=== PATIENT | female | born 1995 | race Caucasian/White ===

== ENCOUNTER 2024-02-25 18:43 | Emergency (ER) | payer OTHER, SELFPAY ==
[2024-02-25 18:45] VITALS: BP 138/60; PULSE 71; RESP 20; TEMP 36.5; O2SAT 100
[2024-02-25 21:34] LABS: Basophils Percent Auto 0.4 % (0.2-1.2); Eosinophils Absolute Auto 0.2 K/mm3 (0-0.3); Eosinophils Percent Auto 2.1 % (0-4.4); Hematocrit 33.5 % (37.0-47.0); Hemoglobin 10.7 g/dL (12.0-15.0); Immature Granulocyte Absolute 0.04 K/mm3 (0.00-0.031); Immature Granulocyte Percent A 0.4 % (0-0.5); Lymphocytes Absolute Auto 1.35 K/mm3 (0.9-3.2); Lymphocytes Percent Auto 12.9 % (18.3-44.2); Mean Corpuscular HGB Conc 31.9 g/dl (32-36); Mean Corpuscular Hemoglobin 25.5 pg (26-34); Mean Corpuscular Volume 79.8 fl (80-100); Mean Platelet Volume 9.2 fl (7.4-10.4); Monocytes Absolute Auto 0.5 K/mm3 (0.1-0.6); Monocytes Percent Auto 5.2 % (2.6-8.5); Neutrophils Absolute Auto 8.3 K/mm3 (1.3-6.7); Platelet Count Result 304 k/mm3 (150-375); Red Cell Distribution Width 14.7 % (11.5-14.5); White Blood Count 10.4 K/mm3 (4.5-10.0)
--- NOTE | 2024-02-25 21:38 | ED.GENADULT ---
HPI - General Adult General Chief complaint: Unspecified Stated complaint: muscle weakness after starting new med Time Seen by Provider: 02/25/24 20:38 History of Present Illness HPI narrative: This is a pleasant 28-year-old female who was recently started on Caplita by her psychiatrist over the weekend. She has taken 3 doses. She has now developed some lower extremity weakness and some thigh pain. Patient has not had uncontrollable movements or restlessness. She has never had side effects with this medication before. No other neurologic deficits. Exam Narrative: APPEARANCE: No apparent distress. Head: atraumatic. EYES: EOMI, NOSE: Atraumatic NECK: Trachea midline RESPIRATORY: No increased rate of breathing CARDIOVASCULAR: RRR, ABDOMINAL: Non-distended MUSCULOSKELETAl: Muscle tenderness to the thighs without skin changes NEURO: Alert. Cranial nerves 2-12 grossly intact. Sensation light touch, motor function cerebellar function intact for 4 extremities. Gait exam was normal. SKIN:: Warm, dry. Normal color PSYCHIATRIC: Normal affect Course Vital Signs Vital signs: Vital Signs Temperature 97.7 F 02/25/24 18:45 Pulse Rate 71 02/25/24 18:45 Respiratory Rate 20 02/25/24 18:45 Blood Pressure 138/60 02/25/24 18:45 Pulse Oximetry 100 02/25/24 18:45 Oxygen Delivery Room Air 02/25/24 18:45 Temperature 97.7 F 02/25/24 18:45 Pulse Rate 71 02/25/24 18:45 Respiratory Rate 20 02/25/24 18:45 Blood Pressure 138/60 02/25/24 18:45 Pulse Oximetry 100 02/25/24 18:45 Oxygen Delivery Room Air 02/25/24 18:45 Medical Decision Making [facility] Narrative Medical decision making narrative: -Course: 28-year-old female started on cap L presenting with subjective lower extremity weakness. No objective weakness on her physical exam. Laboratory studies including a CPK were unremarkable. Patient has been instructed to stop taking Caplita and follow-up with her psychiatrist. She is instructed return if her weakness is getting worse or she develops any other symptoms. -DDX includes but is not limited to: Rhabdomyolysis, medication side effects, MS, myopathy -Co-morbidities complicating care: Psychiatric illness -Independent interpretation of studies: -Shared decision making / Disposition: Discharged Vital Signs Vital Signs: Vital Signs Temperature 97.7 F 02/25/24 18:45 Pulse Rate 71 02/25/24 18:45 Respiratory Rate 20 02/25/24 18:45 Blood Pressure 138/60 02/25/24 18:45 Pulse Oximetry 100 02/25/24 18:45 Oxygen Delivery Room Air 02/25/24 18:45 Temperature 97.7 F 02/25/24 18:45 Pulse Rate 71 02/25/24 18:45 Respiratory Rate 20 02/25/24 18:45 Blood Pressure 138/60 02/25/24 18:45 Pulse Oximetry 100 02/25/24 18:45 Oxygen Delivery Room Air 02/25/24 18:45 Lab Data 02/25/24 21:28 02/25/24 21:28 Labs: Lab Results 02/25/24 Range/Units 21:28 WBC 10.4 H (4.5-10.0) K/mm3 RBC 4.20 (4.2-5.4) M/mm3 Hgb 10.7 L (12.0-15.0) g/dL Hct 33.5 L (37.0-47.0) % MCV 79.8 L (80-100) fl MCH 25.5 L (26-34) pg MCHC 31.9 L (32-36) g/dl RDW 14.7 H (11.5-14.5) % Plt Count 304 (150-375) k/mm3 MPV 9.2 (7.4-10.4) fl Immature Gran % (Auto) 0.4 (0-0.5) % Neut % (Auto) 79.0 H (45.5-73.1) % Lymph % (Auto) 12.9 L (18.3-44.2) % [place] % (Auto) 5.2 (2.6-8.5) % Eos % (Auto) 2.1 (0-4.4) % Baso % (Auto) 0.4 (0.2-1.2) % Lymph # (Auto) 1.35 (0.9-3.2) K/mm3 [place] # (Auto) 0.5 (0.1-0.6) K/mm3 Eos # (Auto) 0.2 (0-0.3) K/mm3 Baso # (Auto) 0.0 (0.0-0.1) K/mm3 Abs Immat Gran (auto) 0.04 H (0.00-0.031) K/mm3 Absolute Neuts (auto) 8.3 H (1.3-6.7) K/mm3 Absolute Nucleated RBC 0.000 (0.0-0.012) K/mm3 Nucleated RBC % 0.0 (0.0-0.2) % Sodium 134 L (137-145) mmol/L Potassium 4.0 (3.4-5.0) mmol/L Chloride 100 (98-107) mmol/L Carbon Dioxide 25 (22-30) mmol/L Anion Gap 9 (4-12)
[2024-02-25 21:46] LABS: Alanine Aminotransferase 12 U/L (6-35); Alkaline Phosphatase 73 U/L (38-126); Anion Gap 9 mmol/L (4-12); Aspartate Amino Transferase 15 U/L (14-36); Bilirubin,Total 0.3 mg/dL (0.2-1.3); Blood Urea Nitrogen 15 mg/dL (7-17); Calcium 8.5 mg/dL (8.4-10.2); Carbon Dioxide 25 mmol/L (22-30); Chloride 100 mmol/L (98-107); Creatine Kinase 41 U/L (30-135); Estimated CRCL calculation 76 ml/min; Estimated Glomerular Filt Rate > 60; Glucose 103 mg/dL (65-110); Sodium 134 mmol/L (137-145)
[2024-02-25 22:12] VITALS: BP 131/62; PULSE 69; RESP 19; O2SAT 97
== END 2024-02-25 22:14 | disposition home or self-care (01) ==
PROVIDERS: Emergency Provider Emergency Medicine
DX: R53.1 Weakness (principal); T43.595A Adverse effect of other antipsychotics and neuroleptics, initial encounter
CPT/HCPCS: 36415; 80053; 82550; 85025; 99283

== ENCOUNTER 2024-04-21 08:40 | Emergency (ER) | payer OTHER, SELFPAY ==
[2024-04-21] VITALS (28 sets, daily range): BP systolic 106–126; BP diastolic 52–70; PULSE 59–72; RESP 11–27; TEMP 36.6; O2SAT 96–99
--- NOTE | ~2024-04-21 | XR_ITS ---
XR chest 1V portable Ordering provider: Hector Maldonado MD History: 28 years Female with . SOB, GENERALIZED CP X 1WK. OPEN HEART 2019 . Comparison: December 24, 2012 FINDINGS: MEDIASTINUM: The cardiac silhouette is not enlarged. Postoperative changes in the mediastinum. LUNGS: No infiltrates, effusions or pneumothorax. OTHER: No free air under the diaphragm. IMPRESSION: No acute cardiopulmonary pathology. Reviewed, dictated and finalized at location A.
--- NOTE | 2024-04-21 08:47 | ECG_ITS ---
Test Date: 2024-04-21 08:55:06 Measurements Intervals [place] Rate: 61 P: 32 NH: 195 QRS: -18 QRSD: 120 T: 19 QT: 435 QTc: 440 Interpretive Statements SINUS RHYTHM INTRAVENTRICULAR CONDUCTION DELAY CONSIDER ANTEROSEPTAL INFARCT, AGE INDETERMINATE BASELINE ARTIFACT- II, III, V4-V6 ABNORMAL ECG No previous ECG available for comparison Electronically Signed On 04-21-2024 09:38:11 CDT by Leonel Calhoun D.O.
--- NOTE | 2024-04-21 08:59 | ED.CHESTPAIN ---
HPI - Chest Pain General Chief Complaint: Chest Pain Stated Complaint: CP, SOB, STATUS POST COVID Time Seen by Provider: 04/21/24 08:46 History of Present Illness HPI narrative: 28-year-old female presenting to the emergency department for evaluation for chest pain. Patient was diagnosed with COVID on April 06. Patient states she has had some worsening shortness of breath. Patient also had some left-sided chest pain on Sunday. Patient states then this morning she had onset of right-sided chest pain. 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 HEAD: normocephalic, atraumatic. EYES: PERRLA/EOMI, conjunctivae clear. NOSE: Normal no drainage EARS:TMS clear with good light reflex. THROAT: Pharynx clear, no exudate. NECK: Supple. No adenopathy, no masses. RESPIRATORY: Airway patent, respirations nonlabored. Clear to auscultation bilaterally, no rales, rhonchi, wheezing. CARDIOVASCULAR: Regular rate and rhythm without murmurs rubs or gallops. ABDOMINAL: Soft, nontender, nondistended, normal bowel sounds MUSCULOSKELETAL: Moves all extremities. Strength/ROM intact, No edema, No calf tenderness. NEURO: Alert. Cranial nerves II through XII intact. Grossly intact SKIN: Warm, dry. Normal Color Course Course Emergency Course: Patient was updated the results of her workup was comfortable the plan for discharge and close follow-up Vital Signs Vital signs: Vital Signs Temperature 98 F 04/21/24 08:51 Pulse Rate 62 04/21/24 08:51 Respiratory Rate 21 H 04/21/24 08:51 Blood Pressure 126/62 04/21/24 08:51 Pulse Oximetry 98 04/21/24 08:51 Oxygen Delivery Room Air 04/21/24 08:51 Temperature 98 F 09/16/24 08:51 Pulse Rate 61 04/21/24 13:33 Respiratory Rate 13 04/21/24 13:33 Blood Pressure 111/52 L 04/21/24 13:17 Pulse Oximetry 98 04/21/24 13:33 Oxygen Delivery Room Air 04/21/24 09:03 MDM - Chest Pain MDM Narrative Medical decision making narrative: 28-year-old female presented to the emergency department for evaluation for shortness of breath after recent COVID infection. Patient is afebrile with no leukocytosis and a stable hemoglobin 11.1. D-dimer was not elevated patient had negative serial troponins. Low concern for pulmonary embolism. Patient may just be and the recovery stage from her COVID. Patient was up to the results of the workup was comfortable the plan with close follow-up with primary care physician along with Cardiology. All questions concerns were addressed. Differential Diagnosis Differential diagnosis: Likely pneumothorax, atypical chest pain, chest pain and biliary colic Lab Data Attestation: I reviewed the patient's lab results. 04/21/24 09:01 04/21/24 09:01 Labs: Lab Results 04/21/24 04/21/24 Range/Units 09:01 11:50 WBC 9.1 (4.5-10.0) K/mm3 RBC 4.42 (4.2-5.4) M/mm3 Hgb 11.1 L (12.0-15.0) g/dL Hct 34.7 L (37.0-47.0) % MCV 78.5 L (80-100) fl MCH 25.1 L (26-34) pg MCHC 32.0 (32-36) g/dl RDW 15.4 H (11.5-14.5) % Plt Count 280 (150-375) k/mm3 MPV 9.4 (7.4-10.4) fl Immature Gran % (Auto) 0.3 (0-0.5) % Neut % (Auto) 77.4 H (45.5-73.1) % Lymph % (Auto) 13.7 L (18.3-44.2) % [place] % (Auto) 6.2 (2.6-8.5) % Eos % (Auto) 2.0 (0-4.4) % Baso % (Auto) 0.4 (0.2-1.2) % Lymph # (Auto) 1.24 (0.9-3.2) K/mm3 [place] # (Auto) 0.6 (0.1-0.6) K/mm3 Eos # (Auto) 0.2 (0-0.3) K/mm3 Baso # (A
[2024-04-21] MEDS: ASPIRIN 81 MG CHEWABLE TABLET 324 MG (09:02)
[2024-04-21 09:07] LABS: Basophils Percent Auto 0.4 % (0.2-1.2); Eosinophils Absolute Auto 0.2 K/mm3 (0-0.3); Hematocrit 34.7 % (37.0-47.0); Hemoglobin 11.1 g/dL (12.0-15.0); Immature Granulocyte Absolute 0.03 K/mm3 (0.00-0.031); Immature Granulocyte Percent A 0.3 % (0-0.5); Lymphocytes Absolute Auto 1.24 K/mm3 (0.9-3.2); Lymphocytes Percent Auto 13.7 % (18.3-44.2); Mean Corpuscular Hemoglobin 25.1 pg (26-34); Mean Corpuscular Volume 78.5 fl (80-100); Mean Platelet Volume 9.4 fl (7.4-10.4); Monocytes Absolute Auto 0.6 K/mm3 (0.1-0.6); Monocytes Percent Auto 6.2 % (2.6-8.5); Neutrophils Percent Auto 77.4 % (45.5-73.1); Platelet Count Result 280 k/mm3 (150-375); Red Blood Count 4.42 M/mm3 (4.2-5.4); Red Cell Distribution Width 15.4 % (11.5-14.5); White Blood Count 9.1 K/mm3 (4.5-10.0)
[2024-04-21 09:19] LABS: Partial Thromboplastin Time 25.8 Seconds (22.3-36.8); Prothrombin Time 13.1 Seconds (11.1-14.7)
[2024-04-21 09:26] LABS: Alanine Aminotransferase 11 U/L (6-35); Albumin Level 3.9 g/dL (3.5-5.1); Alkaline Phosphatase 62 U/L (38-126); Anion Gap 9 mmol/L (4-12); Aspartate Amino Transferase 17 U/L (14-36); Bilirubin,Total 0.2 mg/dL (0.2-1.3); Blood Urea Nitrogen 17 mg/dL (7-17); Calcium 8.8 mg/dL (8.4-10.2); Carbon Dioxide 23 mmol/L (22-30); Chloride 101 mmol/L (98-107); Estimated CRCL calculation 78 ml/min; Estimated Glomerular Filt Rate > 60; Glucose 107 mg/dL (65-110); Potassium 4.3 mmol/L (3.4-5.0); Sodium 133 mmol/L (137-145)
[2024-04-21 09:35] LABS: NT Pro B Type Natriuretic Pept 273 pg/mL (19.9-100); Troponin I < 0.012 ng/mL (0.000-0.034)
[2024-04-21 09:50] LABS: D Dimer 0.28 ug/mL (<0.48)
--- NOTE | 2024-04-21 12:02 | ECG_ITS ---
Test Date: 2024-04-21 12:07:39 Measurements Intervals [place] Rate: 58 P: 18 MN: 192 QRS: -21 QRSD: 123 T: 18 QT: 434 QTc: 429 Interpretive Statements SINUS BRADYCARDIA INTRAVENTRICULAR CONDUCTION DELAY BORDERLINE R WAVE PROGRESSION, ANTERIOR LEADS VOLTAGE CRITERIA FOR LVH BORDERLINE ECG Compared to ECG 04/21/2024 08:55:06 NO SIGNIFICANT CHANGE Electronically Signed On 04-21-2024 12:57:15 CDT by Leonel Calhoun D.O.
[2024-04-21 12:20] LABS: Troponin I < 0.012 ng/mL (0.000-0.034)
== END 2024-04-21 13:40 | disposition home or self-care (01) ==
PROVIDERS: Emergency Provider Emergency Medicine
DX: R06.02 Shortness of breath (principal); Q24.4 Congenital subaortic stenosis; Z86.16 Personal history of COVID-19; R00.1 Bradycardia, unspecified; I45.9 Conduction disorder, unspecified; R94.31 Abnormal electrocardiogram [ECG] [EKG]
CPT/HCPCS: 36415; 71045; 80053; 83880; 84484; 85025; 85380; 85610; 85730; 93005; 99284; A9270

== ENCOUNTER 2024-05-28 08:04 | Outpatient (CLI) | payer OTHER, SELFPAY ==
[2024-05-28 10:07] LABS: Lithium 0.4 mmol/L (0.6-1.2)
== END 2024-05-28 08:05 | disposition home or self-care (01) ==
PROVIDERS: Anesthesiology; Visit Provider Obstetrics & Gynecology
DX: Z79.899 Other long term (current) drug therapy (principal)
CPT/HCPCS: 36415; 80164; 80178

== ENCOUNTER 2024-05-30 00:38 | Day surgery (SDC) | payer OTHER, SELFPAY ==
[2024-05-15 14:39] VITALS: BMI 35.4
--- NOTE | 2024-05-15 14:39 | PC.NURSE ---
Report to the Outpatient Waiting Room, entrance under the green pavilion located off [facility], at time _0630__ on date _05/29/24___. Planned Procedure Time: _0830__.? Time changes happen often and if your time is changed the preop area will call you the afternoon before. - You and your visitor will be asked to self-screen and do not enter if you have any COVID symptoms. Please call surgeon if you need to reschedule. - A mask is optional within the hospital at this time. Patients may have clear liquids (water, carbonated beverages, clear teas, apple juice) until 3 hours prior to surgery with a maximum of 20 ounces. - No food from midnight until time of surgery and no smoking - Infants may have breast milk until 4 hours before surgery, infant formula 6 hours prior to surgery. - Children will be allowed to drink immediately following surgery.? If applicable, please bring a bottle or sippy cup to assist with drinking. Juice, water, soda, and popsicles are readily available.? For infants on formula, please bring formula the day of surgery.? Pacifiers are allowed. Take only the following medications with a SIP of water on the morning of surgery: __Divalproex and Lithium___ DO NOT STOP ANY OF YOUR OTHER PRESCRIPTION MEDICATIONS PRIOR TO SURGERY EXCEPT THE FOLLOWING Medications to discontinue per physician Vitamins and supplements 3 days prior to surgery Date to take last dose Please no make-up, nail vietnamese, hairspray, perfume, deodorant, or body powder the day of surgery.? No jewelry (including any body piercings) or valuables the day of surgery, leave them at home.? Please take a shower or bath the night before, or the morning of, surgery with an antibacterial soap.? Wear comfortable, loose fitting clothing.? Children are encouraged to wear pajamas. - Jewelry must be removed prior to entering the operating room.? Rings and piercings that are not removed may be cut off. - The hospital will not accept responsibility for valuables.? - Please leave all valuables, including medications, at home the day of surgery. If you are going home after surgery, a licensed personal driver must drive you home.? - NO public transportation without another adult if you receive anesthesia. - We recommend that an adult stay with you for 24 hours following discharge. - We also recommend that you do not drive, make important decision, drink alcoholic beverages, or take any drugs that were not prescribed by your health care provider for at least 24 hours after your discharge time. For Pediatric surgeries, we recommend two adults accompany the child home. Follow any additional instructions given to you from your surgeon. Telephone instructions given to _Mickie_and asked if any additional questions and then verbalized understanding. Patient advised to call surgeon office or pre surgery nurse liaison [phone] if any additional questions.
--- NOTE | 2024-05-26 08:18 | PC.NURSE ---
Report to the Outpatient Waiting Room, entrance under the green pavilion located off [facility], at time _1130_ on date _[id number]_. Planned Procedure Time: _130pm_.? Time changes happen often and if your time is changed the preop area will call you the afternoon before. - You and your visitor will be asked to self-screen and do not enter if you have any COVID symptoms. Please call surgeon if you need to reschedule. - A mask is optional within the hospital at this time. Patients may have clear liquids (water, carbonated beverages, clear teas, apple juice) until 3 hours prior to surgery with a maximum of 20 ounces. - No food from midnight until time of surgery and no smoking Take only the following medications with a SIP of water on the morning of surgery: ___Divalproex and Lithium____ DO NOT STOP ANY OF YOUR OTHER PRESCRIPTION MEDICATIONS PRIOR TO SURGERY EXCEPT THE FOLLOWING Medications to discontinue per physician ____Vitamins and supplements Date to take last [id number]___[phone] Please no make-up, nail upper sorbian, hairspray, perfume, deodorant, or body powder the day of surgery.? No jewelry (including any body piercings) or valuables the day of surgery, leave them at home.? Please take a shower or bath the night before, or the morning of, surgery with an antibacterial soap.? Wear comfortable, loose fitting clothing.? - Jewelry must be removed prior to entering the operating room.? Rings and piercings that are not removed may be cut off. - The hospital will not accept responsibility for valuables.? - Please leave all valuables, including medications, at home the day of surgery. If you are going home after surgery, a licensed four horse hitch driver must drive you home.? - NO public transportation without another adult if you receive anesthesia. - We recommend that an adult stay with you for 24 hours following discharge. - We also recommend that you do not drive, make important decision, drink alcoholic beverages, or take any drugs that were not prescribed by your health care provider for at least 24 hours after your discharge time. Follow any additional instructions given to you from your surgeon. Telephone instructions given to __Mickie__and asked if any additional questions and then verbalized understanding. Patient advised to call surgeon office or pre surgery nurse liaison [phone] if any additional questions.
--- NOTE | 2024-05-29 07:27 | PM.IMHP ---
H&P: HPI History of Present Illness Date/Time: 05/29/24 07:27 Chief Complaint: Desires permanent sterilization Narrative: 28-year-old nulliparous patient who is admitted laparoscopic tubal ligation. She has never had a baby in stage she firmly that she does not want to have a baby in the future. She has tried alternative medications including pills patches in injections and nothing has worked well. She understands this to be completely permanent and irreversible risks and benefits reviewed including not exclusive of , aspiration, bleeding, transfusion, perforation injury to bowel, bladder or other internal organs with need for open laparotomy. She received received the ACOG handout entitled sterilization for men and. She had all questions answered. She asked to proceed [facility] Social History Social History Smoking status: Never smoker Alcohol intake: never Substance use: never Substance use type: does not use Living arrangements: with family Spiritual care concerns: No Meds Home Medications and Allergies Home Medications Medication Instructions Recorded Confirmed Type divalproex 500 mg tablet,extended 500 mg PO BID 05/15/24 05/26/24 History release 24 hr fluvoxamine 100 mg tablet 100 mg PO DAILY 05/15/24 05/26/24 History hydroxyzine HCl 25 mg tablet 25 mg PO PRN PRN Anxiety 05/15/24 05/26/24 History lithium carbonate 150 mg capsule 150 mg PO BID 05/15/24 05/26/24 History melatonin 3 mg tablet 3 mg PO HS PRN Sleep 05/15/24 05/26/24 History propranolol 160 mg capsule,24 160 mg PO HS 05/15/24 05/26/24 History hr,extended release Allergies Allergy/AdvReac Type Severity Reaction Status Date / Time amoxicillin Allergy Hives Verified 05/26/24 08:24 clavulanic acid Allergy Hives Verified 05/26/24 08:24 [From Augmentin] rifamycin Allergy Hives Verified 05/26/24 08:24 Exam Const: General: cooperative, healthy appearing, comfortable and overweight Orientation/consciousness: oriented to person, oriented to place and oriented to time Chest: Chest palpation & inspection: normal inspection of the chest Resp: Effort & Inspection: normal respiratory effort Cardio: Rate: regular rate Rhythm: regular rhythm Heart sounds: S1 normal heart sound present and S2 normal heart sound present GI: Inspection: normal to inspection : External Female Exam: normal external appearance Speculum Exam - Vagina: normal appearance of the vagina Speculum Exam - Cervix: normal appearance of the cervix Bimanual exam- vagina & uterus: uterine size normal Bimanual Exam- Adnexa, other: normal adnexae Assessment and Plan Assessment and plan (1) Sterilization: Code(s): Z30.2 - Encounter for sterilization Status: Acute Plan Proceed with laparoscopic bilateral tubal ligation
[2024-05-30] VITALS (8 sets, daily range): BP systolic 122–147; BP diastolic 61–74; PULSE 63–75; RESP 12–21; TEMP 36.1–36.5; O2SAT 96–100
--- NOTE | 2024-05-30 06:32 | WPDHPUPDATE1 ---
History and Physical Update Update Date/Time: 05/30/24 06:32 History and Physical has been reviewed, including an updated exam of the patient. There are NO changes in the patient's condition. Risks, benefits, and alternatives have been discussed and questions answered. Patient agrees to proceed with procedure.
[2024-05-30] MEDS: LACTATED RINGERS 1,000 ML 30 ML IV CONT ×2 (11:38→13:47)
[2024-05-30] MEDS: ACETAMINOPHEN 500 MG TABLET 1000 MG PO (11:40)
[2024-05-30] MEDS: KETOROLAC 15 MG/ML VIAL (*BKC) IV PUSH ×2 (11:50→13:59)
[2024-05-30 11:52] LABS: BEDSIDEPREGUCG Negative (Negative)
--- NOTE | 2024-05-30 12:17 | P.PNAN_ITS ---
Anes - Initial Pre Proc Eval Procedure: Operation Date: 05/30/24 13:30 Proposed Procedures p Laparoscopic Bilateral Tubal Ligation with Fallopian Rings - Robert Maloney MD Date/Time: 05/30/24 12:17 Surgeon: Robert Maloney MD Pre Op Diagnosis: Desire Sterilization Patient Data Age: 28 Gender: F Height: 1.6 m Weight: 96.1 kg Last Vital Signs Temp 97.7 F 05/30/24 11:46 Pulse 63 05/30/24 11:46 Resp 16 05/30/24 11:46 BP 145/67 H 05/30/24 11:46 Pulse Ox 97 05/30/24 11:46 O2 Del Method Room Air 05/30/24 11:46 Allergies Allergy/AdvReac Type Severity Reaction Status Date / Time amoxicillin Allergy Hives Verified 05/30/24 11:24 clavulanic acid Allergy Hives Verified 05/30/24 11:24 [From Augmentin] rifamycin Allergy Hives Verified 05/30/24 11:24 Home Medications Medication Instructions Recorded Confirmed Type divalproex 500 mg tablet,extended 500 mg PO BID 05/15/24 05/26/24 History release 24 hr fluvoxamine 100 mg tablet 100 mg PO DAILY 05/15/24 05/26/24 History hydroxyzine HCl 25 mg tablet 25 mg PO PRN PRN Anxiety 05/15/24 05/26/24 History lithium carbonate 150 mg capsule 150 mg PO BID 05/15/24 05/26/24 History melatonin 3 mg tablet 3 mg PO HS PRN Sleep 05/15/24 05/26/24 History propranolol 160 mg capsule,24 160 mg PO HS 05/15/24 05/26/24 History hr,extended release hydrocodone 5 mg-acetaminophen 325 1 tablet PO Q4H PRN pain #20 tabs 05/30/24 Rx mg tablet hydrocodone 5 mg-acetaminophen 325 1 tablet PO Q4H PRN pain #20 tabs 05/30/24 Rx mg tablet Laboratory Tests 05/30/24 11:46 POC Urine HCG, Qual Negative (Negative) Patient hx anesthesia problems: none Family hx anesthesia problems: none Results Review: All pre-operative results and documents have been reviewed as part of the pre- operative evaluation. [facility] Social History Social History Smoking status: Never smoker Alcohol intake: never Substance use: never Substance use type: does not use Living arrangements: with family Spiritual care concerns: No Anes - Eval Final PreProcedure Day of Procedure 05/30/24 12:17 Patient weight: obese Heart: regular rate and rhythm Lungs: clear to auscultation Airway: Mallampati scale class II Neurological: alert and oriented Last oral intake: >/= 8 hours ASA classification: III Emergent: no Anesthetic plan: proceed Anesthesia type and monitoring: general ETT and standard monitoring Results Review: All pre-operative results and documents have been reviewed as part of the pre- operative evaluation. Hx of subaortic stenosis, sx x 3, most recent 2019 w good results. Pt active without cp or sob. MISA but noncompliant CPAP. Informed Consent: The patient's anesthetic plan and its attendant risks and benefits were discussed with the patient/family/POA. Questions were solicited and answers provided to the satisfaction of the patient/family/POA.
--- NOTE | 2024-05-30 13:01 | W.PM.PROC2 ---
Procedure Note - Detailed Date of Procedure 05/30/24 Pre-op Diagnosis Desire Sterilization Post-op Diagnosis Same Procedure Performed Laparoscopic bilateral tubal ligation via silastic rings Surgeon Robert Maloney MD Anesthesia General Indications 28-year-old female who desires permanent irreversible sterilization Findings normal appearing tubes and uterus as well as normal-appearing. appendix Gallbladder appeared Description of Procedure patient was prepped draped in the normal sterile fashion placed in the dorsal lithotomy position. Under excellent general endotracheal anesthesia speculum placed posterior fornix of vagina. Anterior lip of the cervix grasped with a single-tooth tenaculum. Rendon's cannula inserted the cervix and attached to the single-tooth to be used later for uterine manipulation. After emptying the bladder clear fluid the weighted speculum was removed the gloves were changed. An infraumbilical incision made and the Veress needle passed in the. Abdomen filled with CO2 gas to 15 of mercury. The 5mm trocar advanced under direct visualization with the Optiview no injury seen. Patient placed in Trendelenburg and a suprapubic incision. The 8 trocar advanced under visualization assuring injury the uterus was elevated in each tube and ovary were appeared. The right fallopian tube was grasped a good knuckle of tube was formed with the silastic ring photo documentation undertaken. In similar fashion the midportion left fallopian tube was grasped a good of tube formed photo documentation was with excellent blanching. No other abnormalities were seen in photo documentation was taken of the pelvis liver gallbladder appendix. Instruments withdrawn after gas was removed from the abdomen. Trocars removed the incisions closed with 4 Monocryl blood loss was 5cc. All sponge, needle, instrument counts were correct. There were no immediate complications noted Implants bilateral silastic bands Estimated Blood Loss 5 Drains No Packing No Pathology Yes Complications No immediate complications Condition Stable Disposition PACU
[2024-05-30] MEDS: fentaNYL CITRATE INJ (*CRX) 100 MCG/2 ML VIAL 25 MCG IV PUSH ×7 (13:26→13:49)
[2024-05-30] MEDS: oxyCODONE HCL (*CRX) 5 MG TAB IR PO (14:24)
== END 2024-05-30 15:10 | disposition home or self-care (01) ==
PROVIDERS: Visit Provider Obstetrics & Gynecology
PROC: (CPT 58671; principal; 2024-05-30 13:30)
DX: Z30.2 Encounter for sterilization (principal); E66.9 Obesity, unspecified; Z68.37 Body mass index [BMI] 37.0-37.9, adult; Z79.891 Long term (current) use of opiate analgesic
CPT/HCPCS: 58671; A4264; A9270; J1100; J1885; J2003; J2250; J2405; J2704; J3010; J7030; J7120

== ENCOUNTER 2024-09-11 13:07 | Outpatient (CLI) | payer OTHER, SELFPAY ==
--- NOTE | ~2024-09-11 | MMUS_ITS ---
EXAMINATION: MM diagnostic caty BI w aaron, US breast RT limited HISTORY: Right breast mass seen on recent CT. TECHNIQUE: Additional 3-D tomosynthesis images of the breasts were performed and synthetic 2-D images were generated. CAD analysis was submitted and interpreted. High resolution Limited right breast ult rasound was performed. COMPARISON: None BREAST PARENCHYMAL COMPOSITION: Not dense: There are scattered areas of fibroglandular density. FINDINGS: MAMMOGRAPHIC FINDINGS: There is no evidence for malignancy in the left breast. There is a irregular shaped poorly circumscri bed mass in the upper inner quadrant of the right breast, middle third. ULTRASOUND: Limited right breast ultrasound: At 2:00, 4 cm from the nipple there is a heterogeneous appearing pre dominantly hypoechoic lobulated mass with angular margins measuring 1.4 x 1.1 x 0.9 cm. No internal v ascularity or posterior features. This corresponds to the mammographic finding. IMPRESSION: 1. Complex 1.4 cm right breast mass at 2:00, 4 cm from the nipple. 2. Ultrasound-guided right breast biopsy recommended. BI-RADS category 4, suspicious findings. Reviewed, dictated and finalized at location B. ING MACHINE TENDER AUTOMATIC IMPRESSION: 1. Complex 1.4 cm right breast mass at 2:00, 4 cm from the nipple. 2. Ultrasound-guided right breast biopsy recommended. BI-RADS category 4, suspicious findings.
--- OUTSIDE RECORDS SUMMARY | 2024-09-11 13:14 | XMS_ITS | Encounter Summary ---
Author Organization [facility] Address [address] [place] [address] Care Team Providers Care Commercial Lending Vice President Name Role Phone Vj Flor MAURO Primary Care Provider [phone] Flora Ames MD Unavailable [phone] Jimmy Raphael Primary Care Provider Unavail able Encounter Details Date Type Department Care Team (Late st Contact Info) Description 04/30/2017 Abstract [facility] AT [address] [address] Yumiko Fletcher, [facility] Social History Tobacco Use Types Packs/Day Years Used Date Smoking Tobacco: Never Assessed Comments Unknown Sex and Gender Information Value Date Recorded Sex Assigned at Not on file Legal Sex Female 5:10 PM CDT Gender Identity Not on file Sexual Orientation Not on file documented as of this encounter Plan of Treatment Not on file documented as of this encounter Procedures Procedure Name Priority Date/Time Associated Diagnosis Comments VITAMIN D, 25 OH Routine 12/30/2016 CBC (OUTSIDE LAB) Routine 12/29/2016 BASIC METABOLIC PANEL Routine 12/29/2016 THYROID STIM HORMONE TSH Routine 12/29/2016 CBC (OUTSIDE LAB) Routine 07/21/2016 BNP Routine 07/21/2016 COMPREHENSIVE METABOLIC PANEL Routine 07/21/2016 documented in this encounter Results * VITAMIN D, 25 OH (12/30/2016) Pathologist [facility] VITAMIN D 25 HYDROXY S/P/B 80.5 12/30/2016 us Doc [facility] Abstract LABORATORY Final Result * CBC (OUTSIDE LAB) (12/29/2016) Pathologist [facility] WBC 4.3 HGB 13.2 HCT 39.5 PLT 265 RBC 4.95 12/29/2016 us Doc [facility] Abstract LAB-OUTSIDE/ABSTRACTED Final Result * (ABNORMAL) BASIC METABOLIC PANEL (12/29/2016) Pathologist [facility] SODIUM S/P/B 140 POTASSIUM S/P/B 4.6 CO2 22 CHLORIDE S/P/B 100 GLUCOSE 99 mg/dL CALCIUM S/P/B 9.7 BUN 15 CREATININE S/P/B 0.85 0.5 - 1.0 EGFR AFR. AMER. 112(A) <=90 EGFR NON-AFR. AMER. 97(A) <=90 12/29/2016 us Doc [facility] Abstract LABORATORY Final Result * THYROID STIM HORMONE, TSH (12/29/2016) Pathologist [facility] TSH 2.250 12/29/2016 us Doc [facility] Abstract LABORATORY Final Result * CBC (OUTSIDE LAB) (07/21/2016) Pathologist [facility] WBC 4.6 HGB 12.6 HCT 37.9 PLT 267 RBC 4.68 07/21/2016 us Doc [facility] Abstract LAB-OUTSIDE/ABSTRACTED Final Result * (ABNORMAL) COMPREHENSIVE METABOLIC PANEL (07/21/2016) SODIUM S/P/B 141 POTASSIUM S/P/B 4.3 CO2 22 CHLORIDE S/P/B 100 GLUCOSE 97 mg/dL CALCIUM S/P/B 9.2 BUN 14 CREATININE S/P/B 0.91 0.5 - 1.0 EGFR AFR. AMER. 104(A) <=90 EGFR NON-AFR. AMER. 90 <=90 ALKALINE PHOSPHATASE S/P/B 66 ALT 12 AST 18 BILIRUBIN TOTAL S/P/B <0.2 ALBUMIN S/P/B 4.9 3.5 - 5.0 TOTAL PROTEIN S/P/B 7.2 GLOBULIN 2.3 07/21/2016 us Doc [facility] Abstract LABORATORY Final Result * BNP (07/21/2016) B TYPE NATRIURETIC PEPTIDE 39.3 07/21/2016 us Doc [facility] Abstract LABORATORY Final Result documented in this encounter Visit Diagnoses Not on filedocumented in this encounter Care Teams Commercial Lending Vice President Relationship Specialty Start Date End Date Flor Zabala NP [address] [facility] [address] [place] [address] PCP - General FAMILY PRACTICE 01/05/16 09/24/22 Jimmy Raphael PA [address] [facility]. [facility] [address] [place] [address] PCP - General PHYSICIAN CHARTER SCHOOL EXECUTIVE DIRECTOR 09/25/22 Flora Ames MD Three [facility]. [facility] [address] [place] [address] Julio C Powder Nipper CARDIOVASCULAR DISEASE 05/02/17 documented as of this encounter
--- OUTSIDE RECORDS SUMMARY | 2024-09-11 13:14 | XMS_ITS | Encounter Summary ---
Author Organization [facility] Address [address] [place] [address] Care Team Providers Care Crusher Loader Operator Name Role Phone Flor Zabala SENIOR QUALITY ENGINEER Primary Care Provider [phone] Flora Ames MD Unavailable [phone] Jimmy Raphael Primary Care Provider Unavail able Encounter Details Date Type Department Care Team (Late st Contact Info) Description 01/20/2019 Discharge [facility] Physical Therapy [address] [place] [address] Roberta Vigil, BARBARA Social History Tobacco Use Types Packs/Day Years Used Date Smoking Tobacco: Never Smokeless Tobacco: Never Alcohol Use Standard Drinks/Week Comments Yes 0 (1 standard drink = 0.6 oz pur e alcohol) occasional Comments No Sex and Gender Information Value Date Recorded Sex Assigned at Not on file Legal Sex Female 5:10 PM CDT Gender Identity Not on file Sexual Orientation Not on file 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 [place] [address] PCP - General PHYSICIAN RV SERVICER 09/25/22 Flora Ames MD [address] [place] [address] [employer] Commercial Energy Rater CARDIOVASCULAR DISEASE 05/02/17 documented as of this encounter
--- OUTSIDE RECORDS SUMMARY | 2024-09-11 13:14 | XMS_ITS | Encounter Summary ---
Author Organization [facility] Address [address] [facility] [address] [place] [address] Phone Care Team Providers Care Shipmaster Name Role Phone VjFlor MAURO Primary Care Provider [phone] Angie Velazquez MD Unavailable [phone] Otto Potts MD, Leonardo Walden Primary Care Provide r [place] Stephanie Liz [facility] Unavailable [phone] Jimmy Raphael Primary Care Provider [phone] Unknown, Notinfile Primary Care Provider Unavail able Encounter Details Date Type Department Care Team (Late st Contact Info) Description 01/17/2018 Telephone [facility] Scheduling [address] [place], [place] [id number] [place] [address] [address] [place] [address] Social History Tobacco Use Types Packs/Day Years Used Date Smoking Tobacco: Never Comments Unknown Sex and Gender Information Value Date Recorded Sex Assigned at Not on file Legal Sex Female 1:47 AM PHOTOGRAPHER AERIAL Gender Identity Not on file Sexual Orientation Not on file documented as of this encounter Plan of Treatment Not on file documented as of this encounter Visit Diagnoses Not on filedocumented in this encounter Additional Health Concerns Infection Onset Date Last Indicated Resolved Time COVID: Suspected 03/20/2022 03/20/2022 03/21/2022 3:05 AM CDT COVID: Suspected 03/20/2022 03/20/2022 03/21/2022 3:39 AM CDT COVID: Suspected 05/19/2022 05/19/2022 05/20/2022 2:42 AM CDT COVID19 Comment:Added from the Screening question BPA, identifying patients that tested positive for COVID in the last 14 days and the result is from a facility outside [facility] . 07/23/2022 07/23/2022 08/02/2022 3:05 AM PHOTOGRAPHER AERIAL COVID: Recovered Comment:Added based on recent COVID infection. 08/02/2022 08/03/2022 10/31/2022 3:05 AM C DT documented as of this encounter Care Teams Shipmaster Relationship Specialty Start Date End Date Flor Zabala NP PCP - General 02/13/17 03/27/22 Leonardo Menjivar Jr., MD [address] [place] [address] PCP - General Internal Medicine 03/28/22 09/19/22 Jimmy Raphael PA [address] [place] [address] PCP - General Physician Internet Sales Director 09/20/22 04/20/24 Unknown, Notinfile PCP - General 04/29/24 Angie Velazquez MD Referring Physician Cardiology 07/25/18 Stephanie Anderson, BUDGET OFFICER [address] [place] [address] Nurse Practitioner Psychiatry 03/28/22 documented as of this encounter
--- OUTSIDE RECORDS SUMMARY | 2024-09-11 13:14 | XMS_ITS | Encounter Summary ---
Author Organization [facility] Address [address] [facility] [address] [place] [address] Phone Care Team Providers Care Appeals Representative Name Role Phone VjFlor MAURO Primary Care Provider [phone] Angie Velazquez MD Unavailable Otto Potts MD, Leonardo Walden Primary Care Provide r [place] Stephanie Liz [facility] Unavailable [phone] Jimmy Raphael Primary Care Provider [phone] Unknown, Notinfile Primary Care Provider Unavail able Encounter Details Date Type Department Care Team (Late st Contact Info) Description 11/06/2018 Telephone [facility] Cardiology [address] [facility] Advanced Medicine 8th [place] [address] [place] [address] Angie Velazquez MD [address] [place] [address] Social History Tobacco Use Types Packs/Day Years Used Date Smoking Tobacco: Never Smokeless Tobacco: Never Alcohol Use Standard Drinks/Week Comments No 0 (1 standard drink = 0.6 oz pur e alcohol) Comments Unknown Sex and Gender Information Value Date Recorded Sex Assigned at Not on file Legal Sex Female 1:47 AM STORE GIFT WRAP ASSOCIATE Gender Identity Not on file Sexual Orientation [...] the result is from a facility outside [facility] . 07/23/2022 07/23/2022 08/02/2022 3:05 AM STORE GIFT WRAP ASSOCIATE COVID: Recovered Comment:Added based on recent COVID infection. 08/02/2022 08/03/2022 10/31/2022 3:05 AM C DT documented as of this encounter Care Teams Appeals Representative Relationship Specialty Start Date End Date Flor Zabala NP PCP - General 02/13/17 03/27/22 Leonardo Menjivar Jr., MD [address] [place] [address] PCP - General Internal Medicine 03/28/22 09/19/22 Jimmy Raphael PA [address] [place] [address] PCP - General Physician Associate 09/20/22 04/20/24 Unknown, Notinfile PCP - General 04/29/24 Angie Velazquez MD Referring Physician Cardiology 07/25/18 Stephanie Anderson, CATALYTIC CASE OPERATOR [address] [place] [address] Nurse Practitioner Psychiatry 03/28/22 documented as of this encounter
--- OUTSIDE RECORDS SUMMARY | 2024-09-11 13:14 | XMS_ITS | Encounter Summary ---
Author Organization [facility] Address [address] [place] [address] Care Team Providers Care Managing Partner Digital Content Marketing [place] Name Role Phone Flor Zabala EQUIPMENT OPERATOR WAREHOUSE Primary Care Provider [phone] Flora Ames MD Unavailable [phone] Jimmy Raphael Primary Care Provider Unavail able Encounter Details Date Type Department Care Team (Late st Contact Info) Description 03/12/2019 Discharge [facility] Physical Therapy [address] [place] [address] Brandi Victoria, PT Social History Tobacco Use Types Packs/Day Years [...] 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 [place] [address] PCP - General PHYSICIAN HOD CARRIER 09/25/22 Flora Ames MD [address] [place] [address] [place] Nurse Midwife/Clinical Instructor CARDIOVASCULAR DISEASE 05/02/17 documented as of this encounter
--- OUTSIDE RECORDS SUMMARY | 2024-09-11 13:14 | XMS_ITS | Clinical Summary ---
Author Organization [facility] Care Team Providers Care Typesetter Apprentice Name Role Phone Unavailable Primary Care Provider Unavailabl e Social History Tobacco Use Types Packs/Day Years Used Date Smoking Tobacco: Never Assessed Comments Unknown Sex and Gender Information Value Date Recorded Sex Assigned at Not on file Legal Sex Female 9:20 AM STREETCAR STARTER Gender Identity Not on file Sexual Orientation Not on file Plan of Treatment Health Maintenance Due Date Last Done Comments Hepatitis C Virus (HCV) Screening 1993 Pap Smear 2014 Cervical Cancer Screening (CCS) 12/21/2023 HPV/Cotest 12/21/2023 Influenza Immunization (#1) 2024 09/0 08/2019, 05/01/2019, 05/07/2015, Additional history exists SARS-COV-2 Immunization ( season) 2024 06/07/2021, 09/09/2020, 08/09/2020, Additional history exists Respiratory Syncytial Virus (RSV) Immunization (Adult) (1 - 1-dose 75+ series) 2068 Hepatitis B Immunization Completed 998, 06/06/1994, 04/06/1994, Additional history exists Meningococcal Immunization (ACWY) Aged Out 06/11/2008 No longer eligible based on patient's age to complete this topic DTaP/Tdap/Td Immunization Discontinued 2016, 03/19/2009, 06/11/2008, Additional history exists TdaP Immunization Completed 11/10/2016, , 06/11/2008 Pneumococcal Immunization Combined Aged Out No longer eligible based on patient's age to complete this topic Rotavirus Immunization Aged Out No lo nger eligible based on patient's age to complete this topic
--- OUTSIDE RECORDS SUMMARY | 2024-09-11 13:14 | XMS_ITS | Clinical Summary ---
Author Organization [facility] Address [address] [place] [address] Care Team Providers Care Temp Recruiter Name Role Phone Flora Ames MD Unavailable [phone] Jimmy Raphael Primary Care Provider Unavail able Allergies Active Allergy Reactions Criticality Noted Date Comments Amoxicillin-Pot Clavulanate Hives 05/04/20 17 Erythromycin Hives 05/04/2017 Penicillins Hives 05/04/2017 Cefixime Hives 05/04/2017 Medications buPROPion 24 hr 150 MG 24 hr tablet Take 1 tablet (150 mg total) by mouth every morning. 1 05/07/2017 Active Cariprazine HCl (VRAYLAR) 4.5 MG Cap Take 4.5 mg by mouth daily. Active ARIPiprazole 10 MG tablet Take 5 mg by mouth daily. 06/12/2021 Active LORazepam 1 MG tablet Take 1 mg by mouth 3 (three) times daily as needed for Anxiety. Pt takes two at night 07/02/2021 Active propranolol 40 MG tablet Take 40 mg by mouth 3 (three) times a day. 07/01/2021 Active ibuprofen (MOTRIN) 600 MG tablet Take 1 tablet (600 mg total) by mouth every 6 (six) hours as needed. 20 tablet 04/24/2023 Active Active Problems Problem Noted Date Diagnosed Date Chest pain 07/15/2021 Carpal tunnel syndrome of right wrist 01/04/2021 Rotator cuff tendonitis, right 01/04/2021 Subaortic stenosis (HHS/HCC) 05/07/2017 Palpitations 05/07/2017 Congenital heart disease (HHS/HCC) Family History Medical History Relation Comments Diabetes Father Hyperlipidemia Father gerd Father Cancer Maternal Grandfather Hyperlipidemia Maternal Grandmother Hypertension Maternal Grandmother Fibromyalgia Mother Hypertension Mother degeneration of intervertebral disc Mother CABG Paternal Grandfather several CABG Paternal Grandmother carotid stenosis Paternal Grandmother Raynaud's Sister gerd Sister hip dysplasia Sister Relation Status Comments Father Alive Maternal Grandfather Maternal Grandmother Alive Mother Alive Paternal Grandfather (Age 67) Paternal Grandmother Alive Sister Alive Social History Tobacco Use Types Packs/Day Years Used Date Smoking Tobacco: Never Smokeless Tobacco: Never Tobacco Cessation:Counseling Given: Not Answered Alcohol Use Standard Drinks/Week Comments Not Currently 0 (1 standard drink = 0.6 oz pur e alcohol) PHQ-2 Answer Date Recorded PHQ-2 Score - If the patient scores above 3, please move on to questions 3-9 0 01/04/2021 Comments No Sex and Gender Information Value Date Recorded Sex Assigned at Not on file Legal Sex Female 5:10 PM CDT Gender Identity Not on file Sexual Orientation Not on file 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 Not on shannon e Last Filed Vital Signs Vital Sign Reading Time Taken Comments Blood Pressure 114/70 08/14/2023 2:48 PM NEUROPSYCHIATRIC AIDE Pulse 66 08/14/2023 2:48 PM NEUROPSYCHIATRIC AIDE Temperature 36.3 C (97.4 F) 08/14/2023 2:48 PM NEUROPSYCHIATRIC AIDE Respiratory Rate 18 08/14/2023 2:48 PM NEUROPSYCHIATRIC AIDE Oxygen Saturation 99% 08/14/2023 2:48 PM NEUROPSYCHIATRIC AIDE Inhaled Oxygen Concentration - - Weight 88.5 kg (195 lb) 08/14/2023 2:48 PM NEUROPSYCHIATRIC AIDE Height 157.5 cm (5' 2 ) 08/14/2023 2:48 PM NEUROPSYCHIATRIC AIDE Body Mass Index 35.67 08/14/2023 2:48 PM NEUROPSYCHIATRIC AIDE Plan of Treatment Health Maintenance Due Date Last Done Comments Cervical Cancer Screening Pap Smear (Age 30 to 64) Every 3 Years 1993 Annual Physical 1996 Hepatitis C 12/21/2011 Cervical Cancer Screening Pap with HPV Testing (Age 30 to 64) Every 5 Years 12/21/2023 Cervical Cancer Screening with HPV 12/21/2023 COVID-19 Vaccine ( season) 2024 09/09/2020, 08/09/2020, 08/09/2019 Influenza Adult (#1) 2024 05/03/2019, 05/07/2015, 06/01/2010 DTaP, Tdap and Td Vaccines (9 - Td or Tdap) 11/10/2026 11/10/2016, 03/19/2009, 06/11/2008, Additional history exists Hepatitis B Vaccines Completed 12/04/1997, 06/06/1994, 04/06/1994, Additional history exists Meningococcal Vaccine Aged Out 06/11/2008 No janene saji eligible based on patient's age to complete this topic HPV Vaccines Completed 11/12/2015, 09/2014, 06/01/2010 Meningococcal B Vaccine Aged Out No l onger eligible based on patient's age to complete this topic Pneumococcal Vaccine: Pediatrics (0 to 5 Years) and At-Risk Patients (6 to 64 Years) Aged Out No longer eligible based on patient's age to complete this topic RSV Immunizations Under 20 Months Aged Out No longer eligible based on patient's age to complete this topic Insurance Care Teams Temp Recruiter Relationship Specialty Start Date End Date Jimmy Raphael PA [address] [facility] [address] [place] [address] PCP - General PHYSICIAN MERCURY RECOVERER 09/25/22 Flora Ames MD [address] [facility] [address] [place] [address] [place] Antique Refinisher CARDIOVASCULAR DISEASE 05/02/17
--- OUTSIDE RECORDS SUMMARY | 2024-09-11 13:14 | XMS_ITS | Clinical Summary ---
Author Organization [facility] Address [address] [place] [address] Care Team Providers Care Nut Chopper Name Role Phone Angie Velazquez MD Unavailable [phone] Stephanie Anderson INTEGRATED MARKETING SPECIALIST Unavailable [phone] Unknown, Notinfile Primary Care Provider Unavail able Allergies Active Allergy Reactions Criticality Noted Date Comments Amoxicillin-Pot Clavulanate Unknown,Hives Medium 07/11 Cefixime Unknown,Hives High 07/11/2011 Erythromycin Hives High 05/04/2017 Erythromycin Base Hives Medium 07/11/2011 Erythromycin-Benzoyl Peroxide Rash Medium 2010 Lamotrigine Itching Low 09/03/2020 Penicillins Hives High 07/11/2011 Medications Estarylla 0.25-35 mg-mcg per tablet Take 1 tablet by mouth daily 28 tablet 12 2 Active propranolol LA (INDERAL LA) 160 mg 24 hr capsuleIndicati ons:Congenital heart disease in adult TAKE 1 CAPSULE(160 MG) BY MOUTH DAILY 30 capsule 11 4 Active melatonin tablet Take by mouth nightly as needed 4 Active divalproex ER (DEPAKOTE ER) 500 mg 24 hr tablet Take 1 tablet (500 mg total) by mouth 2 (two) times a day 4 Active lithium 150 mg capsule Take 1 capsule (150 mg total) by mouth 2 (two) times a day 4 Active fluvoxaMINE (LUVOX) 100 mg tablet Take 1 tablet (100 mg total) by mouth nightly 4 Active hydrOXYzine (ATARAX) 10 mg tablet every 8 hours 4 Active Invega 3 mg 24 hr tablet 5 Active guanFACINE (TENEX) 1 mg tablet 5 Active ARIPiprazole (ABILIFY) 20 mg tablet Take 1 tablet (20 mg total) by mouth daily Takes 30 mg daily 09/01/19 25 Discontinu ed(Therapy completed) Active Problems Problem Noted Date Diagnosed Date Spondylosis of lumbar region without myelopathy or radiculopathy 07/08/2024 Tremor 03/11/2024 Assessment & Plan (03/11/2024 4:41 PM CDT): Mickie is a 28 y.o. female with a history of OCD and Bipolar disorder on Winkelman and Congenital heart disease on propranolol who presents for tremor. Today, evaluation reveals a kinetic/action tremor that is concerning for drug- induced tremor vs rapid progression essential tremor. Discussed the possibility of drug-induced tremor with patient and reaching out to Abby Adam for alternative medications for mood and monitoring for improvement in tremor. Would rule out drug-induced tremor prior to diagnosis of essential tremor. If there is no improvement after medication change would address concerns for essential tremor that has progressed rapidly despite propranolol therapy. Mickie would prefer to address lithium medication rather than propranolol. Additionally, we will include a letter for her work explaining her diagnosis and required accommodations. Yuli Barker MD Department of Pediatric Neurology, [facility] Division of Movement Disorders Lumbar back pain 05/02/2022 Assessment & Plan (05/02/2022 4:56 PM CDT): Has done NSAIDs, flexeril and PT. No improvement in symptoms. We will request the MRI again. Multiple joint pain 03/28/2022 Positive MINDY (antinuclear antibody) 03/28/2022 POTS (postural orthostatic tachycardia syndrome) 04/27/2020 Class 3 severe obesity due t o excess calories without serious comorbidity with body mass index (BMI) of 40.0 to 44.9 in adult 04/27/2020 Subaortic membrane 07/25/2018 PCOS (polycystic ovarian syndrome) 06/12/2018 Congenital heart disease in adult 01/23/2018 Overview (01/23/2018): Subaortic membrane. Resected age 2 and again age 10. Echo showed moderate obstruction due to membrane (58 mm Hg). Anxiety 01/23/2018 Assessment & Plan (05/02/2022 4:56 PM CDT): Has been on ativan for several years, of note, 1-2 weeks before her seizure episode she tried stopping her ativan because she has always wanted to come off of it. I will let neurology know about this information Depression 01/23/2018 Palpitations 01/23/2018 Encounters Date Type Department Care Team Description 09/01/2024 7:34 AM CAR DELIVERER - 09/01/2024 11:59 PM [facility] Hospital Encounter [facility] at [address], [address] [place] [address] Kiara Pollock MD Spondylosis of lumbar region without myelopathy or radiculopathy Discharge Disposition: Discharge to home or self care 08/29/2024 Telephone [facility] at [address], [address] [place] [address] Kiara Pollock MD pre sedation call 07/10/2024 Orders Only [facility] at [address], [address] [place] [address] Kiara Pollock MD Spondylosis of lumbar region without myelopathy or radiculopathy (Primary Dx) 07/08/2024 2:43 PM CAR DELIVERER - 07/08/2024 11:59 PM [facility] Hospital Encounter [facility] at [address], [address] [place] [address] Kiara Pollock MD Spondylosis of lumbar region without myelopathy or radiculopathy Discharge Disposition: Discharge to home or self care 07/08/2024 Telephone [facility] at [address], [address] [place] [address] Kiara Pollock MD POST LMBB #2 from Last 3 Months Immunizations Name Administration Dates Next Due DTaP, Unspecified 12/25/1997, 5,07/06/1994,04/06/1994, 02/03/1994 HPV, Quadrivalent 06/01/2010 HPV9 11/12/2015,05/07/2015 Hep A, Pediatric 03/19/2009,06/11/2008 Hep B, Adolescent or Pediatric 12/04/1997,1993,04/06/1994,02/03/1994 HiB 12/25/1997,07/06/1994,04/06/1994 ,02/03/1994 Influenza, Unspecified 05/02/2022(Deferr ed: Patient Refused),05/07/2015,06/01/2010 MMR 12/25/1997,07/06/1994 Meningococcal ACWY, Unspecified 06/11/2008 Polio, Unspecified 12/25/1997, 5,07/06/1994,04/06/1994, 02/03/1994 Tdap 11/10/2016,03/19/2009,06/11/2008 Varicella 08/22/2011,09/06/1997 Surgical History Surgery Date Site/Laterality Comments SUBAORTIC STENOSIS REPAIR Intiially in 09/1998 ([place]) and then in 01/02/06 ([facility]) KONNO PROCEDURE 01/02/2006 modified EXAMINATION UNDER ANESTHESIA 08/12/2018 NAUN Medical History Medical History Date Comments Palpitations 01/23/2018 treated with met oprolol; Prior Holter monitor showed rare PACs and PVCs. She has noted some improvement with higher dosing of metoprolol. 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/25/2018 Resection at age of 2 years of age in 1998 and repeated in 2005 with modified Konno procedure Arthritis Heart disease Abnormal ECG Aortic stenosis Asthma Bipolar disorder (HCC) Chest pain Kidney infection Disc disorder of lumbar region Lumbar stenosis Mitral valve regurgitation Chronic pain disorder Low back pain Family History Medical History Relation Name Comments Diabetes Father Breast cancer Maternal Grandfather Cancer Maternal Grandfather Hypertension Maternal Grandmother Hypertension Mother Irritable bowel syndrome Other 1 Asthma Other 2 Diabetes Other 3 Gallbladder disease Other 4 Lung cancer Other 5 Migraines Other 5 Throat cancer Other 5 oral cancer Other 5 Diabetes Paternal Grandfather Heart disease Paternal Grandfather Diabetes Paternal Grandmother Heart disease Paternal Grandmother Relation Name Status Comments Father Alive Maternal Grandfather Maternal Grandmother Mother Alive Other 1 Other 2 Other 3 Other 4 Other 5 Paternal Grandfather Paternal Grandmother Social History Tobacco Use Types Packs/Day Years Used Date Smoking Tobacco: Never Smokeless Tobacco: Never Tobacco Cessation:Counseling Given: Not Answered Alcohol Use Standard Drinks/Week Comments No 0 (1 standard drink = 0.6 oz pur e alcohol) AUDIT-C Answer Date Recorded Q1: How often do you have a drink containing alcohol? Never 07/08/2024 Q2: How many drinks containi ng alcohol do you have on a typical day when you are drinking? Patient does not drink Q3: How often do you have si x or more drinks on one occasion? Never 07/08/2024 PHQ-2 Answer Date Recorded PHQ-2 Total Score (If total score is 3 or more points, staff should administer the PHQ-9) 2 08/03/2022 Personal Safety Answer Date Recorded Have you ever been in or are you currently in a harmful physical or emotional relationship or is someone making you feel afraid or unsafe? Denies 04/11/2023 Comments No Sex and Gender Information Value Date Recorded Sex Assigned at Not on file Legal Sex Female 1:47 AM CAR DELIVERER Gender Identity Not on file Sexual Orientation Not on file Obstetrics History Para Term AB IAB SAB Ectopic Multiple Livin g Live Births 0 0 0 0 0 0 0 0 0 0 0 Comments Menarche 10 Last Filed Vital Signs Vital Sign Reading Time Taken Comments Blood Pressure 110/57 09/01/2024 9:24 AM CAR DELIVERER Pulse 69 09/01/2024 9:24 AM CAR DELIVERER Temperature 36 C (96.8 F) 09/01/2024 7:43 AM CAR DELIVERER Respiratory Rate 15 09/01/2024 9:24 AM CAR DELIVERER Oxygen Saturation 98% 09/01/2024 9:24 AM CAR DELIVERER Inhaled Oxygen Concentration - - Weight 99.8 kg (220 lb) 09/01/2024 7:43 AM CAR DELIVERER Height 157.5 cm (5' 2 ) 09/01/2024 7:43 AM CAR DELIVERER Body Mass Index 40.24 09/01/2024 7:43 AM CAR DELIVERER Plan of Treatment Health Maintenance Due Date Last Done Comments Cervical Cancer Screening 1993 Hepatitis C Screening 1993 Regular Well Visit/Exam 18-64 12/21/2011 Influenza Vaccine (#1) 2024 05/07/2015, 2009 Depression Screening 03/11/2025 03/11/2024, 08/03/2022, 05/02/2022, Additional history exists DTaP/Tdap/Td Vaccine (9 - Td or Tdap) 11/10/2026 11/10/2016, 03/19/2009, 06/11/2008, Additional history exists Hepatitis B Screening Completed 12/04/1997 , 06/06/1994, 04/06/1994, Additional history exists Varicella Vaccines Completed 08/22/2011, 09/06/1997 HPV Vaccines Completed 11/12/2015, 09/2014, 06/01/2010 Pneumococcal vaccine <65 Aged Out No longer eligible based on patient's age to complete this topic Goals Goal Patient Goal Type Associated Problems Recent Progress Patient-Stated? Author CCM Chronic Pain Care Plan Chronic Care Management No Amparo Talley, MAYR Note: Problem: Chronic Pain Goals: 1. Minimize further functional decline 2. Maximize quality of life 3. Control pain Strategies: - Activity/exercise program recommendation - Conservative stepwise pain medicine strategy with multi-disciplinary approach - Recommend healthy lifestyle strategies and compensatory methods as needed Reduce the likelihood of falling Lifestyle No Amparo Talley, RN Note: Below are four things you can do to prevent falls: Begin an exercise program to improve your leg strength & balance Ask your doctor or pharmacist to review your medicines Get annual eye check-ups & update your eyeglasses Make your home safer by: Removing clutter & tripping hazards Putting railings on all stairs & adding grab bars in the bathroom Having good lighting, especially on stairs Contact your local community or senior center for information on exercise, fall prevention programs, or options for improving home safety. Procedures Procedure Name Priority Date/Time Associated Diagnosis Comments PAIN MGMT IMAGING LUMBAR/SACRAL ABLATION BILATERAL Schedule Routine, Read Routine (OP Routine) 09/01/2024 9:02 AM CAR DELIVERER Spondylosis of lumbar region without myelopathy or radiculopathy PAIN MGMT IMAGING LUMBAR/SACRAL FACET/ MEDIAL BRANCH BLOCK BILATERAL Schedule Routine, Read Routine (OP Routine) 07/08/2024 4:25 PM CAR DELIVERER Spondylosis of lumbar region without myelopathy or radiculopathy from Last 3 Months Results * Imaging Lumbar/Sacral Medial Branch RFA Bilateral ([id number]) (09/01/2024 9:02 AM CAR DELIVERER) Narrative [facility] - 09/01/2024 9:03 AM CAR DELIVERER The images from this study are not interpreted by Radiology. Please refer to the physician's procedure / OR operative note. Kiara FERRELL PAIN MGMT PROCEDURES F inal Result Performing Organization Address [facility] de Phone Number [facility] * Imaging Lumbar/Sacral Facet Medial Branch Block Bilateral ([id number]) (07/08/2024 4:25 PM CAR DELIVERER) Narrative [facility] - 07/08/2024 4:25 PM CAR DELIVERER The images from this study are not interpreted by Radiology. Please refer to the physician's procedure / OR operative note. Kiara Pollock MD Roberto PAIN MGMT PROCEDURES F inal Result Performing Organization Address [facility] de Phone Number [facility] from Last 3 Months Insurance [employer] HEALTHLINK OPEN ACCESS HEALTHLINK OPEN ACCESS [email or web address] OPEN ACCESS HEALTHLINK OPEN ACCESS HEALTHLINK OPEN ACCESS Advance Directives For more information, please contact: [phone] Documents on File Type Date Recorded Patient Edge Gluer Expl anation ADVANCE DIRECTIVE 09/03/2018 5:49 AM ADVANCE DIRECTIVE 08/28/2018 12:47 PM * Full Code (Latest Code Status on File) Date Activated Date Inactivated Comments 09/03/2018 12:59 PM 09/06/2018 9:00 PM Care Teams Nut Chopper Relationship Specialty Start Date End Date Unknown, Notinfile PCP - General 04/29/24 Angie Velazquez MD Referring Physician Cardiology 07/25/18 Stephanie Anderson, BARBIE [address] [place] [address] Nurse Practitioner Psychiatry 03/28/22
--- OUTSIDE RECORDS SUMMARY | 2024-09-11 13:14 | XMS_ITS | Encounter Summary ---
Author Organization [facility] Address [address] [place] [address] Care Team Providers Care Downstream Biomanufacturing Technician Name Role Phone Vj Flor WADE Primary Care Provider [phone] Flora Ames MD Unavailable [phone] Jimmy Raphael Primary Care Provider Unavail able Encounter Details Date Type Department Care Team (Late st Contact Info) Description 06/21/2021 Marvint Message Enc [facility] - [facility] [address] [facility], [address] [place] [address] Roberta Roman, FACILITY SALES AND ADMIN-C RE: Other Social History Tobacco Use Types Packs/Day Years Used Date Smoking Tobacco: Never Smokeless Tobacco: Never Alcohol Use Standard Drinks/Week Comments Yes 0 (1 standard drink = 0.6 oz pur e alcohol) occasional PHQ-2 Answer Date Recorded PHQ-2 Score - If the patient scores above 3, please move on to questions 3-9 0 01/04/2021 Comments No Sex and Gender Information Value Date Recorded Sex Assigned at Not on file Legal Sex Female 5:10 PM CDT Gender Identity Not on file Sexual Orientation Not on file 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 No / Unsure 06/22/2021 2:59 PM PATCH WASHER documented as of this encounter Plan of Treatment Not on file documented as of this encounter Visit Diagnoses Not on filedocumented in this encounter Care Teams Downstream Biomanufacturing Technician Relationship Specialty Start Date End Date Flor Zabala NP [address] [facility] [address] [place] [address] PCP - General FAMILY PRACTICE 01/05/16 09/24/22 Jimmy Raphael PA [address] [facility]. [address] [place] [address] PCP - General PHYSICIAN SCIENCE EDUCATION PROFESSOR 09/25/22 Flora Ames MD [facility]. [address] [place], [place] [address] Julio C University Archivist CARDIOVASCULAR DISEASE 05/02/17 documented as of this encounter
--- OUTSIDE RECORDS SUMMARY | 2024-09-11 13:14 | XMS_ITS | Clinical Summary ---
Author Organization [facility] Address [address] [facility] [place] [address] Phone Care Team Providers Care Burn Crew Member Name Role Phone Kassidy Miller MD Primary Care Provider [phone] Allergies Active Allergy Reactions Criticality Noted Date Comments Amoxicillin-Pot Clavulanate Hives High 07/11/20 11 Cefixime Hives High 05/04/2017 Erythromycin Hives High 05/04/2017 Penicillins Hives High 05/04/2017 Medications ARIPiprazole (ABILIFY) 20 mg tablet TK 1 T PO D 0 8 Active buPROPion HCl (WELLBUTRIN XL) 150 mg Extended Release 24 hour tablet Take 150 mg by mouth. 7 Active LORazepam (ATIVAN) 0.5 mg tablet Take 0.5 mg by mouth. 7 Active metoprolol succinate (TOPROL XL) 100 mg Extended Release 24 hour tablet 11 8 Active nystatin (MYCOSTATIN) 100,000 unit/gram Cream JOELLE EXT TO THE CHEST BID FOR 10 DAYS 1 8 Active etonogestrel (NEXPLANON SDRM) by Subdermal route. Active metoprolol succinate (TOPROL XL) 25 mg Extended Release 24 hour tablet Take 1 Tablet (25 mg) by mouth daily Take in addition to 100 mg dose for total dose of 125 mg. 30 Tablet 3 8 Active Active Problems Problem Noted Date Diagnosed Date Subaortic membrane 06/13/2018 PCOS (polycystic ovarian syndrome) 06/12/2018 Anxiety 06/12/2018 Overview (06/12/2018): Well controlled Family History Medical History Relation Name Comments Diabetes Father Joel High Cholesterol Mother Hilary Hypertension Mother Hilary Relation Name Status Comments Father Joel Alive Mother Hilary Alive Sister Alive Social History Tobacco Use Types Packs/Day Years Used Date Smoking Tobacco: Never Smokeless Tobacco: Never Alcohol Use Standard Drinks/Week Comments No 0 (1 standard drink = 0.6 oz pur e alcohol) Comments No Sex and Gender Information Value Date Recorded Sex Assigned at Not on file Legal Sex Female 4:42 PM CDT Gender Identity Not on file Sexual Orientation Not on file Last Filed Vital Signs Vital Sign Reading Time Taken Comments Blood Pressure 131/75 06/17/2018 6:45 PM LOCOMOTIVE LUBRICATING SYSTEMS CLERK Pulse 77 06/17/2018 6:45 PM LOCOMOTIVE LUBRICATING SYSTEMS CLERK Temperature 36.7 C (98.1 F) 06/17/2018 2:07 PM LOCOMOTIVE LUBRICATING SYSTEMS CLERK Respiratory Rate 18 06/17/2018 2:07 PM LOCOMOTIVE LUBRICATING SYSTEMS CLERK Oxygen Saturation 99% 06/17/2018 6:45 PM LOCOMOTIVE LUBRICATING SYSTEMS CLERK Inhaled Oxygen Concentration - - Weight 82.6 kg (182 lb) 06/17/2018 2:07 PM LOCOMOTIVE LUBRICATING SYSTEMS CLERK Height 158.8 cm (5' 2.5 ) 06/17/2018 2:07 PM LOCOMOTIVE LUBRICATING SYSTEMS CLERK Body Mass Index 32.76 06/17/2018 2:07 PM LOCOMOTIVE LUBRICATING SYSTEMS CLERK Plan of Treatment Health Maintenance Due Date Last Done Comments DTAP/TDAP/TD VACCINES (1 - Tdap) 2012 HEPATITIS B VACCINES (1 of 3 - 19+ 3-dose series) 2012 CERVICAL CANCER SCREENING 12/21/2023 INFLUENZA VACCINE (#1) 2024 04/19/2018 HPV VACCINES Aged Out No longer eligi ble based on patient's age to complete this topic Insurance Care Teams Burn Crew Member Relationship Specialty Start Date End Date Kassidy Miller MD [address] [place] [phone] PCP - General Genetics 05/22/18
--- OUTSIDE RECORDS SUMMARY | 2024-09-11 13:14 | XMS_ITS | Encounter Summary ---
Author Organization [facility] Address [address] [place] [address] Care Team Providers Care Dough Raiser Name Role Phone Angie Velazquez MD Unavailable [phone] Stephanie Anderson TOOL AND DIE TECHNICIAN Unavailable [phone] Unknown, Notinfile Primary Care Provider Unavail able Reason for Visit * Reason Onset Date Comments Scheduling Appointments 06/02/2024 Schedule patient for Imaging Lumbar/Sacral Facet Medial Branch Block Bilateral ([id number]) Encounter Details Date Type Department Care Team (Late st Contact Info) Description 06/02/2024 Telephone [facility] at [facility] [address] [address], [address] [place] [id number] Kiara Pollock MD [address] [place] [address] Scheduling Appointments (Schedule patient for Imaging Lumbar/Sacral Facet Medial Branch Block Bilateral ([id number]) ) Social History Tobacco Use Types Packs/Day Years Used Date Smoking Tobacco: Never Smokeless Tobacco: Never Alcohol Use Standard Drinks/Week Comments No 0 (1 standard drink = 0.6 oz pur e alcohol) AUDIT-C Answer Date Recorded Frequency of Alcohol Consumption Not on file 05/28/2024 Q2: How many drinks containi ng alcohol do you have on a typical day when you are drinking? Patient does not drink Frequency of Binge Drinking Not on file 05/07 PHQ-2 Answer Date Recorded PHQ-2 Total Score [...] on file Legal Sex Female 1:47 AM PATTERN MARKER Gender Identity Not on file Sexual Orientation Not on file documented as of this encounter Plan of Treatment Not on file documented as of this encounter Goals Goal Patient Goal Type Associated Problems Recent Progress Patient-Stated? Author CCM Chronic Pain Care Plan Chronic Care Management No Amparo Talley RN Note: Problem: Chronic Pain Goals: 1. Minimize further functional decline 2. Maximize quality of life 3. Control pain Strategies: - Activity/exercise program recommendation - Conservative stepwise pain medicine strategy with multi-disciplinary approach - Recommend healthy lifestyle strategies and compensatory methods as needed Reduce the likelihood of falling Lifestyle No Amparo Talley RN Note: Below are four things you [...] programs, or options for improving home safety. documented as of this encounter Visit Diagnoses Not on filedocumented in this encounter Care Teams Dough Raiser Relationship Specialty Start Date End Date Unknown, Notinfile PCP - General 04/29/24 Angie Velazquez MD Referring Physician Cardiology 07/25/18 Stephanie Anderson, TOOL AND DIE TECHNICIAN [address] [place] [address] Nurse Practitioner Psychiatry 03/28/22 documented as of this encounter
--- OUTSIDE RECORDS SUMMARY | 2024-09-11 13:14 | XMS_ITS | Referral Summary ---
Author Organization [facility] Address [address] [place] [address] Care Team Providers Care Automatic Machines Supervisor Name Role Phone Angie Velazquez MD Unavailable Stephanie Anderson CLEANING MATRON Unavailable [phone] Unknown, Notinfile Primary Care Provider Unavail able Encounters Date Type Department Care Team Description 09/01/2024 7:34 AM ASSIGNMENT MANAGER - 09/01/2024 11:59 PM ASSIGNMENT MANAGER Hospital Encounter [facility] at [address] [place] [address] Kiara Pollock MD Spondylosis of lumbar region without myelopathy or radiculopathy Discharge Disposition: Discharge to home or self care 08/29/2024 Telephone [facility] [address] [place] [address] Kiara Pollock MD pre sedation call 07/10/2024 Orders Only [facility] at [address] [place] [address] Kiara Pollock MD Spondylosis of lumbar region without myelopathy or radiculopathy (Primary Dx) 07/08/2024 Telephone [facility] at [facility] [address] [place] [address] [address] [place] [address] Kiara Pollock MD POST LMBB #2 07/08/2024 2:43 PM ASSIGNMENT MANAGER - 07/08/2024 11:59 PM ASSIGNMENT MANAGER Hospital Encounter [facility] at [facility] [address] [facility] [address] [place] [id number] Kiara Pollock MD Spondylosis of lumbar region without myelopathy or radiculopathy Discharge Disposition: Discharge to home or self care from Last 3 Months Allergies Active Allergy Reactions Criticality Noted Date [...] history of OCD and Bipolar disorder on [place] and Congenital heart disease on propranolol who [...] Yuli Barker MD Department of Pediatric Neurology, [facility] Division of Movement Disorders Lumbar back [...] about this information Depression 01/23/2018 Palpitations 01/23/2018 Immunizations Name Administration Dates Next Due DTaP, Unspecified 12/25/1997, 5,07/06/1994,04/06/1994, 02/03/1994 HPV, Quadrivalent 06/01/2010 HPV9 11/12/2015,05/07/2015 Hep A, Pediatric 03/19/2009,06/11/2008 Hep B, Adolescent or Pediatric 12/04/1997,1993,04/06/1994,02/03/1994 HiB 12/25/1997,07/06/1994,04/06/1994 ,02/03/1994 Influenza, Unspecified 05/02/2022(Deferr ed: Patient Refused),05/07/2015,06/01/2010 MMR 12/25/1997,07/06/1994 Meningococcal ACWY, Unspecified 06/11/2008 Polio, Unspecified 12/25/1997, 5,07/06/1994,04/06/1994, 02/03/1994 Tdap 11/10/2016,03/19/2009,06/11/2008 Varicella 08/22/2011,09/06/1997 Social History Tobacco Use Types Packs/Day Years [...] on file Legal Sex Female 1:47 AM ASSIGNMENT MANAGER Gender Identity Not on file Sexual Orientation Not on file Last Filed Vital Signs Vital Sign Reading Time Taken Comments Blood Pressure 110/57 09/01/2024 9:24 AM ASSIGNMENT MANAGER Pulse 69 09/01/2024 9:24 AM ASSIGNMENT MANAGER Temperature 36 C (96.8 F) 09/01/2024 7:43 AM ASSIGNMENT MANAGER Respiratory Rate 15 09/01/2024 9:24 AM ASSIGNMENT MANAGER Oxygen Saturation 98% 09/01/2024 9:24 AM ASSIGNMENT MANAGER Inhaled Oxygen Concentration - - Weight 99.8 kg (220 lb) 09/01/2024 7:43 AM ASSIGNMENT MANAGER Height 157.5 cm (5' 2 ) 09/01/2024 7:43 AM ASSIGNMENT MANAGER Body Mass Index 40.24 09/01/2024 7:43 AM ASSIGNMENT MANAGER Plan of Treatment Not on file Goals Goal Patient Goal Type Associated Problems Recent Progress Patient-Stated? Author CCM Chronic Pain Care Plan Chronic Care Management No Amparo Talley, MARY Note: Problem: Chronic Pain Goals: 1. Minimize further functional decline 2. Maximize quality of life 3. Control pain Strategies: - Activity/exercise program recommendation - Conservative stepwise pain medicine strategy with multi-disciplinary approach - Recommend healthy lifestyle strategies and compensatory methods as needed Reduce the likelihood of falling Lifestyle No Amparo Talley, MARY Note: Below are four things you can [...] stairs Contact your local community or senior melrude for information on exercise, fall prevention programs, or options for improving home safety. Procedures Procedure Name Priority Date/Time Associated Diagnosis Comments PAIN MGMT IMAGING LUMBAR/SACRAL ABLATION BILATERAL Schedule Routine, Read Routine (OP Routine) 09/01/2024 9:02 AM ASSIGNMENT MANAGER Spondylosis of lumbar region without myelopathy or radiculopathy PAIN MGMT IMAGING LUMBAR/SACRAL FACET/ MEDIAL BRANCH BLOCK BILATERAL Schedule Routine, Read Routine (OP Routine) 07/08/2024 4:25 PM ASSIGNMENT MANAGER Spondylosis of lumbar region without myelopathy or radiculopathy from Last 3 Months Results * Imaging Lumbar/Sacral Medial Branch RFA Bilateral ([id number]) (09/01/2024 9:02 AM ASSIGNMENT MANAGER) Narrative RAD_PACS_[facility] - 09/01/2024 9:03 AM ASSIGNMENT MANAGER The images from this study are not interpreted by Radiology. Please refer to the physician's procedure / OR operative note. Kiara Pollock MD [facility] PA[place] MGMT PROCEDURES F inal Result Performing Organization Address [facility] de Phone Number RAD_PACS_[facility] * Imaging Lumbar/Sacral Facet Medial Branch Block Bilateral ([id number]) (07/08/2024 4:25 PM ASSIGNMENT MANAGER) Narrative RAD_PACS[facility] - 07/08/2024 4:25 PM ASSIGNMENT MANAGER The images from this study are not interpreted by Radiology. Please refer to the physician's procedure / OR operative note. Kiara Pollock MD [facility] PAIN MGMT PROCEDURES F inal Result Performing Organization Address [facility] de Phone Number RAD_PACS_[facility] from Last 3 Months Insurance [facility] OPEN ACCESS HE[facility]LINK OPEN ACCESS [facility] OPEN ACCESS HE[facility]LINK OPEN ACCESS [facility] OPEN ACCESS Advance Directives For more information, please contact: [phone] Documents on File Type Date Recorded Patient Ladle Liner Helper Expl anation ADVANCE DIRECTIVE 09/03/2018 5:49 AM ADVANCE DIRECTIVE 08/28/2018 12:47 PM * Full Code (Latest Code Status on File) Date Activated Date Inactivated Comments 09/03/2018 12:59 PM 09/06/2018 9:00 PM Care Teams Automatic Machines Supervisor Relationship Specialty Start Date End Date Unknown, Notinfile PCP - General 04/29/24 Angie Velazquez MD Referring Physician Cardiology 07/25/18 Stephanie Anderson, CLEANING MATRON [address] [place] [address] Nurse Practitioner Psychiatry 03/28/22
--- OUTSIDE RECORDS SUMMARY | 2024-09-11 13:14 | XMS_ITS | Encounter Summary ---
Author Organization [facility] Address [address] [facility] [address] [place] [address] Phone Care Team Providers Care Brushing Operator Name Role Phone Keanu Zabalay MAURO Primary Care Provider [phone] Angie Velazquez MD Unavailable [phone] Otto Potts MD, Leonardo Walden Primary Care Provide r [place] Stephanie Liz [facility] Unavailable [phone] Jimmy Raphael Primary Care Provider [phone] Unknown, Notinfile Primary Care Provider Unavail able Encounter Details Date Type Department Care Team (Latest Contact Info) Description 11/13/2018 Orders Only [facility] Scanning, Provider Social History Tobacco Use Types Packs/Day Years Used Date Smoking Tobacco: Never Smokeless Tobacco: Never Alcohol Use Standard Drinks/Week Comments No 0 (1 standard drink = 0.6 oz pur e alcohol) Comments Unknown Sex and Gender Information Value Date Recorded Sex Assigned at Not on file Legal Sex Female 1:47 AM SURGICAL SUPERVISOR Gender Identity Not on file Sexual Orientation Not on file documented as of this encounter Plan of Treatment Not on file documented as of this encounter Procedures Procedure Name Priority Date/Time Associated Diagnosis Comments CARDIOLOGY DOCUMENT SCAN 11/13/2018 documented in this encounter Results * SCAN - CARDIOLOGY (11/13/2018) Anatomical Region Laterality Modality Other us Provider Scanning CV CARDIAC SERVICES PROCEDURES Final Result documented in this encounter Visit [...] the result is from a facility outside [facility] . 07/23/2022 07/23/2022 08/02/2022 3:05 AM SURGICAL SUPERVISOR COVID: Recovered Comment:Added based on recent COVID infection. 08/02/2022 08/03/2022 10/31/2022 3:05 AM C DT documented as of this encounter Care Teams Brushing Operator Relationship Specialty Start Date End Date Flor Zabala NP PCP - General 02/13/17 03/27/22 Leonardo Menjivar Jr., MD [address] [place] [id number] PCP - General Internal Medicine 03/28/22 09/19/22 Jimmy Raphael PA [address] [place] [address] PCP - General Physician Regulatory Compliance Specialist 09/20/22 04/20/24 Unknown, Notinfile PCP - General 04/29/24 Angie Velazquez MD Referring Physician Cardiology 07/25/18 Stephanie Anderson, TONG CARRIER [address] [place] [address] Nurse Practitioner Psychiatry 03/28/22 documented as of this encounter
== END 2024-09-11 13:08 | disposition home or self-care (01) ==
PROVIDERS: PCP Family Medicine; Visit Provider Family Medicine
DX: N63.12 Unspecified lump in the right breast, upper inner quadrant (principal)
CPT/HCPCS: 76642; 77062; 77066; G0279

== ENCOUNTER 2024-10-06 08:41 | Outpatient (CLI) | payer OTHER, SELFPAY | END 2024-10-06 08:42 | disposition home or self-care (01) | PROVIDERS: PCP Family Medicine; Visit Provider Family Medicine | DX: N60.21 Fibroadenosis of right breast (principal) | CPT/HCPCS: 19083; 77065; 88305 ==

== ENCOUNTER 2025-02-12 14:29 | Emergency (ER) | payer OTHER, SELFPAY ==
--- NOTE | ~2025-02-12 | XR_ITS ---
EXAM/PROCEDURE: XR chest 2V - 02/12/2025 15:10 CDT HISTORY: 29 years old Female with palpitations TECHNIQUE: Two view(s) of the chest. COMPARISON: 06/08/2025 FINDINGS: LUNGS/ PLEURA: No focal consolidation. No appreciable pneumothorax or large pleural effusion. HEART/ MEDIASTINUM: Cardiomediastinal silhouette is unchanged. Findings of prior median sternotomy ar e noted. BONES: No acute osseous abnormality. OTHER: Visualized upper abdomen is unremarkable. IMPRESSION: No acute process. Reviewed, dictated and finalized at location A. IMPRESSION: No acute process.
[2025-02-12 14:31] VITALS: BP 143/71; PULSE 66; RESP 16; TEMP 36.6; O2SAT 100
--- NOTE | 2025-02-12 14:34 | ECG_ITS ---
Test Date: 2025-02-12 20:21:45 Measurements Intervals [place] Rate: 59 P: 28 DE: 190 QRS: -17 QRSD: 123 T: 27 QT: 427 QTc: 425 Interpretive Statements SINUS BRADYCARDIA MODERATE INTRAVENTRICULAR CONDUCTION DELAY [105+ ms QRS DURATION, 80+ ms Q/S IN V1/V2, NO Q AND 60+ ms R IN I/aVL/V5/V6] MODERATE VOLTAGE CRITERIA FOR LVH, CONSIDER NORMAL VARIANT [MEETS CRITERIA IN ONE OF: R(aVL), S(V1), R(V5), R(V5/V6)+S(V1)] Compared to ECG 04/21/2024 12:07:39 No significant changes Electronically Signed On 02-13-2025 07:09:07 CDT by Houston Sofia M.D.
--- OUTSIDE RECORDS SUMMARY | 2025-02-12 14:34 | XMS_ITS | Encounter Summary ---
Author Organization [facility] Address [address] [place] [address] Care Team Providers Care Bill Adjuster Name Role Phone Flor Zabala NP Primary Care Provider [phone] Flora Ames MD Unavailable [phone] Jimmy Raphael Primary Care Provider Unavail able Encounter Details Date Type Department Care Team (Late st Contact Info) Description 04/30/2017 Abstract [facility] AT [address] [address] Yumiko Fletcher, STAMP COLLECTOR Social History Tobacco Use Types Packs/Day Years Used Date Smoking Tobacco: Never Assessed Comments Unknown Sex and Gender Information Value Date Recorded Sex Assigned at Female 01/20/2025 7:46 AM CDT Legal Sex Female 5:10 PM CDT Gender [...] * VITAMIN D, 25 OH (12/30/2016) Pathologist [facility] VITAMIN D 25 HYDROXY S/P/B 80.5 12/30/2016 us Doc [facility] Abstract LABORATORY Final Result * CBC (OUTSIDE LAB) (12/29/2016) Pathologist [facility] WBC 4.3 HGB 13.2 HCT 39.5 PLT 265 RBC 4.95 12/29/2016 us Doc [facility] Abstract LAB-OUTSIDE/ABSTRACTED Final Result * (ABNORMAL) BASIC METABOLIC PANEL (12/29/2016) Pathologist [facility] SODIUM S/P/B 140 POTASSIUM S/P/B 4.6 CO2 22 CHLORIDE S/P/B 100 GLUCOSE 99 mg/dL CALCIUM S/P/B 9.7 BUN 15 CREATININE S/P/B 0.85 0.5 - 1.0 EGFR AFR. AMER. 112(A) <=90 EGFR NON-AFR. AMER. 97(A) <=90 12/29/2016 us Doc [facility] Abstract LABORATORY Final Result * THYROID STIM HORMONE, TSH (12/29/2016) Pathologist [facility] TSH 2.250 12/29/2016 us Doc [facility] Abstract LABORATORY Final Result * CBC (OUTSIDE LAB) (07/21/2016) Pathologist [facility] WBC 4.6 HGB 12.6 HCT 37.9 PLT [...] on filedocumented in this encounter Care Teams Bill Adjuster Relationship Specialty Start Date End Date Flor Zabala NP PCP - General FAMILY PRACTICE 01/05/16 09/24/22 Jimmy Raphael PA [address] [facility] [address] [place] [address] PCP - General PHYSICIAN CHANNEL CEMENTER 09/25/22 Flora Ames MD [address] [facility] [address] [place] [address] Julio C Polisher Implant CARDIOVASCULAR DISEASE 05/02/17 documented as of this encounter
--- OUTSIDE RECORDS SUMMARY | 2025-02-12 14:34 | XMS_ITS | Encounter Summary ---
Author Organization [facility] Address [address] [place] [address] Care Team Providers Care Aluminum Siding Installer Name Role Phone Flor Zabala NP Primary Care Provider [phone] Flora Ames MD Unavailable [phone] Jimmy Raphael Primary Care Provider Unavail able Encounter Details Date Type Department Care Team (Late st Contact Info) Description 06/21/[address] 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 No / Unsure 06/22/2021 2:59 PM MACHINE CAGE MAKER documented as of this encounter Plan of Treatment Not on file documented as of this encounter Visit Diagnoses Not on filedocumented in this encounter Care Teams Aluminum Siding Installer Relationship Specialty Start Date End Date Flor Zabala NP PCP - General FAMILY PRACTICE 01/05/16 09/24/22 Jimmy Raphael PA [facility]. [address] [place] [address] PCP - General PHYSICIAN LIVESTOCK INSPECTOR 09/25/22 Flora Ames MD [facility]. [address] [place] [address] Julio C Medical Records Field Technician CARDIOVASCULAR DISEASE 05/02/17 documented as of this encounter
--- OUTSIDE RECORDS SUMMARY | 2025-02-12 14:34 | XMS_ITS | Encounter Summary ---
Author Organization [facility] Address [address] [place] [address] Care Team Providers Care Flower Buncher Or Picker Name Role Phone Flor Zabala NP Primary Care Provider [phone] Flora Ames MD Unavailable [phone] Jimmy Raphael Primary Care Provider Unavail able Encounter Details Date Type Department Care Team (Late st Contact Info) Description 01/20/2019 Discharge [facility] [address] [place] [address] Roberta Vigil, VOCATIONAL ED INSTRUCTOR Social History Tobacco Use Types Packs/Day Years [...] 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 [address] [place] [address] PCP - General PHYSICIAN AIRCRAFT WORKER 09/25/22 Flora Ames MD [facility] [address] [place], [place] [id number] [employer] Clerk CARDIOVASCULAR DISEASE 05/02/17 documented as of this encounter
--- OUTSIDE RECORDS SUMMARY | 2025-02-12 14:34 | XMS_ITS | Patient Health Record ---
Author Organization [facility] [employer] Address [address] [facility] [address] [place] [address] Care Team Providers Care Oncology Social Worker Name Role Phone Alex VALENCIA, Roberta Primary Care Provider Unavailable Abby Adam Unavailable [phone] Oelg Pang Unavailable [phone] Alfonzo Olea Unavailable [phone] Allergies Allergen (clinical drug ingredient) Drug/Non Drug Allergy documented on EMR Reaction Allergy Type Onset Date Status Augmentin Unknown Drug Allergy Active Suprax Unknown Drug Allergy Active amoxicillin Amoxicillin Unknown Drug Allergy Act leandra erythromycin Erythromycin Unknown Drug Allergy A ctive Results Component Value Reference Range Notes VALPROIC ACID (916) Reviewed date:09/29/2024 04:18:19 PM Interpretation: Performing Lab:[facility]-[id number] Pam [id number] Homar Scott MD Notes/Report: VALPROIC ACID 33.6 50.0-100.0 mg/L LITHIUM (613) Reviewed date:09/29/2024 04:28:47 PM Interpretation: Performing Lab:[id number] Pam [id number] Homar Scott MD Notes/Report: LITHIUM <0.3 0.6-1.2 mmol/L Test Reviewed date:02/22/2024 04:23:53 PM Interpretation: Performing Lab: Notes/Report: Test urine Negative 0 - 0 UDT Reviewed date:02/22/2024 04:23:53 PM Interpretation: Performing Lab: Notes/Report: THC N 0 - 50 ng/ml Cocaine N 0 - 300 ng/ml Amphetamine N 0 - 1000 ng/ml Buprenorphine (BUP) N 0 - 10 ng/ml Secobarbital (Bar) N 0 - 300 ng/ml Oxazepam (BZO) N 0 - 300 ng/ml 7-vwizyesvjb-1,0-dstjdqpp-9, 3-diphenylpyrrolidine (EDDP) N 0 - 300 ng/ml Methamphetamine (MET) N 0 - 1000 ng/ml Methylenedioxymethamphetamine (MDMA) N 0 - 500 ng/ml Morphine (MOP 300/GZO1905) N 0 - 300 ng/ml Methadone (MTD) N 0 - 300 ng/ml Phencyclidine (PCP) N 0 - 25 ng/ml Nortriptyline (TCA) N 0 - 1000 ng/ml Oxycodone N 0 - 300 ng/ml x N 0 - 300 ng/ml Reason For Referral No Information Medications Medication SIG (Take, Route, Frequency, Duration) Notes Start Date End Date Status [place] Carbonate 150 MG TAKE 1 CAPSULE BY MOUTH TWICE DAILY Oral Twice a day; Duration: 30 days Active hydrOXYzine HCl 10 MG 1 tablet Orally three times a day; Duration: 30 days d/c 25 mg dose Active Melatonin 3 MG 1 tablet at bedtime as needed Orally bedtime; Duration: 90 days Active guanFACINE HCl 1 MG 1 tablet Orally Once a day; Duration: 30 days d/c 2 mg dose Active Biotin 70781 MCG 1 tablet Orally once a day 05/15/2024 Not-Taking fluvoxaMINE Maleate 100 MG 1 tablet at bedtime Orally Once a day; Duration: 30 days Active Estarylla 0.25-35 MG-MCG 1 tablet Orally Once a day Active Paliperidone ER 3 MG 1 tablet in the morning Orally Once a day; Duration: 30 days Active Propranolol HCl ER 160 MG 1 capsule Orally Once a day Active Divalproex Sodium ER 500 MG TAKE 1 TABLET BY MOUTH TWICE DAILY Oral twice a day; Duration: 30 days Active Estarylla 0.25-35 MG-MCG TAKE 1 TABLET BY MOUTH DAILY Oral; Duration: 28 Days Active Social History Tobacco Use: Social History Observation Description Date Details (start date - stop date) Never Smoker NA - NA Sex Assigned At : Social History Observation Description Sex Assigned At Female Household Question Answer Notes Marital status: Number of adults in household: 4 l maty in parents basement Number of children in household: 0 Level of education: not finished college MA 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 Yes with Men only Prevention strategies discussed: Other Tobacco Control (Standard) Question Answer Notes Tobacco use: Nonsmoker Additional Findings: Tobacco non-user Current no nsmoker AUDIT-C (Standard) Question Answer Notes Did you have a drink containing alcohol in the p ast year? No Problems Problem Type SNOMED Code ICD Code Onset Dates Problem Status W/U Status Risk Notes Problem Severe depressed bipolar I disorder without psychotic features (36214144) Bipolar disorder, current episode depressed, severe, without psychotic features (F31.4) Active confirmed Problem Primary insomnia (0726816) Primary insomnia (F51.01) Active confirmed Problem Obsessive-compuls leandra disorder (994855754) Mixed obsessional thoughts and acts (F42.2) Active confirmed Problem Depression Screening (177043993) Encounter for screening for depression (Z13.31) Active confirmed Problem Generalized anxiety disorder (54504701) FAITH (generalized anxiety disorder) (F41.1) Active confirmed Problem Attention deficit hyperactivity disorder (277842256) ADHD (attention deficit hyperactivity disorder), combined type (F90.2) Active confirmed Problem Insomnia disorder related to another mental disorder (75106884) Insomnia related to another mental disorder (F51.05) Active confirmed Problem Bipolar disorder (35838000) Bipolar disorder with depression (F31.9) Active confirmed Problem Bipolar disorder (83088422) Bipolar depression (F31.9) Active confirmed Problem Mild mixed bipolar I disorder (83286717) Mild mixed bipolar I disorder (F31.61) Active confirmed Problem Essential hypertension (88263540) Hypertension, unspecified type (401.9) Active confirmed Vital Signs Heart Rate 65 /min 11/13/2024 Temperature 97.8 degrees Fahrenheit 05/05/2024 Height-cm 158.75 cm 11/13/2024 Blood pressure diastolic 83 mm Hg 11/13/2024 Weight-kg 104.33 kg 11/13/2024 Height 62.5 in 11/13/2024 Blood pressure systolic 138 mm Hg 11/13/2024 Weight 230 lbs 11/13/2024 BMI 41.39 kg/m2 11/13/2024 Procedures Procedure Date Ordered Date Performed Result Body Sit e ADHD Testing 07/24/2024 N/A Encounters Encounter Location Date Provider Diagnosis [facility] [employer] [facility] [address] [address] 02/22/2024 Abby Thery Mild mixed bipolar I disorder F31.61 ; FAITH (generalized anxiety disorder) F41.1 ; Insomnia related to another mental disorder F51.05 and Mixed obsessional thoughts and acts F42.2 [facility] [address] [address] 02/29/2024 Abby Thery Mild mixed bipolar I disorder F31.61 ; FAITH (generalized anxiety disorder) F41.1 ; Primary insomnia F51.01 and Mixed obsessional thoughts and acts F42.2 [facility] [address] [address] 03/13/2024 Abby Thery Mild mixed bipolar I disorder F31.61 ; FAITH (generalized anxiety disorder) F41.1 ; Primary insomnia F51.01 and Mixed obsessional thoughts and acts F42.2 [facility] [employer] [facility], [facility] [address] [address] 03/19/2024 Alfonzo Clubb Mild mixed bipolar I disorder F31.61 ; FAITH (generalized anxiety disorder) F41.1 ; Primary insomnia F51.01 and Mixed obsessional thoughts and acts F42.2 [facility] [address] [address] 04/01/2024 Abby Thery Mild mixed bipolar I disorder F31.61 ; FAITH (generalized anxiety disorder) F41.1 ; Primary insomnia F51.01 and Mixed obsessional thoughts and acts F42.2 [facility] [employer] [facility] [address] [address] 04/10/2024 Abby Thery Mild mixed bipolar I disorder F31.61 ; FAITH (generalized anxiety disorder) F41.1 ; Primary insomnia F51.01 and Mixed obsessional thoughts and acts F42.2 [facility] [employer] [facility] [address] [place] [address] 04/24/2024 Abby Thery FAITH (generalized anxiety disorder) F41.1 ; Bipolar depression F31.9 ; Primary insomnia F51.01 and Mixed obsessional thoughts and acts F42.2 [facility] [address] [place] [address] 05/05/2024 Alfonzo Clubb Mild mixed bipolar I disorder F31.61 ; FAITH (generalized anxiety disorder) F41.1 ; Primary insomnia F51.01 and Mixed obsessional thoughts and acts F42.2 [facility] [address] [place] [address] 05/06/2024 Abby Thery Mild mixed bipolar I disorder F31.61 ; FAITH (generalized anxiety disorder) F41.1 ; Primary insomnia F51.01 and Mixed obsessional thoughts and acts F42.2 [facility] [address] [place] [address] 05/15/2024 Abby Thery FAITH (generalized anxiety disorder) F41.1 ; Bipolar disorder, current episode depressed, severe, without psychotic features F31.4 ; Primary insomnia F51.01 ; Mixed obsessional thoughts and acts F42.2 and Hypertension, unspecified type 401.9 [facility] [address] [place] [address] 06/03/2024 Abby Thery FAITH (generalized anxiety disorder) F41.1 ; Bipolar disorder with depression F31.9 ; Primary insomnia F51.01 and Mixed obsessional thoughts and acts F42.2 [facility] [address] [place] [address] 06/17/2024 Abby Thery FAITH (generalized anxiety disorder) F41.1 ; Primary insomnia F51.01 ; Bipolar disorder with depression F31.9 and Mixed obsessional thoughts and acts F42.2 [facility] [address] [place] [address] 07/17/2024 Abby Thery FAITH (generalized anxiety disorder) F41.1 ; Primary insomnia F51.01 ; Mixed obsessional thoughts and acts F42.2 ; Bipolar disorder with depression F31.9 and ADHD (attention deficit hyperactivity disorder), combined type F90.2 [facility] [address] [place] [address] 07/24/2024 Oleg Pang ADHD (attention deficit hyperactivity disorder), combined type F90.2 [facility] [employer] [facility] [address] [place] [address] 08/25/2024 Abby Thery FAITH (generalized anxiety disorder) F41.1 ; Primary insomnia F51.01 ; Mixed obsessional thoughts and acts F42.2 ; Bipolar disorder with depression F31.9 and ADHD (attention deficit hyperactivity disorder), combined type F90.2 [facility] [address] [place] [address] 09/15/2024 Abby Thery FAITH (generalized anxiety disorder) F41.1 ; Primary insomnia F51.01 ; Mixed obsessional thoughts and acts F42.2 ; Bipolar disorder with depression F31.9 and ADHD (attention deficit hyperactivity disorder), combined type F90.2 [facility] [employer] [facility] [address] [place] [address] 09/17/2024 Alfonzo Clubb Bipolar depression F31.9 ; FAITH (generalized anxiety disorder) F41.1 ; Primary insomnia F51.01 ; Mixed obsessional thoughts and acts F42.2 and ADHD (attention deficit hyperactivity disorder), combined type F90.2 [facility] [employer] [facility] [address] [place] [address] 10/06/2024 Abby Thery Bipolar depression F31.9 ; FAITH (generalized anxiety disorder) F41.1 ; Primary insomnia F51.01 ; Mixed obsessional thoughts and acts F42.2 ; ADHD (attention deficit hyperactivity disorder), combined type F90.2 and Bipolar disorder with depression F31.9 [facility] [address] [place] [address] 11/13/2024 Abby Thery Bipolar depression F31.9 ; FAITH (generalized anxiety disorder) F41.1 ; Primary insomnia F51.01 ; Mixed obsessional thoughts and acts F42.2 ; ADHD (attention deficit hyperactivity disorder), combined type F90.2 ; Bipolar disorder with depression F31.9 and Encounter for screening for depression Z13.31 [facility] [employer] [facility] [address] [place] [address] 01/30/2025 Abby Thery FAITH (generalized anxiety disorder) F41.1 ; Primary insomnia F51.01 ; Mixed obsessional thoughts and acts F42.2 ; ADHD (attention deficit hyperactivity disorder), combined type F90.2 ; Encounter for screening for depression Z13.31 ; Bipolar disorder with depression F31.9 and Negative depression screening Z13.31 [facility], [facility] [address] [place] [address] 02/28/2024 Abby Adam Mild mixed bipolar I disorder F31.61 [facility], [facility] [address] [place] [address] 03/07/2024 Abby Adam [facility], [facility] [address] [place] [address] 05/15/2024 Abby Therrod [facility], [facility] [address] [place] [address] 06/17/2024 Abby Therrod [facility], [facility] [address] [place] [address] 09/17/2024 Abby Adam [facility], [facility] [address] [place] [address] 02/25/2024 Abbyshalini Adam [facility], [facility] [address] [place] [address] 03/17/2024 Abby Therrod [facility], [facility] [address] [place] [address] 05/07/2024 Abby Therrod [facility], [facility] [address] [place] [address] 05/12/2024 Abby Therrod [facility], [facility] [address] [place] [address] 05/14/2024 Abby Therrod [facility], [facility] [address] [place] [address] 06/09/2024 Abby Therrod [facility], [facility] [address] [place] [address] 06/09/2024 Abby Therrod [facility], [facility] [address] [place] [address] 06/27/2024 Abby Therrod [facility], [facility] [address] [place] [address] 08/02/2024 Abby Thery [facility], [facility] [address] [facility] [address] [place] [address] 08/28/2024 Abby Thery [facility], [facility] [address] [facility] [address] [place] [address] 09/03/2024 Abby Therrod Bipolar disorder wit h depression F31.9 [facility] [address] [address] 09/17/2024 Abby Therrod [facility], [facility] [address] [address] 10/14/2024 Abby Thery [facility], [facility] [address] [address] 10/14/2024 Abby Therrod [facility], [facility] [address] [address] 10/14/2024 Abby Therrod [facility], [facility] [address] [address] 12/12/2024 Abby Adam Assessments Encounter Date Diagnosis (ICD Code) Assessment Notes Treatment Notes Treatment Clinical Notes Section Notes 05/05/2024 Mild mixed bipolar I disorder (ICD-10 - F31.61) 1. Anxiety - Patient reports 7/10 anxiety level with intrusive thoughts. - Medications don't seem effective. - Plan: a. increase aripiprazole to 30mg. b. Decrease fluvoxamine to 50mg. c. Monitor medication response. d. Encourage suicide hotline (958) use if needed. e. advised when to seek emergency services. 2. Bipolar Disorder - Transitioning from lithium to Depakote for manic depression. - No changes noticed with adjustment. - Plan: a. Continue Depakote 500mg BID and lithium 150mg BID until therapeutic Depakote level. b. Follow up on to assess progress. 3. Insomnia - Reports 9-10 hours sleep with 2am awakenings. Trazodone not helping. - Plan: a. Discontinue trazodone. b. Continue melatonin 30min before bed. c. Add melatonin at 2am if awake. d. Monitor sleep quality. 4. Suicidal Ideation - Reports passive suicidal thoughts 4x/day. - Denies plan/intent. - Plan: a. Close monitoring. b. Encourage 988 hotline use if needed. c. Follow up on for medication effect. e. advised to go to the emergency room if thoughts get worse or unmanageable. 5. Increased Appetite - Reports constant hunger. - Plan: a. Monitor appetite/weight. b. Discuss healthy eating habits. 6. Headache - Reports headaches, not severe. - Plan: a. Monitor frequency/severity. b. Consider medication side effects. c. Recommend OTC relief as needed. 7. Medication Refill - Fluvoxamine refill needed, 3 pills left. - increase Aripiprazole to 30 mg HS. - Plan: Send refill to [facility] 8. Follow-up - Appointment with [facility] on . - Plan: Continue monitoring progress and medication response. 05/15/2024 FAITH (generalized anxiety disorder) (ICD-10 - F41.1) Learning About Generalized Anxiety Disorder material was published, Generalized Anxiety Disorder: Care Instructions material was published, Learning About Anxiety Disorders material was published Learning About Generalized Anxiety Disorder material was published, Generalized Anxiety Disorder: Care Instructions material was published, Learning About Anxiety Disorders material was published 1. Anxiety -a. Patient reports anxiety level with intrusive thoughts.- therapy b. discuss and educated on Vistaril 10 mg three tmes a day PRN for anxiety and may take 1/2 dose (5 mg) in day if make tired - therapy continue - Plan: a. b. fluvoxamine to 100mg. - anxiety and OCD c. Monitor medication response. d. Encourage suicide hotline (988) use if needed. e. advised when to seek emergency services. 2. Bipolar Disorder - lithium and Depakote for manic and depression - reported tolerating well and helping mood. - No changes - Plan: a. Continue Depakote 500mg BID and lithium 150mg BID - educated on labs for [place] and Depakote level. b. Follow up [facility] and therapy scheduled C. Abilify 30 mg at bedtime- patient reported has not picked up yet - prescribed 05/05/24 from [facility] walk in clinic planned Tubal 05/29/24 3. Insomnia - Reports 9-10 hours - Plan: a.. sleep hygiene b. Continue melatonin 30min before bed. c. melatonin 3 mg OTC d. Monitor sleep quality. Trazodone 50 mg PRN 4. Suicidal Ideation- stable - Reports no passive suicidal thoughts - Denies plan/intent. - Plan: a. Close monitoring. b. Encourage 988 hotline use if needed. c. Follow up [facility] and seeing therapist e. advised to go to the emergency room if thoughts get worse or unmanageable. 5. OCD- increase thoughts and behaviors on 50 mg dose A. increase fluvoxamine to 100mg. 6. Appetite normal now - Reports constant hunger. - Plan: a. Monitor appetite/weight. b. Discuss healthy eating habits. c. heart healthy diet and excise 7. Headache - Reports headaches, improved - Plan: see PCP patient will schedule appt and discuss HTN a. Monitor frequency/severity. b. Consider medication side effects. c. Recommend OTC relief as needed. d. sleep hygiene education 8. Medication Refill - Plan: Send refill to [facility]. Recommend decrease/stop cannabis use as it can negatively impact mood, motivation, anxiety, sleep, focus/concentration /memory (vigilance, elasticity, processing and attention); can also contribute to development of psychosis. Cannabis/marijuana information: http_s://shaheed.nih.g ov/publications/janice gfacts/cannabis-mar ijuana http_s://www.Weight Wins/cannabis- vqp-yxvhqsiw-uhazkr avinash-adhd/ http_s://www.maribel.o rg/Ejtkj-Oudvef-Rar ness/Mental-Health- Conditions http_s://psychcentr Isotera.com/depression/t ox-xysvxthuv-brmzze hj-kx-xbmylrgmam#tr eatments http__s://www.nimh. nih.gov/health/topi cs/tqmvbz-vrikml-rh dications http__s://www.maribel. org/Zzofk-Npppdi-Ia lness/Treatments/Me bkvd-Hpnsio-Mxslqbv ions educated on all medications, benefits, side effects and risk, and educated on depression, anxiety, and ADHD, mood d/o and educated on compliance of medications, metabolic and movement d/o education appointment's, continue therapy discussion with patient about course of treatment and patient instructions. education on serotonin syndrome Discussed and educated pt regarding benzodiazepines are generally not intended for prolonged use and that use can cause tolerance, dependence, depression, and associated memory issues including dementias (this list is not exhaustive). Benzodiazepine use is generally not recommended concurrently with pain medications and/or other controlled substances educated on all medications, benefits, side effects and risk, and educated on depression, anxiety, and ADHD, mood d/o and educated on compliance of medications, metabolic and movement d/o education appointment is, continue therapy discussion with patient about course of treatment and patient instructions. education on serotonin syndrome SSRI/SNRI side effects discussed including but not limited to, gastric upset, nausea, vomiting, diarrhea and/or constipation, weight changes, sexual side effects including loss of libido, increased suicidal thoughts/behaviors in children and young adults, and serotonin syndrome. Second generation antipsychotics (SGAs) have metabolic syndrome issues with weight gain, increase in prolactin, increased waist circumference, increased lipids, and increased glucose. Thus routine monitoring of weight, metabolic labs, etc. is indicated. A general rank ordering of antipsychotics that have the greatest to the least risk of metabolic effects is olanzapine, quetiapine, risperidone, ziprasidone, and aripiprazole. However, weight gain can occur with all of these drugs and considerable variability exists among patients receiving the same drug regarding the risk of metabolic effects. Anti-psychotic agents not only increase the risk of metabolic disorder, they also increase the risk of CVA, akathisia, and movement disorders including EPS or tardive dyskinesia (more common with first generation antipsychotics) and more. 06/03/2024 FAITH (generalized anxiety disorder) (ICD-10 - F41.1) Learning About Generalized Anxiety Disorder material was published, Generalized Anxiety Disorder: Care Instructions material was published, Learning About Anxiety Disorders material was published Learning About Generalized Anxiety Disorder material was published, Generalized Anxiety Disorder: Care Instructions material was published, Learning About Anxiety Disorders material was published 1. Anxiety -a. Patient reports improved anxiety level with intrusive thoughts.- therapy b. discuss and educated on Vistaril 10 mg at bedtime for anxiety and may take 1/2 dose (5 mg) in day if make tired - therapy continue - Plan: continue rx no refills needed today insurance requires 30 days at a time with refills OCD A. fluvoxamine to 100mg. - anxiety and OCD- improved B. Monitor medication response. C. Encourage suicide hotline (555) use if needed. D. advised when to seek emergency services. 2. Bipolar Disorder - lithium and Depakote for manic and depression - reported tolerating well and helping mood. - No changes - Plan: a. Continue Depakote 500mg BID and lithium 150mg BID - educated on labs for [place] and Depakote level. b. Follow up [facility] and therapy scheduled C. Abilify 30 mg at bedtime- prescribed 05/05/24 from [facility] walk in clinic labs completed 05/28/24 Valporic acid 36, [place] 0.4, WBC, CMP, CARDIAC enzymes scanned into chart Tubal 05/30/24- recovery well 3. Insomnia - Reports sleep apnea no CPAP presently using average sleep 9-10 hours - Plan: a.. sleep hygiene b. Continue melatonin 30min before bed. c. melatonin 3 mg OTC d. Monitor sleep quality. Trazodone 50 mg PRN- reported not taking last month 4. Suicidal Ideation- stable - Reports no passive suicidal thoughts - Denies plan/intent. - Plan: a. Close monitoring. b. Encourage 988 hotline use if needed. c. Follow up [facility] and seeing therapist e. advised to go to the emergency room if thoughts get worse or unmanageable. 5. OCD- increase thoughts and behaviors on 50 mg dose A. fluvoxamine to 100mg. 6. Appetite normal now - Reports improved - Plan: a. Monitor appetite/weight. b. Discuss healthy eating habits. c. heart healthy diet and excise 7. Headache - Reports headaches, improved - Plan: see PCP patient will schedule appt and discuss HTN a. Monitor frequency/severity. b. Consider medication side effects. c. Recommend OTC relief as needed. d. sleep hygiene education 8. Medication Refill - Plan: Send refill to [facility] no refill needed today and need 30 days at a time r/t insurance Recommend decrease/stop cannabis use as it can negatively impact mood, motivation, anxiety, sleep, focus/concentration /memory (vigilance, elasticity, processing and attention); can also contribute to development of psychosis. Cannabis/marijuana information: http_s://shaheed.nih.g ov/publications/janice gfacts/cannabis-mar ijuana http_s://www.[employer] Rewards.Safecare/cannabis- gxp-nljnjled-zoopmi avinash-adhd/ http_s://www.maribel.o rg/Gugei-Nurhcx-Gvi ness/Mental-Health- Conditions http_s://psychcentr Isotera.com/depression/t fs-uevcttvsj-pevjuc qn-op-tnnozocwkh#tr eatments http__s://www.nimh. nih.gov/health/topi cs/dwqrgk-nlwkhq-os dications http__s://www.maribel. org/Ooxky-Kffccd-Hj lness/Treatments/Me iszg-Avxsof-Wflejvc ions educated on all medications, benefits, side effects and risk, and educated on depression, anxiety, and ADHD, mood d/o and educated on compliance of medications, metabolic and movement d/o education appointment's, continue therapy discussion with patient about course of treatment and patient instructions. education on serotonin syndrome Discussed and educated pt regarding benzodiazepines are generally not intended for prolonged use and that use can cause tolerance, dependence, depression, and associated memory issues including dementias (this list is not exhaustive). Benzodiazepine use is generally not recommended concurrently with pain medications and/or other controlled substances educated on all medications, benefits, side effects and risk, and educated on depression, anxiety, and ADHD, mood d/o and educated on compliance of medications, metabolic and movement d/o education appointment is, continue therapy discussion with patient about course of treatment and patient instructions. education on serotonin syndrome SSRI/SNRI side effects discussed including but not limited to, gastric upset, nausea, vomiting, diarrhea and/or constipation, weight changes, sexual side effects including loss of libido, increased suicidal thoughts/behaviors in children and young adults, and serotonin syndrome. Second generation antipsychotics (SGAs) have metabolic syndrome issues with weight gain, increase in prolactin, increased waist circumference, increased lipids, and increased glucose. Thus routine monitoring of weight, metabolic labs, etc. is indicated. A general rank ordering of antipsychotics that have the greatest to the least risk of metabolic effects is olanzapine, quetiapine, risperidone, ziprasidone, and aripiprazole. However, weight gain can occur with all of these drugs and considerable variability exists among patients receiving the same drug regarding the risk of metabolic effects. Anti-psychotic agents not only increase the risk of metabolic disorder, they also increase the risk of CVA, akathisia, and movement disorders including EPS or tardive dyskinesia (more common with first generation antipsychotics) and more. 06/03/2024 Bipolar disorder with depression (ICD-10 - F31.9) 1. Anxiety -a. Patient reports improved anxiety level with intrusive thoughts.- therapy b. discuss and educated on Vistaril 10 mg at bedtime for anxiety and may take 1/2 dose (5 mg) in day if make tired - therapy continue - Plan: continue rx no refills needed today insurance requires 30 days at a time with refills OCD A. fluvoxamine to 100mg. - anxiety and OCD- improved B. Monitor medication response. C. Encourage suicide hotline (988) use if needed. D. advised when to seek emergency services. 2. Bipolar Disorder - lithium and Depakote for manic and depression - reported tolerating well and helping mood. - No changes - Plan: a. Continue Depakote 500mg BID and lithium 150mg BID - educated on labs for [place] and Depakote level. b. Follow up [facility] and therapy scheduled C. Abilify 30 mg at bedtime- prescribed 05/05/24 from [facility] labs completed 05/28/24 Valporic acid 36, [place] 0.4, WBC, CMP, CARDIAC enzymes scanned into chart Tubal 05/30/24- recovery well 3. Insomnia - Reports sleep apnea no CPAP presently using average sleep 9-10 hours - Plan: a.. sleep hygiene b. Continue melatonin 30min before bed. c. melatonin 3 mg OTC d. Monitor sleep quality. Trazodone 50 mg PRN- reported not taking last month 4. Suicidal Ideation- stable - Reports no passive suicidal thoughts - Denies plan/intent. - Plan: a. Close monitoring. b. Encourage 988 hotline use if needed. c. Follow up [facility] and seeing therapist e. advised to go to the emergency room if thoughts get worse or unmanageable. 5. OCD- increase thoughts and behaviors on 50 mg dose A. fluvoxamine to 100mg. 6. Appetite normal now - Reports improved - Plan: a. Monitor appetite/weight. b. Discuss healthy eating habits. c. heart healthy diet and excise 7. Headache - Reports headaches, improved - Plan: see PCP patient will schedule appt and discuss HTN a. Monitor frequency/severity. b. Consider medication side effects. c. Recommend OTC relief as needed. d. sleep hygiene education 8. Medication Refill - Plan: Send refill to [facility] no refill needed today and need 30 days at a time r/t insurance Recommend decrease/stop cannabis use as it can negatively impact mood, motivation, anxiety, sleep, focus/concentration /memory (vigilance, elasticity, processing and attention); can also contribute to development of psychosis. Cannabis/marijuana information: http_s://shaheed.nih.g ov/publications/janice gfacts/cannabis-mar ijuana http_s://www.Weight Wins/cannabis- ije-kwuoszhi-iyfqug avinash-adhd/ http_s://www.maribel.o rg/Fjiaj-Itfqvu-Qpv ness/Mental-Health- Conditions http_s://psychFaction Skis.com/depression/t ej-hxdxiocod-reermr yg-tu-sadubizuzv#tr eatments http__s://www.nimh. nih.gov/health/topi cs/hrraio-ysiuva-bs dications http__s://www.maribel. org/Tksvd-Qgvqln-Ny lness/Treatments/Me xkja-Gtsgdt-Gzdoplj ions educated on all medications, benefits, side effects and risk, and educated on depression, anxiety, and ADHD, mood d/o and educated on compliance of medications, metabolic and movement d/o education appointment's, continue therapy discussion with patient about course of treatment and patient instructions. education on serotonin syndrome Discussed and educated pt regarding benzodiazepines are generally not intended for prolonged use and that use can cause tolerance, dependence, depression, and associated memory issues including dementias (this list is not exhaustive). Benzodiazepine use is generally not recommended concurrently with pain medications and/or other controlled substances educated on all medications, benefits, side effects and risk, and educated on depression, anxiety, and ADHD, mood d/o and educated on compliance of medications, metabolic and movement d/o education appointment is, continue therapy discussion with patient about course of treatment and patient instructions. education on serotonin syndrome SSRI/SNRI side effects discussed including but not limited to, gastric upset, nausea, vomiting, diarrhea and/or constipation, weight changes, sexual side effects including loss of libido, increased suicidal thoughts/behaviors in children and young adults, and serotonin syndrome. Second generation antipsychotics (SGAs) have metabolic syndrome issues with weight gain, increase in prolactin, increased waist circumference, increased lipids, and increased glucose. Thus routine monitoring of weight, metabolic labs, etc. is indicated. A general rank ordering of antipsychotics that have the greatest to the least risk of metabolic effects is olanzapine, quetiapine, risperidone, ziprasidone, and aripiprazole. However, weight gain can occur with all of these drugs and considerable variability exists among patients receiving the same drug regarding the risk of metabolic effects. Anti-psychotic agents not only increase the risk of metabolic disorder, they also increase the risk of CVA, akathisia, and movement disorders including EPS or tardive dyskinesia (more common with first generation antipsychotics) and more. 06/17/2024 FAITH (generalized anxiety disorder) (ICD-10 - F41.1) Learning About Generalized Anxiety Disorder material was published, Generalized Anxiety Disorder: Care Instructions material was published, Learning About Anxiety Disorders material was published Learning About Generalized Anxiety Disorder material was published, Generalized Anxiety Disorder: Care Instructions material was published, Learning About Anxiety Disorders material was published 1. Anxiety -a. Patient reports improved anxiety level with intrusive thoughts.- therapy b. discuss and educated on Vistaril 10 mg at bedtime for anxiety and may take 1/2 dose (5 mg) in day if make tired - therapy continue - Plan: continue rx no refills needed today insurance requires 30 days at a time with refills OCD A. fluvoxamine to 100mg. - anxiety and OCD- improved B. Monitor medication response. C. Encourage suicide hotline (009) use if needed. D. advised when to seek emergency services. 2. Bipolar Disorder educated on therapy and CBT/DBT. EDMR- will work on situational stressors and fears in therapy Educated on proper use light box and not to stay in basement in day and come upstairs in day and open curtains, and outside help depression - lithium and Depakote for manic and depression - reported tolerating well and helping mood. - No changes - Plan: a. Continue Depakote 500mg BID and lithium 150mg BID - educated on labs for [place] and Depakote level. b. Follow up [facility] and therapy scheduled- will make list of concerns for therapy and work on situational stressors, fears, and emotions in therapy C. Abilify 30 mg at bedtime- prescribed 05/05/24 from [facility] walk in [facility] labs completed 05/28/24 Valporic acid 36, [place] 0.4, WBC, CMP, CARDIAC enzymes scanned into chart Tubal 05/30/24- recovery well 3. Insomnia - Reports sleep apnea no CPAP presently using - Plan: a.. sleep hygiene b. Continue melatonin 30min before bed. c. melatonin 3 mg OTC d. Monitor sleep quality. Trazodone 50 mg PRN- reported not taking 4. Suicidal Ideation- stable - Reports no passive suicidal thoughts - Denies plan/intent. a. Close monitoring. b. Encourage 988/911 hotline use if needed. c. Follow up [facility] and seeing therapist e. advised to go to the emergency room if thoughts get worse or unmanageable. 5. OCD- thoughts and behaviors A. fluvoxamine to 100mg. 6. appetite - Reports varies a. Monitor appetite/weight. b. Discuss healthy eating habits. c. heart healthy diet and excise 7. Headache - Reports headaches same - Plan: see PCP patient will schedule appt and discuss HTN- new patient appt schedules and seen licensed nursing assistant with HTN and adjusting rx a. Monitor frequency/severity. b. Consider medication side effects. c. Recommend OTC relief as needed. d. sleep hygiene education 8. Medication Refill - Plan: Send refill to [facility] no refill needed today and need 30 days at a time r/t insurance [facility] discuss and ordered Recommend decrease/stop cannabis use as it can negatively impact mood, motivation, anxiety, sleep, focus/concentration /memory (vigilance, elasticity, processing and attention); can also contribute to development of psychosis. Cannabis/marijuana information: http_s://shaheed.nih.g ov/publications/janice gfacts/cannabis-mar ijuana http_s://www.Social Rewards.Safecare/cannabis- blk-htrwbuqh-hueqal avinash-adhd/ http_s://www.maribel.o rg/Eswpm-Lqfsao-Yfc ness/Mental-Health- Conditions http_s://psychcentr al.com/depression/t gs-qipfplqzq-zhwcsd ln-va-hclgwtggkb#tr eatments http__s://www.nimh. nih.gov/health/topi cs/xgpcyz-txppmf-um dications http__s://www.maribel. org/Fhwbr-Tdvyiz-Nm lness/Treatments/Me bvvj-Xgdwfj-Fvropbw ions educated on all medications, benefits, side effects and risk, and educated on depression, anxiety, and ADHD, mood d/o and educated on compliance of medications, metabolic and movement d/o education appointment's, continue therapy discussion with patient about course of treatment and patient instructions. education on serotonin syndrome Discussed and educated pt regarding benzodiazepines are generally not intended for prolonged use and that use can cause tolerance, dependence, depression, and associated memory issues including dementias (this list is not exhaustive). Benzodiazepine use is generally not recommended concurrently with pain medications and/or other controlled substances educated on all medications, benefits, side effects and risk, and educated on depression, anxiety, and ADHD, mood d/o and educated on compliance of medications, metabolic and movement d/o education appointment is, continue therapy discussion with patient about course of treatment and patient instructions. education on serotonin syndrome SSRI/SNRI side effects discussed including but not limited to, gastric upset, nausea, vomiting, diarrhea and/or constipation, weight changes, sexual side effects including loss of libido, increased suicidal thoughts/behaviors in children and young adults, and serotonin syndrome. Second generation antipsychotics (SGAs) have metabolic syndrome issues with weight gain, increase in prolactin, increased waist circumference, increased lipids, and increased glucose. Thus routine monitoring of weight, metabolic labs, etc. is indicated. A general rank ordering of antipsychotics that have the greatest to the least risk of metabolic effects is olanzapine, quetiapine, risperidone, ziprasidone, and aripiprazole. However, weight gain can occur with all of these drugs and considerable variability exists among patients receiving the same drug regarding the risk of metabolic effects. Anti-psychotic agents not only increase the risk of metabolic disorder, they also increase the risk of CVA, akathisia, and movement disorders including EPS or tardive dyskinesia (more common with first generation antipsychotics) and more. 07/17/2024 FAITH (generalized anxiety disorder) (ICD-10 - F41.1) Learning About Generalized Anxiety Disorder material was published, Generalized Anxiety Disorder: Care Instructions material was published, Learning About Anxiety Disorders material was published Learning About Generalized Anxiety Disorder material was published, Generalized Anxiety Disorder: Care Instructions material was published, Learning About Anxiety Disorders material was published 1. Anxiety -a. Patient reports improved anxiety level with intrusive thoughts.- therapy b. discuss and educated on Vistaril 10 mg at bedtime for anxiety and may take 1/2 dose (5 mg) in day if make tired - therapy continue - Plan: continue rx no refills needed today insurance requires 30 days at a time with refills OCD A. fluvoxamine to 100mg. - anxiety and OCD- improved B. Monitor medication response. C. Encourage suicide hotline (988) use if needed. D. advised when to seek emergency services. 2. Bipolar Disorder educated on therapy and CBT/DBT. ED- will work on situational stressors and fears in therapy Educated on proper use light box and not to stay in basement in day and come upstairs in day and open curtains, and outside help depression - lithium and Depakote for manic and depression - reported tolerating well and helping mood. - No changes - Plan: Continue Depakote 500 mg BID will decrease lithium 150 mg in am and monitor tremors in hands - plan to taper off [place] - educated on labs for [place] and Depakote level. . Follow up [facility] and therapy scheduled- will make list of concerns for therapy and work on situational stressors, fears, and emotions in therapy Abilify 30 mg at bedtime- prescribed 05/05/24 from [facility] walk in clinic- discuss may plan to decrease dose in furture - patient has had recent eduardo/hypomania and depression recently labs completed 05/28/24 Valporic acid 36, [place] 0.4, WBC, CMP, CARDIAC enzymes scanned into chart Gene sight reviewed and Abilify may need to be decrease in future - patient reported been working well Tubal 05/30/24- recovery well 3. Insomnia - Reports sleep apnea no CPAP presently using - Plan: a.. sleep hygiene b. Continue melatonin 30min before bed. c. melatonin 3 mg OTC d. Monitor sleep quality. Trazodone 50 mg PRN- reported not taking 4. Suicidal Ideation- stable - Reports no passive suicidal thoughts - Denies plan/intent. a. Close monitoring. b. Encourage 988/911 hotline use if needed. c. Follow up [facility] and seeing therapist e. advised to go to the emergency room if thoughts get worse or unmanageable. 5. OCD- thoughts and behaviors A. fluvoxamine to 100mg. 6. appetite - Reports varies a. Monitor appetite/weight. b. Discuss healthy eating habits. c. heart healthy diet and excise 7. Headache - Reports headaches same - Plan: see PCP patient will schedule appt and discuss HTN- new patient appt schedules and seen licensed nursing assistant with HTN and adjusting rx a. Monitor frequency/severity. b. Consider medication side effects. c. Recommend OTC relief as needed. d. sleep hygiene education no NSAIDS ADHD Comination hx since childhood and rx at childhood and adult LIDIA-2 TEST SCHEDULED - Plan: Send refill to [facility] need 30 days at a time r/t insurance [facility] Sight discuss Follow up [facility] and therapy scheduled- will make list of concerns for therapy and work on situational stressors, fears, and emotions in therapy Recommend decrease/stop cannabis use as it can negatively impact mood, motivation, anxiety, sleep, focus/concentration /memory (vigilance, elasticity, processing and attention); can also contribute to development of psychosis. Cannabis/marijuana information: http_s://shaheed.nih.g ov/publications/janice gfacts/cannabis-mar ijuana http_s://www.Weight Wins/cannabis- lsf-nwaqshnh-cgpnky avinash-adhd/ http_s://www.maribel.o rg/Xtgrm-Htgvic-Sjc ness/Mental-Health- Conditions http_s://psychcentr Isotera.com/depression/t ne-xktihsqpj-vpyflk fi-cs-meqgnftrhg#tr eatments http__s://www.nimh. nih.gov/health/topi cs/tvxhsi-ptgxke-mu dications http__s://www.maribel. org/Zywld-Vhffej-Az lness/Treatments/Me kabm-Sjyvfl-Fxamjvu ions educated on all medications, benefits, side effects and risk, and educated on depression, anxiety, and ADHD, mood d/o and educated on compliance of medications, metabolic and movement d/o education appointment's, continue therapy discussion with patient about course of treatment and patient instructions. education on serotonin syndrome Discussed and educated pt regarding benzodiazepines are generally not intended for prolonged use and that use can cause tolerance, dependence, depression, and associated memory issues including dementias (this list is not exhaustive). Benzodiazepine use is generally not recommended concurrently with pain medications and/or other controlled substances educated on all medications, benefits, side effects and risk, and educated on depression, anxiety, and ADHD, mood d/o and educated on compliance of medications, metabolic and movement d/o education appointment is, continue therapy discussion with patient about course of treatment and patient instructions. education on serotonin syndrome SSRI/SNRI side effects discussed including but not limited to, gastric upset, nausea, vomiting, diarrhea and/or constipation, weight changes, sexual side effects including loss of libido, increased suicidal thoughts/behaviors in children and young adults, and serotonin syndrome. Second generation antipsychotics (SGAs) have metabolic syndrome issues with weight gain, increase in prolactin, increased waist circumference, increased lipids, and increased glucose. Thus routine monitoring of weight, metabolic labs, etc. is indicated. A general rank ordering of antipsychotics that have the greatest to the least risk of metabolic effects is olanzapine, quetiapine, risperidone, ziprasidone, and aripiprazole. However, weight gain can occur with all of these drugs and considerable variability exists among patients receiving the same drug regarding the risk of metabolic effects. Anti-psychotic agents not only increase the risk of metabolic disorder, they also increase the risk of CVA, akathisia, and movement disorders including EPS or tardive dyskinesia (more common with first generation antipsychotics) and more. 07/24/2024 ADHD (attention deficit hyperactivity disorder), combined type (ICD-10 - F90.2) 08/25/2024 FAITH (generalized anxiety disorder) (ICD-10 - F41.1) Learning About Generalized Anxiety Disorder material was published, Generalized Anxiety Disorder: Care Instructions material was published, Learning About Anxiety Disorders material was published Learning About Generalized Anxiety Disorder material was published, Generalized Anxiety Disorder: Care Instructions material was published, Learning About Anxiety Disorders material was published, Learning About Generalized Anxiety Disorder material was published, Generalized Anxiety Disorder: Care Instructions material was published, Learning About Anxiety Disorders material was published, Learning About Transcranial Magnetic Stimulation (TMS) material was published 1. Anxiety -a. Patient reports improved anxiety level with intrusive thoughts.- therapy b. discuss and educated on Vistaril 10 mg at bedtime for anxiety and may take 1/2 dose (5 mg) in day if make tired - therapy continue - Plan: continue insurance requires 30 days at a time with refills OCD A. fluvoxamine to 100mg. - anxiety and OCD- improved B. Monitor medication response. C. Encourage suicide hotline (988) use if needed. D. advised when to seek emergency services. 2. Bipolar Disorder educated on therapy and CBT/DBT. EDMR- will work on situational stressors and fears in therapy Educated on proper use light box and not to stay in basement in day and come upstairs in day and open curtains, and outside help depression - lithium and Depakote for manic and depression - reported tolerating well and helping mood. Continue Depakote 500 mg BID Patient increased lithium 150 mg twice a day r/t eduardo s/s at once a day and improved and monitor tremors in hands - Discuss Gene sight and switch from Abilify to Invega for Bipolar to control symptoms - will decrease Abilify to 20 mg daily and add Invega 3 mg daily patient will be on 2 anti-psychotics at tthis time while tapering off Abilify to control s/s discuss and educated on Invega injections for near future plan to taper off [place] r/t tremors - educated on labs for [place] and Depakote level. . Follow up [facility] and therapy scheduled- will make list of concerns for therapy and work on situational stressors, fears, and emotions in therapy labs completed 05/28/24 Valporic acid 36, [place] 0.4, WBC, CMP, CARDIAC enzymes scanned into chart LABS SCHEDULED today PCP will add [place] and Depakote Gene sight reviewed and Abilify may need to be decrease in future - patient reported been working well Tubal 05/30/24- 3. Insomnia - Reports sleep apnea -no CPAP presently not using- plan on getting new CPAP - Plan: a.. sleep hygiene b. Continue melatonin 30min before bed. c. melatonin 3 mg OTC d. Monitor sleep quality. 4. Suicidal Ideation- stable - Reports no passive suicidal thoughts - Denies plan/intent. a. Close monitoring. b. Encourage 988/911 hotline use if needed. c. Follow up [facility] and seeing therapist e. advised to go to the emergency room if thoughts get worse or unmanageable. 5. OCD- thoughts and behaviors fluvoxamine to 100mg. 6.ADHD Comination hx since childhood and rx at childhood and adult LIDIA-AE 2 TEST Reviewed test results are congruent for ADHD combination discuss and educated on non-stimulates and stimualtes reviewed Gene sight - Vyvanse, Dextroamphetamine, and Adderall has no proven genetic markers Focalin and Concerta moderate gene- drug interaction and genotype may impact drug mechanism of action and result in moderate reduce efficacy Plan: Guanfacine use as directed discuss and educated and will add Guanfacine 1 mg daily in am Qelbree- Moderate gene interaction- serum levls may be too low and lower doses may be needed Straterra- significant gene and drug interaction- serum levels too high and lower dose may be needed, CYP2D6 indicate increase side effects, but also greater symptom improvement with those find tx toleratable, potential gene interaction ADHD stimulates education Discuss with patient risk of misuse, abuse, and addiction before prescribing stimulant medicines. 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 Educate patients and their families on these serious risks, proper storage of the medicine, and proper disposal of any unused medicine. Educated patient will monitor Throughout treatment, regularly assess and monitor them for signs and symptoms of nonmedical use, addiction, and potential diversion, which may be evidenced by more frequent renewal. requests than warranted by the prescribed dosage. Random [facility] prescription reviewed local pharmacy in [facility], no early refills on control substance educated on non-stimulate and stimulates - Plan: Send refill to [facility] need 30 days at a time r/t insurance Gene Sight discuss Follow up MIRELA and therapy scheduled- will make list of concerns for therapy and work on situational stressors, fears, and emotions in therapy educated on cannabis use as it can negatively impact mood, motivation, anxiety, sleep, focus/concentration /memory (vigilance, elasticity, processing and attention); can also contribute to development of psychosis. Cannabis/marijuana information: http_s://shaheed.nih.g ov/publications/janice gfacts/cannabis-mar ijuana http_s://www.[employer].Safecare/cannabis- ihg-lkbafezv-sgltlc avinash-adhd/ http_s://www.maribel.o rg/Buody-Zkwxke-Tkz ness/Mental-Health- Conditions http_s://psychcentr al.com/depression/t st-hpmbjmpsa-rhugfe an-yx-aprhgornuk#tr eatments http__s://www.nimh. nih.gov/health/topi cs/zkgmvu-okbgdp-lj dications http__s://www.maribel. org/Ftidz-Ylhqfq-Ku lness/Treatments/Me qbyx-Qoavms-Nsnmagu ions educated on all medications, benefits, side effects and risk, and educated on depression, anxiety, and ADHD, mood d/o and educated on compliance of medications, metabolic and movement d/o education appointment's, continue therapy discussion with patient about course of treatment and patient instructions. education on serotonin syndrome Discussed and educated pt regarding benzodiazepines are generally not intended for prolonged use and that use can cause tolerance, dependence, depression, and associated memory issues including dementias (this list is not exhaustive). Benzodiazepine use is generally not recommended concurrently with pain medications and/or other controlled substances educated on all medications, benefits, side effects and risk, and educated on depression, anxiety, and ADHD, mood d/o and educated on compliance of medications, metabolic and movement d/o education appointment is, continue therapy discussion with patient about course of treatment and patient instructions. education on serotonin syndrome SSRI/SNRI side effects discussed including but not limited to, gastric upset, nausea, vomiting, diarrhea and/or constipation, weight changes, sexual side effects including loss of libido, increased suicidal thoughts/behaviors in children and young adults, and serotonin syndrome. Second generation antipsychotics (SGAs) have metabolic syndrome issues with weight gain, increase in prolactin, increased waist circumference, increased lipids, and increased glucose. Thus routine monitoring of weight, metabolic labs, etc. is indicated. A general rank ordering of antipsychotics that have the greatest to the least risk of metabolic effects is olanzapine, quetiapine, risperidone, ziprasidone, and aripiprazole. However, weight gain can occur with all of these drugs and considerable variability exists among patients receiving the same drug regarding the risk of metabolic effects. Anti-psychotic agents not only increase the risk of metabolic disorder, they also increase the risk of CVA, akathisia, and movement disorders including EPS or tardive dyskinesia (more common with first generation antipsychotics) and more. 09/03/2024 Bipolar disorder with depression (ICD-10 - F31.9) 09/15/2024 FAITH (generalized anxiety disorder) (ICD-10 - F41.1) Learning About Generalized Anxiety Disorder material was published, Generalized Anxiety Disorder: Care Instructions material was published, Learning About Anxiety Disorders material was published Learning About Generalized Anxiety Disorder material was published, Generalized Anxiety Disorder: Care Instructions material was published, Learning About Anxiety Disorders material was published, Learning About Generalized Anxiety Disorder material was published, Generalized Anxiety Disorder: Care Instructions material was published, Learning About Anxiety Disorders material was published, Learning About Transcranial Magnetic Stimulation (TMS) material was published 1. Anxiety -a. Patient reports improved anxiety level with intrusive thoughts.- therapy b. discuss and educated on all rx Increase Vistaril 10 mg up to three times a day for anxiety - therapy continue - Plan: continue insurance requires 30 days at a time with refills OCD A. fluvoxamine to 100mg. - anxiety and OCD- improved B. Monitor medication response. C. Encourage suicide hotline (054) use if needed. D. advised when to seek emergency services. 2. Bipolar Disorder educated on therapy and CBT/DBT. EDMR- will work on situational stressors and fears in therapy Educated on proper use light box and not to stay in basement in day and come upstairs in day and open curtains, and outside help depression - lithium and Depakote for manic and depression - reported tolerating well and helping mood. Continue Depakote 500 mg BID lithium 150 mg twice a day hx r/t eduardo s/s at once a day and improved and monitor tremors in hands - Discuss Gene sight and Invega for Bipolar to control symptoms - Invega 3 mg daily contiue discuss and educated on Invega injections for near future- pateint agreed plan to taper off [place] r/t tremors - educated on labs for [place] and Depakote level.- patient reported will have done Sunday . Follow up MIRELA and therapy scheduled- will make list of concerns for therapy and work on situational stressors, fears, and emotions in therapy labs completed 05/28/24 Valporic acid 36, [place] 0.4, WBC, CMP, CARDIAC enzymes scanned into chart Gene sight reviewed and Abilify may need to be decrease in future - patient reported been working well Tubal 05/30/24- 3. Insomnia - Reports sleep apnea -no CPAP presently not using- plan on getting new CPAP PCP ordered - Plan: a.. sleep hygiene b. Continue melatonin 30min before bed. c. melatonin 3 mg OTC d. Monitor sleep quality. 4. Suicidal Ideation- stable - Reports no passive suicidal thoughts - Denies plan/intent. a. Close monitoring. b. Encourage 714/[id number] hotline use if needed. c. Follow up MIRELA and seeing therapist e. advised to go to the emergency room if thoughts get worse or unmanageable. 5. OCD- thoughts and behaviors fluvoxamine to 100mg. 6.ADHD Comination hx since childhood and rx at childhood and adult LIDIA-AE 2 TEST Reviewed test results are congruent for ADHD combination discuss and educated on non-stimulates and stimualtes reviewed Gene sight - Vyvanse, Dextroamphetamine, and Adderall has no proven genetic markers Focalin and Concerta moderate gene- drug interaction and genotype may impact drug mechanism of action and result in moderate reduce efficacy Plan: Guanfacine use as directed discuss and educated and will add Guanfacine 1 mg daily in am Qelbree- Moderate gene interaction- serum levls may be too low and lower doses may be needed Straterra- significant gene and drug interaction- serum levels too high and lower dose may be needed, CYP2D6 indicate increase side effects, but also greater symptom improvement with those find tx toleratable, potential gene interaction ADHD stimulates education Discuss with patient risk of misuse, abuse, and addiction before prescribing stimulant medicines. 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 Educate patients and their families on these serious risks, proper storage of the medicine, and proper disposal of any unused medicine. Educated patient will monitor Throughout treatment, regularly assess and monitor them for signs and symptoms of nonmedical use, addiction, and potential diversion, which may be evidenced by more frequent renewal. requests than warranted by the prescribed dosage. Random [facility] [place] prescription reviewed local pharmacy in [facility], no early refills on control substance educated on non-stimulate and stimulates - Plan: Send refill to [facility] need 30 days at a time r/t insurance Gene Sight discuss Follow up MIRELA and therapy scheduled- will make list of concerns for therapy and work on situational stressors, fears, and emotions in therapy educated on cannabis use as it can negatively impact mood, motivation, anxiety, sleep, focus/concentration /memory (vigilance, elasticity, processing and attention); can also contribute to development of psychosis. Cannabis/marijuana information: http_s://shaheed.nih.g ov/publications/janice gfacts/cannabis-mar ijuana http_s://www.[employer].com/cannabis- krq-roftbdmc-rstpqt avinash-adhd/ http_s://www.maribel.o rg/Lrojh-Uqeliu-Uwt ness/Mental-Health- Conditions http_s://psychcentr Isotera.com/depression/t bc-cepsojakl-hshzyi ej-mc-lfhqwutgoq#tr eatcarissa http__s://www.nimh. nih.gov/health/topi cs/ewygzh-kdmzch-ax dications http__s://www.maribel. org/Yaeyb-Tfnpfp-Wu lness/Treatments/Me aiha-Hdahxh-Upjclhn ions educated on all medications, benefits, side effects and risk, and educated on depression, anxiety, and ADHD, mood d/o and educated on compliance of medications, metabolic and movement d/o education appointment's, continue therapy discussion with patient about course of treatment and patient instructions. education on serotonin syndrome Discussed and educated pt regarding benzodiazepines are generally not intended for prolonged use and that use can cause tolerance, dependence, depression, and associated memory issues including dementias (this list is not exhaustive). Benzodiazepine use is generally not recommended concurrently with pain medications and/or other controlled substances educated on all medications, benefits, side effects and risk, and educated on depression, anxiety, and ADHD, mood d/o and educated on compliance of medications, metabolic and movement d/o education appointment is, continue therapy discussion with patient about course of treatment and patient instructions. education on serotonin syndrome SSRI/SNRI side effects discussed including but not limited to, gastric upset, nausea, vomiting, diarrhea and/or constipation, weight changes, sexual side effects including loss of libido, increased suicidal thoughts/behaviors in children and young adults, and serotonin syndrome. Second generation antipsychotics (SGAs) have metabolic syndrome issues with weight gain, increase in prolactin, increased waist circumference, increased lipids, and increased glucose. Thus routine monitoring of weight, metabolic labs, etc. is indicated. A general rank ordering of antipsychotics that have the greatest to the least risk of metabolic effects is olanzapine, quetiapine, risperidone, ziprasidone, and aripiprazole. However, weight gain can occur with all of these drugs and considerable variability exists among patients receiving the same drug regarding the risk of metabolic effects. Anti-psychotic agents not only increase the risk of metabolic disorder, they also increase the risk of CVA, akathisia, and movement disorders including EPS or tardive dyskinesia (more common with first generation antipsychotics) and more. 02/22/2024 Mild mixed bipolar I disorder (ICD-10 - F31.61) Bipolar Disorder: Care Instructions material was published, Learning About Movement Disorders From Antipsychotic Medicines material was published, Learning About Mood Disorders material was published, Learning About How to Get Help During a Mental Health Crisis material was published Bipolar I mix episode- reviewed rx hx per patient list discuss and educated on Caplyta will add Caplyta 42 mg daily samples given # 28 copay card given presently on [place] 150 mg twice a day HX Sun[place]ony toxicty 2022 obtain labs recently done Anxiety - educated on anxiety and therapy hx Ativan - stopped, Visatril- depression took rx x1 no control substance Insomnia r/t mental d/o- Tazodone presently taking 50 mg nightly not helping Add Melatonin 3-5 mg OTC Educated on rx OCD - continue therapy http_s://www.[facility].n ih.gov/health/topic s/htvbrc-prshsq-eem ications http_s://www.maribel.o rg/Wlisi-Abzequ-Fie ness/Treatments/Men qsx-Qawrov-Azvuhicm ons Recommend decrease/stop cannabis use as it may be negatively impacting mood, motivation, anxiety, sleep, focus; can also contribute to development of psychosis Patient educated on all medications including potential benefits, side effects, risks. Educated on proper dosing schedule and importance of compliance educated on all medications, benefits, side effects and risk, and educated on depression, anxiety, and ADHD, mood d/o and educated on compliance of medications, metabolic and movement d/o education appointment is, continue therapy discussion with patient about course of treatment and patient instructions. education on serotonin syndrome SSRI/SNRI side effects discussed including but not limited to, gastric upset, nausea, vomiting, diarrhea and/or constipation, weight changes, sexual side effects including loss of libido, increased suicidal thoughts/behaviors in children and young adults, and serotonin syndrome. Second generation antipsychotics (SGAs) have metabolic syndrome issues with weight gain, increase in prolactin, increased waist circumference, increased lipids, and increased glucose. Thus routine monitoring of weight, metabolic labs, etc. is indicated. A general rank ordering of antipsychotics that have the greatest to the least risk of metabolic effects is olanzapine, quetiapine, risperidone, ziprasidone, and aripiprazole. However, weight gain can occur with all of these drugs and considerable variability exists among patients receiving the same drug regarding the risk of metabolic effects. Anti-psychotic agents not only increase the risk of metabolic disorder, they also increase the risk of CVA, akathisia, and movement disorders including EPS or tardive dyskinesia (more common with first generation antipsychotics) and more. Medication Management and Follow-Up - Plan: - Schedule follow-up appointments every 1-3 months to monitor the patient's response to the medication regimen. - Reinforce the importance of avoiding recreational drug use due to potential neurotoxicity and interactions with prescribed medications. [place] education [place] use reviewed. Risks include risks of toxicity, arrhythmias, cognitive impairment, changes in muscle coordination, weight gain, thyroid and parathyroid changes, polydipsia and polyuria, alopecia, tremor and teratogenicity ( defects). Recommend avoid in females (use contraception consistently). Routine lab monitoring may be required. Patient consented to treatment. Indications: acute eduardo (euphoric eduardo), bipolar prophylaxis, bipolar depression treatment or augmentation, unipolar depression as augmentation with antidepressants Average dose = I,500 mg/day, target serum level 0.8 [place] is known to reduce risk of suicide. 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,000 Renal: chronic renal insufficiency (after 10-20 years), acute renal failure, polyuria occurs in 50-70% [lithium antagonizes anti-diuretic hormone (ADH)], diabetes insipidus in 10% (treat with amiloride) Drug-drug interactions: increase in lithium: NSAIDs, GRZEGORZ inhibitors, angiotensin II antagonists 02/28/2024 Mild mixed bipolar I disorder (ICD-10 - F31.61) 02/22/2024 FAITH (generalized anxiety disorder) (ICD-10 - F41.1) Generalized Anxiety Disorder: Care Instructions material was published, Learning About Generalized Anxiety Disorder material was published, Learning About Anxiety Disorders material was published Bipolar I mix episode- reviewed rx hx per patient list discuss and educated on Caplyta will add Caplyta 42 mg daily samples given # 28 copay card given presently on [place] 150 mg twice a day HX [place] toxicty 2022 obtain labs recently done Anxiety - educated on anxiety and therapy hx Ativan - stopped, Visatril- depression took rx x1 no control substance Insomnia r/t mental d/o- Tazodone presently taking 50 mg nightly not helping Add Melatonin 3-5 mg OTC Educated on rx OCD - continue therapy http_s://www.[facility].n ih.gov/health/topic s/pbptgq-eltbev-ccw ications http_s://www.maribel.o rg/Fmoud-Psjzgw-Sbx ness/Treatments/Men fgc-Dsjwey-Atydftuu ons Recommend decrease/stop cannabis use as it may be negatively impacting mood, motivation, anxiety, sleep, focus; can also contribute to development of psychosis Patient educated on all medications including potential benefits, side effects, risks. Educated on proper dosing schedule and importance of compliance educated on all medications, benefits, side effects and risk, and educated on depression, anxiety, and ADHD, mood d/o and educated on compliance of medications, metabolic and movement d/o education appointment is, continue therapy discussion with patient about course of treatment and patient instructions. education on serotonin syndrome SSRI/SNRI side effects discussed including but not limited to, gastric upset, nausea, vomiting, diarrhea and/or constipation, weight changes, sexual side effects including loss of libido, increased suicidal thoughts/behaviors in children and young adults, and serotonin syndrome. Second generation antipsychotics (SGAs) have metabolic syndrome issues with weight gain, increase in prolactin, increased waist circumference, increased lipids, and increased glucose. Thus routine monitoring of weight, metabolic labs, etc. is indicated. A general rank ordering of antipsychotics that have the greatest to the least risk of metabolic effects is olanzapine, quetiapine, risperidone, ziprasidone, and aripiprazole. However, weight gain can occur with all of these drugs and considerable variability exists among patients receiving the same drug regarding the risk of metabolic effects. Anti-psychotic agents not only increase the risk of metabolic disorder, they also increase the risk of CVA, akathisia, and movement disorders including EPS or tardive dyskinesia (more common with first generation antipsychotics) and more. Medication Management and Follow-Up - Plan: - Schedule follow-up appointments every 1-3 months to monitor the patient's response to the medication regimen. - Reinforce the importance of avoiding recreational drug use due to potential neurotoxicity and interactions with prescribed medications. Sunset [place] education [place] use reviewed. Risks include risks of toxicity, arrhythmias, cognitive impairment, changes in muscle coordination, weight gain, thyroid and parathyroid changes, polydipsia and polyuria, alopecia, tremor and teratogenicity ( defects). Recommend avoid in females (use contraception consistently). Routine lab monitoring may be required. Patient consented to treatment. Indications: acute eduardo (euphoric eduardo), bipolar prophylaxis, bipolar depression treatment or augmentation, unipolar depression as augmentation with antidepressants Average dose = I,500 mg/day, target serum level 0.8 [place] is known to reduce risk of suicide. 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,000 Renal: chronic renal insufficiency (after 10-20 years), acute renal failure, polyuria occurs in 50-70% [lithium antagonizes anti-diuretic hormone (ADH)], diabetes insipidus in 10% (treat with amiloride) Drug-drug interactions: increase in lithium: NSAIDs, GRZEGORZ inhibitors, angiotensin II antagonists 02/29/2024 Mild mixed bipolar I disorder (ICD-10 - F31.61) Bipolar Disorder: Care Instructions material was published, Learning About How to Get Help During a Mental Health Crisis material was published, Learning About Mood Disorders material was published, Learning About Movement Disorders From Antipsychotic Medicines material was published mixed Bipolar- patient had a god response to Abilify 20 mg 2013 Will add Abilify 10 mg daily for Bipolar - educated on rx [place] 450 mg twice a day Continue therapy denies SI/HI no plans or intent educated on 988 and 911 go to nearest ER if have passive/active SI or plan or intent hx [place] toxicity at higher doses [place] education [place] use reviewed. Risks include risks of toxicity, arrhythmias, cognitive impairment, changes in muscle coordination, weight gain, thyroid and parathyroid changes, polydipsia and polyuria, alopecia, tremor and teratogenicity ( defects). Recommend avoid in females (use contraception consistently). Routine lab monitoring may be required. Patient consented to treatment. Indications: acute eduardo (euphoric eduardo), bipolar prophylaxis, bipolar depression treatment or augmentation, unipolar depression as augmentation with antidepressants Average dose = I,500 mg/day, target serum level 0.8 [place] is known to reduce risk of suicide. 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,000 Renal: chronic renal insufficiency (after 10-20 years), acute renal failure, polyuria occurs in 50-70% [lithium antagonizes anti-diuretic hormone (ADH)], diabetes insipidus in 10% (treat with amiloride) Drug-drug interactions: increase in lithium: NSAIDs, GRZEGORZ inhibitors, angiotensin II antagonists patient stopped Caplyta (muscle weaknes after 3 days and seenn in [place] [facility]) Anxiety- monitor in therapy primary Insomnia - Trazodone 50 mg at bedtime OCD- Patient had cardiac hx and 3 surgeries currently on Clomipramine 75 MG daily and will slowly decrease to stopping rx will decrease to Clomipramine 50 mg daily for next month then to 25 mg for a month on next visit discuss and educated on Fluxoxamine 50 mg daily for OCD Monitor for SI http_s://www.[facility].n ih.gov/health/topic s/zhuclq-dkvsdc-ngh ications http_s://www.maribel.o rg/Ynlqv-Lkyyfg-Xiv ness/Treatments/Men caw-Bxvnru-Rxlytrqi ons discuss and educated pharmacogenomic panel- patient will have test next visit Patient educated on all medications including potential benefits, side effects, risks. Educated on proper dosing schedule and importance of compliance educated on all medications, benefits, side effects and risk, and educated on depression, anxiety, and ADHD, mood d/o and educated on compliance of medications, metabolic and movement d/o education appointment is, continue therapy discussion with patient about course of treatment and patient instructions. education on serotonin syndrome SSRI/SNRI side effects discussed including but not limited to, gastric upset, nausea, vomiting, diarrhea and/or constipation, weight changes, sexual side effects including loss of libido, increased suicidal thoughts/behaviors in children and young adults, and serotonin syndrome. Second generation antipsychotics (SGAs) have metabolic syndrome issues with weight gain, increase in prolactin, increased waist circumference, increased lipids, and increased glucose. Thus routine monitoring of weight, metabolic labs, etc. is indicated. A general rank ordering of antipsychotics that have the greatest to the least risk of metabolic effects is olanzapine, quetiapine, risperidone, ziprasidone, and aripiprazole. However, weight gain can occur with all of these drugs and considerable variability exists among patients receiving the same drug regarding the risk of metabolic effects. Anti-psychotic agents not only increase the risk of metabolic disorder, they also increase the risk of CVA, akathisia, and movement disorders including EPS or tardive dyskinesia (more common with first generation antipsychotics) and more. Medication Management and Follow-Up - Plan: - Schedule follow-up appointments every 1-3 months to monitor the patient's response to the medication regimen. - Reinforce the importance of avoiding recreational drug use due to potential neurotoxicity and interactions with prescribed medications. 03/13/2024 Mild mixed bipolar I disorder (ICD-10 - F31.61) Bipolar Disorder: Care Instructions material was published, Learning About How to Get Help During a Mental Health Crisis material was published, Learning About Mood Disorders material was published, Learning About Movement Disorders From Antipsychotic Medicines material was published, Bipolar Disorder: Care Instructions material was published, Learning About Movement Disorders From Antipsychotic Medicines material was published, Learning About Mood Disorders material was published, Learning About How to Get Help During a Mental Health Crisis material was published mixed Bipolar- patient had a good response to Abilify 20 mg 2013 Increase Abilify 15 mg daily for Bipolar eduardo - educated on rx Decrease [place] 300 mg twice a day- seen neuropsychiatry- r/o hand tremors to [place] Continue therapy denies SI/HI no plans or intent educated on 988 and 911 go to nearest ER if have passive/active SI or plan or intent hx [place] toxicity at higher doses [place] education [place] use reviewed. Risks include risks of toxicity, arrhythmias, cognitive impairment, changes in muscle coordination, weight gain, thyroid and parathyroid changes, polydipsia and polyuria, alopecia, tremor and teratogenicity ( defects). Recommend avoid in females (use contraception consistently). Routine lab monitoring may be required. Patient consented to treatment. Indications: acute eduardo (euphoric eduardo), bipolar prophylaxis, bipolar depression treatment or augmentation, unipolar depression as augmentation with antidepressants Average dose = I,500 mg/day, target serum level 0.8 [place] is known to reduce risk of suicide. 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,000 Renal: chronic renal insufficiency (after 10-20 years), acute renal failure, polyuria occurs in 50-70% [lithium antagonizes anti-diuretic hormone (ADH)], diabetes insipidus in 10% (treat with amiloride) Drug-drug interactions: increase in lithium: NSAIDs, GRZEGORZ inhibitors, angiotensin II antagonists Anxiety- monitor in therapy primary Insomnia - Trazodone 50 mg at bedtime OCD- Patient had cardiac hx and 3 surgeries decrease Clomipramine 25 mg for a month plan to stop in a month discuss and educated on increase Fluxoxamine 100 mg daily for OCD- tolerating well no s/e Monitor for SI http_s://www.[facility].n ih.gov/health/topic s/yodztr-ewqmak-cef ications http_s://www.maribel.o rg/Roawb-Iuvysj-Nlx ness/Treatments/Men pby-Gatqie-Udwnzxgy ons discuss and educated pharmacogenomic panel- patient will have test next visit Patient educated on all medications including potential benefits, side effects, risks. Educated on proper dosing schedule and importance of compliance educated on all medications, benefits, side effects and risk, and educated on depression, anxiety, and ADHD, mood d/o and educated on compliance of medications, metabolic and movement d/o education appointment is, continue therapy discussion with patient about course of treatment and patient instructions. education on serotonin syndrome SSRI/SNRI side effects discussed including but not limited to, gastric upset, nausea, vomiting, diarrhea and/or constipation, weight changes, sexual side effects including loss of libido, increased suicidal thoughts/behaviors in children and young adults, and serotonin syndrome. Second generation antipsychotics (SGAs) have metabolic syndrome issues with weight gain, increase in prolactin, increased waist circumference, increased lipids, and increased glucose. Thus routine monitoring of weight, metabolic labs, etc. is indicated. A general rank ordering of antipsychotics that have the greatest to the least risk of metabolic effects is olanzapine, quetiapine, risperidone, ziprasidone, and aripiprazole. However, weight gain can occur with all of these drugs and considerable variability exists among patients receiving the same drug regarding the risk of metabolic effects. Anti-psychotic agents not only increase the risk of metabolic disorder, they also increase the risk of CVA, akathisia, and movement disorders including EPS or tardive dyskinesia (more common with first generation antipsychotics) and more. Medication Management and Follow-Up - Plan: - Schedule follow-up appointments every 1-3 months to monitor the patient's response to the medication regimen. - Reinforce the importance of avoiding recreational drug use due to potential neurotoxicity and interactions with prescribed medications. 03/19/2024 FAITH (generalized anxiety disorder) (ICD-10 - F41.1) Learning About Generalized Anxiety Disorder material was published, Generalized Anxiety Disorder: Care Instructions material was published, Learning About Anxiety Disorders material was published, Learning About Generalized Anxiety Disorder material was published, Generalized Anxiety Disorder: Care Instructions material was published, Learning About Anxiety Disorders material was published 1. Bipolar Disorder - Manic Episode: - [place] dose was reduced to 300 mg twice daily due to worsening tremor; however, this has led to a manic episode. -monitor lithium level - Encourage the patient to avoid excessive caffeine intake, such as energy drinks, as this may exacerbate eduardo. - Reevaluate the need for medication adjustments if manic symptoms persist or worsen. 3. Depression: - Current depression score is 5 out of 10, an improvement from the usual 8 or 9. - Continue fluvoxamine 100 mg at bedtime and clomipramine 25 mg as prescribed. - Collaborate with Abby to adjust antidepressant medications if needed, ensuring they do not push the patient back into eduardo. 4. Anxiety: - Continue aripiprazole 15 mg at bedtime as prescribed for anxiety management. 5. Insomnia: - Continue estazolam, melatonin, and trazodone 50 mg as prescribed for sleep management. - Monitor sleep patterns and adjust medications if needed. 6. Impulsive Spending: - Encourage the patient to develop strategies for managing impulsive spending, such as seeking support from a therapist or financial counselor. - Monitor the impact of lithium on impulsive behavior and adjust the dose if necessary. Follow-up: - Schedule a follow-up appointment with Abby to reevaluate the patient's progress and make any necessary medication adjustments. 03/19/2024 Mild mixed bipolar I disorder (ICD-10 - F31.61) Bipolar Disorder: Care Instructions material was published, Learning About How to Get Help During a Mental Health Crisis material was published, Learning About Mood Disorders material was published, Learning About Movement Disorders From Antipsychotic Medicines material was published, Bipolar Disorder: Care Instructions material was published, Learning About Movement Disorders From Antipsychotic Medicines material was published, Learning About Mood Disorders material was published, Learning About How to Get Help During a Mental Health Crisis material was published 1. Bipolar Disorder - Manic Episode: - [place] dose was reduced to 300 mg twice daily due to worsening tremor; however, this has led to a manic episode. -monitor lithium level - Encourage the patient to avoid excessive caffeine intake, such as energy drinks, as this may exacerbate eduardo. - Reevaluate the need for medication adjustments if manic symptoms persist or worsen. 3. Depression: - Current depression score is 5 out of 10, an improvement from the usual 8 or 9. - Continue fluvoxamine 100 mg at bedtime and clomipramine 25 mg as prescribed. - Collaborate with Abby to adjust antidepressant medications if needed, ensuring they do not push the patient back into eduardo. 4. Anxiety: - Continue aripiprazole 15 mg at bedtime as prescribed for anxiety management. 5. Insomnia: - Continue estazolam, melatonin, and trazodone 50 mg as prescribed for sleep management. - Monitor sleep patterns and adjust medications if needed. 6. Impulsive Spending: - Encourage the patient to develop strategies for managing impulsive spending, such as seeking support from a therapist or financial counselor. - Monitor the impact of lithium on impulsive behavior and adjust the dose if necessary. Follow-up: - Schedule a follow-up appointment with Abby to reevaluate the patient's progress and make any necessary medication adjustments. 04/01/2024 Mild mixed bipolar I disorder (ICD-10 - F31.61) Bipolar Disorder: Care Instructions material was published, Learning About How to Get Help During a Mental Health Crisis material was published, Learning About Mood Disorders material was published, Learning About Movement Disorders From Antipsychotic Medicines material was published, Bipolar Disorder: Care Instructions material was published, Learning About Movement Disorders From Antipsychotic Medicines material was published, Learning About Mood Disorders material was published, Learning About How to Get Help During a Mental Health Crisis material was published 1. Bipolar Disorder - Manic Episode: - [place] dose was reduced to 300 mg twice daily due to worsening tremor; however, this has led to a manic episode continue over last month increase aripiprazole 20 mg at bedtime -monitor lithium level - Encourage the patient to avoid excessive caffeine intake, such as energy drinks, as this may exacerbate eduardo. - Reevaluate the need for medication adjustments if manic symptoms persist or worsen. 3. Depression: - Continue fluvoxamine 100 mg at bedtime and d/c clomipramine 25 mg as prescribed. 4. Anxiety: - increase aripiprazole 20 mg at bedtime as prescribed for anxiety management. 5. Insomnia: - Continue estazolam, melatonin, and trazodone 50 mg as prescribed for sleep management. - Monitor sleep patterns and adjust medications if needed. hx heart issues rx hx Vraylar, Abilify, Caplyta (muscle weakness), [place] (tremors) Fluvoxamine, Clomipramine, estazolam, melatonin, and trazodone 50 mg 6. Impulsive Spending: - Encourage the patient to develop strategies for managing impulsive spending, such as seeking support from a therapist or financial counselor. - Monitor the impact of lithium on impulsive behavior and adjust the dose if necessary. Follow-up: 04/24/2024 FAITH (generalized anxiety disorder) (ICD-10 - F41.1) Learning About Generalized Anxiety Disorder material was published, Generalized Anxiety Disorder: Care Instructions material was published, Learning About Anxiety Disorders material was published, Learning About Generalized Anxiety Disorder material was published, Generalized Anxiety Disorder: Care Instructions material was published, Learning About Anxiety Disorders material was published 1. Bipolar Disorder - discuss Depakote for eduardo and educated on rx will increase Depakote ER 500 MG TWICE a day for Bipolar eduardo - improved on Depakote since 04/10/24 (out of eduardo) educated on labs with Depakote and BCP presently on planning on tubal plan to titrate off [place] in near future Risk- Depakote can cause major congenital malformations incl. neural tube defects, decr. IQ scores, neurodevelopmental disorders after in utero exposure; contraindicated for migraine prophylaxis use in and women of reproductive potential w/o effective contraception; should not be used for epilepsy or bipolar disorder use in and women planning to become unless other tx options have failed or are unacceptable; women should use effective contraception during tx - [place] will decrease dose to 150 mg twice daily aripiprazole 20 mg at bedtime -monitor lithium level and Depakote levels - Encourage the patient to avoid excessive caffeine intake, such as energy drinks, as this may exacerbate eduardo. - Reevaluate the need for medication adjustments if manic symptoms persist or worsen. 3. Depression: - Continue fluvoxamine 100 mg at bedtime 4. Anxiety: - aripiprazole 20 mg at bedtime as prescribed for anxiety management. 5. Insomnia: - Continue estazolam, melatonin, and trazodone 50 mg as prescribed for sleep management. - Monitor sleep patterns and adjust medications if needed. hx heart issues rx hx Vraylar, Abilify, Caplyta (muscle weakness), [place] (tremors) Fluvoxamine, Clomipramine, estazolam, melatonin, and trazodone 50 mg 6. Impulsive Spending: with eduardo - improved with Depakote - Encourage the patient to develop strategies for managing impulsive spending, such as seeking support from a therapist or financial counselor. - Monitor the impact of lithium and Depakote, Abilify on impulsive behavior and adjust the dose if necessary. labs reviewd 01/27 scanned into chart Follow-up: 2 weeks 04/24/2024 Bipolar depression (ICD-10 - F31.9) 1. Bipolar Disorder - discuss Depakote for eduardo and educated on rx will increase Depakote ER 500 MG TWICE a day for Bipolar eduardo - improved on Depakote since 04/10/24 (out of eduardo) educated on labs with Depakote and BCP presently on planning on tubal plan to titrate off [place] in near future Risk- Depakote can cause major congenital malformations incl. neural tube defects, decr. IQ scores, neurodevelopmental disorders after in utero exposure; contraindicated for migraine prophylaxis use in and women of reproductive potential w/o effective contraception; should not be used for epilepsy or bipolar disorder use in and women planning to become unless other tx options have failed or are unacceptable; women should use effective contraception during tx - [place] will decrease dose to 150 mg twice daily aripiprazole 20 mg at bedtime -monitor lithium level and Depakote levels - Encourage the patient to avoid excessive caffeine intake, such as energy drinks, as this may exacerbate eduardo. - Reevaluate the need for medication adjustments if manic symptoms persist or worsen. 3. Depression: - Continue fluvoxamine 100 mg at bedtime 4. Anxiety: - aripiprazole 20 mg at bedtime as prescribed for anxiety management. 5. Insomnia: - Continue estazolam, melatonin, and trazodone 50 mg as prescribed for sleep management. - Monitor sleep patterns and adjust medications if needed. hx heart issues rx hx Vraylar, Abilify, Caplyta (muscle weakness), [place] (tremors) Fluvoxamine, Clomipramine, estazolam, melatonin, and trazodone 50 mg 6. Impulsive Spending: with eduardo - improved with Depakote - Encourage the patient to develop strategies for managing impulsive spending, such as seeking support from a therapist or financial counselor. - Monitor the impact of lithium and Depakote, Abilify on impulsive behavior and adjust the dose if necessary. labs reviewd 01/27 scanned into chart Follow-up: 2 weeks 04/10/2024 Mild mixed bipolar I disorder (ICD-10 - F31.61) Bipolar Disorder: Care Instructions material was published, Learning About How to Get Help During a Mental Health Crisis material was published, Learning About Mood Disorders material was published, Learning About Movement Disorders From Antipsychotic Medicines material was published, Bipolar Disorder: Care Instructions material was published, Learning About Movement Disorders From Antipsychotic Medicines material was published, Learning About Mood Disorders material was published, Learning About How to Get Help During a Mental Health Crisis material was published, Bipolar Disorder: Care Instructions material was published, Learning About Movement Disorders From Antipsychotic Medicines material was published, Learning About How to Get Help During a Mental Health Crisis material was published, Learning About Mood Disorders material was published 1. Bipolar Disorder - Manic Episode: discuss Depakote for eduarod and educated on rx will add Depakote ER 250 MG TWICE a day for Bipolar eduardo - educated on labs with Depakote and BCP presently on planning on tubal plan to titrate off [place] next visit Risk- Depakote can cause major congenital malformations incl. neural tube defects, decr. IQ scores, neurodevelopmental disorders after in utero exposure; contraindicated for migraine prophylaxis use in and women of reproductive potential w/o effective contraception; should not be used for epilepsy or bipolar disorder use in and women planning to become unless other tx options have failed or are unacceptable; women should use effective contraception during tx - [place] dose was reduced to 300 mg twice daily due to worsening tremor; however, this has led to a manic episode continue over last 6 weeks aripiprazole 20 mg at bedtime recently increased -monitor lithium level - Encourage the patient to avoid excessive caffeine intake, such as energy drinks, as this may exacerbate eduardo. - Reevaluate the need for medication adjustments if manic symptoms persist or worsen. 3. Depression: - Continue fluvoxamine 100 mg at bedtime 4. Anxiety: - aripiprazole 20 mg at bedtime as prescribed for anxiety management. 5. Insomnia: - Continue estazolam, melatonin, and trazodone 50 mg as prescribed for sleep management. - Monitor sleep patterns and adjust medications if needed. hx heart issues rx hx Vraylar, Abilify, Caplyta (muscle weakness), [place] (tremors) Fluvoxamine, Clomipramine, estazolam, melatonin, and trazodone 50 mg 6. Impulsive Spending: - Encourage the patient to develop strategies for managing impulsive spending, such as seeking support from a therapist or financial counselor. - Monitor the impact of lithium on impulsive behavior and adjust the dose if necessary. labs reviewd 01/27 scanned into chart Follow-up: 05/05/2024 FAITH (generalized anxiety disorder) (ICD-10 - F41.1) 1. Anxiety - Patient reports 7/10 anxiety level with intrusive thoughts. - Medications don't seem effective. - Plan: a. increase aripiprazole to 30mg. b. Decrease fluvoxamine to 50mg. c. Monitor medication response. d. Encourage suicide hotline (687) use if needed. e. advised when to seek emergency services. 2. Bipolar Disorder - Transitioning from lithium to Depakote for manic depression. - No changes noticed with adjustment. - Plan: a. Continue Depakote 500mg BID and lithium 150mg BID until therapeutic Depakote level. b. Follow up on to assess progress. 3. Insomnia - Reports 9-10 hours sleep with 2am awakenings. Trazodone not helping. - Plan: a. Discontinue trazodone. b. Continue melatonin 30min before bed. c. Add melatonin at 2am if awake. d. Monitor sleep quality. 4. Suicidal Ideation - Reports passive suicidal thoughts 4x/day. - Denies plan/intent. - Plan: a. Close monitoring. b. Encourage 988 hotline use if needed. c. Follow up on for medication effect. e. advised to go to the emergency room if thoughts get worse or unmanageable. 5. Increased Appetite - Reports constant hunger. - Plan: a. Monitor appetite/weight. b. Discuss healthy eating habits. 6. Headache - Reports headaches, not severe. - Plan: a. Monitor frequency/severity. b. Consider medication side effects. c. Recommend OTC relief as needed. 7. Medication Refill - Fluvoxamine refill needed, 3 pills left. - increase Aripiprazole to 30 mg HS. - Plan: Send refill to [facility]. 8. Follow-up - Appointment with [facility] on . - Plan: Continue monitoring progress and medication response. 05/06/2024 Mild mixed bipolar I disorder (ICD-10 - F31.61) Bipolar Disorder: Care Instructions material was published, Learning About Movement Disorders From Antipsychotic Medicines material was published, Learning About How to Get Help During a Mental Health Crisis material was published, Learning About Mood Disorders material was published 1. Anxiety -a. Patient reports anxiety level with intrusive thoughts.- therapy b. discuss and educated on Vistaril 10 mg three tmes a day PRN for anxiety and may take 1/2 dose (5 mg) in day if make tired - therapy continue - Plan: a. b. fluvoxamine to 50mg. - anxiety and OCD c. Monitor medication response. d. Encourage suicide hotline (988) use if needed. e. advised when to seek emergency services. 2. Bipolar Disorder - Transitioning from lithium to Depakote for manic depression. - No changes noticed with adjustment. - Plan: a. Continue Depakote 500mg BID and lithium 150mg BID until therapeutic Depakote level. b. Follow up on to assess progress. C. Abilify 30 mg at bedtime- patient reported has not picked up yet - prescribed 05/05/24 from [facility] walk in clinic 3. Insomnia - Reports 9-10 hours in bed and 8 hours sleep with awakenings. - Plan: a.. sleep hygiene b. Continue melatonin 30min before bed. c. melatonin 3 mg OTC d. Monitor sleep quality. 4. Suicidal Ideation - Reports no passive suicidal thoughts - Denies plan/intent. - Plan: a. Close monitoring. b. Encourage 988 hotline use if needed. c. Follow up on for medication effect. e. advised to go to the emergency room if thoughts get worse or unmanageable. 5. OCD A. fluvoxamine to 50mg. 6. Increased Appetite - Reports constant hunger. - Plan: a. Monitor appetite/weight. b. Discuss healthy eating habits. c. heart healthy diet and excise 7. Headache - Reports headaches, not severe. - Plan: see PCP patient will schedule appt a. Monitor frequency/severity. b. Consider medication side effects. c. Recommend OTC relief as needed. d. sleep hygiene education 8. Medication Refill - Fluvoxamine sent 05/05/24 - Aripiprazole to 30 mg HS.- RX SENT 05/05/24 - Plan: Send refill to [facility]. 8. Follow-up - Appointment with [facility] on . - Plan: Continue monitoring progress and medication response. Recommend decrease/stop cannabis use as it can negatively impact mood, motivation, anxiety, sleep, focus/concentration /memory (vigilance, elasticity, processing and attention); can also contribute to development of psychosis. Cannabis/marijuana information: http_s://shaheed.nih.g ov/publications/janice gfacts/cannabis-mar ijuana http_s://www.[employer]/cannabis- bov-gqnccsqm-eipwfx avinash-adhd/ http_s://www.maribel.o rg/Rnsjx-Ckppnf-Jsj ness/Mental-Health- Conditions http_s://psychcentr Isotera.com/depression/t ma-pslmygyyz-ueqicm vz-ka-xnvkgypfyk#tr eatments http__s://www.nimh. nih.gov/health/topi cs/qpewud-bmauss-nz dications http__s://www.maribel. org/Oylpl-Nbtavn-Pv lness/Treatments/Me zakx-Ilqbzr-Kyaxmdu ions educated on all medications, benefits, side effects and risk, and educated on depression, anxiety, and ADHD, mood d/o and educated on compliance of medications, metabolic and movement d/o education appointment's, continue therapy discussion with patient about course of treatment and patient instructions. education on serotonin syndrome Discussed and educated pt regarding benzodiazepines are generally not intended for prolonged use and that use can cause tolerance, dependence, depression, and associated memory issues including dementias (this list is not exhaustive). Benzodiazepine use is generally not recommended concurrently with pain medications and/or other controlled substances educated on all medications, benefits, side effects and risk, and educated on depression, anxiety, and ADHD, mood d/o and educated on compliance of medications, metabolic and movement d/o education appointment is, continue therapy discussion with patient about course of treatment and patient instructions. education on serotonin syndrome SSRI/SNRI side effects discussed including but not limited to, gastric upset, nausea, vomiting, diarrhea and/or constipation, weight changes, sexual side effects including loss of libido, increased suicidal thoughts/behaviors in children and young adults, and serotonin syndrome. Second generation antipsychotics (SGAs) have metabolic syndrome issues with weight gain, increase in prolactin, increased waist circumference, increased lipids, and increased glucose. Thus routine monitoring of weight, metabolic labs, etc. is indicated. A general rank ordering of antipsychotics that have the greatest to the least risk of metabolic effects is olanzapine, quetiapine, risperidone, ziprasidone, and aripiprazole. However, weight gain can occur with all of these drugs and considerable variability exists among patients receiving the same drug regarding the risk of metabolic effects. Anti-psychotic agents not only increase the risk of metabolic disorder, they also increase the risk of CVA, akathisia, and movement disorders including EPS or tardive dyskinesia (more common with first generation antipsychotics) and more. Medication Management and Follow-Up - Plan: - Schedule follow-up appointments every 1-3 months to monitor the patient's response to the medication regimen. - Reinforce the importance of avoiding recreational drug use due to potential neurotoxicity and interactions with prescribed medications. Risk- Depakote can cause major congenital malformations incl. neural tube defects, decr. IQ scores, neurodevelopmental disorders after in utero exposure; contraindicated for migraine prophylaxis use in and women of reproductive potential w/o effective contraception; should not be used for epilepsy or bipolar disorder use in and women planning to become unless other tx options have failed or are unacceptable; women should use effective contraception during tx 05/15/2024 Bipolar disorder, current episode depressed, severe, without psychotic features (ICD-10 - F31.4) 1. Anxiety -a. Patient reports anxiety level with intrusive thoughts.- therapy b. discuss and educated on Vistaril 10 mg three tmes a day PRN for anxiety and may take 1/2 dose (5 mg) in day if make tired - therapy continue - Plan: a. b. fluvoxamine to 100mg. - anxiety and OCD c. Monitor medication response. d. Encourage suicide hotline (988) use if needed. e. advised when to seek emergency services. 2. Bipolar Disorder - lithium and Depakote for manic and depression - reported tolerating well and helping mood. - No changes - Plan: a. Continue Depakote 500mg BID and lithium 150mg BID - educated on labs for [place] and Depakote level. b. Follow up [facility] and therapy scheduled C. Abilify 30 mg at bedtime- patient reported has not picked up yet - prescribed 05/05/24 from [facility] walk in clinic planned Tubal 05/29/24 3. Insomnia - Reports 9-10 hours - Plan: a.. sleep hygiene b. Continue melatonin 30min before bed. c. melatonin 3 mg OTC d. Monitor sleep quality. Trazodone 50 mg PRN 4. Suicidal Ideation- stable - Reports no passive suicidal thoughts - Denies plan/intent. - Plan: a. Close monitoring. b. Encourage 988 hotline use if needed. c. Follow up [facility] and seeing therapist e. advised to go to the emergency room if thoughts get worse or unmanageable. 5. OCD- increase thoughts and behaviors on 50 mg dose A. increase fluvoxamine to 100mg. 6. Appetite normal now - Reports constant hunger. - Plan: a. Monitor appetite/weight. b. Discuss healthy eating habits. c. heart healthy diet and excise 7. Headache - Reports headaches, improved - Plan: see PCP patient will schedule appt and discuss HTN a. Monitor frequency/severity. b. Consider medication side effects. c. Recommend OTC relief as needed. d. sleep hygiene education 8. Medication Refill - Plan: Send refill to [facility] Recommend decrease/stop cannabis use as it can negatively impact mood, motivation, anxiety, sleep, focus/concentration /memory (vigilance, elasticity, processing and attention); can also contribute to development of psychosis. Cannabis/marijuana information: http_s://shaheed.nih.g ov/publications/jnaice gfacts/cannabis-mar prosper http_s://www.Weight Wins/cannabis- yjk-lwieyxux-rrnltn avinash-adhd/ http_s://www.maribel.o /Yzony-Opkvgr-Sbc ness/Mental-Health- Conditions http_s://psychcentr Isotera.com/depression/t hb-ismzhgkfm-xjfuhz nc-ch-akqtkdmxkd#tr eatments http__s://www.nimh. nih.gov/health/topi cs/xyxmpk-jakzyc-dn dications http__s://www.maribel. org/Erswt-Dmuxlm-Fx lness/Treatments/Me amwk-Mcteim-Sghohul ions educated on all medications, benefits, side effects and risk, and educated on depression, anxiety, and ADHD, mood d/o and educated on compliance of medications, metabolic and movement d/o education appointment's, continue therapy discussion with patient about course of treatment and patient instructions. education on serotonin syndrome Discussed and educated pt regarding benzodiazepines are generally not intended for prolonged use and that use can cause tolerance, dependence, depression, and associated memory issues including dementias (this list is not exhaustive). Benzodiazepine use is generally not recommended concurrently with pain medications and/or other controlled substances educated on all medications, benefits, side effects and risk, and educated on depression, anxiety, and ADHD, mood d/o and educated on compliance of medications, metabolic and movement d/o education appointment is, continue therapy discussion with patient about course of treatment and patient instructions. education on serotonin syndrome SSRI/SNRI side effects discussed including but not limited to, gastric upset, nausea, vomiting, diarrhea and/or constipation, weight changes, sexual side effects including loss of libido, increased suicidal thoughts/behaviors in children and young adults, and serotonin syndrome. Second generation antipsychotics (SGAs) have metabolic syndrome issues with weight gain, increase in prolactin, increased waist circumference, increased lipids, and increased glucose. Thus routine monitoring of weight, metabolic labs, etc. is indicated. A general rank ordering of antipsychotics that have the greatest to the least risk of metabolic effects is olanzapine, quetiapine, risperidone, ziprasidone, and aripiprazole. However, weight gain can occur with all of these drugs and considerable variability exists among patients receiving the same drug regarding the risk of metabolic effects. Anti-psychotic agents not only increase the risk of metabolic disorder, they also increase the risk of CVA, akathisia, and movement disorders including EPS or tardive dyskinesia (more common with first generation antipsychotics) and more. 09/17/2024 Bipolar depression (ICD-10 - F31.9) If you are planning on becoming , notify your health care provider so that he/she can best manage your medications. People living with bipolar disorder who wish to become face important decisions. It is important to discuss the risks and benefits of treatment with your doctor and caregivers. [place] has been associated with an increased risk of Ebstein's anomaly, a heart valve defect. Even though data suggest that the risk of Ebstein's anomaly from first trimester use of lithium is very low, an ultrasound of the heart is recommended at 16 to 20 weeks of gestation. [place] levels should be monitored monthly in early and weekly near delivery. Do not stop taking lithium without first speaking to your health care provider. Discontinuing mood stabilizer medications during has been associated with a significant increase in symptom relapse. If an overdose occurs call your doctor or 911. You may need urgent medical care. You may also contact the poison control center at . A specific treatment to reverse the effects of lithium does not exist, but there are treatments to decrease the effects of the medication. Only a doctor can determine if you require treatment. Avoid drinking alcohol or using illegal drugs while you are taking lithium. They may decrease the benefits (e.g., worsen your condition) and increase adverse effects (e.g., sedation) of the medication. Avoid low sodium diets and dehydration because this can increase the risk of lithium toxicity. Avoid over the counter and prescription pain medications that contain nonsteroidal anti-inflammatory medications (NSAIDS) such as ibuprofen (Motrin, Advil) or naproxen (Aleve, Naprosyn) because these medications can increase the risk of toxicity from lithium. Avoid excessive intake of caffeinated beverages, such as coffee, tea, cola or energy drinks, since these may decrease levels of lithium and decrease effectiveness of the medication. Discontinuing caffeine use may increase lithium levels. Consult your health care provider before reducing or stopping caffeine use. What are the possible side effects of lithium? Common side effects Headache Nausea or vomiting Diarrhea Dizziness or drowsiness Changes in appetite Hand tremors Dry mouth Increased thirst Increased urination Thinning of hair or hair loss Acne-like rash Rare/Serious side effects Signs of lithium toxicity include severe nausea and vomiting, severe hand tremors, confusion, vision changes, and unsteadiness while standing or walking. These symptoms need to be addressed immediately with a medical doctor to ensure your lithium level is not dangerously high. In rare cases, lithium may lead to a reversible condition known as diabetes insipidus. If this occurs you would notice a significant increase in thirst and how much fluid you drink and how much you urinate. Talk to your doctor if you notice you are urinating more frequently than usual. Are There Any Risks For Taking [place] For Long Periods Of Time? Hypothyroidism (low levels of thyroid hormone) may occur with long-term lithium use. Rare kidney problems have been associated with long-term use of lithium. The risk increases with high levels of lithium. Your doctor will monitor your kidney function at routine check-ups to ensure this does not occur. Summary of Black Box Warnings [place] Toxicity [place] toxicity is closely related to lithium blood levels and can occur at doses close to therapeutic levels; lithium levels should be monitored closely when starting the medication or if individuals experience side effects of the medication. 10/06/2024 Bipolar depression (ICD-10 - F31.9) If you are planning on becoming , notify your health care provider so that he/she can best manage your medications. People living with bipolar disorder who wish to become face important decisions. It is important to discuss the risks and benefits of treatment with your doctor and caregivers. [place] has been associated with an increased risk of Ebstein's anomaly, a heart valve defect. Even though data suggest that the risk of Ebstein's anomaly from first trimester use of lithium is very low, an ultrasound of the heart is recommended at 16 to 20 weeks of gestation. [place] levels should be monitored monthly in early and weekly near delivery. Do not stop taking lithium without first speaking to your health care provider. Discontinuing mood stabilizer medications during has been associated with a significant increase in symptom relapse. If an overdose occurs call your doctor or 911. You may need urgent medical care. You may also contact the poison control center at . A specific treatment to reverse the effects of lithium does not exist, but there are treatments to decrease the effects of the medication. Only a doctor can determine if you require treatment. Avoid drinking alcohol or using illegal drugs while you are taking lithium. They may decrease the benefits (e.g., worsen your condition) and increase adverse effects (e.g., sedation) of the medication. Avoid low sodium diets and dehydration because this can increase the risk of lithium toxicity. Avoid over the counter and prescription pain medications that contain nonsteroidal anti-inflammatory medications (NSAIDS) such as ibuprofen (Motrin, Advil) or naproxen (Aleve, Naprosyn) because these medications can increase the risk of toxicity from lithium. Avoid excessive intake of caffeinated beverages, such as coffee, tea, cola or energy drinks, since these may decrease levels of lithium and decrease effectiveness of the medication. Discontinuing caffeine use may increase lithium levels. Consult your health care provider before reducing or stopping caffeine use. What are the possible side effects of lithium? Common side effects Headache Nausea or vomiting Diarrhea Dizziness or drowsiness Changes in appetite Hand tremors Dry mouth Increased thirst Increased urination Thinning of hair or hair loss Acne-like rash Rare/Serious side effects Signs of lithium toxicity include severe nausea and vomiting, severe hand tremors, confusion, vision changes, and unsteadiness while standing or walking. These symptoms need to be addressed immediately with a medical doctor to ensure your lithium level is not dangerously high. In rare cases, lithium may lead to a reversible condition known as diabetes insipidus. If this occurs you would notice a significant increase in thirst and how much fluid you drink and how much you urinate. Talk to your doctor if you notice you are urinating more frequently than usual. Are There Any Risks For Taking [place] For Long Periods Of Time? Hypothyroidism (low levels of thyroid hormone) may occur with long-term lithium use. Rare kidney problems have been associated with long-term use of lithium. The risk increases with high levels of lithium. Your doctor will monitor your kidney function at routine check-ups to ensure this does not occur. Summary of Black Box Warnings [place] Toxicity [place] toxicity is closely related to lithium blood levels and can occur at doses close to therapeutic levels; lithium levels should be monitored closely when starting the medication or if individuals experience side effects of the medication. 1. Anxiety -a. Patient reports anxiety level with intrusive thoughts.- therapy b. discuss and educated on all rx Increase Vistaril 25 mg three time a day for anxiety- reported 10 mg dose not helping - therapy continue- discuss DBT/CBT therapy discuss IOP program discuss journaling, coping skills, and identify triggers insurance requires 30 days at a time with refills 2. OCD A. fluvoxamine to 100mg. - anxiety and OCD- B. Monitor medication response. C. Encourage suicide hotline (988) use if needed. D. advised when to seek emergency services. 3. Bipolar Disorder educated on therapy and CBT/DBT. EDMR- will work on situational stressors and fears in therapy Educated on proper use light box and not to stay in basement in day and come upstairs in day and open curtains, and outside help depression - lithium and Depakote for manic and depression - reported tolerating well and helping mood. Continue Depakote 500 mg BID lithium 150 mg twice a day hx r/t eduardo s/s at once a day and improved and monitor tremors in hands - labs 09/30 [place] 0.3 Depakote 33.6 Discuss Gene sight and Invega for Bipolar to control symptoms - Invega 3 mg daily continue discuss and educated on Invega injections for near future- pateint agreed plan to taper off [place] r/t tremors - educated on labs for [place] and Depakote level.- [facility] . Follow up [facility] and therapy scheduled- will make list of concerns for therapy and work on situational stressors, fears, and emotions in therapy labs completed 09/30 Gene sight reviewed and Abilify may need to be decrease in future - patient reported been working well Tubal 05/30/24- 3. Insomnia - Reports sleep apnea -no CPAP presently not using- plan on getting new CPAP- PCP ordered - Plan: a.. sleep hygiene b. Continue melatonin 30min before bed. c. melatonin 3 mg OTC d. Monitor sleep quality. 4. Suicidal Ideation- stable - Reports no passive suicidal thoughts - Denies plan/intent. a. Close monitoring. b. Encourage 988/911 hotline use if needed. c. Follow up [facility] and seeing therapist e. advised to go to the emergency room if thoughts get worse or unmanageable. 5. OCD- thoughts and behaviors fluvoxamine to 100mg. 6.ADHD Comination hx since childhood and rx at childhood and adult LIDIA-AE 2 TEST Reviewed test results are congruent for ADHD combination discuss and educated on non-stimulates and stimualtes reviewed Gene sight - Vyvanse, Dextroamphetamine, and Adderall has no proven genetic markers Focalin and Concerta moderate gene- drug interaction and genotype may impact drug mechanism of action and result in moderate reduce efficacy discuss and educated ] Guanfacine 1 mg daily in am Qelbree- Moderate gene interaction- serum levls may be too low and lower doses may be needed Straterra- significant gene and drug interaction- serum levels too high and lower dose may be needed, CYP2D6 indicate increase side effects, but also greater symptom improvement with those find tx toleratable, potential gene interaction ADHD stimulates education Discuss with patient risk of misuse, abuse, and addiction before prescribing stimulant medicines. 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 Educate patients and their families on these serious risks, proper storage of the medicine, and proper disposal of any unused medicine. Educated patient will monitor Throughout treatment, regularly assess and monitor them for signs and symptoms of nonmedical use, addiction, and potential diversion, which may be evidenced by more frequent renewal. requests than warranted by the prescribed dosage. [facility] [place] prescription reviewed local pharmacy in [facility], no early refills on control substance educated on non-stimulate and stimulates - Plan: Send refill to [facility] need 30 days at a time r/t insurance Gene Sight discuss Follow up [facility] and therapy scheduled- will make list of concerns for therapy and work on situational stressors, fears, and emotions in therapy educated on cannabis use as it can negatively impact mood, motivation, anxiety, sleep, focus/concentration /memory (vigilance, elasticity, processing and attention); can also contribute to development of psychosis. Cannabis/marijuana information: http_s://shaheed.nih.g ov/publications/janice gfacts/cannabis-mar ijuana http_s://www.[employer]care/cannabis- obu-qhrtoepd-bzknwc avinash-adhd/ http_s://www.maribel.o rg/Btbgl-Opswmb-Xga ness/Mental-Health- Conditions http_s://psychcentr Isotera.com/depression/t mg-wwprimzgq-hgczii se-di-qfwgwlpkwh#tr eatments http__s://www.nimh. nih.gov/health/topi cs/mnztug-oahjty-fq dications http__s://www.maribel. org/Amamw-Scqfbf-Ym lness/Treatments/Me eoba-Dmdpxb-Qlbxkzz ions educated on all medications, benefits, side effects and risk, and educated on depression, anxiety, and ADHD, mood d/o and educated on compliance of medications, metabolic and movement d/o education appointment's, continue therapy discussion with patient about course of treatment and patient instructions. education on serotonin syndrome Discussed and educated pt regarding benzodiazepines are generally not intended for prolonged use and that use can cause tolerance, dependence, depression, and associated memory issues including dementias (this list is not exhaustive). Benzodiazepine use is generally not recommended concurrently with pain medications and/or other controlled substances educated on all medications, benefits, side effects and risk, and educated on depression, anxiety, and ADHD, mood d/o and educated on compliance of medications, metabolic and movement d/o education appointment is, continue therapy discussion with patient about course of treatment and patient instructions. education on serotonin syndrome SSRI/SNRI side effects discussed including but not limited to, gastric upset, nausea, vomiting, diarrhea and/or constipation, weight changes, sexual side effects including loss of libido, increased suicidal thoughts/behaviors in children and young adults, and serotonin syndrome. Second generation antipsychotics (SGAs) have metabolic syndrome issues with weight gain, increase in prolactin, increased waist circumference, increased lipids, and increased glucose. Thus routine monitoring of weight, metabolic labs, etc. is indicated. A general rank ordering of antipsychotics that have the greatest to the least risk of metabolic effects is olanzapine, quetiapine, risperidone, ziprasidone, and aripiprazole. However, weight gain can occur with all of these drugs and considerable variability exists among patients receiving the same drug regarding the risk of metabolic effects. Anti-psychotic agents not only increase the risk of metabolic disorder, they also increase the risk of CVA, akathisia, and movement disorders including EPS or tardive dyskinesia (more common with first generation antipsychotics) and more. 11/13/2024 Bipolar depression (ICD-10 - F31.9) If you are planning on becoming , notify your health care provider so that he/she can best manage your medications. People living with bipolar disorder who wish to become face important decisions. It is important to discuss the risks and benefits of treatment with your doctor and caregivers. [place] has been associated with an increased risk of Ebstein's anomaly, a heart valve defect. Even though data suggest that the risk of Ebstein's anomaly from first trimester use of lithium is very low, an ultrasound of the heart is recommended at 16 to 20 weeks of gestation. [place] levels should be monitored monthly in early and weekly near delivery. Do not stop taking lithium without first speaking to your health care provider. Discontinuing mood stabilizer medications during has been associated with a significant increase in symptom relapse. If an overdose occurs call your doctor or 911. You may need urgent medical care. You may also contact the poison control center at . A specific treatment to reverse the effects of lithium does not exist, but there are treatments to decrease the effects of the medication. Only a doctor can determine if you require treatment. Avoid drinking alcohol or using illegal drugs while you are taking lithium. They may decrease the benefits (e.g., worsen your condition) and increase adverse effects (e.g., sedation) of the medication. Avoid low sodium diets and dehydration because this can increase the risk of lithium toxicity. Avoid over the counter and prescription pain medications that contain nonsteroidal anti-inflammatory medications (NSAIDS) such as ibuprofen (Motrin, Advil) or naproxen (Aleve, Naprosyn) because these medications can increase the risk of toxicity from lithium. Avoid excessive intake of caffeinated beverages, such as coffee, tea, cola or energy drinks, since these may decrease levels of lithium and decrease effectiveness of the medication. Discontinuing caffeine use may increase lithium levels. Consult your health care provider before reducing or stopping caffeine use. What are the possible side effects of lithium? Common side effects Headache Nausea or vomiting Diarrhea Dizziness or drowsiness Changes in appetite Hand tremors Dry mouth Increased thirst Increased urination Thinning of hair or hair loss Acne-like rash Rare/Serious side effects Signs of lithium toxicity include severe nausea and vomiting, severe hand tremors, confusion, vision changes, and unsteadiness while standing or walking. These symptoms need to be addressed immediately with a medical doctor to ensure your lithium level is not dangerously high. In rare cases, lithium may lead to a reversible condition known as diabetes insipidus. If this occurs you would notice a significant increase in thirst and how much fluid you drink and how much you urinate. Talk to your doctor if you notice you are urinating more frequently than usual. Are There Any Risks For Taking [place] For Long Periods Of Time? Hypothyroidism (low levels of thyroid hormone) may occur with long-term lithium use. Rare kidney problems have been associated with long-term use of lithium. The risk increases with high levels of lithium. Your doctor will monitor your kidney function at routine check-ups to ensure this does not occur. Summary of Black Box Warnings [place] Toxicity [place] toxicity is closely related to lithium blood levels and can occur at doses close to therapeutic levels; lithium levels should be monitored closely when starting the medication or if individuals experience side effects of the medication. 1. Anxiety -a. Patient reports anxiety level with intrusive thoughts and fear of night and sleep, and being alone discuss making list of thoughts, goals, plans and place in action discuss activity for day sleep hygiene education continue therapy . discuss and educated on all rx Decrease Vistaril 10 mg three time a day for anxiety- reported 25 mg dose more on edge - therapy continue- discuss DBT/CBT therapy discuss IOP program discuss journaling, coping skills, and identify triggers insurance requires 30 days at a time with refills 2. OCD A. fluvoxamine to 100mg. - anxiety and OCD- helping B. Monitor medication response. Encourage suicide hotline (549) use if needed.. advised when to seek emergency services. 3. Bipolar Disorder educated on therapy and CBT/DBT. ED- will work on situational stressors and fears in therapy Educated on proper use light box and not to stay in basement in day and come upstairs in day and open curtains, and outside help depression - lithium and Depakote for manic and depression - reported tolerating well and helping mood. Continue Depakote 500 mg BID lithium 150 mg twice a day hx r/t eduardo s/s at once a day and improved and monitor tremors in hands - labs 09/30 [place] 0.3 Depakote 33.6 Discuss Gene sight and Invega for Bipolar to control symptoms - Invega 3 mg daily continue discuss and educated on Invega injections for near future- Risk- Depakote can cause major congenital malformations incl. neural tube defects, decr. IQ scores, neurodevelopmental disorders after in utero exposure; contraindicated for migraine prophylaxis use in and women of reproductive potential w/o effective contraception; should not be used for epilepsy or bipolar disorder use in and women planning to become unless other tx options have failed or are unacceptable; women should use effective contraception during tx plan to taper off [place] r/t tremors - educated on labs for [place] and Depakote level.- [facility] . Follow up MIRELA and therapy scheduled- will make list of concerns for therapy and work on situational stressors, fears, and emotions in therapy labs completed 09/30 Gene sight reviewed and Abilify may need to be decrease in future - patient reported been working well Tubal 05/30/24- 3. Insomnia - Reports sleep apnea -no CPAP presently not using- plan on getting new CPAP- PCP ordered- still waiting on CPAP 11/13/24 - Plan: a.. sleep hygiene b. Continue melatonin 30 min before bed. c. melatonin 5-10 mg OTC d. Monitor sleep quality. discuss sleep hygeine habits 4. Suicidal Ideation- stable - Reports no passive suicidal thoughts - Denies plan/intent. a. Close monitoring. b. Encourage [place]/[employer] hotline use if needed. c. Follow up MIRELA and seeing therapist e. advised to go to the emergency room if thoughts get worse or unmanageable. 5. OCD- thoughts and behaviors fluvoxamine to 100mg. 6.ADHD Comination hx since childhood and rx at childhood and adult LIDIA-AE 2 TEST Reviewed test results are congruent for ADHD combination hx Wellbutrin 300 mg dose - SI and eduardo discuss and educated on non-stimulates and stimualtes reviewed Gene sight - Vyvanse, Dextroamphetamine, and Adderall has no proven genetic markers Focalin and Concerta moderate gene- drug interaction and genotype may impact drug mechanism of action and result in moderate reduce efficacy discuss and educated Guanfacine 1 mg daily in am- reported not helping- Qelbree- Moderate gene interaction- serum levls may be too low and lower doses may be needed Straterra- significant gene and drug interaction- serum levels too high and lower dose may be needed, CYP2D6 indicate increase side effects, but also greater symptom improvement with those find tx toleratable, potential gene interaction ADHD stimulates education Discuss with patient risk of misuse, abuse, and addiction before prescribing stimulant medicines. 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 Educate patients and their families on these serious risks, proper storage of the medicine, and proper disposal of any unused medicine. Educated patient will monitor Throughout treatment, regularly assess and monitor them for signs and symptoms of nonmedical use, addiction, and potential diversion, which may be evidenced by more frequent renewal. requests than warranted by the prescribed dosage. Random [facility] [place] prescription reviewed local pharmacy in [place], no early refills on control substance educated on non-stimulate and stimulates - Plan: Send refill to [facility] need 30 days at a time r/t insurance Gene Sight discuss Follow up MIRELA and therapy scheduled- will make list of concerns for therapy and work on situational stressors, fears, and emotions in therapy educated on cannabis use as it can negatively impact mood, motivation, anxiety, sleep, focus/concentration /memory (vigilance, elasticity, processing and attention); can also contribute to development of psychosis. Cannabis/marijuana information: http_s://shaheed.nih.g ov/publications/janice gfacts/cannabis-mar ijuana http_s://www.Weight Wins/cannabis- jub-bizkdzks-hadezu avinash-adhd/ http_s://www.maribel.o /Hsnrm-Llooyj-Bbu ness/Mental-Health- Conditions http_s://psych5 CUPS and some sugarr Isotera.Safecare/depression/t ym-weyczdpoe-lvorak qt-sp-byhumtjoos#tr eatments http__s://www.nimh. nih.gov/health/topi cs/wujaev-itrfvn-zz dications http__s://www.maribel. org/Sfdtj-Scamtg-Bl lness/Treatments/Me mwac-Fojnxs-Vofmtno ions educated on all medications, benefits, side effects and risk, and educated on depression, anxiety, and ADHD, mood d/o and educated on compliance of medications, metabolic and movement d/o education appointment's, continue therapy discussion with patient about course of treatment and patient instructions. education on serotonin syndrome Discussed and educated pt regarding benzodiazepines are generally not intended for prolonged use and that use can cause tolerance, dependence, depression, and associated memory issues including dementias (this list is not exhaustive). Benzodiazepine use is generally not recommended concurrently with pain medications and/or other controlled substances educated on all medications, benefits, side effects and risk, and educated on depression, anxiety, and ADHD, mood d/o and educated on compliance of medications, metabolic and movement d/o education appointment is, continue therapy discussion with patient about course of treatment and patient instructions. education on serotonin syndrome SSRI/SNRI side effects discussed including but not limited to, gastric upset, nausea, vomiting, diarrhea and/or constipation, weight changes, sexual side effects including loss of libido, increased suicidal thoughts/behaviors in children and young adults, and serotonin syndrome. Second generation antipsychotics (SGAs) have metabolic syndrome issues with weight gain, increase in prolactin, increased waist circumference, increased lipids, and increased glucose. Thus routine monitoring of weight, metabolic labs, etc. is indicated. A general rank ordering of antipsychotics that have the greatest to the least risk of metabolic effects is olanzapine, quetiapine, risperidone, ziprasidone, and aripiprazole. However, weight gain can occur with all of these drugs and considerable variability exists among patients receiving the same drug regarding the risk of metabolic effects. Anti-psychotic agents not only increase the risk of metabolic disorder, they also increase the risk of CVA, akathisia, and movement disorders including EPS or tardive dyskinesia (more common with first generation antipsychotics) and more. 01/30/2025 FAITH (generalized anxiety disorder) (ICD-10 - F41.1) Learning About Generalized Anxiety Disorder material was published, Generalized Anxiety Disorder: Care Instructions material was published, Learning About Anxiety Disorders material was published Learning About Generalized Anxiety Disorder material was published, Generalized Anxiety Disorder: Care Instructions material was published, Learning About Anxiety Disorders material was published, Learning About Generalized Anxiety Disorder material was published, Generalized Anxiety Disorder: Care Instructions material was published, Learning About Anxiety Disorders material was published, Learning About Transcranial Magnetic Stimulation (TMS) material was published Learning About Generalized Anxiety Disorder material was published, Generalized Anxiety Disorder: Care Instructions material was published, Learning About Anxiety Disorders material was published Learning About Generalized Anxiety Disorder material was published, Generalized Anxiety Disorder: Care Instructions material was published, Learning About Anxiety Disorders material was published, Learning About Generalized Anxiety Disorder material was published, Generalized Anxiety Disorder: Care Instructions material was published, Learning About Anxiety Disorders material was published, Learning About Transcranial Magnetic Stimulation (TMS) material was published 1. Anxiety hx Patient reports anxiety level with intrusive thoughts and fear of night and sleep, and being alone discuss making list of thoughts, goals, plans and place in action discuss activity for day sleep hygiene education continue therapy discuss and educated on all rx Vistaril 10 mg three time a day for anxiety- HX Vistaril reported 25 mg dose more on edge - therapy continue- discuss DBT/CBT therapy discuss IOP program discuss journaling, coping skills, and identify triggers insurance requires 30 days at a time with refills 2. OCD A. fluvoxamine to 100mg. - anxiety and OCD- helping B. Monitor medication response. Encourage suicide hotline (078) use if needed.. advised when to seek emergency services. 3. Bipolar Disorder educated on therapy and CBT/DBT. [facility]- will work on situational stressors and fears in therapy Educated on proper use light box and not to stay in basement in day and come upstairs in day and open curtains, and outside help depression - lithium and Depakote for manic and depression - reported tolerating well and helping mood. Continue Depakote 500 mg BID lithium 150 mg twice a day hx r/t eduardo s/s at once a day and improved and monitor tremors in hands - labs 10/28 [place] 0.3 Depakote 33.6 Discuss Gene sight and Invega for Bipolar to control symptoms - Invega 3 mg daily continue discuss and educated on Invega injections for near future- Risk- Depakote can cause major congenital malformations incl. neural tube defects, decr. IQ scores, neurodevelopmental disorders after in utero exposure; contraindicated for migraine prophylaxis use in and women of reproductive potential w/o effective contraception; should not be used for epilepsy or bipolar disorder use in and women planning to become unless other tx options have failed or are unacceptable; women should use effective contraception during tx plan to taper off [place] r/t tremors - educated on labs for [place] and Depakote level.- [facility] . Follow up MIRELA and therapy scheduled- will make list of concerns for therapy and work on situational stressors, fears, and emotions in therapy labs completed 09/30 Gene sight reviewed and Abilify may need to be decrease in future - patient reported been working well Tubal 05/30/24- 3. Insomnia - Reports sleep apnea -no CPAP presently not using- plan on getting new CPAP- PCP ordered- still waiting on CPAP 11/13/24 - Plan: a.. sleep hygiene b. Continue melatonin 30 min before bed. c. melatonin 5-10 mg OTC d. Monitor sleep quality. discuss sleep hygeine habits 4. Suicidal Ideation- stable - Reports no passive suicidal thoughts - Denies plan/intent. a. Close monitoring. b. Encourage 988/911 hotline use if needed. c. Follow up MIRELA and seeing therapist e. advised to go to the emergency room if thoughts get worse or unmanageable. 5. OCD- thoughts and behaviors fluvoxamine to 100mg. 6.ADHD Comination hx since childhood and rx at childhood and adult LIDIA-AE 2 TEST Reviewed test results are congruent for ADHD combination hx Wellbutrin 300 mg dose - SI and eduardo discuss and educated on non-stimulates and stimualtes reviewed Gene sight - Vyvanse, Dextroamphetamine, and Adderall has no proven genetic markers Focalin and Concerta moderate gene- drug interaction and genotype may impact drug mechanism of action and result in moderate reduce efficacy discuss and educated Guanfacine 1 mg daily in am- reported wants to restart at 1 mg dose since 2 mg dose caused dry mouth- Qelbree- Moderate gene interaction- serum levls may be too low and lower doses may be needed Straterra- significant gene and drug interaction- serum levels too high and lower dose may be needed, CYP2D6 indicate increase side effects, but also greater symptom improvement with those find tx toleratable, potential gene interaction ADHD stimulates education Discuss with patient risk of misuse, abuse, and addiction before prescribing stimulant medicines. 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 Educate patients and their families on these serious risks, proper storage of the medicine, and proper disposal of any unused medicine. Educated patient will monitor Throughout treatment, regularly assess and monitor them for signs and symptoms of nonmedical use, addiction, and potential diversion, which may be evidenced by more frequent renewal. requests than warranted by the prescribed dosage. Random [facility] prescription reviewed local pharmacy in [facility], no early refills on control substance educated on non-stimulate and stimulates - Plan: Send refill to [facility] need 30 days at a time r/t insurance Gene Sight discuss Follow up MIRELA and therapy scheduled- will make list of concerns for therapy and work on situational stressors, fears, and emotions in therapy educated on cannabis use as it can negatively impact mood, motivation, anxiety, sleep, focus/concentration /memory (vigilance, elasticity, processing and attention); can also contribute to development of psychosis. Cannabis/marijuana information: http_s://shaheed.nih.g ov/publications/janice gfacts/cannabis-mar ijuana http_s://www.[employer] Rewards.Safecare/cannabis- pei-pcssesbb-baqgpy avinash-adhd/ http_s://www.maribel.o /Heyyq-Dwhlxe-Qwu ness/Mental-Health- Conditions http_s://psychcentr Isotera.com/depression/t ya-jqyewveee-attjod hn-ft-ybnilosxeu#tr eatments http__s://www.nimh. nih.gov/health/topi cs/xjqita-kcarqb-ar dications http__s://www.maribel. org/Bcdyr-Qbwevp-Sv lness/Treatments/Me nmbo-Phhcuz-Vaarcxg ions educated on all medications, benefits, side effects and risk, and educated on depression, anxiety, and ADHD, mood d/o and educated on compliance of medications, metabolic and movement d/o education appointment's, continue therapy discussion with patient about course of treatment and patient instructions. education on serotonin syndrome Discussed and educated pt regarding benzodiazepines are generally not intended for prolonged use and that use can cause tolerance, dependence, depression, and associated memory issues including dementias (this list is not exhaustive). Benzodiazepine use is generally not recommended concurrently with pain medications and/or other controlled substances educated on all medications, benefits, side effects and risk, and educated on depression, anxiety, and ADHD, mood d/o and educated on compliance of medications, metabolic and movement d/o education appointment is, continue therapy discussion with patient about course of treatment and patient instructions. education on serotonin syndrome SSRI/SNRI side effects discussed including but not limited to, gastric upset, nausea, vomiting, diarrhea and/or constipation, weight changes, sexual side effects including loss of libido, increased suicidal thoughts/behaviors in children and young adults, and serotonin syndrome. Second generation antipsychotics (SGAs) have metabolic syndrome issues with weight gain, increase in prolactin, increased waist circumference, increased lipids, and increased glucose. Thus routine monitoring of weight, metabolic labs, etc. is indicated. A general rank ordering of antipsychotics that have the greatest to the least risk of metabolic effects is olanzapine, quetiapine, risperidone, ziprasidone, and aripiprazole. However, weight gain can occur with all of these drugs and considerable variability exists among patients receiving the same drug regarding the risk of metabolic effects. Anti-psychotic agents not only increase the risk of metabolic disorder, they also increase the risk of CVA, akathisia, and movement disorders including EPS or tardive dyskinesia (more common with first generation antipsychotics) and more. 01/30/2025 Primary insomnia (ICD-10 - F51.01) Insomnia: Care Instructions material was published, Learning About Sleeping Well material was published Insomnia: Care Instructions material was published, Learning About Sleeping Well material was published, Insomnia: Care Instructions material was published, Learning About Sleeping Well material was published Insomnia: Care Instructions material was published, Learning About Sleeping Well material was published Insomnia: Care Instructions material was published, Learning About Sleeping Well material was published, Insomnia: Care Instructions material was published, Learning About Sleeping Well material was published 1. Anxiety hx Patient reports anxiety level with intrusive thoughts and fear of night and sleep, and being alone discuss making list of thoughts, goals, plans and place in action discuss activity for day sleep hygiene education continue therapy discuss and educated on all rx Vistaril 10 mg three time a day for anxiety- HX Vistaril reported 25 mg dose more on edge - therapy continue- discuss DBT/CBT therapy discuss IOP program discuss journaling, coping skills, and identify triggers insurance requires 30 days at a time with refills 2. OCD A. fluvoxamine to 100mg. - anxiety and OCD- helping B. Monitor medication response. Encourage suicide hotline (188) use if needed.. advised when to seek emergency services. 3. Bipolar Disorder educated on therapy and CBT/DBT. [facility]- will work on situational stressors and fears in therapy Educated on proper use light box and not to stay in basement in day and come upstairs in day and open curtains, and outside help depression - lithium and Depakote for manic and depression - reported tolerating well and helping mood. Continue Depakote 500 mg BID lithium 150 mg twice a day hx r/t eduardo s/s at once a day and improved and monitor tremors in hands - labs 10/28 [place] 0.3 Depakote 33.6 Discuss Gene sight and Invega for Bipolar to control symptoms - Invega 3 mg daily continue discuss and educated on Invega injections for near future- Risk- Depakote can cause major congenital malformations incl. neural tube defects, decr. IQ scores, neurodevelopmental disorders after in utero exposure; contraindicated for migraine prophylaxis use in and women of reproductive potential w/o effective contraception; should not be used for epilepsy or bipolar disorder use in and women planning to become unless other tx options have failed or are unacceptable; women should use effective contraception during tx plan to taper off [place] r/t tremors - educated on labs for [place] and Depakote level.- [facility] . Follow up MIRELA and therapy scheduled- will make list of concerns for therapy and work on situational stressors, fears, and emotions in therapy labs completed 09/30 Gene sight reviewed and Abilify may need to be decrease in future - patient reported been working well Tubal 05/30/24- 3. Insomnia - Reports sleep apnea -no CPAP presently not using- plan on getting new CPAP- PCP ordered- still waiting on CPAP 11/13/24 - Plan: a.. sleep hygiene b. Continue melatonin 30 min before bed. c. melatonin 5-10 mg OTC d. Monitor sleep quality. discuss sleep hygeine habits 4. Suicidal Ideation- stable - Reports no passive suicidal thoughts - Denies plan/intent. a. Close monitoring. b. Encourage [email or web address]/838 hotline use if needed. c. Follow up MIRELA and seeing therapist e. advised to go to the emergency room if thoughts get worse or unmanageable. 5. OCD- thoughts and behaviors fluvoxamine to 100mg. 6.ADHD Comination hx since childhood and rx at childhood and adult LIDIA-AE 2 TEST Reviewed test results are congruent for ADHD combination hx Wellbutrin 300 mg dose - SI and eduardo discuss and educated on non-stimulates and stimualtes reviewed Gene sight - Vyvanse, Dextroamphetamine, and Adderall has no proven genetic markers Focalin and Concerta moderate gene- drug interaction and genotype may impact drug mechanism of action and result in moderate reduce efficacy discuss and educated Guanfacine 1 mg daily in am- reported wants to restart at 1 mg dose since 2 mg dose caused dry mouth- Qelbree- Moderate gene interaction- serum levls may be too low and lower doses may be needed Straterra- significant gene and drug interaction- serum levels too high and lower dose may be needed, CYP2D6 indicate increase side effects, but also greater symptom improvement with those find tx toleratable, potential gene interaction ADHD stimulates education Discuss with patient risk of misuse, abuse, and addiction before prescribing stimulant medicines. 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 Educate patients and their families on these serious risks, proper storage of the medicine, and proper disposal of any unused medicine. Educated patient will monitor Throughout treatment, regularly assess and monitor them for signs and symptoms of nonmedical use, addiction, and potential diversion, which may be evidenced by more frequent renewal. requests than warranted by the prescribed dosage. Random [facility] [place] prescription reviewed local pharmacy in [place], no early refills on control substance educated on non-stimulate and stimulates - Plan: Send refill to [facility] need 30 days at a time r/t insurance Gene Sight discuss Follow up MIRELA and therapy scheduled- will make list of concerns for therapy and work on situational stressors, fears, and emotions in therapy educated on cannabis use as it can negatively impact mood, motivation, anxiety, sleep, focus/concentration /memory (vigilance, elasticity, processing and attention); can also contribute to development of psychosis. Cannabis/marijuana information: http_s://shaheed.nih.g ov/publications/janice gfacts/cannabis-mar ijuana http_s://www.Weight Wins/cannabis- dkp-kraphpqd-mtitdr avinash-adhd/ http_s://www.maribel.o rg/Vsuls-Egtpba-Vhb ness/Mental-Health- Conditions http_s://psych5 CUPS and some sugarr Isotera.Safecare/depression/t dy-kpknfxyuo-wepgrc pl-db-bktaprtejj#tr eatments http__s://www.nimh. nih.gov/health/topi cs/ngmhxm-ziewte-qf dications http__s://www.maribel. org/Eiaji-Bspvku-Ea lness/Treatments/Me olfg-Gakqvi-Zdpmvha ions educated on all medications, benefits, side effects and risk, and educated on depression, anxiety, and ADHD, mood d/o and educated on compliance of medications, metabolic and movement d/o education appointment's, continue therapy discussion with patient about course of treatment and patient instructions. education on serotonin syndrome Discussed and educated pt regarding benzodiazepines are generally not intended for prolonged use and that use can cause tolerance, dependence, depression, and associated memory issues including dementias (this list is not exhaustive). Benzodiazepine use is generally not recommended concurrently with pain medications and/or other controlled substances educated on all medications, benefits, side effects and risk, and educated on depression, anxiety, and ADHD, mood d/o and educated on compliance of medications, metabolic and movement d/o education appointment is, continue therapy discussion with patient about course of treatment and patient instructions. education on serotonin syndrome SSRI/SNRI side effects discussed including but not limited to, gastric upset, nausea, vomiting, diarrhea and/or constipation, weight changes, sexual side effects including loss of libido, increased suicidal thoughts/behaviors in children and young adults, and serotonin syndrome. Second generation antipsychotics (SGAs) have metabolic syndrome issues with weight gain, increase in prolactin, increased waist circumference, increased lipids, and increased glucose. Thus routine monitoring of weight, metabolic labs, etc. is indicated. A general rank ordering of antipsychotics that have the greatest to the least risk of metabolic effects is olanzapine, quetiapine, risperidone, ziprasidone, and aripiprazole. However, weight gain can occur with all of these drugs and considerable variability exists among patients receiving the same drug regarding the risk of metabolic effects. Anti-psychotic agents not only increase the risk of metabolic disorder, they also increase the risk of CVA, akathisia, and movement disorders including EPS or tardive dyskinesia (more common with first generation antipsychotics) and more. 10/06/2024 FAITH (generalized anxiety disorder) (ICD-10 - F41.1) Learning About Generalized Anxiety Disorder material was published, Generalized Anxiety Disorder: Care Instructions material was published, Learning About Anxiety Disorders material was published Learning About Generalized Anxiety Disorder material was published, Generalized Anxiety Disorder: Care Instructions material was published, Learning About Anxiety Disorders material was published, Learning About Generalized Anxiety Disorder material was published, Generalized Anxiety Disorder: Care Instructions material was published, Learning About Anxiety Disorders material was published, Learning About Transcranial Magnetic Stimulation (TMS) material was published Learning About Generalized Anxiety Disorder material was published, Generalized Anxiety Disorder: Care Instructions material was published, Learning About Anxiety Disorders material was published Learning About Generalized Anxiety Disorder material was published, Generalized Anxiety Disorder: Care Instructions material was published, Learning About Anxiety Disorders material was published, Learning About Generalized Anxiety Disorder material was published, Generalized Anxiety Disorder: Care Instructions material was published, Learning About Anxiety Disorders material was published, Learning About Transcranial Magnetic Stimulation (TMS) material was published 1. Anxiety -a. Patient reports anxiety level with intrusive thoughts.- therapy b. discuss and educated on all rx Increase Vistaril 25 mg three time a day for anxiety- reported 10 mg dose not helping - therapy continue- discuss DBT/CBT therapy discuss IOP program discuss journaling, coping skills, and identify triggers insurance requires 30 days at a time with refills 2. OCD A. fluvoxamine to 100mg. - anxiety and OCD- B. Monitor medication response. C. Encourage suicide hotline (988) use if needed. D. advised when to seek emergency services. 3. Bipolar Disorder educated on therapy and CBT/DBT. EDMR- will work on situational stressors and fears in therapy Educated on proper use light box and not to stay in basement in day and come upstairs in day and open curtains, and outside help depression - lithium and Depakote for manic and depression - reported tolerating well and helping mood. Continue Depakote 500 mg BID lithium 150 mg twice a day hx r/t eduardo s/s at once a day and improved and monitor tremors in hands - labs 09/30 [place] 0.3 Depakote 33.6 Discuss Gene sight and Invega for Bipolar to control symptoms - Invega 3 mg daily continue discuss and educated on Invega injections for near future- pateint agreed plan to taper off [place] r/t tremors - educated on labs for [place] and Depakote level.- [facility] . Follow up [facility] and therapy scheduled- will make list of concerns for therapy and work on situational stressors, fears, and emotions in therapy labs completed 09/30 Gene sight reviewed and Abilify may need to be decrease in future - patient reported been working well Tubal 05/30/24- 3. Insomnia - Reports sleep apnea -no CPAP presently not using- plan on getting new CPAP- PCP ordered - Plan: a.. sleep hygiene b. Continue melatonin 30min before bed. c. melatonin 3 mg OTC d. Monitor sleep quality. 4. Suicidal Ideation- stable - Reports no passive suicidal thoughts - Denies plan/intent. a. Close monitoring. b. Encourage 988/911 hotline use if needed. c. Follow up [facility] and seeing therapist e. advised to go to the emergency room if thoughts get worse or unmanageable. 5. OCD- thoughts and behaviors fluvoxamine to 100mg. 6.ADHD Comination hx since childhood and rx at childhood and adult LIDIA-AE 2 TEST Reviewed test results are congruent for ADHD combination discuss and educated on non-stimulates and stimualtes reviewed Gene sight - Vyvanse, Dextroamphetamine, and Adderall has no proven genetic markers Focalin and Concerta moderate gene- drug interaction and genotype may impact drug mechanism of action and result in moderate reduce efficacy discuss and educated ] Guanfacine 1 mg daily in am Qelbree- Moderate gene interaction- serum levls may be too low and lower doses may be needed Straterra- significant gene and drug interaction- serum levels too high and lower dose may be needed, CYP2D6 indicate increase side effects, but also greater symptom improvement with those find tx toleratable, potential gene interaction ADHD stimulates education Discuss with patient risk of misuse, abuse, and addiction before prescribing stimulant medicines. 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 Educate patients and their families on these serious risks, proper storage of the medicine, and proper disposal of any unused medicine. Educated patient will monitor Throughout treatment, regularly assess and monitor them for signs and symptoms of nonmedical use, addiction, and potential diversion, which may be evidenced by more frequent renewal. requests than warranted by the prescribed dosage. Random [facility] prescription reviewed local pharmacy in [facility], no early refills on control substance educated on non-stimulate and stimulates - Plan: Send refill to [facility] need 30 days at a time r/t insurance Gene Sight discuss Follow up [facility] and therapy scheduled- will make list of concerns for therapy and work on situational stressors, fears, and emotions in therapy educated on cannabis use as it can negatively impact mood, motivation, anxiety, sleep, focus/concentration /memory (vigilance, elasticity, processing and attention); can also contribute to development of psychosis. Cannabis/marijuana information: http_s://shaheed.nih.g ov/publications/janice gfacts/cannabis-mar ijuana http_s://www.[employer].Safecare/cannabis- dex-lbjfiodl-xqlhjj avinash-adhd/ http_s://www.maribel.o rg/Ztrvp-Zhzfku-Utm ness/Mental-Health- Conditions http_s://psychcentr al.com/depression/t pz-gcffplnrz-cgbeif td-ib-gpntkrshrb#tr eatments http__s://www.nimh. nih.gov/health/topi cs/joytjh-daswhp-qb dications http__s://www.maribel. org/Mwwbd-Jgydjj-Iv lness/Treatments/La wcnp-Htyxll-Zshgewd ions educated on all medications, benefits, side effects and risk, and educated on depression, anxiety, and ADHD, mood d/o and educated on compliance of medications, metabolic and movement d/o education appointment's, continue therapy discussion with patient about course of treatment and patient instructions. education on serotonin syndrome Discussed and educated pt regarding benzodiazepines are generally not intended for prolonged use and that use can cause tolerance, dependence, depression, and associated memory issues including dementias (this list is not exhaustive). Benzodiazepine use is generally not recommended concurrently with pain medications and/or other controlled substances educated on all medications, benefits, side effects and risk, and educated on depression, anxiety, and ADHD, mood d/o and educated on compliance of medications, metabolic and movement d/o education appointment is, continue therapy discussion with patient about course of treatment and patient instructions. education on serotonin syndrome SSRI/SNRI side effects discussed including but not limited to, gastric upset, nausea, vomiting, diarrhea and/or constipation, weight changes, sexual side effects including loss of libido, increased suicidal thoughts/behaviors in children and young adults, and serotonin syndrome. Second generation antipsychotics (SGAs) have metabolic syndrome issues with weight gain, increase in prolactin, increased waist circumference, increased lipids, and increased glucose. Thus routine monitoring of weight, metabolic labs, etc. is indicated. A general rank ordering of antipsychotics that have the greatest to the least risk of metabolic effects is olanzapine, quetiapine, risperidone, ziprasidone, and aripiprazole. However, weight gain can occur with all of these drugs and considerable variability exists among patients receiving the same drug regarding the risk of metabolic effects. Anti-psychotic agents not only increase the risk of metabolic disorder, they also increase the risk of CVA, akathisia, and movement disorders including EPS or tardive dyskinesia (more common with first generation antipsychotics) and more. 11/13/2024 FAITH (generalized anxiety disorder) (ICD-10 - F41.1) Learning About Generalized Anxiety Disorder material was published, Generalized Anxiety Disorder: Care Instructions material was published, Learning About Anxiety Disorders material was published Learning About Generalized Anxiety Disorder material was published, Generalized Anxiety Disorder: Care Instructions material was published, Learning About Anxiety Disorders material was published, Learning About Generalized Anxiety Disorder material was published, Generalized Anxiety Disorder: Care Instructions material was published, Learning About Anxiety Disorders material was published, Learning About Transcranial Magnetic Stimulation (TMS) material was published Learning About Generalized Anxiety Disorder material was published, Generalized Anxiety Disorder: Care Instructions material was published, Learning About Anxiety Disorders material was published Learning About Generalized Anxiety Disorder material was published, Generalized Anxiety Disorder: Care Instructions material was published, Learning About Anxiety Disorders material was published, Learning About Generalized Anxiety Disorder material was published, Generalized Anxiety Disorder: Care Instructions material was published, Learning About Anxiety Disorders material was published, Learning About Transcranial Magnetic Stimulation (TMS) material was published 1. Anxiety -a. Patient reports anxiety level with intrusive thoughts and fear of night and sleep, and being alone discuss making list of thoughts, goals, plans and place in action discuss activity for day sleep hygiene education continue therapy . discuss and educated on all rx Decrease Vistaril 10 mg three time a day for anxiety- reported 25 mg dose more on edge - therapy continue- discuss DBT/CBT therapy discuss IOP program discuss journaling, coping skills, and identify triggers insurance requires 30 days at a time with refills 2. OCD A. fluvoxamine to 100mg. - anxiety and OCD- helping B. Monitor medication response. Encourage suicide hotline (510) use if needed.. advised when to seek emergency services. 3. Bipolar Disorder educated on therapy and CBT/DBT. EDMR- will work on situational stressors and fears in therapy Educated on proper use light box and not to stay in basement in day and come upstairs in day and open curtains, and outside help depression - lithium and Depakote for manic and depression - reported tolerating well and helping mood. Continue Depakote 500 mg BID lithium 150 mg twice a day hx r/t eduardo s/s at once a day and improved and monitor tremors in hands - labs 09/30 [place] 0.3 Depakote 33.6 Discuss Gene sight and Invega for Bipolar to control symptoms - Invega 3 mg daily continue discuss and educated on Invega injections for near future- Risk- Depakote can cause major congenital malformations incl. neural tube defects, decr. IQ scores, neurodevelopmental disorders after in utero exposure; contraindicated for migraine prophylaxis use in and women of reproductive potential w/o effective contraception; should not be used for epilepsy or bipolar disorder use in and women planning to become unless other tx options have failed or are unacceptable; women should use effective contraception during tx plan to taper off [place] r/t tremors - educated on labs for [place] and Depakote level.- [facility] . Follow up MIRELA and therapy scheduled- will make list of concerns for therapy and work on situational stressors, fears, and emotions in therapy labs completed 09/30 Gene sight reviewed and Abilify may need to be decrease in future - patient reported been working well Tubal 05/30/24- 3. Insomnia - Reports sleep apnea -no CPAP presently not using- plan on getting new CPAP- PCP ordered- still waiting on CPAP 11/13/24 - Plan: a.. sleep hygiene b. Continue melatonin 30 min before bed. c. melatonin 5-10 mg OTC d. Monitor sleep quality. discuss sleep hygeine habits 4. Suicidal Ideation- stable - Reports no passive suicidal thoughts - Denies plan/intent. a. Close monitoring. b. Encourage 616/415 hotline use if needed. c. Follow up MIRELA and seeing therapist e. advised to go to the emergency room if thoughts get worse or unmanageable. 5. OCD- thoughts and behaviors fluvoxamine to 100mg. 6.ADHD Comination hx since childhood and rx at childhood and adult LIDIA-AE 2 TEST Reviewed test results are congruent for ADHD combination hx Wellbutrin 300 mg dose - SI and eduardo discuss and educated on non-stimulates and stimualtes reviewed Gene sight - Vyvanse, Dextroamphetamine, and Adderall has no proven genetic markers Focalin and Concerta moderate gene- drug interaction and genotype may impact drug mechanism of action and result in moderate reduce efficacy discuss and educated Guanfacine 1 mg daily in am- reported not helping- Qelbree- Moderate gene interaction- serum levls may be too low and lower doses may be needed Straterra- significant gene and drug interaction- serum levels too high and lower dose may be needed, CYP2D6 indicate increase side effects, but also greater symptom improvement with those find tx toleratable, potential gene interaction ADHD stimulates education Discuss with patient risk of misuse, abuse, and addiction before prescribing stimulant medicines. 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 Educate patients and their families on these serious risks, proper storage of the medicine, and proper disposal of any unused medicine. Educated patient will monitor Throughout treatment, regularly assess and monitor them for signs and symptoms of nonmedical use, addiction, and potential diversion, which may be evidenced by more frequent renewal. requests than warranted by the prescribed dosage. Random [facility] [place] prescription reviewed local pharmacy in [place], no early refills on control substance educated on non-stimulate and stimulates - Plan: Send refill to [facility] need 30 days at a time r/t insurance Gene Sight discuss Follow up MIRELA and therapy scheduled- will make list of concerns for therapy and work on situational stressors, fears, and emotions in therapy educated on cannabis use as it can negatively impact mood, motivation, anxiety, sleep, focus/concentration /memory (vigilance, elasticity, processing and attention); can also contribute to development of psychosis. Cannabis/marijuana information: http_s://shaheed.nih.g ov/publications/janice gfacts/cannabis-mar ijuana http_s://www.Weight Wins/cannabis- bvx-ilnrndox-fnkzfk avinash-adhd/ http_s://www.maribel.o rg/Pchrz-Aacsxr-Dyw ness/Mental-Health- Conditions http_s://psych5 CUPS and some sugarr Isotera.com/depression/t zl-nykecgnos-zolwik qn-hh-mpvucptesc#tr eatments http__s://www.nimh. nih.gov/health/topi cs/obodhq-swjfsv-hs dications http__s://www.maribel. org/Kuajv-Fpwzdp-Ts lness/Treatments/Me dzbh-Avscut-Pmmqech ions educated on all medications, benefits, side effects and risk, and educated on depression, anxiety, and ADHD, mood d/o and educated on compliance of medications, metabolic and movement d/o education appointment's, continue therapy discussion with patient about course of treatment and patient instructions. education on serotonin syndrome Discussed and educated pt regarding benzodiazepines are generally not intended for prolonged use and that use can cause tolerance, dependence, depression, and associated memory issues including dementias (this list is not exhaustive). Benzodiazepine use is generally not recommended concurrently with pain medications and/or other controlled substances educated on all medications, benefits, side effects and risk, and educated on depression, anxiety, and ADHD, mood d/o and educated on compliance of medications, metabolic and movement d/o education appointment is, continue therapy discussion with patient about course of treatment and patient instructions. education on serotonin syndrome SSRI/SNRI side effects discussed including but not limited to, gastric upset, nausea, vomiting, diarrhea and/or constipation, weight changes, sexual side effects including loss of libido, increased suicidal thoughts/behaviors in children and young adults, and serotonin syndrome. Second generation antipsychotics (SGAs) have metabolic syndrome issues with weight gain, increase in prolactin, increased waist circumference, increased lipids, and increased glucose. Thus routine monitoring of weight, metabolic labs, etc. is indicated. A general rank ordering of antipsychotics that have the greatest to the least risk of metabolic effects is olanzapine, quetiapine, risperidone, ziprasidone, and aripiprazole. However, weight gain can occur with all of these drugs and considerable variability exists among patients receiving the same drug regarding the risk of metabolic effects. Anti-psychotic agents not only increase the risk of metabolic disorder, they also increase the risk of CVA, akathisia, and movement disorders including EPS or tardive dyskinesia (more common with first generation antipsychotics) and more. 05/15/2024 Primary insomnia (ICD-10 - F51.01) Insomnia: Care Instructions material was published, Learning About Sleeping Well material was published Insomnia: Care Instructions material was published, Learning About Sleeping Well material was published 1. Anxiety -a. Patient reports anxiety level with intrusive thoughts.- therapy b. discuss and educated on Vistaril 10 mg three tmes a day PRN for anxiety and may take 1/2 dose (5 mg) in day if make tired - therapy continue - Plan: a. b. fluvoxamine to 100mg. - anxiety and OCD c. Monitor medication response. d. Encourage suicide hotline (963) use if needed. e. advised when to seek emergency services. 2. Bipolar Disorder - lithium and Depakote for manic and depression - reported tolerating well and helping mood. - No changes - Plan: a. Continue Depakote 500mg BID and lithium 150mg BID - educated on labs for [place] and Depakote level. b. Follow up MIRELA and therapy scheduled C. Abilify 30 mg at bedtime- patient reported has not picked up yet - prescribed 05/05/24 from [facility] walk in clinic planned Tubal 05/29/24 3. Insomnia - Reports 9-10 hours - Plan: a.. sleep hygiene b. Continue melatonin 30min before bed. c. melatonin 3 mg OTC d. Monitor sleep quality. Trazodone 50 mg PRN 4. Suicidal Ideation- stable - Reports no passive suicidal thoughts - Denies plan/intent. - Plan: a. Close monitoring. b. Encourage 988 hotline use if needed. c. Follow up [facility]RELA and seeing therapist e. advised to go to the emergency room if thoughts get worse or unmanageable. 5. OCD- increase thoughts and behaviors on 50 mg dose A. increase fluvoxamine to 100mg. 6. Appetite normal now - Reports constant hunger. - Plan: a. Monitor appetite/weight. b. Discuss healthy eating habits. c. heart healthy diet and excise 7. Headache - Reports headaches, improved - Plan: see PCP patient will schedule appt and discuss HTN a. Monitor frequency/severity. b. Consider medication side effects. c. Recommend OTC relief as needed. d. sleep hygiene education 8. Medication Refill - Plan: Send refill to [facility] Recommend decrease/stop cannabis use as it can negatively impact mood, motivation, anxiety, sleep, focus/concentration /memory (vigilance, elasticity, processing and attention); can also contribute to development of psychosis. Cannabis/marijuana information: http_s://shaheed.nih.g ov/publications/janice gfacts/cannabis-mar ijuana http_s://www.Weight Wins/cannabis- ybl-yksagiss-stdvbs avinash-adhd/ http_s://www.maribel.o rg/Eodgm-Ikrpzf-Mrd ness/Mental-Health- Conditions http_s://psychcentr Isotera.com/depression/t fq-wawvnrcwo-zegrjc fh-ik-vbjklvzodw#tr eatments http__s://www.nimh. nih.gov/health/topi cs/uevrlm-ffylla-rp dications http__s://www.maribel. org/Vkvoc-Vztgpf-Kp lness/Treatments/Me ftdy-Tgowxw-Enbzzmy ions educated on all medications, benefits, side effects and risk, and educated on depression, anxiety, and ADHD, mood d/o and educated on compliance of medications, metabolic and movement d/o education appointment's, continue therapy discussion with patient about course of treatment and patient instructions. education on serotonin syndrome Discussed and educated pt regarding benzodiazepines are generally not intended for prolonged use and that use can cause tolerance, dependence, depression, and associated memory issues including dementias (this list is not exhaustive). Benzodiazepine use is generally not recommended concurrently with pain medications and/or other controlled substances educated on all medications, benefits, side effects and risk, and educated on depression, anxiety, and ADHD, mood d/o and educated on compliance of medications, metabolic and movement d/o education appointment is, continue therapy discussion with patient about course of treatment and patient instructions. education on serotonin syndrome SSRI/SNRI side effects discussed including but not limited to, gastric upset, nausea, vomiting, diarrhea and/or constipation, weight changes, sexual side effects including loss of libido, increased suicidal thoughts/behaviors in children and young adults, and serotonin syndrome. Second generation antipsychotics (SGAs) have metabolic syndrome issues with weight gain, increase in prolactin, increased waist circumference, increased lipids, and increased glucose. Thus routine monitoring of weight, metabolic labs, etc. is indicated. A general rank ordering of antipsychotics that have the greatest to the least risk of metabolic effects is olanzapine, quetiapine, risperidone, ziprasidone, and aripiprazole. However, weight gain can occur with all of these drugs and considerable variability exists among patients receiving the same drug regarding the risk of metabolic effects. Anti-psychotic agents not only increase the risk of metabolic disorder, they also increase the risk of CVA, akathisia, and movement disorders including EPS or tardive dyskinesia (more common with first generation antipsychotics) and more. 04/10/2024 FAITH (generalized anxiety disorder) (ICD-10 - F41.1) Learning About Generalized Anxiety Disorder material was published, Generalized Anxiety Disorder: Care Instructions material was published, Learning About Anxiety Disorders material was published, Learning About Generalized Anxiety Disorder material was published, Generalized Anxiety Disorder: Care Instructions material was published, Learning About Anxiety Disorders material was published 1. Bipolar Disorder - Manic Episode: discuss Depakote for eduardo and educated on rx will add Depakote ER 250 MG TWICE a day for Bipolar eduardo - educated on labs with Depakote and BCP presently on planning on tubal plan to titrate off [place] next visit Risk- Depakote can cause major congenital malformations incl. neural tube defects, decr. IQ scores, neurodevelopmental disorders after in utero exposure; contraindicated for migraine prophylaxis use in and women of reproductive potential w/o effective contraception; should not be used for epilepsy or bipolar disorder use in and women planning to become unless other tx options have failed or are unacceptable; women should use effective contraception during tx - [place] dose was reduced to 300 mg twice daily due to worsening tremor; however, this has led to a manic episode continue over last 6 weeks aripiprazole 20 mg at bedtime recently increased -monitor lithium level - Encourage the patient to avoid excessive caffeine intake, such as energy drinks, as this may exacerbate eduardo. - Reevaluate the need for medication adjustments if manic symptoms persist or worsen. 3. Depression: - Continue fluvoxamine 100 mg at bedtime 4. Anxiety: - aripiprazole 20 mg at bedtime as prescribed for anxiety management. 5. Insomnia: - Continue estazolam, melatonin, and trazodone 50 mg as prescribed for sleep management. - Monitor sleep patterns and adjust medications if needed. hx heart issues rx hx Vraylar, Abilify, Caplyta (muscle weakness), [place] (tremors) Fluvoxamine, Clomipramine, estazolam, melatonin, and trazodone 50 mg 6. Impulsive Spending: - Encourage the patient to develop strategies for managing impulsive spending, such as seeking support from a therapist or financial counselor. - Monitor the impact of lithium on impulsive behavior and adjust the dose if necessary. labs reviewd 01/27 scanned into chart Follow-up: 04/24/2024 Primary insomnia (ICD-10 - F51.01) Insomnia: Care Instructions material was published, Learning About Sleeping Well material was published, Insomnia: Care Instructions material was published, Learning About Sleeping Well material was published 1. Bipolar Disorder - discuss Depakote for eduardo and educated on rx will increase Depakote ER 500 MG TWICE a day for Bipolar eduardo - improved on Depakote since 04/10/24 (out of eduardo) educated on labs with Depakote and BCP presently on planning on tubal plan to titrate off [place] in near future Risk- Depakote can cause major congenital malformations incl. neural tube defects, decr. IQ scores, neurodevelopmental disorders after in utero exposure; contraindicated for migraine prophylaxis use in and women of reproductive potential w/o effective contraception; should not be used for epilepsy or bipolar disorder use in and women planning to become unless other tx options have failed or are unacceptable; women should use effective contraception during tx - [place] will decrease dose to 150 mg twice daily aripiprazole 20 mg at bedtime -monitor lithium level and Depakote levels - Encourage the patient to avoid excessive caffeine intake, such as energy drinks, as this may exacerbate eduardo. - Reevaluate the need for medication adjustments if manic symptoms persist or worsen. 3. Depression: - Continue fluvoxamine 100 mg at bedtime 4. Anxiety: - aripiprazole 20 mg at bedtime as prescribed for anxiety management. 5. Insomnia: - Continue estazolam, melatonin, and trazodone 50 mg as prescribed for sleep management. - Monitor sleep patterns and adjust medications if needed. hx heart issues rx hx Vraylar, Abilify, Caplyta (muscle weakness), [place] (tremors) Fluvoxamine, Clomipramine, estazolam, melatonin, and trazodone 50 mg 6. Impulsive Spending: with eduardo - improved with Depakote - Encourage the patient to develop strategies for managing impulsive spending, such as seeking support from a therapist or financial counselor. - Monitor the impact of lithium and Depakote, Abilify on impulsive behavior and adjust the dose if necessary. labs reviewd 01/27 scanned into chart Follow-up: 2 weeks 05/05/2024 Primary insomnia (ICD-10 - F51.01) 1. Anxiety - Patient reports 02/12 anxiety level with intrusive thoughts. - Medications don't seem effective. - Plan: a. increase aripiprazole to 30mg. b. Decrease fluvoxamine to 50mg. c. Monitor medication response. d. Encourage suicide hotline (578) use if needed. e. advised when to seek emergency services. 2. Bipolar Disorder - Transitioning from lithium to Depakote for manic depression. - No changes noticed with adjustment. - Plan: a. Continue Depakote 500mg BID and lithium 150mg BID until therapeutic Depakote level. b. Follow up on to assess progress. 3. Insomnia - Reports 9-10 hours sleep with 2am awakenings. Trazodone not helping. - Plan: a. Discontinue trazodone. b. Continue melatonin 30min before bed. c. Add melatonin at 2am if awake. d. Monitor sleep quality. 4. Suicidal Ideation - Reports passive suicidal thoughts 4x/day. - Denies plan/intent. - Plan: a. Close monitoring. b. Encourage 988 hotline use if needed. c. Follow up on for medication effect. e. advised to go to the emergency room if thoughts get worse or unmanageable. 5. Increased Appetite - Reports constant hunger. - Plan: a. Monitor appetite/weight. b. Discuss healthy eating habits. 6. Headache - Reports headaches, not severe. - Plan: a. Monitor frequency/severity. b. Consider medication side effects. c. Recommend OTC relief as needed. 7. Medication Refill - Fluvoxamine refill needed, 3 pills left. - increase Aripiprazole to 30 mg HS. - Plan: Send refill to [facility]. Follow-up - Appointment with [facility] on . - Plan: Continue monitoring progress and medication response. 03/13/2024 FAITH (generalized anxiety disorder) (ICD-10 - F41.1) Learning About Generalized Anxiety Disorder material was published, Generalized Anxiety Disorder: Care Instructions material was published, Learning About Anxiety Disorders material was published, Learning About Generalized Anxiety Disorder material was published, Generalized Anxiety Disorder: Care Instructions material was published, Learning About Anxiety Disorders material was published mixed Bipolar- patient had a good response to Abilify 20 mg 2013 Increase Abilify 15 mg daily for Bipolar eduardo - educated on rx Decrease [place] 300 mg twice a day- seen neuropsychiatry- r/o hand tremors to [place] Continue therapy denies SI/HI no plans or intent educated on 988 and 911 go to nearest ER if have passive/active SI or plan or intent hx [place] toxicity at higher doses [place] education [place] use reviewed. Risks include risks of toxicity, arrhythmias, cognitive impairment, changes in muscle coordination, weight gain, thyroid and parathyroid changes, polydipsia and polyuria, alopecia, tremor and teratogenicity ( defects). Recommend avoid in females (use contraception consistently). Routine lab monitoring may be required. Patient consented to treatment. Indications: acute eduardo (euphoric eduardo), bipolar prophylaxis, bipolar depression treatment or augmentation, unipolar depression as augmentation with antidepressants Average dose = I,500 mg/day, target serum level 0.8 [place] is known to reduce risk of suicide. 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,000 Renal: chronic renal insufficiency (after 10-20 years), acute renal failure, polyuria occurs in 50-70% [lithium antagonizes anti-diuretic hormone (ADH)], diabetes insipidus in 10% (treat with amiloride) Drug-drug interactions: increase in lithium: NSAIDs, GRZEGORZ inhibitors, angiotensin II antagonists Anxiety- monitor in therapy primary Insomnia - Trazodone 50 mg at bedtime OCD- Patient had cardiac hx and 3 surgeries decrease Clomipramine 25 mg for a month plan to stop in a month discuss and educated on increase Fluxoxamine 100 mg daily for OCD- tolerating well no s/e Monitor for SI http_s://www.[facility].n ih.gov/health/topic s/gpubba-kitygl-nxw ications http_s://www.[facility].o rg/Cdpir-Ngznsj-Fpz ness/Treatments/Men hwm-Amgsry-Mhuapzmm ons discuss and educated pharmacogenomic panel- patient will have test next visit Patient educated on all medications including potential benefits, side effects, risks. Educated on proper dosing schedule and importance of compliance educated on all medications, benefits, side effects and risk, and educated on depression, anxiety, and ADHD, mood d/o and educated on compliance of medications, metabolic and movement d/o education appointment is, continue therapy discussion with patient about course of treatment and patient instructions. education on serotonin syndrome SSRI/SNRI side effects discussed including but not limited to, gastric upset, nausea, vomiting, diarrhea and/or constipation, weight changes, sexual side effects including loss of libido, increased suicidal thoughts/behaviors in children and young adults, and serotonin syndrome. Second generation antipsychotics (SGAs) have metabolic syndrome issues with weight gain, increase in prolactin, increased waist circumference, increased lipids, and increased glucose. Thus routine monitoring of weight, metabolic labs, etc. is indicated. A general rank ordering of antipsychotics that have the greatest to the least risk of metabolic effects is olanzapine, quetiapine, risperidone, ziprasidone, and aripiprazole. However, weight gain can occur with all of these drugs and considerable variability exists among patients receiving the same drug regarding the risk of metabolic effects. Anti-psychotic agents not only increase the risk of metabolic disorder, they also increase the risk of CVA, akathisia, and movement disorders including EPS or tardive dyskinesia (more common with first generation antipsychotics) and more. Medication Management and Follow-Up - Plan: - Schedule follow-up appointments every 1-3 months to monitor the patient's response to the medication regimen. - Reinforce the importance of avoiding recreational drug use due to potential neurotoxicity and interactions with prescribed medications. 04/01/2024 FAITH (generalized anxiety disorder) (ICD-10 - F41.1) Learning About Generalized Anxiety Disorder material was published, Generalized Anxiety Disorder: Care Instructions material was published, Learning About Anxiety Disorders material was published, Learning About Generalized Anxiety Disorder material was published, Generalized Anxiety Disorder: Care Instructions material was published, Learning About Anxiety Disorders material was published 1. Bipolar Disorder - Manic Episode: - [place] dose was reduced to 300 mg twice daily due to worsening tremor; however, this has led to a manic episode continue over last month increase aripiprazole 20 mg at bedtime -monitor lithium level - Encourage the patient to avoid excessive caffeine intake, such as energy drinks, as this may exacerbate eduardo. - Reevaluate the need for medication adjustments if manic symptoms persist or worsen. 3. Depression: - Continue fluvoxamine 100 mg at bedtime and d/c clomipramine 25 mg as prescribed. 4. Anxiety: - increase aripiprazole 20 mg at bedtime as prescribed for anxiety management. 5. Insomnia: - Continue estazolam, melatonin, and trazodone 50 mg as prescribed for sleep management. - Monitor sleep patterns and adjust medications if needed. hx heart issues rx hx Vraylar, Abilify, Caplyta (muscle weakness), [place] (tremors) Fluvoxamine, Clomipramine, estazolam, melatonin, and trazodone 50 mg 6. Impulsive Spending: - Encourage the patient to develop strategies for managing impulsive spending, such as seeking support from a therapist or financial counselor. - Monitor the impact of lithium on impulsive behavior and adjust the dose if necessary. Follow-up: 03/19/2024 Primary insomnia (ICD-10 - F51.01) Insomnia: Care Instructions material was published, Learning About Sleeping Well material was published, Insomnia: Care Instructions material was published, Learning About Sleeping Well material was published 1. Bipolar Disorder - Manic Episode: - [place] dose was reduced to 300 mg twice daily due to worsening tremor; however, this has led to a manic episode. -monitor lithium level - Encourage the patient to avoid excessive caffeine intake, such as energy drinks, as this may exacerbate eduardo. - Reevaluate the need for medication adjustments if manic symptoms persist or worsen. 3. Depression: - Current depression score is 5 out of 10, an improvement from the usual 8 or 9. - Continue fluvoxamine 100 mg at bedtime and clomipramine 25 mg as prescribed. - Collaborate with Abby to adjust antidepressant medications if needed, ensuring they do not push the patient back into eduardo. 4. Anxiety: - Continue aripiprazole 15 mg at bedtime as prescribed for anxiety management. 5. Insomnia: - Continue estazolam, melatonin, and trazodone 50 mg as prescribed for sleep management. - Monitor sleep patterns and adjust medications if needed. 6. Impulsive Spending: - Encourage the patient to develop strategies for managing impulsive spending, such as seeking support from a therapist or financial counselor. - Monitor the impact of lithium on impulsive behavior and adjust the dose if necessary. Follow-up: - Schedule a follow-up appointment with Abby to reevaluate the patient's progress and make any necessary medication adjustments. 02/22/2024 Insomnia related to another mental disorder (ICD-10 - F51.05) Bipolar I mix episode- reviewed rx hx per patient list discuss and educated on Caplyta will add Caplyta 42 mg daily samples given # 28 copay card given presently on [place] 150 mg twice a day HX [place] toxicty 2022 obtain labs recently done Anxiety - educated on anxiety and therapy hx Ativan - stopped, Visatril- depression took rx x1 no control substance Insomnia r/t mental d/o- Tazodone presently taking 50 mg nightly not helping Add Melatonin 3-5 mg OTC Educated on rx OCD - continue therapy http_s://www.[facility].n ih.gov/health/topic s/eoikzb-ttdkip-cih ications http_s://www.[facility].o rg/Qvbzu-Msamkg-Jji ness/Treatments/Men vnp-Yvpvnd-Jwljomcb ons Recommend decrease/stop cannabis use as it may be negatively impacting mood, motivation, anxiety, sleep, focus; can also contribute to development of psychosis Patient educated on all medications including potential benefits, side effects, risks. Educated on proper dosing schedule and importance of compliance educated on all medications, benefits, side effects and risk, and educated on depression, anxiety, and ADHD, mood d/o and educated on compliance of medications, metabolic and movement d/o education appointment is, continue therapy discussion with patient about course of treatment and patient instructions. education on serotonin syndrome SSRI/SNRI side effects discussed including but not limited to, gastric upset, nausea, vomiting, diarrhea and/or constipation, weight changes, sexual side effects including loss of libido, increased suicidal thoughts/behaviors in children and young adults, and serotonin syndrome. Second generation antipsychotics (SGAs) have metabolic syndrome issues with weight gain, increase in prolactin, increased waist circumference, increased lipids, and increased glucose. Thus routine monitoring of weight, metabolic labs, etc. is indicated. A general rank ordering of antipsychotics that have the greatest to the least risk of metabolic effects is olanzapine, quetiapine, risperidone, ziprasidone, and aripiprazole. However, weight gain can occur with all of these drugs and considerable variability exists among patients receiving the same drug regarding the risk of metabolic effects. Anti-psychotic agents not only increase the risk of metabolic disorder, they also increase the risk of CVA, akathisia, and movement disorders including EPS or tardive dyskinesia (more common with first generation antipsychotics) and more. Medication Management and Follow-Up - Plan: - Schedule follow-up appointments every 1-3 months to monitor the patient's response to the medication regimen. - Reinforce the importance of avoiding recreational drug use due to potential neurotoxicity and interactions with prescribed medications. [place] education [place] use reviewed. Risks include risks of toxicity, arrhythmias, cognitive impairment, changes in muscle coordination, weight gain, thyroid and parathyroid changes, polydipsia and polyuria, alopecia, tremor and teratogenicity ( defects). Recommend avoid in females (use contraception consistently). Routine lab monitoring may be required. Patient consented to treatment. Indications: acute eduardo (euphoric eduardo), bipolar prophylaxis, bipolar depression treatment or augmentation, unipolar depression as augmentation with antidepressants Average dose = I,500 mg/day, target serum level 0.8 [place] is known to reduce risk of suicide. 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,000 Renal: chronic renal insufficiency (after 10-20 years), acute renal failure, polyuria occurs in 50-70% [lithium antagonizes anti-diuretic hormone (ADH)], diabetes insipidus in 10% (treat with amiloride) Drug-drug interactions: increase in lithium: NSAIDs, GRZEGORZ inhibitors, angiotensin II antagonists 02/29/2024 FAITH (generalized anxiety disorder) (ICD-10 - F41.1) Learning About Generalized Anxiety Disorder material was published, Generalized Anxiety Disorder: Care Instructions material was published, Learning About Anxiety Disorders material was published mixed Bipolar- patient had a god response to Abilify 20 mg 2013 Will add Abilify 10 mg daily for Bipolar - educated on rx [place] 450 mg twice a day Continue therapy denies SI/HI no plans or intent educated on 988 and 911 go to nearest ER if have passive/active SI or plan or intent hx [place] toxicity at higher doses [place] education [place] use reviewed. Risks include risks of toxicity, arrhythmias, cognitive impairment, changes in muscle coordination, weight gain, thyroid and parathyroid changes, polydipsia and polyuria, alopecia, tremor and teratogenicity ( defects). Recommend avoid in females (use contraception consistently). Routine lab monitoring may be required. Patient consented to treatment. Indications: acute eduardo (euphoric eduardo), bipolar prophylaxis, bipolar depression treatment or augmentation, unipolar depression as augmentation with antidepressants Average dose = I,500 mg/day, target serum level 0.8 [place] is known to reduce risk of suicide. 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,000 Renal: chronic renal insufficiency (after 10-20 years), acute renal failure, polyuria occurs in 50-70% [lithium antagonizes anti-diuretic hormone (ADH)], diabetes insipidus in 10% (treat with amiloride) Drug-drug interactions: increase in lithium: NSAIDs, GRZEGORZ inhibitors, angiotensin II antagonists patient stopped Caplyta (muscle weaknes after 3 days and seenn in [facility]) Anxiety- monitor in therapy primary Insomnia - Trazodone 50 mg at bedtime OCD- Patient had cardiac hx and 3 surgeries currently on Clomipramine 75 MG daily and will slowly decrease to stopping rx will decrease to Clomipramine 50 mg daily for next month then to 25 mg for a month on next visit discuss and educated on Fluxoxamine 50 mg daily for OCD Monitor for SI http_s://www.[facility].n ih.gov/health/topic s/esbgin-stmwim-vef ications http_s://www.[facility].o rg/Gqzeh-Rjktxz-Ynd ness/Treatments/Men xck-Gstxtn-Zgpbfaqu ons discuss and educated pharmacogenomic panel- patient will have test next visit Patient educated on all medications including potential benefits, side effects, risks. Educated on proper dosing schedule and importance of compliance educated on all medications, benefits, side effects and risk, and educated on depression, anxiety, and ADHD, mood d/o and educated on compliance of medications, metabolic and movement d/o education appointment is, continue therapy discussion with patient about course of treatment and patient instructions. education on serotonin syndrome SSRI/SNRI side effects discussed including but not limited to, gastric upset, nausea, vomiting, diarrhea and/or constipation, weight changes, sexual side effects including loss of libido, increased suicidal thoughts/behaviors in children and young adults, and serotonin syndrome. Second generation antipsychotics (SGAs) have metabolic syndrome issues with weight gain, increase in prolactin, increased waist circumference, increased lipids, and increased glucose. Thus routine monitoring of weight, metabolic labs, etc. is indicated. A general rank ordering of antipsychotics that have the greatest to the least risk of metabolic effects is olanzapine, quetiapine, risperidone, ziprasidone, and aripiprazole. However, weight gain can occur with all of these drugs and considerable variability exists among patients receiving the same drug regarding the risk of metabolic effects. Anti-psychotic agents not only increase the risk of metabolic disorder, they also increase the risk of CVA, akathisia, and movement disorders including EPS or tardive dyskinesia (more common with first generation antipsychotics) and more. Medication Management and Follow-Up - Plan: - Schedule follow-up appointments every 1-3 months to monitor the patient's response to the medication regimen. - Reinforce the importance of avoiding recreational drug use due to potential neurotoxicity and interactions with prescribed medications. 09/17/2024 FAITH (generalized anxiety disorder) (ICD-10 - F41.1) Learning About Generalized Anxiety Disorder material was published, Generalized Anxiety Disorder: Care Instructions material was published, Learning About Anxiety Disorders material was published Learning About Generalized Anxiety Disorder material was published, Generalized Anxiety Disorder: Care Instructions material was published, Learning About Anxiety Disorders material was published, Learning About Generalized Anxiety Disorder material was published, Generalized Anxiety Disorder: Care Instructions material was published, Learning About Anxiety Disorders material was published, Learning About Transcranial Magnetic Stimulation (TMS) material was published 09/15/2024 Primary insomnia (ICD-10 - F51.01) Insomnia: Care Instructions material was published, Learning About Sleeping Well material was published Insomnia: Care Instructions material was published, Learning About Sleeping Well material was published, Insomnia: Care Instructions material was published, Learning About Sleeping Well material was published 1. Anxiety -a. Patient reports improved anxiety level with intrusive thoughts.- therapy b. discuss and educated on all rx Increase Vistaril 10 mg up to three times a day for anxiety - therapy continue - Plan: continue insurance requires 30 days at a time with refills OCD A. fluvoxamine to 100mg. - anxiety and OCD- improved B. Monitor medication response. C. Encourage suicide hotline (183) use if needed. D. advised when to seek emergency services. 2. Bipolar Disorder educated on therapy and CBT/DBT. [facility]- will work on situational stressors and fears in therapy Educated on proper use light box and not to stay in basement in day and come upstairs in day and open curtains, and outside help depression - lithium and Depakote for manic and depression - reported tolerating well and helping mood. Continue Depakote 500 mg BID lithium 150 mg twice a day hx r/t eduardo s/s at once a day and improved and monitor tremors in hands - Discuss Gene sight and Invega for Bipolar to control symptoms - Invega 3 mg daily contiue discuss and educated on Invega injections for near future- pateint agreed plan to taper off [place] r/t tremors - educated on labs for [place] and Depakote level.- patient reported will have done Sunday . Follow up [facility] and therapy scheduled- will make list of concerns for therapy and work on situational stressors, fears, and emotions in therapy labs completed 05/28/24 Valporic acid 36, [place] 0.4, WBC, CMP, CARDIAC enzymes scanned into chart Gene sight reviewed and Abilify may need to be decrease in future - patient reported been working well Tubal 05/30/24- 3. Insomnia - Reports sleep apnea -no CPAP presently not using- plan on getting new CPAP PCP ordered - Plan: a.. sleep hygiene b. Continue melatonin 30min before bed. c. melatonin 3 mg OTC d. Monitor sleep quality. 4. Suicidal Ideation- stable - Reports no passive suicidal thoughts - Denies plan/intent. a. Close monitoring. b. Encourage 838/511 hotline use if needed. c. Follow up [facility] and seeing therapist e. advised to go to the emergency room if thoughts get worse or unmanageable. 5. OCD- thoughts and behaviors fluvoxamine to 100mg. 6.ADHD Comination hx since childhood and rx at childhood and adult LIDIA-AE 2 TEST Reviewed test results are congruent for ADHD combination discuss and educated on non-stimulates and stimualtes reviewed Gene sight - Vyvanse, Dextroamphetamine, and Adderall has no proven genetic markers Focalin and Concerta moderate gene- drug interaction and genotype may impact drug mechanism of action and result in moderate reduce efficacy Plan: Guanfacine use as directed discuss and educated and will add Guanfacine 1 mg daily in am Qelbree- Moderate gene interaction- serum levls may be too low and lower doses may be needed Straterra- significant gene and drug interaction- serum levels too high and lower dose may be needed, CYP2D6 indicate increase side effects, but also greater symptom improvement with those find tx toleratable, potential gene interaction ADHD stimulates education Discuss with patient risk of misuse, abuse, and addiction before prescribing stimulant medicines. 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 Educate patients and their families on these serious risks, proper storage of the medicine, and proper disposal of any unused medicine. Educated patient will monitor Throughout treatment, regularly assess and monitor them for signs and symptoms of nonmedical use, addiction, and potential diversion, which may be evidenced by more frequent renewal. requests than warranted by the prescribed dosage. Random UDS [place] prescription reviewed local pharmacy in [place], no early refills on control substance educated on non-stimulate and stimulates - Plan: Send refill to [facility] need 30 days at a time r/t insurance Gene Sight discuss Follow up [facility] and therapy scheduled- will make list of concerns for therapy and work on situational stressors, fears, and emotions in therapy educated on cannabis use as it can negatively impact mood, motivation, anxiety, sleep, focus/concentration /memory (vigilance, elasticity, processing and attention); can also contribute to development of psychosis. Cannabis/marijuana information: http_s://shaheed.nih.g ov/publications/janice gfacts/cannabis-mar ijuana http_s://www.Weight Wins/cannabis- xqn-bvxiwktw-hfqfzo avinash-adhd/ http_s://www.maribel.o rg/Cwtxg-Mtgkbh-Jgs ness/Mental-Health- Conditions http_s://psych5 CUPS and some sugarr Isotera.com/depression/t dv-ezmguqfxj-hfwhwa qg-tp-xikejtnzzm#tr eatments http__s://www.nimh. nih.gov/health/topi cs/xpqfdi-hscibx-yc dications http__s://www.maribel. org/Drwjn-Uqvslt-Gb lness/Treatments/Me ekmz-Cpwhvl-Obkvqid ions educated on all medications, benefits, side effects and risk, and educated on depression, anxiety, and ADHD, mood d/o and educated on compliance of medications, metabolic and movement d/o education appointment's, continue therapy discussion with patient about course of treatment and patient instructions. education on serotonin syndrome Discussed and educated pt regarding benzodiazepines are generally not intended for prolonged use and that use can cause tolerance, dependence, depression, and associated memory issues including dementias (this list is not exhaustive). Benzodiazepine use is generally not recommended concurrently with pain medications and/or other controlled substances educated on all medications, benefits, side effects and risk, and educated on depression, anxiety, and ADHD, mood d/o and educated on compliance of medications, metabolic and movement d/o education appointment is, continue therapy discussion with patient about course of treatment and patient instructions. education on serotonin syndrome SSRI/SNRI side effects discussed including but not limited to, gastric upset, nausea, vomiting, diarrhea and/or constipation, weight changes, sexual side effects including loss of libido, increased suicidal thoughts/behaviors in children and young adults, and serotonin syndrome. Second generation antipsychotics (SGAs) have metabolic syndrome issues with weight gain, increase in prolactin, increased waist circumference, increased lipids, and increased glucose. Thus routine monitoring of weight, metabolic labs, etc. is indicated. A general rank ordering of antipsychotics that have the greatest to the least risk of metabolic effects is olanzapine, quetiapine, risperidone, ziprasidone, and aripiprazole. However, weight gain can occur with all of these drugs and considerable variability exists among patients receiving the same drug regarding the risk of metabolic effects. Anti-psychotic agents not only increase the risk of metabolic disorder, they also increase the risk of CVA, akathisia, and movement disorders including EPS or tardive dyskinesia (more common with first generation antipsychotics) and more. 08/25/2024 Primary insomnia (ICD-10 - F51.01) Insomnia: Care Instructions material was published, Learning About Sleeping Well material was published Insomnia: Care Instructions material was published, Learning About Sleeping Well material was published, Insomnia: Care Instructions material was published, Learning About Sleeping Well material was published 1. Anxiety -a. Patient reports improved anxiety level with intrusive thoughts.- therapy b. discuss and educated on Vistaril 10 mg at bedtime for anxiety and may take 1/2 dose (5 mg) in day if make tired - therapy continue - Plan: continue insurance requires 30 days at a time with refills OCD A. fluvoxamine to 100mg. - anxiety and OCD- improved B. Monitor medication response. C. Encourage suicide hotline (462) use if needed. D. advised when to seek emergency services. 2. Bipolar Disorder educated on therapy and CBT/DBT. ED- will work on situational stressors and fears in therapy Educated on proper use light box and not to stay in basement in day and come upstairs in day and open curtains, and outside help depression - lithium and Depakote for manic and depression - reported tolerating well and helping mood. Continue Depakote 500 mg BID Patient increased lithium 150 mg twice a day r/t eduardo s/s at once a day and improved and monitor tremors in hands - Discuss Gene sight and switch from Abilify to Invega for Bipolar to control symptoms - will decrease Abilify to 20 mg daily and add Invega 3 mg daily patient will be on 2 anti-psychotics at tthis time while tapering off Abilify to control s/s discuss and educated on Invega injections for near future plan to taper off [place] r/t tremors - educated on labs for [place] and Depakote level. . Follow up [facility] and therapy scheduled- will make list of concerns for therapy and work on situational stressors, fears, and emotions in therapy labs completed 05/28/24 Valporic acid 36, [place] 0.4, WBC, CMP, CARDIAC enzymes scanned into chart LABS SCHEDULED today PCP will add [place] and Depakote Gene sight reviewed and Abilify may need to be decrease in future - patient reported been working well Tubal 05/30/24- 3. Insomnia - Reports sleep apnea -no CPAP presently not using- plan on getting new CPAP - Plan: a.. sleep hygiene b. Continue melatonin 30min before bed. c. melatonin 3 mg OTC d. Monitor sleep quality. 4. Suicidal Ideation- stable - Reports no passive suicidal thoughts - Denies plan/intent. a. Close monitoring. b. Encourage 734/855 hotline use if needed. c. Follow up [facility] and seeing therapist e. advised to go to the emergency room if thoughts get worse or unmanageable. 5. OCD- thoughts and behaviors fluvoxamine to 100mg. 6.ADHD Comination hx since childhood and rx at childhood and adult LIDIA-AE 2 TEST Reviewed test results are congruent for ADHD combination discuss and educated on non-stimulates and stimualtes reviewed Gene sight - Vyvanse, Dextroamphetamine, and Adderall has no proven genetic markers Focalin and Concerta moderate gene- drug interaction and genotype may impact drug mechanism of action and result in moderate reduce efficacy Plan: Guanfacine use as directed discuss and educated and will add Guanfacine 1 mg daily in am Qel[place]ree- Moderate gene interaction- serum levls may be too low and lower doses may be needed Straterra- significant gene and drug interaction- serum levels too high and lower dose may be needed, CYP2D6 indicate increase side effects, but also greater symptom improvement with those find tx toleratable, potential gene interaction ADHD stimulates education Discuss with patient risk of misuse, abuse, and addiction before prescribing stimulant medicines. 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 Educate patients and their families on these serious risks, proper storage of the medicine, and proper disposal of any unused medicine. Educated patient will monitor Throughout treatment, regularly assess and monitor them for signs and symptoms of nonmedical use, addiction, and potential diversion, which may be evidenced by more frequent renewal. requests than warranted by the prescribed dosage. Random UDS [place] prescription reviewed local pharmacy in [facility], no early refills on control substance educated on non-stimulate and stimulates - Plan: Send refill to [facility] need 30 days at a time r/t insurance Gene Sight discuss Follow up MIRELA and therapy scheduled- will make list of concerns for therapy and work on situational stressors, fears, and emotions in therapy educated on cannabis use as it can negatively impact mood, motivation, anxiety, sleep, focus/concentration /memory (vigilance, elasticity, processing and attention); can also contribute to development of psychosis. Cannabis/marijuana information: http_s://shaheed.nih.g ov/publications/janice gfacts/cannabis-mar ijuana http_s://www.Social Rewards.Safecare/cannabis- rbb-avwfxylz-agdges avinash-adhd/ http_s://www.maribel.o rg/Fvrtd-Ftqloy-Zmd ness/Mental-Health- Conditions http_s://psychcentr Isotera.com/depression/t jc-ofvmijdgf-qrivem zp-sw-advhftzvms#tr eatments http__s://www.nimh. nih.gov/health/topi cs/ntzvss-ewyern-lu dications http__s://www.maribel. org/Awecs-Lvorrl-Vt lness/Treatments/Me jwoc-Pfdynq-Deudepu ions educated on all medications, benefits, side effects and risk, and educated on depression, anxiety, and ADHD, mood d/o and educated on compliance of medications, metabolic and movement d/o education appointment's, continue therapy discussion with patient about course of treatment and patient instructions. education on serotonin syndrome Discussed and educated pt regarding benzodiazepines are generally not intended for prolonged use and that use can cause tolerance, dependence, depression, and associated memory issues including dementias (this list is not exhaustive). Benzodiazepine use is generally not recommended concurrently with pain medications and/or other controlled substances educated on all medications, benefits, side effects and risk, and educated on depression, anxiety, and ADHD, mood d/o and educated on compliance of medications, metabolic and movement d/o education appointment is, continue therapy discussion with patient about course of treatment and patient instructions. education on serotonin syndrome SSRI/SNRI side effects discussed including but not limited to, gastric upset, nausea, vomiting, diarrhea and/or constipation, weight changes, sexual side effects including loss of libido, increased suicidal thoughts/behaviors in children and young adults, and serotonin syndrome. Second generation antipsychotics (SGAs) have metabolic syndrome issues with weight gain, increase in prolactin, increased waist circumference, increased lipids, and increased glucose. Thus routine monitoring of weight, metabolic labs, etc. is indicated. A general rank ordering of antipsychotics that have the greatest to the least risk of metabolic effects is olanzapine, quetiapine, risperidone, ziprasidone, and aripiprazole. However, weight gain can occur with all of these drugs and considerable variability exists among patients receiving the same drug regarding the risk of metabolic effects. Anti-psychotic agents not only increase the risk of metabolic disorder, they also increase the risk of CVA, akathisia, and movement disorders including EPS or tardive dyskinesia (more common with first generation antipsychotics) and more. 05/06/2024 FAITH (generalized anxiety disorder) (ICD-10 - F41.1) Learning About Generalized Anxiety Disorder material was published, Generalized Anxiety Disorder: Care Instructions material was published, Learning About Anxiety Disorders material was published 1. Anxiety -a. Patient reports anxiety level with intrusive thoughts.- therapy b. discuss and educated on Vistaril 10 mg three tmes a day PRN for anxiety and may take 1/2 dose (5 mg) in day if make tired - therapy continue - Plan: a. b. fluvoxamine to 50mg. - anxiety and OCD c. Monitor medication response. d. Encourage suicide hotline (860) use if needed. e. advised when to seek emergency services. 2. Bipolar Disorder - Transitioning from lithium to Depakote for manic depression. - No changes noticed with adjustment. - Plan: a. Continue Depakote 500mg BID and lithium 150mg BID until therapeutic Depakote level. b. Follow up on to assess progress. C. Abilify 30 mg at bedtime- patient reported has not picked up yet - prescribed 05/05/24 from [facility] walk in clinic 3. Insomnia - Reports 9-10 hours in bed and 8 hours sleep with awakenings. - Plan: a.. sleep hygiene b. Continue melatonin 30min before bed. c. melatonin 3 mg OTC d. Monitor sleep quality. 4. Suicidal Ideation - Reports no passive suicidal thoughts - Denies plan/intent. - Plan: a. Close monitoring. b. Encourage 988 hotline use if needed. c. Follow up on for medication effect. e. advised to go to the emergency room if thoughts get worse or unmanageable. 5. OCD A. fluvoxamine to 50mg. 6. Increased Appetite - Reports constant hunger. - Plan: a. Monitor appetite/weight. b. Discuss healthy eating habits. c. heart healthy diet and excise 7. Headache - Reports headaches, not severe. - Plan: see PCP patient will schedule appt a. Monitor frequency/severity. b. Consider medication side effects. c. Recommend OTC relief as needed. d. sleep hygiene education 8. Medication Refill - Fluvoxamine sent 05/05/24 - Aripiprazole to 30 mg HS.- RX SENT 05/05/24 - Plan: Send refill to [facility]. 8. Follow-up - Appointment with [facility] on . - Plan: Continue monitoring progress and medication response. Recommend decrease/stop cannabis use as it can negatively impact mood, motivation, anxiety, sleep, focus/concentration /memory (vigilance, elasticity, processing and attention); can also contribute to development of psychosis. Cannabis/marijuana information: http_s://shaheed.nih.g ov/publications/janice gfacts/cannabis-mar ijuana http_s://www.Social Rewards.Safecare/cannabis- vjr-ajqzzijt-ojxfgf avinash-adhd/ http_s://www.maribel.o rg/Ecpaj-Jvzwee-Abl ness/Mental-Health- Conditions http_s://psychcentr al.com/depression/t so-jtzpzjtkv-vmeuty lm-ez-ugzbnyelby#tr eatments http__s://www.nimh. nih.gov/health/topi cs/lmbtvo-chzlnx-gu dications http__s://www.maribel. org/Egakj-Hnqboh-Lw lness/Treatments/Me pzpv-Ahhpwc-Xrtbjal ions educated on all medications, benefits, side effects and risk, and educated on depression, anxiety, and ADHD, mood d/o and educated on compliance of medications, metabolic and movement d/o education appointment's, continue therapy discussion with patient about course of treatment and patient instructions. education on serotonin syndrome Discussed and educated pt regarding benzodiazepines are generally not intended for prolonged use and that use can cause tolerance, dependence, depression, and associated memory issues including dementias (this list is not exhaustive). Benzodiazepine use is generally not recommended concurrently with pain medications and/or other controlled substances educated on all medications, benefits, side effects and risk, and educated on depression, anxiety, and ADHD, mood d/o and educated on compliance of medications, metabolic and movement d/o education appointment is, continue therapy discussion with patient about course of treatment and patient instructions. education on serotonin syndrome SSRI/SNRI side effects discussed including but not limited to, gastric upset, nausea, vomiting, diarrhea and/or constipation, weight changes, sexual side effects including loss of libido, increased suicidal thoughts/behaviors in children and young adults, and serotonin syndrome. Second generation antipsychotics (SGAs) have metabolic syndrome issues with weight gain, increase in prolactin, increased waist circumference, increased lipids, and increased glucose. Thus routine monitoring of weight, metabolic labs, etc. is indicated. A general rank ordering of antipsychotics that have the greatest to the least risk of metabolic effects is olanzapine, quetiapine, risperidone, ziprasidone, and aripiprazole. However, weight gain can occur with all of these drugs and considerable variability exists among patients receiving the same drug regarding the risk of metabolic effects. Anti-psychotic agents not only increase the risk of metabolic disorder, they also increase the risk of CVA, akathisia, and movement disorders including EPS or tardive dyskinesia (more common with first generation antipsychotics) and more. Medication Management and Follow-Up - Plan: - Schedule follow-up appointments every 1-3 months to monitor the patient's response to the medication regimen. - Reinforce the importance of avoiding recreational drug use due to potential neurotoxicity and interactions with prescribed medications. Risk- Depakote can cause major congenital malformations incl. neural tube defects, decr. IQ scores, neurodevelopmental disorders after in utero exposure; contraindicated for migraine prophylaxis use in and women of reproductive potential w/o effective contraception; should not be used for epilepsy or bipolar disorder use in and women planning to become unless other tx options have failed or are unacceptable; women should use effective contraception during tx 07/17/2024 Primary insomnia (ICD-10 - F51.01) Insomnia: Care Instructions material was published, Learning About Sleeping Well material was published Insomnia: Care Instructions material was published, Learning About Sleeping Well material was published 1. Anxiety -a. Patient reports improved anxiety level with intrusive thoughts.- therapy b. discuss and educated on Vistaril 10 mg at bedtime for anxiety and may take 1/2 dose (5 mg) in day if make tired - therapy continue - Plan: continue rx no refills needed today insurance requires 30 days at a time with refills OCD A. fluvoxamine to 100mg. - anxiety and OCD- improved B. Monitor medication response. C. Encourage suicide hotline (276) use if needed. D. advised when to seek emergency services. 2. Bipolar Disorder educated on therapy and CBT/DBT. [facility]- will work on situational stressors and fears in therapy Educated on proper use light box and not to stay in basement in day and come upstairs in day and open curtains, and outside help depression - lithium and Depakote for manic and depression - reported tolerating well and helping mood. - No changes - Plan: Continue Depakote 500 mg BID will decrease lithium 150 mg in am and monitor tremors in hands - plan to taper off [place] - educated on labs for [place] and Depakote level. . Follow up [facility]RE[facility] and therapy scheduled- will make list of concerns for therapy and work on situational stressors, fears, and emotions in therapy Abilify 30 mg at bedtime- prescribed 05/05/24 from [facility]- discuss may plan to decrease dose in furture - patient has had recent eduardo/hypomania and depression recently labs completed 05/28/24 Valporic acid 36, [place] 0.4, WBC, CMP, CARDIAC enzymes scanned into chart Gene sight reviewed and Abilify may need to be decrease in future - patient reported been working well Tubal 05/30/24- recovery well 3. Insomnia - Reports sleep apnea no CPAP presently using - Plan: a.. sleep hygiene b. Continue melatonin 30min before bed. c. melatonin 3 mg OTC d. Monitor sleep quality. Trazodone 50 mg PRN- reported not taking 4. Suicidal Ideation- stable - Reports no passive suicidal thoughts - Denies plan/intent. a. Close monitoring. b. Encourage 258/911 hotline use if needed. c. Follow up MIRELA and seeing therapist e. advised to go to the emergency room if thoughts get worse or unmanageable. 5. OCD- thoughts and behaviors A. fluvoxamine to 100mg. 6. appetite - Reports varies a. Monitor appetite/weight. b. Discuss healthy eating habits. c. heart healthy diet and excise 7. Headache - Reports headaches same - Plan: see PCP patient will schedule appt and discuss HTN- new patient appt schedules and seen licensed nursing assistant with HTN and adjusting rx a. Monitor frequency/severity. b. Consider medication side effects. c. Recommend OTC relief as needed. d. sleep hygiene education no NSAIDS ADHD Comination hx since childhood and rx at childhood and adult LIDIA-2 TEST SCHEDULED - Plan: Send refill to [facility] need 30 days at a time r/t insurance [employer] discuss Follow up [facility] and therapy scheduled- will make list of concerns for therapy and work on situational stressors, fears, and emotions in therapy Recommend decrease/stop cannabis use as it can negatively impact mood, motivation, anxiety, sleep, focus/concentration /memory (vigilance, elasticity, processing and attention); can also contribute to development of psychosis. Cannabis/marijuana information: http_s://shaheed.nih.g ov/publications/janice gfacts/cannabis-mar ijuana http_s://www.Social Rewards.[employer]care/cannabis- ole-dzeyehla-hvucmf avinash-adhd/ http_s://www.maribel.o rg/Wpykd-Bvwxqh-Rzg ness/Mental-Health- Conditions http_s://psychcentr Isotera.com/depression/t hg-tlkytnial-ufhbvb dy-du-nhuxuxajsc#tr eatments http__s://www.nimh. nih.gov/health/topi cs/hfxbhg-bncoaj-ce dications http__s://www.maribel. org/Hjbuu-Aiaeuu-Ny lness/Treatments/Me koam-Dwauyk-Zhngecu ions educated on all medications, benefits, side effects and risk, and educated on depression, anxiety, and ADHD, mood d/o and educated on compliance of medications, metabolic and movement d/o education appointment's, continue therapy discussion with patient about course of treatment and patient instructions. education on serotonin syndrome Discussed and educated pt regarding benzodiazepines are generally not intended for prolonged use and that use can cause tolerance, dependence, depression, and associated memory issues including dementias (this list is not exhaustive). Benzodiazepine use is generally not recommended concurrently with pain medications and/or other controlled substances educated on all medications, benefits, side effects and risk, and educated on depression, anxiety, and ADHD, mood d/o and educated on compliance of medications, metabolic and movement d/o education appointment is, continue therapy discussion with patient about course of treatment and patient instructions. education on serotonin syndrome SSRI/SNRI side effects discussed including but not limited to, gastric upset, nausea, vomiting, diarrhea and/or constipation, weight changes, sexual side effects including loss of libido, increased suicidal thoughts/behaviors in children and young adults, and serotonin syndrome. Second generation antipsychotics (SGAs) have metabolic syndrome issues with weight gain, increase in prolactin, increased waist circumference, increased lipids, and increased glucose. Thus routine monitoring of weight, metabolic labs, etc. is indicated. A general rank ordering of antipsychotics that have the greatest to the least risk of metabolic effects is olanzapine, quetiapine, risperidone, ziprasidone, and aripiprazole. However, weight gain can occur with all of these drugs and considerable variability exists among patients receiving the same drug regarding the risk of metabolic effects. Anti-psychotic agents not only increase the risk of metabolic disorder, they also increase the risk of CVA, akathisia, and movement disorders including EPS or tardive dyskinesia (more common with first generation antipsychotics) and more. 06/03/2024 Primary insomnia (ICD-10 - F51.01) Insomnia: Care Instructions material was published, Learning About Sleeping Well material was published Insomnia: Care Instructions material was published, Learning About Sleeping Well material was published 1. Anxiety -a. Patient reports improved anxiety level with intrusive thoughts.- therapy b. discuss and educated on Vistaril 10 mg at bedtime for anxiety and may take 1/2 dose (5 mg) in day if make tired - therapy continue - Plan: continue rx no refills needed today insurance requires 30 days at a time with refills OCD A. fluvoxamine to 100mg. - anxiety and OCD- improved B. Monitor medication response. C. Encourage suicide hotline (988) use if needed. D. advised when to seek emergency services. 2. Bipolar Disorder - lithium and Depakote for manic and depression - reported tolerating well and helping mood. - No changes - Plan: a. Continue Depakote 500mg BID and lithium 150mg BID - educated on labs for [place] and Depakote level. b. Follow up [facility] and therapy scheduled C. Abilify 30 mg at bedtime- prescribed 05/05/24 from [facility] labs completed 05/28/24 Valporic acid 36, [place] 0.4, WBC, CMP, CARDIAC enzymes scanned into chart Tubal 05/30/24- [facility] 3. Insomnia - Reports sleep apnea no CPAP presently using average sleep 9-10 hours - Plan: a.. sleep hygiene b. Continue melatonin 30min before bed. c. melatonin 3 mg OTC d. Monitor sleep quality. Trazodone 50 mg PRN- reported not taking last month 4. Suicidal Ideation- stable - Reports no passive suicidal thoughts - Denies plan/intent. - Plan: a. Close monitoring. b. Encourage 988 hotline use if needed. c. Follow up [facility] and seeing therapist e. advised to go to the emergency room if thoughts get worse or unmanageable. 5. OCD- increase thoughts and behaviors on 50 mg dose A. fluvoxamine to 100mg. 6. Appetite normal now - Reports improved - Plan: a. Monitor appetite/weight. b. Discuss healthy eating habits. c. heart healthy diet and excise 7. Headache - Reports headaches, improved - Plan: see PCP patient will schedule appt and discuss HTN a. Monitor frequency/severity. b. Consider medication side effects. c. Recommend OTC relief as needed. d. sleep hygiene education 8. Medication Refill - Plan: Send refill to [facility] no refill needed today and need 30 days at a time r/t insurance Recommend decrease/stop cannabis use as it can negatively impact mood, motivation, anxiety, sleep, focus/concentration /memory (vigilance, elasticity, processing and attention); can also contribute to development of psychosis. Cannabis/marijuana information: http_s://shaheed.nih.g ov/publications/janice gfacts/cannabis-mar lopezuana http_s://www.additu demag.com/cannabis- igu-jlabjcyn-uttjqe avinash-adhd/ http_s://www.maribel.o /Vhxae-Ndgilz-Ihi ness/Mental-Health- Conditions http_s://psychcentr Isotera.com/depression/t wt-vbddncbjl-dfekvk gv-zi-xtxtnzugxt#tr eatments http__s://www.nimh. nih.gov/health/topi cs/quvmiw-fxbhzb-it dications http__s://www.maribel. org/Pibuw-Txqjps-Uq lness/Treatments/Me dceu-Zojzya-Utfhiok ions educated on all medications, benefits, side effects and risk, and educated on depression, anxiety, and ADHD, mood d/o and educated on compliance of medications, metabolic and movement d/o education appointment's, continue therapy discussion with patient about course of treatment and patient instructions. education on serotonin syndrome Discussed and educated pt regarding benzodiazepines are generally not intended for prolonged use and that use can cause tolerance, dependence, depression, and associated memory issues including dementias (this list is not exhaustive). Benzodiazepine use is generally not recommended concurrently with pain medications and/or other controlled substances educated on all medications, benefits, side effects and risk, and educated on depression, anxiety, and ADHD, mood d/o and educated on compliance of medications, metabolic and movement d/o education appointment is, continue therapy discussion with patient about course of treatment and patient instructions. education on serotonin syndrome SSRI/SNRI side effects discussed including but not limited to, gastric upset, nausea, vomiting, diarrhea and/or constipation, weight changes, sexual side effects including loss of libido, increased suicidal thoughts/behaviors in children and young adults, and serotonin syndrome. Second generation antipsychotics (SGAs) have metabolic syndrome issues with weight gain, increase in prolactin, increased waist circumference, increased lipids, and increased glucose. Thus routine monitoring of weight, metabolic labs, etc. is indicated. A general rank ordering of antipsychotics that have the greatest to the least risk of metabolic effects is olanzapine, quetiapine, risperidone, ziprasidone, and aripiprazole. However, weight gain can occur with all of these drugs and considerable variability exists among patients receiving the same drug regarding the risk of metabolic effects. Anti-psychotic agents not only increase the risk of metabolic disorder, they also increase the risk of CVA, akathisia, and movement disorders including EPS or tardive dyskinesia (more common with first generation antipsychotics) and more. 06/17/2024 Primary insomnia (ICD-10 - F51.01) Insomnia: Care Instructions material was published, Learning About Sleeping Well material was published Insomnia: Care Instructions material was published, Learning About Sleeping Well material was published 1. Anxiety -a. Patient reports improved anxiety level with intrusive thoughts.- therapy b. discuss and educated on Vistaril 10 mg at bedtime for anxiety and may take 1/2 dose (5 mg) in day if make tired - therapy continue - Plan: continue rx no refills needed today insurance requires 30 days at a time with refills OCD A. fluvoxamine to 100mg. - anxiety and OCD- improved B. Monitor medication response. C. Encourage suicide hotline (118) use if needed. D. advised when to seek emergency services. 2. Bipolar Disorder educated on therapy and CBT/DBT. EDMR- will work on situational stressors and fears in therapy Educated on proper use light box and not to stay in basement in day and come upstairs in day and open curtains, and outside help depression - lithium and Depakote for manic and depression - reported tolerating well and helping mood. - No changes - Plan: a. Continue Depakote 500mg BID and lithium 150mg BID - educated on labs for [place] and Depakote level. b. Follow up [facility] and therapy scheduled- will make list of concerns for therapy and work on situational stressors, fears, and emotions in therapy C. Abilify 30 mg at bedtime- prescribed 05/05/24 from [facility] walk in clinic labs completed 05/28/24 Valporic acid 36, [place] 0.4, WBC, CMP, CARDIAC enzymes scanned into chart Tubal 05/30/24- [facility] 3. Insomnia - Reports sleep apnea no CPAP presently using - Plan: a.. sleep hygiene b. Continue melatonin 30min before bed. c. melatonin 3 mg OTC d. Monitor sleep quality. Trazodone 50 mg PRN- reported not taking 4. Suicidal Ideation- stable - Reports no passive suicidal thoughts - Denies plan/intent. a. Close monitoring. b. Encourage 988/911 hotline use if needed. c. Follow up [facility] and seeing therapist e. advised to go to the emergency room if thoughts get worse or unmanageable. 5. OCD- thoughts and behaviors A. fluvoxamine to 100mg. 6. appetite - Reports varies a. Monitor appetite/weight. b. Discuss healthy eating habits. c. heart healthy diet and excise 7. Headache - Reports headaches same - Plan: see PCP patient will schedule appt and discuss HTN- new patient appt schedules and seen licensed nursing assistant with HTN and adjusting rx a. Monitor frequency/severity. b. Consider medication side effects. c. Recommend OTC relief as needed. d. sleep hygiene education 8. Medication Refill - Plan: Send refill to [facility] no refill needed today and need 30 days at a time r/t insurance [employer] discuss and ordered Recommend decrease/stop cannabis use as it can negatively impact mood, motivation, anxiety, sleep, focus/concentration /memory (vigilance, elasticity, processing and attention); can also contribute to development of psychosis. Cannabis/marijuana information: http_s://shaheed.nih.g ov/publications/janice gfacts/cannabis-mar ijuana http_s://www.Weight Wins/cannabis- lfw-xzrkpxsj-orwyln avinash-adhd/ http_s://www.maribel.o rg/Pbumg-Atkaaf-Zoy ness/Mental-Health- Conditions http_s://psych5 CUPS and some sugarr Isotera.com/depression/t aw-mnzqxgyxm-lshhvg ml-wn-uuimoklimh#tr eatments http__s://www.nimh. nih.gov/health/topi cs/vlwicp-dlcgcm-ow dications http__s://www.maribel. org/Cqglq-Vgluug-Tz lness/Treatments/Me zpgo-Djiqlg-Enqatmw ions educated on all medications, benefits, side effects and risk, and educated on depression, anxiety, and ADHD, mood d/o and educated on compliance of medications, metabolic and movement d/o education appointment's, continue therapy discussion with patient about course of treatment and patient instructions. education on serotonin syndrome Discussed and educated pt regarding benzodiazepines are generally not intended for prolonged use and that use can cause tolerance, dependence, depression, and associated memory issues including dementias (this list is not exhaustive). Benzodiazepine use is generally not recommended concurrently with pain medications and/or other controlled substances educated on all medications, benefits, side effects and risk, and educated on depression, anxiety, and ADHD, mood d/o and educated on compliance of medications, metabolic and movement d/o education appointment is, continue therapy discussion with patient about course of treatment and patient instructions. education on serotonin syndrome SSRI/SNRI side effects discussed including but not limited to, gastric upset, nausea, vomiting, diarrhea and/or constipation, weight changes, sexual side effects including loss of libido, increased suicidal thoughts/behaviors in children and young adults, and serotonin syndrome. Second generation antipsychotics (SGAs) have metabolic syndrome issues with weight gain, increase in prolactin, increased waist circumference, increased lipids, and increased glucose. Thus routine monitoring of weight, metabolic labs, etc. is indicated. A general rank ordering of antipsychotics that have the greatest to the least risk of metabolic effects is olanzapine, quetiapine, risperidone, ziprasidone, and aripiprazole. However, weight gain can occur with all of these drugs and considerable variability exists among patients receiving the same drug regarding the risk of metabolic effects. Anti-psychotic agents not only increase the risk of metabolic disorder, they also increase the risk of CVA, akathisia, and movement disorders including EPS or tardive dyskinesia (more common with first generation antipsychotics) and more. 06/17/2024 Mixed obsessional thoughts and acts (ICD-10 - F42.2) Obsessive-Compulsiv e Disorder: Care Instructions material was published Obsessive-Compulsiv e Disorder: Care Instructions material was published 1. Anxiety -a. Patient reports improved anxiety level with intrusive thoughts.- therapy b. discuss and educated on Vistaril 10 mg at bedtime for anxiety and may take 1/2 dose (5 mg) in day if make tired - therapy continue - Plan: continue rx no refills needed today insurance requires 30 days at a time with refills OCD A. fluvoxamine to 100mg. - anxiety and OCD- improved B. Monitor medication response. C. Encourage suicide hotline (719) use if needed. D. advised when to seek emergency services. 2. Bipolar Disorder educated on therapy and CBT/DBT. EDMR- will work on situational stressors and fears in therapy Educated on proper use light box and not to stay in basement in day and come upstairs in day and open curtains, and outside help depression - lithium and Depakote for manic and depression - reported tolerating well and helping mood. - No changes - Plan: a. Continue Depakote 500mg BID and lithium 150mg BID - educated on labs for [place] and Depakote level. b. Follow up [facility] and therapy scheduled- will make list of concerns for therapy and work on situational stressors, fears, and emotions in therapy C. Abilify 30 mg at bedtime- prescribed 05/05/24 from [facility] walk in clinic labs completed 05/28/24 Valporic acid 36, [place] 0.4, WBC, CMP, CARDIAC enzymes scanned into chart Tubal 05/30/24- recovery [facility] 3. Insomnia - Reports sleep apnea no CPAP presently using - Plan: a.. sleep hygiene b. Continue melatonin 30min before bed. c. melatonin 3 mg OTC d. Monitor sleep quality. Trazodone 50 mg PRN- reported not taking 4. Suicidal Ideation- stable - Reports no passive suicidal thoughts - Denies plan/intent. a. Close monitoring. b. Encourage 933/961 hotline use if needed. c. Follow up [facility] and seeing therapist e. advised to go to the emergency room if thoughts get worse or unmanageable. 5. OCD- thoughts and behaviors A. fluvoxamine to 100mg. 6. appetite - Reports varies a. Monitor appetite/weight. b. Discuss healthy eating habits. c. heart healthy diet and excise 7. Headache - Reports headaches same - Plan: see PCP patient will schedule appt and discuss HTN- new patient appt schedules and seen licensed nursing assistant with HTN and adjusting rx a. Monitor frequency/severity. b. Consider medication side effects. c. Recommend OTC relief as needed. d. sleep hygiene education 8. Medication Refill - Plan: Send refill to [facility] no refill needed today and need 30 days at a time r/t insurance [facility] [employer] discuss and ordered Recommend decrease/stop cannabis use as it can negatively impact mood, motivation, anxiety, sleep, focus/concentration /memory (vigilance, elasticity, processing and attention); can also contribute to development of psychosis. Cannabis/marijuana information: http_s://shaheed.nih.g ov/publications/janice gfacts/cannabis-mar prosper http_s://www.Social Rewards.com/cannabis- taa-smomczgt-rvqrvb avinash-adhd/ http_s://www.maribel.o rg/Jkgfc-Dprora-Jlg ness/Mental-Health- Conditions http_s://psychcentr Isotera.com/depression/t zf-khpzrjyde-tzfpse wa-or-lbkfybdqna#tr eatments http__s://www.nimh. nih.gov/health/topi cs/hatqpi-ucayzl-cr dications http__s://www.maribel. org/Bnazp-Qgfflz-Mv lness/Treatments/Me bseg-Wbrbio-Ozatrzo ions educated on all medications, benefits, side effects and risk, and educated on depression, anxiety, and ADHD, mood d/o and educated on compliance of medications, metabolic and movement d/o education appointment's, continue therapy discussion with patient about course of treatment and patient instructions. education on serotonin syndrome Discussed and educated pt regarding benzodiazepines are generally not intended for prolonged use and that use can cause tolerance, dependence, depression, and associated memory issues including dementias (this list is not exhaustive). Benzodiazepine use is generally not recommended concurrently with pain medications and/or other controlled substances educated on all medications, benefits, side effects and risk, and educated on depression, anxiety, and ADHD, mood d/o and educated on compliance of medications, metabolic and movement d/o education appointment is, continue therapy discussion with patient about course of treatment and patient instructions. education on serotonin syndrome SSRI/SNRI side effects discussed including but not limited to, gastric upset, nausea, vomiting, diarrhea and/or constipation, weight changes, sexual side effects including loss of libido, increased suicidal thoughts/behaviors in children and young adults, and serotonin syndrome. Second generation antipsychotics (SGAs) have metabolic syndrome issues with weight gain, increase in prolactin, increased waist circumference, increased lipids, and increased glucose. Thus routine monitoring of weight, metabolic labs, etc. is indicated. A general rank ordering of antipsychotics that have the greatest to the least risk of metabolic effects is olanzapine, quetiapine, risperidone, ziprasidone, and aripiprazole. However, weight gain can occur with all of these drugs and considerable variability exists among patients receiving the same drug regarding the risk of metabolic effects. Anti-psychotic agents not only increase the risk of metabolic disorder, they also increase the risk of CVA, akathisia, and movement disorders including EPS or tardive dyskinesia (more common with first generation antipsychotics) and more. 05/06/2024 Primary insomnia (ICD-10 - F51.01) Insomnia: Care Instructions material was published, Learning About Sleeping Well material was published 1. Anxiety -a. Patient reports anxiety level with intrusive thoughts.- therapy b. discuss and educated on Vistaril 10 mg three tmes a day PRN for anxiety and may take 1/2 dose (5 mg) in day if make tired - therapy continue - Plan: a. b. fluvoxamine to 50mg. - anxiety and OCD c. Monitor medication response. d. Encourage suicide hotline (988) use if needed. e. advised when to seek emergency services. 2. Bipolar Disorder - Transitioning from lithium to Depakote for manic depression. - No changes noticed with adjustment. - Plan: a. Continue Depakote 500mg BID and lithium 150mg BID until therapeutic Depakote level. b. Follow up on to assess progress. C. Abilify 30 mg at bedtime- patient reported has not picked up yet - prescribed 05/05/24 from [facility] walk in clinic 3. Insomnia - Reports 9-10 hours in bed and 8 hours sleep with awakenings. - Plan: a.. sleep hygiene b. Continue melatonin 30min before bed. c. melatonin 3 mg OTC d. Monitor sleep quality. 4. Suicidal Ideation - Reports no passive suicidal thoughts - Denies plan/intent. - Plan: a. Close monitoring. b. Encourage 988 hotline use if needed. c. Follow up on for medication effect. e. advised to go to the emergency room if thoughts get worse or unmanageable. 5. OCD A. fluvoxamine to 50mg. 6. Increased Appetite - Reports constant hunger. - Plan: a. Monitor appetite/weight. b. Discuss healthy eating habits. c. heart healthy diet and excise 7. Headache - Reports headaches, not severe. - Plan: see PCP patient will schedule appt a. Monitor frequency/severity. b. Consider medication side effects. c. Recommend OTC relief as needed. d. sleep hygiene education 8. Medication Refill - Fluvoxamine sent 05/05/24 - Aripiprazole to 30 mg HS.- RX SENT 05/05/24 - Plan: Send refill to [facility], [place]. 8. Follow-up - Appointment with [facility] on . - Plan: Continue monitoring progress and medication response. Recommend decrease/stop cannabis use as it can negatively impact mood, motivation, anxiety, sleep, focus/concentration /memory (vigilance, elasticity, processing and attention); can also contribute to development of psychosis. Cannabis/marijuana information: http_s://shaheed.nih.g ov/publications/janice gfacts/cannabis-mar ijuana http_s://www.Weight Wins/cannabis- uxp-tfrqbztk-mxodoh avinash-adhd/ http_s://www.maribel.o rg/Gvnzs-Qpupoq-Xjh ness/Mental-Health- Conditions http_s://psych5 CUPS and some sugarr Isotera.com/depression/t bg-tzmvalsxn-vimkan vz-ya-zxigdbtsnj#tr eatments http__s://www.nimh. nih.gov/health/topi cs/aiepea-dyrtqf-gk dications http__s://www.maribel. org/Oeenc-Btzeio-Ew lness/Treatments/Me mflk-Mpbnuj-Kdebahq ions educated on all medications, benefits, side effects and risk, and educated on depression, anxiety, and ADHD, mood d/o and educated on compliance of medications, metabolic and movement d/o education appointment's, continue therapy discussion with patient about course of treatment and patient instructions. education on serotonin syndrome Discussed and educated pt regarding benzodiazepines are generally not intended for prolonged use and that use can cause tolerance, dependence, depression, and associated memory issues including dementias (this list is not exhaustive). Benzodiazepine use is generally not recommended concurrently with pain medications and/or other controlled substances educated on all medications, benefits, side effects and risk, and educated on depression, anxiety, and ADHD, mood d/o and educated on compliance of medications, metabolic and movement d/o education appointment is, continue therapy discussion with patient about course of treatment and patient instructions. education on serotonin syndrome SSRI/SNRI side effects discussed including but not limited to, gastric upset, nausea, vomiting, diarrhea and/or constipation, weight changes, sexual side effects including loss of libido, increased suicidal thoughts/behaviors in children and young adults, and serotonin syndrome. Second generation antipsychotics (SGAs) have metabolic syndrome issues with weight gain, increase in prolactin, increased waist circumference, increased lipids, and increased glucose. Thus routine monitoring of weight, metabolic labs, etc. is indicated. A general rank ordering of antipsychotics that have the greatest to the least risk of metabolic effects is olanzapine, quetiapine, risperidone, ziprasidone, and aripiprazole. However, weight gain can occur with all of these drugs and considerable variability exists among patients receiving the same drug regarding the risk of metabolic effects. Anti-psychotic agents not only increase the risk of metabolic disorder, they also increase the risk of CVA, akathisia, and movement disorders including EPS or tardive dyskinesia (more common with first generation antipsychotics) and more. Medication Management and Follow-Up - Plan: - Schedule follow-up appointments every 1-3 months to monitor the patient's response to the medication regimen. - Reinforce the importance of avoiding recreational drug use due to potential neurotoxicity and interactions with prescribed medications. Risk- Depakote can cause major congenital malformations incl. neural tube defects, decr. IQ scores, neurodevelopmental disorders after in utero exposure; contraindicated for migraine prophylaxis use in and women of reproductive potential w/o effective contraception; should not be used for epilepsy or bipolar disorder use in and women planning to become unless other tx options have failed or are unacceptable; women should use effective contraception during tx 06/03/2024 Mixed obsessional thoughts and acts (ICD-10 - F42.2) Obsessive-Compulsiv e Disorder: Care Instructions material was published Obsessive-Compulsiv e Disorder: Care Instructions material was published 1. Anxiety -a. Patient reports improved anxiety level with intrusive thoughts.- therapy b. discuss and educated on Vistaril 10 mg at bedtime for anxiety and may take 1/2 dose (5 mg) in day if make tired - therapy continue - Plan: continue rx no refills needed today insurance requires 30 days at a time with refills OCD A. fluvoxamine to 100mg. - anxiety and OCD- improved B. Monitor medication response. C. Encourage suicide hotline (789) use if needed. D. advised when to seek emergency services. 2. Bipolar Disorder - lithium and Depakote for manic and depression - reported tolerating well and helping mood. - No changes - Plan: a. Continue Depakote 500mg BID and lithium 150mg BID - educated on labs for [place] and Depakote level. b. Follow up [facility] and therapy scheduled Kristi Cedeño 30 mg at bedtime- prescribed 05/05/24 from [facility] labs completed 05/28/24 Valporic acid 36, [place] 0.4, WBC, CMP, CARDIAC enzymes scanned into chart Tubal 05/30/24- recovery well 3. Insomnia - Reports sleep apnea no CPAP presently using average sleep 9-10 hours - Plan: a.. sleep hygiene b. Continue melatonin 30min before bed. c. melatonin 3 mg OTC d. Monitor sleep quality. Trazodone 50 mg PRN- reported not taking last month 4. Suicidal Ideation- stable - Reports no passive suicidal thoughts - Denies plan/intent. - Plan: a. Close monitoring. b. Encourage 988 hotline use if needed. c. Follow up [facility] and seeing therapist e. advised to go to the emergency room if thoughts get worse or unmanageable. 5. OCD- increase thoughts and behaviors on 50 mg dose A. fluvoxamine to 100mg. 6. Appetite normal now - Reports improved - Plan: a. Monitor appetite/weight. b. Discuss healthy eating habits. c. heart healthy diet and excise 7. Headache - Reports headaches, improved - Plan: see PCP patient will schedule appt and discuss HTN a. Monitor frequency/severity. b. Consider medication side effects. c. Recommend OTC relief as needed. d. sleep hygiene education 8. Medication Refill - Plan: Send refill to [facility] no refill needed today and need 30 days at a time r/t insurance Recommend decrease/stop cannabis use as it can negatively impact mood, motivation, anxiety, sleep, focus/concentration /memory (vigilance, elasticity, processing and attention); can also contribute to development of psychosis. Cannabis/marijuana information: http_s://shaheed.nih.g ov/publications/janice gfacts/cannabis-mar ijuana http_s://www.Social Rewards.Safecare/cannabis- zww-jciexncq-dildlv avinash-adhd/ http_s://www.maribel.o rg/Zujnd-Ioubqd-Moc ness/Mental-Health- Conditions http_s://psychcentr Isotera.com/depression/t vu-zifszevlc-kwfcoi xs-ew-kvjqiaueob#tr eatments http__s://www.nimh. nih.gov/health/topi cs/ytuibw-xnvcek-hr dications http__s://www.maribel. org/Ohrxo-Kxnsnp-Ez lness/Treatments/Me fgnh-Hsqokj-Tvnffmg ions educated on all medications, benefits, side effects and risk, and educated on depression, anxiety, and ADHD, mood d/o and educated on compliance of medications, metabolic and movement d/o education appointment's, continue therapy discussion with patient about course of treatment and patient instructions. education on serotonin syndrome Discussed and educated pt regarding benzodiazepines are generally not intended for prolonged use and that use can cause tolerance, dependence, depression, and associated memory issues including dementias (this list is not exhaustive). Benzodiazepine use is generally not recommended concurrently with pain medications and/or other controlled substances educated on all medications, benefits, side effects and risk, and educated on depression, anxiety, and ADHD, mood d/o and educated on compliance of medications, metabolic and movement d/o education appointment is, continue therapy discussion with patient about course of treatment and patient instructions. education on serotonin syndrome SSRI/SNRI side effects discussed including but not limited to, gastric upset, nausea, vomiting, diarrhea and/or constipation, weight changes, sexual side effects including loss of libido, increased suicidal thoughts/behaviors in children and young adults, and serotonin syndrome. Second generation antipsychotics (SGAs) have metabolic syndrome issues with weight gain, increase in prolactin, increased waist circumference, increased lipids, and increased glucose. Thus routine monitoring of weight, metabolic labs, etc. is indicated. A general rank ordering of antipsychotics that have the greatest to the least risk of metabolic effects is olanzapine, quetiapine, risperidone, ziprasidone, and aripiprazole. However, weight gain can occur with all of these drugs and considerable variability exists among patients receiving the same drug regarding the risk of metabolic effects. Anti-psychotic agents not only increase the risk of metabolic disorder, they also increase the risk of CVA, akathisia, and movement disorders including EPS or tardive dyskinesia (more common with first generation antipsychotics) and more. 06/17/2024 Bipolar disorder with depression (ICD-10 - F31.9) 1. Anxiety -a. Patient reports improved anxiety level with intrusive thoughts.- therapy b. discuss and educated on Vistaril 10 mg at bedtime for anxiety and may take 1/2 dose (5 mg) in day if make tired - therapy continue - Plan: continue rx no refills needed today insurance requires 30 days at a time with refills OCD A. fluvoxamine to 100mg. - anxiety and OCD- improved B. Monitor medication response. C. Encourage suicide hotline (688) use if needed. D. advised when to seek emergency services. 2. Bipolar Disorder educated on therapy and CBT/DBT. EDMR- will work on situational stressors and fears in therapy Educated on proper use light box and not to stay in basement in day and come upstairs in day and open curtains, and outside help depression - lithium and Depakote for manic and depression - reported tolerating well and helping mood. - No changes - Plan: a. Continue Depakote 500mg BID and lithium 150mg BID - educated on labs for [place] and Depakote level. b. Follow up [facility] and therapy scheduled- will make list of concerns for therapy and work on situational stressors, fears, and emotions in therapy C. Abilify 30 mg at bedtime- prescribed 05/05/24 from [facility] walk in clinic labs completed 05/28/24 Valporic acid 36, [place] 0.4, WBC, CMP, CARDIAC enzymes scanned into chart Tubal 05/30/24- recovery well 3. Insomnia - Reports sleep apnea no CPAP presently using - Plan: a.. sleep hygiene b. Continue melatonin 30min before bed. c. melatonin 3 mg OTC d. Monitor sleep quality. Trazodone 50 mg PRN- reported not taking 4. Suicidal Ideation- stable - Reports no passive suicidal thoughts - Denies plan/intent. a. Close monitoring. b. Encourage 988/911 hotline use if needed. c. Follow up [facility] and seeing therapist e. advised to go to the emergency room if thoughts get worse or unmanageable. 5. OCD- thoughts and behaviors A. fluvoxamine to 100mg. 6. appetite - Reports varies a. Monitor appetite/weight. b. Discuss healthy eating habits. c. heart healthy diet and excise 7. Headache - Reports headaches same - Plan: see PCP patient will schedule appt and discuss HTN- new patient appt schedules and seen licensed nursing assistant with HTN and adjusting rx a. Monitor frequency/severity. b. Consider medication side effects. c. Recommend OTC relief as needed. d. sleep hygiene education 8. Medication Refill - Plan: Send refill to [facility] no refill needed today and need 30 days at a time r/t insurance [facility] discuss and ordered Recommend decrease/stop cannabis use as it can negatively impact mood, motivation, anxiety, sleep, focus/concentration /memory (vigilance, elasticity, processing and attention); can also contribute to development of psychosis. Cannabis/marijuana information: http_s://shaheed.nih.g ov/publications/janice gfacts/cannabis-mar ijuana http_s://www.Weight Wins/cannabis- mqc-spgavgki-ojgpxk avinash-adhd/ http_s://www.maribel.o rg/Ljbwq-Mysmod-Eom ness/Mental-Health- Conditions http_s://psych5 CUPS and some sugarr Isotera.com/depression/t zu-kqviyuajx-ucixve ee-bx-zfbgyrqqam#tr eatments http__s://www.nimh. nih.gov/health/topi cs/djsbew-bscfir-xw dications http__s://www.maribel. org/Rwyff-Lectin-Qw lness/Treatments/Me rdhc-Htheze-Sjkampn ions educated on all medications, benefits, side effects and risk, and educated on depression, anxiety, and ADHD, mood d/o and educated on compliance of medications, metabolic and movement d/o education appointment's, continue therapy discussion with patient about course of treatment and patient instructions. education on serotonin syndrome Discussed and educated pt regarding benzodiazepines are generally not intended for prolonged use and that use can cause tolerance, dependence, depression, and associated memory issues including dementias (this list is not exhaustive). Benzodiazepine use is generally not recommended concurrently with pain medications and/or other controlled substances educated on all medications, benefits, side effects and risk, and educated on depression, anxiety, and ADHD, mood d/o and educated on compliance of medications, metabolic and movement d/o education appointment is, continue therapy discussion with patient about course of treatment and patient instructions. education on serotonin syndrome SSRI/SNRI side effects discussed including but not limited to, gastric upset, nausea, vomiting, diarrhea and/or constipation, weight changes, sexual side effects including loss of libido, increased suicidal thoughts/behaviors in children and young adults, and serotonin syndrome. Second generation antipsychotics (SGAs) have metabolic syndrome issues with weight gain, increase in prolactin, increased waist circumference, increased lipids, and increased glucose. Thus routine monitoring of weight, metabolic labs, etc. is indicated. A general rank ordering of antipsychotics that have the greatest to the least risk of metabolic effects is olanzapine, quetiapine, risperidone, ziprasidone, and aripiprazole. However, weight gain can occur with all of these drugs and considerable variability exists among patients receiving the same drug regarding the risk of metabolic effects. Anti-psychotic agents not only increase the risk of metabolic disorder, they also increase the risk of CVA, akathisia, and movement disorders including EPS or tardive dyskinesia (more common with first generation antipsychotics) and more. 07/17/2024 Mixed obsessional thoughts and acts (ICD-10 - F42.2) Obsessive-Compulsiv e Disorder: Care Instructions material was published Obsessive-Compulsiv e Disorder: Care Instructions material was published 1. Anxiety -a. Patient reports improved anxiety level with intrusive thoughts.- therapy b. discuss and educated on Vistaril 10 mg at bedtime for anxiety and may take 1/2 dose (5 mg) in day if make tired - therapy continue - Plan: continue rx no refills needed today insurance requires 30 days at a time with refills OCD A. fluvoxamine to 100mg. - anxiety and OCD- improved B. Monitor medication response. C. Encourage suicide hotline (185) use if needed. D. advised when to seek emergency services. 2. Bipolar Disorder educated on therapy and CBT/DBT. EDMR- will work on situational stressors and fears in therapy Educated on proper use light box and not to stay in basement in day and come upstairs in day and open curtains, and outside help depression - lithium and Depakote for manic and depression - reported tolerating well and helping mood. - No changes - Plan: Continue Depakote 500 mg BID will decrease lithium 150 mg in am and monitor tremors in hands - plan to taper off [place] - educated on labs for [place] and Depakote level. . Follow up [facility] and therapy scheduled- will make list of concerns for therapy and work on situational stressors, fears, and emotions in therapy Abilify 30 mg at bedtime- prescribed 05/05/24 from [facility] walk in clinic- discuss may plan to decrease dose in furture - patient has had recent eduardo/hypomania and depression recently labs completed 05/28/24 Valporic acid 36, [place] 0.4, WBC, CMP, CARDIAC enzymes scanned into chart Gene sight reviewed and Abilify may need to be decrease in future - patient reported been working well Tubal 05/30/24- recovery well 3. Insomnia - Reports sleep apnea no CPAP presently using - Plan: a.. sleep hygiene b. Continue melatonin 30min before bed. c. melatonin 3 mg OTC d. Monitor sleep quality. Trazodone 50 mg PRN- reported not taking 4. Suicidal Ideation- stable - Reports no passive suicidal thoughts - Denies plan/intent. a. Close monitoring. b. Encourage 988/911 hotline use if needed. c. Follow up [facility] and seeing therapist e. advised to go to the emergency room if thoughts get worse or unmanageable. 5. OCD- thoughts and behaviors A. fluvoxamine to 100mg. 6. appetite - Reports varies a. Monitor appetite/weight. b. Discuss healthy eating habits. c. heart healthy diet and excise 7. Headache - Reports headaches same - Plan: see PCP patient will schedule appt and discuss HTN- new patient appt schedules and seen licensed nursing assistant with HTN and adjusting rx a. Monitor frequency/severity. b. Consider medication side effects. c. Recommend OTC relief as needed. d. sleep hygiene education no NSAIDS ADHD Comination hx since childhood and rx at childhood and adult LIDIA-2 TEST SCHEDULED - Plan: Send refill to [facility] need 30 days at a time r/t insurance [facility] discuss Follow up [facility] and therapy scheduled- will make list of concerns for therapy and work on situational stressors, fears, and emotions in therapy Recommend decrease/stop cannabis use as it can negatively impact mood, motivation, anxiety, sleep, focus/concentration /memory (vigilance, elasticity, processing and attention); can also contribute to development of psychosis. Cannabis/marijuana information: http_s://shaheed.nih.g ov/publications/janice gfacts/cannabis-mar ijuana http_s://www.Social Rewards.Safecare/cannabis- qld-tauywlze-gtasqq avinash-adhd/ http_s://www.maribel.o rg/Kqxmx-Aoesch-Nlm ness/Mental-Health- Conditions http_s://psychcentr al.com/depression/t yc-ddxgcvxff-yykchz cd-gk-ebaypfqstg#tr eatments http__s://www.nimh. nih.gov/health/topi cs/ljyejg-yccglv-ub dications http__s://www.maribel. org/Nppkj-Uygzdo-Jd lness/Treatments/Me hynj-Szmkhh-Vmwzksq ions educated on all medications, benefits, side effects and risk, and educated on depression, anxiety, and ADHD, mood d/o and educated on compliance of medications, metabolic and movement d/o education appointment's, continue therapy discussion with patient about course of treatment and patient instructions. education on serotonin syndrome Discussed and educated pt regarding benzodiazepines are generally not intended for prolonged use and that use can cause tolerance, dependence, depression, and associated memory issues including dementias (this list is not exhaustive). Benzodiazepine use is generally not recommended concurrently with pain medications and/or other controlled substances educated on all medications, benefits, side effects and risk, and educated on depression, anxiety, and ADHD, mood d/o and educated on compliance of medications, metabolic and movement d/o education appointment is, continue therapy discussion with patient about course of treatment and patient instructions. education on serotonin syndrome SSRI/SNRI side effects discussed including but not limited to, gastric upset, nausea, vomiting, diarrhea and/or constipation, weight changes, sexual side effects including loss of libido, increased suicidal thoughts/behaviors in children and young adults, and serotonin syndrome. Second generation antipsychotics (SGAs) have metabolic syndrome issues with weight gain, increase in prolactin, increased waist circumference, increased lipids, and increased glucose. Thus routine monitoring of weight, metabolic labs, etc. is indicated. A general rank ordering of antipsychotics that have the greatest to the least risk of metabolic effects is olanzapine, quetiapine, risperidone, ziprasidone, and aripiprazole. However, weight gain can occur with all of these drugs and considerable variability exists among patients receiving the same drug regarding the risk of metabolic effects. Anti-psychotic agents not only increase the risk of metabolic disorder, they also increase the risk of CVA, akathisia, and movement disorders including EPS or tardive dyskinesia (more common with first generation antipsychotics) and more. 08/25/2024 Mixed obsessional thoughts and acts (ICD-10 - F42.2) Obsessive-Compulsiv e Disorder: Care Instructions material was published Obsessive-Compulsiv e Disorder: Care Instructions material was published, Obsessive-Compulsiv e Disorder: Care Instructions material was published 1. Anxiety -a. Patient reports improved anxiety level with intrusive thoughts.- therapy b. discuss and educated on Vistaril 10 mg at bedtime for anxiety and may take 1/2 dose (5 mg) in day if make tired - therapy continue - Plan: continue insurance requires 30 days at a time with refills OCD A. fluvoxamine to 100mg. - anxiety and OCD- improved B. Monitor medication response. C. Encourage suicide hotline (483) use if needed. D. advised when to seek emergency services. 2. Bipolar Disorder educated on therapy and CBT/DBT. EDMR- will work on situational stressors and fears in therapy Educated on proper use light box and not to stay in basement in day and come upstairs in day and open curtains, and outside help depression - lithium and Depakote for manic and depression - reported tolerating well and helping mood. Continue Depakote 500 mg BID Patient increased lithium 150 mg twice a day r/t eduardo s/s at once a day and improved and monitor tremors in hands - Discuss Gene sight and switch from Abilify to Invega for Bipolar to control symptoms - will decrease Abilify to 20 mg daily and add Invega 3 mg daily patient will be on 2 anti-psychotics at tthis time while tapering off Abilify to control s/s discuss and educated on Invega injections for near future plan to taper off [place] r/t tremors - educated on labs for [place] and Depakote level. . Follow up [facility] and therapy scheduled- will make list of concerns for therapy and work on situational stressors, fears, and emotions in therapy labs completed 05/28/24 Valporic acid 36, [place] 0.4, WBC, CMP, CARDIAC enzymes scanned into chart LABS SCHEDULED today PCP will add [place] and Depakote Gene sight reviewed and Abilify may need to be decrease in future - patient reported been working well Tubal 05/30/24- 3. Insomnia - Reports sleep apnea -no CPAP presently not using- plan on getting new CPAP - Plan: a.. sleep hygiene b. Continue melatonin 30min before bed. c. melatonin 3 mg OTC d. Monitor sleep quality. 4. Suicidal Ideation- stable - Reports no passive suicidal thoughts - Denies plan/intent. a. Close monitoring. b. Encourage 428/911 hotline use if needed. c. Follow up [facility] and seeing therapist e. advised to go to the emergency room if thoughts get worse or unmanageable. 5. OCD- thoughts and behaviors fluvoxamine to 100mg. 6.ADHD Comination hx since childhood and rx at childhood and adult LIDIA-AE 2 TEST Reviewed test results are congruent for ADHD combination discuss and educated on non-stimulates and stimualtes reviewed Gene sight - Vyvanse, Dextroamphetamine, and Adderall has no proven genetic markers Focalin and Concerta moderate gene- drug interaction and genotype may impact drug mechanism of action and result in moderate reduce efficacy Plan: Guanfacine use as directed discuss and educated and will add Guanfacine 1 mg daily in am Qelbree- Moderate gene interaction- serum levls may be too low and lower doses may be needed Straterra- significant gene and drug interaction- serum levels too high and lower dose may be needed, CYP2D6 indicate increase side effects, but also greater symptom improvement with those find tx toleratable, potential gene interaction ADHD stimulates education Discuss with patient risk of misuse, abuse, and addiction before prescribing stimulant medicines. 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 Educate patients and their families on these serious risks, proper storage of the medicine, and proper disposal of any unused medicine. Educated patient will monitor Throughout treatment, regularly assess and monitor them for signs and symptoms of nonmedical use, addiction, and potential diversion, which may be evidenced by more frequent renewal. requests than warranted by the prescribed dosage. [facility] [place] prescription reviewed local pharmacy in [place], no early refills on control substance educated on non-stimulate and stimulates - Plan: Send refill to [facility] need 30 days at a time r/t insurance [facility] discuss Follow up [facility] and therapy scheduled- will make list of concerns for therapy and work on situational stressors, fears, and emotions in therapy educated on cannabis use as it can negatively impact mood, motivation, anxiety, sleep, focus/concentration /memory (vigilance, elasticity, processing and attention); can also contribute to development of psychosis. Cannabis/marijuana information: http_s://shaheed.nih.g ov/publications/janice gfacts/cannabis-mar ijuana http_s://www.Weight Wins/cannabis- gmn-fvnlibaz-opfrrz avinash-adhd/ http_s://www.maribel.o /Buqry-Nglgzy-Bxp ness/Mental-Health- Conditions http_s://psychcentr Isotera.com/depression/t fy-mzrdxrcso-jbchta xx-bp-ohrmvukwdk#tr eatments http__s://www.nimh. nih.gov/health/topi cs/pojmkb-wrumuw-ix dications http__s://www.maribel. org/Vtlvq-Chupmd-Zj lness/Treatments/Me ekqd-Jbdanw-Xfoapnz ions educated on all medications, benefits, side effects and risk, and educated on depression, anxiety, and ADHD, mood d/o and educated on compliance of medications, metabolic and movement d/o education appointment's, continue therapy discussion with patient about course of treatment and patient instructions. education on serotonin syndrome Discussed and educated pt regarding benzodiazepines are generally not intended for prolonged use and that use can cause tolerance, dependence, depression, and associated memory issues including dementias (this list is not exhaustive). Benzodiazepine use is generally not recommended concurrently with pain medications and/or other controlled substances educated on all medications, benefits, side effects and risk, and educated on depression, anxiety, and ADHD, mood d/o and educated on compliance of medications, metabolic and movement d/o education appointment is, continue therapy discussion with patient about course of treatment and patient instructions. education on serotonin syndrome SSRI/SNRI side effects discussed including but not limited to, gastric upset, nausea, vomiting, diarrhea and/or constipation, weight changes, sexual side effects including loss of libido, increased suicidal thoughts/behaviors in children and young adults, and serotonin syndrome. Second generation antipsychotics (SGAs) have metabolic syndrome issues with weight gain, increase in prolactin, increased waist circumference, increased lipids, and increased glucose. Thus routine monitoring of weight, metabolic labs, etc. is indicated. A general rank ordering of antipsychotics that have the greatest to the least risk of metabolic effects is olanzapine, quetiapine, risperidone, ziprasidone, and aripiprazole. However, weight gain can occur with all of these drugs and considerable variability exists among patients receiving the same drug regarding the risk of metabolic effects. Anti-psychotic agents not only increase the risk of metabolic disorder, they also increase the risk of CVA, akathisia, and movement disorders including EPS or tardive dyskinesia (more common with first generation antipsychotics) and more. 09/15/2024 Mixed obsessional thoughts and acts (ICD-10 - F42.2) Obsessive-Compulsiv e Disorder: Care Instructions material was published Obsessive-Compulsiv e Disorder: Care Instructions material was published, Obsessive-Compulsiv e Disorder: Care Instructions material was published 1. Anxiety -a. Patient reports improved anxiety level with intrusive thoughts.- therapy b. discuss and educated on all rx Increase Vistaril 10 mg up to three times a day for anxiety - therapy continue - Plan: continue insurance requires 30 days at a time with refills OCD A. fluvoxamine to 100mg. - anxiety and OCD- improved B. Monitor medication response. C. Encourage suicide hotline (381) use if needed. D. advised when to seek emergency services. 2. Bipolar Disorder educated on therapy and CBT/DBT. EDMR- will work on situational stressors and fears in therapy Educated on proper use light box and not to stay in basement in day and come upstairs in day and open curtains, and outside help depression - lithium and Depakote for manic and depression - reported tolerating well and helping mood. Continue Depakote 500 mg BID lithium 150 mg twice a day hx r/t eduardo s/s at once a day and improved and monitor tremors in hands - Discuss Gene sight and Invega for Bipolar to control symptoms - Invega 3 mg daily contiue discuss and educated on Invega injections for near future- pateint agreed plan to taper off [place] r/t tremors - educated on labs for [place] and Depakote level.- patient reported will have done Sunday . Follow up MIRELA and therapy scheduled- will make list of concerns for therapy and work on situational stressors, fears, and emotions in therapy labs completed 05/28/24 Valporic acid 36, [place] 0.4, WBC, CMP, CARDIAC enzymes scanned into chart Gene sight reviewed and Abilify may need to be decrease in future - patient reported been working well Tubal 05/30/24- 3. Insomnia - Reports sleep apnea -no CPAP presently not using- plan on getting new CPAP PCP ordered - Plan: a.. sleep hygiene b. Continue melatonin 30min before bed. c. melatonin 3 mg OTC d. Monitor sleep quality. 4. Suicidal Ideation- stable - Reports no passive suicidal thoughts - Denies plan/intent. a. Close monitoring. b. Encourage 988/911 hotline use if needed. c. Follow up MIRELA and seeing therapist e. advised to go to the emergency room if thoughts get worse or unmanageable. 5. OCD- thoughts and behaviors fluvoxamine to 100mg. 6.ADHD Comination hx since childhood and rx at childhood and adult LIDIA-AE 2 TEST Reviewed test results are congruent for ADHD combination discuss and educated on non-stimulates and stimualtes reviewed Gene sight - Vyvanse, Dextroamphetamine, and Adderall has no proven genetic markers Focalin and Concerta moderate gene- drug interaction and genotype may impact drug mechanism of action and result in moderate reduce efficacy Plan: Guanfacine use as directed discuss and educated and will add Guanfacine 1 mg daily in am Qelbree- Moderate gene interaction- serum levls may be too low and lower doses may be needed Straterra- significant gene and drug interaction- serum levels too high and lower dose may be needed, CYP2D6 indicate increase side effects, but also greater symptom improvement with those find tx toleratable, potential gene interaction ADHD stimulates education Discuss with patient risk of misuse, abuse, and addiction before prescribing stimulant medicines. 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 Educate patients and their families on these serious risks, proper storage of the medicine, and proper disposal of any unused medicine. Educated patient will monitor Throughout treatment, regularly assess and monitor them for signs and symptoms of nonmedical use, addiction, and potential diversion, which may be evidenced by more frequent renewal. requests than warranted by the prescribed dosage. Random UDS [place] prescription reviewed local pharmacy in [place], no early refills on control substance educated on non-stimulate and stimulates - Plan: Send refill to [facility] need 30 days at a time r/t insurance Gene Sight discuss Follow up MIRELA and therapy scheduled- will make list of concerns for therapy and work on situational stressors, fears, and emotions in therapy educated on cannabis use as it can negatively impact mood, motivation, anxiety, sleep, focus/concentration /memory (vigilance, elasticity, processing and attention); can also contribute to development of psychosis. Cannabis/marijuana information: http_s://shaheed.nih.g ov/publications/janice gfacts/cannabis-mar lopezuana http_s://www.Weight Wins/cannabis- wxj-fpaqwajh-qykydj avinash-adhd/ http_s://www.maribel.o rg/Yfdxu-Nebivi-Csp ness/Mental-Health- Conditions http_s://psychcentr Isotera.com/depression/t ua-ssmmdrzye-qvmxbv wq-uf-mgiqtapwzp#tr eatments http__s://www.nimh. nih.gov/health/topi cs/ipmaog-khjdxn-bn dications http__s://www.maribel. org/Ndjaj-Ahwhcc-It lness/Treatments/Me kvto-Dkhjwj-Jmxdxlh ions educated on all medications, benefits, side effects and risk, and educated on depression, anxiety, and ADHD, mood d/o and educated on compliance of medications, metabolic and movement d/o education appointment's, continue therapy discussion with patient about course of treatment and patient instructions. education on serotonin syndrome Discussed and educated pt regarding benzodiazepines are generally not intended for prolonged use and that use can cause tolerance, dependence, depression, and associated memory issues including dementias (this list is not exhaustive). Benzodiazepine use is generally not recommended concurrently with pain medications and/or other controlled substances educated on all medications, benefits, side effects and risk, and educated on depression, anxiety, and ADHD, mood d/o and educated on compliance of medications, metabolic and movement d/o education appointment is, continue therapy discussion with patient about course of treatment and patient instructions. education on serotonin syndrome SSRI/SNRI side effects discussed including but not limited to, gastric upset, nausea, vomiting, diarrhea and/or constipation, weight changes, sexual side effects including loss of libido, increased suicidal thoughts/behaviors in children and young adults, and serotonin syndrome. Second generation antipsychotics (SGAs) have metabolic syndrome issues with weight gain, increase in prolactin, increased waist circumference, increased lipids, and increased glucose. Thus routine monitoring of weight, metabolic labs, etc. is indicated. A general rank ordering of antipsychotics that have the greatest to the least risk of metabolic effects is olanzapine, quetiapine, risperidone, ziprasidone, and aripiprazole. However, weight gain can occur with all of these drugs and considerable variability exists among patients receiving the same drug regarding the risk of metabolic effects. Anti-psychotic agents not only increase the risk of metabolic disorder, they also increase the risk of CVA, akathisia, and movement disorders including EPS or tardive dyskinesia (more common with first generation antipsychotics) and more. 09/17/2024 Primary insomnia (ICD-10 - F51.01) Insomnia: Care Instructions material was published, Learning About Sleeping Well material was published Insomnia: Care Instructions material was published, Learning About Sleeping Well material was published, Insomnia: Care Instructions material was published, Learning About Sleeping Well material was published 02/22/2024 Mixed obsessional thoughts and acts (ICD-10 - F42.2) Obsessive-Compulsiv e Disorder: Care Instructions material was published Bipolar I mix episode- reviewed rx hx per patient list discuss and educated on Caplyta will add Caplyta 42 mg daily samples given # 28 copay card given presently on [place] 150 mg twice a day HX [place] toxicty 2022 obtain labs recently done Anxiety - educated on anxiety and therapy hx Ativan - stopped, Visatril- depression took rx x1 no control substance Insomnia r/t mental d/o- Tazodone presently taking 50 mg nightly not helping Add Melatonin 3-5 mg OTC Educated on rx OCD - continue therapy http_s://www.nimh.n ih.gov/health/topic s/xzfapd-elvyqw-voa ications http_s://www.maribel.o rg/Zvodl-Ybornk-Cij ness/Treatments/Men szx-Hfgrwj-Aiwbssrd ons Recommend decrease/stop cannabis use as it may be negatively impacting mood, motivation, anxiety, sleep, focus; can also contribute to development of psychosis Patient educated on all medications including potential benefits, side effects, risks. Educated on proper dosing schedule and importance of compliance educated on all medications, benefits, side effects and risk, and educated on depression, anxiety, and ADHD, mood d/o and educated on compliance of medications, metabolic and movement d/o education appointment is, continue therapy discussion with patient about course of treatment and patient instructions. education on serotonin syndrome SSRI/SNRI side effects discussed including but not limited to, gastric upset, nausea, vomiting, diarrhea and/or constipation, weight changes, sexual side effects including loss of libido, increased suicidal thoughts/behaviors in children and young adults, and serotonin syndrome. Second generation antipsychotics (SGAs) have metabolic syndrome issues with weight gain, increase in prolactin, increased waist circumference, increased lipids, and increased glucose. Thus routine monitoring of weight, metabolic labs, etc. is indicated. A general rank ordering of antipsychotics that have the greatest to the least risk of metabolic effects is olanzapine, quetiapine, risperidone, ziprasidone, and aripiprazole. However, weight gain can occur with all of these drugs and considerable variability exists among patients receiving the same drug regarding the risk of metabolic effects. Anti-psychotic agents not only increase the risk of metabolic disorder, they also increase the risk of CVA, akathisia, and movement disorders including EPS or tardive dyskinesia (more common with first generation antipsychotics) and more. Medication Management and Follow-Up - Plan: - Schedule follow-up appointments every 1-3 months to monitor the patient's response to the medication regimen. - Reinforce the importance of avoiding recreational drug use due to potential neurotoxicity and interactions with prescribed medications. [place] education [place] use reviewed. Risks include risks of toxicity, arrhythmias, cognitive impairment, changes in muscle coordination, weight gain, thyroid and parathyroid changes, polydipsia and polyuria, alopecia, tremor and teratogenicity ( defects). Recommend avoid in females (use contraception consistently). Routine lab monitoring may be required. Patient consented to treatment. Indications: acute eduardo (euphoric eduardo), bipolar prophylaxis, bipolar depression treatment or augmentation, unipolar depression as augmentation with antidepressants Average dose = I,500 mg/day, target serum level 0.8 [place] is known to reduce risk of suicide. 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,000 Renal: chronic renal insufficiency (after 10-20 years), acute renal failure, polyuria occurs in 50-70% [lithium antagonizes anti-diuretic hormone (ADH)], diabetes insipidus in 10% (treat with amiloride) Drug-drug interactions: increase in lithium: NSAIDs, GRZEGORZ inhibitors, angiotensin II antagonists 02/29/2024 Primary insomnia (ICD-10 - F51.01) Insomnia: Care Instructions material was published, Learning About Sleeping Well material was published mixed Bipolar- patient had a god response to Abilify 20 mg 2013 Will add Abilify 10 mg daily for Bipolar - educated on rx [place] 450 mg twice a day Continue therapy denies SI/HI no plans or intent educated on 988 and 911 go to nearest ER if have passive/active SI or plan or intent hx [place] toxicity at higher doses [place] education [place] use reviewed. Risks include risks of toxicity, arrhythmias, cognitive impairment, changes in muscle coordination, weight gain, thyroid and parathyroid changes, polydipsia and polyuria, alopecia, tremor and teratogenicity ( defects). Recommend avoid in females (use contraception consistently). Routine lab monitoring may be required. Patient consented to treatment. Indications: acute eduardo (euphoric eduardo), bipolar prophylaxis, bipolar depression treatment or augmentation, unipolar depression as augmentation with antidepressants Average dose = I,500 mg/day, target serum level 0.8 [place] is known to reduce risk of suicide. 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,000 Renal: chronic renal insufficiency (after 10-20 years), acute renal failure, polyuria occurs in 50-70% [lithium antagonizes anti-diuretic hormone (ADH)], diabetes insipidus in 10% (treat with amiloride) Drug-drug interactions: increase in lithium: NSAIDs, GRZEGORZ inhibitors, angiotensin II antagonists patient stopped Caplyta (muscle weaknes after 3 days and seenn in [place] [facility]) Anxiety- monitor in therapy primary Insomnia - Trazodone 50 mg at bedtime OCD- Patient had cardiac hx and 3 surgeries currently on Clomipramine 75 MG daily and will slowly decrease to stopping rx will decrease to Clomipramine 50 mg daily for next month then to 25 mg for a month on next visit discuss and educated on Fluxoxamine 50 mg daily for OCD Monitor for SI http_s://www.[facility].n ih.gov/health/topic s/nyyxqn-pfbtlj-gql ications http_s://www.maribel.o rg/Pattt-Lbkkby-Kxv ness/Treatments/Men kbe-Ppdqxv-Kwndgfvg ons discuss and educated pharmacogenomic panel- patient will have test next visit Patient educated on all medications including potential benefits, side effects, risks. Educated on proper dosing schedule and importance of compliance educated on all medications, benefits, side effects and risk, and educated on depression, anxiety, and ADHD, mood d/o and educated on compliance of medications, metabolic and movement d/o education appointment is, continue therapy discussion with patient about course of treatment and patient instructions. education on serotonin syndrome SSRI/SNRI side effects discussed including but not limited to, gastric upset, nausea, vomiting, diarrhea and/or constipation, weight changes, sexual side effects including loss of libido, increased suicidal thoughts/behaviors in children and young adults, and serotonin syndrome. Second generation antipsychotics (SGAs) have metabolic syndrome issues with weight gain, increase in prolactin, increased waist circumference, increased lipids, and increased glucose. Thus routine monitoring of weight, metabolic labs, etc. is indicated. A general rank ordering of antipsychotics that have the greatest to the least risk of metabolic effects is olanzapine, quetiapine, risperidone, ziprasidone, and aripiprazole. However, weight gain can occur with all of these drugs and considerable variability exists among patients receiving the same drug regarding the risk of metabolic effects. Anti-psychotic agents not only increase the risk of metabolic disorder, they also increase the risk of CVA, akathisia, and movement disorders including EPS or tardive dyskinesia (more common with first generation antipsychotics) and more. Medication Management and Follow-Up - Plan: - Schedule follow-up appointments every 1-3 months to monitor the patient's response to the medication regimen. - Reinforce the importance of avoiding recreational drug use due to potential neurotoxicity and interactions with prescribed medications. 03/19/2024 Mixed obsessional thoughts and acts (ICD-10 - F42.2) Obsessive-Compulsiv e Disorder: Care Instructions material was published, Obsessive-Compulsiv e Disorder: Care Instructions material was published 1. Bipolar Disorder - Manic Episode: - [place] dose was reduced to 300 mg twice daily due to worsening tremor; however, this has led to a manic episode. -monitor lithium level - Encourage the patient to avoid excessive caffeine intake, such as energy drinks, as this may exacerbate eduardo. - Reevaluate the need for medication adjustments if manic symptoms persist or worsen. 3. Depression: - Current depression score is 5 out of 10, an improvement from the usual 8 or 9. - Continue fluvoxamine 100 mg at bedtime and clomipramine 25 mg as prescribed. - Collaborate with Abby to adjust antidepressant medications if needed, ensuring they do not push the patient back into eduardo. 4. Anxiety: - Continue aripiprazole 15 mg at bedtime as prescribed for anxiety management. 5. Insomnia: - Continue estazolam, melatonin, and trazodone 50 mg as prescribed for sleep management. - Monitor sleep patterns and adjust medications if needed. 6. Impulsive Spending: - Encourage the patient to develop strategies for managing impulsive spending, such as seeking support from a therapist or financial counselor. - Monitor the impact of lithium on impulsive behavior and adjust the dose if necessary. Follow-up: - Schedule a follow-up appointment with Abby to reevaluate the patient's progress and make any necessary medication adjustments. 03/13/2024 Primary insomnia (ICD-10 - F51.01) Insomnia: Care Instructions material was published, Learning About Sleeping Well material was published, Insomnia: Care Instructions material was published, Learning About Sleeping Well material was published mixed Bipolar- patient had a good response to Abilify 20 mg 2013 Increase Abilify 15 mg daily for Bipolar eduardo - educated on rx Decrease [place] 300 mg twice a day- seen neuropsychiatry- r/o hand tremors to [place] Continue therapy denies SI/HI no plans or intent educated on 988 and 911 go to nearest ER if have passive/active SI or plan or intent hx [place] toxicity at higher doses [place] education [place] use reviewed. Risks include risks of toxicity, arrhythmias, cognitive impairment, changes in muscle coordination, weight gain, thyroid and parathyroid changes, polydipsia and polyuria, alopecia, tremor and teratogenicity ( defects). Recommend avoid in females (use contraception consistently). Routine lab monitoring may be required. Patient consented to treatment. Indications: acute eduardo (euphoric eduardo), bipolar prophylaxis, bipolar depression treatment or augmentation, unipolar depression as augmentation with antidepressants Average dose = I,500 mg/day, target serum level 0.8 [place] is known to reduce risk of suicide. 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,000 Renal: chronic renal insufficiency (after 10-20 years), acute renal failure, polyuria occurs in 50-70% [lithium antagonizes anti-diuretic hormone (ADH)], diabetes insipidus in 10% (treat with amiloride) Drug-drug interactions: increase in lithium: NSAIDs, GRZEGORZ inhibitors, angiotensin II antagonists Anxiety- monitor in therapy primary Insomnia - Trazodone 50 mg at bedtime OCD- Patient had cardiac hx and 3 surgeries decrease Clomipramine 25 mg for a month plan to stop in a month discuss and educated on increase Fluxoxamine 100 mg daily for OCD- tolerating well no s/e Monitor for SI http_s://www.[facility].n ih.gov/health/topic s/fmwcfz-ukicwh-efv ications http_s://www.maribel.o rg/Utdxy-Dcyoci-Ful ness/Treatments/Men qzh-Owkgdo-Pnhlpitq ons discuss and educated pharmacogenomic panel- patient will have test next visit Patient educated on all medications including potential benefits, side effects, risks. Educated on proper dosing schedule and importance of compliance educated on all medications, benefits, side effects and risk, and educated on depression, anxiety, and ADHD, mood d/o and educated on compliance of medications, metabolic and movement d/o education appointment is, continue therapy discussion with patient about course of treatment and patient instructions. education on serotonin syndrome SSRI/SNRI side effects discussed including but not limited to, gastric upset, nausea, vomiting, diarrhea and/or constipation, weight changes, sexual side effects including loss of libido, increased suicidal thoughts/behaviors in children and young adults, and serotonin syndrome. Second generation antipsychotics (SGAs) have metabolic syndrome issues with weight gain, increase in prolactin, increased waist circumference, increased lipids, and increased glucose. Thus routine monitoring of weight, metabolic labs, etc. is indicated. A general rank ordering of antipsychotics that have the greatest to the least risk of metabolic effects is olanzapine, quetiapine, risperidone, ziprasidone, and aripiprazole. However, weight gain can occur with all of these drugs and considerable variability exists among patients receiving the same drug regarding the risk of metabolic effects. Anti-psychotic agents not only increase the risk of metabolic disorder, they also increase the risk of CVA, akathisia, and movement disorders including EPS or tardive dyskinesia (more common with first generation antipsychotics) and more. Medication Management and Follow-Up - Plan: - Schedule follow-up appointments every 1-3 months to monitor the patient's response to the medication regimen. - Reinforce the importance of avoiding recreational drug use due to potential neurotoxicity and interactions with prescribed medications. 04/01/2024 Primary insomnia (ICD-10 - F51.01) Insomnia: Care Instructions material was published, Learning About Sleep[facility] Well material was published, Insomnia: Care Instructions material was published, Learning [employer] [facility] Well material was published 1. Bipolar Disorder - Manic Episode: - [place] dose was reduced to 300 mg twice daily due to worsening tremor; however, this has led to a manic episode continue over last month increase aripiprazole 20 mg at bedtime -monitor lithium level - Encourage the patient to avoid excessive caffeine intake, such as energy drinks, as this may exacerbate eduardo. - Reevaluate the need for medication adjustments if manic symptoms persist or worsen. 3. Depression: - Continue fluvoxamine 100 mg at bedtime and d/c clomipramine 25 mg as prescribed. 4. Anxiety: - increase aripiprazole 20 mg at bedtime as prescribed for anxiety management. 5. Insomnia: - Continue estazolam, melatonin, and trazodone 50 mg as prescribed for sleep management. - Monitor sleep patterns and adjust medications if needed. hx heart issues rx hx Vraylar, Abilify, Caplyta (muscle weakness), [place] (tremors) Fluvoxamine, Clomipramine, estazolam, melatonin, and trazodone 50 mg 6. Impulsive Spending: - Encourage the patient to develop strategies for managing impulsive spending, such as seeking support from a therapist or financial counselor. - Monitor the impact of lithium on impulsive behavior and adjust the dose if necessary. Follow-up: 04/10/2024 Primary insomnia (ICD-10 - F51.01) Insomnia: Care Instructions material was published, Learning About Sleeping Well material was published, Insomnia: Care Instructions material was published, [facility] Well material was published 1. Bipolar Disorder - Manic Episode: discuss Depakote for eduardo and educated on rx will add Depakote ER 250 MG TWICE a day for Bipolar eduardo - educated on labs with Depakote and BCP presently on planning on tubal plan to titrate off [place] next visit Risk- Depakote can cause major congenital malformations incl. neural tube defects, decr. IQ scores, neurodevelopmental disorders after in utero exposure; contraindicated for migraine prophylaxis use in and women of reproductive potential w/o effective contraception; should not be used for epilepsy or bipolar disorder use in and women planning to become unless other tx options have failed or are unacceptable; women should use effective contraception during tx - [place] dose was reduced to 300 mg twice daily due to worsening tremor; however, this has led to a manic episode continue over last 6 weeks aripiprazole 20 mg at bedtime recently increased -monitor lithium level - Encourage the patient to avoid excessive caffeine intake, such as energy drinks, as this may exacerbate eduardo. - Reevaluate the need for medication adjustments if manic symptoms persist or worsen. 3. Depression: - Continue fluvoxamine 100 mg at bedtime 4. Anxiety: - aripiprazole 20 mg at bedtime as prescribed for anxiety management. 5. Insomnia: - Continue estazolam, melatonin, and trazodone 50 mg as prescribed for sleep management. - Monitor sleep patterns and adjust medications if needed. hx heart issues rx hx Vraylar, Abilify, Caplyta (muscle weakness), [place] (tremors) Fluvoxamine, Clomipramine, estazolam, melatonin, and trazodone 50 mg 6. Impulsive Spending: - Encourage the patient to develop strategies for managing impulsive spending, such as seeking support from a therapist or financial counselor. - Monitor the impact of lithium on impulsive behavior and adjust the dose if necessary. labs reviewd 01/27 scanned into chart Follow-up: 05/05/2024 Mixed obsessional thoughts and acts (ICD-10 - F42.2) 1. Anxiety - Patient reports 7/10 anxiety level with intrusive thoughts. - Medications don't seem effective. - Plan: a. increase aripiprazole to 30mg. b. Decrease fluvoxamine to 50mg. c. Monitor medication response. d. Encourage suicide hotline (988) use if needed. e. advised when to seek emergency services. 2. Bipolar Disorder - Transitioning from lithium to Depakote for manic depression. - No changes noticed with adjustment. - Plan: a. Continue Depakote 500mg BID and lithium 150mg BID until therapeutic Depakote level. b. Follow up on to assess progress. 3. Insomnia - Reports 9-10 hours sleep with 2am awakenings. Trazodone not helping. - Plan: a. Discontinue trazodone. b. Continue melatonin 30min before bed. c. Add melatonin at 2am if awake. d. Monitor sleep quality. 4. Suicidal Ideation - Reports passive suicidal thoughts 4x/day. - Denies plan/intent. - Plan: a. Close monitoring. b. Encourage 988 hotline use if needed. c. Follow up on for medication effect. e. advised to go to the emergency room if thoughts get worse or unmanageable. 5. Increased Appetite - Reports constant hunger. - Plan: a. Monitor appetite/weight. b. Discuss healthy eating habits. 6. Headache - Reports headaches, not severe. - Plan: a. Monitor frequency/severity. b. Consider medication side effects. c. Recommend OTC relief as needed. 7. Medication Refill - Fluvoxamine refill needed, 3 pills left. - increase Aripiprazole to 30 mg HS. - Plan: Send refill to [facility]. 8. Follow-up - Appointment with [facility] on . - Plan: Continue monitoring progress and medication response. 04/24/2024 Mixed obsessional thoughts and acts (ICD-10 - F42.2) Obsessive-Compulsiv e Disorder: Care Instructions material was published, Obsessive-Compulsiv e Disorder: Care Instructions material was published 1. Bipolar Disorder - discuss Depakote for eduardo and educated on rx will increase Depakote ER 500 MG TWICE a day for Bipolar eduardo - improved on Depakote since 04/10/24 (out of eduardo) educated on labs with Depakote and BCP presently on planning on tubal plan to titrate off [place] in near future Risk- Depakote can cause major congenital malformations incl. neural tube defects, decr. IQ scores, neurodevelopmental disorders after in utero exposure; contraindicated for migraine prophylaxis use in and women of reproductive potential w/o effective contraception; should not be used for epilepsy or bipolar disorder use in and women planning to become unless other tx options have failed or are unacceptable; women should use effective contraception during tx - [place] will decrease dose to 150 mg twice daily aripiprazole 20 mg at bedtime -monitor lithium level and Depakote levels - Encourage the patient to avoid excessive caffeine intake, such as energy drinks, as this may exacerbate eduardo. - Reevaluate the need for medication adjustments if manic symptoms persist or worsen. 3. Depression: - Continue fluvoxamine 100 mg at bedtime 4. Anxiety: - aripiprazole 20 mg at bedtime as prescribed for anxiety management. 5. Insomnia: - Continue estazolam, melatonin, and trazodone 50 mg as prescribed for sleep management. - Monitor sleep patterns and adjust medications if needed. hx heart issues rx hx Vraylar, Abilify, Caplyta (muscle weakness), [place] (tremors) Fluvoxamine, Clomipramine, estazolam, melatonin, and trazodone 50 mg 6. Impulsive Spending: with eduardo - improved with Depakote - Encourage the patient to develop strategies for managing impulsive spending, such as seeking support from a therapist or financial counselor. - Monitor the impact of lithium and Depakote, Abilify on impulsive behavior and adjust the dose if necessary. labs reviewd 01/27 scanned into chart Follow-up: 2 weeks 05/15/2024 Mixed obsessional thoughts and acts (ICD-10 - F42.2) Obsessive-Compulsiv e Disorder: Care Instructions material was published Obsessive-Compulsiv e Disorder: Care Instructions material was published 1. Anxiety -a. Patient reports anxiety level with intrusive thoughts.- therapy b. discuss and educated on Vistaril 10 mg three tmes a day PRN for anxiety and may take 1/2 dose (5 mg) in day if make tired - therapy continue - Plan: a. b. fluvoxamine to 100mg. - anxiety and OCD c. Monitor medication response. d. Encourage suicide hotline (724) use if needed. e. advised when to seek emergency services. 2. Bipolar Disorder - lithium and Depakote for manic and depression - reported tolerating well and helping mood. - No changes - Plan: a. Continue Depakote 500mg BID and lithium 150mg BID - educated on labs for [place] and Depakote level. b. Follow up [facility] and therapy scheduled C. Abilify 30 mg at bedtime- patient reported has not picked up yet - prescribed 05/05/24 from [facility] walk in clinic planned Tubal 05/29/24 3. Insomnia - Reports 9-10 hours - Plan: a.. sleep hygiene b. Continue melatonin 30min before bed. c. melatonin 3 mg OTC d. Monitor sleep quality. Trazodone 50 mg PRN 4. Suicidal Ideation- stable - Reports no passive suicidal thoughts - Denies plan/intent. - Plan: a. Close monitoring. b. Encourage 988 hotline use if needed. c. Follow up [facility] and seeing therapist e. advised to go to the emergency room if thoughts get worse or unmanageable. 5. OCD- increase thoughts and behaviors on 50 mg dose A. increase fluvoxamine to 100mg. 6. Appetite normal now - Reports constant hunger. - Plan: a. Monitor appetite/weight. b. Discuss healthy eating habits. c. heart healthy diet and excise 7. Headache - Reports headaches, improved - Plan: see PCP patient will schedule appt and discuss HTN a. Monitor frequency/severity. b. Consider medication side effects. c. Recommend OTC relief as needed. d. sleep hygiene education 8. Medication Refill - Plan: Send refill to [facility] Recommend decrease/stop cannabis use as it can negatively impact mood, motivation, anxiety, sleep, focus/concentration /memory (vigilance, elasticity, processing and attention); can also contribute to development of psychosis. Cannabis/marijuana information: http_s://shaheed.nih.g ov/publications/janice gfacts/cannabis-mar ijuana http_s://www.[employer] Rew[employer].Safecare/cannabis- ctu-oqdfbquy-ahkdhp avinash-adhd/ http_s://www.maribel.o rg/Zwahg-Ltabep-Uev ness/Mental-Health- Conditions http_s://psychcentr al.com/depression/t oy-vhuljpmky-bbiwbk bc-yf-rnewsuinit#tr eatments http__s://www.nimh. nih.gov/health/topi cs/yeuant-vqvibt-vx dications http__s://www.maribel. org/Necke-Bzgizm-Yq lness/Treatments/Me svqa-Qhbqjw-Pdrawut ions educated on all medications, benefits, side effects and risk, and educated on depression, anxiety, and ADHD, mood d/o and educated on compliance of medications, metabolic and movement d/o education appointment's, continue therapy discussion with patient about course of treatment and patient instructions. education on serotonin syndrome Discussed and educated pt regarding benzodiazepines are generally not intended for prolonged use and that use can cause tolerance, dependence, depression, and associated memory issues including dementias (this list is not exhaustive). Benzodiazepine use is generally not recommended concurrently with pain medications and/or other controlled substances educated on all medications, benefits, side effects and risk, and educated on depression, anxiety, and ADHD, mood d/o and educated on compliance of medications, metabolic and movement d/o education appointment is, continue therapy discussion with patient about course of treatment and patient instructions. education on serotonin syndrome SSRI/SNRI side effects discussed including but not limited to, gastric upset, nausea, vomiting, diarrhea and/or constipation, weight changes, sexual side effects including loss of libido, increased suicidal thoughts/behaviors in children and young adults, and serotonin syndrome. Second generation antipsychotics (SGAs) have metabolic syndrome issues with weight gain, increase in prolactin, increased waist circumference, increased lipids, and increased glucose. Thus routine monitoring of weight, metabolic labs, etc. is indicated. A general rank ordering of antipsychotics that have the greatest to the least risk of metabolic effects is olanzapine, quetiapine, risperidone, ziprasidone, and aripiprazole. However, weight gain can occur with all of these drugs and considerable variability exists among patients receiving the same drug regarding the risk of metabolic effects. Anti-psychotic agents not only increase the risk of metabolic disorder, they also increase the risk of CVA, akathisia, and movement disorders including EPS or tardive dyskinesia (more common with first generation antipsychotics) and more. 10/06/2024 Primary insomnia (ICD-10 - F51.01) Insomnia: Care Instructions material was published, [facility] About [facility] Well material was published Insomnia: Care Instructions material was published, [facility] About [facility] Well material was published, Insomnia: Care Instructions material was published, [facility] material was published Insomnia: Care Instructions material was published, [facility] material was published Insomnia: Care Instructions material was published, [facility] Well material was published, Insomnia: Care Instructions material was published, [facility] material was published 1. Anxiety -a. Patient reports anxiety level with intrusive thoughts.- therapy b. discuss and educated on all rx Increase Vistaril 25 mg three time a day for anxiety- reported 10 mg dose not helping - therapy continue- discuss DBT/CBT therapy discuss IOP program discuss journaling, coping skills, and identify triggers insurance requires 30 days at a time with refills 2. OCD A. fluvoxamine to 100mg. - anxiety and OCD- B. Monitor medication response. C. Encourage suicide hotline (078) use if needed. D. advised when to seek emergency services. 3. Bipolar Disorder educated on therapy and CBT/DBT. EDMR- will work on situational stressors and fears in therapy Educated on proper use light box and not to stay in basement in day and come upstairs in day and open curtains, and outside help depression - lithium and Depakote for manic and depression - reported tolerating well and helping mood. Continue Depakote 500 mg BID lithium 150 mg twice a day hx r/t eduardo s/s at once a day and improved and monitor tremors in hands - labs 09/30 [place] 0.3 Depakote 33.6 Discuss Gene sight and Invega for Bipolar to control symptoms - Invega 3 mg daily continue discuss and educated on Invega injections for near future- pateint agreed plan to taper off [place] r/t tremors - educated on labs for [place] and Depakote level.- [facility] . Follow up [facility] and therapy scheduled- will make list of concerns for therapy and work on situational stressors, fears, and emotions in therapy labs completed 09/30 Gene sight reviewed and Abilify may need to be decrease in future - patient reported been working well Tubal 05/30/24- 3. Insomnia - Reports sleep apnea -no CPAP presently not using- plan on getting new CPAP- PCP ordered - Plan: a.. sleep hygiene b. Continue melatonin 30min before bed. c. melatonin 3 mg OTC d. Monitor sleep quality. 4. Suicidal Ideation- stable - Reports no passive suicidal thoughts - Denies plan/intent. a. Close monitoring. b. Encourage 988/911 hotline use if needed. c. Follow up [facility] and seeing therapist e. advised to go to the emergency room if thoughts get worse or unmanageable. 5. OCD- thoughts and behaviors fluvoxamine to 100mg. 6.ADHD Comination hx since childhood and rx at childhood and adult LIDIA-AE 2 TEST Reviewed test results are congruent for ADHD combination discuss and educated on non-stimulates and stimualtes reviewed Gene sight - Vyvanse, Dextroamphetamine, and Adderall has no proven genetic markers Focalin and Concerta moderate gene- drug interaction and genotype may impact drug mechanism of action and result in moderate reduce efficacy discuss and educated ] Guanfacine 1 mg daily in am Qelbree- Moderate gene interaction- serum levls may be too low and lower doses may be needed Straterra- significant gene and drug interaction- serum levels too high and lower dose may be needed, CYP2D6 indicate increase side effects, but also greater symptom improvement with those find tx toleratable, potential gene interaction ADHD stimulates education Discuss with patient risk of misuse, abuse, and addiction before prescribing stimulant medicines. 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 Educate patients and their families on these serious risks, proper storage of the medicine, and proper disposal of any unused medicine. Educated patient will monitor Throughout treatment, regularly assess and monitor them for signs and symptoms of nonmedical use, addiction, and potential diversion, which may be evidenced by more frequent renewal. requests than warranted by the prescribed dosage. [facility] prescription reviewed local pharmacy in [facility], no early refills on control substance educated on non-stimulate and stimulates - Plan: Send refill to [facility] need 30 days at a time r/t insurance Gene Sight discuss Follow up [facility] and therapy scheduled- will make list of concerns for therapy and work on situational stressors, fears, and emotions in therapy educated on cannabis use as it can negatively impact mood, motivation, anxiety, sleep, focus/concentration /memory (vigilance, elasticity, processing and attention); can also contribute to development of psychosis. Cannabis/marijuana information: http_s://shaheed.nih.g ov/publications/janice gfacts/cannabis-mar ijuana http_s://www.[employer].Safecare/cannabis- kqt-wqhkgibu-pltqff aivnash-adhd/ http_s://www.maribel.o rg/Xmbyx-Mmejgv-Dsc ness/Mental-Health- Conditions http_s://psychcentr al.com/depression/t xg-qhfkmfunk-vylitg we-ky-awsjdqfzyz#tr eatments http__s://www.nimh. nih.gov/health/topi cs/pcyyjx-zjwbdk-iq dications http__s://www.maribel. org/Ezwms-Vmxdlt-Gh lness/Treatments/Me vcwy-Pizvmt-Momtsnp ions educated on all medications, benefits, side effects and risk, and educated on depression, anxiety, and ADHD, mood d/o and educated on compliance of medications, metabolic and movement d/o education appointment's, continue therapy discussion with patient about course of treatment and patient instructions. education on serotonin syndrome Discussed and educated pt regarding benzodiazepines are generally not intended for prolonged use and that use can cause tolerance, dependence, depression, and associated memory issues including dementias (this list is not exhaustive). Benzodiazepine use is generally not recommended concurrently with pain medications and/or other controlled substances educated on all medications, benefits, side effects and risk, and educated on depression, anxiety, and ADHD, mood d/o and educated on compliance of medications, metabolic and movement d/o education appointment is, continue therapy discussion with patient about course of treatment and patient instructions. education on serotonin syndrome SSRI/SNRI side effects discussed including but not limited to, gastric upset, nausea, vomiting, diarrhea and/or constipation, weight changes, sexual side effects including loss of libido, increased suicidal thoughts/behaviors in children and young adults, and serotonin syndrome. Second generation antipsychotics (SGAs) have metabolic syndrome issues with weight gain, increase in prolactin, increased waist circumference, increased lipids, and increased glucose. Thus routine monitoring of weight, metabolic labs, etc. is indicated. A general rank ordering of antipsychotics that have the greatest to the least risk of metabolic effects is olanzapine, quetiapine, risperidone, ziprasidone, and aripiprazole. However, weight gain can occur with all of these drugs and considerable variability exists among patients receiving the same drug regarding the risk of metabolic effects. Anti-psychotic agents not only increase the risk of metabolic disorder, they also increase the risk of CVA, akathisia, and movement disorders including EPS or tardive dyskinesia (more common with first generation antipsychotics) and more. 11/13/2024 Primary insomnia (ICD-10 - F51.01) Insomnia: Care Instructions material was published, Learning About Sleeping Well material was published Insomnia: Care Instructions material was published, Learning About Sleeping Well material was published, Insomnia: Care Instructions material was published, Learning About Sleep[facility] Well material was published Insomnia: Care Instructions material was published, Learning About Sleep[facility] Well material was published Insomnia: Care Instructions material was published, Learning About Sleeping Well material was published, Insomnia: Care Instructions material was published, Learning About Sleeping Well material was published 1. Anxiety -a. Patient reports anxiety level with intrusive thoughts and fear of night and sleep, and being alone discuss making list of thoughts, goals, plans and place in action discuss activity for day sleep hygiene education continue therapy . discuss and educated on all rx Decrease Vistaril 10 mg three time a day for anxiety- reported 25 mg dose more on edge - therapy continue- discuss DBT/CBT therapy discuss IOP program discuss journaling, coping skills, and identify triggers insurance requires 30 days at a time with refills 2. OCD A. fluvoxamine to 100mg. - anxiety and OCD- helping B. Monitor medication response. Encourage suicide hotline (068) use if needed.. advised when to seek emergency services. 3. Bipolar Disorder educated on therapy and CBT/DBT. ED- will work on situational stressors and fears in therapy Educated on proper use light box and not to stay in basement in day and come upstairs in day and open curtains, and outside help depression - lithium and Depakote for manic and depression - reported tolerating well and helping mood. Continue Depakote 500 mg BID lithium 150 mg twice a day hx r/t eduardo s/s at once a day and improved and monitor tremors in hands - labs 09/30 [place] 0.3 Depakote 33.6 Discuss Gene sight and Invega for Bipolar to control symptoms - Invega 3 mg daily continue discuss and educated on Invega injections for near future- Risk- Depakote can cause major congenital malformations incl. neural tube defects, decr. IQ scores, neurodevelopmental disorders after in utero exposure; contraindicated for migraine prophylaxis use in and women of reproductive potential w/o effective contraception; should not be used for epilepsy or bipolar disorder use in and women planning to become unless other tx options have failed or are unacceptable; women should use effective contraception during tx plan to taper off [place] r/t tremors - educated on labs for [place] and Depakote level.- [facility] . Follow up [facility] and therapy scheduled- will make list of concerns for therapy and work on situational stressors, fears, and emotions in therapy labs completed 09/30 Gene sight reviewed and Abilify may need to be decrease in future - patient reported been working well Tubal 05/30/24- 3. Insomnia - Reports sleep apnea -no CPAP presently not using- plan on getting new CPAP- PCP ordered- still waiting on CPAP 11/13/24 - Plan: a.. sleep hygiene b. Continue melatonin 30 min before bed. c. melatonin 5-10 mg OTC d. Monitor sleep quality. discuss sleep hygeine habits 4. Suicidal Ideation- stable - Reports no passive suicidal thoughts - Denies plan/intent. a. Close monitoring. b. Encourage 805/491 hotline use if needed. c. Follow up [facility] and seeing therapist e. advised to go to the emergency room if thoughts get worse or unmanageable. 5. OCD- thoughts and behaviors fluvoxamine to 100mg. 6.ADHD Comination hx since childhood and rx at childhood and adult LIDIA-AE 2 TEST Reviewed test results are congruent for ADHD combination hx Wellbutrin 300 mg dose - SI and eduardo discuss and educated on non-stimulates and stimualtes reviewed Gene sight - Vyvanse, Dextroamphetamine, and Adderall has no proven genetic markers Focalin and Concerta moderate gene- drug interaction and genotype may impact drug mechanism of action and result in moderate reduce efficacy discuss and educated Guanfacine 1 mg daily in am- reported not helping- Qelbree- Moderate gene interaction- serum levls may be too low and lower doses may be needed Straterra- significant gene and drug interaction- serum levels too high and lower dose may be needed, CYP2D6 indicate increase side effects, but also greater symptom improvement with those find tx toleratable, potential gene interaction ADHD stimulates education Discuss with patient risk of misuse, abuse, and addiction before prescribing stimulant medicines. 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 Educate patients and their families on these serious risks, proper storage of the medicine, and proper disposal of any unused medicine. Educated patient will monitor Throughout treatment, regularly assess and monitor them for signs and symptoms of nonmedical use, addiction, and potential diversion, which may be evidenced by more frequent renewal. requests than warranted by the prescribed dosage. [facility] [place], no early refills on control substance educated on non-stimulate and stimulates - Plan: Send refill to [facility] need 30 days at a time r/t insurance Gene Sight discuss Follow up MIRELA and therapy scheduled- will make list of concerns for therapy and work on situational stressors, fears, and emotions in therapy educated on cannabis use as it can negatively impact mood, motivation, anxiety, sleep, focus/concentration /memory (vigilance, elasticity, processing and attention); can also contribute to development of psychosis. Cannabis/marijuana information: http_s://shaheed.nih.g ov/publications/janice gfacts/cannabis-mar ijuana http_s://www.Weight Wins/cannabis- inh-xmmqazfu-hjbyjg avinash-adhd/ http_s://www.maribel.o rg/Qbdzr-Zvyqmi-Yoj ness/Mental-Health- Conditions http_s://psych5 CUPS and some sugarr Isotera.Safecare/depression/t jg-mcbqnjvxk-hxlovb yt-mq-usltybauvz#tr eatments http__s://www.nimh. nih.gov/health/topi cs/lplibs-matukf-bu dications http__s://www.maribel. org/Fhplf-Cyjfsl-Vx lness/Treatments/Me bebh-Ybusju-Hygacae ions educated on all medications, benefits, side effects and risk, and educated on depression, anxiety, and ADHD, mood d/o and educated on compliance of medications, metabolic and movement d/o education appointment's, continue therapy discussion with patient about course of treatment and patient instructions. education on serotonin syndrome Discussed and educated pt regarding benzodiazepines are generally not intended for prolonged use and that use can cause tolerance, dependence, depression, and associated memory issues including dementias (this list is not exhaustive). Benzodiazepine use is generally not recommended concurrently with pain medications and/or other controlled substances educated on all medications, benefits, side effects and risk, and educated on depression, anxiety, and ADHD, mood d/o and educated on compliance of medications, metabolic and movement d/o education appointment is, continue therapy discussion with patient about course of treatment and patient instructions. education on serotonin syndrome SSRI/SNRI side effects discussed including but not limited to, gastric upset, nausea, vomiting, diarrhea and/or constipation, weight changes, sexual side effects including loss of libido, increased suicidal thoughts/behaviors in children and young adults, and serotonin syndrome. Second generation antipsychotics (SGAs) have metabolic syndrome issues with weight gain, increase in prolactin, increased waist circumference, increased lipids, and increased glucose. Thus routine monitoring of weight, metabolic labs, etc. is indicated. A general rank ordering of antipsychotics that have the greatest to the least risk of metabolic effects is olanzapine, quetiapine, risperidone, ziprasidone, and aripiprazole. However, weight gain can occur with all of these drugs and considerable variability exists among patients receiving the same drug regarding the risk of metabolic effects. Anti-psychotic agents not only increase the risk of metabolic disorder, they also increase the risk of CVA, akathisia, and movement disorders including EPS or tardive dyskinesia (more common with first generation antipsychotics) and more. 01/30/2025 Mixed obsessional thoughts and acts (ICD-10 - F42.2) Obsessive-Compulsiv e Disorder: Care Instructions material was published Obsessive-Compulsiv e Disorder: Care Instructions material was published, Obsessive-Compulsiv e Disorder: Care Instructions material was published Obsessive-Compulsiv e Disorder: Care Instructions material was published Obsessive-Compulsiv e Disorder: Care Instructions material was published, Obsessive-Compulsiv e Disorder: Care Instructions material was published 1. Anxiety hx Patient reports anxiety level with intrusive thoughts and fear of night and sleep, and being alone discuss making list of thoughts, goals, plans and place in action discuss activity for day sleep hygiene education continue therapy discuss and educated on all rx Vistaril 10 mg three time a day for anxiety- HX Vistaril reported 25 mg dose more on edge - therapy continue- discuss DBT/CBT therapy discuss IOP program discuss journaling, coping skills, and identify triggers insurance requires 30 days at a time with refills 2. OCD A. fluvoxamine to 100mg. - anxiety and OCD- helping B. Monitor medication response. Encourage suicide hotline (555) use if needed.. advised when to seek emergency services. 3. Bipolar Disorder educated on therapy and CBT/DBT. EDMR- will work on situational stressors and fears in therapy Educated on proper use light box and not to stay in basement in day and come upstairs in day and open curtains, and outside help depression - lithium and Depakote for manic and depression - reported tolerating well and helping mood. Continue Depakote 500 mg BID lithium 150 mg twice a day hx r/t eduardo s/s at once a day and improved and monitor tremors in hands - labs 10/28 [place] 0.3 Depakote 33.6 Discuss Gene sight and Invega for Bipolar to control symptoms - Invega 3 mg daily continue discuss and educated on Invega injections for near future- Risk- Depakote can cause major congenital malformations incl. neural tube defects, decr. IQ scores, neurodevelopmental disorders after in utero exposure; contraindicated for migraine prophylaxis use in and women of reproductive potential w/o effective contraception; should not be used for epilepsy or bipolar disorder use in and women planning to become unless other tx options have failed or are unacceptable; women should use effective contraception during tx plan to taper off [place] r/t tremors - educated on labs for [place] and Depakote level.- [facility] . Follow up MIRELA and therapy scheduled- will make list of concerns for therapy and work on situational stressors, fears, and emotions in therapy labs completed 09/30 Gene sight reviewed and Abilify may need to be decrease in future - patient reported been working well Tubal 05/30/24- 3. Insomnia - Reports sleep apnea -no CPAP presently not using- plan on getting new CPAP- PCP ordered- still waiting on CPAP 11/13/24 - Plan: a.. sleep hygiene b. Continue melatonin 30 min before bed. c. melatonin 5-10 mg OTC d. Monitor sleep quality. discuss sleep hygeine habits 4. Suicidal Ideation- stable - Reports no passive suicidal thoughts - Denies plan/intent. a. Close monitoring. b. Encourage 865/1 hotline use if needed. c. Follow up MIRELA and seeing therapist e. advised to go to the emergency room if thoughts get worse or unmanageable. 5. OCD- thoughts and behaviors fluvoxamine to 100mg. 6.ADHD Comination hx since childhood and rx at childhood and adult LIDIA-AE 2 TEST Reviewed test results are congruent for ADHD combination hx Wellbutrin 300 mg dose - SI and eduardo discuss and educated on non-stimulates and stimualtes reviewed Gene sight - Vyvanse, Dextroamphetamine, and Adderall has no proven genetic markers Focalin and Concerta moderate gene- drug interaction and genotype may impact drug mechanism of action and result in moderate reduce efficacy discuss and educated Guanfacine 1 mg daily in am- reported wants to restart at 1 mg dose since 2 mg dose caused dry mouth- Qelbree- Moderate gene interaction- serum levls may be too low and lower doses may be needed Straterra- significant gene and drug interaction- serum levels too high and lower dose may be needed, CYP2D6 indicate increase side effects, but also greater symptom improvement with those find tx toleratable, potential gene interaction ADHD stimulates education Discuss with patient risk of misuse, abuse, and addiction before prescribing stimulant medicines. 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 Educate patients and their families on these serious risks, proper storage of the medicine, and proper disposal of any unused medicine. Educated patient will monitor Throughout treatment, regularly assess and monitor them for signs and symptoms of nonmedical use, addiction, and potential diversion, which may be evidenced by more frequent renewal. requests than warranted by the prescribed dosage. Random [facility] [place] prescription reviewed local pharmacy in [facility], no early refills on control substance educated on non-stimulate and stimulates - Plan: Send refill to [facility] need 30 days at a time r/t insurance Gene Sight discuss Follow up MIRELA and therapy scheduled- will make list of concerns for therapy and work on situational stressors, fears, and emotions in therapy educated on cannabis use as it can negatively impact mood, motivation, anxiety, sleep, focus/concentration /memory (vigilance, elasticity, processing and attention); can also contribute to development of psychosis. Cannabis/marijuana information: http_s://shaheed.nih.g ov/publications/janice gfacts/cannabis-mar ijuana http_s://www.[employer].Safecare/cannabis- fvh-qdufywaw-vtxtxn avinash-adhd/ http_s://www.maribel.o rg/Zmldx-Rxixez-Uua ness/Mental-Health- Conditions http_s://psychcentr al.com/depression/t po-aeunwtsme-ypknub ba-zd-lyzioxufzd#tr eatments http__s://www.nimh. nih.gov/health/topi cs/addrwo-xsyaqq-yk dications http__s://www.maribel. org/Cpfxv-Sxubzk-Qh lness/Treatments/Me lols-Znkcml-Kchigci ions educated on all medications, benefits, side effects and risk, and educated on depression, anxiety, and ADHD, mood d/o and educated on compliance of medications, metabolic and movement d/o education appointment's, continue therapy discussion with patient about course of treatment and patient instructions. education on serotonin syndrome Discussed and educated pt regarding benzodiazepines are generally not intended for prolonged use and that use can cause tolerance, dependence, depression, and associated memory issues including dementias (this list is not exhaustive). Benzodiazepine use is generally not recommended concurrently with pain medications and/or other controlled substances educated on all medications, benefits, side effects and risk, and educated on depression, anxiety, and ADHD, mood d/o and educated on compliance of medications, metabolic and movement d/o education appointment is, continue therapy discussion with patient about course of treatment and patient instructions. education on serotonin syndrome SSRI/SNRI side effects discussed including but not limited to, gastric upset, nausea, vomiting, diarrhea and/or constipation, weight changes, sexual side effects including loss of libido, increased suicidal thoughts/behaviors in children and young adults, and serotonin syndrome. Second generation antipsychotics (SGAs) have metabolic syndrome issues with weight gain, increase in prolactin, increased waist circumference, increased lipids, and increased glucose. Thus routine monitoring of weight, metabolic labs, etc. is indicated. A general rank ordering of antipsychotics that have the greatest to the least risk of metabolic effects is olanzapine, quetiapine, risperidone, ziprasidone, and aripiprazole. However, weight gain can occur with all of these drugs and considerable variability exists among patients receiving the same drug regarding the risk of metabolic effects. Anti-psychotic agents not only increase the risk of metabolic disorder, they also increase the risk of CVA, akathisia, and movement disorders including EPS or tardive dyskinesia (more common with first generation antipsychotics) and more. 01/30/2025 ADHD (attention deficit hyperactivity disorder), combined type (ICD-10 - F90.2) Attention Deficit Hyperactivity Disorder (ADHD) in Adults: Care Instructions material was published, Learning About Attention Deficit Hyperactivity Disorder (ADHD) in Adults material was published, Learning About Stimulant Medicines for Attention Deficit Hyperactivity Disorder (ADHD) material was published Attention Deficit Hyperactivity Disorder (ADHD) in Adults: Care Instructions material was published, Learning About Attention Deficit Hyperactivity Disorder (ADHD) in Adults material was published, Learning About Stimulant Medicines for Attention Deficit Hyperactivity Disorder (ADHD) material was published 1. Anxiety hx Patient reports anxiety level with intrusive thoughts and fear of night and sleep, and being alone discuss making list of thoughts, goals, plans and place in action discuss activity for day sleep hygiene education continue therapy discuss and educated on all rx Vistaril 10 mg three time a day for anxiety- HX Vistaril reported 25 mg dose more on edge - therapy continue- discuss DBT/CBT therapy discuss IOP program discuss journaling, coping skills, and identify triggers insurance requires 30 days at a time with refills 2. OCD A. fluvoxamine to 100mg. - anxiety and OCD- helping B. Monitor medication response. Encourage suicide hotline (108) use if needed.. advised when to seek emergency services. 3. Bipolar Disorder educated on therapy and CBT/DBT. EDMR- will work on situational stressors and fears in therapy Educated on proper use light box and not to stay in basement in day and come upstairs in day and open curtains, and outside help depression - lithium and Depakote for manic and depression - reported tolerating well and helping mood. Continue Depakote 500 mg BID lithium 150 mg twice a day hx r/t eduardo s/s at once a day and improved and monitor tremors in hands - labs 10/28 [place] 0.3 Depakote 33.6 Discuss Gene sight and Invega for Bipolar to control symptoms - Invega 3 mg daily continue discuss and educated on Invega injections for near future- Risk- Depakote can cause major congenital malformations incl. neural tube defects, decr. IQ scores, neurodevelopmental disorders after in utero exposure; contraindicated for migraine prophylaxis use in and women of reproductive potential w/o effective contraception; should not be used for epilepsy or bipolar disorder use in and women planning to become unless other tx options have failed or are unacceptable; women should use effective contraception during tx plan to taper off [place] r/t tremors - educated on labs for [place] and Depakote level.- [facility] . Follow up MIRELA and therapy scheduled- will make list of concerns for therapy and work on situational stressors, fears, and emotions in therapy labs completed 09/30 Gene sight reviewed and Abilify may need to be decrease in future - patient reported been working well Tubal 05/30/24- 3. Insomnia - Reports sleep apnea -no CPAP presently not using- plan on getting new CPAP- PCP ordered- still waiting on CPAP 11/13/24 - Plan: a.. sleep hygiene b. Continue melatonin 30 min before bed. c. melatonin 5-10 mg OTC d. Monitor sleep quality. discuss sleep hygeine habits 4. Suicidal Ideation- stable - Reports no passive suicidal thoughts - Denies plan/intent. a. Close monitoring. b. Encourage 688/081 hotline use if needed. c. Follow up MIRELA and seeing therapist e. advised to go to the emergency room if thoughts get worse or unmanageable. 5. OCD- thoughts and behaviors fluvoxamine to 100mg. 6.ADHD Comination hx since childhood and rx at childhood and adult LIDIA-AE 2 TEST Reviewed test results are congruent for ADHD combination hx Wellbutrin 300 mg dose - SI and eduardo discuss and educated on non-stimulates and stimualtes reviewed Gene sight - Vyvanse, Dextroamphetamine, and Adderall has no proven genetic markers Focalin and Concerta moderate gene- drug interaction and genotype may impact drug mechanism of action and result in moderate reduce efficacy discuss and educated Guanfacine 1 mg daily in am- reported wants to restart at 1 mg dose since 2 mg dose caused dry mouth- Qelbree- Moderate gene interaction- serum levls may be too low and lower doses may be needed Straterra- significant gene and drug interaction- serum levels too high and lower dose may be needed, CYP2D6 indicate increase side effects, but also greater symptom improvement with those find tx toleratable, potential gene interaction ADHD stimulates education Discuss with patient risk of misuse, abuse, and addiction before prescribing stimulant medicines. 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 Educate patients and their families on these serious risks, proper storage of the medicine, and proper disposal of any unused medicine. Educated patient will monitor Throughout treatment, regularly assess and monitor them for signs and symptoms of nonmedical use, addiction, and potential diversion, which may be evidenced by more frequent renewal. requests than warranted by the prescribed dosage. Random [facility] prescription reviewed local pharmacy in [place], no early refills on control substance educated on non-stimulate and stimulates - Plan: Send refill to [facility] need 30 days at a time r/t insurance Gene Sight discuss Follow up MIRELA and therapy scheduled- will make list of concerns for therapy and work on situational stressors, fears, and emotions in therapy educated on cannabis use as it can negatively impact mood, motivation, anxiety, sleep, focus/concentration /memory (vigilance, elasticity, processing and attention); can also contribute to development of psychosis. Cannabis/marijuana information: http_s://shaheed.nih.g ov/publications/janice gfacts/cannabis-mar lopezuana http_s://www.Weight Wins/cannabis- cuk-jopvmzqb-qrwvob avinash-adhd/ http_s://www.maribel.o /Atubx-Dygsuw-Mfh ness/Mental-Health- Conditions http_s://psych5 CUPS and some sugarr Isotera.com/depression/t zq-drzqjpdix-gwwnbk uo-cm-myllkvfneo#tr eatments http__s://www.nimh. nih.gov/health/topi cs/nixkmf-wilfft-yc dications http__s://www.maribel. org/Ffibg-Uddslw-Sb lness/Treatments/Me jmiz-Vvvjsy-Djoccas ions educated on all medications, benefits, side effects and risk, and educated on depression, anxiety, and ADHD, mood d/o and educated on compliance of medications, metabolic and movement d/o education appointment's, continue therapy discussion with patient about course of treatment and patient instructions. education on serotonin syndrome Discussed and educated pt regarding benzodiazepines are generally not intended for prolonged use and that use can cause tolerance, dependence, depression, and associated memory issues including dementias (this list is not exhaustive). Benzodiazepine use is generally not recommended concurrently with pain medications and/or other controlled substances educated on all medications, benefits, side effects and risk, and educated on depression, anxiety, and ADHD, mood d/o and educated on compliance of medications, metabolic and movement d/o education appointment is, continue therapy discussion with patient about course of treatment and patient instructions. education on serotonin syndrome SSRI/SNRI side effects discussed including but not limited to, gastric upset, nausea, vomiting, diarrhea and/or constipation, weight changes, sexual side effects including loss of libido, increased suicidal thoughts/behaviors in children and young adults, and serotonin syndrome. Second generation antipsychotics (SGAs) have metabolic syndrome issues with weight gain, increase in prolactin, increased waist circumference, increased lipids, and increased glucose. Thus routine monitoring of weight, metabolic labs, etc. is indicated. A general rank ordering of antipsychotics that have the greatest to the least risk of metabolic effects is olanzapine, quetiapine, risperidone, ziprasidone, and aripiprazole. However, weight gain can occur with all of these drugs and considerable variability exists among patients receiving the same drug regarding the risk of metabolic effects. Anti-psychotic agents not only increase the risk of metabolic disorder, they also increase the risk of CVA, akathisia, and movement disorders including EPS or tardive dyskinesia (more common with first generation antipsychotics) and more. 11/13/2024 Mixed obsessional thoughts and acts (ICD-10 - F42.2) Obsessive-Compulsiv e Disorder: Care Instructions material was published Obsessive-Compulsiv e Disorder: Care Instructions material was published, Obsessive-Compulsiv e Disorder: Care Instructions material was published Obsessive-Compulsiv e Disorder: Care Instructions material was published Obsessive-Compulsiv e Disorder: Care Instructions material was published, Obsessive-Compulsiv e Disorder: Care Instructions material was published 1. Anxiety -a. Patient reports anxiety level with intrusive thoughts and fear of night and sleep, and being alone discuss making list of thoughts, goals, plans and place in action discuss activity for day sleep hygiene education continue therapy . discuss and educated on all rx Decrease Vistaril 10 mg three time a day for anxiety- reported 25 mg dose more on edge - therapy continue- discuss DBT/CBT therapy discuss IOP program discuss journaling, coping skills, and identify triggers insurance requires 30 days at a time with refills 2. OCD A. fluvoxamine to 100mg. - anxiety and OCD- helping B. Monitor medication response. Encourage suicide hotline (610) use if needed.. advised when to seek emergency services. 3. Bipolar Disorder educated on therapy and CBT/DBT. ED- will work on situational stressors and fears in therapy Educated on proper use light box and not to stay in basement in day and come upstairs in day and open curtains, and outside help depression - lithium and Depakote for manic and depression - reported tolerating well and helping mood. Continue Depakote 500 mg BID lithium 150 mg twice a day hx r/t eduardo s/s at once a day and improved and monitor tremors in hands - labs 09/30 [place] 0.3 Depakote 33.6 Discuss Gene sight and Invega for Bipolar to control symptoms - Invega 3 mg daily continue discuss and educated on Invega injections for near future- Risk- Depakote can cause major congenital malformations incl. neural tube defects, decr. IQ scores, neurodevelopmental disorders after in utero exposure; contraindicated for migraine prophylaxis use in and women of reproductive potential w/o effective contraception; should not be used for epilepsy or bipolar disorder use in and women planning to become unless other tx options have failed or are unacceptable; women should use effective contraception during tx plan to taper off [place] r/t tremors - educated on labs for [place] and Depakote level.- [facility] . Follow up MIRELA and therapy scheduled- will make list of concerns for therapy and work on situational stressors, fears, and emotions in therapy labs completed 09/30 Gene sight reviewed and Abilify may need to be decrease in future - patient reported been working well Tubal 05/30/24- 3. Insomnia - Reports sleep apnea -no CPAP presently not using- plan on getting new CPAP- PCP ordered- still waiting on CPAP 11/13/24 - Plan: a.. sleep hygiene b. Continue melatonin 30 min before bed. c. melatonin 5-10 mg OTC d. Monitor sleep quality. discuss sleep hygeine habits 4. Suicidal Ideation- stable - Reports no passive suicidal thoughts - Denies plan/intent. a. Close monitoring. b. Encourage 566/840 hotline use if needed. c. Follow up MIRELA and seeing therapist e. advised to go to the emergency room if thoughts get worse or unmanageable. 5. OCD- thoughts and behaviors fluvoxamine to 100mg. 6.ADHD Comination hx since childhood and rx at childhood and adult LIDIA-AE 2 TEST Reviewed test results are congruent for ADHD combination hx Wellbutrin 300 mg dose - SI and eduardo discuss and educated on non-stimulates and stimualtes reviewed Gene sight - Vyvanse, Dextroamphetamine, and Adderall has no proven genetic markers Focalin and Concerta moderate gene- drug interaction and genotype may impact drug mechanism of action and result in moderate reduce efficacy discuss and educated Guanfacine 1 mg daily in am- reported not helping- Qelbree- Moderate gene interaction- serum levls may be too low and lower doses may be needed Straterra- significant gene and drug interaction- serum levels too high and lower dose may be needed, CYP2D6 indicate increase side effects, but also greater symptom improvement with those find tx toleratable, potential gene interaction ADHD stimulates education Discuss with patient risk of misuse, abuse, and addiction before prescribing stimulant medicines. 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 Educate patients and their families on these serious risks, proper storage of the medicine, and proper disposal of any unused medicine. Educated patient will monitor Throughout treatment, regularly assess and monitor them for signs and symptoms of nonmedical use, addiction, and potential diversion, which may be evidenced by more frequent renewal. requests than warranted by the prescribed dosage. Random [facility] [place] prescription reviewed local pharmacy in [facility], no early refills on control substance educated on non-stimulate and stimulates - Plan: Send refill to [facility] need 30 days at a time r/t insurance Gene Sight discuss Follow up MIRELA and therapy scheduled- will make list of concerns for therapy and work on situational stressors, fears, and emotions in therapy educated on cannabis use as it can negatively impact mood, motivation, anxiety, sleep, focus/concentration /memory (vigilance, elasticity, processing and attention); can also contribute to development of psychosis. Cannabis/marijuana information: http_s://shaheed.nih.g ov/publications/janice gfacts/cannabis-mar ijuana http_s://www.Weight Wins/cannabis- atq-wpuprpjt-vlptjn avinash-adhd/ http_s://www.maribel.o rg/Eqcux-Hajqft-Zwp ness/Mental-Health- Conditions http_s://psychcentr Isotera.com/depression/t il-lwbteiudh-fpkica ak-li-fgybpujclw#tr eatments http__s://www.nimh. nih.gov/health/topi cs/rbkztl-moybxm-ir dications http__s://www.maribel. org/Yvqwv-Xmxlev-Jx lness/Treatments/Me zqax-Kmtgqg-Cafrshk ions educated on all medications, benefits, side effects and risk, and educated on depression, anxiety, and ADHD, mood d/o and educated on compliance of medications, metabolic and movement d/o education appointment's, continue therapy discussion with patient about course of treatment and patient instructions. education on serotonin syndrome Discussed and educated pt regarding benzodiazepines are generally not intended for prolonged use and that use can cause tolerance, dependence, depression, and associated memory issues including dementias (this list is not exhaustive). Benzodiazepine use is generally not recommended concurrently with pain medications and/or other controlled substances educated on all medications, benefits, side effects and risk, and educated on depression, anxiety, and ADHD, mood d/o and educated on compliance of medications, metabolic and movement d/o education appointment is, continue therapy discussion with patient about course of treatment and patient instructions. education on serotonin syndrome SSRI/SNRI side effects discussed including but not limited to, gastric upset, nausea, vomiting, diarrhea and/or constipation, weight changes, sexual side effects including loss of libido, increased suicidal thoughts/behaviors in children and young adults, and serotonin syndrome. Second generation antipsychotics (SGAs) have metabolic syndrome issues with weight gain, increase in prolactin, increased waist circumference, increased lipids, and increased glucose. Thus routine monitoring of weight, metabolic labs, etc. is indicated. A general rank ordering of antipsychotics that have the greatest to the least risk of metabolic effects is olanzapine, quetiapine, risperidone, ziprasidone, and aripiprazole. However, weight gain can occur with all of these drugs and considerable variability exists among patients receiving the same drug regarding the risk of metabolic effects. Anti-psychotic agents not only increase the risk of metabolic disorder, they also increase the risk of CVA, akathisia, and movement disorders including EPS or tardive dyskinesia (more common with first generation antipsychotics) and more. 10/06/2024 Mixed obsessional thoughts and acts (ICD-10 - F42.2) Obsessive-Compulsiv e Disorder: Care Instructions material was published Obsessive-Compulsiv e Disorder: Care Instructions material was published, Obsessive-Compulsiv e Disorder: Care Instructions material was published Obsessive-Compulsiv e Disorder: Care Instructions material was published Obsessive-Compulsiv e Disorder: Care Instructions material was published, Obsessive-Compulsiv e Disorder: Care Instructions material was published 1. Anxiety -a. Patient reports anxiety level with intrusive thoughts.- therapy b. discuss and educated on all rx Increase Vistaril 25 mg three time a day for anxiety- reported 10 mg dose not helping - therapy continue- discuss DBT/CBT therapy discuss IOP program discuss journaling, coping skills, and identify triggers insurance requires 30 days at a time with refills 2. OCD A. fluvoxamine to 100mg. - anxiety and OCD- B. Monitor medication response. C. Encourage suicide hotline (988) use if needed. D. advised when to seek emergency services. 3. Bipolar Disorder educated on therapy and CBT/DBT. EDMR- will work on situational stressors and fears in therapy Educated on proper use light box and not to stay in basement in day and come upstairs in day and open curtains, and outside help depression - lithium and Depakote for manic and depression - reported tolerating well and helping mood. Continue Depakote 500 mg BID lithium 150 mg twice a day hx r/t eduardo s/s at once a day and improved and monitor tremors in hands - labs 09/30 [place] 0.3 Depakote 33.6 Discuss Gene sight and Invega for Bipolar to control symptoms - Invega 3 mg daily continue discuss and educated on Invega injections for near future- pateint agreed plan to taper off [place] r/t tremors - educated on labs for [place] and Depakote level.- [facility] . Follow up MIRELA and therapy scheduled- will make list of concerns for therapy and work on situational stressors, fears, and emotions in therapy labs completed 09/30 Gene sight reviewed and Abilify may need to be decrease in future - patient reported been working well Tubal 05/30/24- 3. Insomnia - Reports sleep apnea -no CPAP presently not using- plan on getting new CPAP- PCP ordered - Plan: a.. sleep hygiene b. Continue melatonin 30min before bed. c. melatonin 3 mg OTC d. Monitor sleep quality. 4. Suicidal Ideation- stable - Reports no passive suicidal thoughts - Denies plan/intent. a. Close monitoring. b. Encourage 988/911 hotline use if needed. c. Follow up MIRELA and seeing therapist e. advised to go to the emergency room if thoughts get worse or unmanageable. 5. OCD- thoughts and behaviors fluvoxamine to 100mg. 6.ADHD Comination hx since childhood and rx at childhood and adult LIDIA-AE 2 TEST Reviewed test results are congruent for ADHD combination discuss and educated on non-stimulates and stimualtes reviewed Gene sight - Vyvanse, Dextroamphetamine, and Adderall has no proven genetic markers Focalin and Concerta moderate gene- drug interaction and genotype may impact drug mechanism of action and result in moderate reduce efficacy discuss and educated ] Guanfacine 1 mg daily in am Qelbree- Moderate gene interaction- serum levls may be too low and lower doses may be needed Straterra- significant gene and drug interaction- serum levels too high and lower dose may be needed, CYP2D6 indicate increase side effects, but also greater symptom improvement with those find tx toleratable, potential gene interaction ADHD stimulates education Discuss with patient risk of misuse, abuse, and addiction before prescribing stimulant medicines. 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 Educate patients and their families on these serious risks, proper storage of the medicine, and proper disposal of any unused medicine. Educated patient will monitor Throughout treatment, regularly assess and monitor them for signs and symptoms of nonmedical use, addiction, and potential diversion, which may be evidenced by more frequent renewal. requests than warranted by the prescribed dosage. Random [facility] prescription reviewed local pharmacy in [facility], no early refills on control substance educated on non-stimulate and stimulates - Plan: Send refill to [facility] need 30 days at a time r/t insurance Gene Sight discuss Follow up MIRELA and therapy scheduled- will make list of concerns for therapy and work on situational stressors, fears, and emotions in therapy educated on cannabis use as it can negatively impact mood, motivation, anxiety, sleep, focus/concentration /memory (vigilance, elasticity, processing and attention); can also contribute to development of psychosis. Cannabis/marijuana information: http_s://shaheed.nih.g ov/publications/janice gfacts/cannabis-mar ijuana http_s://www.[employer].Safecare/cannabis- nax-kqrciibh-ggkxdf avinash-adhd/ http_s://www.maribel.o rg/Clizw-Jshrrt-Ebo ness/Mental-Health- Conditions http_s://psychcentr Isotera.com/depression/t qv-zqlaviqdt-hagaym dd-wi-cncysmzjsq#tr eatments http__s://www.nimh. nih.gov/health/topi cs/evlgai-axxtjj-xz dications http__s://www.maribel. org/Hgjth-Fpuitd-Qn lness/Treatments/Me nfbu-Zvawln-Sqgzboy ions educated on all medications, benefits, side effects and risk, and educated on depression, anxiety, and ADHD, mood d/o and educated on compliance of medications, metabolic and movement d/o education appointment's, continue therapy discussion with patient about course of treatment and patient instructions. education on serotonin syndrome Discussed and educated pt regarding benzodiazepines are generally not intended for prolonged use and that use can cause tolerance, dependence, depression, and associated memory issues including dementias (this list is not exhaustive). Benzodiazepine use is generally not recommended concurrently with pain medications and/or other controlled substances educated on all medications, benefits, side effects and risk, and educated on depression, anxiety, and ADHD, mood d/o and educated on compliance of medications, metabolic and movement d/o education appointment is, continue therapy discussion with patient about course of treatment and patient instructions. education on serotonin syndrome SSRI/SNRI side effects discussed including but not limited to, gastric upset, nausea, vomiting, diarrhea and/or constipation, weight changes, sexual side effects including loss of libido, increased suicidal thoughts/behaviors in children and young adults, and serotonin syndrome. Second generation antipsychotics (SGAs) have metabolic syndrome issues with weight gain, increase in prolactin, increased waist circumference, increased lipids, and increased glucose. Thus routine monitoring of weight, metabolic labs, etc. is indicated. A general rank ordering of antipsychotics that have the greatest to the least risk of metabolic effects is olanzapine, quetiapine, risperidone, ziprasidone, and aripiprazole. However, weight gain can occur with all of these drugs and considerable variability exists among patients receiving the same drug regarding the risk of metabolic effects. Anti-psychotic agents not only increase the risk of metabolic disorder, they also increase the risk of CVA, akathisia, and movement disorders including EPS or tardive dyskinesia (more common with first generation antipsychotics) and more. 04/10/2024 Mixed obsessional thoughts and acts (ICD-10 - F42.2) Obsessive-Compulsiv e Disorder: Care Instructions material was published, Obsessive-Compulsiv e Disorder: Care Instructions material was published 1. Bipolar Disorder - Manic Episode: discuss Depakote for eduardo and educated on rx will add Depakote ER 250 MG TWICE a day for Bipolar eduardo - educated on labs with Depakote and BCP presently on planning on tubal plan to titrate off [place] next visit Risk- Depakote can cause major congenital malformations incl. neural tube defects, decr. IQ scores, neurodevelopmental disorders after in utero exposure; contraindicated for migraine prophylaxis use in and women of reproductive potential w/o effective contraception; should not be used for epilepsy or bipolar disorder use in and women planning to become unless other tx options have failed or are unacceptable; women should use effective contraception during tx - [place] dose was reduced to 300 mg twice daily due to worsening tremor; however, this has led to a manic episode continue over last 6 weeks aripiprazole 20 mg at bedtime recently increased -monitor lithium level - Encourage the patient to avoid excessive caffeine intake, such as energy drinks, as this may exacerbate eduardo. - Reevaluate the need for medication adjustments if manic symptoms persist or worsen. 3. Depression: - Continue fluvoxamine 100 mg at bedtime 4. Anxiety: - aripiprazole 20 mg at bedtime as prescribed for anxiety management. 5. Insomnia: - Continue estazolam, melatonin, and trazodone 50 mg as prescribed for sleep management. - Monitor sleep patterns and adjust medications if needed. hx heart issues rx hx Vraylar, Abilify, Caplyta (muscle weakness), [place] (tremors) Fluvoxamine, Clomipramine, estazolam, melatonin, and trazodone 50 mg 6. Impulsive Spending: - Encourage the patient to develop strategies for managing impulsive spending, such as seeking support from a therapist or financial counselor. - Monitor the impact of lithium on impulsive behavior and adjust the dose if necessary. labs reviewd 01/27 scanned into chart Follow-up: 04/01/2024 Mixed obsessional thoughts and acts (ICD-10 - F42.2) Obsessive-Compulsiv e Disorder: Care Instructions material was published, Obsessive-Compulsiv e Disorder: Care Instructions material was published 1. Bipolar Disorder - Manic Episode: - [place] dose was reduced to 300 mg twice daily due to worsening tremor; however, this has led to a manic episode continue over last month increase aripiprazole 20 mg at bedtime -monitor lithium level - Encourage the patient to avoid excessive caffeine intake, such as energy drinks, as this may exacerbate eduardo. - Reevaluate the need for medication adjustments if manic symptoms persist or worsen. 3. Depression: - Continue fluvoxamine 100 mg at bedtime and d/c clomipramine 25 mg as prescribed. 4. Anxiety: - increase aripiprazole 20 mg at bedtime as prescribed for anxiety management. 5. Insomnia: - Continue estazolam, melatonin, and trazodone 50 mg as prescribed for sleep management. - Monitor sleep patterns and adjust medications if needed. hx heart issues rx hx Vraylar, Abilify, Caplyta (muscle weakness), [place] (tremors) Fluvoxamine, Clomipramine, estazolam, melatonin, and trazodone 50 mg 6. Impulsive Spending: - Encourage the patient to develop strategies for managing impulsive spending, such as seeking support from a therapist or financial counselor. - Monitor the impact of lithium on impulsive behavior and adjust the dose if necessary. Follow-up: 03/13/2024 Mixed obsessional thoughts and acts (ICD-10 - F42.2) Obsessive-Compulsiv e Disorder: Care Instructions material was published, Obsessive-Compulsiv e Disorder: Care Instructions material was published mixed Bipolar- patient had a good response to Abilify 20 mg 2013 Increase Abilify 15 mg daily for Bipolar eduardo - educated on rx Decrease [place] 300 mg twice a day- seen neuropsychiatry- r/o hand tremors to [place] Continue therapy denies SI/HI no plans or intent educated on 988 and 911 go to nearest ER if have passive/active SI or plan or intent hx [place] toxicity at higher doses [place] education [place] use reviewed. Risks include risks of toxicity, arrhythmias, cognitive impairment, changes in muscle coordination, weight gain, thyroid and parathyroid changes, polydipsia and polyuria, alopecia, tremor and teratogenicity ( defects). Recommend avoid in females (use contraception consistently). Routine lab monitoring may be required. Patient consented to treatment. Indications: acute eduardo (euphoric eduardo), bipolar prophylaxis, bipolar depression treatment or augmentation, unipolar depression as augmentation with antidepressants Average dose = I,500 mg/day, target serum level 0.8 [place] is known to reduce risk of suicide. 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,000 Renal: chronic renal insufficiency (after 10-20 years), acute renal failure, polyuria occurs in 50-70% [lithium antagonizes anti-diuretic hormone (ADH)], diabetes insipidus in 10% (treat with amiloride) Drug-drug interactions: increase in lithium: NSAIDs, GRZGEORZ inhibitors, angiotensin II antagonists Anxiety- monitor in therapy primary Insomnia - Trazodone 50 mg at bedtime OCD- Patient had cardiac hx and 3 surgeries decrease Clomipramine 25 mg for a month plan to stop in a month discuss and educated on increase Fluxoxamine 100 mg daily for OCD- tolerating well no s/e Monitor for SI http_s://www.[facility].n ih.gov/health/topic s/gqtmcd-hpwggi-tdv ications http_s://www.maribel.o rg/Ycmjh-Xxxalo-Uwk ness/Treatments/Men ifq-Mfdzar-Tfkpzprv ons discuss and educated pharmacogenomic panel- patient will have test next visit Patient educated on all medications including potential benefits, side effects, risks. Educated on proper dosing schedule and importance of compliance educated on all medications, benefits, side effects and risk, and educated on depression, anxiety, and ADHD, mood d/o and educated on compliance of medications, metabolic and movement d/o education appointment is, continue therapy discussion with patient about course of treatment and patient instructions. education on serotonin syndrome SSRI/SNRI side effects discussed including but not limited to, gastric upset, nausea, vomiting, diarrhea and/or constipation, weight changes, sexual side effects including loss of libido, increased suicidal thoughts/behaviors in children and young adults, and serotonin syndrome. Second generation antipsychotics (SGAs) have metabolic syndrome issues with weight gain, increase in prolactin, increased waist circumference, increased lipids, and increased glucose. Thus routine monitoring of weight, metabolic labs, etc. is indicated. A general rank ordering of antipsychotics that have the greatest to the least risk of metabolic effects is olanzapine, quetiapine, risperidone, ziprasidone, and aripiprazole. However, weight gain can occur with all of these drugs and considerable variability exists among patients receiving the same drug regarding the risk of metabolic effects. Anti-psychotic agents not only increase the risk of metabolic disorder, they also increase the risk of CVA, akathisia, and movement disorders including EPS or tardive dyskinesia (more common with first generation antipsychotics) and more. Medication Management and Follow-Up - Plan: - Schedule follow-up appointments every 1-3 months to monitor the patient's response to the medication regimen. - Reinforce the importance of avoiding recreational drug use due to potential neurotoxicity and interactions with prescribed medications. 02/29/2024 Mixed obsessional thoughts and acts (ICD-10 - F42.2) Obsessive-Compulsiv e Disorder: Care Instructions material was published mixed Bipolar- patient had a god response to Abilify 20 mg 2013 Will add Abilify 10 mg daily for Bipolar - educated on rx [place] 450 mg twice a day Continue therapy denies SI/HI no plans or intent educated on 988 and 911 go to nearest ER if have passive/active SI or plan or intent hx [place] toxicity at higher doses [place] education [place] use reviewed. Risks include risks of toxicity, arrhythmias, cognitive impairment, changes in muscle coordination, weight gain, thyroid and parathyroid changes, polydipsia and polyuria, alopecia, tremor and teratogenicity ( defects). Recommend avoid in females (use contraception consistently). Routine lab monitoring may be required. Patient consented to treatment. Indications: acute eduardo (euphoric eduardo), bipolar prophylaxis, bipolar depression treatment or augmentation, unipolar depression as augmentation with antidepressants Average dose = I,500 mg/day, target serum level 0.8 [place] is known to reduce risk of suicide. 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,000 Renal: chronic renal insufficiency (after 10-20 years), acute renal failure, polyuria occurs in 50-70% [lithium antagonizes anti-diuretic hormone (ADH)], diabetes insipidus in 10% (treat with amiloride) Drug-drug interactions: increase in lithium: NSAIDs, GRZEGORZ inhibitors, angiotensin II antagonists patient stopped Caplyta (muscle weaknes after 3 days and seenn in [place] [facility]) Anxiety- monitor in therapy primary Insomnia - Trazodone 50 mg at bedtime OCD- Patient had cardiac hx and 3 surgeries currently on Clomipramine 75 MG daily and will slowly decrease to stopping rx will decrease to Clomipramine 50 mg daily for next month then to 25 mg for a month on next visit discuss and educated on Fluxoxamine 50 mg daily for OCD Monitor for SI http_s://www.[facility].n ih.gov/health/topic s/uvnscn-whibkd-agc ications http_s://www.maribel.o rg/Svdef-Fapefg-Kcs ness/Treatments/Men fpe-Plsiwf-Mvciyxlz ons discuss and educated pharmacogenomic panel- patient will have test next visit Patient educated on all medications including potential benefits, side effects, risks. Educated on proper dosing schedule and importance of compliance educated on all medications, benefits, side effects and risk, and educated on depression, anxiety, and ADHD, mood d/o and educated on compliance of medications, metabolic and movement d/o education appointment is, continue therapy discussion with patient about course of treatment and patient instructions. education on serotonin syndrome SSRI/SNRI side effects discussed including but not limited to, gastric upset, nausea, vomiting, diarrhea and/or constipation, weight changes, sexual side effects including loss of libido, increased suicidal thoughts/behaviors in children and young adults, and serotonin syndrome. Second generation antipsychotics (SGAs) have metabolic syndrome issues with weight gain, increase in prolactin, increased waist circumference, increased lipids, and increased glucose. Thus routine monitoring of weight, metabolic labs, etc. is indicated. A general rank ordering of antipsychotics that have the greatest to the least risk of metabolic effects is olanzapine, quetiapine, risperidone, ziprasidone, and aripiprazole. However, weight gain can occur with all of these drugs and considerable variability exists among patients receiving the same drug regarding the risk of metabolic effects. Anti-psychotic agents not only increase the risk of metabolic disorder, they also increase the risk of CVA, akathisia, and movement disorders including EPS or tardive dyskinesia (more common with first generation antipsychotics) and more. Medication Management and Follow-Up - Plan: - Schedule follow-up appointments every 1-3 months to monitor the patient's response to the medication regimen. - Reinforce the importance of avoiding recreational drug use due to potential neurotoxicity and interactions with prescribed medications. 09/17/2024 Mixed obsessional thoughts and acts (ICD-10 - F42.2) Obsessive-Compulsiv e Disorder: Care Instructions material was published Obsessive-Compulsiv e Disorder: Care Instructions material was published, Obsessive-Compulsiv e Disorder: Care Instructions material was published 08/25/2024 Bipolar disorder with depression (ICD-10 - F31.9) Bipolar Disorder: Care Instructions material was published, Learning About Mood Disorders material was published, Learning About How to Get Help During a Mental Health Crisis material was published, Learning About Movement Disorders From Antipsychotic Medicines material was published 1. Anxiety -a. Patient reports improved anxiety level with intrusive thoughts.- therapy b. discuss and educated on Vistaril 10 mg at bedtime for anxiety and may take 1/2 dose (5 mg) in day if make tired - therapy continue - Plan: continue insurance requires 30 days at a time with refills OCD A. fluvoxamine to 100mg. - anxiety and OCD- improved B. Monitor medication response. C. Encourage suicide hotline (474) use if needed. D. advised when to seek emergency services. 2. Bipolar Disorder educated on therapy and CBT/DBT. EDMR- will work on situational stressors and fears in therapy Educated on proper use light box and not to stay in basement in day and come upstairs in day and open curtains, and outside help depression - lithium and Depakote for manic and depression - reported tolerating well and helping mood. Continue Depakote 500 mg BID Patient increased lithium 150 mg twice a day r/t eduardo s/s at once a day and improved and monitor tremors in hands - Discuss Gene sight and switch from Abilify to Invega for Bipolar to control symptoms - will decrease Abilify to 20 mg daily and add Invega 3 mg daily patient will be on 2 anti-psychotics at tthis time while tapering off Abilify to control s/s discuss and educated on Invega injections for near future plan to taper off [place] r/t tremors - educated on labs for [place] and Depakote level. . Follow up [facility] and therapy scheduled- will make list of concerns for therapy and work on situational stressors, fears, and emotions in therapy labs completed 05/28/24 Valporic acid 36, [place] 0.4, WBC, CMP, CARDIAC enzymes scanned into chart LABS SCHEDULED today PCP will add [place] and Depakote Gene sight reviewed and Abilify may need to be decrease in future - patient reported been working well Tubal 05/30/24- 3. Insomnia - Reports sleep apnea -no CPAP presently not using- plan on getting new CPAP - Plan: a.. sleep hygiene b. Continue melatonin 30min before bed. c. melatonin 3 mg OTC d. Monitor sleep quality. 4. Suicidal Ideation- stable - Reports no passive suicidal thoughts - Denies plan/intent. a. Close monitoring. b. Encourage 988/911 hotline use if needed. c. Follow up [facility] and seeing therapist e. advised to go to the emergency room if thoughts get worse or unmanageable. 5. OCD- thoughts and behaviors fluvoxamine to 100mg. 6.ADHD Comination hx since childhood and rx at childhood and adult LIDIA-AE 2 TEST Reviewed test results are congruent for ADHD combination discuss and educated on non-stimulates and stimualtes reviewed Gene sight - Vyvanse, Dextroamphetamine, and Adderall has no proven genetic markers Focalin and Concerta moderate gene- drug interaction and genotype may impact drug mechanism of action and result in moderate reduce efficacy Plan: Guanfacine use as directed discuss and educated and will add Guanfacine 1 mg daily in am Qelbree- Moderate gene interaction- serum levls may be too low and lower doses may be needed Straterra- significant gene and drug interaction- serum levels too high and lower dose may be needed, CYP2D6 indicate increase side effects, but also greater symptom improvement with those find tx toleratable, potential gene interaction ADHD stimulates education Discuss with patient risk of misuse, abuse, and addiction before prescribing stimulant medicines. 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 Educate patients and their families on these serious risks, proper storage of the medicine, and proper disposal of any unused medicine. Educated patient will monitor Throughout treatment, regularly assess and monitor them for signs and symptoms of nonmedical use, addiction, and potential diversion, which may be evidenced by more frequent renewal. requests than warranted by the prescribed dosage. Random [facility] [place] prescription reviewed local pharmacy in [place], no early refills on control substance educated on non-stimulate and stimulates - Plan: Send refill to [facility] need 30 days at a time r/t insurance Gene Sight discuss Follow up [facility] and therapy scheduled- will make list of concerns for therapy and work on situational stressors, fears, and emotions in therapy educated on cannabis use as it can negatively impact mood, motivation, anxiety, sleep, focus/concentration /memory (vigilance, elasticity, processing and attention); can also contribute to development of psychosis. Cannabis/marijuana information: http_s://shaheed.nih.g ov/publications/janice gfacts/cannabis-cara cheng http_s://www.Weight Wins/cannabis- vrh-ssgpsafq-dplyip avinash-adhd/ http_s://www.maribel.o /Ivnsu-Arnkzy-Ugv ness/Mental-Health- Conditions http_s://psychcentr Isotera.com/depression/t yh-tnagwjxno-ictdin nt-xi-qnlbbmjikr#tr eatments http__s://www.nimh. nih.gov/health/topi cs/arxvgs-eumuwd-al dications http__s://www.maribel. org/Zbfef-Fzxlzp-Xc lness/Treatments/Me yqfn-Qjflnq-Putuzuo ions educated on all medications, benefits, side effects and risk, and educated on depression, anxiety, and ADHD, mood d/o and educated on compliance of medications, metabolic and movement d/o education appointment's, continue therapy discussion with patient about course of treatment and patient instructions. education on serotonin syndrome Discussed and educated pt regarding benzodiazepines are generally not intended for prolonged use and that use can cause tolerance, dependence, depression, and associated memory issues including dementias (this list is not exhaustive). Benzodiazepine use is generally not recommended concurrently with pain medications and/or other controlled substances educated on all medications, benefits, side effects and risk, and educated on depression, anxiety, and ADHD, mood d/o and educated on compliance of medications, metabolic and movement d/o education appointment is, continue therapy discussion with patient about course of treatment and patient instructions. education on serotonin syndrome SSRI/SNRI side effects discussed including but not limited to, gastric upset, nausea, vomiting, diarrhea and/or constipation, weight changes, sexual side effects including loss of libido, increased suicidal thoughts/behaviors in children and young adults, and serotonin syndrome. Second generation antipsychotics (SGAs) have metabolic syndrome issues with weight gain, increase in prolactin, increased waist circumference, increased lipids, and increased glucose. Thus routine monitoring of weight, metabolic labs, etc. is indicated. A general rank ordering of antipsychotics that have the greatest to the least risk of metabolic effects is olanzapine, quetiapine, risperidone, ziprasidone, and aripiprazole. However, weight gain can occur with all of these drugs and considerable variability exists among patients receiving the same drug regarding the risk of metabolic effects. Anti-psychotic agents not only increase the risk of metabolic disorder, they also increase the risk of CVA, akathisia, and movement disorders including EPS or tardive dyskinesia (more common with first generation antipsychotics) and more. 09/15/2024 Bipolar disorder with depression (ICD-10 - F31.9) Bipolar Disorder: Care Instructions material was published, Learning About Mood Disorders material was published, Learning About How to Get Help During a Mental Health Crisis material was published, Learning About Movement Disorders From Antipsychotic Medicines material was published 1. Anxiety -a. Patient reports improved anxiety level with intrusive thoughts.- therapy b. discuss and educated on all rx Increase Vistaril 10 mg up to three times a day for anxiety - therapy continue - Plan: continue insurance requires 30 days at a time with refills OCD A. fluvoxamine to 100mg. - anxiety and OCD- improved B. Monitor medication response. C. Encourage suicide hotline (401) use if needed. D. advised when to seek emergency services. 2. Bipolar Disorder educated on therapy and CBT/DBT. EDMR- will work on situational stressors and fears in therapy Educated on proper use light box and not to stay in basement in day and come upstairs in day and open curtains, and outside help depression - lithium and Depakote for manic and depression - reported tolerating well and helping mood. Continue Depakote 500 mg BID lithium 150 mg twice a day hx r/t eduardo s/s at once a day and improved and monitor tremors in hands - Discuss Gene sight and Invega for Bipolar to control symptoms - Invega 3 mg daily contiue discuss and educated on Invega injections for near future- pateint agreed plan to taper off [place] r/t tremors - educated on labs for [place] and Depakote level.- patient reported will have done Sunday . Follow up [facility] and therapy scheduled- will make list of concerns for therapy and work on situational stressors, fears, and emotions in therapy labs completed 05/28/24 Valporic acid 36, [place] 0.4, WBC, CMP, CARDIAC enzymes scanned into chart Gene sight reviewed and Abilify may need to be decrease in future - patient reported been working well Tubal 05/30/24- 3. Insomnia - Reports sleep apnea -no CPAP presently not using- plan on getting new CPAP PCP ordered - Plan: a.. sleep hygiene b. Continue melatonin 30min before bed. c. melatonin 3 mg OTC d. Monitor sleep quality. 4. Suicidal Ideation- stable - Reports no passive suicidal thoughts - Denies plan/intent. a. Close monitoring. b. Encourage 118/841 hotline use if needed. c. Follow up [facility] and seeing therapist e. advised to go to the emergency room if thoughts get worse or unmanageable. 5. OCD- thoughts and behaviors fluvoxamine to 100mg. 6.ADHD Comination hx since childhood and rx at childhood and adult LIDIA-AE 2 TEST Reviewed test results are congruent for ADHD combination discuss and educated on non-stimulates and stimualtes reviewed Gene sight - Vyvanse, Dextroamphetamine, and Adderall has no proven genetic markers Focalin and Concerta moderate gene- drug interaction and genotype may impact drug mechanism of action and result in moderate reduce efficacy Plan: Guanfacine use as directed discuss and educated and will add Guanfacine 1 mg daily in am [place]- Moderate gene interaction- serum levls may be too low and lower doses may be needed Straterra- significant gene and drug interaction- serum levels too high and lower dose may be needed, CYP2D6 indicate increase side effects, but also greater symptom improvement with those find tx toleratable, potential gene interaction ADHD stimulates education Discuss with patient risk of misuse, abuse, and addiction before prescribing stimulant medicines. 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 Educate patients and their families on these serious risks, proper storage of the medicine, and proper disposal of any unused medicine. Educated patient will monitor Throughout treatment, regularly assess and monitor them for signs and symptoms of nonmedical use, addiction, and potential diversion, which may be evidenced by more frequent renewal. requests than warranted by the prescribed dosage. Random [facility] prescription reviewed local pharmacy in [place], no early refills on control substance educated on non-stimulate and stimulates - Plan: Send refill to [facility] need 30 days at a time r/t insurance Gene Sight discuss Follow up MIRELA and therapy scheduled- will make list of concerns for therapy and work on situational stressors, fears, and emotions in therapy educated on cannabis use as it can negatively impact mood, motivation, anxiety, sleep, focus/concentration /memory (vigilance, elasticity, processing and attention); can also contribute to development of psychosis. Cannabis/marijuana information: http_s://shaheed.nih.g ov/publications/janice gfacts/cannabis-mar lopezuana http_s://www.Weight Wins/cannabis- ykg-tqmsskfd-zjgpiu avinash-adhd/ http_s://www.maribel.o /Fkjip-Vgxuor-Rot ness/Mental-Health- Conditions http_s://psychcentr Isotera.com/depression/t mx-tvjywdopz-rbyslc eg-ho-iaofuccrbj#tr eatments http__s://www.nimh. nih.gov/health/topi cs/yfituo-hgmefw-vb dications http__s://www.maribel. org/Nqicb-Lmnujr-Ej lness/Treatments/Me yphm-Gdchrj-Vnfgxid ions educated on all medications, benefits, side effects and risk, and educated on depression, anxiety, and ADHD, mood d/o and educated on compliance of medications, metabolic and movement d/o education appointment's, continue therapy discussion with patient about course of treatment and patient instructions. education on serotonin syndrome Discussed and educated pt regarding benzodiazepines are generally not intended for prolonged use and that use can cause tolerance, dependence, depression, and associated memory issues including dementias (this list is not exhaustive). Benzodiazepine use is generally not recommended concurrently with pain medications and/or other controlled substances educated on all medications, benefits, side effects and risk, and educated on depression, anxiety, and ADHD, mood d/o and educated on compliance of medications, metabolic and movement d/o education appointment is, continue therapy discussion with patient about course of treatment and patient instructions. education on serotonin syndrome SSRI/SNRI side effects discussed including but not limited to, gastric upset, nausea, vomiting, diarrhea and/or constipation, weight changes, sexual side effects including loss of libido, increased suicidal thoughts/behaviors in children and young adults, and serotonin syndrome. Second generation antipsychotics (SGAs) have metabolic syndrome issues with weight gain, increase in prolactin, increased waist circumference, increased lipids, and increased glucose. Thus routine monitoring of weight, metabolic labs, etc. is indicated. A general rank ordering of antipsychotics that have the greatest to the least risk of metabolic effects is olanzapine, quetiapine, risperidone, ziprasidone, and aripiprazole. However, weight gain can occur with all of these drugs and considerable variability exists among patients receiving the same drug regarding the risk of metabolic effects. Anti-psychotic agents not only increase the risk of metabolic disorder, they also increase the risk of CVA, akathisia, and movement disorders including EPS or tardive dyskinesia (more common with first generation antipsychotics) and more. 07/17/2024 Bipolar disorder with depression (ICD-10 - F31.9) 1. Anxiety -a. Patient reports improved anxiety level with intrusive thoughts.- therapy b. discuss and educated on Vistaril 10 mg at bedtime for anxiety and may take 1/2 dose (5 mg) in day if make tired - therapy continue - Plan: continue rx no refills needed today insurance requires 30 days at a time with refills OCD A. fluvoxamine to 100mg. - anxiety and OCD- improved B. Monitor medication response. C. Encourage suicide hotline (949) use if needed. D. advised when to seek emergency services. 2. Bipolar Disorder educated on therapy and CBT/DBT. EDMR- will work on situational stressors and fears in therapy Educated on proper use light box and not to stay in basement in day and come upstairs in day and open curtains, and outside help depression - lithium and Depakote for manic and depression - reported tolerating well and helping mood. - No changes - Plan: Continue Depakote 500 mg BID will decrease lithium 150 mg in am and monitor tremors in hands - plan to taper off [place] - educated on labs for [place] and Depakote level. . Follow up [facility] and therapy scheduled- will make list of concerns for therapy and work on situational stressors, fears, and emotions in therapy Abilify 30 mg at bedtime- prescribed 05/05/24 from [facility]- discuss may plan to decrease dose in furture - patient has had recent eduardo/hypomania and depression recently labs completed 05/28/24 Valporic acid 36, [place] 0.4, WBC, CMP, CARDIAC enzymes scanned into chart Gene sight reviewed and Abilify may need to be decrease in future - patient reported been working well Tubal 05/30/24- recovery well 3. Insomnia - Reports sleep apnea no CPAP presently using - Plan: a.. sleep hygiene b. Continue melatonin 30min before bed. c. melatonin 3 mg OTC d. Monitor sleep quality. Trazodone 50 mg PRN- reported not taking 4. Suicidal Ideation- stable - Reports no passive suicidal thoughts - Denies plan/intent. a. Close monitoring. b. Encourage 988/911 hotline use if needed. c. Follow up [facility]RELA and seeing therapist e. advised to go to the emergency room if thoughts get worse or unmanageable. 5. OCD- thoughts and behaviors A. fluvoxamine to 100mg. 6. appetite - Reports varies a. Monitor appetite/weight. b. Discuss healthy eating habits. c. heart healthy diet and excise 7. Headache - Reports headaches same - Plan: see PCP patient will schedule appt and discuss HTN- new patient appt schedules and seen licensed nursing assistant with HTN and adjusting rx a. Monitor frequency/severity. b. Consider medication side effects. c. Recommend OTC relief as needed. d. sleep hygiene education no NSAIDS ADHD Comination hx since childhood and rx at childhood and adult LIDIA-2 TEST SCHEDULED - Plan: Send refill to [facility]- need 30 days at a time r/t insurance Gene Sight discuss Follow up MIRELA and therapy scheduled- will make list of concerns for therapy and work on situational stressors, fears, and emotions in therapy Recommend decrease/stop cannabis use as it can negatively impact mood, motivation, anxiety, sleep, focus/concentration /memory (vigilance, elasticity, processing and attention); can also contribute to development of psychosis. Cannabis/marijuana information: http_s://shaheed.nih.g ov/publications/janice gfacts/cannabis-mar ijuana http_s://www.Social Rewards.Safecare/cannabis- ldg-yxvzyrze-brtaka avinash-adhd/ http_s://www.maribel.o rg/Arplk-Cdepsz-Rpp ness/Mental-Health- Conditions http_s://psychcentr al.com/depression/t xt-desajnxdo-ffbkiz yv-yj-aalgmkoznz#tr eatments http__s://www.nimh. nih.gov/health/topi cs/ikcokq-dycokg-dq dications http__s://www.maribel. org/Ejpso-Sqlqtl-Kn lness/Treatments/Me zaiw-Menkfe-Nxwkqtl ions educated on all medications, benefits, side effects and risk, and educated on depression, anxiety, and ADHD, mood d/o and educated on compliance of medications, metabolic and movement d/o education appointment's, continue therapy discussion with patient about course of treatment and patient instructions. education on serotonin syndrome Discussed and educated pt regarding benzodiazepines are generally not intended for prolonged use and that use can cause tolerance, dependence, depression, and associated memory issues including dementias (this list is not exhaustive). Benzodiazepine use is generally not recommended concurrently with pain medications and/or other controlled substances educated on all medications, benefits, side effects and risk, and educated on depression, anxiety, and ADHD, mood d/o and educated on compliance of medications, metabolic and movement d/o education appointment is, continue therapy discussion with patient about course of treatment and patient instructions. education on serotonin syndrome SSRI/SNRI side effects discussed including but not limited to, gastric upset, nausea, vomiting, diarrhea and/or constipation, weight changes, sexual side effects including loss of libido, increased suicidal thoughts/behaviors in children and young adults, and serotonin syndrome. Second generation antipsychotics (SGAs) have metabolic syndrome issues with weight gain, increase in prolactin, increased waist circumference, increased lipids, and increased glucose. Thus routine monitoring of weight, metabolic labs, etc. is indicated. A general rank ordering of antipsychotics that have the greatest to the least risk of metabolic effects is olanzapine, quetiapine, risperidone, ziprasidone, and aripiprazole. However, weight gain can occur with all of these drugs and considerable variability exists among patients receiving the same drug regarding the risk of metabolic effects. Anti-psychotic agents not only increase the risk of metabolic disorder, they also increase the risk of CVA, akathisia, and movement disorders including EPS or tardive dyskinesia (more common with first generation antipsychotics) and more. 05/06/2024 Mixed obsessional thoughts and acts (ICD-10 - F42.2) Obsessive-Compulsiv e Disorder: Care Instructions material was published 1. Anxiety -a. Patient reports anxiety level with intrusive thoughts.- therapy b. discuss and educated on Vistaril 10 mg three tmes a day PRN for anxiety and may take 1/2 dose (5 mg) in day if make tired - therapy continue - Plan: a. b. fluvoxamine to 50mg. - anxiety and OCD c. Monitor medication response. d. Encourage suicide hotline (988) use if needed. e. advised when to seek emergency services. 2. Bipolar Disorder - Transitioning from lithium to Depakote for manic depression. - No changes noticed with adjustment. - Plan: a. Continue Depakote 500mg BID and lithium 150mg BID until therapeutic Depakote level. b. Follow up on to assess progress. C. Abilify 30 mg at bedtime- patient reported has not picked up yet - prescribed 05/05/24 from [facility] walk in clinic 3. Insomnia - Reports 9-10 hours in bed and 8 hours sleep with awakenings. - Plan: a.. sleep hygiene b. Continue melatonin 30min before bed. c. melatonin 3 mg OTC d. Monitor sleep quality. 4. Suicidal Ideation - Reports no passive suicidal thoughts - Denies plan/intent. - Plan: a. Close monitoring. b. Encourage 988 hotline use if needed. c. Follow up on for medication effect. e. advised to go to the emergency room if thoughts get worse or unmanageable. 5. OCD A. fluvoxamine to 50mg. 6. Increased Appetite - Reports constant hunger. - Plan: a. Monitor appetite/weight. b. Discuss healthy eating habits. c. heart healthy diet and excise 7. Headache - Reports headaches, not severe. - Plan: see PCP patient will schedule appt a. Monitor frequency/severity. b. Consider medication side effects. c. Recommend OTC relief as needed. d. sleep hygiene education 8. Medication Refill - Fluvoxamine sent 05/05/24 - Aripiprazole to 30 mg HS.- RX SENT 05/05/24 - Plan: Send refill to [facility] 8. Follow-up - Appointment with [facility] on . - Plan: Continue monitoring progress and medication response. Recommend decrease/stop cannabis use as it can negatively impact mood, motivation, anxiety, sleep, focus/concentration /memory (vigilance, elasticity, processing and attention); can also contribute to development of psychosis. Cannabis/marijuana information: http_s://shaheed.nih.g ov/publications/janice gfacts/cannabis-mar lopezuana http_s://www.Social Rewards.Safecare/cannabis- osj-hoorqqvs-uwmeiy avinash-adhd/ http_s://www.maribel.o /Gubmh-Oirwbn-Dxp ness/Mental-Health- Conditions http_s://psychcentr Isotera.com/depression/t pq-jwnktdbxm-qevbqb hg-lt-ugqjolhrfi#tr eatments http__s://www.nimh. nih.gov/health/topi cs/fhueyt-fmjonb-bo dications http__s://www.maribel. org/Cclfd-Eubyza-Bw lness/Treatments/Me ecmi-Xbyuxd-Hyoalhx ions educated on all medications, benefits, side effects and risk, and educated on depression, anxiety, and ADHD, mood d/o and educated on compliance of medications, metabolic and movement d/o education appointment's, continue therapy discussion with patient about course of treatment and patient instructions. education on serotonin syndrome Discussed and educated pt regarding benzodiazepines are generally not intended for prolonged use and that use can cause tolerance, dependence, depression, and associated memory issues including dementias (this list is not exhaustive). Benzodiazepine use is generally not recommended concurrently with pain medications and/or other controlled substances educated on all medications, benefits, side effects and risk, and educated on depression, anxiety, and ADHD, mood d/o and educated on compliance of medications, metabolic and movement d/o education appointment is, continue therapy discussion with patient about course of treatment and patient instructions. education on serotonin syndrome SSRI/SNRI side effects discussed including but not limited to, gastric upset, nausea, vomiting, diarrhea and/or constipation, weight changes, sexual side effects including loss of libido, increased suicidal thoughts/behaviors in children and young adults, and serotonin syndrome. Second generation antipsychotics (SGAs) have metabolic syndrome issues with weight gain, increase in prolactin, increased waist circumference, increased lipids, and increased glucose. Thus routine monitoring of weight, metabolic labs, etc. is indicated. A general rank ordering of antipsychotics that have the greatest to the least risk of metabolic effects is olanzapine, quetiapine, risperidone, ziprasidone, and aripiprazole. However, weight gain can occur with all of these drugs and considerable variability exists among patients receiving the same drug regarding the risk of metabolic effects. Anti-psychotic agents not only increase the risk of metabolic disorder, they also increase the risk of CVA, akathisia, and movement disorders including EPS or tardive dyskinesia (more common with first generation antipsychotics) and more. Medication Management and Follow-Up - Plan: - Schedule follow-up appointments every 1-3 months to monitor the patient's response to the medication regimen. - Reinforce the importance of avoiding recreational drug use due to potential neurotoxicity and interactions with prescribed medications. Risk- Depakote can cause major congenital malformations incl. neural tube defects, decr. IQ scores, neurodevelopmental disorders after in utero exposure; contraindicated for migraine prophylaxis use in and women of reproductive potential w/o effective contraception; should not be used for epilepsy or bipolar disorder use in and women planning to become unless other tx options have failed or are unacceptable; women should use effective contraception during tx 05/15/2024 Hypertension, unspecified type (ICD9-CM - 401.9) 1. Anxiety -a. Patient reports anxiety level with intrusive thoughts.- therapy b. discuss and educated on Vistaril 10 mg three tmes a day PRN for anxiety and may take 1/2 dose (5 mg) in day if make tired - therapy continue - Plan: a. b. fluvoxamine to 100mg. - anxiety and OCD c. Monitor medication response. d. Encourage suicide hotline (BackOps8) use if needed. e. advised when to seek emergency services. 2. Bipolar Disorder - lithium and Depakote for manic and depression - reported tolerating well and helping mood. - No changes - Plan: a. Continue Depakote 500mg BID and lithium 150mg BID - educated on labs for [place] and Depakote level. b. Follow up [facility] and therapy scheduled C. Abilify 30 mg at bedtime- patient reported has not picked up yet - prescribed 05/05/24 from [facility] walk in clinic planned Tubal 05/29/24 3. Insomnia - Reports 9-10 hours - Plan: a.. sleep hygiene b. Continue melatonin 30min before bed. c. melatonin 3 mg OTC d. Monitor sleep quality. Trazodone 50 mg PRN 4. Suicidal Ideation- stable - Reports no passive suicidal thoughts - Denies plan/intent. - Plan: a. Close monitoring. b. Encourage 988 hotline use if needed. c. Follow up [facility] and seeing therapist e. advised to go to the emergency room if thoughts get worse or unmanageable. 5. OCD- increase thoughts and behaviors on 50 mg dose A. increase fluvoxamine to 100mg. 6. Appetite normal now - Reports constant hunger. - Plan: a. Monitor appetite/weight. b. Discuss healthy eating habits. c. heart healthy diet and excise 7. Headache - Reports headaches, improved - Plan: see PCP patient will schedule appt and discuss HTN a. Monitor frequency/severity. b. Consider medication side effects. c. Recommend OTC relief as needed. d. sleep hygiene education 8. Medication Refill - Plan: Send refill to [facility]. Recommend decrease/stop cannabis use as it can negatively impact mood, motivation, anxiety, sleep, focus/concentration /memory (vigilance, elasticity, processing and attention); can also contribute to development of psychosis. Cannabis/marijuana information: http_s://shaheed.nih.g ov/publications/janice gfacts/cannabis-mar ijuana http_s://www.Weight Wins/cannabis- voh-ckauljwl-hbdcuq avinash-adhd/ http_s://www.maribel.o rg/Rnsqs-Vowazq-Zvg ness/Mental-Health- Conditions http_s://psychcentr Isotera.com/depression/t oj-yrmutpdss-dipjkl rn-ez-oyfjulhfqd#tr eatments http__s://www.nimh. nih.gov/health/topi cs/tgtcrd-knpquj-lk dications http__s://www.maribel. org/Cswbf-Nxdtpr-Js lness/Treatments/Me bbrk-Uwvmgr-Vidlpmw ions educated on all medications, benefits, side effects and risk, and educated on depression, anxiety, and ADHD, mood d/o and educated on compliance of medications, metabolic and movement d/o education appointment's, continue therapy discussion with patient about course of treatment and patient instructions. education on serotonin syndrome Discussed and educated pt regarding benzodiazepines are generally not intended for prolonged use and that use can cause tolerance, dependence, depression, and associated memory issues including dementias (this list is not exhaustive). Benzodiazepine use is generally not recommended concurrently with pain medications and/or other controlled substances educated on all medications, benefits, side effects and risk, and educated on depression, anxiety, and ADHD, mood d/o and educated on compliance of medications, metabolic and movement d/o education appointment is, continue therapy discussion with patient about course of treatment and patient instructions. education on serotonin syndrome SSRI/SNRI side effects discussed including but not limited to, gastric upset, nausea, vomiting, diarrhea and/or constipation, weight changes, sexual side effects including loss of libido, increased suicidal thoughts/behaviors in children and young adults, and serotonin syndrome. Second generation antipsychotics (SGAs) have metabolic syndrome issues with weight gain, increase in prolactin, increased waist circumference, increased lipids, and increased glucose. Thus routine monitoring of weight, metabolic labs, etc. is indicated. A general rank ordering of antipsychotics that have the greatest to the least risk of metabolic effects is olanzapine, quetiapine, risperidone, ziprasidone, and aripiprazole. However, weight gain can occur with all of these drugs and considerable variability exists among patients receiving the same drug regarding the risk of metabolic effects. Anti-psychotic agents not only increase the risk of metabolic disorder, they also increase the risk of CVA, akathisia, and movement disorders including EPS or tardive dyskinesia (more common with first generation antipsychotics) and more. 07/17/2024 ADHD (attention deficit hyperactivity disorder), combined type (ICD-10 - F90.2) 1. Anxiety -a. Patient reports improved anxiety level with intrusive thoughts.- therapy b. discuss and educated on Vistaril 10 mg at bedtime for anxiety and may take 1/2 dose (5 mg) in day if make tired - therapy continue - Plan: continue rx no refills needed today insurance requires 30 days at a time with refills OCD A. fluvoxamine to 100mg. - anxiety and OCD- improved B. Monitor medication response. C. Encourage suicide hotline (097) use if needed. D. advised when to seek emergency services. 2. Bipolar Disorder educated on therapy and CBT/DBT. EDMR- will work on situational stressors and fears in therapy Educated on proper use light box and not to stay in basement in day and come upstairs in day and open curtains, and outside help depression - lithium and Depakote for manic and depression - reported tolerating well and helping mood. - No changes - Plan: Continue Depakote 500 mg BID will decrease lithium 150 mg in am and monitor tremors in hands - plan to taper off [place] - educated on labs for [place] and Depakote level. . Follow up [facility] and therapy scheduled- will make list of concerns for therapy and work on situational stressors, fears, and emotions in therapy Abilify 30 mg at bedtime- prescribed 05/05/24 from [facility] walk in clinic- discuss may plan to decrease dose in furture - patient has had recent eduardo/hypomania and depression recently labs completed 05/28/24 Valporic acid 36, [place] 0.4, WBC, CMP, CARDIAC enzymes scanned into chart Gene [employer] reviewed and Abilify may need to be decrease in future - patient reported been working well Tubal 05/30/24- recovery well 3. Insomnia - Reports sleep apnea no CPAP presently using - Plan: a.. sleep hygiene b. Continue melatonin 30min before bed. c. melatonin 3 mg OTC d. Monitor sleep quality. Trazodone 50 mg PRN- reported not taking 4. Suicidal Ideation- stable - Reports no passive suicidal thoughts - Denies plan/intent. a. Close monitoring. b. Encourage 569/961 hotline use if needed. c. Follow up [facility] and seeing therapist e. advised to go to the emergency room if thoughts get worse or unmanageable. 5. OCD- thoughts and behaviors A. fluvoxamine to 100mg. 6. appetite - Reports varies a. Monitor appetite/weight. b. Discuss healthy eating habits. c. heart healthy diet and excise 7. Headache - Reports headaches same - Plan: see PCP patient will schedule appt and discuss HTN- new patient appt schedules and seen licensed nursing assistant with HTN and adjusting rx a. Monitor frequency/severity. b. Consider medication side effects. c. Recommend OTC relief as needed. d. sleep hygiene education no NSAIDS ADHD Comination hx since childhood and rx at childhood and adult LIDIA-2 TEST SCHEDULED - Plan: Send refill to [facility]- need 30 days at a time r/t insurance Gene [employer] discuss Follow up [facility] and therapy scheduled- will make list of concerns for therapy and work on situational stressors, fears, and emotions in therapy Recommend decrease/stop cannabis use as it can negatively impact mood, motivation, anxiety, sleep, focus/concentration /memory (vigilance, elasticity, processing and attention); can also contribute to development of psychosis. Cannabis/marijuana information: http_s://shaheed.nih.g ov/publications/janice gfacts/cannabis-mar ijuana http_s://www.Weight Wins/cannabis- cac-aasntvqw-fowqqe avinash-adhd/ http_s://www.maribel.o /Jimuh-Ztprfp-Yjo ness/Mental-Health- Conditions http_s://psychcentr Isotera.com/depression/t nf-callqfiam-ehsfck zi-od-kczdjxgbdz#tr eatments http__s://www.nimh. nih.gov/health/topi cs/puvdsk-ffmrai-xn dications http__s://www.maribel. org/Edqvl-Knkpta-Ef lness/Treatments/Me voki-Lkswvf-Zchjssl ions educated on all medications, benefits, side effects and risk, and educated on depression, anxiety, and ADHD, mood d/o and educated on compliance of medications, metabolic and movement d/o education appointment's, continue therapy discussion with patient about course of treatment and patient instructions. education on serotonin syndrome Discussed and educated pt regarding benzodiazepines are generally not intended for prolonged use and that use can cause tolerance, dependence, depression, and associated memory issues including dementias (this list is not exhaustive). Benzodiazepine use is generally not recommended concurrently with pain medications and/or other controlled substances educated on all medications, benefits, side effects and risk, and educated on depression, anxiety, and ADHD, mood d/o and educated on compliance of medications, metabolic and movement d/o education appointment is, continue therapy discussion with patient about course of treatment and patient instructions. education on serotonin syndrome SSRI/SNRI side effects discussed including but not limited to, gastric upset, nausea, vomiting, diarrhea and/or constipation, weight changes, sexual side effects including loss of libido, increased suicidal thoughts/behaviors in children and young adults, and serotonin syndrome. Second generation antipsychotics (SGAs) have metabolic syndrome issues with weight gain, increase in prolactin, increased waist circumference, increased lipids, and increased glucose. Thus routine monitoring of weight, metabolic labs, etc. is indicated. A general rank ordering of antipsychotics that have the greatest to the least risk of metabolic effects is olanzapine, quetiapine, risperidone, ziprasidone, and aripiprazole. However, weight gain can occur with all of these drugs and considerable variability exists among patients receiving the same drug regarding the risk of metabolic effects. Anti-psychotic agents not only increase the risk of metabolic disorder, they also increase the risk of CVA, akathisia, and movement disorders including EPS or tardive dyskinesia (more common with first generation antipsychotics) and more. 08/25/2024 ADHD (attention deficit hyperactivity disorder), combined type (ICD-10 - F90.2) Attention Deficit Hyperactivity Disorder (ADHD) in Adults: Care Instructions material was published, Learning About Attention Deficit Hyperactivity Disorder (ADHD) in Adults material was published, Learning About Stimulant Medicines for Attention Deficit Hyperactivity Disorder (ADHD) material was published 1. Anxiety -a. Patient reports improved anxiety level with intrusive thoughts.- therapy b. discuss and educated on Vistaril 10 mg at bedtime for anxiety and may take 1/2 dose (5 mg) in day if make tired - therapy continue - Plan: continue insurance requires 30 days at a time with refills OCD A. fluvoxamine to 100mg. - anxiety and OCD- improved B. Monitor medication response. C. Encourage suicide hotline (735) use if needed. D. advised when to seek emergency services. 2. Bipolar Disorder educated on therapy and CBT/DBT. EDMR- will work on situational stressors and fears in therapy Educated on proper use light box and not to stay in basement in day and come upstairs in day and open curtains, and outside help depression - lithium and Depakote for manic and depression - reported tolerating well and helping mood. Continue Depakote 500 mg BID Patient increased lithium 150 mg twice a day r/t eduardo s/s at once a day and improved and monitor tremors in hands - Discuss Gene sight and switch from Abilify to Invega for Bipolar to control symptoms - will decrease Abilify to 20 mg daily and add Invega 3 mg daily patient will be on 2 anti-psychotics at tthis time while tapering off Abilify to control s/s discuss and educated on Invega injections for near future plan to taper off [place] r/t tremors - educated on labs for [place] and Depakote level. . Follow up [facility] and therapy scheduled- will make list of concerns for therapy and work on situational stressors, fears, and emotions in therapy labs completed 05/28/24 Valporic acid 36, [place] 0.4, WBC, CMP, CARDIAC enzymes scanned into chart LABS SCHEDULED today PCP will add [place] and Depakote Gene sight reviewed and Abilify may need to be decrease in future - patient reported been working well Tubal 05/30/24- 3. Insomnia - Reports sleep apnea -no CPAP presently not using- plan on getting new CPAP - Plan: a.. sleep hygiene b. Continue melatonin 30min before bed. c. melatonin 3 mg OTC d. Monitor sleep quality. 4. Suicidal Ideation- stable - Reports no passive suicidal thoughts - Denies plan/intent. a. Close monitoring. b. Encourage 888/891 hotline use if needed. c. Follow up [facility] and seeing therapist e. advised to go to the emergency room if thoughts get worse or unmanageable. 5. OCD- thoughts and behaviors fluvoxamine to 100mg. 6.ADHD Comination hx since childhood and rx at childhood and adult LIDIA-AE 2 TEST Reviewed test results are congruent for ADHD combination discuss and educated on non-stimulates and stimualtes reviewed Gene sight - Vyvanse, Dextroamphetamine, and Adderall has no proven genetic markers Focalin and Concerta moderate gene- drug interaction and genotype may impact drug mechanism of action and result in moderate reduce efficacy Plan: Guanfacine use as directed discuss and educated and will add Guanfacine 1 mg daily in am Qelbree- Moderate gene interaction- serum levls may be too low and lower doses may be needed Straterra- significant gene and drug interaction- serum levels too high and lower dose may be needed, CYP2D6 indicate increase side effects, but also greater symptom improvement with those find tx toleratable, potential gene interaction ADHD stimulates education Discuss with patient risk of misuse, abuse, and addiction before prescribing stimulant medicines. 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 Educate patients and their families on these serious risks, proper storage of the medicine, and proper disposal of any unused medicine. Educated patient will monitor Throughout treatment, regularly assess and monitor them for signs and symptoms of nonmedical use, addiction, and potential diversion, which may be evidenced by more frequent renewal. requests than warranted by the prescribed dosage. Random UDS [place] prescription reviewed local pharmacy in [place], no early refills on control substance educated on non-stimulate and stimulates - Plan: Send refill to [facility] need 30 days at a time r/t insurance Gene [employer] discuss Follow up [facility] and therapy scheduled- will make list of concerns for therapy and work on situational stressors, fears, and emotions in therapy educated on cannabis use as it can negatively impact mood, motivation, anxiety, sleep, focus/concentration /memory (vigilance, elasticity, processing and attention); can also contribute to development of psychosis. Cannabis/marijuana information: http_s://shaheed.nih.g ov/publications/janice gfacts/cannabis-mar ijuana http_s://www.Weight Wins/cannabis- kvq-uqkpkhhx-yizkfm avinash-adhd/ http_s://www.maribel.o rg/Cnbrh-Xwnruk-Dvs ness/Mental-Health- Conditions http_s://psych5 CUPS and some sugarr Isotera.com/depression/t tg-sokcnabfv-qinpwo fw-nq-gxabqtteej#tr eatments http__s://www.nimh. nih.gov/health/topi cs/zxcdqw-izuock-ma dications http__s://www.maribel. org/Lwubs-Rtmljt-Ur lness/Treatments/Me gwrw-Bxzouv-Tdxyxye ions educated on all medications, benefits, side effects and risk, and educated on depression, anxiety, and ADHD, mood d/o and educated on compliance of medications, metabolic and movement d/o education appointment's, continue therapy discussion with patient about course of treatment and patient instructions. education on serotonin syndrome Discussed and educated pt regarding benzodiazepines are generally not intended for prolonged use and that use can cause tolerance, dependence, depression, and associated memory issues including dementias (this list is not exhaustive). Benzodiazepine use is generally not recommended concurrently with pain medications and/or other controlled substances educated on all medications, benefits, side effects and risk, and educated on depression, anxiety, and ADHD, mood d/o and educated on compliance of medications, metabolic and movement d/o education appointment is, continue therapy discussion with patient about course of treatment and patient instructions. education on serotonin syndrome SSRI/SNRI side effects discussed including but not limited to, gastric upset, nausea, vomiting, diarrhea and/or constipation, weight changes, sexual side effects including loss of libido, increased suicidal thoughts/behaviors in children and young adults, and serotonin syndrome. Second generation antipsychotics (SGAs) have metabolic syndrome issues with weight gain, increase in prolactin, increased waist circumference, increased lipids, and increased glucose. Thus routine monitoring of weight, metabolic labs, etc. is indicated. A general rank ordering of antipsychotics that have the greatest to the least risk of metabolic effects is olanzapine, quetiapine, risperidone, ziprasidone, and aripiprazole. However, weight gain can occur with all of these drugs and considerable variability exists among patients receiving the same drug regarding the risk of metabolic effects. Anti-psychotic agents not only increase the risk of metabolic disorder, they also increase the risk of CVA, akathisia, and movement disorders including EPS or tardive dyskinesia (more common with first generation antipsychotics) and more. 09/15/2024 ADHD (attention deficit hyperactivity disorder), combined type (ICD-10 - F90.2) Attention Deficit Hyperactivity Disorder (ADHD) in Adults: Care Instructions material was published, Learning About Attention Deficit Hyperactivity Disorder (ADHD) in Adults material was published, Learning About Stimulant Medicines for Attention Deficit Hyperactivity Disorder (ADHD) material was published 1. Anxiety -a. Patient reports improved anxiety level with intrusive thoughts.- therapy b. discuss and educated on all rx Increase Vistaril 10 mg up to three times a day for anxiety - therapy continue - Plan: continue insurance requires 30 days at a time with refills OCD A. fluvoxamine to 100mg. - anxiety and OCD- improved B. Monitor medication response. C. Encourage suicide hotline (669) use if needed. D. advised when to seek emergency services. 2. Bipolar Disorder educated on therapy and CBT/DBT. EDMR- will work on situational stressors and fears in therapy Educated on proper use light box and not to stay in basement in day and come upstairs in day and open curtains, and outside help depression - lithium and Depakote for manic and depression - reported tolerating well and helping mood. Continue Depakote 500 mg BID lithium 150 mg twice a day hx r/t eduardo s/s at once a day and improved and monitor tremors in hands - Discuss Gene sight and Invega for Bipolar to control symptoms - Invega 3 mg daily contiue discuss and educated on Invega injections for near future- pateint agreed plan to taper off [place] r/t tremors - educated on labs for [place] and Depakote level.- patient reported will have done Sunday . Follow up [facility] and therapy scheduled- will make list of concerns for therapy and work on situational stressors, fears, and emotions in therapy labs completed 05/28/24 Valporic acid 36, [place] 0.4, WBC, CMP, CARDIAC enzymes scanned into chart Gene sight reviewed and Abilify may need to be decrease in future - patient reported been working well Tubal 05/30/24- 3. Insomnia - Reports sleep apnea -no CPAP presently not using- plan on getting new CPAP PCP ordered - Plan: a.. sleep hygiene b. Continue melatonin 30min before bed. c. melatonin 3 mg OTC d. Monitor sleep quality. 4. Suicidal Ideation- stable - Reports no passive suicidal thoughts - Denies plan/intent. a. Close monitoring. b. Encourage 568/261 hotline use if needed. c. Follow up [facility] and seeing therapist e. advised to go to the emergency room if thoughts get worse or unmanageable. 5. OCD- thoughts and behaviors fluvoxamine to 100mg. 6.ADHD Comination hx since childhood and rx at childhood and adult LIDIA-AE 2 TEST Reviewed test results are congruent for ADHD combination discuss and educated on non-stimulates and stimualtes reviewed Gene sight - Vyvanse, Dextroamphetamine, and Adderall has no proven genetic markers Focalin and Concerta moderate gene- drug interaction and genotype may impact drug mechanism of action and result in moderate reduce efficacy Plan: Guanfacine use as directed discuss and educated and will add Guanfacine 1 mg daily in am [place]ree- Moderate gene interaction- serum levls may be too low and lower doses may be needed Straterra- significant gene and drug interaction- serum levels too high and lower dose may be needed, CYP2D6 indicate increase side effects, but also greater symptom improvement with those find tx toleratable, potential gene interaction ADHD stimulates education Discuss with patient risk of misuse, abuse, and addiction before prescribing stimulant medicines. 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 Educate patients and their families on these serious risks, proper storage of the medicine, and proper disposal of any unused medicine. Educated patient will monitor Throughout treatment, regularly assess and monitor them for signs and symptoms of nonmedical use, addiction, and potential diversion, which may be evidenced by more frequent renewal. requests than warranted by the prescribed dosage. Random UDS [place] prescription reviewed local pharmacy in [place], no early refills on control substance educated on non-stimulate and stimulates - Plan: Send refill to [facility] need 30 days at a time r/t insurance Gene Sight discuss Follow up MIRELA and therapy scheduled- will make list of concerns for therapy and work on situational stressors, fears, and emotions in therapy educated on cannabis use as it can negatively impact mood, motivation, anxiety, sleep, focus/concentration /memory (vigilance, elasticity, processing and attention); can also contribute to development of psychosis. Cannabis/marijuana information: http_s://shaheed.nih.g ov/publications/janice gfacts/cannabis-mar ijuana http_s://www.Weight Wins/cannabis- jor-xeiddzjg-wohflg avinash-adhd/ http_s://www.maribel.o rg/Ttjpf-Iehzon-Cfy ness/Mental-Health- Conditions http_s://psych5 CUPS and some sugarr Isotera.Safecare/depression/t rg-srxrrcudu-cgfchg qx-kl-gkgdbqvyuy#tr eatments http__s://www.nimh. nih.gov/health/topi cs/secyhk-ohyyoy-hu dications http__s://www.maribel. org/Trrne-Tviywy-Mi lness/Treatments/Me lmul-Hobqwp-Bojxbcp ions educated on all medications, benefits, side effects and risk, and educated on depression, anxiety, and ADHD, mood d/o and educated on compliance of medications, metabolic and movement d/o education appointment's, continue therapy discussion with patient about course of treatment and patient instructions. education on serotonin syndrome Discussed and educated pt regarding benzodiazepines are generally not intended for prolonged use and that use can cause tolerance, dependence, depression, and associated memory issues including dementias (this list is not exhaustive). Benzodiazepine use is generally not recommended concurrently with pain medications and/or other controlled substances educated on all medications, benefits, side effects and risk, and educated on depression, anxiety, and ADHD, mood d/o and educated on compliance of medications, metabolic and movement d/o education appointment is, continue therapy discussion with patient about course of treatment and patient instructions. education on serotonin syndrome SSRI/SNRI side effects discussed including but not limited to, gastric upset, nausea, vomiting, diarrhea and/or constipation, weight changes, sexual side effects including loss of libido, increased suicidal thoughts/behaviors in children and young adults, and serotonin syndrome. Second generation antipsychotics (SGAs) have metabolic syndrome issues with weight gain, increase in prolactin, increased waist circumference, increased lipids, and increased glucose. Thus routine monitoring of weight, metabolic labs, etc. is indicated. A general rank ordering of antipsychotics that have the greatest to the least risk of metabolic effects is olanzapine, quetiapine, risperidone, ziprasidone, and aripiprazole. However, weight gain can occur with all of these drugs and considerable variability exists among patients receiving the same drug regarding the risk of metabolic effects. Anti-psychotic agents not only increase the risk of metabolic disorder, they also increase the risk of CVA, akathisia, and movement disorders including EPS or tardive dyskinesia (more common with first generation antipsychotics) and more. 09/17/2024 ADHD (attention deficit hyperactivity disorder), combined type (ICD-10 - F90.2) Attention Deficit Hyperactivity Disorder (ADHD) in Adults: Care Instructions material was published, Learning About Attention Deficit Hyperactivity Disorder (ADHD) in Adults material was published, Learning About Stimulant Medicines for Attention Deficit Hyperactivity Disorder (ADHD) material was published 10/06/2024 ADHD (attention deficit hyperactivity disorder), combined type (ICD-10 - F90.2) Attention Deficit Hyperactivity Disorder (ADHD) in Adults: Care Instructions material was published, Learning About Attention Deficit Hyperactivity Disorder (ADHD) in Adults material was published, Learning About Stimulant Medicines for Attention Deficit Hyperactivity Disorder (ADHD) material was published Attention Deficit Hyperactivity Disorder (ADHD) in Adults: Care Instructions material was published, Learning About Attention Deficit Hyperactivity Disorder (ADHD) in Adults material was published, Learning About Stimulant Medicines for Attention Deficit Hyperactivity Disorder (ADHD) material was published 1. Anxiety -a. Patient reports anxiety level with intrusive thoughts.- therapy b. discuss and educated on all rx Increase Vistaril 25 mg three time a day for anxiety- reported 10 mg dose not helping - therapy continue- discuss DBT/CBT therapy discuss IOP program discuss journaling, coping skills, and identify triggers insurance requires 30 days at a time with refills 2. OCD A. fluvoxamine to 100mg. - anxiety and OCD- B. Monitor medication response. C. Encourage suicide hotline (563) use if needed. D. advised when to seek emergency services. 3. Bipolar Disorder educated on therapy and CBT/DBT. ED- will work on situational stressors and fears in therapy Educated on proper use light box and not to stay in basement in day and come upstairs in day and open curtains, and outside help depression - lithium and Depakote for manic and depression - reported tolerating well and helping mood. Continue Depakote 500 mg BID lithium 150 mg twice a day hx r/t eduardo s/s at once a day and improved and monitor tremors in hands - labs 09/30 [place] 0.3 Depakote 33.6 Discuss Gene sight and Invega for Bipolar to control symptoms - Invega 3 mg daily continue discuss and educated on Invega injections for near future- pateint agreed plan to taper off [place] r/t tremors - educated on labs for [place] and Depakote level.- [facility] . Follow up MIRELA and therapy scheduled- will make list of concerns for therapy and work on situational stressors, fears, and emotions in therapy labs completed 09/30 Gene sight reviewed and Abilify may need to be decrease in future - patient reported been working well Tubal 05/30/24- 3. Insomnia - Reports sleep apnea -no CPAP presently not using- plan on getting new CPAP- PCP ordered - Plan: a.. sleep hygiene b. Continue melatonin 30min before bed. c. melatonin 3 mg OTC d. Monitor sleep quality. 4. Suicidal Ideation- stable - Reports no passive suicidal thoughts - Denies plan/intent. a. Close monitoring. b. Encourage 898/191 hotline use if needed. c. Follow up MIRELA and seeing therapist e. advised to go to the emergency room if thoughts get worse or unmanageable. 5. OCD- thoughts and behaviors fluvoxamine to 100mg. 6.ADHD Comination hx since childhood and rx at childhood and adult LIDIA-AE 2 TEST Reviewed test results are congruent for ADHD combination discuss and educated on non-stimulates and stimualtes reviewed Gene sight - Vyvanse, Dextroamphetamine, and Adderall has no proven genetic markers Focalin and Concerta moderate gene- drug interaction and genotype may impact drug mechanism of action and result in moderate reduce efficacy discuss and educated ] Guanfacine 1 mg daily in am [place]- Moderate gene interaction- serum levls may be too low and lower doses may be needed Straterra- significant gene and drug interaction- serum levels too high and lower dose may be needed, CYP2D6 indicate increase side effects, but also greater symptom improvement with those find tx toleratable, potential gene interaction ADHD stimulates education Discuss with patient risk of misuse, abuse, and addiction before prescribing stimulant medicines. 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 Educate patients and their families on these serious risks, proper storage of the medicine, and proper disposal of any unused medicine. Educated patient will monitor Throughout treatment, regularly assess and monitor them for signs and symptoms of nonmedical use, addiction, and potential diversion, which may be evidenced by more frequent renewal. requests than warranted by the prescribed dosage. Random UDS [place] prescription reviewed local pharmacy in [facility], no early refills on control substance educated on non-stimulate and stimulates - Plan: Send refill to [facility] need 30 days at a time r/t insurance Gene Sight discuss Follow up MIRELA and therapy scheduled- will make list of concerns for therapy and work on situational stressors, fears, and emotions in therapy educated on cannabis use as it can negatively impact mood, motivation, anxiety, sleep, focus/concentration /memory (vigilance, elasticity, processing and attention); can also contribute to development of psychosis. Cannabis/marijuana information: http_s://shaheed.nih.g ov/publications/janice gfacts/cannabis-mar ijuana http_s://www.Weight Wins/cannabis- cup-siesnlub-uhfjnz avinash-adhd/ http_s://www.maribel.o rg/Ljtpv-Ohmktx-Tjh ness/Mental-Health- Conditions http_s://psychcentr Isotera.com/depression/t iw-ierjrjftn-knttsi fi-ni-ytweyowvwz#tr eatments http__s://www.nimh. nih.gov/health/topi cs/nlnijw-tmobcw-sd dications http__s://www.maribel. org/Rmpmh-Pssbxe-Vv lness/Treatments/Me syvl-Zikjch-Hkrdbge ions educated on all medications, benefits, side effects and risk, and educated on depression, anxiety, and ADHD, mood d/o and educated on compliance of medications, metabolic and movement d/o education appointment's, continue therapy discussion with patient about course of treatment and patient instructions. education on serotonin syndrome Discussed and educated pt regarding benzodiazepines are generally not intended for prolonged use and that use can cause tolerance, dependence, depression, and associated memory issues including dementias (this list is not exhaustive). Benzodiazepine use is generally not recommended concurrently with pain medications and/or other controlled substances educated on all medications, benefits, side effects and risk, and educated on depression, anxiety, and ADHD, mood d/o and educated on compliance of medications, metabolic and movement d/o education appointment is, continue therapy discussion with patient about course of treatment and patient instructions. education on serotonin syndrome SSRI/SNRI side effects discussed including but not limited to, gastric upset, nausea, vomiting, diarrhea and/or constipation, weight changes, sexual side effects including loss of libido, increased suicidal thoughts/behaviors in children and young adults, and serotonin syndrome. Second generation antipsychotics (SGAs) have metabolic syndrome issues with weight gain, increase in prolactin, increased waist circumference, increased lipids, and increased glucose. Thus routine monitoring of weight, metabolic labs, etc. is indicated. A general rank ordering of antipsychotics that have the greatest to the least risk of metabolic effects is olanzapine, quetiapine, risperidone, ziprasidone, and aripiprazole. However, weight gain can occur with all of these drugs and considerable variability exists among patients receiving the same drug regarding the risk of metabolic effects. Anti-psychotic agents not only increase the risk of metabolic disorder, they also increase the risk of CVA, akathisia, and movement disorders including EPS or tardive dyskinesia (more common with first generation antipsychotics) and more. 01/30/2025 Encounter for screening for depression (ICD-10 - Z13.31) 1. Anxiety hx Patient reports anxiety level with intrusive thoughts and fear of night and sleep, and being alone discuss making list of thoughts, goals, plans and place in action discuss activity for day sleep hygiene education continue therapy discuss and educated on all rx Vistaril 10 mg three time a day for anxiety- HX Vistaril reported 25 mg dose more on edge - therapy continue- discuss DBT/CBT therapy discuss IOP program discuss journaling, coping skills, and identify triggers insurance requires 30 days at a time with refills 2. OCD A. fluvoxamine to 100mg. - anxiety and OCD- helping B. Monitor medication response. Encourage suicide hotline (316) use if needed.. advised when to seek emergency services. 3. Bipolar Disorder educated on therapy and CBT/DBT. EDMR- will work on situational stressors and fears in therapy Educated on proper use light box and not to stay in basement in day and come upstairs in day and open curtains, and outside help depression - lithium and Depakote for manic and depression - reported tolerating well and helping mood. Continue Depakote 500 mg BID lithium 150 mg twice a day hx r/t eduardo s/s at once a day and improved and monitor tremors in hands - labs 10/28 [place] 0.3 Depakote 33.6 Discuss Gene sight and Invega for Bipolar to control symptoms - Invega 3 mg daily continue discuss and educated on Invega injections for near future- Risk- Depakote can cause major congenital malformations incl. neural tube defects, decr. IQ scores, neurodevelopmental disorders after in utero exposure; contraindicated for migraine prophylaxis use in and women of reproductive potential w/o effective contraception; should not be used for epilepsy or bipolar disorder use in and women planning to become unless other tx options have failed or are unacceptable; women should use effective contraception during tx plan to taper off [place] r/t tremors - educated on labs for [place] and Depakote level.- [facility] . Follow up MIRELA and therapy scheduled- will make list of concerns for therapy and work on situational stressors, fears, and emotions in therapy labs completed 09/30 Gene sight reviewed and Abilify may need to be decrease in future - patient reported been working well Tubal 05/30/24- 3. Insomnia - Reports sleep apnea -no CPAP presently not using- plan on getting new CPAP- PCP ordered- still waiting on CPAP 11/13/24 - Plan: a.. sleep hygiene b. Continue melatonin 30 min before bed. c. melatonin 5-10 mg OTC d. Monitor sleep quality. discuss sleep hygeine habits 4. Suicidal Ideation- stable - Reports no passive suicidal thoughts - Denies plan/intent. a. Close monitoring. b. Encourage 078/911 hotline use if needed. c. Follow up MIRELA and seeing therapist e. advised to go to the emergency room if thoughts get worse or unmanageable. 5. OCD- thoughts and behaviors fluvoxamine to 100mg. 6.ADHD Comination hx since childhood and rx at childhood and adult LIDIA-AE 2 TEST Reviewed test results are congruent for ADHD combination hx Wellbutrin 300 mg dose - SI and eduardo discuss and educated on non-stimulates and stimualtes reviewed Gene sight - Vyvanse, Dextroamphetamine, and Adderall has no proven genetic markers Focalin and Concerta moderate gene- drug interaction and genotype may impact drug mechanism of action and result in moderate reduce efficacy discuss and educated Guanfacine 1 mg daily in am- reported wants to restart at 1 mg dose since 2 mg dose caused dry mouth- [place]- Moderate gene interaction- serum levls may be too low and lower doses may be needed Straterra- significant gene and drug interaction- serum levels too high and lower dose may be needed, CYP2D6 indicate increase side effects, but also greater symptom improvement with those find tx toleratable, potential gene interaction ADHD stimulates education Discuss with patient risk of misuse, abuse, and addiction before prescribing stimulant medicines. 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 Educate patients and their families on these serious risks, proper storage of the medicine, and proper disposal of any unused medicine. Educated patient will monitor Throughout treatment, regularly assess and monitor them for signs and symptoms of nonmedical use, addiction, and potential diversion, which may be evidenced by more frequent renewal. requests than warranted by the prescribed dosage. Random S [place] prescription reviewed local pharmacy in [facility], no early refills on control substance educated on non-stimulate and stimulates - Plan: Send refill to [facility] need 30 days at a time r/t insurance Gene Sight discuss Follow up MIRELA and therapy scheduled- will make list of concerns for therapy and work on situational stressors, fears, and emotions in therapy educated on cannabis use as it can negatively impact mood, motivation, anxiety, sleep, focus/concentration /memory (vigilance, elasticity, processing and attention); can also contribute to development of psychosis. Cannabis/marijuana information: http_s://shaheed.nih.g ov/publications/janice gfacts/cannabis-mar ijuana http_s://www.[employer] Rewards.Safecare/cannabis- mkv-oqgpkouu-ysnzik avinash-adhd/ http_s://www.maribel.o rg/Gootb-Mbjirm-Ygp ness/Mental-Health- Conditions http_s://psychcentr Isotera.com/depression/t la-omzjrxhps-yalool jr-ar-xusbeydzko#tr eatments http__s://www.nimh. nih.gov/health/topi cs/qsoonr-ityiwm-mt dications http__s://www.maribel. org/Stxfa-Fagnds-Oc lness/Treatments/Me gnup-Bqzxkb-[place] ions educated on all medications, benefits, side effects and risk, and educated on depression, anxiety, and ADHD, mood d/o and educated on compliance of medications, metabolic and movement d/o education appointment's, continue therapy discussion with patient about course of treatment and patient instructions. education on serotonin syndrome Discussed and educated pt regarding benzodiazepines are generally not intended for prolonged use and that use can cause tolerance, dependence, depression, and associated memory issues including dementias (this list is not exhaustive). Benzodiazepine use is generally not recommended concurrently with pain medications and/or other controlled substances educated on all medications, benefits, side effects and risk, and educated on depression, anxiety, and ADHD, mood d/o and educated on compliance of medications, metabolic and movement d/o education appointment is, continue therapy discussion with patient about course of treatment and patient instructions. education on serotonin syndrome SSRI/SNRI side effects discussed including but not limited to, gastric upset, nausea, vomiting, diarrhea and/or constipation, weight changes, sexual side effects including loss of libido, increased suicidal thoughts/behaviors in children and young adults, and serotonin syndrome. Second generation antipsychotics (SGAs) have metabolic syndrome issues with weight gain, increase in prolactin, increased waist circumference, increased lipids, and increased glucose. Thus routine monitoring of weight, metabolic labs, etc. is indicated. A general rank ordering of antipsychotics that have the greatest to the least risk of metabolic effects is olanzapine, quetiapine, risperidone, ziprasidone, and aripiprazole. However, weight gain can occur with all of these drugs and considerable variability exists among patients receiving the same drug regarding the risk of metabolic effects. Anti-psychotic agents not only increase the risk of metabolic disorder, they also increase the risk of CVA, akathisia, and movement disorders including EPS or tardive dyskinesia (more common with first generation antipsychotics) and more. 11/13/2024 ADHD (attention deficit hyperactivity disorder), combined type (ICD-10 - F90.2) Attention Deficit Hyperactivity Disorder (ADHD) in Adults: Care Instructions material was published, Learning About Attention Deficit Hyperactivity Disorder (ADHD) in Adults material was published, Learning About Stimulant Medicines for Attention Deficit Hyperactivity Disorder (ADHD) material was published Attention Deficit Hyperactivity Disorder (ADHD) in Adults: Care Instructions material was published, Learning About Attention Deficit Hyperactivity Disorder (ADHD) in Adults material was published, Learning About Stimulant Medicines for Attention Deficit Hyperactivity Disorder (ADHD) material was published 1. Anxiety -a. Patient reports anxiety level with intrusive thoughts and fear of night and sleep, and being alone discuss making list of thoughts, goals, plans and place in action discuss activity for day sleep hygiene education continue therapy . discuss and educated on all rx Decrease Vistaril 10 mg three time a day for anxiety- reported 25 mg dose more on edge - therapy continue- discuss DBT/CBT therapy discuss IOP program discuss journaling, coping skills, and identify triggers insurance requires 30 days at a time with refills 2. OCD A. fluvoxamine to 100mg. - anxiety and OCD- helping B. Monitor medication response. Encourage suicide hotline (282) use if needed.. advised when to seek emergency services. 3. Bipolar Disorder educated on therapy and CBT/DBT. EDMR- will work on situational stressors and fears in therapy Educated on proper use light box and not to stay in basement in day and come upstairs in day and open curtains, and outside help depression - lithium and Depakote for manic and depression - reported tolerating well and helping mood. Continue Depakote 500 mg BID lithium 150 mg twice a day hx r/t eduardo s/s at once a day and improved and monitor tremors in hands - labs 09/30 [place] 0.3 Depakote 33.6 Discuss Gene sight and Invega for Bipolar to control symptoms - Invega 3 mg daily continue discuss and educated on Invega injections for near future- Risk- Depakote can cause major congenital malformations incl. neural tube defects, decr. IQ scores, neurodevelopmental disorders after in utero exposure; contraindicated for migraine prophylaxis use in and women of reproductive potential w/o effective contraception; should not be used for epilepsy or bipolar disorder use in and women planning to become unless other tx options have failed or are unacceptable; women should use effective contraception during tx plan to taper off [place] r/t tremors - educated on labs for [place] and Depakote level.- [facility] . Follow up MIRELA and therapy scheduled- will make list of concerns for therapy and work on situational stressors, fears, and emotions in therapy labs completed 09/30 Gene sight reviewed and Abilify may need to be decrease in future - patient reported been working well Tubal 05/30/24- 3. Insomnia - Reports sleep apnea -no CPAP presently not using- plan on getting new CPAP- PCP ordered- still waiting on CPAP 11/13/24 - Plan: a.. sleep hygiene b. Continue melatonin 30 min before bed. c. melatonin 5-10 mg OTC d. Monitor sleep quality. discuss sleep hygeine habits 4. Suicidal Ideation- stable - Reports no passive suicidal thoughts - Denies plan/intent. a. Close monitoring. b. Encourage 030/601 hotline use if needed. c. Follow up MIRELA and seeing therapist e. advised to go to the emergency room if thoughts get worse or unmanageable. 5. OCD- thoughts and behaviors fluvoxamine to 100mg. 6.ADHD Comination hx since childhood and rx at childhood and adult LIDIA-AE 2 TEST Reviewed test results are congruent for ADHD combination hx Wellbutrin 300 mg dose - SI and eduardo discuss and educated on non-stimulates and stimualtes reviewed Gene sight - Vyvanse, Dextroamphetamine, and Adderall has no proven genetic markers Focalin and Concerta moderate gene- drug interaction and genotype may impact drug mechanism of action and result in moderate reduce efficacy discuss and educated Guanfacine 1 mg daily in am- reported not helping- Qelbree- Moderate gene interaction- serum levls may be too low and lower doses may be needed Straterra- significant gene and drug interaction- serum levels too high and lower dose may be needed, CYP2D6 indicate increase side effects, but also greater symptom improvement with those find tx toleratable, potential gene interaction ADHD stimulates education Discuss with patient risk of misuse, abuse, and addiction before prescribing stimulant medicines. 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 Educate patients and their families on these serious risks, proper storage of the medicine, and proper disposal of any unused medicine. Educated patient will monitor Throughout treatment, regularly assess and monitor them for signs and symptoms of nonmedical use, addiction, and potential diversion, which may be evidenced by more frequent renewal. requests than warranted by the prescribed dosage. Random [facility] [place] prescription reviewed local pharmacy in [facility], no early refills on control substance educated on non-stimulate and stimulates - Plan: Send refill to [facility] need 30 days at a time r/t insurance Gene Sight discuss Follow up MIRELA and therapy scheduled- will make list of concerns for therapy and work on situational stressors, fears, and emotions in therapy educated on cannabis use as it can negatively impact mood, motivation, anxiety, sleep, focus/concentration /memory (vigilance, elasticity, processing and attention); can also contribute to development of psychosis. Cannabis/marijuana information: http_s://shaheed.nih.g ov/publications/janice gfacts/cannabis-mar ijuana http_s://www.Weight Wins/cannabis- oqo-gisqkbiv-diwtzj avinash-adhd/ http_s://www.maribel.o rg/Hlxxp-Qbobrm-Tbo ness/Mental-Health- Conditions http_s://psych5 CUPS and some sugarr Isotera.com/depression/t hk-bestxdsif-fcorpu gd-gd-lucjfkferu#tr eatments http__s://www.nimh. nih.gov/health/topi cs/zrauzu-evdycz-za dications http__s://www.maribel. org/Qqzba-Xvngyq-Ak lness/Treatments/Me fhpy-Ogywnb-Zfxulqe ions educated on all medications, benefits, side effects and risk, and educated on depression, anxiety, and ADHD, mood d/o and educated on compliance of medications, metabolic and movement d/o education appointment's, continue therapy discussion with patient about course of treatment and patient instructions. education on serotonin syndrome Discussed and educated pt regarding benzodiazepines are generally not intended for prolonged use and that use can cause tolerance, dependence, depression, and associated memory issues including dementias (this list is not exhaustive). Benzodiazepine use is generally not recommended concurrently with pain medications and/or other controlled substances educated on all medications, benefits, side effects and risk, and educated on depression, anxiety, and ADHD, mood d/o and educated on compliance of medications, metabolic and movement d/o education appointment is, continue therapy discussion with patient about course of treatment and patient instructions. education on serotonin syndrome SSRI/SNRI side effects discussed including but not limited to, gastric upset, nausea, vomiting, diarrhea and/or constipation, weight changes, sexual side effects including loss of libido, increased suicidal thoughts/behaviors in children and young adults, and serotonin syndrome. Second generation antipsychotics (SGAs) have metabolic syndrome issues with weight gain, increase in prolactin, increased waist circumference, increased lipids, and increased glucose. Thus routine monitoring of weight, metabolic labs, etc. is indicated. A general rank ordering of antipsychotics that have the greatest to the least risk of metabolic effects is olanzapine, quetiapine, risperidone, ziprasidone, and aripiprazole. However, weight gain can occur with all of these drugs and considerable variability exists among patients receiving the same drug regarding the risk of metabolic effects. Anti-psychotic agents not only increase the risk of metabolic disorder, they also increase the risk of CVA, akathisia, and movement disorders including EPS or tardive dyskinesia (more common with first generation antipsychotics) and more. 11/13/2024 Bipolar disorder with depression (ICD-10 - F31.9) Bipolar Disorder: Care Instructions material was published, Learning About Mood Disorders material was published, Learning About How to Get Help During a Mental Health Crisis material was published, Learning About Movement Disorders From Antipsychotic Medicines material was published 1. Anxiety -a. Patient reports anxiety level with intrusive thoughts and fear of night and sleep, and being alone discuss making list of thoughts, goals, plans and place in action discuss activity for day sleep hygiene education continue therapy . discuss and educated on all rx Decrease Vistaril 10 mg three time a day for anxiety- reported 25 mg dose more on edge - therapy continue- discuss DBT/CBT therapy discuss IOP program discuss journaling, coping skills, and identify triggers insurance requires 30 days at a time with refills 2. OCD A. fluvoxamine to 100mg. - anxiety and OCD- helping B. Monitor medication response. Encourage suicide hotline (031) use if needed.. advised when to seek emergency services. 3. Bipolar Disorder educated on therapy and CBT/DBT. ED- will work on situational stressors and fears in therapy Educated on proper use light box and not to stay in basement in day and come upstairs in day and open curtains, and outside help depression - lithium and Depakote for manic and depression - reported tolerating well and helping mood. Continue Depakote 500 mg BID lithium 150 mg twice a day hx r/t eduardo s/s at once a day and improved and monitor tremors in hands - labs 09/30 [place] 0.3 Depakote 33.6 Discuss Gene sight and Invega for Bipolar to control symptoms - Invega 3 mg daily continue discuss and educated on Invega injections for near future- Risk- Depakote can cause major congenital malformations incl. neural tube defects, decr. IQ scores, neurodevelopmental disorders after in utero exposure; contraindicated for migraine prophylaxis use in and women of reproductive potential w/o effective contraception; should not be used for epilepsy or bipolar disorder use in and women planning to become unless other tx options have failed or are unacceptable; women should use effective contraception during tx plan to taper off [place] r/t tremors - educated on labs for [place] and Depakote level.- [facility] . Follow up MIRELA and therapy scheduled- will make list of concerns for therapy and work on situational stressors, fears, and emotions in therapy labs completed 09/30 Gene sight reviewed and Abilify may need to be decrease in future - patient reported been working well Tubal 05/30/24- 3. Insomnia - Reports sleep apnea -no CPAP presently not using- plan on getting new CPAP- PCP ordered- still waiting on CPAP 11/13/24 - Plan: a.. sleep hygiene b. Continue melatonin 30 min before bed. c. melatonin 5-10 mg OTC d. Monitor sleep quality. discuss sleep hygeine habits 4. Suicidal Ideation- stable - Reports no passive suicidal thoughts - Denies plan/intent. a. Close monitoring. b. Encourage 848/661 hotline use if needed. c. Follow up MIRELA and seeing therapist e. advised to go to the emergency room if thoughts get worse or unmanageable. 5. OCD- thoughts and behaviors fluvoxamine to 100mg. 6.ADHD Comination hx since childhood and rx at childhood and adult LIDIA-AE 2 TEST Reviewed test results are congruent for ADHD combination hx Wellbutrin 300 mg dose - SI and eduardo discuss and educated on non-stimulates and stimualtes reviewed Gene sight - Vyvanse, Dextroamphetamine, and Adderall has no proven genetic markers Focalin and Concerta moderate gene- drug interaction and genotype may impact drug mechanism of action and result in moderate reduce efficacy discuss and educated Guanfacine 1 mg daily in am- reported not helping- Qelbree- Moderate gene interaction- serum levls may be too low and lower doses may be needed Straterra- significant gene and drug interaction- serum levels too high and lower dose may be needed, CYP2D6 indicate increase side effects, but also greater symptom improvement with those find tx toleratable, potential gene interaction ADHD stimulates education Discuss with patient risk of misuse, abuse, and addiction before prescribing stimulant medicines. 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 Educate patients and their families on these serious risks, proper storage of the medicine, and proper disposal of any unused medicine. Educated patient will monitor Throughout treatment, regularly assess and monitor them for signs and symptoms of nonmedical use, addiction, and potential diversion, which may be evidenced by more frequent renewal. requests than warranted by the prescribed dosage. Random [facility] prescription reviewed local pharmacy in [place], no early refills on control substance educated on non-stimulate and stimulates - Plan: Send refill to [facility] need 30 days at a time r/t insurance Gene Sight discuss Follow up MIRELA and therapy scheduled- will make list of concerns for therapy and work on situational stressors, fears, and emotions in therapy educated on cannabis use as it can negatively impact mood, motivation, anxiety, sleep, focus/concentration /memory (vigilance, elasticity, processing and attention); can also contribute to development of psychosis. Cannabis/marijuana information: http_s://shaheed.nih.g ov/publications/janice gfacts/cannabis-mar ijuana http_s://www.Social Rewards.Safecare/cannabis- igw-cruckrpk-bdrrgg avinash-adhd/ http_s://www.maribel.o rg/Rxhaw-Ezdhch-Cde ness/Mental-Health- Conditions http_s://psychcentr Isotera.com/depression/t am-nfrqpsoyv-avkhzz ex-jj-nwbrlgyztc#tr eatments http__s://www.nimh. nih.gov/health/topi cs/empuyw-ixtics-uy dications http__s://www.maribel. org/Vqjjs-Qmoelj-Yj lness/Treatments/Me xiky-Mdgdrs-Ujciakm ions educated on all medications, benefits, side effects and risk, and educated on depression, anxiety, and ADHD, mood d/o and educated on compliance of medications, metabolic and movement d/o education appointment's, continue therapy discussion with patient about course of treatment and patient instructions. education on serotonin syndrome Discussed and educated pt regarding benzodiazepines are generally not intended for prolonged use and that use can cause tolerance, dependence, depression, and associated memory issues including dementias (this list is not exhaustive). Benzodiazepine use is generally not recommended concurrently with pain medications and/or other controlled substances educated on all medications, benefits, side effects and risk, and educated on depression, anxiety, and ADHD, mood d/o and educated on compliance of medications, metabolic and movement d/o education appointment is, continue therapy discussion with patient about course of treatment and patient instructions. education on serotonin syndrome SSRI/SNRI side effects discussed including but not limited to, gastric upset, nausea, vomiting, diarrhea and/or constipation, weight changes, sexual side effects including loss of libido, increased suicidal thoughts/behaviors in children and young adults, and serotonin syndrome. Second generation antipsychotics (SGAs) have metabolic syndrome issues with weight gain, increase in prolactin, increased waist circumference, increased lipids, and increased glucose. Thus routine monitoring of weight, metabolic labs, etc. is indicated. A general rank ordering of antipsychotics that have the greatest to the least risk of metabolic effects is olanzapine, quetiapine, risperidone, ziprasidone, and aripiprazole. However, weight gain can occur with all of these drugs and considerable variability exists among patients receiving the same drug regarding the risk of metabolic effects. Anti-psychotic agents not only increase the risk of metabolic disorder, they also increase the risk of CVA, akathisia, and movement disorders including EPS or tardive dyskinesia (more common with first generation antipsychotics) and more. 01/30/2025 Bipolar disorder with depression (ICD-10 - F31.9) Bipolar Disorder: Care Instructions material was published, Learning About Mood Disorders material was published, Learning About How to Get Help During a Mental Health Crisis material was published, Learning About Movement Disorders From Antipsychotic Medicines material was published 1. Anxiety hx Patient reports anxiety level with intrusive thoughts and fear of night and sleep, and being alone discuss making list of thoughts, goals, plans and place in action discuss activity for day sleep hygiene education continue therapy discuss and educated on all rx Vistaril 10 mg three time a day for anxiety- HX Vistaril reported 25 mg dose more on edge - therapy continue- discuss DBT/CBT therapy discuss IOP program discuss journaling, coping skills, and identify triggers insurance requires 30 days at a time with refills 2. OCD A. fluvoxamine to 100mg. - anxiety and OCD- helping B. Monitor medication response. Encourage suicide hotline (988) use if needed.. advised when to seek emergency services. 3. Bipolar Disorder educated on therapy and CBT/DBT. ED- will work on situational stressors and fears in therapy Educated on proper use light box and not to stay in basement in day and come upstairs in day and open curtains, and outside help depression - lithium and Depakote for manic and depression - reported tolerating well and helping mood. Continue Depakote 500 mg BID lithium 150 mg twice a day hx r/t eduardo s/s at once a day and improved and monitor tremors in hands - labs 10/28 [place] 0.3 Depakote 33.6 Discuss Gene sight and Invega for Bipolar to control symptoms - Invega 3 mg daily continue discuss and educated on Invega injections for near future- Risk- Depakote can cause major congenital malformations incl. neural tube defects, decr. IQ scores, neurodevelopmental disorders after in utero exposure; contraindicated for migraine prophylaxis use in and women of reproductive potential w/o effective contraception; should not be used for epilepsy or bipolar disorder use in and women planning to become unless other tx options have failed or are unacceptable; women should use effective contraception during tx plan to taper off [place] r/t tremors - educated on labs for [place] and Depakote level.- [facility] . Follow up MIRELA and therapy scheduled- will make list of concerns for therapy and work on situational stressors, fears, and emotions in therapy labs completed 09/30 Gene sight reviewed and Abilify may need to be decrease in future - patient reported been working well Tubal 05/30/24- 3. Insomnia - Reports sleep apnea -no CPAP presently not using- plan on getting new CPAP- PCP ordered- still waiting on CPAP 11/13/24 - Plan: a.. sleep hygiene b. Continue melatonin 30 min before bed. c. melatonin 5-10 mg OTC d. Monitor sleep quality. discuss sleep hygeine habits 4. Suicidal Ideation- stable - Reports no passive suicidal thoughts - Denies plan/intent. a. Close monitoring. b. Encourage 988/911 hotline use if needed. c. Follow up MIRELA and seeing therapist e. advised to go to the emergency room if thoughts get worse or unmanageable. 5. OCD- thoughts and behaviors fluvoxamine to 100mg. 6.ADHD Comination hx since childhood and rx at childhood and adult LIDIA-AE 2 TEST Reviewed test results are congruent for ADHD combination hx Wellbutrin 300 mg dose - SI and eduardo discuss and educated on non-stimulates and stimualtes reviewed Gene sight - Vyvanse, Dextroamphetamine, and Adderall has no proven genetic markers Focalin and Concerta moderate gene- drug interaction and genotype may impact drug mechanism of action and result in moderate reduce efficacy discuss and educated Guanfacine 1 mg daily in am- reported wants to restart at 1 mg dose since 2 mg dose caused dry mouth- Qelbree- Moderate gene interaction- serum levls may be too low and lower doses may be needed Straterra- significant gene and drug interaction- serum levels too high and lower dose may be needed, CYP2D6 indicate increase side effects, but also greater symptom improvement with those find tx toleratable, potential gene interaction ADHD stimulates education Discuss with patient risk of misuse, abuse, and addiction before prescribing stimulant medicines. 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 Educate patients and their families on these serious risks, proper storage of the medicine, and proper disposal of any unused medicine. Educated patient will monitor Throughout treatment, regularly assess and monitor them for signs and symptoms of nonmedical use, addiction, and potential diversion, which may be evidenced by more frequent renewal. requests than warranted by the prescribed dosage. Random [facility] prescription reviewed local pharmacy in [facility], no early refills on control substance educated on non-stimulate and stimulates - Plan: Send refill to [facility] need 30 days at a time r/t insurance Gene Sight discuss Follow up MIRELA and therapy scheduled- will make list of concerns for therapy and work on situational stressors, fears, and emotions in therapy educated on cannabis use as it can negatively impact mood, motivation, anxiety, sleep, focus/concentration /memory (vigilance, elasticity, processing and attention); can also contribute to development of psychosis. Cannabis/marijuana information: http_s://shaheed.nih.g ov/publications/janice gfacts/cannabis-mar ijuana http_s://www.Social Rewards.Safecare/cannabis- pfl-grlnszls-trfxkc avinash-adhd/ http_s://www.maribel.o rg/Tqkda-Iwensb-Gjb ness/Mental-Health- Conditions http_s://psychcentr al.com/depression/t jv-xnhvqkvhd-pkvfat sy-rz-sycwaqyjjz#tr eatments http__s://www.nimh. nih.gov/health/topi cs/jmiinn-jcbquw-ln dications http__s://www.maribel. org/Rhxth-Pnmmfb-Cj lness/Treatments/Me kqgf-Saojry-Neuewyx ions educated on all medications, benefits, side effects and risk, and educated on depression, anxiety, and ADHD, mood d/o and educated on compliance of medications, metabolic and movement d/o education appointment's, continue therapy discussion with patient about course of treatment and patient instructions. education on serotonin syndrome Discussed and educated pt regarding benzodiazepines are generally not intended for prolonged use and that use can cause tolerance, dependence, depression, and associated memory issues including dementias (this list is not exhaustive). Benzodiazepine use is generally not recommended concurrently with pain medications and/or other controlled substances educated on all medications, benefits, side effects and risk, and educated on depression, anxiety, and ADHD, mood d/o and educated on compliance of medications, metabolic and movement d/o education appointment is, continue therapy discussion with patient about course of treatment and patient instructions. education on serotonin syndrome SSRI/SNRI side effects discussed including but not limited to, gastric upset, nausea, vomiting, diarrhea and/or constipation, weight changes, sexual side effects including loss of libido, increased suicidal thoughts/behaviors in children and young adults, and serotonin syndrome. Second generation antipsychotics (SGAs) have metabolic syndrome issues with weight gain, increase in prolactin, increased waist circumference, increased lipids, and increased glucose. Thus routine monitoring of weight, metabolic labs, etc. is indicated. A general rank ordering of antipsychotics that have the greatest to the least risk of metabolic effects is olanzapine, quetiapine, risperidone, ziprasidone, and aripiprazole. However, weight gain can occur with all of these drugs and considerable variability exists among patients receiving the same drug regarding the risk of metabolic effects. Anti-psychotic agents not only increase the risk of metabolic disorder, they also increase the risk of CVA, akathisia, and movement disorders including EPS or tardive dyskinesia (more common with first generation antipsychotics) and more. 10/06/2024 Bipolar disorder with depression (ICD-10 - F31.9) Bipolar Disorder: Care Instructions material was published, Learning About Mood Disorders material was published, Learning About How to Get Help During a Mental Health Crisis material was published, Learning About Movement Disorders From Antipsychotic Medicines material was published 1. Anxiety -a. Patient reports anxiety level with intrusive thoughts.- therapy b. discuss and educated on all rx Increase Vistaril 25 mg three time a day for anxiety- reported 10 mg dose not helping - therapy continue- discuss DBT/CBT therapy discuss IOP program discuss journaling, coping skills, and identify triggers insurance requires 30 days at a time with refills 2. OCD A. fluvoxamine to 100mg. - anxiety and OCD- B. Monitor medication response. C. Encourage suicide hotline (988) use if needed. D. advised when to seek emergency services. 3. Bipolar Disorder educated on therapy and CBT/DBT. EDMR- will work on situational stressors and fears in therapy Educated on proper use light box and not to stay in basement in day and come upstairs in day and open curtains, and outside help depression - lithium and Depakote for manic and depression - reported tolerating well and helping mood. Continue Depakote 500 mg BID lithium 150 mg twice a day hx r/t eduardo s/s at once a day and improved and monitor tremors in hands - labs 09/30 [place] 0.3 Depakote 33.6 Discuss Gene sight and Invega for Bipolar to control symptoms - Invega 3 mg daily continue discuss and educated on Invega injections for near future- pateint agreed plan to taper off [place] r/t tremors - educated on labs for [place] and Depakote level.- [facility] . Follow up MIRELA and therapy scheduled- will make list of concerns for therapy and work on situational stressors, fears, and emotions in therapy labs completed 09/30 Gene sight reviewed and Abilify may need to be decrease in future - patient reported been working well Tubal 05/30/24- 3. Insomnia - Reports sleep apnea -no CPAP presently not using- plan on getting new CPAP- PCP ordered - Plan: a.. sleep hygiene b. Continue melatonin 30min before bed. c. melatonin 3 mg OTC d. Monitor sleep quality. 4. Suicidal Ideation- stable - Reports no passive suicidal thoughts - Denies plan/intent. a. Close monitoring. b. Encourage 988/911 hotline use if needed. c. Follow up MIRELA and seeing therapist e. advised to go to the emergency room if thoughts get worse or unmanageable. 5. OCD- thoughts and behaviors fluvoxamine to 100mg. 6.ADHD Comination hx since childhood and rx at childhood and adult LIDIA-AE 2 TEST Reviewed test results are congruent for ADHD combination discuss and educated on non-stimulates and stimualtes reviewed Gene sight - Vyvanse, Dextroamphetamine, and Adderall has no proven genetic markers Focalin and Concerta moderate gene- drug interaction and genotype may impact drug mechanism of action and result in moderate reduce efficacy discuss and educated ] Guanfacine 1 mg daily in am Qelbree- Moderate gene interaction- serum levls may be too low and lower doses may be needed Straterra- significant gene and drug interaction- serum levels too high and lower dose may be needed, CYP2D6 indicate increase side effects, but also greater symptom improvement with those find tx toleratable, potential gene interaction ADHD stimulates education Discuss with patient risk of misuse, abuse, and addiction before prescribing stimulant medicines. 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 Educate patients and their families on these serious risks, proper storage of the medicine, and proper disposal of any unused medicine. Educated patient will monitor Throughout treatment, regularly assess and monitor them for signs and symptoms of nonmedical use, addiction, and potential diversion, which may be evidenced by more frequent renewal. requests than warranted by the prescribed dosage. [facility] prescription reviewed local pharmacy in [facility], no early refills on control substance educated on non-stimulate and stimulates - Plan: Send refill to [facility] need 30 days at a time r/t insurance Gene Sight discuss Follow up MIRELA and therapy scheduled- will make list of concerns for therapy and work on situational stressors, fears, and emotions in therapy educated on cannabis use as it can negatively impact mood, motivation, anxiety, sleep, focus/concentration /memory (vigilance, elasticity, processing and attention); can also contribute to development of psychosis. Cannabis/marijuana information: http_s://shaheed.nih.g ov/publications/janice gfacts/cannabis-mar ijuana http_s://www.[employer].Safecare/cannabis- oux-nmjkcvgl-othqdn avinash-adhd/ http_s://www.maribel.o rg/Tsuyp-Iwezir-Nni ness/Mental-Health- Conditions http_s://psychcentr al.com/depression/t ar-pmlmauwva-lmbdrc zv-hk-xgvotkckwy#tr eatments http__s://www.nimh. nih.gov/health/topi cs/qhsqpk-znxbft-cc dications http__s://www.maribel. org/Ccxlm-Hllkvz-Nw lness/Treatments/Me jgid-Ireplm-Hmdzizw ions educated on all medications, benefits, side effects and risk, and educated on depression, anxiety, and ADHD, mood d/o and educated on compliance of medications, metabolic and movement d/o education appointment's, continue therapy discussion with patient about course of treatment and patient instructions. education on serotonin syndrome Discussed and educated pt regarding benzodiazepines are generally not intended for prolonged use and that use can cause tolerance, dependence, depression, and associated memory issues including dementias (this list is not exhaustive). Benzodiazepine use is generally not recommended concurrently with pain medications and/or other controlled substances educated on all medications, benefits, side effects and risk, and educated on depression, anxiety, and ADHD, mood d/o and educated on compliance of medications, metabolic and movement d/o education appointment is, continue therapy discussion with patient about course of treatment and patient instructions. education on serotonin syndrome SSRI/SNRI side effects discussed including but not limited to, gastric upset, nausea, vomiting, diarrhea and/or constipation, weight changes, sexual side effects including loss of libido, increased suicidal thoughts/behaviors in children and young adults, and serotonin syndrome. Second generation antipsychotics (SGAs) have metabolic syndrome issues with weight gain, increase in prolactin, increased waist circumference, increased lipids, and increased glucose. Thus routine monitoring of weight, metabolic labs, etc. is indicated. A general rank ordering of antipsychotics that have the greatest to the least risk of metabolic effects is olanzapine, quetiapine, risperidone, ziprasidone, and aripiprazole. However, weight gain can occur with all of these drugs and considerable variability exists among patients receiving the same drug regarding the risk of metabolic effects. Anti-psychotic agents not only increase the risk of metabolic disorder, they also increase the risk of CVA, akathisia, and movement disorders including EPS or tardive dyskinesia (more common with first generation antipsychotics) and more. 11/13/2024 Encounter for screening for depression (ICD-10 - Z13.31) 1. Anxiety -a. Patient reports anxiety level with intrusive thoughts and fear of night and sleep, and being alone discuss making list of thoughts, goals, plans and place in action discuss activity for day sleep hygiene education continue therapy . discuss and educated on all rx Decrease Vistaril 10 mg three time a day for anxiety- reported 25 mg dose more on edge - therapy continue- discuss DBT/CBT therapy discuss IOP program discuss journaling, coping skills, and identify triggers insurance requires 30 days at a time with refills 2. OCD A. fluvoxamine to 100mg. - anxiety and OCD- helping B. Monitor medication response. Encourage suicide hotline (555) use if needed.. advised when to seek emergency services. 3. Bipolar Disorder educated on therapy and CBT/DBT. EDMR- will work on situational stressors and fears in therapy Educated on proper use light box and not to stay in basement in day and come upstairs in day and open curtains, and outside help depression - lithium and Depakote for manic and depression - reported tolerating well and helping mood. Continue Depakote 500 mg BID lithium 150 mg twice a day hx r/t eduardo s/s at once a day and improved and monitor tremors in hands - labs 09/30 [place] 0.3 Depakote 33.6 Discuss Gene sight and Invega for Bipolar to control symptoms - Invega 3 mg daily continue discuss and educated on Invega injections for near future- Risk- Depakote can cause major congenital malformations incl. neural tube defects, decr. IQ scores, neurodevelopmental disorders after in utero exposure; contraindicated for migraine prophylaxis use in and women of reproductive potential w/o effective contraception; should not be used for epilepsy or bipolar disorder use in and women planning to become unless other tx options have failed or are unacceptable; women should use effective contraception during tx plan to taper off [place] r/t tremors - educated on labs for [place] and Depakote level.- [facility] . Follow up MIRELA and therapy scheduled- will make list of concerns for therapy and work on situational stressors, fears, and emotions in therapy labs completed 09/30 Gene sight reviewed and Abilify may need to be decrease in future - patient reported been working well Tubal 05/30/24- 3. Insomnia - Reports sleep apnea -no CPAP presently not using- plan on getting new CPAP- PCP ordered- still waiting on CPAP 11/13/24 - Plan: a.. sleep hygiene b. Continue melatonin 30 min before bed. c. melatonin 5-10 mg OTC d. Monitor sleep quality. discuss sleep hygeine habits 4. Suicidal Ideation- stable - Reports no passive suicidal thoughts - Denies plan/intent. a. Close monitoring. b. Encourage 680/411 hotline use if needed. c. Follow up MIRELA and seeing therapist e. advised to go to the emergency room if thoughts get worse or unmanageable. 5. OCD- thoughts and behaviors fluvoxamine to 100mg. 6.ADHD Comination hx since childhood and rx at childhood and adult LIDIA-AE 2 TEST Reviewed test results are congruent for ADHD combination hx Wellbutrin 300 mg dose - SI and eduardo discuss and educated on non-stimulates and stimualtes reviewed Gene sight - Vyvanse, Dextroamphetamine, and Adderall has no proven genetic markers Focalin and Concerta moderate gene- drug interaction and genotype may impact drug mechanism of action and result in moderate reduce efficacy discuss and educated Guanfacine 1 mg daily in am- reported not helping- Qelbree- Moderate gene interaction- serum levls may be too low and lower doses may be needed Straterra- significant gene and drug interaction- serum levels too high and lower dose may be needed, CYP2D6 indicate increase side effects, but also greater symptom improvement with those find tx toleratable, potential gene interaction ADHD stimulates education Discuss with patient risk of misuse, abuse, and addiction before prescribing stimulant medicines. 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 Educate patients and their families on these serious risks, proper storage of the medicine, and proper disposal of any unused medicine. Educated patient will monitor Throughout treatment, regularly assess and monitor them for signs and symptoms of nonmedical use, addiction, and potential diversion, which may be evidenced by more frequent renewal. requests than warranted by the prescribed dosage. [facility] prescription reviewed local pharmacy in [place], no early refills on control substance educated on non-stimulate and stimulates - Plan: Send refill to [facility] need 30 days at a time r/t insurance Gene Sight discuss Follow up MIRELA and therapy scheduled- will make list of concerns for therapy and work on situational stressors, fears, and emotions in therapy educated on cannabis use as it can negatively impact mood, motivation, anxiety, sleep, focus/concentration /memory (vigilance, elasticity, processing and attention); can also contribute to development of psychosis. Cannabis/marijuana information: http_s://shaheed.nih.g ov/publications/janice gfacts/cannabis-cara cheng http_s://www.Weight Wins/cannabis- rcu-fyafksld-yybpgp avinash-adhd/ http_s://www.maribel.o /Vgukt-Qffmkl-[place] ness/Mental-Health- Conditions http_s://psychcentr Isotera.com/depression/t hl-iigludown-nbtlrr ao-vp-urcygivnum#tr eatments http__s://www.nimh. nih.gov/health/topi cs/memrue-zmcrmd-iy dications http__s://www.maribel. org/Llmti-Bhghzn-Dw lness/Treatments/Me lvto-Ypbrha-Ajyfbph ions educated on all medications, benefits, side effects and risk, and educated on depression, anxiety, and ADHD, mood d/o and educated on compliance of medications, metabolic and movement d/o education appointment's, continue therapy discussion with patient about course of treatment and patient instructions. education on serotonin syndrome Discussed and educated pt regarding benzodiazepines are generally not intended for prolonged use and that use can cause tolerance, dependence, depression, and associated memory issues including dementias (this list is not exhaustive). Benzodiazepine use is generally not recommended concurrently with pain medications and/or other controlled substances educated on all medications, benefits, side effects and risk, and educated on depression, anxiety, and ADHD, mood d/o and educated on compliance of medications, metabolic and movement d/o education appointment is, continue therapy discussion with patient about course of treatment and patient instructions. education on serotonin syndrome SSRI/SNRI side effects discussed including but not limited to, gastric upset, nausea, vomiting, diarrhea and/or constipation, weight changes, sexual side effects including loss of libido, increased suicidal thoughts/behaviors in children and young adults, and serotonin syndrome. Second generation antipsychotics (SGAs) have metabolic syndrome issues with weight gain, increase in prolactin, increased waist circumference, increased lipids, and increased glucose. Thus routine monitoring of weight, metabolic labs, etc. is indicated. A general rank ordering of antipsychotics that have the greatest to the least risk of metabolic effects is olanzapine, quetiapine, risperidone, ziprasidone, and aripiprazole. However, weight gain can occur with all of these drugs and considerable variability exists among patients receiving the same drug regarding the risk of metabolic effects. Anti-psychotic agents not only increase the risk of metabolic disorder, they also increase the risk of CVA, akathisia, and movement disorders including EPS or tardive dyskinesia (more common with first generation antipsychotics) and more. 01/30/2025 Negative depression screening (ICD-10 - Z13.31) 1. Anxiety hx Patient reports anxiety level with intrusive thoughts and fear of night and sleep, and being alone discuss making list of thoughts, goals, plans and place in action discuss activity for day sleep hygiene education continue therapy discuss and educated on all rx Vistaril 10 mg three time a day for anxiety- HX Vistaril reported 25 mg dose more on edge - therapy continue- discuss DBT/CBT therapy discuss IOP program discuss journaling, coping skills, and identify triggers insurance requires 30 days at a time with refills 2. OCD A. fluvoxamine to 100mg. - anxiety and OCD- helping B. Monitor medication response. Encourage suicide hotline (311) use if needed.. advised when to seek emergency services. 3. Bipolar Disorder educated on therapy and CBT/DBT. EDMR- will work on situational stressors and fears in therapy Educated on proper use light box and not to stay in basement in day and come upstairs in day and open curtains, and outside help depression - lithium and Depakote for manic and depression - reported tolerating well and helping mood. Continue Depakote 500 mg BID lithium 150 mg twice a day hx r/t eduardo s/s at once a day and improved and monitor tremors in hands - labs 10/28 [place] 0.3 Depakote 33.6 Discuss Gene sight and Invega for Bipolar to control symptoms - Invega 3 mg daily continue discuss and educated on Invega injections for near future- Risk- Depakote can cause major congenital malformations incl. neural tube defects, decr. IQ scores, neurodevelopmental disorders after in utero exposure; contraindicated for migraine prophylaxis use in and women of reproductive potential w/o effective contraception; should not be used for epilepsy or bipolar disorder use in and women planning to become unless other tx options have failed or are unacceptable; women should use effective contraception during tx plan to taper off [place] r/t tremors - educated on labs for [place] and Depakote level.- [facility] . Follow up MIRELA and therapy scheduled- will make list of concerns for therapy and work on situational stressors, fears, and emotions in therapy labs completed 09/30 Gene sight reviewed and Abilify may need to be decrease in future - patient reported been working well Tubal 05/30/24- 3. Insomnia - Reports sleep apnea -no CPAP presently not using- plan on getting new CPAP- PCP ordered- still waiting on CPAP 11/13/24 - Plan: a.. sleep hygiene b. Continue melatonin 30 min before bed. c. melatonin 5-10 mg OTC d. Monitor sleep quality. discuss sleep hygeine habits 4. Suicidal Ideation- stable - Reports no passive suicidal thoughts - Denies plan/intent. a. Close monitoring. b. Encourage [phone] hotline use if needed. c. Follow up MIRELA and seeing therapist e. advised to go to the emergency room if thoughts get worse or unmanageable. 5. OCD- thoughts and behaviors fluvoxamine to 100mg. 6.ADHD Comination hx since childhood and rx at childhood and adult LIDIA-AE 2 TEST Reviewed test results are congruent for ADHD combination hx Wellbutrin 300 mg dose - SI and eduardo discuss and educated on non-stimulates and stimualtes reviewed Gene sight - Vyvanse, Dextroamphetamine, and Adderall has no proven genetic markers Focalin and Concerta moderate gene- drug interaction and genotype may impact drug mechanism of action and result in moderate reduce efficacy discuss and educated Guanfacine 1 mg daily in am- reported wants to restart at 1 mg dose since 2 mg dose caused dry mouth- Qelbree- Moderate gene interaction- serum levls may be too low and lower doses may be needed Straterra- significant gene and drug interaction- serum levels too high and lower dose may be needed, CYP2D6 indicate increase side effects, but also greater symptom improvement with those find tx toleratable, potential gene interaction ADHD stimulates education Discuss with patient risk of misuse, abuse, and addiction before prescribing stimulant medicines. 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 Educate patients and their families on these serious risks, proper storage of the medicine, and proper disposal of any unused medicine. Educated patient will monitor Throughout treatment, regularly assess and monitor them for signs and symptoms of nonmedical use, addiction, and potential diversion, which may be evidenced by more frequent renewal. requests than warranted by the prescribed dosage. Random [facility] [place] prescription reviewed local pharmacy in [place], no early refills on control substance educated on non-stimulate and stimulates - Plan: Send refill to [facility] need 30 days at a time r/t insurance Gene Sight discuss Follow up MIRELA and therapy scheduled- will make list of concerns for therapy and work on situational stressors, fears, and emotions in therapy educated on cannabis use as it can negatively impact mood, motivation, anxiety, sleep, focus/concentration /memory (vigilance, elasticity, processing and attention); can also contribute to development of psychosis. Cannabis/marijuana information: http_s://shaheed.nih.g ov/publications/janice gfacts/cannabis-mar ijuana http_s://www.Weight Wins/cannabis- tfd-qxnuhrer-ltgnwk avinash-adhd/ http_s://www.maribel.o /Bwbqb-Pzpyue-Nmx ness/Mental-Health- Conditions http_s://psych5 CUPS and some sugarr [facility]/depression/t vp-hsmrmnqfl-ccqlgc qu-jo-kfzoepjhsa#tr eatments http__s://www.nimh. nih.gov/health/topi cs/tbczyr-cvckzl-qf dications http__s://www.maribel. org/Dyfhm-Yuzbtj-Ga lness/Treatments/Me eatm-Mpbywl-Cgqodhi ions educated on all medications, benefits, side effects and risk, and educated on depression, anxiety, and ADHD, mood d/o and educated on compliance of medications, metabolic and movement d/o education appointment's, continue therapy discussion with patient about course of treatment and patient instructions. education on serotonin syndrome Discussed and educated pt regarding benzodiazepines are generally not intended for prolonged use and that use can cause tolerance, dependence, depression, and associated memory issues including dementias (this list is not exhaustive). Benzodiazepine use is generally not recommended concurrently with pain medications and/or other controlled substances educated on all medications, benefits, side effects and risk, and educated on depression, anxiety, and ADHD, mood d/o and educated on compliance of medications, metabolic and movement d/o education appointment is, continue therapy discussion with patient about course of treatment and patient instructions. education on serotonin syndrome SSRI/SNRI side effects discussed including but not limited to, gastric upset, nausea, vomiting, diarrhea and/or constipation, weight changes, sexual side effects including loss of libido, increased suicidal thoughts/behaviors in children and young adults, and serotonin syndrome. Second generation antipsychotics (SGAs) have metabolic syndrome issues with weight gain, increase in prolactin, increased waist circumference, increased lipids, and increased glucose. Thus routine monitoring of weight, metabolic labs, etc. is indicated. A general rank ordering of antipsychotics that have the greatest to the least risk of metabolic effects is olanzapine, quetiapine, risperidone, ziprasidone, and aripiprazole. However, weight gain can occur with all of these drugs and considerable variability exists among patients receiving the same drug regarding the risk of metabolic effects. Anti-psychotic agents not only increase the risk of metabolic disorder, they also increase the risk of CVA, akathisia, and movement disorders including EPS or tardive dyskinesia (more common with first generation antipsychotics) and more. 02/22/2024 Other Learning About Depression Screening material was printed, [place] Carbonate Oral Tablet (LITHIUM - ORAL) material was published, Lumateperone Oral Capsule (LUMATEPERONE - ORAL) material was published, Trazodone Oral Tablet (TRAZODONE - ORAL) material was published Bipolar I mix episode- reviewed rx hx per patient list discuss and educated on Caplyta will add Caplyta 42 mg daily samples given # 28 copay card given presently on [place] 150 mg twice a day HX [place] toxicty 2022 obtain labs recently done Anxiety - educated on anxiety and therapy hx Ativan - stopped, Visatril- depression took rx x1 no control substance Insomnia r/t mental d/o- Tazodone presently taking 50 mg nightly not helping Add Melatonin 3-5 mg OTC Educated on rx OCD - continue therapy http_s://www.nimh.n ih.gov/health/topic s/lhdagr-lulenx-ztt ications http_s://www.maribel.o rg/Uafre-Qbcwsq-Gfc ness/Treatments/Men bkm-Cwzlfg-Rdsqxxay ons Recommend decrease/stop cannabis use as it may be negatively impacting mood, motivation, anxiety, sleep, focus; can also contribute to development of psychosis Patient educated on all medications including potential benefits, side effects, risks. Educated on proper dosing schedule and importance of compliance educated on all medications, benefits, side effects and risk, and educated on depression, anxiety, and ADHD, mood d/o and educated on compliance of medications, metabolic and movement d/o education appointment is, continue therapy discussion with patient about course of treatment and patient instructions. education on serotonin syndrome SSRI/SNRI side effects discussed including but not limited to, gastric upset, nausea, vomiting, diarrhea and/or constipation, weight changes, sexual side effects including loss of libido, increased suicidal thoughts/behaviors in children and young adults, and serotonin syndrome. Second generation antipsychotics (SGAs) have metabolic syndrome issues with weight gain, increase in prolactin, increased waist circumference, increased lipids, and increased glucose. Thus routine monitoring of weight, metabolic labs, etc. is indicated. A general rank ordering of antipsychotics that have the greatest to the least risk of metabolic effects is olanzapine, quetiapine, risperidone, ziprasidone, and aripiprazole. However, weight gain can occur with all of these drugs and considerable variability exists among patients receiving the same drug regarding the risk of metabolic effects. Anti-psychotic agents not only increase the risk of metabolic disorder, they also increase the risk of CVA, akathisia, and movement disorders including EPS or tardive dyskinesia (more common with first generation antipsychotics) and more. Medication Management and Follow-Up - Plan: - Schedule follow-up appointments every 1-3 months to monitor the patient's response to the medication regimen. - Reinforce the importance of avoiding recreational drug use due to potential neurotoxicity and interactions with prescribed medications. [place] education [place] use reviewed. Risks include risks of toxicity, arrhythmias, cognitive impairment, changes in muscle coordination, weight gain, thyroid and parathyroid changes, polydipsia and polyuria, alopecia, tremor and teratogenicity ( defects). Recommend avoid in females (use contraception consistently). Routine lab monitoring may be required. Patient consented to treatment. Indications: acute eduardo (euphoric eduardo), bipolar prophylaxis, bipolar depression treatment or augmentation, unipolar depression as augmentation with antidepressants Average dose = I,500 mg/day, target serum level 0.8 [place] is known to reduce risk of suicide. 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,000 Renal: chronic renal insufficiency (after 10-20 years), acute renal failure, polyuria occurs in 50-70% [lithium antagonizes anti-diuretic hormone (ADH)], diabetes insipidus in 10% (treat with amiloride) Drug-drug interactions: increase in lithium: NSAIDs, GRZEGORZ inhibitors, angiotensin II antagonists 02/29/2024 Other [place] Carbona te Extended Release Oral Tablet (LITHIUM CONTROLLED-RELEASE - ORAL) material was published, Aripiprazole Oral Tablet 10 mg (ARIPIPRAZOLE - ORAL) material was published, Trazodone Oral Tablet (TRAZODONE - ORAL) material was published, Fluvoxamine Oral Tablet (FLUVOXAMINE - ORAL) material was published, Clomipramine Oral Capsule (CLOMIPRAMINE - ORAL) material was published mixed Bipolar- patient had a god response to Abilify 20 mg 2013 Will add Abilify 10 mg daily for Bipolar - educated on rx [place] 450 mg twice a day Continue therapy denies SI/HI no plans or intent educated on 988 and 911 go to nearest ER if have passive/active SI or plan or intent hx [place] toxicity at higher doses [place] education [place] use reviewed. Risks include risks of toxicity, arrhythmias, cognitive impairment, changes in muscle coordination, weight gain, thyroid and parathyroid changes, polydipsia and polyuria, alopecia, tremor and teratogenicity ( defects). Recommend avoid in females (use contraception consistently). Routine lab monitoring may be required. Patient consented to treatment. Indications: acute eduardo (euphoric eduardo), bipolar prophylaxis, bipolar depression treatment or augmentation, unipolar depression as augmentation with antidepressants Average dose = I,500 mg/day, target serum level 0.8 [place] is known to reduce risk of suicide. 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,000 Renal: chronic renal insufficiency (after 10-20 years), acute renal failure, polyuria occurs in 50-70% [lithium antagonizes anti-diuretic hormone (ADH)], diabetes insipidus in 10% (treat with amiloride) Drug-drug interactions: increase in lithium: NSAIDs, GRZEGORZ inhibitors, angiotensin II antagonists patient stopped Caplyta (muscle weaknes after 3 days and seenn in [facility]) Anxiety- monitor in therapy primary Insomnia - Trazodone 50 mg at bedtime OCD- Patient had cardiac hx and 3 surgeries currently on Clomipramine 75 MG daily and will slowly decrease to stopping rx will decrease to Clomipramine 50 mg daily for next month then to 25 mg for a month on next visit discuss and educated on Fluxoxamine 50 mg daily for OCD Monitor for SI http_s://www.[facility].n ih.gov/health/topic s/kiltsd-bdqdzz-ary ications http_s://www.maribel.o rg/Gxkby-Jqjomx-Nus ness/Treatments/Men bld-Iteebd-Fhoopvzb ons discuss and educated pharmacogenomic panel- patient will have test next visit Patient educated on all medications including potential benefits, side effects, risks. Educated on proper dosing schedule and importance of compliance educated on all medications, benefits, side effects and risk, and educated on depression, anxiety, and ADHD, mood d/o and educated on compliance of medications, metabolic and movement d/o education appointment is, continue therapy discussion with patient about course of treatment and patient instructions. education on serotonin syndrome SSRI/SNRI side effects discussed including but not limited to, gastric upset, nausea, vomiting, diarrhea and/or constipation, weight changes, sexual side effects including loss of libido, increased suicidal thoughts/behaviors in children and young adults, and serotonin syndrome. Second generation antipsychotics (SGAs) have metabolic syndrome issues with weight gain, increase in prolactin, increased waist circumference, increased lipids, and increased glucose. Thus routine monitoring of weight, metabolic labs, etc. is indicated. A general rank ordering of antipsychotics that have the greatest to the least risk of metabolic effects is olanzapine, quetiapine, risperidone, ziprasidone, and aripiprazole. However, weight gain can occur with all of these drugs and considerable variability exists among patients receiving the same drug regarding the risk of metabolic effects. Anti-psychotic agents not only increase the risk of metabolic disorder, they also increase the risk of CVA, akathisia, and movement disorders including EPS or tardive dyskinesia (more common with first generation antipsychotics) and more. Medication Management and Follow-Up - Plan: - Schedule follow-up appointments every 1-3 months to monitor the patient's response to the medication regimen. - Reinforce the importance of avoiding recreational drug use due to potential neurotoxicity and interactions with prescribed medications. 03/13/2024 Other Aripiprazole Or al Tablet 15 mg (ARIPIPRAZOLE - ORAL) material was published, [place] Carbonate Extended Release Oral Tablet (LITHIUM CONTROLLED-RELEASE - ORAL) material was published, Trazodone Oral Tablet (TRAZODONE - ORAL) material was published, Fluvoxamine Oral Tablet (FLUVOXAMINE - ORAL) material was published, Clomipramine Oral Capsule (CLOMIPRAMINE - ORAL) material was published mixed Bipolar- patient had a good response to Abilify 20 mg 2013 Increase Abilify 15 mg daily for Bipolar eduardo - educated on rx Decrease [place] 300 mg twice a day- seen neuropsychiatry- r/o hand tremors to [place] Continue therapy denies SI/HI no plans or intent educated on 988 and 911 go to nearest ER if have passive/active SI or plan or intent hx [place] toxicity at higher doses [place] education [place] use reviewed. Risks include risks of toxicity, arrhythmias, cognitive impairment, changes in muscle coordination, weight gain, thyroid and parathyroid changes, polydipsia and polyuria, alopecia, tremor and teratogenicity ( defects). Recommend avoid in females (use contraception consistently). Routine lab monitoring may be required. Patient consented to treatment. Indications: acute eduardo (euphoric eduardo), bipolar prophylaxis, bipolar depression treatment or augmentation, unipolar depression as augmentation with antidepressants Average dose = I,500 mg/day, target serum level 0.8 [place] is known to reduce risk of suicide. 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,000 Renal: chronic renal insufficiency (after 10-20 years), acute renal failure, polyuria occurs in 50-70% [lithium antagonizes anti-diuretic hormone (ADH)], diabetes insipidus in 10% (treat with amiloride) Drug-drug interactions: increase in lithium: NSAIDs, GRZEGORZ inhibitors, angiotensin II antagonists Anxiety- monitor in therapy primary Insomnia - Trazodone 50 mg at bedtime OCD- Patient had cardiac hx and 3 surgeries decrease Clomipramine 25 mg for a month plan to stop in a month discuss and educated on increase Fluxoxamine 100 mg daily for OCD- tolerating well no s/e Monitor for SI http_s://www.[facility].n ih.gov/health/topic s/vcnspc-inmpta-bbi ications http_s://www.maribel.o rg/Zuwqb-Zuhjme-Cdj ness/Treatments/Men gjv-Pylhdh-Fhpsknrx ons discuss and educated pharmacogenomic panel- patient will have test next visit Patient educated on all medications including potential benefits, side effects, risks. Educated on proper dosing schedule and importance of compliance educated on all medications, benefits, side effects and risk, and educated on depression, anxiety, and ADHD, mood d/o and educated on compliance of medications, metabolic and movement d/o education appointment is, continue therapy discussion with patient about course of treatment and patient instructions. education on serotonin syndrome SSRI/SNRI side effects discussed including but not limited to, gastric upset, nausea, vomiting, diarrhea and/or constipation, weight changes, sexual side effects including loss of libido, increased suicidal thoughts/behaviors in children and young adults, and serotonin syndrome. Second generation antipsychotics (SGAs) have metabolic syndrome issues with weight gain, increase in prolactin, increased waist circumference, increased lipids, and increased glucose. Thus routine monitoring of weight, metabolic labs, etc. is indicated. A general rank ordering of antipsychotics that have the greatest to the least risk of metabolic effects is olanzapine, quetiapine, risperidone, ziprasidone, and aripiprazole. However, weight gain can occur with all of these drugs and considerable variability exists among patients receiving the same drug regarding the risk of metabolic effects. Anti-psychotic agents not only increase the risk of metabolic disorder, they also increase the risk of CVA, akathisia, and movement disorders including EPS or tardive dyskinesia (more common with first generation antipsychotics) and more. Medication Management and Follow-Up - Plan: - Schedule follow-up appointments every 1-3 months to monitor the patient's response to the medication regimen. - Reinforce the importance of avoiding recreational drug use due to potential neurotoxicity and interactions with prescribed medications. 04/10/2024 Other [place] Carbona te Extended Release Oral Tablet (LITHIUM CONTROLLED-RELEASE - ORAL) material was published, Valproate Extended Release Oral Tablet (DIVALPROEX SODIUM EXTENDED-RELEASE - ORAL) material was published 1. Bipolar Disorder - Manic Episode: discuss Depakote for eduardo and educated on rx will add Depakote ER 250 MG TWICE a day for Bipolar eduardo - educated on labs with Depakote and BCP presently on planning on tubal plan to titrate off [place] next visit Risk- Depakote can cause major congenital malformations incl. neural tube defects, decr. IQ scores, neurodevelopmental disorders after in utero exposure; contraindicated for migraine prophylaxis use in and women of reproductive potential w/o effective contraception; should not be used for epilepsy or bipolar disorder use in and women planning to become unless other tx options have failed or are unacceptable; women should use effective contraception during tx - [place] dose was reduced to 300 mg twice daily due to worsening tremor; however, this has led to a manic episode continue over last 6 weeks aripiprazole 20 mg at bedtime recently increased -monitor lithium level - Encourage the patient to avoid excessive caffeine intake, such as energy drinks, as this may exacerbate eduardo. - Reevaluate the need for medication adjustments if manic symptoms persist or worsen. 3. Depression: - Continue fluvoxamine 100 mg at bedtime 4. Anxiety: - aripiprazole 20 mg at bedtime as prescribed for anxiety management. 5. Insomnia: - Continue estazolam, melatonin, and trazodone 50 mg as prescribed for sleep management. - Monitor sleep patterns and adjust medications if needed. hx heart issues rx hx Vraylar, Abilify, Caplyta (muscle weakness), [place] (tremors) Fluvoxamine, Clomipramine, estazolam, melatonin, and trazodone 50 mg 6. Impulsive Spending: - Encourage the patient to develop strategies for managing impulsive spending, such as seeking support from a therapist or financial counselor. - Monitor the impact of lithium on impulsive behavior and adjust the dose if necessary. labs reviewd 01/27 scanned into chart Follow-up: 04/24/2024 Other Bipolar Disorde r: Care Instructions material was published, Learning About How to Get Help During a Mental Health Crisis material was published, Learning About Mood Disorders material was published, Learning About Movement Disorders From Antipsychotic Medicines material was published, Bipolar Disorder: Care Instructions material was published, Learning About Movement Disorders From Antipsychotic Medicines material was published, Learning About Mood Disorders material was published, Learning About How to Get Help During a Mental Health Crisis material was published, Bipolar Disorder: Care Instructions material was published, Learning About Movement Disorders From Antipsychotic Medicines material was published, Learning About How to Get Help During a Mental Health Crisis material was published, Learning About Mood Disorders material was published 1. Bipolar Disorder - discuss Depakote for eduardo and educated on rx will increase Depakote ER 500 MG TWICE a day for Bipolar eduardo - improved on Depakote since 04/10/24 (out of eduardo) educated on labs with Depakote and BCP presently on planning on tubal plan to titrate off [place] in near future Risk- Depakote can cause major congenital malformations incl. neural tube defects, decr. IQ scores, neurodevelopmental disorders after in utero exposure; contraindicated for migraine prophylaxis use in and women of reproductive potential w/o effective contraception; should not be used for epilepsy or bipolar disorder use in and women planning to become unless other tx options have failed or are unacceptable; women should use effective contraception during tx - [place] will decrease dose to 150 mg twice daily aripiprazole 20 mg at bedtime -monitor lithium level and Depakote levels - Encourage the patient to avoid excessive caffeine intake, such as energy drinks, as this may exacerbate eduardo. - Reevaluate the need for medication adjustments if manic symptoms persist or worsen. 3. Depression: - Continue fluvoxamine 100 mg at bedtime 4. Anxiety: - aripiprazole 20 mg at bedtime as prescribed for anxiety management. 5. Insomnia: - Continue estazolam, melatonin, and trazodone 50 mg as prescribed for sleep management. - Monitor sleep patterns and adjust medications if needed. hx heart issues rx hx Vraylar, Abilify, Caplyta (muscle weakness), [place] (tremors) Fluvoxamine, Clomipramine, estazolam, melatonin, and trazodone 50 mg 6. Impulsive Spending: with eduardo - improved with Depakote - Encourage the patient to develop strategies for managing impulsive spending, such as seeking support from a therapist or financial counselor. - Monitor the impact of lithium and DepakoteDavidson on impulsive behavior and adjust the dose if necessary. labs reviewd 01/27 scanned into chart Follow-up: 2 weeks 05/05/2024 Other can cause major congenital malformations incl. neural tube defects, decr. IQ scores, neurodevelopmental disorders after in utero exposure; contraindicated for migraine prophylaxis use in and women of reproductive potential w/o effective contraception; should not be used for epilepsy or bipolar disorder use in and women planning to become unless other tx options have failed or are unacceptable; women should use effective contraception during tx Assessment and plan reviewed with patient Call for problems with medication, side effects or need for dosage change Compliance issues reviewed Discussed the risks/benefits of this medication Discussed medication side effects Return if symptoms worsen Treatment options reviewed. discussed that it can take weeks to see full therapeutic effects of psychotropic medications. discussed when to seek emergency services. discussed crisis prevention hotline 988. 1. Anxiety - Patient reports 7/10 anxiety level with intrusive thoughts. - Medications don't seem effective. - Plan: a. increase aripiprazole to 30mg. b. Decrease fluvoxamine to 50mg. c. Monitor medication response. d. Encourage suicide hotline (988) use if needed. e. advised when to seek emergency services. 2. Bipolar Disorder - Transitioning from lithium to Depakote for manic depression. - No changes noticed with adjustment. - Plan: a. Continue Depakote 500mg BID and lithium 150mg BID until therapeutic Depakote level. b. Follow up on to assess progress. 3. Insomnia - Reports 9-10 hours sleep with 2am awakenings. Trazodone not helping. - Plan: a. Discontinue trazodone. b. Continue melatonin 30min before bed. c. Add melatonin at 2am if awake. d. Monitor sleep quality. 4. Suicidal Ideation - Reports passive suicidal thoughts 4x/day. - Denies plan/intent. - Plan: a. Close monitoring. b. Encourage 988 hotline use if needed. c. Follow up on for medication effect. e. advised to go to the emergency room if thoughts get worse or unmanageable. 5. Increased Appetite - Reports constant hunger. - Plan: a. Monitor appetite/weight. b. Discuss healthy eating habits. 6. Headache - Reports headaches, not severe. - Plan: a. Monitor frequency/severity. b. Consider medication side effects. c. Recommend OTC relief as needed. 7. Medication Refill - Fluvoxamine refill needed, 3 pills left. - increase Aripiprazole to 30 mg HS. - Plan: Send refill to [facility]. Follow-up - Appointment with [facility] on . - Plan: Continue monitoring progress and medication response. 05/06/2024 Other Hydroxyzine Ora l Tablet (HYDROXYZINE HYDROCHLORIDE - ORAL) material was published 1. Anxiety -a. Patient reports anxiety level with intrusive thoughts.- therapy b. discuss and educated on Vistaril 10 mg three tmes a day PRN for anxiety and may take 1/2 dose (5 mg) in day if make tired - therapy continue - Plan: a. b. fluvoxamine to 50mg. - anxiety and OCD c. Monitor medication response. d. Encourage suicide hotline ([place]) use if needed. e. advised when to seek emergency services. 2. Bipolar Disorder - Transitioning from lithium to Depakote for manic depression. - No changes noticed with adjustment. - Plan: a. Continue Depakote 500mg BID and lithium 150mg BID until therapeutic Depakote level. b. Follow up on to assess progress. C. Abilify 30 mg at bedtime- patient reported has not picked up yet - prescribed 05/05/24 from [facility] walk in clinic 3. Insomnia - Reports 9-10 hours in bed and 8 hours sleep with awakenings. - Plan: a.. sleep hygiene b. Continue melatonin 30min before bed. c. melatonin 3 mg OTC d. Monitor sleep quality. 4. Suicidal Ideation - Reports no passive suicidal thoughts - Denies plan/intent. - Plan: a. Close monitoring. b. Encourage 988 hotline use if needed. c. Follow up on for medication effect. e. advised to go to the emergency room if thoughts get worse or unmanageable. 5. OCD A. fluvoxamine to 50mg. 6. Increased Appetite - Reports constant hunger. - Plan: a. Monitor appetite/weight. b. Discuss healthy eating habits. c. heart healthy diet and excise 7. Headache - Reports headaches, not severe. - Plan: see PCP patient will schedule appt a. Monitor frequency/severity. b. Consider medication side effects. c. Recommend OTC relief as needed. d. sleep hygiene education 8. Medication Refill - Fluvoxamine sent 05/05/24 - Aripiprazole to 30 mg HS.- RX SENT 05/05/24 - Plan: Send refill to [facility] 8. Follow-up - Appointment with [facility] on . - Plan: Continue monitoring progress and medication response. Recommend decrease/stop cannabis use as it can negatively impact mood, motivation, anxiety, sleep, focus/concentration /memory (vigilance, elasticity, processing and attention); can also contribute to development of psychosis. Cannabis/marijuana information: http_s://shaheed.nih.g ov/publications/janice gfacts/cannabis-mar ijuana http_s://www.[employer]/cannabis- xwx-eqwfrufl-npfril avinash-adhd/ http_s://www.maribel.o /Mtdtl-Ixzwds-Ivr ness/Mental-Health- Conditions http_s://psychcentr Isotera.com/depression/t jt-hvhueryzm-vdlcsx uc-bp-offqsvnpez#tr eatments http__s://www.nimh. nih.gov/health/topi cs/frlpky-rsznis-pn dications http__s://www.maribel. org/Gufoe-Ejiaaw-Kw lness/Treatments/Me lihu-Miumdm-Lwmgils ions educated on all medications, benefits, side effects and risk, and educated on depression, anxiety, and ADHD, mood d/o and educated on compliance of medications, metabolic and movement d/o education appointment's, continue therapy discussion with patient about course of treatment and patient instructions. education on serotonin syndrome Discussed and educated pt regarding benzodiazepines are generally not intended for prolonged use and that use can cause tolerance, dependence, depression, and associated memory issues including dementias (this list is not exhaustive). Benzodiazepine use is generally not recommended concurrently with pain medications and/or other controlled substances educated on all medications, benefits, side effects and risk, and educated on depression, anxiety, and ADHD, mood d/o and educated on compliance of medications, metabolic and movement d/o education appointment is, continue therapy discussion with patient about course of treatment and patient instructions. education on serotonin syndrome SSRI/SNRI side effects discussed including but not limited to, gastric upset, nausea, vomiting, diarrhea and/or constipation, weight changes, sexual side effects including loss of libido, increased suicidal thoughts/behaviors in children and young adults, and serotonin syndrome. Second generation antipsychotics (SGAs) have metabolic syndrome issues with weight gain, increase in prolactin, increased waist circumference, increased lipids, and increased glucose. Thus routine monitoring of weight, metabolic labs, etc. is indicated. A general rank ordering of antipsychotics that have the greatest to the least risk of metabolic effects is olanzapine, quetiapine, risperidone, ziprasidone, and aripiprazole. However, weight gain can occur with all of these drugs and considerable variability exists among patients receiving the same drug regarding the risk of metabolic effects. Anti-psychotic agents not only increase the risk of metabolic disorder, they also increase the risk of CVA, akathisia, and movement disorders including EPS or tardive dyskinesia (more common with first generation antipsychotics) and more. Medication Management and Follow-Up - Plan: - Schedule follow-up appointments every 1-3 months to monitor the patient's response to the medication regimen. - Reinforce the importance of avoiding recreational drug use due to potential neurotoxicity and interactions with prescribed medications. Risk- Depakote can cause major congenital malformations incl. neural tube defects, decr. IQ scores, neurodevelopmental disorders after in utero exposure; contraindicated for migraine prophylaxis use in and women of reproductive potential w/o effective contraception; should not be used for epilepsy or bipolar disorder use in and women planning to become unless other tx options have failed or are unacceptable; women should use effective contraception during tx 05/15/2024 Other Bipolar Disorde r: Care Instructions material was published, Learning About Movement Disorders From Antipsychotic Medicines material was published, Learning About How to Get Help During a Mental Health Crisis material was published, Learning About Mood Disorders material was published Bipolar Disorder: Care Instructions material was published, Learning About Movement Disorders From Antipsychotic Medicines material was published, Learning About How to Get Help During a Mental Health Crisis material was published, Learning About Mood Disorders material was published 1. Anxiety -a. Patient reports anxiety level with intrusive thoughts.- therapy b. discuss and educated on Vistaril 10 mg three tmes a day PRN for anxiety and may take 1/2 dose (5 mg) in day if make tired - therapy continue - Plan: a. b. fluvoxamine to 100mg. - anxiety and OCD c. Monitor medication response. d. Encourage suicide hotline (988) use if needed. e. advised when to seek emergency services. 2. Bipolar Disorder - lithium and Depakote for manic and depression - reported tolerating well and helping mood. - No changes - Plan: a. Continue Depakote 500mg BID and lithium 150mg BID - educated on labs for [place] and Depakote level. b. Follow up [facility] and therapy scheduled C. Abilify 30 mg at bedtime- patient reported has not picked up yet - prescribed 05/05/24 from [facility] walk in clinic planned Tubal 05/29/24 3. Insomnia - Reports 9-10 hours - Plan: a.. sleep hygiene b. Continue melatonin 30min before bed. c. melatonin 3 mg OTC d. Monitor sleep quality. Trazodone 50 mg PRN 4. Suicidal Ideation- stable - Reports no passive suicidal thoughts - Denies plan/intent. - Plan: a. Close monitoring. b. Encourage 988 hotline use if needed. c. Follow up [facility] and seeing therapist e. advised to go to the emergency room if thoughts get worse or unmanageable. 5. OCD- increase thoughts and behaviors on 50 mg dose A. increase fluvoxamine to 100mg. 6. Appetite normal now - Reports constant hunger. - Plan: a. Monitor appetite/weight. b. Discuss healthy eating habits. c. heart healthy diet and excise 7. Headache - Reports headaches, improved - Plan: see PCP patient will schedule appt and discuss HTN a. Monitor frequency/severity. b. Consider medication side effects. c. Recommend OTC relief as needed. d. sleep hygiene education 8. Medication Refill - Plan: Send refill to [facility] Recommend decrease/stop cannabis use as it can negatively impact mood, motivation, anxiety, sleep, focus/concentration /memory (vigilance, elasticity, processing and attention); can also contribute to development of psychosis. Cannabis/marijuana information: http_s://shaheed.nih.g ov/publications/janice gfacts/cannabis-mar ijuana http_s://www.[employer].Safecare/cannabis- qmi-fimjgrlq-wgqhpt avinash-adhd/ http_s://www.maribel.o rg/[place]-Mpirfd-Gxy ness/Mental-Health- Conditions http_s://psychcentr Isotera.com/depression/t zj-dfcoptqou-sxgkbp os-qo-rmdgdufbny#tr eatments http__s://www.nimh. nih.gov/health/topi cs/lsvnvd-rsqyft-we dications http__s://www.maribel. org/Ptqgc-Pgglgs-Yh lness/Treatments/Me ctou-Rcfkyy-Ykjkfmi ions educated on all medications, benefits, side effects and risk, and educated on depression, anxiety, and ADHD, mood d/o and educated on compliance of medications, metabolic and movement d/o education appointment's, continue therapy discussion with patient about course of treatment and patient instructions. education on serotonin syndrome Discussed and educated pt regarding benzodiazepines are generally not intended for prolonged use and that use can cause tolerance, dependence, depression, and associated memory issues including dementias (this list is not exhaustive). Benzodiazepine use is generally not recommended concurrently with pain medications and/or other controlled substances educated on all medications, benefits, side effects and risk, and educated on depression, anxiety, and ADHD, mood d/o and educated on compliance of medications, metabolic and movement d/o education appointment is, continue therapy discussion with patient about course of treatment and patient instructions. education on serotonin syndrome SSRI/SNRI side effects discussed including but not limited to, gastric upset, nausea, vomiting, diarrhea and/or constipation, weight changes, sexual side effects including loss of libido, increased suicidal thoughts/behaviors in children and young adults, and serotonin syndrome. Second generation antipsychotics (SGAs) have metabolic syndrome issues with weight gain, increase in prolactin, increased waist circumference, increased lipids, and increased glucose. Thus routine monitoring of weight, metabolic labs, etc. is indicated. A general rank ordering of antipsychotics that have the greatest to the least risk of metabolic effects is olanzapine, quetiapine, risperidone, ziprasidone, and aripiprazole. However, weight gain can occur with all of these drugs and considerable variability exists among patients receiving the same drug regarding the risk of metabolic effects. Anti-psychotic agents not only increase the risk of metabolic disorder, they also increase the risk of CVA, akathisia, and movement disorders including EPS or tardive dyskinesia (more common with first generation antipsychotics) and more. 08/25/2024 Other Aripiprazole Or al Tablet 20 mg (ARIPIPRAZOLE - ORAL) material was published, Valproate Extended Release Oral Tablet (DIVALPROEX SODIUM EXTENDED-RELEASE - ORAL) material was published, [place] Carbonate Oral Capsule (LITHIUM - ORAL) material was published, Paliperidone Extended Release Oral Tablet (PALIPERIDONE EXTENDED-RELEASE - ORAL) material was published, Hydroxyzine Oral Tablet (HYDROXYZINE HYDROCHLORIDE - ORAL) material was published, Fluvoxamine Oral Tablet (FLUVOXAMINE - ORAL) material was published 1. Anxiety -a. Patient reports improved anxiety level with intrusive thoughts.- therapy b. discuss and educated on Vistaril 10 mg at bedtime for anxiety and may take 1/2 dose (5 mg) in day if make tired - therapy continue - Plan: continue insurance requires 30 days at a time with refills OCD A. fluvoxamine to 100mg. - anxiety and OCD- improved B. Monitor medication response. C. Encourage suicide hotline (454) use if needed. D. advised when to seek emergency services. 2. Bipolar Disorder educated on therapy and CBT/DBT. ED- will work on situational stressors and fears in therapy Educated on proper use light box and not to stay in basement in day and come upstairs in day and open curtains, and outside help depression - lithium and Depakote for manic and depression - reported tolerating well and helping mood. Continue Depakote 500 mg BID Patient increased lithium 150 mg twice a day r/t eduardo s/s at once a day and improved and monitor tremors in hands - Discuss Gene sight and switch from Abilify to Invega for Bipolar to control symptoms - will decrease Abilify to 20 mg daily and add Invega 3 mg daily patient will be on 2 anti-psychotics at tthis time while tapering off Abilify to control s/s discuss and educated on Invega injections for near future plan to taper off [place] r/t tremors - educated on labs for [place] and Depakote level. . Follow up [facility] and therapy scheduled- will make list of concerns for therapy and work on situational stressors, fears, and emotions in therapy labs completed 05/28/24 Valporic acid 36, [place] 0.4, WBC, CMP, CARDIAC enzymes scanned into chart LABS SCHEDULED today PCP will add [place] and Depakote Gene sight reviewed and Abilify may need to be decrease in future - patient reported been working well Tubal 05/30/24- 3. Insomnia - Reports sleep apnea -no CPAP presently not using- plan on getting new CPAP - Plan: a.. sleep hygiene b. Continue melatonin 30min before bed. c. melatonin 3 mg OTC d. Monitor sleep quality. 4. Suicidal Ideation- stable - Reports no passive suicidal thoughts - Denies plan/intent. a. Close monitoring. b. Encourage 938/911 hotline use if needed. c. Follow up MIRELA and seeing therapist e. advised to go to the emergency room if thoughts get worse or unmanageable. 5. OCD- thoughts and behaviors fluvoxamine to 100mg. 6.ADHD Comination hx since childhood and rx at childhood and adult LIDIA-AE 2 TEST Reviewed test results are congruent for ADHD combination discuss and educated on non-stimulates and stimualtes reviewed Gene sight - Vyvanse, Dextroamphetamine, and Adderall has no proven genetic markers Focalin and Concerta moderate gene- drug interaction and genotype may impact drug mechanism of action and result in moderate reduce efficacy Plan: Guanfacine use as directed discuss and educated and will add Guanfacine 1 mg daily in am Qelbree- Moderate gene interaction- serum levls may be too low and lower doses may be needed Straterra- significant gene and drug interaction- serum levels too high and lower dose may be needed, CYP2D6 indicate increase side effects, but also greater symptom improvement with those find tx toleratable, potential gene interaction ADHD stimulates education Discuss with patient risk of misuse, abuse, and addiction before prescribing stimulant medicines. 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 Educate patients and their families on these serious risks, proper storage of the medicine, and proper disposal of any unused medicine. Educated patient will monitor Throughout treatment, regularly assess and monitor them for signs and symptoms of nonmedical use, addiction, and potential diversion, which may be evidenced by more frequent renewal. requests than warranted by the prescribed dosage. Random [facility] [place] prescription reviewed local pharmacy in [place], no early refills on control substance educated on non-stimulate and stimulates - Plan: Send refill to [facility] need 30 days at a time r/t insurance Gene Sight discuss Follow up MIRELA and therapy scheduled- will make list of concerns for therapy and work on situational stressors, fears, and emotions in therapy educated on cannabis use as it can negatively impact mood, motivation, anxiety, sleep, focus/concentration /memory (vigilance, elasticity, processing and attention); can also contribute to development of psychosis. Cannabis/marijuana information: http_s://shaheed.nih.g ov/publications/janice gfacts/cannabis-mar ijuana http_s://www.Weight Wins/cannabis- tkj-ibtnnunh-frmudk avinash-adhd/ http_s://www.maribel.o rg/Enocq-Yhskhc-Yil ness/Mental-Health- Conditions http_s://psych5 CUPS and some sugarr Isotera.com/depression/t bt-mljbzzefy-lwtjce us-to-krgnqhvffc#tr eatments http__s://www.nimh. nih.gov/health/topi cs/vfhdhp-qlnkxm-cb dications http__s://www.maribel. org/Oaajs-Biniyy-Sm lness/Treatments/Me ciut-Rwsdnp-Sehpwiy ions educated on all medications, benefits, side effects and risk, and educated on depression, anxiety, and ADHD, mood d/o and educated on compliance of medications, metabolic and movement d/o education appointment's, continue therapy discussion with patient about course of treatment and patient instructions. education on serotonin syndrome Discussed and educated pt regarding benzodiazepines are generally not intended for prolonged use and that use can cause tolerance, dependence, depression, and associated memory issues including dementias (this list is not exhaustive). Benzodiazepine use is generally not recommended concurrently with pain medications and/or other controlled substances educated on all medications, benefits, side effects and risk, and educated on depression, anxiety, and ADHD, mood d/o and educated on compliance of medications, metabolic and movement d/o education appointment is, continue therapy discussion with patient about course of treatment and patient instructions. education on serotonin syndrome SSRI/SNRI side effects discussed including but not limited to, gastric upset, nausea, vomiting, diarrhea and/or constipation, weight changes, sexual side effects including loss of libido, increased suicidal thoughts/behaviors in children and young adults, and serotonin syndrome. Second generation antipsychotics (SGAs) have metabolic syndrome issues with weight gain, increase in prolactin, increased waist circumference, increased lipids, and increased glucose. Thus routine monitoring of weight, metabolic labs, etc. is indicated. A general rank ordering of antipsychotics that have the greatest to the least risk of metabolic effects is olanzapine, quetiapine, risperidone, ziprasidone, and aripiprazole. However, weight gain can occur with all of these drugs and considerable variability exists among patients receiving the same drug regarding the risk of metabolic effects. Anti-psychotic agents not only increase the risk of metabolic disorder, they also increase the risk of CVA, akathisia, and movement disorders including EPS or tardive dyskinesia (more common with first generation antipsychotics) and more. 09/17/2024 Other 1. Major Depressive Disorder - BDI score of 27. - Patient reports depression rating of 6/10. - Plan: a. obtain lithium and depakote levels and adjust medication accordingly. b. Monitor for improvement in depressive symptoms. c. Continue therapy sessions twice a month. 2. Generalized Anxiety Disorder - FAITH-7 score of 17. - Patient reports anxiety rating of 5-6. - Currently taking hydroxyzine 10 mg, 3 times a day as needed. - Plan: a. Encourage patient to take hydroxyzine up to 3 times daily as needed. b. Monitor for improvement in anxiety symptoms. 3. Bipolar Disorder - Recent manic episode reported. - Recent changes: stopped aripiprazole , started guanfacine. - Plan: a. Monitor lithium and Depakote levels. b. Taper lithium as needed. c. Continue current medications. d. Assess for mood stability. 4. Sleep Apnea - Patient not yet using CPAP machine. - Plan: Encourage patient to obtain and use CPAP machine for improved sleep quality. 5. Tremors - Patient reports hand tremors. - Plan: Monitor tremors and consider tapering lithium if necessary. - no tremors noted during assessment. 01/30/2025 Other If you are planning on becoming , notify your health care provider so that he/she can best manage your medications. People living with bipolar disorder who wish to become face important decisions. It is important to discuss the risks and benefits of treatment with your doctor and caregivers. [place] has been associated with an increased risk of Ebstein's anomaly, a heart valve defect. Even though data suggest that the risk of Ebstein's anomaly from first trimester use of lithium is very low, an ultrasound of the heart is recommended at 16 to 20 weeks of gestation. [place] levels should be monitored monthly in early and weekly near delivery. Do not stop taking lithium without first speaking to your health care provider. Discontinuing mood stabilizer medications during has been associated with a significant increase in symptom relapse. If an overdose occurs call your doctor or 911. You may need urgent medical care. You may also contact the poison control center at . A specific treatment to reverse the effects of lithium does not exist, but there are treatments to decrease the effects of the medication. Only a doctor can determine if you require treatment. Avoid drinking alcohol or using illegal drugs while you are taking lithium. They may decrease the benefits (e.g., worsen your condition) and increase adverse effects (e.g., sedation) of the medication. Avoid low sodium diets and dehydration because this can increase the risk of lithium toxicity. Avoid over the counter and prescription pain medications that contain nonsteroidal anti-inflammatory medications (NSAIDS) such as ibuprofen (Motrin, Advil) or naproxen (Aleve, Naprosyn) because these medications can increase the risk of toxicity from lithium. Avoid excessive intake of caffeinated beverages, such as coffee, tea, cola or energy drinks, since these may decrease levels of lithium and decrease effectiveness of the medication. Discontinuing caffeine use may increase lithium levels. Consult your health care provider before reducing or stopping caffeine use. What are the possible side effects of lithium? Common side effects Headache Nausea or vomiting Diarrhea Dizziness or drowsiness Changes in appetite Hand tremors Dry mouth Increased thirst Increased urination Thinning of hair or hair loss Acne-like rash Rare/Serious side effects Signs of lithium toxicity include severe nausea and vomiting, severe hand tremors, confusion, vision changes, and unsteadiness while standing or walking. These symptoms need to be addressed immediately with a medical doctor to ensure your lithium level is not dangerously high. In rare cases, lithium may lead to a reversible condition known as diabetes insipidus. If this occurs you would notice a significant increase in thirst and how much fluid you drink and how much you urinate. Talk to your doctor if you notice you are urinating more frequently than usual. Are There Any Risks For Taking [place] For Long Periods Of Time? Hypothyroidism (low levels of thyroid hormone) may occur with long-term lithium use. Rare kidney problems have been associated with long-term use of lithium. The risk increases with high levels of lithium. Your doctor will monitor your kidney function at routine check-ups to ensure this does not occur. Summary of Black Box Warnings [place] Toxicity [place] toxicity is closely related to lithium blood levels and can occur at doses close to therapeutic levels; lithium levels should be monitored closely when starting the medication or if individuals experience side effects of the medication. 1. Anxiety hx Patient reports anxiety level with intrusive thoughts and fear of night and sleep, and being alone discuss making list of thoughts, goals, plans and place in action discuss activity for day sleep hygiene education continue therapy discuss and educated on all rx Vistaril 10 mg three time a day for anxiety- HX Vistaril reported 25 mg dose more on edge - therapy continue- discuss DBT/CBT therapy discuss IOP program discuss journaling, coping skills, and identify triggers insurance requires 30 days at a time with refills 2. OCD A. fluvoxamine to 100mg. - anxiety and OCD- helping B. Monitor medication response. Encourage suicide hotline (934) use if needed.. advised when to seek emergency services. 3. Bipolar Disorder educated on therapy and CBT/DBT. ED- will work on situational stressors and fears in therapy Educated on proper use light box and not to stay in basement in day and come upstairs in day and open curtains, and outside help depression - lithium and Depakote for manic and depression - reported tolerating well and helping mood. Continue Depakote 500 mg BID lithium 150 mg twice a day hx r/t eduardo s/s at once a day and improved and monitor tremors in hands - labs 10/28 [place] 0.3 Depakote 33.6 Discuss Gene sight and Invega for Bipolar to control symptoms - Invega 3 mg daily continue discuss and educated on Invega injections for near future- Risk- Depakote can cause major congenital malformations incl. neural tube defects, decr. IQ scores, neurodevelopmental disorders after in utero exposure; contraindicated for migraine prophylaxis use in and women of reproductive potential w/o effective contraception; should not be used for epilepsy or bipolar disorder use in and women planning to become unless other tx options have failed or are unacceptable; women should use effective contraception during tx plan to taper off [place] r/t tremors - educated on labs for [place] and Depakote level.- [facility] . Follow up MIRELA and therapy scheduled- will make list of concerns for therapy and work on situational stressors, fears, and emotions in therapy labs completed 09/30 Gene sight reviewed and Abilify may need to be decrease in future - patient reported been working well Tubal 05/30/24- 3. Insomnia - Reports sleep apnea -no CPAP presently not using- plan on getting new CPAP- PCP ordered- still waiting on CPAP 11/13/24 - Plan: a.. sleep hygiene b. Continue melatonin 30 min before bed. c. melatonin 5-10 mg OTC d. Monitor sleep quality. discuss sleep hygeine habits 4. Suicidal Ideation- stable - Reports no passive suicidal thoughts - Denies plan/intent. a. Close monitoring. b. Encourage 088/761 hotline use if needed. c. Follow up MIRELA and seeing therapist e. advised to go to the emergency room if thoughts get worse or unmanageable. 5. OCD- thoughts and behaviors fluvoxamine to 100mg. 6.ADHD Comination hx since childhood and rx at childhood and adult LIDIA-AE 2 TEST Reviewed test results are congruent for ADHD combination hx Wellbutrin 300 mg dose - SI and eduardo discuss and educated on non-stimulates and stimualtes reviewed Gene sight - Vyvanse, Dextroamphetamine, and Adderall has no proven genetic markers Focalin and Concerta moderate gene- drug interaction and genotype may impact drug mechanism of action and result in moderate reduce efficacy discuss and educated Guanfacine 1 mg daily in am- reported wants to restart at 1 mg dose since 2 mg dose caused dry mouth- Qelbree- Moderate gene interaction- serum levls may be too low and lower doses may be needed Straterra- significant gene and drug interaction- serum levels too high and lower dose may be needed, CYP2D6 indicate increase side effects, but also greater symptom improvement with those find tx toleratable, potential gene interaction ADHD stimulates education Discuss with patient risk of misuse, abuse, and addiction before prescribing stimulant medicines. 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 Educate patients and their families on these serious risks, proper storage of the medicine, and proper disposal of any unused medicine. Educated patient will monitor Throughout treatment, regularly assess and monitor them for signs and symptoms of nonmedical use, addiction, and potential diversion, which may be evidenced by more frequent renewal. requests than warranted by the prescribed dosage. Random [facility] prescription reviewed local pharmacy in [place], no early refills on control substance educated on non-stimulate and stimulates - Plan: Send refill to [facility] need 30 days at a time r/t insurance Gene Sight discuss Follow up MIRELA and therapy scheduled- will make list of concerns for therapy and work on situational stressors, fears, and emotions in therapy educated on cannabis use as it can negatively impact mood, motivation, anxiety, sleep, focus/concentration /memory (vigilance, elasticity, processing and attention); can also contribute to development of psychosis. Cannabis/marijuana information: http_s://shaheed.nih.g ov/publications/janice gfacts/cannabis-mar ijuana http_s://www.Weight Wins/cannabis- dzo-rlvixtsy-fklndf avinash-adhd/ http_s://www.maribel.o rg/Ywxoy-Iftzay-Eab ness/Mental-Health- Conditions http_s://psych5 CUPS and some sugarr Isotera.com/depression/t ql-zqwxfycgv-ahexad in-ri-hrimcdsjdi#tr eatments http__s://www.nimh. nih.gov/health/topi cs/jtouiq-yvhcoa-zw dications http__s://www.maribel. org/Rpfrm-Aydaer-Iy lness/Treatments/Me zibx-Tajaeg-Ofdoxsp ions educated on all medications, benefits, side effects and risk, and educated on depression, anxiety, and ADHD, mood d/o and educated on compliance of medications, metabolic and movement d/o education appointment's, continue therapy discussion with patient about course of treatment and patient instructions. education on serotonin syndrome Discussed and educated pt regarding benzodiazepines are generally not intended for prolonged use and that use can cause tolerance, dependence, depression, and associated memory issues including dementias (this list is not exhaustive). Benzodiazepine use is generally not recommended concurrently with pain medications and/or other controlled substances educated on all medications, benefits, side effects and risk, and educated on depression, anxiety, and ADHD, mood d/o and educated on compliance of medications, metabolic and movement d/o education appointment is, continue therapy discussion with patient about course of treatment and patient instructions. education on serotonin syndrome SSRI/SNRI side effects discussed including but not limited to, gastric upset, nausea, vomiting, diarrhea and/or constipation, weight changes, sexual side effects including loss of libido, increased suicidal thoughts/behaviors in children and young adults, and serotonin syndrome. Second generation antipsychotics (SGAs) have metabolic syndrome issues with weight gain, increase in prolactin, increased waist circumference, increased lipids, and increased glucose. Thus routine monitoring of weight, metabolic labs, etc. is indicated. A general rank ordering of antipsychotics that have the greatest to the least risk of metabolic effects is olanzapine, quetiapine, risperidone, ziprasidone, and aripiprazole. However, weight gain can occur with all of these drugs and considerable variability exists among patients receiving the same drug regarding the risk of metabolic effects. Anti-psychotic agents not only increase the risk of metabolic disorder, they also increase the risk of CVA, akathisia, and movement disorders including EPS or tardive dyskinesia (more common with first generation antipsychotics) and more. Plan Of Treatment Pending Test Test Name Order Date LITHIUM (613) 09/17/2024 VALPROIC ACID (916) 09/17/2024 ADHD Testing 07/24/2024 Future Test Test Name Order Date ADHD Testing 07/17/2024 Next Appt Details Provider Name:Abby Adam , 04/27/2025 08:15:00 AM, [address], [place], [address], Insurance Providers Payer Name Payer Address Payer Phone Subscriber Number Group Number Insured Name Patient Relationship to Insured Coverage Start Date Coverage End Date [employer] [address] [place] [address] [id number] Mickie Maier Self - patient is the insured Medical (General) History Medical History History ICD Code Past Psychiatric History: An xiety Disorder,PTSD,Major Depressive Episode,Bipolar Disorder abdominal aortic aneurysm: No atrial fibrillation: No chronic fatigue syndrome: No essential tremor: Yes hyperlipidemia: Yes hypertension: No Parkinson's disease: No restless leg syndrome: No stroke: No subdural hematoma: No type 1 diabetes mellitus: No type 2 diabetes mellitus: No vitamin B12 deficiency: Yes vitamin D deficiency: Yes Surgical History Surgery Date(Month/Year) open heart x3 tubal 05/30/24
--- OUTSIDE RECORDS SUMMARY | 2025-02-12 14:34 | XMS_ITS | Encounter Summary ---
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 [address] [place] [address] PCP - General PHYSICIAN TRAINING ASSOCIATE 09/25/22 Flora Ames MD Three [facility]. [facility] [address] [place], [place] [id number] [place] Marketing Services Manager CARDIOVASCULAR DISEASE 05/02/17 documented as of this encounter
--- OUTSIDE RECORDS SUMMARY | 2025-02-12 14:34 | XMS_ITS | Clinical Summary ---
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
--- OUTSIDE RECORDS SUMMARY | 2025-02-12 14:34 | XMS_ITS | Clinical Summary ---
Author Organization [facility] Address [address] [place] [address] Care Team Providers Care Urologist Md Name Role Phone Flora Ames MD Unavailable [phone] Jimmy Raphael Primary Care Provider Unavail [...] 07/02/2021 Active propranolol 40 MG tablet Take 1 tablet (40 mg total) by mouth 3 (three) times a day. 07/01/2021 Active ibuprofen (MOTRIN) 600 MG tablet Take 1 tablet (600 mg total) by mouth every 6 (six) hours as needed. 20 tablet 04/24/2023 Active lithium 150 MG capsule TAKE 1 CAPSULE BY MOUTH TWICE DAILY for 04/24/2024 Active divalproex ER (DEPAKOTE) 500 MG 24 hr tablet TAKE 1 TABLET BY MOUTH TWICE DAILY for 04/10/2024 Active norgestimate-et hinyl estradiol (ESTARYLLA) 0.25-35 MG-MCG tablet daily. Active melatonin 10 MG tablet Active hydrOXYzine (ATARAX) 10 MG tablet every 8 hours 05/06/2024 Active paliperidone ER (INVEGA) 3 MG 24 hr tablet Take 1 tablet (3 mg total) by mouth every morning. Active Active Problems Problem Noted Date Diagnosed Date Lumbar radiculopathy 12/11/2024 Chest pain 07/15/2021 Carpal tunnel syndrome of right wrist 01/04/2021 Rotator cuff tendonitis, right 01/04/2021 Subaortic stenosis ([facility]/HCC) 05/07/2017 Palpitations 05/07/2017 Congenital heart disease ([facility]) Encounters Date Type Department Care Team Description 01/30/2025 Hospital Encounter [facility] [place] [address] [id number] Nicole Dick MD 01/20/2025 8:20 AM CDT - 01/20/2025 8:40 AM CDT Surgery [facility] [place] [address] [id number] Nicole Dick MD INJECTION EPIDURAL [id number] 1 01/20/2025 7:57 AM CDT - 01/20/2025 9:13 AM CDT Hospital Encounter [facility] [place] [address] [id number] Nicole Dick MD Discharge Disposition: Home or Self Care (Routine Discharge) 01/20/2025 Travel 12/11/2024 Prep for Procedure [facility] [place] [address] [id number] Robbie Walker, MANUAL ARTS THERAPIST from Last 3 Months Family History Medical History Relation Comments Diabetes [...] 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 Not on file Not on shannon e Last Filed Vital Signs Vital Sign Reading Time Taken Comments Blood Pressure 110/65 01/20/2025 8:59 AM CDT Pulse 68 01/20/2025 8:59 AM CDT Temperature 36.6 C (97.8 F) 01/20/2025 8:21 AM CDT Respiratory Rate 18 01/20/2025 8:59 AM CDT Oxygen Saturation 97% 01/20/2025 8:59 AM CDT Inhaled Oxygen Concentration - - Weight 104.5 kg (230 lb 6.4 oz) 01/20/2025 8:21 AM CDT Height 158.8 cm (5' 2.5) 01/20/2025 8:21 AM CDT Body Mass Index 41.47 01/20/2025 8:21 AM CDT Plan of Treatment Health Maintenance Due Date Last Done Comments Cervical Cancer Screening Pap Smear (Age 30 to 64) Every 3 Years 1993 Annual Physical 1996 Hepatitis C 12/21/2011 Cervical Cancer Screening Pap with HPV Testing (Age 30 to 64) Every 5 Years 12/21/2023 Cervical Cancer Screening with HPV 12/21/2023 COVID-19 Vaccine ( season) 2024 09/09/2020, 08/09/2020, 08/09/2019 DTaP, Tdap and Td Vaccines (9 - [...] 5 Years) and At-Risk Patients (6 to 49 Years) Aged Out No longer eligible based on patient's age to complete this topic RSV Immunizations Under 20 Months Aged Out No longer eligible based on patient's age to complete this topic Procedures Procedure Name Priority Date/Time Associated Diagnosis Comments NJX AA&/STRD TFRML EPI LUMBAR/SACRAL 1 LEVEL 01/20/2025 8:48 AM CDT Lumbar radiculopathy XR [facility] Today 01/20/2025 8:24 AM CDT from Last 3 Months Results * XR PA[facility] C-ARM (01/20/2025 8:24 AM CDT) Narrative Radiology, Technologist - 01/20/2025 8:24 AM CDT This report does not contain a radiologist's interpretation. Please review associated procedure and/or operative report. Nicole Dick MD GENERAL IMAGING Final Result from Last 3 Months Insurance [employer] Care Teams Urologist Md Relationship Specialty Start Date End Date Jimmy Raphael PA Three [facility]. [facility] [address] [place] [address] PCP - General PHYSICIAN SENIOR TECHNICAL PROGRAM MANAGER 09/25/22 Flora Ames MD Three [facility]. [facility] [address] [place] [address] [place] Tennis Coach CARDIOVASCULAR DISEASE 05/02/17
--- OUTSIDE RECORDS SUMMARY | 2025-02-12 14:34 | XMS_ITS | Encounter Summary ---
Author Organization [facility] Address [address] [place] [address] Care Team Providers Care Project Scientist Name Role Phone Flora Ames MD Unavailable [phone] Jimmy Raphael Primary Care Provider Unavail able Encounter Details Date Type Department Care Team (Late st Contact Info) Description 01/30/2025 Hospital Encounter [facility] [place], [place] [id number] Nicole Dick MD Three [facility] [address] [place] [address] Social History Tobacco Use Types Packs/Day Years Used Date Smoking Tobacco: Never Smokeless Tobacco: Never Alcohol Use Standard Drinks/Week Comments Not Currently [...] 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 Answer Date of Assessment Author Status No 07/15/2021 6:11 PM HULL GRINDER Activ e * Do you have serious difficulty walking or climbing stairs? Answer Date of Assessment Author Status No 07/15/2021 6:11 PM Surekha Velez RN Active * Do you have difficulty dressing or bathing? Answer Date of Assessment Author Status No 07/15/2021 6:11 PM Surekha Velez RN Active * Because of a physical, mental, or emotional condition, do you have difficulty doing errands alone such as visiting a doctor's office or shopping? Answer Date of Assessment Author Status No 07/15/2021 6:11 PM Surekha Velez RN Active * Calculated C-SSRS Risk Score (Lifetime/Recent) Answer Date of Assessment Author Status No Risk Indicated 01/20/2025 8:20 AM Selam Caicedo RN Active * [place] Suicide Severity Rating Scale (Screener/Recent Self-Report) Question Answer Date of Assessment Author Status 1. Wish to be (Past 1 Month) No 01/20/2025 8:20 AM Wilfredo Caicedo RN Ac tive 2. Non-Specific Active Suicidal Thoughts (Past 1 Month) No 01/20/2025 8:20 AM Wilfredo Caicedo RN Ac tive documented as of this encounter Mental Status * Because of a physical, mental, or emotional condition, do you have serious difficulty concentrating, remembering, or making decisions? Answer Entry Date Author Status No 07/15/2021 6:11 PM Surekha Velez RN Active documented in this encounter Plan of Treatment Not on file documented as of this encounter Visit Diagnoses Not on filedocumented in this encounter Care Teams Project Scientist Relationship Specialty Start Date End Date Jimmy Raphael PA [facility] [address] [place] [address] PCP - General PHYSICIAN DEPARTMENT CHAIRPERSON 09/25/22 Flora Ames MD [facility]. [address] [place] [address] Julio C Molder Apprentice CARDIOVASCULAR DISEASE 05/02/17 documented as of this encounter
--- NOTE | 2025-02-12 14:36 | ED.WEAKNESS ---
HPI - Weakness General Chief complaint: Weakness <Korin Mahaarj PA-C - Last Filed: 02/12/25 14:37> Stated complaint: weakness, leg cramps, I'm dehydrated <Korin Maharaj PA-C - Last Filed: 02/12/25 14:37> Time Seen by Provider: 02/12/25 20:02 <Korin Maharaj PA-C - Last Filed: 02/12/25 14:37> Focused HPI: 29-year-old female with a reported history of subaortic stenosis s/p 3 repairs and 2011 in 2019 presents to the emergency department for palpitations and concerns for dehydration. Patient states her AC has been out for the past couple of weeks and she has been sweating a lot. She states today around 11 she felt as though her heart was skipping beats. She does endorse a history of an arrhythmia however she is uncertain what kind of arrhythmia this is. She states the arrhythmias self-resolved after her 2nd subaortic stenosis repair in 2011 and she has not had any issues since. She follows with cardiology at [facility]. she any chest pain, shortness of breath, lower extremity edema. GENERAL: Well-appearing, well-nourished, and in no acute distress. HEAD: Normocephalic, atraumatic. CHEST: Clear to auscultation. ?No respiratory distress. HEART: Regular rate and rhythm.? NEURO: ?Alert and oriented x3. Patient screened in triage and initial orders placed.? ?Additional care and disposition to be based upon?diagnostic testing and treatment. <Korin Maharaj PA-C - Last Filed: 02/12/25 14:37> Focused HPI: 29-year-old female with a reported history of subaortic stenosis s/p 3 repairs and 2011 in 2019 presents to the emergency department for palpitations and concerns for dehydration. Patient states her AC has been out for the past couple of weeks and she has been sweating a lot. She states today around 11 she felt as though her heart was skipping beats. She does endorse a history of an arrhythmia however she is uncertain what kind of arrhythmia this is. She states the arrhythmias self-resolved after her 2nd subaortic stenosis repair in 2011 and she has not had any issues since. She follows with cardiology at [facility]. she any chest pain, shortness of breath, lower extremity edema. GENERAL: Well-appearing, well-nourished, and in no acute distress. HEAD: Normocephalic, atraumatic. CHEST: Clear to auscultation. ?No respiratory distress. HEART: Regular rate and rhythm.? NEURO: ?Alert and oriented x3. Patient screened in triage and initial orders placed.? ?Additional care and disposition to be based upon?diagnostic testing and treatment. AGREE WITH TRIAGE ASSESSMENT. PATIENT IS CURRENTLY ASYMPTOMATIC STATES THAT HIS SYMPTOMS HAVE RESOLVED WHILE SHE WAS WAITING IN THE WAITING ROOM. <Pedro Luis rOozco MD - Last Filed: 02/12/25 20:27> Related Data Home medications: Home Medications ?Medication ?Instructions ?Recorded ?Confirmed ?Last Taken ?Type divalproex 500 mg tablet,extended 500 mg PO BID 05/15/24 05/26/24 05/29/24 20:00 History release 24 hr fluvoxamine 100 mg tablet 100 mg PO DAILY 05/15/24 05/26/24 05/29/24 20:00 History lithium carbonate 150 mg capsule 150 mg PO BID 05/15/24 05/26/24 05/29/24 20:00 History melatonin 3 mg tablet 3 mg PO HS PRN Sleep 05/15/24 05/26/24 05/29/24 20:00 History propranolol 160 mg capsule,24 160 mg PO HS 05/15/24 05/26/24 05/29/24 20:00 History hr,extended release aripiprazole 30 mg tablet 30 mg PO QHS 08/19/24 08/19/24 Unknown History biotin 10,000 mcg capsule 1 mcg PO DAILY 08/19/24 08/19/24 Unknown History hydroxyzine HCl 10 mg tablet 10 mg PO QHS 08/19/24 08/19/24 Unknown History <Korin Maharaj PA-C - Last Filed: 02/12/25 14:37> Allergies/Adverse reactions: Allergies Allergy/AdvReac Type Severity Reaction Status Date / Time amoxicillin Allergy Hives Verified 08/19/24 14:16 clavulanic acid (From Allergy Hives Verified 08/19/24 14:16 Augmentin) rifamycin Allergy Hives Verified 08/19/24 14:16 morphine AdvReac Vomiting Verified 08/19/24 14:16 <Korin Maharaj PA-C - Last Filed: 02/12/25 14:37> Review of Systems Review of Systems: All systems are reviewed and are negative unless stated otherwise in the HPI. <Pedro Luis Orozco MD - Last Filed: 02/12/25 20:27> PMFSH Past Medical History Medical History: Medical History Sinus tachycardia Morbid obesity with BMI of 40.0-44.9, adult PCOS (polycystic ovarian syndrome) Chronic low back pain MISA (obstructive sleep apnea) (~2018) Subvalvar aortic stenosis (~1995) Bipolar 1 disorder OCD (obsessive compulsive disorder) Depression Anxiety Anemia <Korin Maharaj PA-C - Last Filed: 02/12/25 14:37> Surgical History Surgical History: Surgical History History of aortic valvuloplasty x3 - 1998,2005,2019 History of tubal ligation (~2023) <Korin Maharaj PA-C - Last Filed: 02/12/25 14:37> Family History Family History: Family History Mother Depression Hypertension Father Depression Diabetes mellitus Sibling Asthma Depression Grandparent Diabetes mellitus Heart disease <Korin Maharaj PA-C - Last Filed: 02/12/25 14:37> Social History Social History: Social History Smoking status: Never smoker Alcohol intake: never Substance use: never Substance use type: does not use Do You Feel Safe in your Home?: Yes Lack of Transportation: No Lack of Food: Never True Current Housing: I Have Housing Concerned About Future Housing: No Difficulty Paying Gas/Electric Bills: No Difficulty Paying for Meds: No Currently Unemployed: No Education: Trade/Vocational Certificate Difficulty w/ Childcare or Family Care: No Living arrangements: with family Occupation/Education: occupation Gender identity (if verbalized by the patient): Female Spiritual care concerns: No Agree to blood products: Yes <Korin Maharaj PA-C - Last Filed: 02/12/25 14:37> Exam Narrative: General: Alert, awake, afebrile, in no acute distress. HEENT: PERRL, no rhinorrhea, no post nasal drip, oropharynx clear. Neck: Trachea midline, no JVD, no lymphadenopathy. Cardiovascular: Bradycardia with regular rhythm, no murmurs, rubs or gallops, no peripheral edema. Respiratory: Clear to auscultation bilaterally, no tachypnea, no wheezing, no rhonchi, no rubs, no respiratory distress. Abdomen: Soft, nontender, nondistended, no rebound, no guarding, no peritoneal signs. Musculoskeletal: No joint swelling or deformity, normal muscle tone. Skin: No rashes or petechia, no signs of infection. Psychiatric: Alert and oriented, normal behavior and judgment for situation. Neurological: Alert and oriented to person, place, and time. Follows all commands. No focal deficits, speech is clear and fluent. <Pedro Luis Orozco MD - Last Filed: 02/12/25 20:27> Course Vital Signs Vital signs: Vital Signs Temperature 97.8 F 02/12/25 14:31 Pulse Rate 66 02/12/25 14:31 Respiratory Rate 16 02/12/25 14:31 Blood Pressure 143/71 H 02/12/25 14:31 Pulse Oximetry 100 02/12/25 14:31 Temperature 97.8 F 02/12/25 14:31 Pulse Rate 66 02/12/25 14:31 Respiratory Rate 16 02/12/25 14:31 Blood Pressure 143/71 H 02/12/25 14:31 Pulse Oximetry 100 02/12/25 14:31 <Korin Maharaj PA-C - Last Filed: 02/12/25 14:37> Vital Signs Temperature 97.8 F 02/12/25 14:31 Pulse Rate 66 02/12/25 14:31 Respiratory Rate 16 02/12/25 14:31 Blood Pressure 143/71 H 02/12/25 14:31 Pulse Oximetry 100 02/12/25 14:31 Temperature 97.8 F 02/12/25 14:31 Pulse Rate 66 02/12/25 14:31 Respiratory Rate 16 02/12/25 14:31 Blood Pressure 143/71 H 02/12/25 14:31 Pulse Oximetry 100 02/12/25 14:31 <Pedro Luis Orozco MD - Last Filed: 02/12/25 20:27> MDM - Weakness MDM Narrative Medical decision making narrative: The patient was evaluated by myself in the emergency department. History is obtained from patient who is an independent historian and physical exam was performed. External medical records were reviewed at this time. IV was established and pertinent tests were ordered. Patient was administered 1 L IV fluid bolus with normal saline. EKG was obtained which revealed sinus bradycardia rate of 59 beats per minute. No ST changes, T wave inversions or evidence of acute ischemia. EKG was independently interpreted by me and is currently pending official cardiology read. Laboratory results obtained revealing no acute process. Imaging studies obtained included CXR which was independently interpreted by me revealing no acute cardiopulmonary process, which is pending final radiology interpretation. Differential diagnosis considerations include in addition, electrolyte derangements, acute viral syndrome, infectious process such as pneumonia. Comorbidities impacting this visit include none. I have evaluated and discussed social determinants of health with the patient that could potentially impact subsequent diagnosis and treatment plans. On repeat assessment of the patient, reevaluation revealed that the patient is doing well and is in no acute distress. Patient symptoms have improved since she arrived to our emergency department. Repeat vital signs were all reviewed and noted to be stable. Differential diagnosis and treatment plan were discussed with the patient at bedside. Patient agrees with discussion and after shared medical decision making agrees with discharge. All questions were answered to the patient's satisfaction. Patient will follow up with her lathe operator contact lens in 3-5 days. Patient was provided with strict return precautions and instructed to return to the emergency department if any new or worsening symptoms develop. The patient was discharged in stable condition. <Pedro Luis Orozco MD - Last Filed: 02/12/25 20:27> Lab Data Result diagrams: 02/12/25 18:19 02/12/25 18:19 <Korin Maharaj PA-C - Last Filed: 02/12/25 14:37> Labs: Lab Results 02/12/25 Range/Units 18:19 WBC 7.8 (4.5-10.0) K/mm3 RBC 4.24 (4.2-5.4) M/mm3 Hgb 10.7 L (12.0-15.0) g/dL Hct 33.9 L (37.0-47.0) % MCV 80.0 (80-100) fl MCH 25.2 L (26-34) pg MCHC 31.6 L (32-36) g/dl RDW 16.1 H (11.5-14.5) % Plt Count 221 (150-375) k/mm3 MPV 8.7 (7.4-10.4) fl Immature Gran % (Auto) 0.4 (0-0.5) % Neut % (Auto) 72.4 (45.5-73.1) % Lymph % (Auto) 18.7 (18.3-44.2) % Panola % (Auto) 5.4 (2.6-8.5) % Eos % (Auto) 2.6 (0-4.4) % Baso % (Auto) 0.5 (0.2-1.2) % Lymph # (Auto) 1.45 (0.9-3.2) K/mm3 Pan[place] # (Auto) 0.4 (0.1-0.6) K/mm3 Eos # (Auto) 0.2 (0-0.3) K/mm3 Baso # (Auto) 0.0 (0.0-0.1) K/mm3 Abs Immat Gran (auto) 0.03 (0.00-0.031) K/mm3 Absolute Neuts (auto) 5.6 (1.3-6.7) K/mm3 Absolute Nucleated RBC 0.000 (0.0-0.012) K/mm3 Nucleated RBC % 0.0 (0.0-0.2) % Sodium 136 L (137-145) mmol/L Potassium 4.4 (3.4-5.0) mmol/L Chloride 104 (98-107) mmol/L Carbon Dioxide 23 (22-30) mmol/L Anion Gap 9 (4-12) mmol/L BUN 14 (7-17) mg/dL Creatinine 1.00 (0.7-1.0) mg/dL Estim Creat Clear Calc 82 ml/min Estimated GFR > 60 (59 - ) Glucose 94 (65-110) mg/dL Calcium 9.0 (8.4-10.2) mg/dL Magnesium 2.0 (1.6-2.3) mg/dL Total Bilirubin 0.3 (0.2-1.3) mg/dL AST 23 (14-36) U/L ALT 16 (6-35) U/L Alkaline Phosphatase 70 (38-126) U/L Total Creatine Kinase 77 (30-135) U/L Troponin I < 0.012 (0.000-0.034) ng/mL Total Protein 7.8 (6.3-8.2) g/dL Albumin 4.0 (3.5-5.1) g/dL Lipase 115 (23-300) U/L TSH (Reflex) 1.510 (0.465-4.68) uIU/mL <Korin Maharaj PA-C - Last Filed: 02/12/25 14:37> Lab Results 02/12/25 Range/Units 18:19 WBC 7.8 (4.5-10.0) K/mm3 RBC 4.24 (4.2-5.4) M/mm3 Hgb 10.7 L (12.0-15.0) g/dL Hct 33.9 L (37.0-47.0) % MCV 80.0 (80-100) fl MCH 25.2 L (26-34) pg MCHC 31.6 L (32-36) g/dl RDW 16.1 H (11.5-14.5) % Plt Count 221 (150-375) k/mm3 MPV 8.7 (7.4-10.4) fl Immature Gran % (Auto) 0.4 (0-0.5) % Neut % (Auto) 72.4 (45.5-73.1) % Lymph % (Auto) 18.7 (18.3-44.2) % Panola % (Auto) 5.4 (2.6-8.5) % Eos % (Auto) 2.6 (0-4.4) % Baso % (Auto) 0.5 (0.2-1.2) % Lymph # (Auto) 1.45 (0.9-3.2) K/mm3 Panola # (Auto) 0.4 (0.1-0.6) K/mm3 Eos # (Auto) 0.2 (0-0.3) K/mm3 Baso # (Auto) 0.0 (0.0-0.1) K/mm3 Abs Immat Gran (auto) 0.03 (0.00-0.031) K/mm3 Absolute Neuts (auto) 5.6 (1.3-6.7) K/mm3 Absolute Nucleated RBC 0.000 (0.0-0.012) K/mm3 Nucleated RBC % 0.0 (0.0-0.2) % Sodium 136 L (137-145) mmol/L Potassium 4.4 (3.4-5.0) mmol/L Chloride 104 (98-107) mmol/L Carbon Dioxide 23 (22-30) mmol/L Anion Gap 9 (4-12) mmol/L BUN 14 (7-17) mg/dL Creatinine 1.00 (0.7-1.0) mg/dL Estim Creat Clear Calc 82 ml/min Estimated GFR > 60 (59 - ) Glucose 94 (65-110) mg/dL Calcium 9.0 (8.4-10.2) mg/dL Magnesium 2.0 (1.6-2.3) mg/dL Total Bilirubin 0.3 (0.2-1.3) mg/dL AST 23 (14-36) U/L ALT 16 (6-35) U/L Alkaline Phosphatase 70 (38-126) U/L Total Creatine Kinase 77 (30-135) U/L Troponin I < 0.012 (0.000-0.034) ng/mL Total Protein 7.8 (6.3-8.2) g/dL Albumin 4.0 (3.5-5.1) g/dL Lipase 115 (23-300) U/L TSH (Reflex) 1.510 (0.465-4.68) uIU/mL <Pedro Luis Orozco MD - Last Filed: 02/12/25 20:27> Discharge Plan Discharge Clinical Impression: Heart palpitations <Korin Maharaj PA-C - Last Filed: 02/12/25 14:37> Patient Disposition: Home <Korin Maharaj PA-C - Last Filed: 02/12/25 14:37> Condition: Improved <Korin Maharaj PA-C - Last Filed: 02/12/25 14:37> Instructions: Antibiotic Form, Heart Palpitations (DC) <Korin Maharaj PA-C - Last Filed: 02/12/25 14:37> Additional Instructions: Please follow-up with your lathe operator contact lens within the next 3-5 days. Return to the emergency department if any new or worsening symptoms develop. <Korin Maharaj PA-C - Last Filed: 02/12/25 14:37> Patient Language: Bhutanese <Korin Maharaj PA-C - Last Filed: 02/12/25 14:37> Prescriptions: No Action aripiprazole 30 mg tablet 30 mg PO QHS biotin 10,000 mcg capsule 1 mcg PO DAILY hydroxyzine HCl 10 mg tablet 10 mg PO QHS norgestimate-ethinyl estradiol [Estarylla] 0.25-35 mg-mcg tablet 1 tablet PO DAILY Qty: 84 1RF Zepbound 2.5 mg/0.5 mL pen injector 2.5 mg subcut WEEKLY Qty: 2 0RF Rx Instructions: for 4 weeks propranolol 160 mg capsule,extended release 24 hr 160 mg PO HS lithium carbonate 150 mg capsule 150 mg PO BID melatonin 3 mg tablet 3 mg PO HS PRN (Reason: Sleep) fluvoxamine 100 mg tablet 100 mg PO DAILY divalproex 500 mg tablet extended release 24 hr 500 mg PO BID ferrous sulfate 325 mg (65 mg iron) tablet,delayed release (DR/EC) 325 mg PO DAILY Qty: 90 3RF (DME) APAP See Rx Instructions .Route .MEDSUPPLY Qty: 1 0RF Rx Instructions: As directed APAP - 5-15 cm of water and supplies <Korin Maharaj PA-C - Last Filed: 02/12/25 14:37> Follow-up/Referrals: Eris Johnson MD [Primary Care Provider] - 3 Days <Korin Maharaj PA-C - Last Filed: 02/12/25 14:37> Time of Disposition: 20:27 <Korin Maharaj PA-C - Last Filed: 02/12/25 14:37> 20:27 <Pedro Luis Orozco MD - Last Filed: 02/12/25 20:27>
--- OUTSIDE RECORDS SUMMARY | 2025-02-12 15:26 | XMS_ITS | Clinical Summary ---
Author Organization [facility] Care Team Providers Care Lab Manager Name Role Phone Unavailable Primary Care Provider Unavailabl e Social History Tobacco Use Types Packs/Day Years Used Date Smoking Tobacco: Never Assessed Comments Unknown Sex and Gender Information Value Date Recorded Sex Assigned at Not on file Legal Sex Female 9:20 AM BYPRODUCTS SUPERVISOR Gender Identity Not on file Sexual [...]
--- OUTSIDE RECORDS SUMMARY | 2025-02-12 15:26 | XMS_ITS | Encounter Summary ---
Author Organization [facility] Address [address] [place] [address] Care Team Providers Care Software Engineer Developer Name Role Phone Flor Zabala NP Primary Care Provider [phone] Flora Ames MD Unavailable [phone] Jimmy Raphael Primary Care Provider Unavail able Encounter Details Date Type Department Care Team (Late st Contact Info) Description 06/21/2021 MyChart Message Enc [facility] Medical Group Multispecialty Care - 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 No / Unsure 06/22/2021 2:59 PM CORK SORTER documented as of this encounter Plan of Treatment Not on file documented as of this encounter Visit Diagnoses Not on filedocumented in this encounter Care Teams Software Engineer Developer Relationship Specialty Start Date End Date Flor Zabala NP PCP - General FAMILY PRACTICE 01/05/16 09/24/22 Jimmy Raphael PA [facility]. [id number] [place] [address] PCP - General PHYSICIAN ACCOUNTS RECEIVABLE COORDINATOR 09/25/22 Flora Ames MD [facility]. [id number] [place] [address] Julio C Power Electronics Research Engineer CARDIOVASCULAR DISEASE 05/02/17 documented as of this encounter
--- OUTSIDE RECORDS SUMMARY | 2025-02-12 15:26 | XMS_ITS | Clinical Summary ---
Author Organization [facility] Address [address] [facility] [place] [address] Phone Care Team Providers Care Spacer Type Bar And Segment Name Role Phone Kassidy Miller MD Primary Care Provider [phone] Allergies Active Allergy Reactions Criticality Noted Date [...] Comments Blood Pressure 131/75 06/17/2018 6:45 PM RN SOCIAL WORK Pulse 77 06/17/2018 6:45 PM RN SOCIAL WORK Temperature 36.7 C (98.1 F) 06/17/2018 2:07 PM RN SOCIAL WORK Respiratory Rate 18 06/17/2018 2:07 PM RN SOCIAL WORK Oxygen Saturation 99% 06/17/2018 6:45 PM RN SOCIAL WORK Inhaled Oxygen Concentration - - Weight 82.6 kg (182 lb) 06/17/2018 2:07 PM RN SOCIAL WORK Height 158.8 cm (5' 2.5) 06/17/2018 2:07 PM RN SOCIAL WORK Body Mass Index 32.76 06/17/2018 2:07 PM RN SOCIAL WORK Plan of Treatment Health Maintenance Due Date Last Done Comments DTAP/TDAP/TD VACCINES (1 - Tdap) 2012 HEPATITIS B VACCINES (1 of 3 - 19+ 3-dose series) 2012 HPV/Cotest (21-29) 2014 CERVICAL CANCER SCREENING 12/21/2023 HPV/Cotest (30-65) 12/21/2023 PAP SMEAR 12/21/2023 INFLUENZA VACCINE (#1) 2025 04/19/2018 HPV VACCINES Aged Out No longer eligi ble based on patient's age to complete this topic Insurance BS BLUE ACCESS/TRUE BLUE PPO Care Teams Spacer Type Bar And Segment Relationship Specialty Start Date End Date Kassidy Miller MD [address] [phone] PCP - General Genetics 05/22/18
--- OUTSIDE RECORDS SUMMARY | 2025-02-12 15:26 | XMS_ITS | Clinical Summary ---
Author Organization [facility] Address [address] [place] [address] Care Team Providers Care Emergency Room Doctor Name Role Phone Flora Ames MD Unavailable [phone] Jimmy Raphael Primary Care Provider Unavail [...] Rotator cuff tendonitis, right 01/04/2021 Subaortic stenosis ([facility]) 05/07/2017 Palpitations 05/07/2017 Congenital heart disease ([facility]) Encounters Date Type Department Care Team Description 01/30/2025 Hospital Encounter [facility] [place] [place] [address] [id number] Nicole Dick MD 01/20/2025 8:20 AM CDT - 01/20/2025 8:40 AM CDT Surgery [facility] [place]ventional [place] [address] [id number] Nicole Dick MD INJECTION EPIDURAL [id number] 1 01/20/2025 7:57 AM CDT - 01/20/2025 9:13 AM CDT Hospital Encounter [facility] [place]ventional [place] [address] [id number] Nicole Dick MD Discharge Disposition: Home or Self Care (Routine Discharge) 01/20/2025 Travel 12/11/2024 Prep for Procedure [facility] Interventional [place] [address] [id number] Robbie Walker, SUPERVISOR PLASMA from Last 3 Months Family History Medical [...] 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 [facility] [address] [place] [address] PCP - General PHYSICIAN PARCEL CARRIER 09/25/22 Flora Ames MD [facility]. [facility] [address] [place] [address] [place] Sandblaster Paint Sprayer CARDIOVASCULAR DISEASE 05/02/17
--- OUTSIDE RECORDS SUMMARY | 2025-02-12 15:26 | XMS_ITS | Encounter Summary ---
Author Organization [facility] Address [address] [place] [address] Care Team Providers Care Project Drilling Engineer Name Role Phone Flor Zabala NP Primary Care Provider [phone] Flora Ames MD Unavailable [phone] Jimmy Raphael Primary Care Provider Unavail able Encounter Details Date Type Department Care Team (Late st Contact Info) Description 03/12/2019 Discharge [facility] [email or web address] [facility] Physical Therapy [address] [place] [address] Brandi Victoria, PT Social History Tobacco Use [...] 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. [address] [place] [address] PCP - General PHYSICIAN FIELD MARKETING MANAGER 09/25/22 Flora Ames MD Three [facility]. [facility] [address] [place], [place] [id number] Emmalena Manager Grocery CARDIOVASCULAR DISEASE 05/02/17 documented as of this encounter
--- OUTSIDE RECORDS SUMMARY | 2025-02-12 15:26 | XMS_ITS | Encounter Summary ---
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 Answer Date of Assessment Author Status No 07/15/2021 6:11 PM ACCOUNTING FILE CLERK Activ e * Do you have serious [...] 8:20 AM Selam Caicedo RN Active * Evangeline Suicide Severity Rating Scale (Screener/Recent Self-Report) Question [...] on filedocumented in this encounter Care Teams Sales Representative Public Utilities Relationship Specialty Start Date End Date Jimmy Raphael PA [facility] [address] [place] [address] PCP - General PHYSICIAN LEATHER NOVELTY PARTS CUTTER 09/25/22 Flora Ames MD [facility]. [address] [place] [address] Julio C Fire Protection Specialist CARDIOVASCULAR DISEASE 05/02/17 documented as of this encounter
--- OUTSIDE RECORDS SUMMARY | 2025-02-12 15:26 | XMS_ITS | Encounter Summary ---
Author Organization [facility] Address [address] [place] [id number] Care Team Providers Care Home Health Clinical Supervisor Name Role Phone Flor Zabala NP Primary Care Provider [phone] Flora Ames MD Unavailable [phone] Jimmy Raphael Primary Care Provider Unavail able Encounter Details Date Type Department Care Team (Late st Contact Info) Description 04/30/2017 Abstract [facility] AT [address] [address] Yumiko Fletcher, COMMISSION AGENT [employer]OCK Social History Tobacco Use Types Packs/Day Years [...] on filedocumented in this encounter Care Teams Home Health Clinical Supervisor Relationship Specialty Start Date End Date Flor Zabala NP PCP - General FAMILY PRACTICE 01/05/16 09/24/22 Jimmy Raphael PA [address] [facility] [address] [place] [address] PCP - General PHYSICIAN PAINTER AND BODY MECHANIC APPRENTICE 09/25/22 Flora Ames MD [address] [facility] [address] [place] [address] Julio C Retort Loader CARDIOVASCULAR DISEASE 05/02/17 documented as of this encounter
--- OUTSIDE RECORDS SUMMARY | 2025-02-12 15:26 | XMS_ITS | Encounter Summary ---
Author Organization [facility] Address [address] [place] [address] Care Team Providers Care Healthcare Business Analyst Name Role Phone Flor Zabala NP Primary Care Provider [phone] Flora Ames MD Unavailable [phone] Jimmy Raphael Primary Care Provider Unavail able Encounter Details Date Type Department Care Team (Late st Contact Info) Description 01/20/2019 Discharge [facility] Physical Therapy [address] [place] [address] Roberta Vigil, SPRING FLOOR SERVICE WORKER Social History Tobacco Use Types Packs/Day Years [...] Industry Job Start Date Job End Date [employer] Not on file Not on file Not on shannon e documented as of this encounter Plan of Treatment Not on file documented as of this encounter Visit Diagnoses Not on filedocumented in this encounter Care Teams Healthcare Business Analyst Relationship Specialty Start Date End Date Flor Zabala NP PCP - General FAMILY PRACTICE 01/05/16 09/24/22 Jimmy Raphael PA [facility] [address] [place] [address] PCP - General PHYSICIAN SHANK SORTER 09/25/22 Flora Ames MD [facility]. [facility] [address] [place], [place] [id number] [place] [facility] Technician CARDIOVASCULAR DISEASE 05/02/17 documented as of this encounter
[2025-02-12 18:26] LABS: Hematocrit 33.9 % (37.0-47.0); Hemoglobin 10.7 g/dL (12.0-15.0); Immature Granulocyte Percent A 0.4 % (0-0.5); Lymphocytes Absolute Auto 1.45 K/mm3 (0.9-3.2); Mean Corpuscular HGB Conc 31.6 g/dl (32-36); Mean Corpuscular Hemoglobin 25.2 pg (26-34); Mean Corpuscular Volume 80.0 fl (80-100); Nucleated Red Blood Cells Absolute Auto 0.000 K/mm3 (0.0-0.012); Nucleated Red Blood Cells Perc 0.0 % (0.0-0.2); Platelet Count Result 221 k/mm3 (150-375); Red Blood Count 4.24 M/mm3 (4.2-5.4); White Blood Count 7.8 K/mm3 (4.5-10.0)
[2025-02-12 18:36] LABS: Alanine Aminotransferase 16 U/L (6-35); Albumin Level 4.0 g/dL (3.5-5.1); Alkaline Phosphatase 70 U/L (38-126); Anion Gap 9 mmol/L (4-12); Aspartate Amino Transferase 23 U/L (14-36); Bilirubin,Total 0.3 mg/dL (0.2-1.3); Blood Urea Nitrogen 14 mg/dL (7-17); Calcium 9.0 mg/dL (8.4-10.2); Carbon Dioxide 23 mmol/L (22-30); Chloride 104 mmol/L (98-107); Creatine Kinase 77 U/L (30-135); Estimated CRCL calculation 82 ml/min; Estimated Glomerular Filt Rate > 60; Glucose 94 mg/dL (65-110); Lipase 115 U/L (23-300); Magnesium 2.0 mg/dL (1.6-2.3); Potassium 4.4 mmol/L (3.4-5.0); Sodium 136 mmol/L (137-145); Total Protein 7.8 g/dL (6.3-8.2)
[2025-02-12 18:47] LABS: Troponin I < 0.012 ng/mL (0.000-0.034)
[2025-02-12 19:22] LABS: Thyroid Stimulating Hormone Reflex 1.510 uIU/mL (0.465-4.68)
[2025-02-12 20:26] VITALS: BP 118/61; PULSE 60; RESP 17; O2SAT 98
[2025-02-12 20:27] VITALS: O2SAT 98
[2025-02-12 20:27] LABS: BEDSIDEPREGUCG Negative (Negative)
[2025-02-12] MEDS: SODIUM CHLORIDE 0.9% IV 1,000 ML 999 ML IV CONT (20:28)
[2025-02-12 20:30] LABS: Add Urine Microscopic? NO; Appearance Urine Clear (Clear); Glucose Urine UA Negative (Negative); Leukocyte Esterase Ur Negative LEU/UL (Negative); Nitrate Urine Negative (Negative); Specific Grav Ur 1.030 (1.001-1.035)
[2025-02-12 21:42] VITALS: BP 124/67; PULSE 80; RESP 16; O2SAT 100
== END 2025-02-12 21:43 | disposition home or self-care (01) ==
PROVIDERS: Physician Assistant; Emergency Provider Emergency Medicine; PCP Family Medicine
DX: R00.2 Palpitations (principal)
CPT/HCPCS: 36415; 71046; 80053; 81003; 81025; 82550; 83690; 83735; 84443; 84484; 85025; 93005; 96360; 99284; J7030

== ENCOUNTER 2025-06-10 15:10 | Emergency (ER) | payer OTHER, SELFPAY ==
--- NOTE | ~2025-06-10 | XR_ITS ---
XR knee RT min 4V 06/10/2025 17:18 INDICATION: Right knee pain. PROCEDURE: 4 views right knee COMPARISON: No prior studies for comparison. FINDINGS: Fracture, dislocation or subluxation is not identified. No joint effusion. The soft tissues appear within normal limits. No foreign bodies are identified. IMPRESSION: 1: NO ACUTE BONE OR JOINT ABNORMALITY IDENTIFIED. Reviewed, dictated and finalized at location O. INAL OPERATOR
[2025-06-10 15:13] VITALS: BP 142/62; PULSE 74; RESP 16; TEMP 36.3; O2SAT 100
--- NOTE | 2025-06-10 16:57 | ED.GENADULT ---
HPI - General Adult General Chief complaint: Extremity Injury, Lower Stated complaint: RIGHT KNEE PAIN Time Seen by Provider: 06/10/25 16:57 Focused HPI: 29 year old female presenting after a fall last night. She states she landed on her right knee. Pain woke her up in the night. Endorses a burning pain around her patella, numbness/tingling in her toes, and a cold feeling along distal bridges. GENERAL: Well-appearing, well-nourished, and in no acute distress. HEAD: Normocephalic, atraumatic. CHEST: Clear to auscultation. ?No respiratory distress. HEART: Regular rate and rhythm.? NEURO: ?Alert and oriented x3. Patient screened in triage and initial orders placed.? ?Additional care and disposition to be based upon?diagnostic testing and treatment. Related Data Home Medications ?Medication ?Instructions ?Recorded ?Confirmed ?Last Taken ?Type divalproex 500 mg tablet,extended 500 mg PO BID 05/15/24 05/27/25 05/29/24 20:00 History release 24 hr fluvoxamine 100 mg tablet 100 mg PO DAILY 05/15/24 05/27/25 05/29/24 20:00 History lithium carbonate 150 mg capsule 150 mg PO BID 05/15/24 05/27/25 05/29/24 20:00 History melatonin 3 mg tablet 3 mg PO HS PRN Sleep 05/15/24 05/27/25 05/29/24 20:00 History propranolol 160 mg capsule,24 160 mg PO HS 05/15/24 05/27/25 05/29/24 20:00 History hr,extended release hydroxyzine HCl 10 mg tablet 10 mg PO QHS 08/19/24 05/27/25 Unknown History paliperidone 3 mg tablet,extended mg PO 05/27/25 05/27/25 Unknown History release 24 hr Allergies Allergy/AdvReac Type Severity Reaction Status Date / Time cefixime Allergy Mild Verified 05/13/25 10:40 erythromycin base Allergy Mild Verified 05/13/25 10:40 amoxicillin Allergy Hives Verified 05/13/25 10:40 clavulanic acid (From Allergy Hives Verified 05/13/25 10:40 Augmentin) rifamycin Allergy Hives Verified 05/13/25 10:40 morphine AdvReac Vomiting Verified 05/13/25 10:40 AMOXICILLIN TRIHYDRATE Allergy Mild Uncoded 05/13/25 10:40 POTASSIUM CLAVULANATE Allergy Mild Uncoded 05/13/25 10:40 [facility] Past Medical History Medical History Sinus tachycardia Morbid obesity with BMI of 40.0-44.9, adult PCOS (polycystic ovarian syndrome) Chronic low back pain MISA (obstructive sleep apnea) (~2018) Subvalvar aortic stenosis (~1995) Bipolar 1 disorder OCD (obsessive compulsive disorder) Depression Anxiety Anemia Surgical History Surgical History History of aortic valvuloplasty x3 - 1998,2005,2019 History of tubal ligation (~2023) Family History Family History Mother Depression Hypertension Father Depression Diabetes mellitus Sibling Asthma Depression Grandparent Diabetes mellitus Heart disease Social History Social History Alcohol intake: never Substance use: never Substance use type: does not use Do You Feel Safe in your Home?: Yes Lack of Transportation: No Lack of Food: Never True Current Housing: I Have Housing Concerned About Future Housing: No Difficulty Paying Gas/Electric Bills: No Difficulty Paying for Meds: No Currently Unemployed: No Education: Trade/Vocational Certificate Difficulty w/ Childcare or Family Care: No Living arrangements: with family Occupation/Education: occupation Gender identity (if verbalized by the patient): Female Spiritual care concerns: No Agree to blood products: Yes Course Vital Signs Vital signs: Vital Signs Temperature 97.4 F L 06/10/25 15:13 Pulse Rate 74 06/10/25 15:13 Respiratory Rate 16 06/10/25 15:13 Blood Pressure 142/62 H 06/10/25 15:13 Pulse Oximetry 100 06/10/25 15:13 Oxygen Delivery Room Air 06/10/25 15:13 Temperature 97.4 F L 06/10/25 15:13 Pulse Rate 74 06/10/25 15:13 Respiratory Rate 16 06/10/25 15:13 Blood Pressure 142/62 H 06/10/25 15:13 Pulse Oximetry 100 06/10/25 15:13 Oxygen Delivery Room Air 06/10/25 15:13 Medical Decision Making Vital Signs Vital Signs: Vital Signs Temperature 97.4 F L 06/10/25 15:13 Pulse Rate 74 06/10/25 15:13 Respiratory Rate 16 06/10/25 15:13 Blood Pressure 142/62 H 06/10/25 15:13 Pulse Oximetry 100 06/10/25 15:13 Oxygen Delivery Room Air 06/10/25 15:13 Temperature 97.4 F L 06/10/25 15:13 Pulse Rate 74 06/10/25 15:13 Respiratory Rate 16 06/10/25 15:13 Blood Pressure 142/62 H 06/10/25 15:13 Pulse Oximetry 100 06/10/25 15:13 Oxygen Delivery Room Air 06/10/25 15:13 Discharge Plan Discharge Clinical Impression: Knee sprain Qualifiers: Encounter type: initial encounter Involved ligament of knee: unspecified ligament Laterality: right Qualified Code(s): S83.91XA - Sprain of unspecified site of right knee, initial encounter Patient Disposition: Home Condition: Stable Instructions: Knee Sprain (ED) Additional Instructions: Return to the ER if you experience fever, redness and swelling of your extremity, numbness or any other symptoms that are concerning to you Wear knee immobilizer and use crutches. No weight on the affected leg. Ice and elevate extremity. Pain medication as needed and directed. Follow up with orthopedics for further care. Patient Language: Zambian Prescriptions: No Action hydroxyzine HCl 10 mg tablet 10 mg PO QHS paliperidone 3 mg tablet extended release 24hr PO propranolol 160 mg capsule,extended release 24 hr 160 mg PO HS lithium carbonate 150 mg capsule 150 mg PO BID melatonin 3 mg tablet 3 mg PO HS PRN (Reason: Sleep) fluvoxamine 100 mg tablet 100 mg PO DAILY divalproex 500 mg tablet extended release 24 hr 500 mg PO BID (DME) APAP See Rx Instructions .Route .MEDSUPPLY Qty: 1 0RF Rx Instructions: As directed APAP - 5-15 cm of water and supplies norgestimate-ethinyl estradiol [Estarylla] 0.25-0.035 mg tablet 1 tablet PO DAILY Qty: 84 1RF Follow-up/Referrals: Zach Chandler MD [Physician, Orthopedics] Eris Johnson MD [Primary Care Provider, Family Practice]
--- NOTE | 2025-06-10 18:00 | ED.LOWEXIN ---
HPI - Extremity Injury (Lower) General Chief Complaint: Extremity Injury, Lower Stated Complaint: RIGHT KNEE PAIN Time Seen by Provider: 06/10/25 16:57 Source: patient Mode of arrival: ambulatory Limitations: no limitations History of Present Illness HPI Narrative: This is a 29 year old female that presents to the ER for right knee injury. Reports yesterday she fell and landed on her knee. Reports feeling a pop. Reports swelling, pain with ambulation. Denies decreased ROM or numbness. Related Data Home Medications ?Medication ?Instructions ?Recorded ?Confirmed ?Last Taken ?Type divalproex 500 mg tablet,extended 500 mg PO BID 05/15/24 05/27/25 05/29/24 20:00 History release 24 hr fluvoxamine 100 mg tablet 100 mg PO DAILY 05/15/24 05/27/25 05/29/24 20:00 History lithium carbonate 150 mg capsule 150 mg PO BID 05/15/24 05/27/25 05/29/24 20:00 History melatonin 3 mg tablet 3 mg PO HS PRN Sleep 05/15/24 05/27/25 05/29/24 20:00 History propranolol 160 mg capsule,24 160 mg PO HS 05/15/24 05/27/25 05/29/24 20:00 History hr,extended release hydroxyzine HCl 10 mg tablet 10 mg PO QHS 08/19/24 05/27/25 Unknown History paliperidone 3 mg tablet,extended mg PO 05/27/25 05/27/25 Unknown History release 24 hr Allergies Allergy/AdvReac Type Severity Reaction Status Date / Time cefixime Allergy Mild Verified 05/13/25 10:40 erythromycin base Allergy Mild Verified 05/13/25 10:40 amoxicillin Allergy Hives Verified 05/13/25 10:40 clavulanic acid (From Allergy Hives Verified 05/13/25 10:40 Augmentin) rifamycin Allergy Hives Verified 05/13/25 10:40 morphine AdvReac Vomiting Verified 05/13/25 10:40 AMOXICILLIN TRIHYDRATE Allergy Mild Uncoded 05/13/25 10:40 POTASSIUM CLAVULANATE Allergy Mild Uncoded 05/13/25 10:40 Review of Systems Review of Systems: All systems reviewed & are unremarkable except as noted in HPI and below PMFSH Past Medical History Medical History Sinus tachycardia Morbid obesity with BMI of 40.0-44.9, adult PCOS (polycystic ovarian syndrome) Chronic low back pain MISA (obstructive sleep apnea) (~2018) Subvalvar aortic stenosis (~1995) Bipolar 1 disorder OCD (obsessive compulsive disorder) Depression Anxiety Anemia Surgical History Surgical History History of aortic valvuloplasty x3 - 1998,2005,2019 History of tubal ligation (~2023) Family History Family History Mother Depression Hypertension Father Depression Diabetes mellitus Sibling Asthma Depression Grandparent Diabetes mellitus Heart disease Social History Social History Alcohol intake: never Substance use: never Substance use type: does not use Do You Feel Safe in your Home?: Yes Lack of Transportation: No Lack of Food: Never True Current Housing: I Have Housing Concerned About Future Housing: No Difficulty Paying Gas/Electric Bills: No Difficulty Paying for Meds: No Currently Unemployed: No Education: Trade/Vocational Certificate Difficulty w/ Childcare or Family Care: No Living arrangements: with family Occupation/Education: occupation Gender identity (if verbalized by the patient): Female Spiritual care concerns: No Agree to blood products: Yes Exam Narrative: GENERAL: Well-appearing, well-nourished, and in no acute distress. HEAD: Normocephalic, atraumatic. EYES: EOMI. EXTREMITIES: Normal range of motion. No obvious deformity. Normal DP pulse. Normal sensation SKIN: Warm, dry, no rash. NEURO: No focal deficits. Alert and oriented x3. PSYCH: Normal mood and affect Course Vital Signs Vital signs: Vital Signs Temperature 97.4 F L 06/10/25 15:13 Pulse Rate 74 06/10/25 15:13 Respiratory Rate 16 06/10/25 15:13 Blood Pressure 142/62 H 06/10/25 15:13 Pulse Oximetry 100 06/10/25 15:13 Oxygen Delivery Room Air 06/10/25 15:13 Temperature 97.4 F L 06/10/25 15:13 Pulse Rate 74 06/10/25 15:13 Respiratory Rate 16 06/10/25 15:13 Blood Pressure 142/62 H 06/10/25 15:13 Pulse Oximetry 100 06/10/25 15:13 Oxygen Delivery Room Air 06/10/25 15:13 MDM - Extremity Injury (Lower) MDM Narrative Medical decision making narrative: Patient presents emergency department for right knee pain after an injury yesterday. She is neurovascularly intact. Right knee x-ray without acute osseous abnormalities. Patient placed knee immobilizer and given crutches. Will be given follow-up Orthopedics. She was given warnings to return the ER Differential Diagnosis Differential diagnosis: Likely acute internal derangement of knee Imaging Data Radiologist's impression: ITS Impressions Knee X-Ray 06/10/25 17:20 IMPRESSION: 1: NO ACUTE BONE OR JOINT ABNORMALITY IDENTIFIED. Critical Care Time Critical Care Time Critical Care Time: No Discharge Plan Discharge Clinical Impression: Knee sprain Qualifiers: Encounter type: initial encounter Involved ligament of knee: unspecified ligament Laterality: right Qualified Code(s): S83.91XA - Sprain of unspecified site of right knee, initial encounter Patient Disposition: Home Condition: Stable Instructions: Knee Sprain (ED) Additional Instructions: Return to the ER if you experience fever, redness and swelling of your extremity, numbness or any other symptoms that are concerning to you Wear knee immobilizer and use crutches. No weight on the affected leg. Ice and elevate extremity. Pain medication as needed and directed. Follow up with orthopedics for further care. Patient Language: Cuban Prescriptions: No Action hydroxyzine HCl 10 mg tablet 10 mg PO QHS paliperidone 3 mg tablet extended release 24hr PO propranolol 160 mg capsule,extended release 24 hr 160 mg PO HS lithium carbonate 150 mg capsule 150 mg PO BID melatonin 3 mg tablet 3 mg PO HS PRN (Reason: Sleep) fluvoxamine 100 mg tablet 100 mg PO DAILY divalproex 500 mg tablet extended release 24 hr 500 mg PO BID (DME) APAP See Rx Instructions .Route .MEDSUPPLY Qty: 1 0RF Rx Instructions: As directed APAP - 5-15 cm of water and supplies norgestimate-ethinyl estradiol [Estarylla] 0.25-0.035 mg tablet 1 tablet PO DAILY Qty: 84 1RF Follow-up/Referrals: Zach Chandler MD [Physician, Orthopedics] Eris Johnson MD [Primary Care Provider, Family Practice]
--- OUTSIDE RECORDS SUMMARY | 2025-06-11 14:46 | XMS_ITS | Clinical Summary ---
Author Organization [facility] Address [address] [place] [address] Care Team Providers Care Urology Physician Assistant Name Role Phone Angie Velazquez MD Unavailable [phone] Stephanie Anderson FLIGHT OPERATIONS SPECIALIST Unavailable [phone] Roberta Johnson MD Primary Care Provider Allergies Active Allergy Reactions Criticality Noted Date Comments Amoxicillin Rash Medium 04/15/2025 Amoxicillin-Pot Clavulanate Unknown,Hives Medium 07/11 Cefixime Unknown,Hives High 07/11/2011 Clavulanic Acid Hives Medium 08/19/2024 Erythromycin Hives High 05/04/2017 Erythromycin Base Hives,Rash Medium 07/11/2011 Lamotrigine Itching Low 09/03/2020 Morphine Nausea & Vomiting,Vomiting Low 08/19/2024 Penicillins Hives High 07/11/2011 Rifamycin Hives Medium 08/19/2024 Medications melatonin 10 mg tablet Take 1 tablet (10 mg total) by mouth nightly as needed for sleep 02/22/2024 Active divalproex ER (DEPAKOTE ER) 500 mg 24 hr tablet Take 1 tablet (500 mg total) by mouth 2 (two) times a day 04/10/2024 Active lithium 150 mg capsule Take 1 capsule (150 mg total) by mouth 2 (two) times a day 04/24/2024 Active fluvoxaMINE (LUVOX) 100 mg tablet Take 1 tablet (100 mg total) by mouth nightly 04/10/2024 Active hydrOXYzine (ATARAX) 10 mg tablet Take 1 tablet (10 mg total) by mouth 2 (two) times a day 05/06/2024 Active Invega 3 mg 24 hr tablet Take 1 tablet (3 mg total) by mouth every morning 08/26/2024 Active norgestimate-et hinyl estradioL (ORTHO-CYCLEN) 0.25-0.035 mg per tablet Take 1 tablet by mouth nightly Active propranolol LA (INDERAL LA) 160 mg 24 hr capsule Take 1 capsule (160 mg total) by mouth nightly Active Active Problems Problem Noted Date Diagnosed Date Lumbar radiculopathy 11/21/2024 Spondylosis of lumbar region without myelopathy or radiculopathy 07/08/2024 Tremor 03/11/2024 Assessment & Plan (03/11/2024 4:41 PM CDT): Mickie is a 28 y.o. female with a history of OCD and Bipolar disorder on [place] and Congenital heart disease on propranolol who [...] Yuli Barker MD Department of Pediatric Neurology, [facility] Division of Movement Disorders Lumbar back [...] Encounters Date Type Department Care Team Description 04/20/2025 Telephone [facility] Medicine Cardiology [facility] 8th [place] [address] [place] [address] Stephen Garg MD 04/15/2025 5:15 PM CDT Office Visit [facility] at [address] [address] Jenise Thomson NP Non-recurrent acute suppurative otitis media of right ear without spontaneous rupture of tympanic membrane (Primary Dx) 04/13/2025 8:15 AM CDT Ancillary Procedure [facility] Cardiology [facility] 8th [place] [address] [place] [address] Subaortic membrane; Palpitations 04/13/2025 Telephone [facility] Cardiology [address] [place] [address] 8th [place] [address] [place] [address] Stephen Garg MD Scheduling Testing/Treatment 04/13/2025 Telephone [facility] Cardiology [address] [place] [address] 8th [place] [address] [place] [address] Stephen Garg MD 04/09/2025 1:30 PM CDT Office Visit [facility] Medicine Cardiology [address] [facility] 8th [place] [address] [place] [address] Stephen Garg MD Subaortic membrane (Primary Dx); Status post resection of fibrous subaortic stenosis; Status post myomectomy; Nonrheumatic aortic valve insufficiency; Obstructive sleep apnea; Palpitations; Class 3 severe obesity due to excess calories without serious comorbidity with body mass index (BMI) of 40.0 to 44.9 in adult 04/09/2025 10:36 AM CDT - 04/09/2025 11:59 PM CDT Hospital Encounter [facility] Cardiac Diagnostic Lab [address] [facility] 8th [place] [address] Subaortic membrane Discharge Disposition: Discharge to home or self care 03/31/2025 10:28 AM CDT - 03/31/2025 2:20 PM CDT Emergency [facility] [place] [facility] [address] [place] [address] Darline Herndon MD Dizziness (Primary Dx) Discharge Disposition: Discharge to home or self care from Last 3 Months Immunizations Immunization Administration Dates Next Due DTaP, Unspecified 12/25/1997, 5,07/06/1994,04/06/1994, 02/03/1994 HPV, Quadrivalent 06/01/2010 HPV9 11/12/2015,05/07/2015 Hep A, Pediatric 03/19/2009,06/11/2008 Hep B, Adolescent or Pediatric 12/04/1997,1993,04/06/1994,02/03/1994 HiB 12/25/1997,07/06/1994,04/06/1994 ,02/03/1994 Influenza, Unspecified 05/02/2022(Deferr ed: Patient Refused),05/07/2015,06/01/2010 MMR 12/25/1997,07/06/1994 Meningococcal ACWY, Unspecified 06/11/2008 Polio, Unspecified 12/25/1997, 5,07/06/1994,04/06/1994, 02/03/1994 Tdap 11/10/2016,03/19/2009,06/11/2008 Varicella 08/22/2011,09/06/1997 Surgical History Surgery Date Site/Laterality Comments SUBAORTIC STENOSIS REPAIR Intiially in 09/1998 ([place] and then in 01/02/06 ([facility]) KONNO PROCEDURE 01/02/2006 modified EXAMINATION UNDER ANESTHESIA 08/12/2018 NAUN TUBAL LIGATION 05/29 CARDIAC SURGERY Medical History Medical History Date Comments Palpitations [...] Abnormal ECG Aortic stenosis Asthma Bipolar disorder Chest pain Kidney infection Disc disorder of lumbar region Lumbar stenosis Mitral valve regurgitation Chronic pain disorder Low back pain Vitamin B12 deficiency ADHD (attention deficit hype ractivity disorder) Sleep apnea Fatigue Obesity Tremors of nervous system Menstrual problem Migraine Vitamin D deficiency Migraines Family History Medical History Relation Name Comments Diabetes Father Willy Ivory Hearing loss Father Willy Ivory Rashes / Skin problems Father Willy Ivory Breast cancer Maternal Grandfather Pal Steve Cancer Maternal Grandfather Pal Steve Hypertension Maternal Grandmother Nasreen Sheppard Arthritis Mother Hilary Ivory Depression Mother Hilary Ivory Hearing loss Mother Hilary Ivory Hyperlipidemia Mother Hilary Ivory Hypertension Mother Hilary Ivory Memory loss Mother Hilary Ivory Miscarriages / Stillbirths Mother Hilary Ivory Irritable bowel syndrome Other 1 Asthma Other 2 Diabetes Other 3 Gallbladder disease Other 4 Lung cancer Other 5 Migraines Other 5 Throat cancer Other 5 oral cancer Other 5 Diabetes Paternal Grandfather Desai Dianelys Heart attack Paternal Grandfather Desai Dianelys Heart disease Paternal Grandfather Desai Dianelys Diabetes Paternal Grandmother Obdulia Dianelys Heart disease Paternal Grandmother Obdulia Dianelys Stroke Paternal Grandmother Obdulia Dianelys Asthma Sister Reena Long Depression Sister Reena Long Rashes / Skin problems Sister Reena Long Relation Name Status Comments Father Willy Ivory Alive Maternal Grandfather Pal Steve Maternal Grandmother Nasreen Sheppard Mother Hilary Ivory Alive Other 1 Other 2 Other 3 Other 4 Other 5 Paternal Grandfather Lloyd Ivory Alive Paternal Grandmother Obdulia Ivory Alive Sister Reena Pfeiffer Alive Social History Tobacco Use Types Packs/Day Years Used Date Smoking Tobacco: Never Smokeless Tobacco: Never Tobacco Cessation:Counseling Given: Not Answered Alcohol Use Standard Drinks/Week Comments No 0 (1 standard drink = 0.6 oz pur e alcohol) AUDIT-C Answer Date Recorded Q1: How often do you have a drink containing alcohol? Never 10/02/2024 Q2: How many drinks containi ng alcohol do you have on a typical day when you are drinking? Patient does not drink Q3: How often do you have si x or more drinks on one occasion? Never 10/02/2024 PHQ-2 Answer Date Recorded PHQ-2 Total Score (If total score is 3 or more points, staff should administer the PHQ-9) 2 08/03/2022 Personal Safety Answer Date Recorded Have you ever been in or are you currently in a harmful physical or emotional relationship or is someone making you feel afraid or unsafe? Denies 03/31/2025 Comments No Sex and Gender Information Value Date Recorded Sex Assigned at Not on file Legal Sex Female 1:47 AM TRANSPORTATION DIRECTOR Gender Identity Not on file Sexual Orientation Not on file Obstetrics History Para Term AB IAB SAB Ectopic Multiple Livin g Live Births 0 0 0 0 0 0 0 0 0 0 0 Comments Menarche 12 Last Filed Vital Signs Vital Sign Reading Time Taken Comments Blood Pressure 112/60 04/15/2025 4:53 PM CDT Pulse 87 04/15/2025 4:53 PM CDT Temperature 36.1 C (97 F) 04/15/2025 4:53 PM CDT Respiratory Rate 18 04/15/2025 4:53 PM CDT Oxygen Saturation 97% 04/15/2025 4:53 PM CDT Inhaled Oxygen Concentration - - Weight 108 kg (238 lb) 04/15/2025 4:53 PM CDT Height 158.8 cm (5' 2.52) 04/15/2025 4:53 PM CD T Body Mass Index 42.81 04/15/2025 4:53 PM CDT Plan of Treatment Health Maintenance Due Date Last Done Comments Breast Cancer Screening-Mammogram 1993 Cervical Cancer Screening 1993 Hepatitis C Screening 1993 Regular Well Visit/Exam 18-64 12/21/2011 Pneumococcal vaccine <65 (1 of 2 - PCV) 2012 Depression Screening 03/11/2025 03/11/2024, 08/03/2022, 05/02/2022, Additional history exists Influenza Vaccine (#1) 2025 3, 05/02/2021, 04/06/2020, Additional history exists DTaP/Tdap/Td Vaccine (9 - Td or Tdap) 11/10/2026 11/10/2016, 03/19/2009, 06/11/2008, Additional history exists Hepatitis B Screening Completed 12/04/1997 , 06/06/1994, 04/06/1994, Additional history exists Varicella Vaccines Completed 08/22/2011, 09/06/1997 HPV Vaccines Completed 11/12/2015, 09/2014, 06/01/2010 Goals Goal Patient Goal Type Associated Problems Recent Progress Patient-Stated? Author CCM Chronic Pain Care Plan Chronic Care Management Yes Amparo Talley, MARY Note: Problem: Chronic Pain [...] Procedure Name Priority Date/Time Associated Diagnosis Comments EXTENDED/LONG-TERM HOLTER PATCH (>48 HOURS UP TO 7 DAYS) Routine 04/13/2025 8:39 AM CDT Subaortic membrane Palpitations CONGENITAL TRANSTHORACIC ECHO (TTE) COMPLETE W DOPPLER/CF WO CONTRAST Routine 04/09/2025 12:40 PM CDT Subaortic membrane TROPONIN T HIGH-SENSITIVITY 2-HOUR Timed 03/31/2025 11:46 AM CDT DRUGS OF ABUSE SCREEN, URINE WITHOUT CONFIRMATION STAT 03/31/2025 11:00 AM CDT SEPSIS LACTATE WITH REFLEX STAT 03/31/2025 10:47 AM CDT D-DIMER, QUANTITATIVE STAT 03/31/2025 10:47 AM CDT XR CHEST 1 VIEW ED 03/31/2025 10:[address] HEAD WO CONTRAST ED 03/31/2025 1 0:19 AM CDT POCT HCG, URINE Routine 03/31/2025 10:03 AM CDT URINALYSIS AND REFLEX TO MICROSCOPIC AND CULTURE STAT 03/31/2025 9:49 AM CDT MAGNESIUM STAT 03/31/2025 9:46 AM CDT EGFR STAT 03/31/2025 9:46 AM CDT DIFFERENTIAL AUTO STAT 03/31/2025 9:4 6 AM CDT TROPONIN T HIGH-SENSITIVITY SERIES (BASELINE, 2HR, 4HR, 6HR) STAT 03/31/2025 9:46 AM CDT COMPREHENSIVE METABOLIC PANEL STAT 03/31/2025 9:46 AM CDT CBC WITH AUTO DIFFERENTIAL STAT 03/31/2025 9:46 AM CDT ECG 12-LEAD STAT 03/31/2025 9:45 AM CDT POCT GLUCOSE DEVICE Routine 03/31/2025 9 :35 AM CDT from Last 3 Months Results * Extended/Retirement Holter Patch (>48 hours up to 7 days) (04/13/2025 8:39 AM CDT) Anatomical Region Laterality Modality Electrocardiogra phy 04/17/2025 5:40 PM CDT Narrative 04/23/2025 2:44 PM CDT [facility] [place] [address] [place] [address] HOLTER MONITOR Patient Name: MICKIE IVORY S : 1995 (29y 3m) Sex: F Study Date: 04/17/2025 05:40:34 PM Ht(Inch): Wt(Lb): BSA: Tech: Location: [facility] Order Provider: STEPHEN GARG BMI: Ref Provider: STEPHEN GARG PROCEDURES: Holter Report: EXTENDED/LONG-TERM HOLTER PATCH (>48 HOURS UP TO 7 DAYS) [[id number]]. Enrollment Period: 2025-04-17 00:00:00 through 2025-04-20 00:00:00. Location: [facility]. INDICATIONS: Q24.4 Congenital subaortic stenosis and R00.2 Palpitations. FINDINGS: Holter Data: Min Rate: 56 BPM Min Rate Timestamp: 2025-04-20 05:41:34 Bradycardia (% of study): 0 Max Rate: 92 BPM Max Rate Timestamp: 2025-04-19 13:30:33 Tachycardia (% of study): 0 Mean Rate: 69 BPM AFib (% of study): 0 Singlets (PACs): 3 events Couplets (PACs): 0 events Total (PACs): 3 events Singlets (PVCs): 0 events Couplets (PVCs): 0 events Total (VE): 0 events Runs (VT): 0 events Total beats: 343914 SIGNIFICANT PAUSES: 0 >3 sec Protocol: Recording Duration (Ordered): [id number] Recording Duration (Actual): 360490.86 SUMMARY: *The predominant rhythm was Sinus. *The Maximum Heart Rate recorded was 92 bpm, 04/19 13:30:33, the Minimum Heart Rate recorded was 56 bpm, 04/20 05:41:34, and the Average Heart Rate was 69 bpm. *There were 3 SVE beats with a burden of <1 %. *There was 1 Patient Trigger.;. CONCLUSIONS: 1. *The predominant rhythm was Sinus. *The Maximum Heart Rate recorded was 92 bpm, 04/19 13:30:33, the Minimum Heart Rate recorded was 56 bpm, 04/20 05:41:34, and the Average Heart Rate was 69 bpm. *There were 3 SVE beats with a burden of <1 %. *There was 1 Patient Trigger.;. 2. I have reviewed the PDF and all the ECG strips. I agree with the interpretations as detailed in the report 3. The PDF can be found in the Epic Patient chart. Please go to the Cardiology tab, click on the holter or event exam. Scroll to bottom where the ORDER LEVEL Documents reside and click the blue link to the pdf. Electronically Signed By: Stefano Penn Jr., M.D. 04/23/2025 2:34:41 PM CDT Procedure Note Stefano Penn MD PhD - 04/23/2025 [facility] [place] [address] [place] [address] HOLTER MONITOR Patient Name: MICKIE IVORY S : 1995 (29y 3m) Sex: F Study Date: 04/17/2025 05:40:34 PM Ht(Inch): Wt(Lb): BSA: Tech: Location: [facility] Order Provider: STEPHEN GARG BMI: Ref Provider: STEPHEN GARG PROCEDURES: Holter Report: EXTENDED/LONG-TERM HOLTER PATCH (>48 HOURS UP TO 7 DAYS)[[id number]]. Enrollment Period: 2025-04-17 00:00:00 through 2025-04-20 00:00:00. Location: [facility]. INDICATIONS: Q24.4 Congenital subaortic stenosis and R00.2 Palpitations. FINDINGS: Holter Data: Min Rate: 56 BPM Min Rate Timestamp: 2025-04-20 05:41:34 Bradycardia (% of study): 0 Max Rate: 92 BPM Max Rate Timestamp: 2025-04-19 13:30:33 Tachycardia (% of study): 0 Mean Rate: 69 BPM AFib (% of study): 0 Singlets (PACs): 3 events Couplets (PACs): 0 events Total (PACs): 3 events Singlets (PVCs): 0 events Couplets (PVCs): 0 events Total (VE): 0 events Runs (VT): 0 events Total beats: [id number] SIGNIFICANT PAUSES: 0 >3 sec Protocol: Recording Duration (Ordered): [id number] Recording Duration (Actual): 224647.86 SUMMARY: *The predominant rhythm was Sinus. *The Maximum Heart Raterecorded was 92 bpm, 04/19 13:30:33, the Minimum Heart Rate recorded was 56 bpm, 04/1505:41:34, and the Average Heart Rate was 69 bpm. *There were 3 SVE beats with a burden of <1%. *There was 1 Patient Trigger.;. CONCLUSIONS: 1. *The predominant rhythm was Sinus. *The Maximum Heart Rate recorded was92 bpm, 09/14 13:30:33, the Minimum Heart Rate recorded was 56 bpm, 04/20 05:41:34, andthe Average Heart Rate was 69 bpm. *There were 3 SVE beats with a burden of <1 %.*There was 1 Patient Trigger.;. 2. I have reviewed the PDF and all the ECG strips. I agree with theinterpretations as detailed in the report 3. The PDF can be found in the [facility] Patient chart. Please go to theCardiology tab, click on the holter or event exam. Scroll to bottom where the ORDER LEVELDocuments reside and click the blue link to the pdf. Electronically Signed By: Stefano Penn Jr., M.D. 04/23/2025 2:34:41 PM CDT us Stephen Garg MD [facility] CARD[facility]AC SERVICES PRO CEDURES Final Result * CONGENITAL TRANSTHORACIC ECHO (TTE) COMPLETE W DOPPLER/CF WO CONTRAST (04/09/2025 12:40 PM CDT) EF Mod BP 68 % CONS SCIMAGE Anatomical Region Laterality Modality Ultrasound 04/09/2025 10:5 3 AM CDT Narrative 04/09/2025 8:51 PM CDT [facility] [place] [address] [place] [address] Transthoracic Echocardiographic Report Patient Name: MICKIE IVORY S : 1995 (29y 3m) Gender: F Study Date: 04/09/2025 10:53:15 AM Ht(Inch): 63 Wt(Lb): 233.03 BSA: 2.17 Grinder: Zac Parry RDCS, ACS Location: [facility] Order Provider: STEPHEN GARG Heart Rate: 73 BMI: 41.27 BP: 142 / 61 Ref Provider: STEPHEN GARG PROCEDURES: Echocardiographic Report: Transthoracic complete echo with strain imaging, 2D, spectral and tissue Doppler, color flow Doppler, M-mode. INDICATIONS: Q24.4 Congenital subaortic stenosis. CONCLUSIONS: 1. Subaortic membrane s/p resection, repeat resection and modified Konno procedure, and subsequent resection of recurrent membrane and septal myectomy. 2. Kiuu-dr-ffbqsllm central aortic valve regurgitation. Mild aortic valve stenosis. There is no residual suboaortic membrane or LVOT obstruction. 3. Moderately dilated left ventricle based on volume index. Concentric LV remodeling. Normal left ventricular systolic function. The Ejection Fraction (Poole's) is measured at 68 %. The average global longitudinal strain is borderline. 4. Resting Segmental Wall Motion Analysis: Total wall motion score is 1.00. There are no regional wall motion abnormalities. 5. Normal right ventricular size. Normal right ventricular systolic function. 6. Mild mitral valve regurgitation. Mild tethering of the mitral valve posterior leaflet. ATTESTATION: I have personally reviewed and interpreted this study without fellow or resident. - DISCLAIMER: The study images and the final report will be retained in the patient chart by the [facility] for the legally required time period. This chart constitutes the legal record of any testing performed. FINDINGS: Left Ventricle: Moderately dilated left ventricle based on volume index. Concentric LV remodeling. Normal left ventricular systolic function. The Ejection Fraction (Poole's) is measured at 68 %. The average global longitudinal strain is borderline. The LV global strain is: -17.7 %. Resting Segmental Wall Motion Analysis: Total wall motion score is 1.00. There are no regional wall motion abnormalities. Right Ventricle: Normal right ventricular size. Normal right ventricular systolic function. Left Atrium: The left atrium is normal in size. Right Atrium: The right atrium is normal in size. Atrial Septum: Normal interatrial septum. Mitral Valve: Mild mitral valve regurgitation. No stenosis present. The mean transmitral gradient is: 3 mmHg. Mild tethering of the mitral valve posterior leaflet. Aortic Valve: Normal trileaflet aortic valve. Xted-hz-eawfifta central aortic valve regurgitation. Mild aortic valve stenosis. The mean transaortic gradient is 11 mmHg. The aortic valve area by the continuity equation (using VTI) is 1.44 cm2. Aortic valve dimensionless index is 0.55. There is no residual suboaortic membrane or LVOT obstruction. Tricuspid Valve: Normal tricuspid valve structure. No tricuspid regurgitation. No tricuspid valve stenosis. Pulmonic Valve: Normal pulmonic valve structure. No pulmonic regurgitation. No pulmonic valve stenosis present. Pericardium: Normal pericardium without pericardial effusion. Aorta: Normal aortic root size at sinuses of Valsalva. Normal aortic root size when indexed. The ascending aorta is normal in size when indexed. IVC: The IVC was <2.1 cm and collapsibility >50%. (est. RA pressure 0-5 mmHg). PASP: Unable to determine PASP due to inadequate TR jet. Pulmonary Artery: Patent main and left pulmonary arteries; the right pulmonary artery is not well visualized. Congenital: Sinus Solitus. Levocardia. MEASUREMENTS: 2D/MM Value Range Doppler Value Range LVIDd 2D 4.53 cm [ 3.80 - 5.20 ] AV Peak Garret 2.1 m/s [ 1.0 - 1.7 ] LVIDs 2D 2.73 cm [ 2.20 - 3.50 ] AV Peak PG 17.64 mmHg IVSd 2D 1.08 cm [ 0.60 - 0.90 ] AV Mean PG 11 mmHg LVPWd 2D 1.10 cm [ 0.60 - 0.90 ] AV VTI 46.4 cm LV Thickness Ratio 1.0 LVOT Peak Garret 1.1 m/s [ 0.7 - 1.1 ] LV FS 2D 39.67 % [ 27.00 - 45.00 ] LVOT Peak PG 4.84 mmHg LV Mass 2D 177.59 g LVOT Mean PG 3 mmHg LV Mass Index 2D 81.84 g/m2 LVOT VTI 25.7 cm RWT 0.49 LVOT Diam 1.82 cm EDV Mod BP 169.37 ml [ 46.00 - 106.00 ] RUDDY VTI 1.44 cm2 LV EDV Index 78.05 ml/m2 LVOT/AV VTI 0.55 - Dimensionless index (DVI) ESV Mod BP 53.59 ml [ 14.00 - 42.00 ] AI Peak Garret 4.6 m/s EF Mod BP 68 % [ 54 - 74 ] AI Peak PG 84 mmHg LV GLS -17.7 % [ -25.0 - -18.0 ] AI Decel Time 1315.45 sec LA Length 4C 5.71 cm AI Decel Cecil 3.49 m/s2 LA Length 2C 5.23 cm AI PHT 381.48 msec LA Volume BP 49.01 ml MV E Peak Garret 1.1 m/s [ 0.6 - 1.3 ] LA Volume Index 22.59 ml/m2 [ 16.00 - 34.00 ] MV A Peak Garret 1.1 m/s [ 1.0 - 1.2 ] RV Base Dimen 2D 4.2 cm [ 2.5 - 4.2 ] MV E/A 1.0 ratio [ 0.8 - 1.5 ] TAPSE 1.98 cm [ 1.71 - 5.00 ] MV Peak Garret 1.3 m/s RA Volume 42.56 ml MV Peak PG 6.76 mmHg RA Volume Index 19.61 ml/m2 MV Mean PG 3 mmHg IVC Diam 1.06 cm MV VTI 35.8 cm IVC Collapse 74 % MV Decel Time 409.74 msec [ 104.00 - 258.00 ] AoR Diam 2D 3.19 cm [ 2.70 - 3.70 ] Med E` Garret 6.9 cm/sec [ 8.0 - 25.0 ] Ao Root Index 1.47 cm/m2 [ 1.00 - 2.00 ] Lat E` Garret 10.3 cm/sec [ 10.0 - 25.0 ] Asc Ao Diam 2D 2.33 cm Average E/E` 12.79 Asc Ao Index 1.07 cm/m2 RV S` 12.53 cm/sec TR Peak Garret 2.3 m/s [ 1.0 - 2.8 ] TR Peak PG 21.2 mmHg PV Peak Garret 1.2 m/s [ 0.4 - 0.8 ] PV Peak PG 5.76 mmHg Electronically Signed By: Stephen Garg MD 04/09/2025 8:49:57 PM CDT Procedure Note Stephen Garg MD - 04/09/2025 [facility] [place] [address] [place] [address] Transthoracic Echocardiographic Report Patient Name: MICKIE IVORY S : 1995 (29y 3m) Gender: F Study Date: 04/09/2025 10:53:15 AM Ht(Inch): 63 Wt(Lb): 233.03 BSA: 2.17 Grinder: Zac Parry RDCS, ACS Location: [facility] Order Provider:STEPHEN GARG Heart Rate: 73 BMI: 41.27 BP: 142 / 61 Ref Provider: STEPHEN GARG PROCEDURES: Echocardiographic Report: Transthoracic complete echo with strain imaging,2D, spectral and tissue Doppler, color flow Doppler, M-mode. INDICATIONS: Q24.4 Congenital subaortic stenosis. CONCLUSIONS: 1. Subaortic membrane s/p resection, repeat resection and modified Konnoprocedure, and subsequent resection of recurrent membrane and septal myectomy. 2. Yarq-la-ttxhrxpx central aortic valve regurgitation. Mild aortic valvestenosis. There is no residual suboaortic membrane or LVOT obstruction. 3. Moderately dilated left ventricle based on volume index. Concentric LVremodeling. Normal left ventricular systolic function. The Ejection Fraction(Poole's) is measured at 68 %. The average global longitudinal strain is borderline. 4. Resting Segmental Wall Motion Analysis: Total wall motion score is1.00. There are no regional wall motion abnormalities. 5. Normal right ventricular size. Normal right ventricular systolicfunction. 6. Mild mitral valve regurgitation. Mild tethering of the mitral valveposterior leaflet. ATTESTATION: I have personally reviewed and interpreted this study without fellow orresident. - DISCLAIMER: The study images and the final report will be retained in the patientchart by the [facility] for the legally required time period. This chart constitutesthe legal record of any testing performed. FINDINGS: Left Ventricle: Moderately dilated left ventricle based on volume index.Concentric LV remodeling. Normal left ventricular systolic function. The EjectionFraction (Poole's) is measured at 68 %. The average global longitudinal strain is borderline.The LV global strain is: -17.7 %. Resting Segmental Wall Motion Analysis: Total wall motion score is 1.00.There are no regional wall motion abnormalities. Right Ventricle: Normal right ventricular size. Normal right ventricularsystolic function. Left Atrium: The left atrium is normal in size. Right Atrium: The right atrium is normal in size. Atrial Septum: Normal interatrial septum. Mitral Valve: Mild mitral valve regurgitation. No stenosis present. Themean transmitral gradient is: 3 mmHg. Mild tethering of the mitral valve posteriorleaflet. Aortic Valve: Normal trileaflet aortic valve. Hhfk-lv-atcnzmgy centralaortic valve regurgitation. Mild aortic valve stenosis. The mean transaortic gradientis 11 mmHg. The aortic valve area by the continuity equation (using VTI) is 1.44 cm2.Aortic valve dimensionless index is 0.55. There is no residual suboaortic membrane orLVOT obstruction. Tricuspid Valve: Normal tricuspid valve structure. No tricuspidregurgitation. No tricuspid valve stenosis. Pulmonic Valve: Normal pulmonic valve structure. No pulmonicregurgitation. No pulmonic valve stenosis present. Pericardium: Normal pericardium without pericardial effusion. Aorta: Normal aortic root size at sinuses of Valsalva. Normal aortic rootsize when indexed. The ascending aorta is normal in size when indexed. IVC: The IVC was <2.1 cm and collapsibility >50%. (est. RA pressure 0-5mmHg). PASP: Unable to determine PASP due to inadequate TR jet. Pulmonary Artery: Patent main and left pulmonary arteries; the rightpulmonary artery is not well visualized. Congenital: Sinus Solitus. Levocardia. MEASUREMENTS: 2D/MM Value Range DopplerValue Range LVIDd 2D 4.53 cm [ 3.80 - 5.20 ] AV Peak Vel2.1 m/s [ 1.0 - 1.7 ] LVIDs 2D 2.73 cm [ 2.20 - 3.50 ] AV Peak PG17.64 mmHg IVSd 2D 1.08 cm [ 0.60 - 0.90 ] AV Mean PG11 mmHg LVPWd 2D 1.10 cm [ 0.60 - 0.90 ] AV VTI46.4 cm LV Thickness Ratio 1.0 LVOT Peak Vel1.1 m/s [ 0.7 - 1.1 ] LV FS 2D 39.67 % [ 27.00 - 45.00 ] LVOT Peak PG4.84 mmHg LV Mass 2D 177.59 g LVOT Mean PG3 mmHg LV Mass Index 2D 81.84 g/m2 LVOT VTI25.7 cm RWT 0.49 LVOT Diam1.82 cm EDV Mod BP 169.37 ml [ 46.00 - 106.00 ] RUDDY VTI1.44 cm2 LV EDV Index 78.05 ml/m2 LVOT/AV VTI0.55 - Dimensionless index (DVI) ESV Mod BP 53.59 ml [ 14.00 - 42.00 ] AI Peak Vel4.6 m/s EF Mod BP 68 % [ 54 - 74 ] AI Peak PG84 mmHg LV GLS -17.7 % [ -25.0 - -18.0 ] AI Decel Uexl4926.45 sec LA Length 4C 5.71 cm AI Decel Slope3.49 m/s2 LA Length 2C 5.23 cm AI LPK491.48 msec LA Volume BP 49.01 ml MV E Peak Vel1.1 m/s [ 0.6 - 1.3 ] LA Volume Index 22.59 ml/m2 [ 16.00 - 34.00 ] MV A Peak Vel1.1 m/s [ 1.0 - 1.2 ] RV Base Dimen 2D 4.2 cm [ 2.5 - 4.2 ] MV E/A1.0 ratio [ 0.8 - 1.5 ] TAPSE 1.98 cm [ 1.71 - 5.00 ] MV Peak Vel1.3 m/s RA Volume 42.56 ml MV Peak PG6.76 mmHg RA Volume Index 19.61 ml/m2 MV Mean PG3 mmHg IVC Diam 1.06 cm MV VTI35.8 cm IVC Collapse 74 % MV Decel Jpgy380.74 msec [ 104.00 - 258.00 ] AoR Diam 2D 3.19 cm [ 2.70 - 3.70 ] Med E` Vel6.9 cm/sec [ 8.0 - 25.0 ] Ao Root Index 1.47 cm/m2 [ 1.00 - 2.00 ] Lat E` Vel10.3 cm/sec [ 10.0 - 25.0 ] Asc Ao Diam 2D 2.33 cm Average E/E`12.79 Asc Ao Index 1.07 cm/m2 RV S`12.53 cm/sec TR Peak Garret 2.3 m/s [ 1.0 - 2.8 ] TR Peak PG 21.2 mmHg PV Peak Garret 1.2 m/s [ 0.4 - 0.8 ] PV Peak PG 5.76 mmHg Electronically Signed By: Stephen Garg MD 04/09/2025 8:49:57 PM CDT us Stephen Garg MD CV ECHO PROCEDURES Munira l Result * Troponin T high-sensitivity 2-hour (03/31/2025 11:46 AM CDT) Trop T hs <6 <=14 ng/L Comment: Interpretive Data For further hscTnT resources including the diagnostic algorithm and an aid in interpretation, copy and paste this link: https://nrl.testcatalog.org/show/hsTrop Current Interpretive Data last revised 2020. Testing performed by: [address] [address] Trop T hs delta 0 ng/L MELANI HDEZ Comment:Testing performed by : [address] [address] Trop T hs interp Insignificant MELANI Comment:Testing performed by : [address] [address] Blood 03/31/2025 11:4 6 AM CDT 03/31/2025 11:52 AM CDT us George Zuniga [place] LAB BLOOD ORDERABL ES Final Result [facility] [address] [facility] Department of Laboratories [place], [place] [id number] * Drugs of Abuse Screen, Urine without Confirmation (03/31/2025 11:00 AM CDT) [facility] Amphetamine, ur Not Detected CutOff 500ng/mL Comment: Interpretive Data - Amphetamines: Samples containing greater than 500 ng/mL d-methamphetamine or other cross-reacting amphetamine compounds are reported as positive. Amphetamine immunoassays are subject to significant false positive rates due to cross-reactivity of non-amphetamine drugs. Confirmatory testing required for definitive results. Current Interpretive Data was last reviewed 2023. Testing performed by: [address] [address] Barbiturates, ur Not Detected CutOff 200ng/mL MELANI Comment: Interpretive Data - Barbiturates: Samples containing greater than 200 ng/mL secobarbital or other cross-reacting barbiturate compounds are reported as positive. False positive and false negative results are possible. Confirmatory testing required for definitive results. Current Interpretive Data was last reviewed 2023. Testing performed by: [address] [address] Benzodiazepines, ur Not Detected CutOff 100ng/mL MELANI Comment: Interpretive Data - Benzodiazepines: Samples containing greater than 100 ng/mL nordiazepam or other cross-reacting compounds are reported as positive. False positive and false negative results are possible. Confirmatory testing required for definitive results. Current Interpretive Data was last reviewed 2023. Testing performed by: [address] [address] Cannabinoids, ur Not Detected CutOff 50 ng/mL MELANI Comment: Interpretive Data - Cannabinoids: Samples containing greater than 50 ng/mL delta-9 THC -COOH or other cross- reacting compounds are reported as positive. False positive and false negative results are possible. Confirmatory testing required for definitive results. Current Interpretive Data was last reviewed 2023. Testing performed by: [address] [address] Cocaine, ur Not Detected CutOff 150ng/mL [facility] Comment: Interpretive Data - Cocaine: Samples containing greater than 150 ng/mL benzoylecgonine or other cross- reacting compounds are reported as positive. False positive and false negative results are possible. Confirmatory testing required for definitive results. Current Interpretive Data was last reviewed 2023. Testing performed by: [facility], [address] [place] [address]., [address] Fentanyl, Ur Not Detected CutOff 5 ng/mL [facility] Comment: Interpretive Data - Fentanyl: Samples containing greater than 1 ng/mL fentanyl or other cross-reacting fentanyl compounds are reported as positive. False positive and false negative results are possible. Confirmatory testing required for definitive results. Current Interpretive Data was last reviewed 2023. Testing performed by: [address] [address] Methadone, ur Not Detected CutOff 300ng/mL [facility] Comment: Interpretive Data - Methadone: Samples containing greater than 300 ng/mL d,l-methadone or other cross-reacting compounds are reported as positive. False positive and false negative results are possible. Confirmatory testing required for definitive results. Current Interpretive Data was last reviewed 2023. Testing performed by: [address] [address] Opiates, ur Not Detected CutOff 300ng/mL [facility] Comment: Interpretive Data - Opiates: Samples containing greater than 300 ng/mL morphine or other cross-reacting compounds are reported as positive. False positive and false negative results are possible. Confirmatory testing required for definitive results. Current Interpretive Data was last reviewed 2023. Testing performed by: [address] [address] Oxycodone, ur Not Detected CutOff 100ng/mL [facility] Comment: Interpretive Data - Oxycodone: Samples containing greater than 100 ng/mL oxycodone or other cross-reacting compounds are reported as positive. False positive and false negative results are possible. Confirmatory testing required for definitive results. Current Interpretive Data was last reviewed 2023. Testing performed by: [address] [address] Phencyclidine, ur Not Detected CutOff 25 ng/mL [facility] Comment: Interpretive Data - Phencyclidine: Samples containing greater than 25 ng/mL phencyclidine or other cross-reacting compounds are reported as positive. False positive and false negative results are possible. Confirmatory testing required for definitive results. Current Interpretive Data was last reviewed 2023. Testing performed by: [address] [address] Urine Creatinine 113 mg/dL MELANI Comment: Interpretive Data Urine Creatinine: < 10 mg/dL is extremely dilute = or > 10 but < 20 mg/dL is dilute = or > 20 mg/dL is normal Current Interpretive Data was last revised on 2017. Testing performed by: [address] [address] Urine 03/31/2025 11:0 0 AM CDT 03/31/2025 11:03 AM CDT Narrative MELANI - 03/31/2025 11:38 AM CDT Drug of Abuse screening is performed by immunoassay for medical purposes only. This is not to be used for Pain Management purposes. Darline Herndon MD LAB URINE ORDERABLES Munira l Result Performing Organization Address City/[facility] Co de Phone Number [place] [id number] [facility] [place] [place] [address] * Sepsis Lactate w/ Reflex (03/31/2025 10:47 AM CDT) Sepsis Lactate 0.7 0.7 - 2.0 mmol/L Comment:Testing performed by : [address] [address] Blood 03/31/2025 10:4 7 AM CDT 03/31/2025 10:51 AM CDT Darline Herndon MD LAB BLOOD ORDERABLES Munira l Result Performing Organization Address City/[facility]/ZIP Co de Phone Number [facility] [address] [facility] [place] [address] * D-dimer, quantitative (03/31/2025 10:47 AM CDT) D-Dimer 330 <=499 ng/mL FEU Comment: Interpretive data FDA approved the D-dimer, in conjunction with a low or moderate pretest probability score, to exclude venous thromboembolic events (VTE) (PE and DVT) in outpatients when the D-dimer result is < 500 ng/ml FEU. Evidence supports using an age-adjusted D-dimer cut-off for outpatients older than 50 (age x 10) to improve specificity without sacrificing sensitivity. Example: age 68, VTE cut-off 680 ng/ml FEU. References; Schoutmyles HT et al. Brit Med J. 2013;346:f2492. Cash et al. Annals Int Med. 2015;163:701-11. Current interpretive data was last revised on 2019. Testing performed by: [facility], [address] [place] [address]., [address] Blood 03/31/2025 10:4 7 AM CDT 03/31/2025 10:51 AM CDT us George GUNN LAB BLOOD ORDERABL ES Final Result MELANI [address] [facility] Department [place] [address] * XR Chest 1 Vw Portable (03/31/2025 10:23 AM CDT) Anatomical Region Laterality Modality Body, Chest N/A Computed Radiogr aphy 03/31/2025 12:3 9 PM CDT Narrative 03/31/2025 12:40 PM CDT EXAM DESCRIPTION: XR CHEST 1 VIEW REASON FOR STUDY: dizziness; cardiac hx Pt presents to ED for report of loss of balance, slow to respond, and feeling lightheaded that started around 1700 yesterday evening. Pt denies any CRUZ, chest pain, or abd pain. Pt does report some SOB with exertion TECHNIQUE: Single radiographic view(s) of the chest. COMPARISON: Prior exam 04/11/2023 and 11/09/2022 FINDINGS: LUNGS: Pulmonary vascularity appears normal. No confluent infiltrate or effusion. Costophrenic angles are sharp. HEART/MEDIASTINUM: Prior median sternotomy. LINES/TUBES: None. BONES: No acute osseous abnormality. IMPRESSION: No acute findings or infiltrate. THIS IS AN ELECTRONICALLY VERIFIED FINAL REPORT 03/31/2025 12:40 PM - Electronically signed by Leonardo ZUNIGA: NADIA Report ID: [id number] Reading Location: [id number] Procedure Note Leonardo Mcgraw MD - 03/31/2025 EXAM DESCRIPTION: XR CHEST 1 VIEW REASON FOR STUDY: dizziness; cardiac hx Pt presents to ED for report of loss of balance, slow to respond, andfeeling lightheaded that started around 1700 yesterday evening. Pt denies any CRUZ, chest pain, or abd pain. Pt does report some SOB with exertion TECHNIQUE: Single radiographic view(s) of the chest. COMPARISON: Prior exam 04/11/2023 and 11/09/2022 FINDINGS: LUNGS: Pulmonary vascularity appears normal. No confluent infiltrate or effusion. Costophrenic angles are sharp. HEART/MEDIASTINUM: Prior median sternotomy. LINES/TUBES: None. BONES: No acute osseous abnormality. IMPRESSION: No acute findings or infiltrate. THIS IS AN ELECTRONICALLY VERIFIED FINAL REPORT 03/31/2025 12:40 PM - Electronically signed by Leonardo Mcgraw M.D. MJ: NADIA Report ID: [id number] Reading Location: [id number] us Darline Herndon MD IMG XR PROCEDURES Final R esult * CT Head WO Contrast (03/31/2025 10:19 AM CDT) Anatomical Region Laterality Modality Head and Neck N/A Computed Tomogra phy 03/31/2025 12:2 8 PM CDT Narrative 03/31/2025 12:31 PM CDT EXAM DESCRIPTION: CT HEAD WO CONTRAST REASON FOR STUDY: loss of balance, slow to respond, and feeling lightheaded that started around 1700 yesterday evening. Pt denies any CRUZ, chest pain, or abd pain. Pt does report some SOB with exertion TECHNIQUE: Axial images acquired through the brain without intravenous contrast. Images stored on PACS. Automated exposure control was used as a dose optimization technique for this examination. COMPARISON: 04/12/2022. FINDINGS: BRAIN: No acute intraparenchymal hemorrhage, cerebral edema, hydrocephalus, mass, or mass effect. EXTRA-AXIAL SPACES: No extra-axial fluid collection or mass. CALVARIUM: No acute skull base or calvarial abnormality. SINUSES/MASTOIDS: Trace left mastoid effusion. Right mastoid air cells are clear. The paranasal sinuses are predominantly clear. ORBITS: No significant abnormality. OTHER: No other significant abnormality. IMPRESSION: 1. No evidence of an acute intracranial abnormality. 2. Trace left mastoid effusion. THIS IS AN ELECTRONICALLY VERIFIED FINAL REPORT 03/31/2025 12:31 PM - Electronically signed by Michael Maher M.D. CH: TK Report ID: [id number] Reading Location: [id number] Procedure Note Michael Maher MD - 03/31/2025 EXAM DESCRIPTION: CT HEAD WO CONTRAST REASON FOR STUDY: loss of balance, slow to respond, and feelinglightheaded that started around 1700 yesterday evening. Pt denies any CRUZ, chest pain,or abd pain. Pt does report some SOB with exertion TECHNIQUE: Axial images acquired through the brain without intravenous contrast. Images stored on PACS. Automated exposure control was used asa dose optimization technique for this examination. COMPARISON: 04/12/2022. FINDINGS: BRAIN: No acute intraparenchymal hemorrhage, cerebral edema,hydrocephalus, mass, or mass effect. EXTRA-AXIAL SPACES: No extra-axial fluid collection or mass. CALVARIUM: No acute skull base or calvarial abnormality. SINUSES/MASTOIDS: Trace left mastoid effusion. Right mastoid air cellsare clear. The paranasal sinuses are predominantly clear. ORBITS: No significant abnormality. OTHER: No other significant abnormality. IMPRESSION: 1. No evidence of an acute intracranial abnormality. 2. Trace left mastoid effusion. THIS IS AN ELECTRONICALLY VERIFIED FINAL REPORT 03/31/2025 12:31 PM - Electronically signed by Michael Maher M.D. CH: TK Report ID: [id number] Reading Location: [place] [address] [facility] PROCEDURES Final Result * POCT hCG, urine (03/31/2025 10:03 AM CDT) HCG, ur, POC Negative Negative Lot Number [id number] QC Backgroud Clear Acceptable QC Control Line Acceptable Urine 03/31/2025 10:0 3 AM CDT Result [facility] Chad GUNN POINT OF CARE TEST ORDERABLES Final Result * Urinalysis reflex to microscopic and culture Urine, clean voided (03/31/2025 9:49 AM CDT) Color, ur Yellow Yellow Comment:Testing performed by : [address] [address] Clarity, ur Clear Clear MELANI Comment:Testing performed by : [address] [address] Specific gravity, ur 1.019 1.003 - 1.030 MELANI Comment:Testing performed by : [address] [address] pH, urine 6.5 MELANI Comment: Interpretive Data U rine pH is affected by diet, medications, systemic acid-base disturbances, and renal tubular function. pH may affect urinary stone formation. For example, urine pH below 6.0 may help reduce the tendency for calcium phosphate stones and pH greater than 6.0 may reduce the tendency for uric acid stone formation. Source: Quantance Current Interpretive Data was last revised on 2017 Testing performed by: [address] [address] Protein, ur ql Negative Negative MELANI Comment:Testing performed by : [facility], [address] [place] [address], [place]., [address] Glucose, ur ql Negative Negative MELANI Comment:Testing performed by : [facility], [address] [place] [address], [place]., [address] Ketones, ur Negative Negative MELANI Comment:Testing performed by : [address], [place]., [address] Bilirubin, ur Negative Negative MELANI Comment:Testing performed by : [facility], [address] [place] [address], [place]., [address] Blood, ur Negative Negative MELANI Comment:Testing performed by : [address], [place]., [address] Urobilinogen, ur <2.0 <2.0 mg/dL MELANI Comment:Testing performed by : [address], [place]., [address] Nitrite, ur Negative Negative MELANI Comment:Testing performed by : [address], [place]., [address] Leukocyte esterase, ur Negative Negative MELANI Comment:Testing performed by : [address], [place]., [address] UA reflex comment Reflex conditions for microscopic UA and culture not met. MELANI Comment:Testing performed by : [facility], [address] [place] [address], [place]., [address] Urine, clean voided 03/31/2025 9:49 AM CDT 03/31/2025 10:18 AM CDT us George GUNN LAB MICROBIOLOGY - GENERAL ORDERABLES Final Result MELANI HDEZ [address] [facility] Department [place] [address] * Troponin T high-sensitivity series (baseline, 2hr, 4hr, 6hr) (03/31/2025 9:46 AM CDT) Trop T hs <6 <=14 ng/L Comment: Interpretive Data For further hscTnT resources including the diagnostic algorithm and an aid in interpretation, copy and paste this link: https://nrl.testcatalog.org/show/hsTrop Current Interpretive Data last revised 2020. Testing performed by: [address] [address] Blood 03/31/2025 9:46 AM CDT 03/31/2025 10:18 AM CDT George Zuniga PA LAB BLOOD ORDERABL ES Final Result Performing Organization Address City/[facility] Co de Phone Number MELANI [facility] [place] [address] * eGFR (03/31/2025 9:46 AM CDT) eGFR 83 >=60 mL/min/1. 73 m2 Comment: Interpretive Data Reference Interval Normal >/= 90 mL/min/1.73m2 Mildly decreased* 60 - 89 mL/min/1.73m2 Mildly to moderately decreased 45 - 59 mL/min/1.73m2 Moderately to severely decreased 30 - 44 mL/min/1.73m2 Severely decreased 15 - 29 mL/min/1.73m2 Kidney Failure < 15 mL/min/1.73m2 *Relative to young adult level Estimated glomerular filtration rate is determined by the 2020 CKD-EPI equation recommended by the National Kidney Foundation (A Unifying Approach to GFR Estimation: Recommendations of the NKF-ASK Task Force on Reassessing the Inclusion of Race in Diagnosing Kidney Disease, JASN 2020). The CKD-EPI equation should not be used for patients with unstable renal function and has not been validated in children and those over 70. Current interpretive data was last reviewed 2021. Testing performed by: [address] [address] Blood 03/31/2025 9:46 AM CDT 03/31/2025 10:18 AM CDT George Tolulade Adesida PA LAB BLOOD ORDERABL ES Final Result Performing Organization Address [facility] Co de Phone Number MELANI [address] [facility] Department [place] [address] * Differential, auto (03/31/2025 9:46 AM CDT) Neutrophil abs 3.48 1.50 - 6.50 K/cumm Comment:Testing performed by : [address] [address] Imm gran abs 0.01 0.00 - 0.10 K/cumm MELANI Comment:Testing performed by : [address] [address] Lymphocyte abs 1.21 0.80 - 3.30 K/cumm MELANI Comment:Testing performed by : [address] [address] Monocyte abs 0.43 0.20 - 0.80 K/cumm MELANI Comment:Testing performed by : [address] [address] Eosinophil abs 0.14 0.00 - 0.50 K/cumm MELANI Comment:Testing performed by : [address] [address] Basophil abs 0.02 0.00 - 0.10 K/cumm MELANI Comment:Testing performed by : [address] [address] Neutrophil pct 65.8 % MELANI Comment: Interpretive Data Percent cell count reference ranges are not reported, since discordance with absolute values may lead to misinterpretation of CBC data. Current Interpretive Data was last revised on 2017. Testing performed by: [address] [address] Imm gran pct 0.2 % MELANI Comment: Interpretive Data Percent cell count reference ranges are not reported, since discordance with absolute values may lead to misinterpretation of CBC data. Current Interpretive Data was last revised on 2017. Testing performed by: [address] [address] Lymphocyte pct 22.9 % MELANI Comment: Interpretive Data Percent cell count reference ranges are not reported, since discordance with absolute values may lead to misinterpretation of CBC data. Current Interpretive Data was last revised on 2017. Testing performed by: [address] [address] Monocyte pct 8.1 % MELANI Comment: Interpretive Data Percent cell count reference ranges are not reported, since discordance with absolute values may lead to misinterpretation of CBC data. Current Interpretive Data was last revised on 2017. Testing performed by: [address] [address] Eosinophil pct 2.6 % MELANI Comment: Interpretive Data Percent cell count reference ranges are not reported, since discordance with absolute values may lead to misinterpretation of CBC data. Current Interpretive Data was last revised on 2017. Testing performed by: [address] [address] Basophil pct 0.4 % MELANI Comment: Interpretive Data Percent cell count reference ranges are not reported, since discordance with absolute values may lead to misinterpretation of CBC data. Current Interpretive Data was last revised on 2017. Testing performed by: [address] [address] Blood 03/31/2025 9:46 AM CDT 03/31/2025 10:18 AM CDT George GUNN LAB BLOOD ORDERABL ES Final Result MELANI [address] [facility] Department of Laboratories [place], [place] [id number] * (ABNORMAL) CBC with auto differential (03/31/2025 9:46 AM CDT) WBC 5.29 3.80 - 9.90 K/cumm Comment:Testing performed by : [address] [address] Hgb 11.6(L) 11.9 - 15.5 g/dL MELANI HDEZ Comment:Testing performed by : [address] [address] Hct 36.2 35.6 - 45.5 % MELANI Comment:Testing performed by : [address], [address] Plt 217 150 - 400 K/cumm MELANI Comment:Testing performed by : [address] [address] MPV 8.7(L) 9.1 - 12.3 fL MELANI Comment:Testing performed by : [address], [address] RBC 4.60 3.90 - 5.20 M/cumm MELANI Comment:Testing performed by : [address], [address] MCV 78.7(L) 81.3 - 96.4 fL MELANI Comment:Testing performed by : [address], [address] MCH 25.2(L) 27.1 - 33.3 pg MELANI Comment:Testing performed by : [address], [address] MCHC 32.0(L) 32.3 - 35.7 g/dL MELANI Comment:Testing performed by : [address], [address] RDW CV 14.8 11.1 - 14.9 % MELANI Comment:Testing performed by : [address], [address] RDW SD 42.0 35.7 - 48.1 fL MELANI Comment:Testing performed by : [address], [address] NRBC abs 0.00 0.00 - 0.01 K/cumm MELANI Comment:Testing performed by : [address], [address] Blood 03/31/2025 9:46 AM CDT 03/31/2025 10:18 AM CDT us George GUNN LAB BLOOD ORDERABL ES Final Result MELANI [facility]0 [facility] Department [place] [address] * Magnesium (03/31/2025 9:46 AM CDT) Pathologist [facility] Magnesium 2.2 1.4 - 2.5 mg/dL Comment:Testing performed by : [address] [address] Blood 03/31/2025 9:46 AM CDT 03/31/2025 10:18 AM CDT us Darline Herndon MD LAB BLOOD ORDERABLES Munira l Result MELANI [facility]4 [facility] Department [place] [address] * Comprehensive metabolic panel (03/31/2025 9:46 AM CDT) [facility] Sodium 138 135 - 145 mmol/L Comment:Testing performed by : [address] [address] Potassium, pl 4.4 3.3 - 4.9 mmol/L MELANI Comment:Testing performed by : [address] [address] Chloride 103 97 - 110 mmol/L MELANI Comment:Testing performed by : [address] [address] CO2 24 22 - 32 mmol/L MELANI Comment:Testing performed by : [address] [address] Anion gap 11 2 - 15 mmol/L MELANI Comment:Testing performed by : [address] [address] BUN 14 6 - 25 mg/dL MELANI Comment:Testing performed by : [address] [address] Creatinine 0.94 0.60 - 1.10 mg/dL MELANI Comment:Testing performed by : [address] [address] Glucose 95 70 - 199 mg/dL MELANI Comment: Interpretive Data Fasting glucose >/= 126 mg/dl is diagnostic for diabetes. Fasting is defined as no caloric intake for at least 8 hours. Fasting glucose between 100 mg/dl to 125 mg/dl is diagnostic of prediabetes. In a patient with classic symptoms of hyperglycemia or hyperglycemic crisis, a random glucose >/= 200 mg/dl is diagnostic for diabetes. In the absence of unequivocal hyperglycemia, results should be confirmed by repeat testing. The classification and Diagnosis of Diabetes Diabetes Care 2021; 46: S19-S40. Current interpretive data was last revised 2022. Testing performed by: [address] [address] Calcium 9.4 8.5 - 10.3 mg/dL MELANI Comment:Testing performed by : [address] [address] Bilirubin, total <0.2 0.1 - 1.2 mg/dL MELANI Comment:Testing performed by : [address] [address] Protein, pl 7.6 6.5 - 8.5 g/dL MELANI Comment:Testing performed by : [address] [address] Albumin 3.9 3.5 - 5.0 g/dL MELANI Comment:Testing performed by : [address] [address] Alk phos 82 40 - 130 Units/L MELANI Comment:Testing performed by : [address] [address] ALT 12 7 - 45 Units/L MELANI Comment:Testing performed by : [address] [address] AST 14 10 - 45 Units/L MELANI Comment:Testing performed by : [address] [address] Blood 03/31/2025 9:46 AM CDT 03/31/2025 10:18 AM CDT George GUNN LAB BLOOD ORDERABL ES Final Result Performing Organization Address [facility]/ZIP Co de Phone Number MELANI [address] [facility] Department [place] [address] * ECG 12 lead (03/31/2025 9:45 AM CDT) Ventricular Rate EKG/Min 66 BPM [facility] Atrial Rate 66 BPM [facility] ME-Interval (MSEC) 198 ms [facility] QRS-Interval (MSEC) 118 ms [facility] QT-Interval (MSEC) 440 ms [facility] QTc 461 ms [facility] P [place] 41 degrees [facility] R [place] -25 degrees [facility] T [place] 25 degrees [facility] Diagnosis Normal sinus rhythm Left ventricular hypertrophy with QRS widening Abnormal ECG When compared with ECG of 23-JUL-2022 19:05, No significant change was found Confirmed by KENDALL PENA M.D. ([id number]) on 03/31/2025 8:27:38 PM [facility] 03/31/2025 9:45 AM CDT 03/31/2025 8:27 PM CDT us Darline Herndon MD ECG ORDERABLES Final Res ult Performing Organization Address [facility] Co de Phone Number [facility] * POCT glucose (03/31/2025 9:35 AM CDT) Glucose, POC 88 70 - 199 mg/dL Comment:Testing performed by : [facility], [address] [place] [address]., [address] Blood 03/31/2025 9:35 AM CDT 03/31/2025 9:35 AM CDT us Notinfile Unknown LAB POCT ORDERABLES - DEVICE F inal Result Performing Organization Address [facility]/ZIP Co de Phone Number MELANI [address] [facility] Department [place] [address] from Last 3 Months Insurance [employer] [place] HEALTHLINK OPEN ACCESS HEALTHLINK OPEN ACCESS HEALTHLINK OPEN ACCESS HEALTHLINK OPEN ACCESS [facility] HEALTHLINK OPEN ACCESS Advance Directives For more information, please contact: [phone] Documents on File Type Date Recorded Patient Adult Education Instructor Expl anation ADVANCE DIRECTIVE 09/03/2018 5:49 AM ADVANCE DIRECTIVE 08/28/2018 12:47 PM * Full Code (Latest Code Status on File) Date Activated Date Inactivated Comments 09/03/2018 12:59 PM 09/06/2018 9:00 PM Care Teams Urology Physician Assistant Relationship Specialty Start Date End Date Roberta Johnson MD [address] [facility] [address] [place] [address] PCP - General Family Practice 10/16/24 Angie Velazquez MD Referring Physician Cardiology 07/25/18 Stephanie Anderson, FLIGHT OPERATIONS SPECIALIST [address] [place] [address] Nurse Practitioner Psychiatry 03/28/22
--- OUTSIDE RECORDS SUMMARY | 2025-06-11 14:46 | XMS_ITS | Encounter Summary ---
Author Organization [facility] Address [address] [place] [address] Phone Care Team Providers Care Breast Worker Name Role Phone Flor Zabala NP Primary Care Provider [phone] Angie Velazquez MD Unavailable [phone] Otto Potts MD, Leonardo Walden Primary Care Provide r Stephanie Anderson Unavailable Jimmy Raphael Primary Care Provider [phone] Unknown, Notinfile Primary Care Provider Unavail able Roberta Johnson MD Primary Care Provider Encounter Details Date Type Department Care Team (Late st Contact Info) Description 01/17/2018 Telephone [facility] Medicine Scheduling [address] [place] [address] [place] [address] [place] [address] Social History Tobacco Use Types Packs/Day Years Used Date Smoking Tobacco: Never Comments Unknown Sex and Gender Information Value Date Recorded Sex Assigned at Not on file Legal Sex Female 1:47 AM SHUTTLECOCK ASSEMBLER Gender Identity Not on file Sexual Orientation [...] the result is from a facility outside [facility] . 07/23/2022 07/23/2022 08/02/2022 3:05 AM SHUTTLECOCK ASSEMBLER COVID: Recovered Comment:Added based on recent COVID infection. 08/02/2022 08/03/2022 10/31/2022 3:05 AM C DT documented as of this encounter Care Teams Breast Worker Relationship Specialty Start Date End Date Flor Zabala NP PCP - General 02/13/17 03/27/22 Leonardo Menjivar Jr., MD [address] [place] [address] PCP - General Internal Medicine 03/28/22 09/19/22 Jimmy Raphael PA [address] [place] [address] PCP - General Physician Vulcanizing Machine Operator 09/20/22 04/20/24 Unknown, Notinfile PCP - General 04/29/24 10/15/24 Roberta Johnson MD [facility] [address] [place], [place] [id number] PCP - General Family Practice 10/16/24 Angie Velazquez MD Referring Physician Cardiology 07/25/18 Stephanie Anderson CNS [address] [place] [address] Nurse Practitioner Psychiatry 03/28/22 documented as of this encounter
--- OUTSIDE RECORDS SUMMARY | 2025-06-11 14:46 | XMS_ITS | Clinical Summary ---
Author Organization [facility] Care Team Providers Care News Correspondent Name Role Phone Unavailable Primary Care Provider Unavailabl e Social History Tobacco Use Types Packs/Day Years Used Date Smoking Tobacco: Never Assessed Comments Unknown Sex and Gender Information Value Date Recorded Sex Assigned at Not on file Legal Sex Female 9:20 AM SIDE STAPLER Gender Identity Not on file Sexual Orientation Not on file Plan of Treatment Health Maintenance Due Date Last Done Comments Hepatitis C Virus (HCV) Screening 1993 Pap Smear 2014 Cervical Cancer Screening (CCS) 12/21/2023 HPV/Cotest 12/21/2023 Influenza Immunization (#1) 2025 09/0 08/2019, 05/01/2019, 05/07/2015, Additional history exists SARS-COV-2 Immunization ( season) 2025 06/07/2021, 09/09/2020, 08/09/2020, Additional history exists Respiratory Syncytial Virus (RSV) Immunization (Adult) (1 - 1-dose 75+ series) 2068 Hepatitis B Immunization Completed 998, 06/06/1994, 04/06/1994, Additional history exists Meningococcal Immunization (ACWY) Aged Out 06/11/2008 No longer eligible based on patient's age to complete this topic Human Papillomavirus (HPV) Immunization Completed 11/12/2015, 05/07/2015, 06/01/2010 DTaP/Tdap/Td Immunization Discontinued 2016, 03/19/2009, 06/11/2008, Additional history exists TdaP Immunization Completed 11/10/2016, , 06/11/2008 Pneumococcal Immunization Combined Aged Out No longer eligible based on patient's age to complete this topic Rotavirus Immunization Aged Out No lo nger eligible based on patient's age to complete this topic
--- OUTSIDE RECORDS SUMMARY | 2025-06-11 14:46 | XMS_ITS | Encounter Summary ---
Author Organization [facility] Address [address] [place] [address] Care Team Providers Care Field Care Manager Name Role Phone Flor Zabala NP Primary Care Provider [phone] Flora Ames MD Unavailable [phone] Jimmy Raphael Primary Care Provider [phone] Encounter Details Date Type Department Care Team (Late st Contact Info) Description 06/21/2021 [employer] Message Enc [facility] Multispecialty Care - [facility] [address] [facility], [address] [place] [address] Roberta Roman, ASSISTANT FRONT OFFICE MANAGER-C [address] [facility] [address] [place] [address] RE: Other Social History Tobacco Use Types [...] 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 No / Unsure 06/22/2021 2:59 PM MOTOR VEHICLE ASSEMBLER documented as of this encounter Plan of Treatment Not on file documented as of this encounter Visit Diagnoses Not on filedocumented in this encounter Care Teams Field Care Manager Relationship Specialty Start Date End Date Flor Zabala NP PCP - General FAMILY PRACTICE 01/05/16 09/24/22 Jimmy Raphael PA [address] [facility] [address] [place], [place] [id number] PCP - General PHYSICIAN CHANGE MANAGEMENT FACILITATOR 09/25/22 Flora Ames MD [address] [facility] [address] [place], [place] [id number] Jluio C Clinical Data Manager CARDIOVASCULAR DISEASE 05/02/17 documented as of this encounter
--- OUTSIDE RECORDS SUMMARY | 2025-06-11 14:46 | XMS_ITS | Encounter Summary ---
Author Organization [facility] Address [address] [place] [address] Care Team Providers Care Primary Substance Abuse Counselor Name Role Phone Flora Ames MD Unavailable [phone] Jimmy Raphael Primary Care Provider [phone] Encounter Details Date Type Department Care Team (Late st Contact Info) Description 01/30/2025 Hospital Encounter [facility] [place], [place] [id number] Nicole Dick MD [address] [facility] [address] [place], [place] [id number] Social History Tobacco Use Types Packs/Day Years [...] 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 Answer Date of Assessment Author Status No 07/15/2021 6:11 PM STITCHDOWN TOE FORMER Activ e * Do you have serious [...] 8:20 AM Selam Caicedo RN Active * [place] Suicide Severity Rating Scale (Screener/Recent Self-Report) Question Answer Date of Assessment Author Status 1. Wish to be (Past 1 Month) No 01/20/2025 8:20 AM Wilfredo Caicedo RN Ac tive 2. Non-Specific Active Suicidal Thoughts (Past 1 Month) No 01/20/2025 8:20 AM VERONICAT Wilfredo Duran RN A ctive documented as of this encounter Mental Status [...] on filedocumented in this encounter Care Teams Primary Substance Abuse Counselor Relationship Specialty Start Date End Date Jimmy Raphael PA [address] [address] PCP - General PHYSICIAN CONTROLLER COAL OR ORE 09/25/22 Flora Ames MD [facility]. [address] [address] Dun[place] Electrician CARDIOVASCULAR DISEASE 05/02/17 documented as of this encounter
--- OUTSIDE RECORDS SUMMARY | 2025-06-11 14:46 | XMS_ITS | Clinical Summary ---
Author Organization [facility] Address [address] [facility] [place] [address] Phone Care Team Providers Care Dry Cleaner Hand Name Role Phone Kassidy Miller MD Primary Care Provider [phone] Allergies Active Allergy Reactions Criticality Noted Date [...] Comments Blood Pressure 131/75 06/17/2018 6:45 PM RECREATION PROGRAMMER Pulse 77 06/17/2018 6:45 PM RECREATION PROGRAMMER Temperature 36.7 C (98.1 F) 06/17/2018 2:07 PM RECREATION PROGRAMMER Respiratory Rate 18 06/17/2018 2:07 PM RECREATION PROGRAMMER Oxygen Saturation 99% 06/17/2018 6:45 PM RECREATION PROGRAMMER Inhaled Oxygen Concentration - - Weight 82.6 kg (182 lb) 06/17/2018 2:07 PM RECREATION PROGRAMMER Height 158.8 cm (5' 2.5) 06/17/2018 2:07 PM RECREATION PROGRAMMER Body Mass Index 32.76 06/17/2018 2:07 PM RECREATION PROGRAMMER Plan of Treatment Health Maintenance Due Date Last Done Comments DTAP/TDAP/TD VACCINES (1 - Tdap) 2012 HEPATITIS B VACCINES (1 of 3 - 19+ 3-dose series) 12/04 HPV/Cotest (21-29) 2014 HPV VACCINES (1 - 3-dose SCDM series) 2020 CERVICAL CANCER SCREENING 12/21/2023 HPV/Cotest (30-65) 12/21/2023 PAP SMEAR 12/21/2023 INFLUENZA VACCINE (#1) 2025 04/19/2018 Insurance BCBS BLUE ACCESS/TRUE BLUE PPO Care Teams Dry Cleaner Hand Relationship Specialty Start Date End Date Kassidy Miller MD [address] [phone] PCP - General Genetics 05/22/18
--- OUTSIDE RECORDS SUMMARY | 2025-06-11 14:46 | XMS_ITS | Encounter Summary ---
Author Organization [facility] Address [address] [place] [address] Care Team Providers Care Project Coordinator Rn Name Role Phone Flor Zabala NP Primary Care Provider [phone] Flora Ames MD Unavailable [phone] Jimmy Raphael Primary Care Provider Encounter Details Date Type Department Care Team (Late st Contact Info) Description 04/30/2017 [facility] [address] [address] Yumiko Fletcher, [facility] Social History Tobacco Use Types Packs/Day Years [...] Results * VITAMIN D, 25 [place] (12/30/2016) VITAMIN D 25 HYDROXY S/P/B 80.5 12/30/2016 us Doc [facility] Abstract LABORATORY Final Result * CBC (OUTSIDE LAB) (12/29/2016) WBC 4.3 HGB 13.2 HCT 39.5 PLT 265 RBC 4.95 12/29/2016 us Doc [facility] Abstract LAB-OUTSIDE/ABSTRACTED Final Result * (ABNORMAL) BASIC METABOLIC PANEL (12/29/2016) Pathologist [facility] SODIUM S/P/B 140 POTASSIUM S/P/B 4.6 CO2 22 CHLORIDE S/P/B 100 GLUCOSE 99 mg/dL CALCIUM S/P/B 9.7 BUN 15 CREATININE S/P/B 0.85 0.5 - 1.0 EGFR AFR. AMER. 112(A) <=90 EGFR NON-AFR. AMER. 97(A) <=90 12/29/2016 us Doc [facility] Abstract LABORATORY Final Result * THYROID STIM HORMONE, TSH (12/29/2016) Pathologist [facility] TSH 2.250 12/29/2016 us Doc [facility] Abstract LABORATORY Final Result * CBC (OUTSIDE LAB) (07/21/2016) WBC 4.6 HGB 12.6 HCT 37.9 PLT [...] filedocumented in this encounter Care Teams Project Coordinator Rn Relationship Specialty Start Date End Date Flor Zabala NP PCP - General FAMILY PRACTICE 01/05/16 09/24/22 Jimmy Raphael PA [address] [place] [address] PCP - General PHYSICIAN RISK AND INSURANCE MANAGER 09/25/22 Flora Ames MD [address] [place] [address] Julio C Wood Repatcher CARDIOVASCULAR DISEASE 05/02/17 documented as of this encounter
--- OUTSIDE RECORDS SUMMARY | 2025-06-11 14:46 | XMS_ITS | Encounter Summary ---
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 [place], [place] [address] PCP - General PHYSICIAN RUBBER BALL FINISHER 09/25/22 Flora Ames MD [address] [place], [place] [address] [place] Levee Superintendent CARDIOVASCULAR DISEASE 05/02/17 documented as of this encounter
--- OUTSIDE RECORDS SUMMARY | 2025-06-11 14:46 | XMS_ITS | Clinical Summary ---
Author Organization [facility] Address [address] [place] [address] Care Team Providers Care Brake Reliner Name Role Phone Flora Ames MD Unavailable [phone] Jimmy Raphael Primary Care Provider [phone] Allergies Active Allergy Reactions Criticality Noted Date [...] 1 TABLET BY MOUTH TWICE DAILY for 30 04/10/2024 Active norgestimate-et hinyl estradiol (ESTARYLLA) 0.25-35 [...] Rotator cuff tendonitis, right 01/04/2021 Subaortic stenosis 05/07/2017 Palpitations 05/07/2017 Congenital heart disease Family History Medical History Relation Comments Diabetes [...] 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 Not on file Not [...] with HPV 12/21/2023 COVID-19 Vaccine ( season) 2025 09/09/2020, 08/09/2020, 08/09/2019 Influenza Adult (#1) 2025 05/03/2019, 05/07/2015, 06/01/2010 DTaP, Tdap and Td Vaccines (9 - Td or Tdap) 11/10/2026 11/10/2016, 03/19/2009, 06/11/2008, Additional history exists Hepatitis B Vaccines Completed 12/04/1997, 06/06/1994, 04/06/1994, Additional history exists Meningococcal Vaccine Aged Out 06/11/2008 No janene saji eligible based on patient's age to complete this topic Hepatitis A Vaccines Completed 03/19/2009, 06/11/20 08 HPV Vaccines Completed 11/12/2015, 09/2014, 06/01/2010 Meningococcal [...] patient's age to complete this topic Insurance [facility] Care Teams Brake Reliner Relationship Specialty Start Date End Date Jimmy Raphael PA [address] [facility] [address] [place], [place] [address] PCP - General PHYSICIAN MANAGER COMBINATION 09/25/22 Flora Ames MD [address] [facility] [address] [place] [address] Kemp Oil Drilling Engineer CARDIOVASCULAR DISEASE 05/02/17
--- OUTSIDE RECORDS SUMMARY | 2025-06-11 14:46 | XMS_ITS | Encounter Summary ---
Author Organization [facility] Address [address] [place] [address] Care Team Providers Care Coating Supervisor Name Role Phone Angie Velazquez MD Unavailable [phone] Stephanie Anderson Unavailable [phone] Unknown, Notinfile Primary Care Provider Unavail able Roberta Johnson MD Primary Care Provider Reason for Visit * Reason Onset Date Comments Scheduling Appointments 06/02/2024 Schedule patient for Imaging Lumbar/Sacral Facet Medial Branch Block Bilateral (91566) Encounter Details Date Type Department Care Team (Late st Contact Info) Description 06/02/2024 Telephone [facility] [address] [facility] [address] [place] [phone] Kiara Pollock MD [address] [place] [address] Scheduling Appointments (Schedule patient for Imaging Lumbar/Sacral Facet Medial Branch Block Bilateral ([address]) ) Social History Tobacco Use Types Packs/Day [...] on file Legal Sex Female 1:47 AM FOOD CONCESSION MANAGER Gender Identity Not on file Sexual Orientation Not on file documented as of this encounter Plan of Treatment Not on file documented as of this encounter Goals Goal Patient Goal Type Associated Problems Recent Progress Patient-Stated? Author CCM Chronic Pain Care Plan Chronic Care Management Yes Amparo Talley RN Note: Problem: Chronic Pain [...] on filedocumented in this encounter Care Teams Coating Supervisor Relationship Specialty Start Date End Date Unknown, Notinfile PCP - General 04/29/24 10/15/24 Roberta Johnson MD [address] [facility] [address] [place] [address] PCP - General Family Practice 10/16/24 Angie Velazquez MD Referring Physician Cardiology 07/25/18 Stephanie Anderson CNS [address] [place] [address] Nurse Practitioner Psychiatry 03/28/22 documented as of this encounter
--- OUTSIDE RECORDS SUMMARY | 2025-06-11 14:46 | XMS_ITS | Encounter Summary ---
Author Organization [facility] Address [address] [place] [address] Phone Care Team Providers Care Adventure Education Teacher Name Role Phone Flor Zabala NP Primary Care Provider [phone] Angie Velazquez MD Unavailable [phone] Otto Potts MD, Leonardo Walden Primary Care Provide r Stephanie Anderson HOUSEHOLD APPLIANCE INSTALLER Unavailable [phone] Jimmy Raphael Primary Care Provider [phone] Unknown, Notinfile Primary Care Provider Unavail able Roberta Johnson MD Primary Care Provider Encounter Details Date Type Department Care Team (Late st Contact Info) Description 11/06/2018 Telephone [facility] Cardiology [address] [facility] Advanced Medicine 8th [place] [address] [place] [address] Angie Velazquez MD [address] [place] [address] Social History Tobacco Use Types Packs/Day Years Used Date Smoking Tobacco: Never Smokeless Tobacco: Never Alcohol Use Standard Drinks/Week Comments No 0 (1 standard drink = 0.6 oz pur e alcohol) Comments Unknown Sex and Gender Information Value Date Recorded Sex Assigned at Not on file Legal Sex Female 1:47 AM EVENT COORDINATOR Gender Identity Not on file Sexual Orientation [...] the result is from a facility outside [facility] . 07/23/2022 07/23/2022 08/02/2022 3:05 AM EVENT COORDINATOR COVID: Recovered Comment:Added based on recent COVID infection. 08/02/2022 08/03/2022 10/31/2022 3:05 AM C DT documented as of this encounter Care Teams Adventure Education Teacher Relationship Specialty Start Date End Date Flor Zabala NP PCP - General 02/13/17 03/27/22 Leonardo Menjivar Jr., MD [address] [place] [place] [id number] PCP - General Internal Medicine 03/28/22 09/19/22 Jimmy Raphael PA [address] [place] [address] PCP - General Physician Relocation Associate 09/20/22 04/20/24 Unknown, Notinfile PCP - General 04/29/24 10/15/24 Roberta Johnson MD [address] [place] [address] [address] [place] [address] PCP - General Family Practice 10/16/24 Angie Velazquez MD Referring Physician Cardiology 07/25/18 Stephanie Anderson CNS [address] [place] [address] Nurse Practitioner Psychiatry 03/28/22 documented as of this encounter
--- OUTSIDE RECORDS SUMMARY | 2025-06-11 14:46 | XMS_ITS | Encounter Summary ---
Author Organization [facility] Address [address] [place] [address] Phone Care Team Providers Care Fancy Stitcher Name Role Phone Flor Zabala NP Primary Care Provider [phone] Angie Velazquez MD Unavailable Otto Potts MD, Leonardo Walden Primary Care Provide r Stephanie Anderson [facility] Unavailable [phone] Jimmy Raphael Primary Care Provider [phone] Unknown, Notinfile Primary Care Provider Unavail able [...] on file Legal Sex Female 1:47 AM MANAGER MARKET DEVELOPMENT Gender Identity Not on file Sexual Orientation [...] the result is from a facility outside [facility] . 07/23/2022 07/23/2022 08/02/2022 3:05 AM MANAGER MARKET DEVELOPMENT COVID: Recovered Comment:Added based on recent COVID infection. 08/02/2022 08/03/2022 10/31/2022 3:05 AM C DT documented as of this encounter Care Teams Fancy Stitcher Relationship Specialty Start Date End Date Flor Zabala NP PCP - General 02/13/17 03/27/22 Leonardo Menjivar Jr., MD [address] [place] [id number] PCP - General Internal Medicine 03/28/22 09/19/22 Jimmy Raphael PA [facility] [place] [address] PCP - General Physician Pan Greaser 09/20/22 04/20/24 Unknown, Notinfile PCP - General 04/29/24 10/15/24 Roberta Johsnon MD [address] [place] [address] [address] [place] [address] PCP - General Family Practice 10/16/24 Angie Velazquez MD Referring Physician Cardiology 07/25/18 Stephanie Anderson CNS [address] [place] [address] Nurse Practitioner Psychiatry 03/28/22 documented as of this encounter
--- OUTSIDE RECORDS SUMMARY | 2025-06-11 14:46 | XMS_ITS | Encounter Summary ---
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 [place], [place] [id number] PCP - General PHYSICIAN CAR DRIVER 09/25/22 Flora Ames MD [address] [place], [place] [id number] Hunter Manager Research And Development CARDIOVASCULAR DISEASE 05/02/17 documented as of this encounter
--- OUTSIDE RECORDS SUMMARY | 2025-06-11 15:26 | XMS_ITS | Encounter Summary ---
Author Organization [facility] - [facility] Address [address] [place] [address] Care Team Providers Care Plate Straightener Name Role Phone Flor Zabala NP Primary Care Provider [phone] Flora Ames MD Unavailable [phone] Jimmy Raphael Primary Care Provider [phone] Encounter Details Date Type Department Care Team (Late st Contact Info) Description 06/21/2021 MobileAds Message Enc [facility] Medical Group Multispecialty Care - [facility] [address] [facility], [address] [place] [address] Roberta Roman, COTTON CLASSER-C [address] [address] [place] [address] RE: Other Social History Tobacco [...] 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 No / Unsure 06/22/2021 2:59 PM [place] GOLD ATTENDANT documented as of this encounter Plan of Treatment Not on file documented as of this encounter Visit Diagnoses Not on filedocumented in this encounter Care Teams Plate Straightener Relationship Specialty Start Date End Date Flor Zabala NP PCP - General FAMILY PRACTICE 01/05/16 09/24/22 Jimmy Raphael PA [address] [id number] [place], [place] [id number] PCP - General PHYSICIAN ON SITE WASTEWATER SYSTEMS TECHNICIAN 09/25/22 Flora Ames MD [address] [facility] [address] [place], [place] [id number] Julio C Cna Instructor CARDIOVASCULAR DISEASE 05/02/17 documented as of this encounter
--- OUTSIDE RECORDS SUMMARY | 2025-06-11 15:26 | XMS_ITS | Clinical Summary ---
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 [address] [place], [place] [address] PCP - General PHYSICIAN SALES MERCHANDISER 09/25/22 Flora Ames MD [address] [facility] [address] [place] [address] [place] Spindraw Operator CARDIOVASCULAR DISEASE 05/02/17
--- OUTSIDE RECORDS SUMMARY | 2025-06-11 15:26 | XMS_ITS | Encounter Summary ---
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 [place], [place] [address] PCP - General PHYSICIAN PANTRY GOODS MAKER 09/25/22 Flora Ames MD [address] [place], [place] [address] [place] Runway Model CARDIOVASCULAR DISEASE 05/02/17 documented as of this encounter
--- OUTSIDE RECORDS SUMMARY | 2025-06-11 15:26 | XMS_ITS | Clinical Summary ---
Author Organization [facility] Address [address] [facility] [place] [address] Phone Care Team Providers Care Senior Chemist Name Role Phone Kassidy Miller MD Primary Care Provider [phone] Allergies Active Allergy Reactions Criticality Noted Date [...] Comments Blood Pressure 131/75 06/17/2018 6:45 PM FORGING OPERATOR Pulse 77 06/17/2018 6:45 PM FORGING OPERATOR Temperature 36.7 C (98.1 F) 06/17/2018 2:07 PM FORGING OPERATOR Respiratory Rate 18 06/17/2018 2:07 PM FORGING OPERATOR Oxygen Saturation 99% 06/17/2018 6:45 PM FORGING OPERATOR Inhaled Oxygen Concentration - - Weight 82.6 kg (182 lb) 06/17/2018 2:07 PM FORGING OPERATOR Height 158.8 cm (5' 2.5) 06/17/2018 2:07 PM FORGING OPERATOR Body Mass Index 32.76 06/17/2018 2:07 PM FORGING OPERATOR Plan of Treatment Health Maintenance Due Date Last Done Comments DTAP/TDAP/TD VACCINES (1 - Tdap) 2012 HEPATITIS B VACCINES (1 of 3 - 19+ 3-dose series) 12/04 HPV/Cotest (21-29) 2014 HPV VACCINES (1 - 3-dose SCDM series) 2020 CERVICAL CANCER SCREENING 12/21/2023 HPV/Cotest (30-65) 12/21/2023 PAP SMEAR 12/21/2023 INFLUENZA VACCINE (#1) 2025 04/19/2018 Insurance [employer] BLUE ACCESS/TRUE BLUE PPO Care Teams Senior Chemist Relationship Specialty Start Date End Date Kassidy Miller MD [address] [phone] PCP - General Genetics 05/22/18
--- OUTSIDE RECORDS SUMMARY | 2025-06-11 15:26 | XMS_ITS | Patient Health Record ---
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 Role Phone Alex VALENCIA, [facility] Primary Care Provider Unavailable Abby Adam Unavailable [phone] Oleg Pang Unavailable [phone] Alfonzo Olea Unavailable [phone] Allergies Allergen (clinical drug ingredient) Drug/Non Drug Allergy documented on EMR Reaction Allergy Type Onset Date Status amoxicillin / clavulanate Augmentin Unknown Drug Allergy Active Suprax Unknown Drug Allergy Active amoxicillin Amoxicillin Unknown Drug Allergy Act leandra erythromycin Erythromycin Unknown Drug Allergy A ctive Results Component Value Reference Range Flag Notes LITHIUM (613) Reviewed date:09/29/2024 04:28:47 PM Interpretation: Performing Lab:[facility] TIJERINA-[id number] Connie [id number] Homar Scott MD Notes/Report: LITHIUM <0.3 0.6-1.2 mmol/L L VALPROIC ACID (916) Reviewed date:09/29/2024 04:18:19 PM Interpretation: Performing Lab:[facility] [id number] Pam [id number] Homar Scott MD Notes/Report: VALPROIC ACID 33.6 50.0-100.0 mg/L L Reason For Referral No Information Medications Medication SIG (Take, Route, Frequency, Duration) Notes Start Date End Date Status fluvoxaMINE Maleate 100 MG Tablet 1 tablet at bedtime Orally Once a day; Duration: 30 days 05/26/2025 Active Paliperidone ER 6 MG Tablet Extended Release 24 Hour 1 tablet in the morning Orally Once a day; Duration: 30 days 05/26/2025 Active hydrOXYzine HCl 10 MG Tablet 1 tablet Orally three times a day; Duration: 30 days d/c 25 mg dose 05/26/2025 Active Biotin 39975 MCG Tablet Disintegrating 1 tablet Orally once a day 05/15/2024 Not-Taking Ithaca Carbonate 150 MG Capsule TAKE 1 CAPSULE BY MOUTH TWICE DAILY Oral Twice a day; Duration: 30 days Active fluvoxaMINE Maleate 100 MG Tablet 1 tablet at bedtime Orally Once a day; Duration: 30 days Active Estarylla 0.25-35 MG-MCG Tablet TAKE 1 TABLET BY MOUTH DAILY Oral; Duration: 28 Days Active Melatonin 3 MG Tablet 1 tablet at bedtime as needed Orally bedtime; Duration: 90 days Active Divalproex Sodium ER 500 MG Tablet Extended Release 24 Hour TAKE 1 TABLET BY MOUTH TWICE DAILY Oral twice a day; Duration: 30 days 05/26/2025 08/24/2025 Active Estarylla 0.25-35 MG-MCG Tablet 1 tablet Orally Once a day Active Ithaca Carbonate 150 MG Capsule TAKE 1 CAPSULE BY MOUTH TWICE DAILY Oral Twice a day; Duration: 30 days 05/26/2025 Active Propranolol HCl ER 160 MG Capsule Extended Release 24 Hour 1 capsule Orally Once a day Active Social History Tobacco Use: Social History Observation Description Date Details (start date - stop date) Never Smoker NA - NA Sex Assigned At : Social History Observation Description Sex Assigned At Female Social History Miscellaneous: Social Info Question Answer Notes Advance Care Planning Are you your own decision-maker Yes Do you have Power of Tractor Technician for Health or [facility]? No Safety issues: Are there any firearms in the house? No Sexual History: Social Info Question Answer Notes Sexual History Had sex in the past 12 months (vaginal, oral, or anal)? Yes with Men only Prevention strategies discussed: Other Social History Social Info Question Answer Notes Household: Marital Status: Number of Adults in household: 4 Number of Children in Household: 0 Level of Education: Finished College Household: Social Info Question Answer Notes Household Marital status: Number of adults in household: 4 l maty in parents basement Number of children in household: 0 Number of siblings: 1 older sister Level of education: not finished college MA work at [employer] Marital status of the child's parents: Any household tobacco use? No Any household pets? Yes 2 CATS AND 2 dogs Drug/Alcohol: Social Info Question Answer Notes Drugs Have you used drugs other than those for medical reasons in the past 12 months? No AUDIT-C (Standard) Did you have a drink containing alcohol in the past year? 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 Den ies Do you drink alcohol? No Problems Problem Type SNOMED Code ICD Code Onset Dates Problem Status W/U Status Risk Notes Problem Severe depressed bipolar I disorder without psychotic features (47487445) Bipolar disorder, current episode depressed, severe, without psychotic features (F31.4) Active confirmed Problem Primary insomnia (7886844) Primary insomnia (F51.01) Active confirmed Problem Obsessive-compuls leandra disorder (030975357) Mixed obsessional thoughts and acts (F42.2) Active confirmed Problem Depression Screening (871263774) Encounter for screening for depression (Z13.31) Active confirmed Problem Generalized anxiety disorder (74446315) FAITH (generalized anxiety disorder) (F41.1) Active confirmed Problem Attention deficit hyperactivity disorder (532411187) ADHD (attention deficit hyperactivity disorder), combined type (F90.2) Active confirmed Problem Insomnia disorder related to another mental disorder (41444748) Insomnia related to another mental disorder (F51.05) Active confirmed Problem Bipolar disorder (73020016) Bipolar disorder with depression (F31.9) Active confirmed Problem Bipolar disorder (40399321) Bipolar depression (F31.9) Active confirmed Problem Mild mixed bipolar I disorder (60803805) Mild mixed bipolar I disorder (F31.61) Active confirmed Problem Essential hypertension (40260065) Hypertension, unspecified type (401.9) Active confirmed Vital Signs Heart Rate 73 /min 05/26/2025 Respiratory Rate 16 /min 05/26/2025 Height-cm 158.75 cm 05/26/2025 Blood pressure diastolic 84 mm Hg 05/26/2025 Weight-kg 107.14 kg 05/26/2025 Height 62.5 in 05/26/2025 Blood pressure systolic 137 mm Hg 05/26/2025 Weight 236.2 lbs 05/26/2025 BMI 42.51 kg/m2 05/26/2025 Procedures Procedure Date Ordered Date Performed Result Body Sit e ADHD Testing 07/24/2024 N/A Encounters Encounter Location Date Provider Diagnosis [facility] [address] [facility] [address] [place] [address] 06/17/2024 Abby Thery FAITH (generalized anxiety disorder) F41.1 ; Primary insomnia F51.01 ; Bipolar disorder with depression F31.9 and Mixed obsessional thoughts and acts F42.2 [facility] [address] [facility] [address] [place] [address] 07/17/2024 Abby Thery FAITH (generalized anxiety disorder) F41.1 ; Primary insomnia F51.01 ; Mixed obsessional thoughts and acts F42.2 ; Bipolar disorder with depression F31.9 and ADHD (attention deficit hyperactivity disorder), combined type F90.2 [facility] [place] [address] [facility] [address] [place] [address] 07/24/2024 Oleg Pang ADHD (attention deficit hyperactivity disorder), combined type F90.2 [facility] [address] [place] [address] 08/25/2024 Abby Thery FAITH (generalized anxiety disorder) F41.1 ; Primary insomnia F51.01 ; Mixed obsessional thoughts and acts F42.2 ; Bipolar disorder with depression F31.9 and ADHD (attention deficit hyperactivity disorder), combined type F90.2 [facility] [address] [facility] [address] [place] [address] 09/15/2024 Abby Thery FAITH (generalized anxiety disorder) F41.1 ; Primary insomnia F51.01 ; Mixed obsessional thoughts and acts F42.2 ; Bipolar disorder with depression F31.9 and ADHD (attention deficit hyperactivity disorder), combined type F90.2 [facility], [facility] [address] [place] [address] 09/17/2024 Alfonzo Clubb Bipolar depression F31.9 ; FAITH (generalized anxiety disorder) F41.1 ; Primary insomnia F51.01 ; Mixed obsessional thoughts and acts F42.2 and ADHD (attention deficit hyperactivity disorder), combined type F90.2 [facility] [address] [place] [address] 10/06/2024 Abby Thery Bipolar depression F31.9 ; FAITH (generalized anxiety disorder) F41.1 ; Primary insomnia F51.01 ; Mixed obsessional thoughts and acts F42.2 ; ADHD (attention deficit hyperactivity disorder), combined type F90.2 and Bipolar disorder with depression F31.9 [place] [address] [place] [address] 11/13/2024 Abby Thery Bipolar depression F31.9 ; FAITH (generalized anxiety disorder) F41.1 ; Primary insomnia F51.01 ; Mixed obsessional thoughts and acts F42.2 ; ADHD (attention deficit hyperactivity disorder), combined type F90.2 ; Bipolar disorder with depression F31.9 and Encounter for screening for depression Z13.31 [place] [address] [facility] [address] [place] [address] 01/30/2025 Abby Thery FAITH (generalized anxiety disorder) F41.1 ; Primary insomnia F51.01 ; Mixed obsessional thoughts and acts F42.2 ; ADHD (attention deficit hyperactivity disorder), combined type F90.2 ; Encounter for screening for depression Z13.31 ; Bipolar disorder with depression F31.9 and Negative depression screening Z13.31 [place] [address] [facility] [address] [place] [address] 05/26/2025 Abby Thery FAITH (generalized anxiety disorder) F41.1 ; Primary insomnia F51.01 ; Mixed obsessional thoughts and acts F42.2 ; ADHD (attention deficit hyperactivity disorder), combined type F90.2 ; Encounter for screening for depression Z13.31 and Bipolar disorder with depression F31.9 [place] [address] [place] [address] 06/17/2024 Abby Thery [place] [address] [place] [address] 09/17/2024 Abby Thery [facility], [place] [address] [place] [address] 05/19/2025 Abby Thery Bipolar disorder wit h depression F31.9 [facility], [facility] [address] [place] [address] 06/27/2024 Abby Thery [facility], [facility] [address] [place] [address] 08/02/2024 Abby Thery [facility], [facility] [address] [place] [address] 08/28/2024 Abby Thery [facility], [facility] [address] [place] [address] 09/03/2024 Abby Thery Bipolar disorder wit h depression F31.9 [facility], [facility] [address] [place] [address] 09/17/2024 Abby Thery [facility], [facility] [address] [place] [address] 10/14/2024 Abby Thery [facility], [facility] [address] [place] [address] 10/14/2024 Abby Thery [facility], [facility] [address] [place] [address] 10/14/2024 Abby Thery [facility], [facility] [address] [place] [address] 12/12/2024 Abby Thery [facility], [facility] [address] [place] [address] 03/26/2025 Abby Thery Bipolar disorder wit h depression F31.9 and [facility] [place] [facility] drug therapy Z79.899 [facility], [facility] [address] [place] [address] 04/24/2025 Abby Thery Assessments Encounter Date Diagnosis (ICD Code) Assessment Notes Treatment Notes Treatment Clinical Notes Section Notes 06/17/2024 FAITH (generalized anxiety disorder) (ICD-10 - [...] 150mg BID - educated on labs for Ithaca and Depakote level. b. Follow up MIRELA and therapy scheduled- will make list of concerns for therapy and work on situational stressors, fears, and emotions in therapy C. Abilify 30 mg at bedtime- prescribed 05/05/24 from [facility] walk in clinic labs completed 05/28/24 Valporic acid 36, Ithaca 0.4, WBC, CMP, CARDIAC enzymes scanned into [...] HTN- new patient appt schedules and seen convention planner with HTN and adjusting rx a. Monitor [...] psychosis. Cannabis/marijuana information: http_s://shaheed.nih.g ov/publications/janice gfacts/cannabis-mar ijuana http_s://www.Neovasc/cannabis- kid-aqrjmlbv-hcgnke avinash-adhd/ http_s://www.maribel.o rg/Zsozl-Obuldw-Ryt ness/Mental-Health- Conditions http_s://psychPro.comr Sencha.com/depression/t ol-vejhkffvi-ljimwk br-fg-fakizagzct#tr eatments http__s://www.nimh. nih.gov/health/topi cs/afrikf-mqdupl-qq dications http__s://www.maribel. org/Lbcuy-Mkjquc-Sn lness/Treatments/Me skaj-Iawlib-Hrcurrg ions educated on all medications, benefits, side [...] Monitor medication response. C. Encourage suicide hotline (092) use if needed. D. advised when to [...] in hands - plan to taper off Ithaca - educated on labs for Ithaca and Depakote level. . Follow up MIRELA and therapy scheduled- will make list of concerns for therapy and work on situational stressors, fears, and emotions in therapy Abilify 30 mg at bedtime- prescribed 05/05/24 from [facility] walk in clinic- discuss may plan to decrease dose in furture - patient has had recent eduardo/hypomania and depression recently labs completed 05/28/24 Valporic acid 36, Ithaca 0.4, WBC, CMP, CARDIAC enzymes scanned into [...] Denies plan/intent. a. Close monitoring. b. Encourage 908/911 hotline use if needed. c. Follow up [...] HTN- new patient appt schedules and seen convention planner with HTN and adjusting rx a. Monitor [...] psychosis. Cannabis/marijuana information: http_s://shaheed.nih.g ov/publications/janice gfacts/cannabis-cara cheng http_s://www.FamilyLeaf.Pinkdingo/cannabis- ngb-cbwnqdwr-aysjry avinash-adhd/ http_s://www.maribel.o /Ssyuw-Dhjvke-Nmj ness/Mental-Health- Conditions http_s://psychcentr Sencha.com/depression/t bi-plmrflted-ghypdw pn-fr-trgivqsame#tr eatments http__s://www.nimh. nih.gov/health/topi cs/ecxlxh-jemglf-lq dications http__s://www.maribel. org/Cltwd-Bmofbj-La lness/Treatments/Me wvde-Cahvof-Qynljhs ions educated on all medications, benefits, side [...] Monitor medication response. C. Encourage suicide hotline (729) use if needed. D. advised when to [...] for near future plan to taper off Ithaca r/t tremors - educated on labs for Ithaca and Depakote level. . Follow up MIRELA and therapy scheduled- will make list of concerns for therapy and work on situational stressors, fears, and emotions in therapy labs completed 05/28/24 Valporic acid 36, Ithaca 0.4, WBC, CMP, CARDIAC enzymes scanned into chart LABS SCHEDULED today PCP will add Ithaca and Depakote Gene sight reviewed and Abilify [...] Denies plan/intent. a. Close monitoring. b. Encourage 882/075 hotline use if needed. c. Follow up [...] abuse, and addiction before prescribing stimulant medicines. 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 Random [facility] prescription reviewed local pharmacy in [place], no [...] psychosis. Cannabis/marijuana information: http_s://shaheed.nih.g ov/publications/janice gfacts/cannabis-mar ijuana http_s://www.Neovasc/cannabis- aqm-alndhwwg-lrgmus avinash-adhd/ http_s://www.maribel.o rg/Pzmnm-Arfrxh-Baw ness/Mental-Health- Conditions http_s://psychPro.comr Sencha.com/depression/t yd-gwfnxpglf-tmxclb ii-xz-dnymijwwys#tr eatments http__s://www.nimh. nih.gov/health/topi cs/bfjijz-cfisji-po dications http__s://www.maribel. org/Odszj-Lpugjr-Tn lness/Treatments/Me hwma-Nmjtqp-Yzqnzcw ions educated on all medications, benefits, side [...] with first generation antipsychotics) and more. 09/15/2024 FAITH (generalized anxiety disorder) (ICD-10 - [...] Monitor medication response. C. Encourage suicide hotline (168) use if needed. D. advised when to [...] future- pateint agreed plan to taper off Ithaca r/t tremors - educated on labs for Ithaca and Depakote level.- patient reported will have done Sunday . Follow up MIRELA and therapy scheduled- will make list of concerns for therapy and work on situational stressors, fears, and emotions in therapy labs completed 05/28/24 Valporic acid 36, Ithaca 0.4, WBC, CMP, CARDIAC enzymes scanned into [...] Denies plan/intent. a. Close monitoring. b. Encourage 533/631 hotline use if needed. c. Follow up [...] abuse, and addiction before prescribing stimulant medicines. 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 Random [facility] [place] prescription reviewed local pharmacy in [place], no [...] psychosis. Cannabis/marijuana information: http_s://shaheed.nih.g ov/publications/janice gfacts/cannabis-mar ijuana http_s://www.Neovasc/cannabis- kis-dkrwpnjw-pwsdsr avinash-adhd/ http_s://www.maribel.o rg/Iucea-Csyqnk-Rhp ness/Mental-Health- Conditions http_s://psychPro.comr Sencha.com/depression/t io-jgncjgogf-gqsgjc hc-vz-ykjdqwuxty#tr eatments http__s://www.nimh. nih.gov/health/topi cs/gmawmc-gufyie-ol dications http__s://www.maribel. org/Agvgd-Ilcaoq-Lu lness/Treatments/Me vruj-Pjguzf-Iprijba ions educated on all medications, benefits, side [...] of treatment with your doctor and caregivers. Ithaca has been associated with an increased risk of Ebstein's anomaly, a heart valve defect. Even though data suggest that the risk of Ebstein's anomaly from first trimester use of lithium is very low, an ultrasound of the heart is recommended at 16 to 20 weeks of gestation. Ithaca levels should be monitored monthly in early [...] usual. Are There Any Risks For Taking Ithaca For Long Periods Of Time? Hypothyroidism (low levels of thyroid hormone) may occur with long-term lithium use. Rare kidney problems have been associated with long-term use of lithium. The risk increases with high levels of lithium. Your doctor will monitor your kidney function at routine check-ups to ensure this does not occur. Summary of Black Box Warnings Ithaca Toxicity Ithaca toxicity is closely related to lithium blood [...] of treatment with your doctor and caregivers. Ithaca has been associated with an increased risk of Ebstein's anomaly, a heart valve defect. Even though data suggest that the risk of Ebstein's anomaly from first trimester use of lithium is very low, an ultrasound of the heart is recommended at 16 to 20 weeks of gestation. Ithaca levels should be monitored monthly in early [...] usual. Are There Any Risks For Taking Ithaca For Long Periods Of Time? Hypothyroidism (low levels of thyroid hormone) may occur with long-term lithium use. Rare kidney problems have been associated with long-term use of lithium. The risk increases with high levels of lithium. Your doctor will monitor your kidney function at routine check-ups to ensure this does not occur. Summary of Black Box Warnings Ithaca Toxicity Ithaca toxicity is closely related to lithium blood [...] monitor tremors in hands - labs 09/30 Ithaca 0.3 Depakote 33.6 Discuss Gene sight and Invega for Bipolar to control symptoms - Invega 3 mg daily continue discuss and educated on Invega injections for near future- pateint agreed plan to taper off Ithaca r/t tremors - educated on labs for Ithaca and Depakote level.- [facility] . Follow up [...] Denies plan/intent. a. Close monitoring. b. Encourage 998/781 hotline use if needed. c. Follow up [...] abuse, and addiction before prescribing stimulant medicines. 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 Random [facility] prescription reviewed local pharmacy in [place] no [...] psychosis. Cannabis/marijuana information: http_s://shaheed.nih.g ov/publications/janice gfacts/cannabis-mar ijuana http_s://www.Neovasc/cannabis- uug-tqwxwucz-twplzb avinash-adhd/ http_s://www.maribel.o /Lbkla-Ljcvbc-Xdp ness/Mental-Health- Conditions http_s://psychcentr Sencha.com/depression/t qd-rdkrghraz-vmcbgb fh-fw-sszefipfnj#tr eatments http__s://www.nimh. nih.gov/health/topi cs/tgieyj-ahdkst-yu dications http__s://www.maribel. org/Qkjul-Ykrsli-Kt lness/Treatments/Me hwej-Galgaf-Tdqbzlm ions educated on all medications, benefits, side [...] of treatment with your doctor and caregivers. Ithaca has been associated with an increased risk of Ebstein's anomaly, a heart valve defect. Even though data suggest that the risk of Ebstein's anomaly from first trimester use of lithium is very low, an ultrasound of the heart is recommended at 16 to 20 weeks of gestation. Ithaca levels should be monitored monthly in early [...] usual. Are There Any Risks For Taking Ithaca For Long Periods Of Time? Hypothyroidism (low levels of thyroid hormone) may occur with long-term lithium use. Rare kidney problems have been associated with long-term use of lithium. The risk increases with high levels of lithium. Your doctor will monitor your kidney function at routine check-ups to ensure this does not occur. Summary of Black Box Warnings Ithaca Toxicity Ithaca toxicity is closely related to lithium blood [...] B. Monitor medication response. Encourage suicide hotline (674) use if needed.. advised when to seek [...] monitor tremors in hands - labs 09/30 Ithaca 0.3 Depakote 33.6 Discuss Gene sight and [...] contraception during tx plan to taper off Ithaca r/t tremors - educated on labs for Ithaca and Depakote level.- [facility] . Follow up [...] Denies plan/intent. a. Close monitoring. b. Encourage 818/391 hotline use if needed. c. Follow up [...] abuse, and addiction before prescribing stimulant medicines. 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 Random [facility] [place] prescription reviewed local pharmacy in [place], no [...] psychosis. Cannabis/marijuana information: http_s://shaheed.nih.g ov/publications/janice gfacts/cannabis-mar ijuana http_s://www.FamilyLeaf.Pinkdingo/cannabis- jlj-adbbelxy-ldiyol avinash-adhd/ http_s://www.maribel.o rg/Irbpi-Skjhwd-Jwv ness/Mental-Health- Conditions http_s://psychcentr al.com/depression/t pr-nmdofbuze-qjbwkg tv-ld-fwxzyeznli#tr eatments http__s://www.nimh. nih.gov/health/topi cs/krlzxu-bbgrdt-pm dications http__s://www.maribel. org/Yhnrt-Zynahe-Dz lness/Treatments/Me meei-Wxrmus-Bdadpcq ions educated on all medications, benefits, side [...] B. Monitor medication response. Encourage suicide hotline (146) use if needed.. advised when to seek [...] monitor tremors in hands - labs 10/28 Ithaca 0.3 Depakote 33.6 Discuss Gene sight and [...] contraception during tx plan to taper off Ithaca r/t tremors - educated on labs for Ithaca and Depakote level.- [facility] . Follow up [...] Denies plan/intent. a. Close monitoring. b. Encourage 267/594 hotline use if needed. c. Follow up [...] abuse, and addiction before prescribing stimulant medicines. 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 Random [facility] [place] prescription reviewed local pharmacy in [place], no [...] psychosis. Cannabis/marijuana information: http_s://shaheed.nih.g ov/publications/janice gfacts/cannabis-mar ijuana http_s://www.Neovasc/cannabis- kwr-lphqkdii-bckfyw avinash-adhd/ http_s://www.maribel.o rg/Ygixa-Scicpr-Cgg ness/Mental-Health- Conditions http_s://psychPro.comr Sencha.com/depression/t pw-zdofvrgfy-pmyrek kc-pq-mprcluzcsf#tr eatments http__s://www.nimh. nih.gov/health/topi cs/yfdttp-uzfimp-yn dications http__s://www.maribel. org/Fscck-Fblpdh-St lness/Treatments/Me nxbx-Bhtnfx-Zlkkzrz ions educated on all medications, benefits, side [...] common with first generation antipsychotics) and more. 03/26/2025 Bipolar disorder with depression (ICD-10 - F31.9) 05/19/2025 Bipolar disorder with depression (ICD-10 - F31.9) 05/26/2025 FAITH (generalized anxiety disorder) (ICD-10 - F41.1) Valproate (mg/L ) 68.833.6 Thyrotropin 0.99 Thyroxine free index 2.2 Thyroxine (mcg/dL) 8.3 Triiodothyronine resin uptake (%) 27 Folate 10.4 Cobalamins (pg/mL) 493 Hemoglobin a1c/hemoglobin.to dg 5.7 Cholesterol.total /cholesterol.in hdl 5.2 Cholesterol 241 Triglyceride 183 Cholesterol.non hdl 195 Cholesterol.in ldl 161 Cholesterol.in hdl 46 [place] (mmol/L) 0.5<0.3 Alanine aminotransferase (U/L) 10 Alkaline phosphatase (U/L) 66 Bilirubin (mg/dL) 0.3 Calcium (mg/dL) 9 Chloride (mmol/L) 106 Creatinine (mg/dL) 1.07 Egfr 71 Glucose (mg/dL) 87 Urea nitrogen (mg/dL) 15 Sodium (mmol/L) 137 Potassium (mmol/L) 4.4 Carbon dioxide (mmol/L) 27 Protein (g/dL) 6.7 Albumin (g/dL) 3.7 Globulin (g/dL (calc)) 3 Albumin/globulin ((calc)) 1.2 Aspartate aminotransferase (U/L) 11 Urea nitrogen/creatini ne ((calc)) 14 25-hydroxyvitamin d (ng/mL) 30 Platelets (Thousand/uL) 231 Erythrocyte distribution width (%) 14.5 Erythrocyte mean corpuscular hemoglobin concentration (g/dL) 31.6 Erythrocyte mean corpuscular hemoglobin (pg) 25.3 Erythrocyte mean corpuscular volume (fL) 80 Hematocrit (%) 36.1 Hemoglobin (g/dL) 11.4 Erythrocytes (Million/uL) 4.51 Leukocytes (Thousand/uL) 4.8 Platelet mean volume (fL) 9 1. Anxiety hx Patient reports anxiety level with intrusive thoughts and fear of night and sleep, and being alone discuss making list of thoughts, goals, plans and place in action discuss activity for day sleep hygiene education continue therapy discuss and educated on all rx Vistaril 10 mg three time a day for anxiety- PRN HX Vistaril reported 25 mg dose more on edge - therapy continue- discuss DBT/CBT therapy discuss IOP program discuss journaling, coping skills, and identify triggers insurance requires 30 days at a time with refills 2. OCD A. fluvoxamine to 100mg. - anxiety and OCD- helping B. Monitor medication response. Encourage suicide hotline (488) use if needed.. 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 Follow up [...] Denies plan/intent. a. Close monitoring. b. Encourage [employer]/444 hotline use if needed. c. Follow up [...] in moderate reduce efficacy discuss and educated patient stopped Guanfacine 1 mg daily - caused dry mouth- Qelbree- Moderate gene interaction- [...] abuse, and addiction before prescribing stimulant medicines. 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 Random UDS [place] prescription reviewed local pharmacy in [place], no [...] psychosis. Cannabis/marijuana information: http_s://shaheed.nih.g ov/publications/janice gfacts/cannabis-mar ijuana http_s://www.Neovasc/cannabis- spu-slohyrde-rctqoz avinash-adhd/ http_s://www.maribel.o /Qxupj-Kzejru-Eul ness/Mental-Health- Conditions http_s://psychPro.comr Sencha.com/depression/t nm-vwjratems-bkbvfg kb-gj-tyrgwbgczy#tr eatments http__s://www.nimh. nih.gov/health/topi cs/qzfrfo-ycnyaz-av dications http__s://www.maribel. 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 Follow up [...] in moderate reduce efficacy discuss and educated patient stopped Guanfacine 1 mg daily - caused dry mouth- Qelbree- Moderate gene interaction- [...] abuse, and addiction before prescribing stimulant medicines. 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 Random UDS [place] prescription reviewed local pharmacy in [facility], no early refills on control substance [...] psychosis. Cannabis/marijuana information: http_s://shaheed.nih.g ov/publications/janice gfacts/cannabis-mar ijuana http_s://www.FamilyLeaf.com/cannabis- hwv-utwkoexz-qkbbsz avinash-adhd/ http_s://www.maribel.o rg/Kticl-Byulyb-Vfg ness/Mental-Health- Conditions http_s://psychcentr Sencha.com/depression/t jj-obkinxmky-vpvwxq dl-zu-vfuwfrplpw#tr eatcarissa http__s://www.nimh. nih.gov/health/topi cs/crqlkg-uwwcyu-zw dications http__s://www.maribel. org/Uputm-Zexzgz-El lness/Treatments/Me vpub-Vaopcl-Zdsrviw ions educated on all medications, benefits, side [...] B. Monitor medication response. Encourage suicide hotline (573) use if needed.. advised when to seek [...] monitor tremors in hands - labs 10/28 [place] 0.3 Depakote 33.6 Discuss Gene sight and [...] contraception during tx plan to taper off [place] r/t tremors - educated on labs for [place] and Depakote level.- [facility] . Follow up [...] Denies plan/intent. a. Close monitoring. b. Encourage 200/409 hotline use if needed. c. Follow up [...] abuse, and addiction before prescribing stimulant medicines. 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 Random UDS [place] prescription reviewed local pharmacy [place], no [...] psychosis. Cannabis/marijuana information: http_s://shaheed.nih.g ov/publications/janice gfacts/cannabis-mar ijuana http_s://www.Neovasc/cannabis- rnk-rprumdae-cxcqna avinash-adhd/ http_s://www.maribel.o /Tllfs-Gcktkt-Ixp ness/Mental-Health- Conditions http_s://psychPro.comr Mensajeros Urbanos/depression/t jp-sztslgvmz-zdzywv mu-in-ouqhlqmuey#tr eatments http__s://www.nimh. nih.gov/health/topi cs/rlzupg-qwqxua-bs dications http__s://www.maribel. org/Fyxpl-Cxujki-Ww lness/Treatments/Me qdde-Gtczww-Bhupdql ions educated on all medications, benefits, side [...] monitor tremors in hands - labs 09/30 [place] 0.3 Depakote 33.6 Discuss Gene sight and Invega for Bipolar to control symptoms - Invega 3 mg daily continue discuss and educated on Invega injections for near future- pateint agreed plan to taper off [place] r/t tremors - educated on labs for [place] and Depakote level.- [facility] . Follow up [...] abuse, and addiction before prescribing stimulant medicines. 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 Random UDS [place] prescription reviewed local pharmacy in [facility], no early refills on control substance [...] psychosis. Cannabis/marijuana information: http_s://shaheed.nih.g ov/publications/janice gfacts/cannabis-mar ijuana http_s://www.FamilyLeaf.Pinkdingo/cannabis- wjo-otkhypbo-rrszfu avinash-adhd/ http_s://www.maribel.o rg/Orlkk-Ycgfbe-Oxi ness/Mental-Health- Conditions http_s://psychcentr al.com/depression/t gm-iceccszli-atbxlr yx-em-kjlolgdhcb#tr eatments http__s://www.nimh. nih.gov/health/topi cs/asbiyz-nupmjt-kw dications http__s://www.maribel. org/Aleec-Hmhxwg-Oj lness/Treatments/Me qdxc-Pfbcuy-Ranncsx ions educated on all medications, benefits, side [...] B. Monitor medication response. Encourage suicide hotline (504) use if needed.. advised when to seek [...] monitor tremors in hands - labs 09/30 [place] 0.3 Depakote 33.6 Discuss Gene sight and [...] contraception during tx plan to taper off [place] r/t tremors - educated on labs for [place] and Depakote level.- [facility] . Follow up [...] Denies plan/intent. a. Close monitoring. b. Encourage 509/451 hotline use if needed. c. Follow up [...] abuse, and addiction before prescribing stimulant medicines. 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 Random UDS [place] prescription reviewed local pharmacy in [facility], no early refills on control substance educated on non-stimulate and stimulates - Plan: Send refill to [facility]- [...] psychosis. Cannabis/marijuana information: http_s://shaheed.nih.g ov/publications/janice gfacts/cannabis-mar ijuana http_s://www.Neovasc/cannabis- hpa-ryndwrhm-qfbbda avinash-adhd/ http_s://www.maribel.o rg/Vihit-Mkfzkp-Yba ness/Mental-Health- Conditions http_s://psychPro.comr Sencha.Pinkdingo/depression/t tw-obrjvspde-yjxxvf ta-sw-liczbpxtrd#tr eatments http__s://www.nimh. nih.gov/health/topi cs/njalyc-dimusz-ly dications http__s://www.maribel. org/Rfwdw-Ulmksg-Pd lness/Treatments/Me xbbe-Yfjzrp-Nkrnizm ions educated on all medications, benefits, side [...] with first generation antipsychotics) and more. 09/17/2024 FAITH (generalized anxiety disorder) (ICD-10 - [...] Monitor medication response. C. Encourage suicide hotline (256) use if needed. D. advised when to [...] future- pateint agreed plan to taper off [place]th[place] r/t tremors - educated on labs for [place] and Depakote level.- patient reported will have done Sunday . Follow up [facility] and therapy scheduled- will make list of concerns for therapy and work on situational stressors, fears, and emotions in therapy labs completed 05/28/24 Valporic acid 36, [place]th[place] 0.4, WBC, CMP, CARDIAC enzymes scanned into [...] Denies plan/intent. a. Close monitoring. b. Encourage 257/006 hotline use if needed. c. Follow up [...] abuse, and addiction before prescribing stimulant medicines. 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 Random UDS [place] prescription reviewed local pharmacy in [facility], no early refills on control substance [...] psychosis. Cannabis/marijuana information: http_s://shaheed.nih.g ov/publications/janice gfacts/cannabis-mar ijuana http_s://www.Neovasc/cannabis- bdn-tnydcxhg-szlect avinash-adhd/ http_s://www.maribel.o rg/Tsxxa-Nslekd-Tdh ness/Mental-Health- Conditions http_s://psychcentr Sencha.com/depression/t ug-rtsgoredr-qwvxwj st-pm-xohmrqanio#tr eatments http__s://www.nimh. nih.gov/health/topi cs/ahugbd-abvibx-yc dications http__s://www.maribel. org/Ieuld-Bopdae-Nl lness/Treatments/Me tpjh-Gvlndt-Lwqzmuy ions educated on all medications, benefits, side [...] Monitor medication response. C. Encourage suicide hotline (254) use if needed. D. advised when to [...] for near future plan to taper off [place]thaca r/t tremors - educated on labs for [place]th[place] and Depakote level. . Follow up [facility] and therapy scheduled- will make list of concerns for therapy and work on situational stressors, fears, and emotions in therapy labs completed 05/28/24 Valporic acid 36, Ithaca 0.4, WBC, CMP, CARDIAC enzymes scanned into chart LABS SCHEDULED today PCP will add [place] and Depakote Gene sight reviewed and Abilify [...] Denies plan/intent. a. Close monitoring. b. Encourage 558/071 hotline use if needed. c. Follow up [...] abuse, and addiction before prescribing stimulant medicines. 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 Random UDS [place] prescription reviewed local pharmacy in [facility], no early refills on control substance [...] psychosis. Cannabis/marijuana information: http_s://shaheed.nih.g ov/publications/janice gfacts/cannabis-mar ijuana http_s://www.FamilyLeaf.Pinkdingo/cannabis- ssk-xidrmrto-rjdgvt avinash-adhd/ http_s://www.maribel.o rg/Sgrfw-Jzmqnt-Ytc ness/Mental-Health- Conditions http_s://psychcentr al.com/depression/t hr-fqxmuvrxm-oajvqp za-le-dgjnepxthz#tr eatments http__s://www.nimh. nih.gov/health/topi cs/ctmxgx-kncobf-lu dications http__s://www.maribel. org/Dgqgg-Iasvbs-Vv lness/Treatments/Me jysu-Qpplxc-Htlmhoo ions educated on all medications, benefits, side [...] with first generation antipsychotics) and more. 07/17/2024 Primary insomnia (ICD-10 - F51.01) Insomnia: [...] Monitor medication response. C. Encourage suicide hotline (697) use if needed. D. advised when to [...] in hands - plan to taper off Ithaca - educated on labs for [place]th[place] and Depakote level. . Follow up [facility] and therapy scheduled- will make list of concerns for therapy and work on situational stressors, fears, and emotions in therapy Abilify 30 mg at bedtime- prescribed 05/05/24 from [facility] walk in clinic- discuss may plan to decrease dose in furture - patient has had recent eduardo/hypomania and depression recently labs completed 05/28/24 Valporic acid 36, [place]thaca 0.4, WBC, CMP, CARDIAC enzymes scanned into [...] Denies plan/intent. a. Close monitoring. b. Encourage 954/091 hotline use if needed. c. Follow up [...] HTN- new patient appt schedules and seen convention planner with HTN and adjusting rx a. Monitor [...] psychosis. Cannabis/marijuana information: http_s://shaheed.nih.g ov/publications/janice gfacts/cannabis-mar ijuana http_s://www.Neovasc/cannabis- rjv-ukwxwygw-czullj avinash-adhd/ http_s://www.maribel.o /Qnuho-Gfuwko-Cph ness/Mental-Health- Conditions http_s://psychPro.comr Sencha.com/depression/t pj-bukoxkxsm-zozhjh gd-jx-tsizjysvtt#tr eatments http__s://www.nimh. nih.gov/health/topi cs/wshhbs-ieistp-ga dications http__s://www.maribel. org/Oboja-Wlgiho-Ur lness/Treatments/Me jbxc-Tnkjub-Qarxaqk ions educated on all medications, benefits, side [...] Monitor medication response. C. Encourage suicide hotline (490) use if needed. D. advised when to [...] 150mg BID - educated on labs for Ithaca and Depakote level. b. Follow up [facility] and therapy scheduled- will make list of concerns for therapy and work on situational stressors, fears, and emotions in therapy C. Abilify 30 mg at bedtime- prescribed 05/05/24 from [facility] walk in clinic labs completed 05/28/24 Valporic acid 36, Ithaca 0.4, WBC, CMP, CARDIAC enzymes scanned into [...] Denies plan/intent. a. Close monitoring. b. Encourage 108/911 hotline use if needed. c. Follow up [...] HTN- new patient appt schedules and seen convention planner with HTN and adjusting rx a. Monitor [...] psychosis. Cannabis/marijuana information: http_s://shaheed.nih.g ov/publications/janice gfacts/cannabis-mar ijuana http_s://www.FamilyLeaf.Pinkdingo/cannabis- zbp-aywmihsu-twaxba avinash-adhd/ http_s://www.maribel.o rg/Wsdkc-Rwrpgq-Fed ness/Mental-Health- Conditions http_s://psychcentr al.com/depression/t df-ebsxdbmkj-ocdlnq km-qi-wjtivwhyxv#tr eatments http__s://www.nim. nih.gov/health/topi cs/hmznwl-hpaeni-ms dications http__s://www.maribel. org/Oawun-Ypmeec-Dp lness/Treatments/Me saws-Gsnpvh-Djmxsvz ions educated on all medications, benefits, side [...] obsessional thoughts and acts (ICD-10 - F42.2) Obsessive-Compuls leandra Disorder: Care Instructions material was published Obsessive-Compuls leandra Disorder: Care Instructions material was published 1. [...] Monitor medication response. C. Encourage suicide hotline (488) use if needed. D. advised when to seek emergency services. 2. Bipolar Disorder educated on therapy and CBT/DBT. [facility]- will work on situational stressors [...] 150mg BID - educated on labs for [place]thaca and Depakote level. b. Follow up [facility]RE[facility] and therapy scheduled- will make list of concerns for therapy and work on situational stressors, fears, and emotions in therapy C. Abilify 30 mg at bedtime- prescribed 05/05/24 from [facility] walk in clinic labs completed 05/28/24 Valporic acid 36, Ithaca 0.4, WBC, CMP, CARDIAC enzymes scanned into [...] HTN- new patient appt schedules and seen convention planner with HTN and adjusting rx a. Monitor [...] psychosis. Cannabis/marijuana information: http_s://shaheed.nih.g ov/publications/janice gfacts/cannabis-mar ijuana http_s://www.Neovasc/cannabis- hzk-xkcxujom-dkwxhr avinash-adhd/ http_s://www.maribel.o rg/Wlcsy-Gjavoa-Lqq ness/Mental-Health- Conditions http_s://psychLogicMonitor/depression/t ul-mdghmhpev-jwbmjc aa-lv-drfhldhxlt#tr eatments http__s://www.nimh. nih.gov/health/topi cs/kyfbgc-nqwwie-dg dications http__s://www.maribel. org/Monhy-Jnanxq-Et lness/Treatments/Me tpzx-Uysqtc-Jnratgx ions educated on all medications, benefits, side [...] obsessional thoughts and acts (ICD-10 - F42.2) Obsessive-Compuls leandra Disorder: Care Instructions material was published Obsessive-Compuls leandra Disorder: Care Instructions material was published 1. [...] Monitor medication response. C. Encourage suicide hotline (753) use if needed. D. advised when to [...] in hands - plan to taper off Ithaca - educated on labs for [place] and Depakote level. . Follow up [facility]RE[facility] and therapy scheduled- will make list of concerns for therapy and work on situational stressors, fears, and emotions in therapy Abilify 30 mg at bedtime- prescribed 05/05/24 from [facility] walk in clinic- discuss may plan to decrease dose in furture - patient has had recent eduardo/hypomania and depression recently labs completed 05/28/24 Valporic acid 36, [place]th[place] 0.4, WBC, CMP, CARDIAC enzymes scanned into [...] Denies plan/intent. a. Close monitoring. b. Encourage 264/571 hotline use if needed. c. Follow up [...] HTN- new patient appt schedules and seen convention planner with HTN and adjusting rx a. Monitor [...] psychosis. Cannabis/marijuana information: http_s://shaheed.nih.g ov/publications/janice gfacts/cannabis-mar ijuana http_s://www.additu demag.com/cannabis- qlf-bugymcpy-tyumvj avinash-adhd/ http_s://www.maribel.o /Ihucm-Udqzsb-Imx ness/Mental-Health- Conditions http_s://psychcentr Sencha.com/depression/t tg-oremttjty-qmseuw sc-he-obpmttntkn#tr eatments http__s://www.nimh. nih.gov/health/topi cs/xouwqy-cnakxs-jf dications http__s://www.maribel. org/Onicx-Xlziib-Tv lness/Treatments/Me xrkq-Ijknxo-Xzojtje ions educated on all medications, benefits, side [...] 150mg BID - educated on labs for [place] and Depakote level. b. Follow up [facility] and therapy scheduled- will make list of concerns for therapy and work on situational stressors, fears, and emotions in therapy C. Abilify 30 mg at bedtime- prescribed 05/05/24 from [facility] walk in clinic labs completed 05/28/24 Valporic acid 36, [place] 0.4, WBC, CMP, CARDIAC enzymes scanned into [...] HTN- new patient appt schedules and seen convention planner with HTN and adjusting rx a. Monitor [...] psychosis. Cannabis/marijuana information: http_s://shaheed.nih.g ov/publications/janice gfacts/cannabis-mar ijuana http_s://www.Neovasc/cannabis- spf-lygkcgmm-icyvha avinash-adhd/ http_s://www.maribel.o /Zbxlj-Zagsox-Kyr ness/Mental-Health- Conditions http_s://psychPro.comr Sencha.com/depression/t mu-onfsgsddt-fufbdb fy-mt-bxkcuzjvwa#tr eatments http__s://www.nimh. nih.gov/health/topi cs/suvsxk-dgrbpo-if dications http__s://www.maribel. org/Dkibv-Yzvohs-Yn lness/Treatments/Me qwyl-Tqdtrr-Cytidpd ions educated on all medications, benefits, side [...] obsessional thoughts and acts (ICD-10 - F42.2) Obsessive-Compuls leandra Disorder: Care Instructions material was published Obsessive-Compuls leandra Disorder: Care Instructions material was published, Obsessive-Compuls leandra Disorder: Care Instructions material was published 1. [...] Monitor medication response. C. Encourage suicide hotline (958) use if needed. D. advised when to [...] for near future plan to taper off [place] r/t tremors - educated on labs for [place] and Depakote level. . Follow up [facility]RELA and therapy scheduled- will make list of concerns for therapy and work on situational stressors, fears, and emotions in therapy labs completed 05/28/24 Valporic acid 36, [place] 0.4, WBC, CMP, CARDIAC enzymes scanned into chart LABS SCHEDULED today PCP will add [place] and Depakote Gene sight reviewed and Abilify [...] Denies plan/intent. a. Close monitoring. b. Encourage 285/1 hotline use if needed. c. Follow up [...] abuse, and addiction before prescribing stimulant medicines. 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 Random UDS [place] prescription reviewed local pharmacy in [place], no [...] psychosis. Cannabis/marijuana information: http_s://shaheed.nih.g ov/publications/janice gfacts/cannabis-mar ijuana http_s://www.Neovasc/cannabis- vxr-xsyjcvqo-fssvxk avinash-adhd/ http_s://www.maribel.o rg/Ltkck-Fyeumn-Iap ness/Mental-Health- Conditions http_s://psychcentr Sencha.com/depression/t ij-dbodmytqx-jwqffo ii-qk-gswblrkwen#tr eatments http__s://www.nimh. nih.gov/health/topi cs/ebkzby-lzgukd-ic dications http__s://www.maribel. org/Mrrgj-Gwzdsn-Pz lness/Treatments/Me uxih-Wichph-Wjskuua ions educated on all medications, benefits, side [...] obsessional thoughts and acts (ICD-10 - F42.2) Obsessive-Compuls leandra Disorder: Care Instructions material was published Obsessive-Compuls leandra Disorder: Care Instructions material was published, Obsessive-Compuls leandra Disorder: Care Instructions material was published 1. [...] Monitor medication response. C. Encourage suicide hotline (042) use if needed. D. advised when to [...] future- pateint agreed plan to taper off [place] r/t tremors - educated on labs for [place] and Depakote level.- patient reported will have done Sunday . Follow up MIRELA and therapy scheduled- will make list of concerns for therapy and work on situational stressors, fears, and emotions in therapy labs completed 05/28/24 Valporic acid 36, [place] 0.4, WBC, CMP, CARDIAC enzymes scanned into [...] Denies plan/intent. a. Close monitoring. b. Encourage 902/263 hotline use if needed. c. Follow up [...] abuse, and addiction before prescribing stimulant medicines. 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 Random S [place] prescription reviewed local pharmacy in [facility], no early refills on control substance educated on non-stimulate and stimulates - Plan: Send refill to [facility] need 30 days at a time r/t insurance Gene Sight discuss Follow up [facility] and therapy scheduled- will make list of concerns for therapy and work on situational stressors, fears, and emotions in therapy educated on cannabis use as it can negatively impact mood, motivation, anxiety, sleep, focus/concentration /memory (vigilance, elasticity, processing and attention); can also contribute to development of psychosis. Cannabis/marijuana information: http_s://shaheed.nih.g ov/publications/janice gfacts/cannabis-mar ijuana http_s://www.Neovasc/cannabis- qme-rrzceizv-gfacxh avinash-adhd/ http_s://www.maribel.o rg/Njwyk-Yfruna-Ajh ness/Mental-Health- Conditions http_s://psychcentr Sencha.com/depression/t mz-sfsabkrlo-ogltna rq-gk-insgczmxtj#tr eatments http__s://www.nimh. nih.gov/health/topi cs/wzlxys-ccihmx-oq dications http__s://www.maribel. org/Fiwwf-Lifptr-Zp lness/Treatments/Me ftzp-Yavgbj-Ckrtkri ions educated on all medications, benefits, side [...] monitor tremors in hands - labs 09/30 [place] 0.3 Depakote 33.6 Discuss Gene sight and Invega for Bipolar to control symptoms - Invega 3 mg daily continue discuss and educated on Invega injections for near future- pateint agreed plan to taper off [place] r/t tremors - educated on labs for [place] and Depakote level.- [facility] . Follow up [...] abuse, and addiction before prescribing stimulant medicines. 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 Random UDS [place] prescription reviewed local pharmacy in [place], no [...] psychosis. Cannabis/marijuana information: http_s://shaheed.nih.g ov/publications/janice gfacts/cannabis-mar ijuana http_s://www.FamilyLeaf.Pinkdingo/cannabis- ivr-rywigsdf-qljkfw avinash-adhd/ http_s://www.maribel.o rg/Qjroq-Fgunkh-Xwg ness/Mental-Health- Conditions http_s://psychcentr al.com/depression/t cx-flpahxgzh-euquom ud-uv-lrnauhfueg#tr eatments http__s://www.nimh. nih.gov/health/topi cs/eudgsn-brxoks-jv dications http__s://www.maribel. org/Ktpse-Fsvvau-Bw lness/Treatments/Me vjde-Jnnfwl-Rjxubdt ions educated on all medications, benefits, side [...] Learning About Sleeping Well material was published 11/13/2024 Primary insomnia (ICD-10 - F51.01) Insomnia: [...] B. Monitor medication response. Encourage suicide hotline (937) use if needed.. advised when to seek [...] monitor tremors in hands - labs 09/30 [place] 0.3 Depakote 33.6 Discuss Gene sight and [...] contraception during tx plan to taper off [place] r/t tremors - educated on labs for [place] and Depakote level.- [facility] . Follow up [...] Denies plan/intent. a. Close monitoring. b. Encourage 338/501 hotline use if needed. c. Follow up [...] abuse, and addiction before prescribing stimulant medicines. 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 Random [place] prescription reviewed local pharmacy [place], no [...] psychosis. Cannabis/marijuana information: http_s://shaheed.nih.g ov/publications/janice gfacts/cannabis-mar ijuana http_s://www.Neovasc/cannabis- ysi-cxoforlp-nvcxlr avinash-adhd/ http_s://www.maribel.o rg/Mvuaj-Ezdzzf-Zfx ness/Mental-Health- Conditions http_s://psychPro.comr Sencha.Pinkdingo/depression/t xa-yvapnnqrn-ibzqkg ry-ai-pdzbisiqwi#tr eatments http__s://www.nimh. nih.gov/health/topi cs/jtnbsp-jpwpdt-vx dications http__s://www.maribel. org/Sfnyk-Uemroi-Nw lness/Treatments/Me bhxf-Qfeeyh-Swmjfpt ions educated on all medications, benefits, side [...] obsessional thoughts and acts (ICD-10 - F42.2) Obsessive-Compuls leandra Disorder: Care Instructions material was published Obsessive-Compuls leandra Disorder: Care Instructions material was published, Obsessive-Compuls leandra Disorder: Care Instructions material was published Obsessive-Compuls leandra Disorder: Care Instructions material was published Obsessive-Compuls leandra Disorder: Care Instructions material was published, Obsessive-Compuls leandra Disorder: Care Instructions material was published 1. [...] B. Monitor medication response. Encourage suicide hotline (747) use if needed.. advised when to seek [...] monitor tremors in hands - labs 10/28 [place] 0.3 Depakote 33.6 Discuss Gene sight and [...] contraception during tx plan to taper off [place] r/t tremors - educated on labs for [place] and Depakote level.- [facility] . Follow up [...] Denies plan/intent. a. Close monitoring. b. Encourage 835/761 hotline use if needed. c. Follow up [...] abuse, and addiction before prescribing stimulant medicines. 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 Random UDS [place] prescription reviewed local pharmacy in [facility], no early refills on control substance [...] psychosis. Cannabis/marijuana information: http_s://shaheed.nih.g ov/publications/janice gfacts/cannabis-mar ijuana http_s://www.FamilyLeaf.Pinkdingo/cannabis- tav-anbyilyx-mclrzk avinash-adhd/ http_s://www.maribel.o rg/Bnktz-Mnfrwa-Ros ness/Mental-Health- Conditions http_s://psychcentr al.com/depression/t ub-kendqwzhn-ljatij jz-ms-oeycochkar#tr eatments http__s://www.nimh. nih.gov/health/topi cs/dtagkq-innzib-qx dications http__s://www.maribel. org/Mygsj-Yoeaxx-Jq lness/Treatments/Me lwux-Umfaks-Bmuwsmb ions educated on all medications, benefits, side [...] common with first generation antipsychotics) and more. 05/26/2025 Mixed obsessional thoughts and acts (ICD-10 - F42.2) Obsessive-Compuls leandra Disorder: Care Instructions material was published Obsessive-Compuls leandra Disorder: Care Instructions material was published, Obsessive-Compuls leandra Disorder: Care Instructions material was published Obsessive-Compuls leandra Disorder: Care Instructions material was published Obsessive-Compuls leandra Disorder: Care Instructions material was published, Obsessive-Compuls leandra Disorder: Care Instructions material was published 1. Anxiety hx Patient reports anxiety level with intrusive thoughts and fear of night and sleep, and being alone discuss making list of thoughts, goals, plans and place in action discuss activity for day sleep hygiene education continue therapy discuss and educated on all rx Vistaril 10 mg three time a day for anxiety- PRN HX Vistaril reported 25 mg dose more on edge - therapy continue- discuss DBT/CBT therapy discuss IOP program discuss journaling, coping skills, and identify triggers insurance requires 30 days at a time with refills 2. OCD A. fluvoxamine to 100mg. - anxiety and OCD- helping B. Monitor medication response. Encourage suicide hotline (704) use if needed.. 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 Follow up [...] Denies plan/intent. a. Close monitoring. b. Encourage 238/841 hotline use if needed. c. Follow up [...] in moderate reduce efficacy discuss and educated patient stopped Guanfacine 1 mg daily - caused dry mouth- Qelbree- Moderate gene interaction- [...] abuse, and addiction before prescribing stimulant medicines. 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 Random UDS [place] prescription reviewed local pharmacy [place], no [...] psychosis. Cannabis/marijuana information: http_s://shaheed.nih.g ov/publications/janice gfacts/cannabis-mar lopezuana http_s://www.Neovasc/cannabis- kxk-mlrnsbfz-wcgoyx avinash-adhd/ http_s://www.maribel.o rg/Brmgw-Mjnobh-Ajy ness/Mental-Health- Conditions http_s://psychPro.comr Sencha.com/depression/t xk-oxwthxfwu-duyfey lc-mp-srjrayucuv#tr eatments http__s://www.nimh. nih.gov/health/topi cs/goeyrm-icvocc-os dications http__s://www.maribel. org/Omeei-Jvmgza-Kb lness/Treatments/Me unoh-Uyxadw-Ctdtzpk ions educated on all medications, benefits, side [...] common with first generation antipsychotics) and more. 05/26/2025 ADHD (attention deficit hyperactivity disorder), combined type [...] mg three time a day for anxiety- PRN HX Vistaril reported 25 mg dose more on edge - therapy continue- discuss DBT/CBT therapy discuss IOP program discuss journaling, coping skills, and identify triggers insurance requires 30 days at a time with refills 2. OCD A. fluvoxamine to 100mg. - anxiety and OCD- helping B. Monitor medication response. Encourage suicide hotline (547) use if needed.. advised when to seek emergency services. 3. Bipolar Disorder educated on therapy and CBT/DBT. [facility]- will work on situational stressors [...] improved and monitor tremors in hands - NONE NOTED hx [place] toxicity at higher doses labs 10/28 [place] 0.3 Depakote 33.6 Discuss Gene sight and Invega for Bipolar to control symptoms - Increase Invega 6 mg daily for depression and prevent eduardo discuss and educated on Invega injections for [...] contraception during tx plan to taper off [place] r/t tremors - educated on labs for [place] and Depakote level.- [facility] . Follow up [...] Denies plan/intent. a. Close monitoring. b. Encourage 659/565 hotline use if needed. c. Follow up [...] in moderate reduce efficacy discuss and educated patient stopped Guanfacine 1 mg daily - caused dry mouth- Qelbree- Moderate gene interaction- [...] abuse, and addiction before prescribing stimulant medicines. 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 Random UDS [place] prescription reviewed local pharmacy in [facility], no early refills on control substance [...] psychosis. Cannabis/marijuana information: http_s://shaheed.nih.g ov/publications/janice gfacts/cannabis-mar ijuana http_s://www.FamilyLeaf.Pinkdingo/cannabis- yku-ipcqncwg-kmlotp avinash-adhd/ http_s://www.maribel.o rg/Nlqrk-Qsssmp-Yar ness/Mental-Health- Conditions http_s://psychcentr Sencha.com/depression/t us-qprqoibqc-jhjrid fk-uv-yrfoulqsqw#tr eatments http__s://www.nimh. nih.gov/health/topi cs/ywlxhw-stxgdq-yh dications http__s://www.maribel. org/Uyabh-Virndh-Oq lness/Treatments/Me cife-Mogtpb-Mtgyssw ions educated on all medications, benefits, side [...] monitor tremors in hands - labs 10/28 [place] 0.3 Depakote 33.6 Discuss Gene sight and [...] contraception during tx plan to taper off [place] r/t tremors - educated on labs for [place] and Depakote level.- [facility] . Follow up [...] abuse, and addiction before prescribing stimulant medicines. 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 Random [facility] prescription reviewed local pharmacy in [facility], no early refills on control substance educated on non-stimulate and stimulates - Plan: Send refill to [facility] need 30 days at a time r/t [...] psychosis. Cannabis/marijuana information: http_s://shaheed.nih.g ov/publications/janice gfacts/cannabis-mar ijuana http_s://www.additu demag.com/cannabis- ijq-tabijgbm-algecg avinash-adhd/ http_s://www.maribel.o /Wzdju-Ljxelf-Kus ness/Mental-Health- Conditions http_s://psychcentr Sencha.com/depression/t ub-xvsttlwql-kfrynl vk-yi-rtvwatvbhd#tr eatments http__s://www.nimh. nih.gov/health/topi cs/trzdxd-crgext-hv dications http__s://www.maribel. org/Tfjxf-Xbcsjk-Qi lness/Treatments/Me mrox-Pgqthv-Cbigoia ions educated on all medications, benefits, side [...] obsessional thoughts and acts (ICD-10 - F42.2) Obsessive-Compuls leandra Disorder: Care Instructions material was published Obsessive-Compuls leandra Disorder: Care Instructions material was published, Obsessive-Compuls leandra Disorder: Care Instructions material was published Obsessive-Compuls leandra Disorder: Care Instructions material was published Obsessive-Compuls leandra Disorder: Care Instructions material was published, Obsessive-Compuls leandra Disorder: Care Instructions material was published 1. [...] B. Monitor medication response. Encourage suicide hotline (369) use if needed.. advised when to seek emergency services. 3. Bipolar Disorder educated on therapy and CBT/DBT. [facility]- will work on situational stressors [...] monitor tremors in hands - labs 09/30 [place] 0.3 Depakote 33.6 Discuss Gene sight and [...] contraception during tx plan to taper off [place] r/t tremors - educated on labs for [place] and Depakote level.- [facility] . Follow up [...] Denies plan/intent. a. Close monitoring. b. Encourage 082/751 hotline use if needed. c. Follow up [...] abuse, and addiction before prescribing stimulant medicines. 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 Random [place]DS [place] prescription reviewed local pharmacy [place], no [...] psychosis. Cannabis/marijuana information: http_s://shaheed.nih.g ov/publications/janice gfacts/cannabis-mar ijuana http_s://www.Neovasc/cannabis- wxz-jebjuqst-zgpwle avinash-adhd/ http_s://www.maribel.o /Nnfpo-Mviupa-Lnf ness/Mental-Health- Conditions http_s://psychPro.comr Sencha.Pinkdingo/depression/t ua-omdcxbqmi-rbozxm ke-iz-sdhyazquzu#tr eatments http__s://www.nimh. nih.gov/health/topi cs/sqzymi-dddujq-gm dications http__s://www.maribel. org/Vqtha-Vgcnjn-Wl lness/Treatments/Me zeds-Ssnims-Gaqrtcq ions educated on all medications, benefits, side [...] with first generation antipsychotics) and more. 09/17/2024 Mixed obsessional thoughts and acts (ICD-10 - F42.2) Obsessive-Compuls leandra Disorder: Care Instructions material was published Obsessive-Compuls leandra Disorder: Care Instructions material was published, Obsessive-Compuls leandra Disorder: Care Instructions material was published 08/25/2024 [...] Monitor medication response. C. Encourage suicide hotline (703) use if needed. D. advised when to [...] for near future plan to taper off [place] r/t tremors - educated on labs for [place] and Depakote level. . Follow up [facility] and therapy scheduled- will make list of concerns for therapy and work on situational stressors, fears, and emotions in therapy labs completed 05/28/24 Valporic acid 36, [place] 0.4, WBC, CMP, CARDIAC enzymes scanned into chart LABS SCHEDULED today PCP will add [place] and Depakote Gene sight reviewed and Abilify [...] Denies plan/intent. a. Close monitoring. b. Encourage 058/031 hotline use if needed. c. Follow up [...] abuse, and addiction before prescribing stimulant medicines. 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 Random [facility] prescription reviewed local pharmacy in [facility], no early refills on control substance [...] psychosis. Cannabis/marijuana information: http_s://shaheed.nih.g ov/publications/janice gfacts/cannabis-mar ijuana http_s://www.FamilyLeaf.Pinkdingo/cannabis- led-gfvaddyl-yljffb avinash-adhd/ http_s://www.maribel.o rg/Irjct-Rxebkg-Nlc ness/Mental-Health- Conditions http_s://psychcentr Sencha.com/depression/t dv-ufjvbgnmz-npcmjd wm-ve-coopszzisf#tr eatments http__s://www.nimh. nih.gov/health/topi cs/vnvpyh-crtgtu-ip dications http__s://www.maribel. org/Olkhw-Tfgcwp-Bh lness/Treatments/Me gphg-Tchuuy-Ynjpgpz ions educated on all medications, benefits, side [...] future- pateint agreed plan to taper off [place] r/t tremors - educated on labs for [place] and Depakote level.- patient reported will have done Sunday . Follow up [facility] and therapy scheduled- will make list of concerns for therapy and work on situational stressors, fears, and emotions in therapy labs completed 05/28/24 Valporic acid 36, [place] 0.4, WBC, CMP, CARDIAC enzymes scanned into [...] Denies plan/intent. a. Close monitoring. b. Encourage 988/701 hotline use if needed. c. Follow up [...] abuse, and addiction before prescribing stimulant medicines. 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 Random UDS [place] prescription reviewed local pharmacy in [facility], no early refills on control substance [...] psychosis. Cannabis/marijuana information: http_s://shaheed.nih.g ov/publications/janice gfacts/cannabis-mar ijuana http_s://www.FamilyLeaf.Pinkdingo/cannabis- tax-jimjdyme-racjgd avinash-adhd/ http_s://www.maribel.o rg/Asjgx-Ozuhbz-Nmv ness/Mental-Health- Conditions http_s://psychcentr al.com/depression/t ph-gkppnwble-rdzkog ua-jg-qwmngkdhwq#tr eatments http__s://www.nimh. nih.gov/health/topi cs/pkamuy-vzpgno-xw dications http__s://www.maribel. org/Iwjfe-Vzfftf-Zx lness/Treatments/Me nwmp-Ezecpz-Zqqyqxy ions educated on all medications, benefits, side [...] obsessional thoughts and acts (ICD-10 - F42.2) Obsessive-Compuls leandra Disorder: Care Instructions material was published Obsessive-Compuls leandra Disorder: Care Instructions material was published, Obsessive-Compuls leandra Disorder: Care Instructions material was published Obsessive-Compuls leandra Disorder: Care Instructions material was published Obsessive-Compuls leandra Disorder: Care Instructions material was published, Obsessive-Compuls leandra Disorder: Care Instructions material was published 1. [...] monitor tremors in hands - labs 09/30 [place] 0.3 Depakote 33.6 Discuss Gene sight and Invega for Bipolar to control symptoms - Invega 3 mg daily continue discuss and educated on Invega injections for near future- pateint agreed plan to taper off [place] r/t tremors - educated on labs for [place] and Depakote level.- [facility] . Follow up [...] abuse, and addiction before prescribing stimulant medicines. 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 Random [facility] prescription reviewed local pharmacy in [facility], no early refills on control substance [...] psychosis. Cannabis/marijuana information: http_s://shaheed.nih.g ov/publications/janice gfacts/cannabis-mar ijuana http_s://www.FamilyLeaf.Pinkdingo/cannabis- sgk-nhkvsrlr-heoskp avinash-adhd/ http_s://www.maribel.o rg/Jkmst-Fqqigb-Dcb ness/Mental-Health- Conditions http_s://psychcentr Sencha.com/depression/t xl-ikfybazhn-piwisf gd-bi-hwhyxpelsn#tr eatments http__s://www.nimh. nih.gov/health/topi cs/hqqqdh-fgnjuo-dc dications http__s://www.maribel. org/Zokjq-Jyxvzc-Gf lness/Treatments/Me mrbg-Wnjefn-Iwgsxaa ions educated on all medications, benefits, side [...] Monitor medication response. C. Encourage suicide hotline (723) use if needed. D. advised when to [...] in hands - plan to taper off [place]thaca - educated on labs for [place] and Depakote level. . Follow up [facility] and therapy scheduled- will make list of concerns for therapy and work on situational stressors, fears, and emotions in therapy Abilify 30 mg at bedtime- prescribed 05/05/24 from [facility] walk in clinic- discuss may plan to decrease dose in furture - patient has had recent eduardo/hypomania and depression recently labs completed 05/28/24 Valporic acid 36, [place] 0.4, WBC, CMP, CARDIAC enzymes scanned into [...] HTN- new patient appt schedules and seen convention planner with HTN and adjusting rx a. Monitor [...] psychosis. Cannabis/marijuana information: http_s://shaheed.nih.g ov/publications/janice gfacts/cannabis-mar ijuana http_s://www.Neovasc/cannabis- qfz-jjlsxfxd-zujwpq avinash-adhd/ http_s://www.maribel.o /Ydsav-Rzhhyw-Kqh ness/Mental-Health- Conditions http_s://psychLogicMonitor/depression/t py-cfokidoge-fsdiyz wy-uw-ahlihjupfz#tr eatments http__s://www.nimh. nih.gov/health/topi cs/ueeuyg-bsmgex-qr dications http__s://www.maribel. org/Bpvkj-Hqfrne-Yo lness/Treatments/Me gzwi-Oefeoz-Ncrzppi ions educated on all medications, benefits, side [...] Monitor medication response. C. Encourage suicide hotline (893) use if needed. D. advised when to [...] in hands - plan to taper off [place] - educated on labs for [place] and Depakote level. . Follow up [facility] and therapy scheduled- will make list of concerns for therapy and work on situational stressors, fears, and emotions in therapy Abilify 30 mg at bedtime- prescribed 05/05/24 from [facility] walk in clinic- discuss may plan to decrease dose in furture - patient has had recent eduardo/hypomania and depression recently labs completed 05/28/24 Valporic acid 36, [place] 0.4, WBC, CMP, CARDIAC enzymes scanned into [...] Denies plan/intent. a. Close monitoring. b. Encourage 8/911 hotline use if needed. c. Follow up [...] HTN- new patient appt schedules and seen convention planner with HTN and adjusting rx a. Monitor [...] psychosis. Cannabis/marijuana information: http_s://shaheed.nih.g ov/publications/janice gfacts/cannabis-mar ijuana http_s://www.FamilyLeaf.Pinkdingo/cannabis- lly-mycflxtm-amuxib avinash-adhd/ http_s://www.maribel.o /Errra-Mkqjie-Dqe ness/Mental-Health- Conditions http_s://psychcentr Sencha.com/depression/t fc-dzmjmzfil-pmnjgs dz-jh-ptolrlmgfo#tr eatments http__s://www.nimh. nih.gov/health/topi cs/joeirv-tptgba-za dications http__s://www.maribel. org/Rcslz-Vpbkxa-Qr lness/Treatments/Me vkbd-Zvuuyj-Gaitjmt ions educated on all medications, benefits, side [...] Monitor medication response. C. Encourage suicide hotline (076) use if needed. D. advised when to [...] future- pateint agreed plan to taper off [place] r/t tremors - educated on labs for [place] and Depakote level.- patient reported will have done Sunday . Follow up [facility] and therapy scheduled- will make list of concerns for therapy and work on situational stressors, fears, and emotions in therapy labs completed 05/28/24 Valporic acid 36, [place] 0.4, WBC, CMP, CARDIAC enzymes scanned into [...] abuse, and addiction before prescribing stimulant medicines. 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 Random [place]DS [place] prescription reviewed local pharmacy in [place], no early refills on control substance educated on non-stimulate and stimulates - Plan: Send refill to [facility] need 30 days at a time r/t insurance Gene Sight discuss Follow up [facility]REAL and therapy scheduled- will make list of concerns for therapy and work on situational stressors, fears, and emotions in therapy educated on cannabis use as it can negatively impact mood, motivation, anxiety, sleep, focus/concentration /memory (vigilance, elasticity, processing and attention); can also contribute to development of psychosis. Cannabis/marijuana information: http_s://shaheed.nih.g ov/publications/janice gfacts/cannabis-mar lopezuana http_s://www.Neovasc/cannabis- ken-ddxriate-czhvof avinash-adhd/ http_s://www.maribel.o rg/Lqxin-Gorgax-Kiq ness/Mental-Health- Conditions http_s://psychcentr Sencha.com/depression/t bn-uimdtznxj-xhlvkz po-xp-jowwvpiydg#tr eatments http__s://www.nimh. nih.gov/health/topi cs/hupvmg-uwmqpv-ea dications http__s://www.maribel. org/Nvbmi-Kmhtcq-Vv lness/Treatments/Me ivct-Sgcybz-Nokigod ions educated on all medications, benefits, side [...] Monitor medication response. C. Encourage suicide hotline (840) use if needed. D. advised when to [...] for near future plan to taper off [place] r/t tremors - educated on labs for [place] and Depakote level. . Follow up [facility] and therapy scheduled- will make list of concerns for therapy and work on situational stressors, fears, and emotions in therapy labs completed 05/28/24 Valporic acid 36, [place] 0.4, WBC, CMP, CARDIAC enzymes scanned into chart LABS SCHEDULED today PCP will add [place] and Depakote Gene sight reviewed and Abilify [...] Denies plan/intent. a. Close monitoring. b. Encourage 331/743 hotline use if needed. c. Follow up [...] abuse, and addiction before prescribing stimulant medicines. 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 Random [facility] [place] prescription reviewed local pharmacy in [place], no [...] psychosis. Cannabis/marijuana information: http_s://shaheed.nih.g ov/publications/janice gfacts/cannabis-mar ijuana http_s://www.Neovasc/cannabis- afy-vkcuqmpe-rywopg avinash-adhd/ http_s://www.maribel.o rg/Jdyit-Vhahti-Llv ness/Mental-Health- Conditions http_s://psychcentr Sencha.com/depression/t dd-efmkzpnsa-zgacxu ho-jv-swvmhemjkt#tr eatments http__s://www.nimh. nih.gov/health/topi cs/vdvnff-qbnsls-tu dications http__s://www.maribel. org/Flypb-Oihkaa-Gw lness/Treatments/Me axou-Nvxvtd-Lmojkcw ions educated on all medications, benefits, side [...] Deficit Hyperactivity Disorder (ADHD) material was published 11/13/2024 ADHD (attention deficit hyperactivity disorder), combined [...] B. Monitor medication response. Encourage suicide hotline (757) use if needed.. advised when to seek emergency services. 3. Bipolar Disorder educated on therapy and CBT/DBT. [facility]- will work on situational stressors [...] monitor tremors in hands - labs 09/30 [place] 0.3 Depakote 33.6 Discuss Gene sight and [...] contraception during tx plan to taper off [place] r/t tremors - educated on labs for [place] and Depakote level.- [facility] . Follow up [...] Denies plan/intent. a. Close monitoring. b. Encourage 528/911 hotline use if needed. c. Follow up [...] abuse, and addiction before prescribing stimulant medicines. 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 Random [facility] prescription reviewed local pharmacy in [facility], no early refills on control substance [...] psychosis. Cannabis/marijuana information: http_s://shaheed.nih.g ov/publications/janice gfacts/cannabis-mar ijuana http_s://www.FamilyLeaf.Pinkdingo/cannabis- qbj-clbbjxyh-znddxp avinash-adhd/ http_s://www.maribel.o rg/Mvwme-Xfgarr-Czn ness/Mental-Health- Conditions http_s://psychcentr Sencha.com/depression/t si-ycecytger-iqdaoo mx-ns-rqfhrbkoyv#tr eatments http__s://www.nimh. nih.gov/health/topi cs/wiewzl-ucbnou-lp dications http__s://www.maribel. org/Mgarv-Hdcckl-Mo lness/Treatments/Me jatc-Awqkfm-Pswiwsc ions educated on all medications, benefits, side [...] with first generation antipsychotics) and more. 10/06/2024 ADHD (attention deficit hyperactivity disorder), combined [...] Monitor medication response. C. Encourage suicide hotline (888) use if needed. D. advised when to [...] monitor tremors in hands - labs 09/30 Ithaca 0.3 Depakote 33.6 Discuss Gene sight and Invega for Bipolar to control symptoms - Invega 3 mg daily continue discuss and educated on Invega injections for near future- pateint agreed plan to taper off Ithaca r/t tremors - educated on labs for Ithaca and Depakote level.- [facility] . Follow up [...] abuse, and addiction before prescribing stimulant medicines. 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 Random [place] prescription reviewed local pharmacy in [facility], no early refills on control substance [...] psychosis. Cannabis/marijuana information: http_s://shaheed.nih.g ov/publications/janice gfacts/cannabis-mar ijuana http_s://www.FamilyLeaf.com/cannabis- qaa-fmlwpoic-pljcpf avinash-adhd/ http_s://www.maribel.o rg/Xndnj-Yaxsnq-Yji ness/Mental-Health- Conditions http_s://psychcentr Sencha.com/depression/t hs-rnbkyvyuy-ieqzqd wv-jw-sflvhnqfby#tr eatcarissa http__s://www.nimh. nih.gov/health/topi cs/bthoks-dfmghn-mo dications http__s://www.maribel. org/Cnlrm-Wfsuls-Cv lness/Treatments/Me pbhu-Fvdsco-Uwpdwvd ions educated on all medications, benefits, side [...] B. Monitor medication response. Encourage suicide hotline (180) use if needed.. advised when to seek [...] monitor tremors in hands - labs 10/28 Ithaca 0.3 Depakote 33.6 Discuss Gene sight and [...] contraception during tx plan to taper off Ithaca r/t tremors - educated on labs for Ithaca and Depakote level.- [facility] . Follow up [...] Denies plan/intent. a. Close monitoring. b. Encourage 638/001 hotline use if needed. c. Follow up [...] abuse, and addiction before prescribing stimulant medicines. 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 Random [place] local pharmacy in [place], no [...] psychosis. Cannabis/marijuana information: http_s://shaheed.nih.g ov/publications/janice gfacts/cannabis-mar ijuana http_s://www.Neovasc/cannabis- kjf-ugfmzqjt-cxaxdj avinash-adhd/ http_s://www.maribel.o rg/Ierpy-Cevasu-Jzs ness/Mental-Health- Conditions http_s://psychcentr Sencha.com/depression/t gj-qbxpluhdr-ycyuol ge-ly-fsfduvryrd#tr eatments http__s://www.nimh. nih.gov/health/topi cs/rhyxzk-tecoow-pt dications http__s://www.maribel. org/Vszfl-Ywovjm-Fx lness/Treatments/Me dnrv-Nfgnez-Rsoiysb ions educated on all medications, benefits, side [...] common with first generation antipsychotics) and more. 05/26/2025 Encounter for screening for depression (ICD-10 - Z13.31) 1. Anxiety hx Patient reports anxiety level with intrusive thoughts and fear of night and sleep, and being alone discuss making list of thoughts, goals, plans and place in action discuss activity for day sleep hygiene education continue therapy discuss and educated on all rx Vistaril 10 mg three time a day for anxiety- PRN HX Vistaril reported 25 mg dose more on edge - therapy continue- discuss DBT/CBT therapy discuss IOP program discuss journaling, coping skills, and identify triggers insurance requires 30 days at a time with refills 2. OCD A. fluvoxamine to 100mg. - anxiety and OCD- helping B. Monitor medication response. Encourage suicide hotline (936) use if needed.. 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 Follow up [...] Denies plan/intent. a. Close monitoring. b. Encourage 699/578 hotline use if needed. c. Follow up [...] in moderate reduce efficacy discuss and educated patient stopped Guanfacine 1 mg daily - caused dry mouth- Qelbree- Moderate gene interaction- [...] abuse, and addiction before prescribing stimulant medicines. 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 Random [place] prescription reviewed local pharmacy in [place], no [...] psychosis. Cannabis/marijuana information: http_s://shaheed.nih.g ov/publications/janice gfacts/cannabis-mar ijuana http_s://www.Neovasc/cannabis- buu-fslkztuw-xhceos avinash-adhd/ http_s://www.maribel.o rg/Ojiqx-Glftcv-Ndh ness/Mental-Health- Conditions http_s://psychPro.comr Sencha.com/depression/t xm-jddtvynjj-atzjgu cj-xs-lqgvcknmrz#tr eatments http__s://www.nimh. nih.gov/health/topi cs/ipvuze-upunel-yv dications http__s://www.maribel. org/Ohrhl-Xqazgy-Qj lness/Treatments/Me pqep-Kedkxl-Wpogatp ions educated on all medications, benefits, side [...] common with first generation antipsychotics) and more. 05/26/2025 Bipolar disorder with depression (ICD-10 - F31.9) [...] mg three time a day for anxiety- PRN HX Vistaril reported 25 mg dose more on edge - therapy continue- discuss DBT/CBT therapy discuss IOP program discuss journaling, coping skills, and identify triggers insurance requires 30 days at a time with refills 2. OCD A. fluvoxamine to 100mg. - anxiety and OCD- helping B. Monitor medication response. Encourage suicide hotline (815) use if needed.. 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 Follow up [...] Denies plan/intent. a. Close monitoring. b. Encourage 668/021 hotline use if needed. c. Follow up [...] in moderate reduce efficacy discuss and educated patient stopped Guanfacine 1 mg daily - caused dry mouth- Qelbree- Moderate gene interaction- [...] abuse, and addiction before prescribing stimulant medicines. 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 Random [facility] prescription reviewed local pharmacy in [facility], no early refills on control substance [...] psychosis. Cannabis/marijuana information: http_s://shaheed.nih.g ov/publications/janice gfacts/cannabis-mar ijuana http_s://www.FamilyLeaf.Pinkdingo/cannabis- lfz-lqebwaxj-yuwlgj avinash-adhd/ http_s://www.maribel.o rg/Fjder-Bwvhex-Uqy ness/Mental-Health- Conditions http_s://psychcentr Sencha.com/depression/t he-krbqbkeda-cfoicn ho-zd-teeslyokhe#tr eatments http__s://www.nimh. nih.gov/health/topi cs/fbibyi-legoev-ub dications http__s://www.maribel. org/Tbsff-Slimru-Ds lness/Treatments/Me gzuf-Gwalik-Zjuxxxr ions educated on all medications, benefits, side [...] B. Monitor medication response. Encourage suicide hotline (377) use if needed.. advised when to seek [...] monitor tremors in hands - labs 10/28 Ithaca 0.3 Depakote 33.6 Discuss Gene sight and [...] contraception during tx plan to taper off Ith[place] r/t tremors - educated on labs for Ith[place] and Depakote level.- [facility] . Follow up [...] Denies plan/intent. a. Close monitoring. b. Encourage 278/421 hotline use if needed. c. Follow up [...] abuse, and addiction before prescribing stimulant medicines. 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 Random [place] prescription reviewed local pharmacy in [place], no [...] psychosis. Cannabis/marijuana information: http_s://shaheed.nih.g ov/publications/janice gfacts/cannabis-mar prosper http_s://www.Neovasc/cannabis- dva-ehobuptd-ymvqnk avinash-adhd/ http_s://www.maribel.o /Eidvz-Lxgdjl-Rta ness/Mental-Health- Conditions http_s://psychcentr Sencha.com/depression/t pb-ibxeajiey-vapmwk fh-nw-dpyndwqnll#tr eatments http__s://www.nimh. nih.gov/health/topi cs/xefwea-dprbaf-ze dications http__s://www.maribel. org/Wuamp-Hehzyo-Ft lness/Treatments/Me qbpf-Bsgiqg-Mygiljx ions educated on all medications, benefits, side [...] Monitor medication response. C. Encourage suicide hotline (829) use if needed. D. advised when to [...] monitor tremors in hands - labs 09/30 Ithaca 0.3 Depakote 33.6 Discuss Gene sight and Invega for Bipolar to control symptoms - Invega 3 mg daily continue discuss and educated on Invega injections for near future- pateint agreed plan to taper off Ith[place] r/t tremors - educated on labs for Ith[place] and Depakote level.- [facility] . Follow up [...] Denies plan/intent. a. Close monitoring. b. Encourage 921/461 hotline use if needed. c. Follow up [...] abuse, and addiction before prescribing stimulant medicines. 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 Random [facility] prescription reviewed local pharmacy in [place], no [...] psychosis. Cannabis/marijuana information: http_s://shaheed.nih.g ov/publications/janice gfacts/cannabis-mar lopezuana http_s://www.Neovasc/cannabis- ale-eckkzzoz-woglhw avinash-adhd/ http_s://www.maribel.o /Wxvic-Suywny-Fwu ness/Mental-Health- Conditions http_s://psychPro.comr Sencha.com/depression/t rt-aiocntgrj-pgsabj yt-tq-jghcytjghs#tr eatments http__s://www.nimh. nih.gov/health/topi cs/ftsudd-fijmww-fn dications http__s://www.maribel. org/Igufs-Vxzdbx-Gd lness/Treatments/Me shuh-Ekfctc-Aqpldty ions educated on all medications, benefits, side [...] B. Monitor medication response. Encourage suicide hotline (400) use if needed.. advised when to seek [...] monitor tremors in hands - labs 09/30 Ithaca 0.3 Depakote 33.6 Discuss Gene sight and [...] contraception during tx plan to taper off Ith[place] r/t tremors - educated on labs for Ith[place] and Depakote level.- [facility] . Follow up [...] Denies plan/intent. a. Close monitoring. b. Encourage [employer]/231 hotline use if needed. c. Follow up [...] abuse, and addiction before prescribing stimulant medicines. 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 Random [place] prescription reviewed local pharmacy in [facility], no early refills on control substance [...] psychosis. Cannabis/marijuana information: http_s://shaheed.nih.g ov/publications/janice gfacts/cannabis-mar ijuana http_s://www.Neovasc/cannabis- uuj-hiujictg-nsogxh avinash-adhd/ http_s://www.maribel.o rg/Fedpu-Tzamre-Wjt ness/Mental-Health- Conditions http_s://psychcentr Sencha.com/depression/t rm-rgtbrfunp-zwaeez zx-ex-enqkookvev#tr eatments http__s://www.nimh. nih.gov/health/topi cs/nnliep-kbqcmj-zo dications http__s://www.maribel. org/Itzdu-Iqnkgc-Vc lness/Treatments/Me xkar-Iuenlu-Brkatkm ions educated on all medications, benefits, side [...] B. Monitor medication response. Encourage suicide hotline (324) use if needed.. advised when to seek [...] monitor tremors in hands - labs 09/30 Ith[place] 0.3 Depakote 33.6 Discuss Gene sight and [...] contraception during tx plan to taper off Ith[place] r/t tremors - educated on labs for Ith[place] and Depakote level.- [facility] . Follow up [...] Denies plan/intent. a. Close monitoring. b. Encourage 009/831 hotline use if needed. c. Follow up [...] abuse, and addiction before prescribing stimulant medicines. 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 Random [place] prescription reviewed local pharmacy in [facility], no early refills on control substance [...] psychosis. Cannabis/marijuana information: http_s://shaheed.nih.g ov/publications/janice gfacts/cannabis-mar ijuana http_s://www.FamilyLeaf.Pinkdingo/cannabis- hul-fiqzbcsj-knguza avinash-adhd/ http_s://www.maribel.o rg/Aozhk-Daovmz-Ehn ness/Mental-Health- Conditions http_s://psychcentr al.com/depression/t bo-vcgfovvoc-hqubbd xs-fd-ozvvonoktn#tr eatments http__s://www.nimh. nih.gov/health/topi cs/nqymwd-gakcgo-uz dications http__s://www.maribel. org/Zitsf-Flehgg-Sh lness/Treatments/Me ehtt-Nvzben-Vawmdvw ions educated on all medications, benefits, side [...] monitor tremors in hands - labs 10/28 [place] 0.3 Depakote 33.6 Discuss Gene sight and [...] contraception during tx plan to taper off [place]th[place] r/t tremors - educated on labs for Ithaca and Depakote level.- [facility] . Follow up [...] abuse, and addiction before prescribing stimulant medicines. 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 Random [place] prescription reviewed local pharmacy in [facility], no early refills on control substance [...] psychosis. Cannabis/marijuana information: http_s://shaheed.nih.g ov/publications/janice gfacts/cannabis-mar ijuana http_s://www.FamilyLeaf.com/cannabis- skq-zcofpllq-bbtuxn avinash-adhd/ http_s://www.maribel.o rg/Uuzok-Beqbhu-Ybp ness/Mental-Health- Conditions http_s://psychcentr al.com/depression/t py-tptjrsdfv-mtgxvf ux-jn-wrdflyffus#tr eatments http__s://www.nimh. nih.gov/health/topi cs/kzagfz-vgcueo-ql dications http__s://www.maribel. org/Xmgtv-Xrsvif-Lg lness/Treatments/Me adlk-Lsuoju-Vudnkti ions educated on all medications, benefits, side [...] SODIUM EXTENDED-RELEASE - ORAL) material was published, Ithaca Carbonate Oral Capsule (LITHIUM - ORAL) material [...] Monitor medication response. C. Encourage suicide hotline (355) use if needed. D. advised when to [...] for near future plan to taper off Ithaca r/t tremors - educated on labs for Ithaca and Depakote level. . Follow up MIRELA and therapy scheduled- will make list of concerns for therapy and work on situational stressors, fears, and emotions in therapy labs completed 05/28/24 Valporic acid 36, Ithaca 0.4, WBC, CMP, CARDIAC enzymes scanned into chart LABS SCHEDULED today PCP will add Ithaca and Depakote Gene sight reviewed and Abilify [...] Denies plan/intent. a. Close monitoring. b. Encourage 368/461 hotline use if needed. c. Follow up [...] abuse, and addiction before prescribing stimulant medicines. 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 Random S [place] prescription reviewed local pharmacy in [place], no [...] psychosis. Cannabis/marijuana information: http_s://shaheed.nih.g ov/publications/janice gfacts/cannabis-mar ijuana http_s://www.Neovasc/cannabis- rgn-hbifmzww-yrbsli avinash-adhd/ http_s://www.maribel.o rg/Hdmhf-Kbakgm-Mat ness/Mental-Health- Conditions http_s://psychPro.comr Sencha.com/depression/t wd-egytanfdc-hqskpp es-jz-eybdomzqxs#tr eatments http__s://www.nimh. nih.gov/health/topi cs/eynaof-qbiihh-qy dications http__s://www.maribel. org/Hfjsa-Hkkgkn-Sa lness/Treatments/Me dyks-Jftona-Emwlgyn ions educated on all medications, benefits, side [...] of treatment with your doctor and caregivers. Ithaca has been associated with an increased risk of Ebstein's anomaly, a heart valve defect. Even though data suggest that the risk of Ebstein's anomaly from first trimester use of lithium is very low, an ultrasound of the heart is recommended at 16 to 20 weeks of gestation. Ithaca levels should be monitored monthly in early [...] usual. Are There Any Risks For Taking Ithaca For Long Periods Of Time? Hypothyroidism (low levels of thyroid hormone) may occur with long-term lithium use. Rare kidney problems have been associated with long-term use of lithium. The risk increases with high levels of lithium. Your doctor will monitor your kidney function at routine check-ups to ensure this does not occur. Summary of Black Box Warnings Ithaca Toxicity Ithaca toxicity is closely related to lithium blood [...] B. Monitor medication response. Encourage suicide hotline (164) use if needed.. advised when to seek [...] 150 mg twice a day hx r/t eduarod s/s at once a day and improved and monitor tremors in hands - labs 10/28 Ithaca 0.3 Depakote 33.6 Discuss Gene sight and [...] contraception during tx plan to taper off [place] r/t tremors - educated on labs for I[place] and Depakote level.- [facility] . Follow up MIRELA and therapy scheduled- will make list of concerns for therapy and work on situational stressors, fears, and emotions in therapy labs completed 2/25 Gene sight reviewed and Abilify may need [...] Denies plan/intent. a. Close monitoring. b. Encourage 213/421 hotline use if needed. c. Follow up [...] abuse, and addiction before prescribing stimulant medicines. 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 Random [place] prescription reviewed local pharmacy in [place], no early refills on control substance educated on non-stimulate and stimulates - Plan: Send refill to [facility] [...] psychosis. Cannabis/marijuana information: http_s://shaheed.nih.g ov/publications/janice gfacts/cannabis-mar ijuana http_s://www.Neovasc/cannabis- khq-eopfugdg-zjmiqp avinash-adhd/ http_s://www.maribel.o rg/Dcfok-Odvhbj-Syb ness/Mental-Health- Conditions http_s://psychPro.comr Sencha.com/depression/t tr-mxbksoqik-ssclsx sv-op-efslkwvfha#tr eatments http__s://www.nimh. nih.gov/health/topi cs/ycxfud-stnuxs-ru dications http__s://www.maribel. org/Yfihm-Cvhahm-Wu lness/Treatments/Me zeec-Zrcpeu-Sqqdmdm ions educated on all medications, benefits, side [...] common with first generation antipsychotics) and more. 05/26/2025 Other If you are planning on becoming , notify your health care provider so that he/she can best manage your medications. People living with bipolar disorder who wish to become face important decisions. It is important to discuss the risks and benefits of treatment with your doctor and caregivers. Ithaca has been associated with an increased risk of Ebstein's anomaly, a heart valve defect. Even though data suggest that the risk of Ebstein's anomaly from first trimester use of lithium is very low, an ultrasound of the heart is recommended at 16 to 20 weeks of gestation. Ithaca levels should be monitored monthly in early [...] usual. Are There Any Risks For Taking Ithaca For Long Periods Of Time? Hypothyroidism (low levels of thyroid hormone) may occur with long-term lithium use. Rare kidney problems have been associated with long-term use of lithium. The risk increases with high levels of lithium. Your doctor will monitor your kidney function at routine check-ups to ensure this does not occur. Summary of Black Box Warnings Ithaca Toxicity Ithaca toxicity is closely related to lithium blood [...] mg three time a day for anxiety- PRN HX Vistaril reported 25 mg dose more on edge - therapy continue- discuss DBT/CBT therapy discuss IOP program discuss journaling, coping skills, and identify triggers insurance requires 30 days at a time with refills 2. OCD A. fluvoxamine to 100mg. - anxiety and OCD- helping B. Monitor medication response. Encourage suicide hotline (856) use if needed.. 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 Follow up [...] Denies plan/intent. a. Close monitoring. b. Encourage 491/421 hotline use if needed. c. Follow up [...] in moderate reduce efficacy discuss and educated patient stopped Guanfacine 1 mg daily - caused dry mouth- Qelbree- Moderate gene interaction- [...] abuse, and addiction before prescribing stimulant medicines. 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 Random [facility] prescription reviewed local pharmacy in [facility], no early refills on control substance [...] psychosis. Cannabis/marijuana information: http_s://shaheed.nih.g ov/publications/janice gfacts/cannabis-mar lopezuana http_s://www.FamilyLeaf.com/cannabis- esq-egwryodl-kcetan avinash-adhd/ http_s://www.maribel.o rg/Bptxn-Lchowe-Qzq ness/Mental-Health- Conditions http_s://psychcentr al.com/depression/t nn-keqiuizcj-rbyzaj es-ru-cgfcsanhpz#tr yara http__s://www.nimh. nih.gov/health/topi cs/omclvv-psozww-hw dications http__s://www.maribel. org/Vdneo-Jhcijd-Ks lness/Treatments/Me vlmp-Rypxbu-Jqbwnwh ions educated on all medications, benefits, side [...] Next Appt Details Provider Name:Abby Adam , 06/29/2025 03:45:00 PM, [address], [place], [address], Insurance Providers Payer Name Payer Address Payer Phone Subscriber Number Group Number Insured Name Patient Relationship to Insured Coverage Start Date Coverage End Date [employer] [address] [place] [phone] [id number] Mickie Maier Self - patient is the [...]
--- OUTSIDE RECORDS SUMMARY | 2025-06-11 15:26 | XMS_ITS | Encounter Summary ---
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 07/23/2022 07/23/2022 08/02/2022 3:05 AM OFFICE ASSOCIATE COVID: Recovered Comment:Added based on recent COVID infection. 08/02/2022 08/03/2022 10/31/2022 3:05 AM C DT documented as of this encounter Care Teams Open Hearth Helper Relationship Specialty Start Date End Date Flor Zabala NP PCP - General 02/13/17 03/27/22 Leonardo Menjivar Jr., MD [address] [place] [address] [phone] PCP - General Internal Medicine 03/28/22 09/19/22 Jimmy Raphael PA [facility] [place] [address] PCP - General Physician Diesel Technician Mechanic 09/20/22 04/20/24 Unknown, Notinfile PCP - General 04/29/24 10/15/24 Roberta Johnson MD [address] [place] [address] [address] [place] [address] PCP - General Family Practice 10/16/24 Angie Velazquez MD Referring Physician Cardiology 07/25/18 Stephanie Anderson CNS [address] [place] [address] Nurse Practitioner Psychiatry 03/28/22 documented as of this encounter
--- OUTSIDE RECORDS SUMMARY | 2025-06-11 15:26 | XMS_ITS | Encounter Summary ---
Author Organization [facility] Address [address] [place] [address] Phone Care Team Providers Care Coding Educator Name Role Phone Flor Zabala NP Primary Care Provider [phone] Angie Velazquez MD Unavailable [phone] Otto Potts MD, Leonardo Walden Primary Care Provide r Stephanie Anderson DIRECTOR POWER Unavailable [phone] Jimmy Raphael Primary Care Provider [phone] Unknown, Notinfile Primary Care Provider Unavail able Roberta Johnson MD Primary Care Provider Encounter Details Date Type Department Care Team (Late st Contact Info) Description 11/06/2018 Telephone [facility] Cardiology [address] [facility] Advanced Medicine 8th [place] [address] [place] [address] Angie Velazquez MD [address] [place] [address] Social History Tobacco Use Types Packs/Day Years Used Date Smoking Tobacco: Never Smokeless Tobacco: Never Alcohol Use Standard Drinks/Week Comments No 0 (1 standard drink = 0.6 oz pur e alcohol) Comments Unknown Sex and Gender Information Value Date Recorded Sex Assigned at Not on file 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 08/02/2022 08/03/2022 10/31/2022 3:05 AM C DT documented as of this encounter Care Teams Coding Educator Relationship Specialty Start Date End Date Flor Zabala NP PCP - General 02/13/17 03/27/22 Leonardo Menjivar Jr., MD [address] [place] [address] [id number] PCP - General Internal Medicine 03/28/22 09/19/22 Jimmy Raphael PA [address] [place] [address] PCP - General Physician [facility] 09/20/22 04/20/24 Unknown, Notinfile PCP - General 04/29/24 10/15/24 Roberta Johnson MD [address] [place] [address] [address] [place] [address] PCP - General Family Practice 10/16/24 Angie Velazquez MD Referring Physician Cardiology 07/25/18 Stephanie Anderson CNS [address] [place] [address] Nurse Practitioner Psychiatry 03/28/22 documented as of this encounter
--- OUTSIDE RECORDS SUMMARY | 2025-06-11 15:26 | XMS_ITS | Encounter Summary ---
Author Organization [facility] Healthcare Address [address] [place] [address] Care Team Providers Care Wallpaper Consultant Name Role Phone Angie Velazquez MD Unavailable [phone] Stephanie Anderson Unavailable [phone] Unknown, Notinfile Primary Care Provider Unavail able Roberta Johnson MD Primary Care Provider Reason for Visit * Reason Onset Date Comments Scheduling Appointments 06/02/2024 Schedule patient for Imaging Lumbar/Sacral Facet Medial Branch Block Bilateral (06127) Encounter Details Date Type Department Care Team (Late st Contact Info) Description 06/02/2024 Telephone [facility] [address] [facility] [address] [place] [id number] Kiara Pollock MD [address] [place] [address] Scheduling Appointments (Schedule patient for Imaging Lumbar/Sacral Facet Medial Branch Block Bilateral (81598) ) Social History Tobacco Use Types Packs/Day [...] on file Legal Sex Female 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 [address] [place] [address] PCP - General Family Practice 10/16/24 Angie Velazquez MD Referring Physician Cardiology 07/25/18 Stephanie Anderson CNS [address] [place] [address] Nurse Practitioner Psychiatry 03/28/22 documented as of this encounter
--- OUTSIDE RECORDS SUMMARY | 2025-06-11 15:26 | XMS_ITS | Encounter Summary ---
Author Organization [facility] Address [address] [place] [address] Care Team Providers Care Store Custodian Name Role Phone Flora Ames MD Unavailable [phone] Jimmy Raphael Primary Care Provider [phone] Encounter Details Date Type Department Care Team (Late st Contact Info) Description 01/30/2025 Hospital Encounter [facility] [place], [place] [id number] Nicole Dick MD [address] [facility] [address] [place], [place] [id number] Social History Tobacco Use Types Packs/Day Years [...] 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 Answer Date of Assessment Author Status No 07/15/2021 6:11 PM TRAINING ANALYST Activ e * Do you have serious [...] 8:20 AM Selam Caicedo RN Active * [place] Suicide Severity Rating Scale (Screener/Recent Self-Report) Question [...] on filedocumented in this encounter Care Teams Store Custodian Relationship Specialty Start Date End Date Jimmy Raphael PA [address] [address] PCP - General PHYSICIAN EDUCATIONAL PROGRAM ASSISTANT 09/25/22 Flora Ames MD [facility]. [address] [id number] Nara Visa Hydrometer Tester CARDIOVASCULAR DISEASE 05/02/17 documented as of this encounter
--- OUTSIDE RECORDS SUMMARY | 2025-06-11 15:26 | XMS_ITS | Clinical Summary ---
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
--- OUTSIDE RECORDS SUMMARY | 2025-06-11 15:26 | XMS_ITS | Encounter Summary ---
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 [place], [place] [id number] PCP - General PHYSICIAN DUST BRUSH ASSEMBLER 09/25/22 Flora Ames MD [address] [place], [place] [phone] [employer] Designer CARDIOVASCULAR DISEASE 05/02/17 documented as of this encounter
--- OUTSIDE RECORDS SUMMARY | 2025-06-11 15:26 | XMS_ITS | Clinical Summary ---
Author Organization [facility] Address [address] [place] [address] Care Team Providers [employer] Control Specialist Name Role Phone Angie Velazquez MD Unavailable [phone] Stephanie Anderson FIELD SALES ASSOCIATE Unavailable [phone] Roberta Johnson MD Primary Care Provider Allergies [...] history of OCD and Bipolar disorder on [place] and Congenital heart disease on propranolol who [...] Yuli Barker MD Department of Pediatric Neurology, [facility] Division of Movement Disorders Lumbar [...] Type Department Care Team Description 04/20/2025 Telephone [facility] Medicine Cardiology [facility] 8th [place] [address] [place] [address] Stephen Garg MD 04/15/2025 5:15 PM CDT Office Visit [facility] Medical [facility] at [address] [address] Jenise Thomson NP Non-recurrent acute suppurative otitis media of right ear without spontaneous rupture of tympanic membrane (Primary Dx) 04/13/2025 8:15 AM CDT Ancillary Procedure [facility] Cardiology [facility] 8th [place] [address] [place] [address] Subaortic membrane; Palpitations 04/13/2025 Telephone [facility] Cardiology [address] [place] [address] 8th [place] [address] [place] [address] Stpehen Garg MD Scheduling Testing/Treatment 04/13/2025 Telephone [facility] Cardiology [address] [place] [address] 8th [place] [address] [place] [address] Stephen Garg MD 04/09/2025 1:30 PM CDT Office Visit [facility] Medicine Cardiology [address] [facility] 8th [place] [address] [place] [address] Stephen Garg MD Subaortic membrane (Primary Dx); Status post resection of fibrous subaortic stenosis; Status post myomectomy; Nonrheumatic aortic valve insufficiency; Obstructive sleep apnea; Palpitations; Class 3 severe obesity due to excess calories without serious comorbidity with body mass index (BMI) of 40.0 to 44.9 in adult 04/09/2025 10:36 AM CDT - 04/09/2025 11:59 PM CDT Hospital Encounter [facility] Cardiac Diagnostic Lab [address] [facility] 8th [place] [address] Subaortic membrane Discharge Disposition: Discharge to home or self care 03/31/2025 10:28 AM CDT - 03/31/2025 2:20 PM CDT Emergency [facility] Emergency Department [address] [place] [address] Darline Herndon MD Dizziness (Primary Dx) Discharge [...] Comments SUBAORTIC STENOSIS REPAIR Intiially in 09/1998 ([place]) and then in 01/02/06 ([facility]) KONNO PROCEDURE 01/02/2006 modified EXAMINATION UNDER [...] [place] Arthritis Mother Hilary Ivory Depression Mother Hialry Ivory Hearing loss Mother Hilary Ivory Hyperlipidemia [...] on file Legal Sex Female 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 Gender Identity Not on file Sexual Orientation [...] Procedure Name Priority Date/Time Associated Diagnosis Comments EXTENDED/LONG TERM HOLTER PATCH (>48 HOURS UP TO 7 [...] CDT from Last 3 Months Results * Extended/Senior Living Holter Patch (>48 hours up to 7 days) (04/13/2025 8:39 AM CDT) Anatomical Region Laterality Modality Electrocardiogra phy 04/17/2025 5:40 PM CDT Narrative 04/23/2025 2:44 PM CDT [facility] [place] [address] [place] [address] HOLTER MONITOR Patient Name: MICKIE IVORY S : 1995 (29y 3m) Sex: F Study Date: 04/17/2025 05:40:34 PM Ht(Inch): Wt(Lb): BSA: Tech: Location: [facility] Order Provider: STEPHEN GARG BMI: Ref Provider: STEPHEN GARG PROCEDURES: Holter Report: EXTENDED/LONG TERM HOLTER PATCH (>48 HOURS UP TO 7 DAYS) [[id number]]. Enrollment Period: 2025-04-17 00:00:00 through 2025-04-20 00:00:00. Location: [facility]. INDICATIONS: Q24.4 Congenital subaortic stenosis and R00.2 [...] events Runs (VT): 0 events Total beats: 198829 SIGNIFICANT PAUSES: 0 >3 sec Protocol: Recording Duration (Ordered): [id number] Recording Duration (Actual): 973905.86 SUMMARY: *The predominant rhythm was Sinus. *The [...] Note Stefano Penn MD PhD - 04/23/2025 [facility] [place] [address] [place] [address] HOLTER MONITOR Patient Name: MICKIE IVORY S : 1995 (29y 3m) Sex: F Study Date: 04/17/2025 05:40:34 PM Ht(Inch): Wt(Lb): BSA: Tech: Location: [facility] Order Provider: STEPHEN GARG BMI: Ref Provider: STEPHEN GARG PROCEDURES: Holter Report: EXTENDED/LONG TERM HOLTER PATCH (>48 HOURS UP TO 7 DAYS)[[id number]]. Enrollment Period: 2025-04-17 00:00:00 through 2025-04-20 00:00:00. Location: [facility]. INDICATIONS: Q24.4 Congenital subaortic stenosis and R00.2 [...] events Runs (VT): 0 events Total beats: 817172 SIGNIFICANT PAUSES: 0 >3 sec Protocol: Recording Duration (Ordered): [id number] Recording Duration (Actual): 159586.86 SUMMARY: *The predominant rhythm was Sinus. *The [...] The PDF can be found in the [facility] Patient chart. Please go to theCardiology tab, [...] AM CDT Narrative 04/09/2025 8:51 PM CDT [facility] [place] [address] [place] [address] Transthoracic Echocardiographic Report Patient Name: MICKIE IVORY S : 1995 (29y 3m) Gender: F Study Date: 04/09/2025 10:53:15 AM Ht(Inch): 63 Wt(Lb): 233.03 BSA: 2.17 Field Coil Winder: Zac Parry RDCS, ACS Location: [facility] Order Provider: STEPHEN GARG Heart Rate: 73 BMI: 41.27 BP: 142 / 61 Ref Provider: STEPHEN GARG PROCEDURES: Echocardiographic Report: Transthoracic complete echo with strain imaging, 2D, spectral and tissue Doppler, color flow Doppler, M-mode. INDICATIONS: Q24.4 Congenital subaortic stenosis. CONCLUSIONS: 1. Subaortic membrane s/p resection, repeat resection and modified Konno procedure, and subsequent resection of recurrent membrane and septal myectomy. 2. Qgwu-xq-zwwkzwot central aortic valve regurgitation. Mild aortic valve [...] leaflet. Aortic Valve: Normal trileaflet aortic valve. Houq-cp-syfarhae central aortic valve regurgitation. Mild aortic valve [...] LA Length 4C 5.71 cm AI Decel [place] 3.49 m/s2 LA Length 2C 5.23 cm [...] Procedure Note Stephen Garg MD - 04/09/2025 [facility] [place] [address] [place] [address] Transthoracic Echocardiographic Report Patient Name: MICKIE IVORY S : 1995 (29y 3m) Gender: F Study Date: 04/09/2025 10:53:15 AM Ht(Inch): 63 Wt(Lb): 233.03 BSA: 2.17 Field Coil Winder: Zac Parry RDCS, ACS Location: [facility] Order Provider:STEPHEN GARG Heart Rate: 73 BMI: 41.27 BP: 142 / 61 Ref Provider: STEPHEN GARG PROCEDURES: Echocardiographic Report: Transthoracic complete echo with strain imaging,2D, spectral and tissue Doppler, color flow Doppler, M-mode. INDICATIONS: Q24.4 Congenital subaortic stenosis. CONCLUSIONS: 1. Subaortic membrane s/p resection, repeat resection and modified Konnoprocedure, and subsequent resection of recurrent membrane and septal myectomy. 2. Vlun-np-qfbftpmg central aortic valve regurgitation. Mild aortic valvestenosis. [...] posteriorleaflet. Aortic Valve: Normal trileaflet aortic valve. Zoem-ro-uvzmnugx centralaortic valve regurgitation. Mild aortic valve stenosis. [...] [ -25.0 - -18.0 ] AI Decel Nwwj1470.45 sec LA Length 4C 5.71 cm AI Decel [place]3.49 m/s2 LA Length 2C 5.23 cm AI ZHY775.48 msec LA Volume BP 49.01 ml MV [...] cm IVC Collapse 74 % MV Decel Lofr514.74 msec [ 104.00 - 258.00 ] AoR [...] Data last revised 2020. Testing performed by: [address] [address] Trop T hs delta 0 ng/L MELANI HDEZ Comment:Testing performed by : [address] [address] Trop T hs interp Insignificant MELANI Comment:Testing performed by : [address] [address] Blood 03/31/2025 11:4 6 AM CDT 03/31/2025 11:52 AM CDT us George Zuniga ID LAB BLOOD ORDERABL ES Final Result [facility] [address] [facility] Department of Laboratories [place], [place] [id number] * Drugs of Abuse Screen, Urine without Confirmation (03/31/2025 11:00 AM CDT) [facility] Amphetamine, ur Not Detected CutOff 500ng/mL Comment: Interpretive Data - Amphetamines: Samples containing greater than 500 ng/mL d-methamphetamine or other cross-reacting amphetamine compounds are reported as positive. Amphetamine immunoassays are subject to significant false positive rates due to cross-reactivity of non-amphetamine drugs. Confirmatory testing required for definitive results. Current Interpretive Data was last reviewed 2023. Testing performed by: [address] [address] Barbiturates, ur Not Detected CutOff 200ng/mL MELANI Comment: Interpretive Data - Barbiturates: Samples containing greater than 200 ng/mL secobarbital or other cross-reacting barbiturate compounds are reported as positive. False positive and false negative results are possible. Confirmatory testing required for definitive results. Current Interpretive Data was last reviewed 2023. Testing performed by: [address] [address] Benzodiazepines, ur Not Detected CutOff 100ng/mL MELANI Comment: Interpretive Data - Benzodiazepines: Samples containing greater than 100 ng/mL nordiazepam or other cross-reacting compounds are reported as positive. False positive and false negative results are possible. Confirmatory testing required for definitive results. Current Interpretive Data was last reviewed 2023. Testing performed by: [address] [address] Cannabinoids, ur Not Detected CutOff 50 ng/mL MELANI Comment: Interpretive Data - Cannabinoids: Samples containing greater than 50 ng/mL delta-9 THC -COOH or other cross- reacting compounds are reported as positive. False positive and false negative results are possible. Confirmatory testing required for definitive results. Current Interpretive Data was last reviewed 2023. Testing performed by: [address] [address] Cocaine, ur Not Detected CutOff 150ng/mL [facility] Comment: Interpretive Data - Cocaine: Samples containing greater than 150 ng/mL benzoylecgonine or other cross- reacting compounds are reported as positive. False positive and false negative results are possible. Confirmatory testing required for definitive results. Current Interpretive Data was last reviewed 2023. Testing performed by: [facility], [address] [place] [address]., [address] Fentanyl, Ur Not Detected CutOff 5 ng/mL [facility] Comment: Interpretive Data - Fentanyl: Samples containing greater than 1 ng/mL fentanyl or other cross-reacting fentanyl compounds are reported as positive. False positive and false negative results are possible. Confirmatory testing required for definitive results. Current Interpretive Data was last reviewed 2023. Testing performed by: [address] [address] Methadone, ur Not Detected CutOff 300ng/mL [facility] Comment: Interpretive Data - Methadone: Samples containing greater than 300 ng/mL d,l-methadone or other cross-reacting compounds are reported as positive. False positive and false negative results are possible. Confirmatory testing required for definitive results. Current Interpretive Data was last reviewed 2023. Testing performed by: [address] [address] Opiates, ur Not Detected CutOff 300ng/mL [facility] Comment: Interpretive Data - Opiates: Samples containing greater than 300 ng/mL morphine or other cross-reacting compounds are reported as positive. False positive and false negative results are possible. Confirmatory testing required for definitive results. Current Interpretive Data was last reviewed 2023. Testing performed by: [address] [address] Oxycodone, ur Not Detected CutOff 100ng/mL [facility] Comment: Interpretive Data - Oxycodone: Samples containing greater than 100 ng/mL oxycodone or other cross-reacting compounds are reported as positive. False positive and false negative results are possible. Confirmatory testing required for definitive results. Current Interpretive Data was last reviewed 2023. Testing performed by: [address] [address] Phencyclidine, ur Not Detected CutOff 25 ng/mL [facility] Comment: Interpretive Data - Phencyclidine: Samples containing greater than 25 ng/mL phencyclidine or other cross-reacting compounds are reported as positive. False positive and false negative results are possible. Confirmatory testing required for definitive results. Current Interpretive Data was last reviewed 2023. Testing performed by: [address] [address] Urine Creatinine 113 mg/dL MELANI Comment: Interpretive Data Urine Creatinine: < 10 mg/dL is extremely dilute = or > 10 but < 20 mg/dL is dilute = or > 20 mg/dL is normal Current Interpretive Data was last revised on 2017. Testing performed by: [address] [address] Urine 03/31/2025 11:0 0 AM CDT 03/31/2025 11:03 AM CDT Narrative MELANI - 03/31/2025 11:38 AM CDT Drug of Abuse screening is performed by immunoassay for medical purposes only. This is not to be used for Pain Management purposes. Darline Herndon MD LAB URINE ORDERABLES Munira l Result Performing Organization Address City/[facility] Co de Phone Number [place] [address] [facility] [place] [address] * Sepsis Lactate w/ Reflex (03/31/2025 10:47 AM CDT) Sepsis Lactate 0.7 0.7 - 2.0 mmol/L Comment:Testing performed by : [address] [address] Blood 03/31/2025 10:4 7 AM CDT 03/31/2025 10:51 AM CDT Darline Herndon MD LAB BLOOD ORDERABLES Munira l Result Performing Organization Address City/[facility]/ZIP Co de Phone Number [facility] [address] [facility] [address] [place] [address] * D-dimer, quantitative (03/31/2025 10:47 AM CDT) [...] last revised on 2019. Testing performed by: [facility], [address] [place] [address]., [address] Blood 03/31/2025 10:4 7 AM CDT 03/31/2025 10:51 AM CDT us George GUNN LAB BLOOD ORDERABL ES Final Result MELANI [address] [facility] [place] [address] * XR Chest 1 Vw [...] signed by Leonardo ZUNIGA: NADIA Report ID: [id number] Reading Location: [id number] Procedure Note Leonardo Mcgraw MD - 03/31/2025 [...] Leonardo Mcgraw M.D. MJ: NADIA Report ID: [id number] Reading Location: [id number] us Darline Herndon MD IMG XR PROCEDURES [...] Michael Maher M.D. CH: TK Report ID: [id number] Reading Location: [id number] Procedure Note Michael Maher MD - 03/31/2025 [...] Michael Maher M.D. CH: TK Report ID: [id number] Reading Location: [place] [address] [facility] PROCEDURES Final Result * POCT hCG, urine (03/31/2025 10:03 AM CDT) HCG, ur, POC Negative Negative Lot Number [id number] QC Backgroud Clear Acceptable QC Control Line Acceptable Urine 03/31/2025 10:0 3 AM CDT Result [facility] Chad GUNN POINT OF CARE TEST ORDERABLES Final Result * Urinalysis reflex to microscopic and culture Urine, clean voided (03/31/2025 9:49 AM CDT) Color, ur Yellow Yellow Comment:Testing performed by : [address] [address] Clarity, ur Clear Clear MELANI Comment:Testing performed by : [address] [address] Specific gravity, ur 1.019 1.003 - 1.030 MELANI Comment:Testing performed by : [address] [address] pH, urine 6.5 MELANI Comment: Interpretive Data U rine pH is affected by diet, medications, systemic acid-base disturbances, and renal tubular function. pH may affect urinary stone formation. For example, urine pH below 6.0 may help reduce the tendency for calcium phosphate stones and pH greater than 6.0 may reduce the tendency for uric acid stone formation. Source: [employer] Current Interpretive Data was last revised on 2017 Testing performed by: [address] [address] Protein, ur ql Negative Negative MELANI Comment:Testing performed by : [facility], [address] [place] [address], [place]., [address] Glucose, ur ql Negative Negative MELANI Comment:Testing performed by : [facility], [address] [place] [address], [place]., [address] Ketones, ur Negative Negative MELANI Comment:Testing performed by : [address], [place]., [address] Bilirubin, ur Negative Negative MELANI Comment:Testing performed by : [facility], [address] [place] [address], [place]., [address] Blood, ur Negative Negative MELANI Comment:Testing performed by : [address], [place]., [address] Urobilinogen, ur <2.0 <2.0 mg/dL MELANI Comment:Testing performed by : [address], [place]., [address] Nitrite, ur Negative Negative MELANI Comment:Testing performed by : [address], [place]., [address] Leukocyte esterase, ur Negative Negative MELANI Comment:Testing performed by : [address], [place]., [address] UA reflex comment Reflex conditions for microscopic UA and culture not met. MELANI Comment:Testing performed by : [facility], [address] [place] [address], [place]., [address] Urine, clean voided 03/31/2025 9:49 AM CDT 03/31/2025 10:18 AM CDT us George GUNN LAB MICROBIOLOGY - GENERAL ORDERABLES Final Result MELANI HDEZ [address] [facility] Department [place] [address] * Troponin T high-sensitivity series (baseline, 2hr, 4hr, 6hr) (03/31/2025 9:46 AM CDT) Trop T hs <6 <=14 ng/L Comment: Interpretive Data For further hscTnT resources including the diagnostic algorithm and an aid in interpretation, copy and paste this link: https://nrl.testcatalog.org/show/hsTrop Current Interpretive Data last revised 2020. Testing performed by: [address] [address] Blood 03/31/2025 9:46 AM CDT 03/31/2025 10:18 AM CDT George Zuniga PA LAB BLOOD ORDERABL ES Final Result Performing Organization Address City/[facility] Co de Phone Number [facility] [place] [address] * eGFR (03/31/2025 9:46 AM [...] was last reviewed 2021. Testing performed by: [address] [address] Blood 03/31/2025 9:46 AM CDT 03/31/2025 10:18 AM CDT George Tolulade Adesida PA LAB BLOOD ORDERABL ES Final Result Performing Organization Address [facility] Co de Phone Number MELANI [address] [facility] Department [place] [address] * Differential, auto (03/31/2025 9:46 AM CDT) Neutrophil abs 3.48 1.50 - 6.50 K/cumm Comment:Testing performed by : [address] [address] Imm gran abs 0.01 0.00 - 0.10 K/cumm MELANI Comment:Testing performed by : [address] [address] Lymphocyte abs 1.21 0.80 - 3.30 K/cumm MELANI Comment:Testing performed by : [address] [address] Monocyte abs 0.43 0.20 - 0.80 K/cumm MELANI Comment:Testing performed by : [address] [address] Eosinophil abs 0.14 0.00 - 0.50 K/cumm MELANI Comment:Testing performed by : [address] [address] Basophil abs 0.02 0.00 - 0.10 K/cumm MELANI Comment:Testing performed by : [address] [address] Neutrophil pct 65.8 % MELANI Comment: Interpretive Data Percent cell count reference ranges are not reported, since discordance with absolute values may lead to misinterpretation of CBC data. Current Interpretive Data was last revised on 2017. Testing performed by: [address] [address] Imm gran pct 0.2 % MELANI Comment: Interpretive Data Percent cell count reference ranges are not reported, since discordance with absolute values may lead to misinterpretation of CBC data. Current Interpretive Data was last revised on 2017. Testing performed by: [address] [address] Lymphocyte pct 22.9 % MELANI Comment: Interpretive Data Percent cell count reference ranges are not reported, since discordance with absolute values may lead to misinterpretation of CBC data. Current Interpretive Data was last revised on 2017. Testing performed by: [address] [address] Monocyte pct 8.1 % MELANI Comment: Interpretive Data Percent cell count reference ranges are not reported, since discordance with absolute values may lead to misinterpretation of CBC data. Current Interpretive Data was last revised on 2017. Testing performed by: [address] [address] Eosinophil pct 2.6 % MELANI Comment: Interpretive Data Percent cell count reference ranges are not reported, since discordance with absolute values may lead to misinterpretation of CBC data. Current Interpretive Data was last revised on 2017. Testing performed by: [address] [address] Basophil pct 0.4 % MELANI Comment: Interpretive Data Percent cell count reference ranges are not reported, since discordance with absolute values may lead to misinterpretation of CBC data. Current Interpretive Data was last revised on 2017. Testing performed by: [address] [address] Blood 03/31/2025 9:46 AM CDT 03/31/2025 10:18 AM CDT George GUNN LAB BLOOD ORDERABL ES Final Result MELANI [address] [facility] Department of Laboratories [place], [place] [id number] * (ABNORMAL) CBC with auto differential (03/31/2025 9:46 AM CDT) WBC 5.29 3.80 - 9.90 K/cumm Comment:Testing performed by : [address] [address] Hgb 11.6(L) 11.9 - 15.5 g/dL MELANI HDEZ Comment:Testing performed by : [address] [address] Hct 36.2 35.6 - 45.5 % MELANI Comment:Testing performed by : [address], [address] Plt 217 150 - 400 K/cumm MELANI Comment:Testing performed by : [address] [address] MPV 8.7(L) 9.1 - 12.3 fL MELANI Comment:Testing performed by : [address], [address] RBC 4.60 3.90 - 5.20 M/cumm MELANI Comment:Testing performed by : [address], [address] MCV 78.7(L) 81.3 - 96.4 fL MELANI Comment:Testing performed by : [address], [address] MCH 25.2(L) 27.1 - 33.3 pg MELANI Comment:Testing performed by : [address], [address] MCHC 32.0(L) 32.3 - 35.7 g/dL MELANI Comment:Testing performed by : [address], [address] RDW CV 14.8 11.1 - 14.9 % MELANI Comment:Testing performed by : [address], [address] RDW SD 42.0 35.7 - 48.1 fL MELANI Comment:Testing performed by : [address], [address] NRBC abs 0.00 0.00 - 0.01 K/cumm MELANI Comment:Testing performed by : [address], [address] Blood 03/31/2025 9:46 AM CDT 03/31/2025 10:18 AM CDT us George GUNN LAB BLOOD ORDERABL ES Final Result [facility] Department [place] [address] * Magnesium (03/31/2025 9:46 AM CDT) Pathologist [facility] Magnesium 2.2 1.4 - 2.5 mg/dL Comment:Testing performed by : [address] [address] Blood 03/31/2025 9:46 AM CDT 03/31/2025 10:18 AM CDT us Darline Herndon MD LAB BLOOD ORDERABLES Munira l Result MELANI [facility] Department [place] [address] * Comprehensive metabolic panel (03/31/2025 9:46 AM CDT) [facility] Sodium 138 135 - 145 mmol/L Comment:Testing performed by : [address] [address] Potassium, pl 4.4 3.3 - 4.9 mmol/L MELANI Comment:Testing performed by : [address] [address] Chloride 103 97 - 110 mmol/L MELANI Comment:Testing performed by : [address] [address] CO2 24 22 - 32 mmol/L MELANI Comment:Testing performed by : [address] [address] Anion gap 11 2 - 15 mmol/L MELANI Comment:Testing performed by : [address] [address] BUN 14 6 - 25 mg/dL MELANI Comment:Testing performed by : [address] [address] Creatinine 0.94 0.60 - 1.10 mg/dL MELANI Comment:Testing performed by : [address] [address] Glucose 95 70 - 199 mg/dL MELANI [...] was last revised 2022. Testing performed by: [address] [address] Calcium 9.4 8.5 - 10.3 mg/dL MELANI Comment:Testing performed by : [address] [address] Bilirubin, total <0.2 0.1 - 1.2 mg/dL MELANI Comment:Testing performed by : [address] [address] Protein, pl 7.6 6.5 - 8.5 g/dL MELANI Comment:Testing performed by : [address] [address] Albumin 3.9 3.5 - 5.0 g/dL MELANI Comment:Testing performed by : [address] [address] Alk phos 82 40 - 130 Units/L MELANI Comment:Testing performed by : [address] [address] ALT 12 7 - 45 Units/L MELANI Comment:Testing performed by : [address] [address] AST 14 10 - 45 Units/L MELANI Comment:Testing performed by : [address] [address] Blood 03/31/2025 9:46 AM CDT 03/31/2025 10:18 AM CDT George GUNN LAB BLOOD ORDERABL ES Final Result Performing Organization Address [facility]/ZIP Co de Phone Number MELANI [address] [facility] [place] [address] * ECG 12 lead (03/31/2025 9:45 AM CDT) Ventricular Rate EKG/Min 66 BPM [facility] Atrial Rate 66 BPM [facility] PA-Interval (MSEC) 198 ms [facility] QRS-Interval (MSEC) 118 ms [facility] QT-Interval (MSEC) 440 ms [facility] QTc 461 ms [facility] P [place] 41 degrees [facility] R [place] -25 degrees [facility] T [place] 25 degrees [facility] Diagnosis Normal sinus rhythm Left ventricular hypertrophy with QRS widening Abnormal ECG When compared with ECG of 23-JUL-2022 19:05, No significant change was found Confirmed by KENDALL PENA M.D. ([id number]) on 03/31/2025 8:27:38 PM [facility] 03/31/2025 9:45 AM CDT 03/31/2025 8:27 PM CDT us Darline Herndon MD ECG ORDERABLES Final Res ult Performing Organization Address [facility] Co de Phone Number [facility] * POCT glucose (03/31/2025 9:35 AM CDT) Glucose, POC 88 70 - 199 mg/dL Comment:Testing performed by : [facility], [address] [place] [address]., [id number] Blood 03/31/2025 9:35 AM CDT 03/31/2025 9:35 AM CDT us Notinfile Unknown LAB POCT ORDERABLES - DEVICE F inal Result Performing Organization Address [facility]/ZIP Co de Phone Number MELANI [address] [facility] Department [place] [address] from Last 3 Months Insurance [employer] [place] [employer] OPEN ACCESS HEALTHLINK OPEN ACCESS HEALTHLINK OPEN ACCESS HEALTHLINK OPEN ACCESS [facility] HEALTHLINK OPEN ACCESS Advance Directives For more information, please contact: [phone] Documents on File Type Date Recorded Patient Microbial Specialist Expl anation ADVANCE DIRECTIVE 09/03/2018 5:49 AM ADVANCE DIRECTIVE 08/28/2018 12:47 PM * Full Code (Latest Code Status on File) Date Activated Date Inactivated Comments 09/03/2018 12:59 PM 09/06/2018 9:00 PM Care Teams Airways Control Specialist Relationship Specialty Start Date End Date Roberta Johnson MD [address] [facility] [address] [place] [address] PCP - General Family Practice 10/16/24 Angie Velazquez MD Referring Physician Cardiology 07/25/18 Stephanie Anderson, FIELD SALES ASSOCIATE [address] [place] [address] Nurse Practitioner Psychiatry 03/28/22
--- OUTSIDE RECORDS SUMMARY | 2025-06-11 15:26 | XMS_ITS | Encounter Summary ---
Author Organization [facility] Address [address] [place] [id number] Care Team Providers Care Cyanide Furnace Operator Name Role Phone Flor Zabala NP Primary Care Provider [phone] Flora Ames MD Unavailable [phone] Jimmy Raphael Primary Care Provider Encounter Details Date Type Department Care Team (Late st Contact Info) Description 04/30/2017 Abstract [facility] AT [address] [address] Yumiko Fletcher, [facility] Social History Tobacco Use Types Packs/Day Years [...] * (ABNORMAL) BASIC METABOLIC PANEL (12/29/2016) Pathologist [facility] SODIUM S/P/B 140 POTASSIUM S/P/B 4.6 CO2 22 CHLORIDE S/P/B 100 GLUCOSE 99 mg/dL CALCIUM S/P/B 9.7 BUN 15 CREATININE S/P/B 0.85 0.5 - 1.0 EGFR AFR. AMER. 112(A) <=90 EGFR NON-AFR. AMER. 97(A) <=90 12/29/2016 us Doc [facility] Abstract LABORATORY Final Result * THYROID STIM HORMONE, TSH (12/29/2016) Pathologist [facility] TSH 2.250 12/29/2016 us Doc [facility] Abstract [...] on filedocumented in this encounter Care Teams Cyanide Furnace Operator Relationship Specialty Start Date End Date Flor Zabala NP PCP - General FAMILY PRACTICE 01/05/16 09/24/22 Jimmy Raphael PA [address] [place] [address] PCP - General PHYSICIAN CASH MANAGEMENT COORDINATOR 09/25/22 Flora Ames MD [address] [place] [address] Julio C Director Of Estate CARDIOVASCULAR DISEASE 05/02/17 documented as of this encounter
--- OUTSIDE RECORDS SUMMARY | 2025-06-11 15:26 | XMS_ITS | Encounter Summary ---
Author Organization [facility] [employer] [facility] Address [address] [place] [address] Phone Care Team Providers Care Coding Tech Name Role Phone Flor Zabala NP Primary Care Provider [phone] Angie Velazquez MD Unavailable [phone] Otto Potts MD, Leonardo Walden Primary Care Provide r Stephanie Anderson Unavailable [phone] Jimmy Raphael Primary Care Provider [phone] Unknown, Notinfile Primary Care Provider Unavail able Roberta Johnson MD Primary Care Provider Encounter Details Date Type Department Care Team (Late st Contact Info) Description 01/17/2018 Telephone [facility] Medicine Scheduling [address] [place] [address] [place] [address] [place] [address] Social History Tobacco Use Types Packs/Day Years Used Date Smoking Tobacco: Never Comments Unknown Sex and Gender Information Value Date Recorded Sex Assigned at Not on file Legal Sex Female 1:47 AM RN WOUND CARE Gender Identity Not on file Sexual Orientation [...] the result is from a facility outside [facility] . 07/23/2022 07/23/2022 08/02/2022 3:05 AM RN WOUND CARE COVID: Recovered Comment:Added based on recent COVID infection. 08/02/2022 08/03/2022 10/31/2022 3:05 AM C DT documented as of this encounter Care Teams Coding Tech Relationship Specialty Start Date End Date Flor Zabala NP PCP - General 02/13/17 03/27/22 Leonardo Menjivar Jr., MD [address] [place] [id number] PCP - General Internal Medicine 03/28/22 09/19/22 Jimmy Raphael PA [address] [place] [address] PCP - General Physician Political Science Instructor 09/20/22 04/20/24 Unknown, Notinfile PCP - General 04/29/24 10/15/24 Roberta Johnson MD [facility] 2 [place], [place] [id number] PCP - General Family Practice 10/16/24 Angie Velazquez MD Referring Physician Cardiology 07/25/18 Stephanie Anderson CNS [address] [place] [address] Nurse Practitioner Psychiatry 03/28/22 documented as of this encounter
== END 2025-06-10 19:26 | disposition home or self-care (01) ==
PROVIDERS: Emergency Provider Physician Assistant; PCP Family Medicine
DX: S83.91XA Sprain of unspecified site of right knee, initial encounter (principal); E28.2 Polycystic ovarian syndrome; E66.01 Morbid (severe) obesity due to excess calories; Z68.41 Body mass index [BMI] 40.0-44.9, adult; G47.33 Obstructive sleep apnea (adult) (pediatric); F31.9 Bipolar disorder, unspecified; F41.9 Anxiety disorder, unspecified; F42.9 Obsessive-compulsive disorder, unspecified; Z86.2 Personal history of diseases of the blood and blood-forming organs and certain disorders involving the immune mechanism; Z79.899 Other long term (current) drug therapy; Z79.3 Long term (current) use of hormonal contraceptives; W19.XXXA Unspecified fall, initial encounter
CPT/HCPCS: 73564; 99283